=== PATIENT | male | born 1960 | race Caucasian/White ===

== ENCOUNTER 2019-02-27 14:41 | Inpatient (IN) | payer MEDICARE, MEDICAID ==
[~2019-02-27] VITALS: Ht 188 cm; Wt 102.3 kg
[2019-02-27 15:32] LABS: BASO # 0.1 x10^3/uL (0.0-0.2); BASO % 1 % (0-3); EOS % 1 % (0-3); HEMATOCRIT 47.6 % (39.0-53.0); HEMOGLOBIN 16.4 g/dL (13.0-17.5); LYMPH # 1.2 x10^3/uL (1.0-4.8); LYMPH % 20 % (24-48); MEAN CORPUSCULAR HEMOGLOBIN 32 pg (25-35); MEAN CORPUSCULAR HGB CONC 35 g/dL (31-37); MEAN CORPUSCULAR VOLUME 93 fL (79-100); MONO # 0.4 x10^3/uL (0.0-1.1); MONO % 8 % (0-9); NEUT # 4.2 x10^3uL (1.8-7.7); NEUT % 71 % (31-73); PLATELET COUNT 201 x10^3/uL (140-400); RED CELL DISTRIBUTION WIDTH 13.6 % (11.5-14.5)
[2019-02-27 15:41] LABS: CALCIUM 9.5 mg/dL (8.5-10.1); CREATININE 1.1 mg/dL (0.7-1.3); GFR 68.8; POTASSIUM 3.9 mmol/L (3.5-5.1)
[2019-02-27 15:47] LABS: ALBUMIN 4.1 g/dL (3.4-5.0); ALBUMIN/GLOBULIN RATIO 1.1 (1.0-1.7); MAGNESIUM 1.9 mg/dL (1.8-2.4); TOTAL BILIRUBIN 0.4 mg/dL (0.2-1.0); TOTAL PROTEIN 7.8 g/dL (6.4-8.2)
--- NOTE | 2019-02-27 15:47 | PHYS DOC ---
Past History Past Medical History: Bipolar, COPD, GERD, Hypertension, Hypothyroid, Schizophrenia, Other Additional Past Medical Histor: POLYDIPSIA Past Surgical History: No Surgical History Alcohol Use: None Drug Use: None Adult General Chief Complaint Chief Complaint: MEDICAL CLEARANCE [facility] HPI Patient is a 58-year-old male who arrives via police for medical clearance for senior behavioral health after getting more aggressive with staff at facility in [place]. Patient denies any chest pain or shortness of breath. He denies any nausea, vomiting or diarrhea. He denies any specific complaints at this time.[] Review of Systems Review of Systems Constitutional: Denies fever or chills [] Respiratory: Denies cough or shortness of breath [] Cardiovascular: No additional information not addressed in HPI [] GI: Denies abdominal pain, nausea, vomiting, bloody stools or diarrhea [] Neurologic: Denies headache, focal weakness or sensory changes [] All other systems were reviewed and found to be within normal limits, except as documented in this note. Allergies Allergies Allergies Coded Allergies Type Severity Reaction Last Updated Verified blueberry Allergy Unknown 02/27/19 Yes Physical Exam Physical Exam Constitutional: Well developed, well nourished, no acute distress, non-toxic appearance. [] HENT: Normocephalic, atraumatic, bilateral external ears normal, oropharynx dry, no oral exudates, nose normal. [] Eyes: PERRLA, EOMI, conjunctiva normal, no discharge. [] Neck: Normal range of motion, no tenderness, supple, no stridor. [] Cardiovascular: Regular rate and rhythm[] Lungs & Thorax: Bilateral breath sounds clear to auscultation [] Abdomen: Bowel sounds normal, soft, no tenderness. [] Skin: Warm, dry, no erythema, no rash. [] Extremities: No tenderness, no cyanosis, no clubbing, ROM intact. [] Neurologic: Alert and oriented X 3, no focal deficits noted. [] Current Patient Data Vital Signs Vital Signs Date Time Temp Pulse Resp B/P (MAP) Pulse Ox O2 Delivery O2 Flow Rate FiO2 02/27/19 15:13 97.7 101 16 98 Room Air Lab Results Laboratory Tests Test 02/27/19 15:19 White Blood Count 6.0 x10^3/uL (4.0-11.0) Red Blood Count 5.10 x10^6/uL (4.30-5.70) Hemoglobin 16.4 g/dL (13.0-17.5) Hematocrit 47.6 % (39.0-53.0) Mean Corpuscular Volume 93 fL (79-100) Mean Corpuscular Hemoglobin 32 pg (25-35) Mean Corpuscular Hemoglobin Concent 35 g/dL (31-37) Red Cell Distribution Width 13.6 % (11.5-14.5) Platelet Count 201 x10^3/uL (140-400) Neutrophils (%) (Auto) 71 % (31-73) Lymphocytes (%) (Auto) 20 % (24-48) L Monocytes (%) (Auto) 8 % (0-9) Eosinophils (%) (Auto) 1 % (0-3) Basophils (%) (Auto) 1 % (0-3) Neutrophils # (Auto) 4.2 x10^3uL (1.8-7.7) Lymphocytes # (Auto) 1.2 x10^3/uL (1.0-4.8) Monocytes # (Auto) 0.4 x10^3/uL (0.0-1.1) Eosinophils # (Auto) 0.0 x10^3/uL (0.0-0.7) Basophils # (Auto) 0.1 x10^3/uL (0.0-0.2) Sodium Level 138 mmol/L (136-145) Potassium Level 3.9 mmol/L (3.5-5.1) Chloride Level 102 mmol/L (98-107) Carbon Dioxide Level 26 mmol/L (21-32) Anion Gap 10 (6-14) Blood Urea Nitrogen 12 mg/dL (8-26) Creatinine 1.1 mg/dL (0.7-1.3) Estimated GFR (Cockcroft-Gault) 68.8 BUN/Creatinine Ratio 11 (6-20) Glucose Level 108 mg/dL (70-99) H Calcium Level 9.5 mg/dL (8.5-10.1) Magnesium Level Pending Total Bilirubin Pending Aspartate Amino Transferase (AST) Pending Alanine Aminotransferase (ALT) Pending Alkaline Phosphatase Pending Total Protein Pending Albumin Pending Albumin/Globulin Ratio Pending EKG EKG [] Radiology/Procedures Radiology/Procedures [] Course & Med Decision Making Course & Med Decision Making Pertinent Labs and Imaging studies reviewed. (See chart for details) [] Dragon Disclaimer Dragon Disclaimer This electronic medical record was generated, in whole or in part, using a voice recognition dictation system. Departure Departure: Impression: Primary Impression: Behavior disturbance Disposition: ADMITTED INPATIENT Admitting Physician: Other (Dr. Bey) Condition: STABLE Referrals: HENNA COMBS (PCP) ROGELIO MARIANO Jr. DO Feb 27, 2019 15:47
--- NOTE | 2019-02-27 16:56 | EKG ---
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
[2019-02-27 17:15] LABS: BACTERIA,URINE 0 /HPF (0-FEW); BILIRUBIN,URINE NEG (NEG); CLARITY,URINE CLEAR; COLOR,URINE YELLOW; GLUCOSE,URINE NEG (NEG); NITRITE,URINE NEG (NEG); RBC,URINE 0 /HPF (0-2); UROBILINOGEN,URINE 0.2 mg/dL (0.2 mg/dL); WBC,URINE 0 /HPF (0-4)
[2019-02-27 17:50] LABS: BARBITURATES NEG (NEG); BENZODIAZEPINES NEG (NEG); CANNABINOIDS NEG (NEG); COCAINE NEG (NEG); METHADONE NEG (NEG); OPIATES NEG (NEG); PHENCYCLIDINE NEG (NEG)
[2019-02-27 17:51] LABS: AMPHETAMINE/METHAMPHETAMINE NEG (NEG)
[2019-02-27] MEDS ORDERED: SIME80TA14 PO (17:58)
[2019-02-27] MEDS ORDERED: SERT100T PO (17:58)
[2019-02-27] MEDS ORDERED: FURO20TA3 PO (17:58)
[2019-02-27] MEDS ORDERED: CELE100C PO (17:58)
[2019-02-27] MEDS ORDERED: MEDR150D3 IM (17:58)
[2019-02-27] MEDS ORDERED: DIVA500T2 PO (17:58)
[2019-02-27] MEDS ORDERED: ATOR10TA60 PO (17:58)
[2019-02-27] MEDS ORDERED: ACET325T21 PO (17:58)
[2019-02-27] MEDS ORDERED: DOCU-109 PO (17:58)
[2019-02-27] MEDS ORDERED: BISA5TAB4 PO (17:58)
[2019-02-27] MEDS ORDERED: ASPI-612 PO (17:58)
[2019-02-27] MEDS ORDERED: HALO5TAB PO (17:58)
[2019-02-27] MEDS ORDERED: HALO100A2 IM (17:58)
[2019-02-27] MEDS ORDERED: FLUT1DIS IH (17:58)
[2019-02-27] MEDS ORDERED: BUPR-192 PO (17:58)
[2019-02-27] MEDS ORDERED: CHOL200078 PO (17:58)
[2019-02-27] MEDS ORDERED: TRAM50TA PO (17:58)
[2019-02-27] MEDS ORDERED: LEVO100T5 PO (17:58)
[2019-02-27] MEDS ORDERED: OMEP20CA16 PO (17:58)
[2019-02-27] MEDS ORDERED: MULT-114 PO (17:58)
[2019-02-27] MEDS ORDERED: BENZ0.5T32 PO (17:58)
--- NOTE | 2019-02-27 18:35 | NUR ---
Admission Note with Justification for Admission to [facility] Patient admitted to [facility] for protective oversight for emergency stabilization of acute psychiatric crisis. Pt admitted from: Hospital ER Mode of arrival: EMS Accompanied By: EMS Precipitating behaviors that initiated intake and admission:Polydypsia, bipolar, schizophrenia, becoming more aggressive with staff and redirects, thinks he is God and will do what he wants. Description of failure of out patient attempts at stabilization in previous setting list behavior and medication trials: 1:1, change medications. Behaviors and assessment findings upon admission: calm, cooperative, compliant, alert and oriented. Plan: Admit for protective oversight for adjustment and stabilization of medications, behaviors and mood. Intense treatment regimen including groups, medication adjustments, therapy, consistent regimen for ADL's, self care, and sleep hygiene. Daily monitoring by Inpatient staff, Psychiatry, and Medical Physician.
[2019-02-27 18:51] VITALS: BP 121/91
[2019-02-27] MEDS ORDERED: BISACODYL TAB 5 MG TABLET.DR. PO PRN (20:00)
[2019-02-27] MEDS: BENZTROPINE MESYLATE 0.5 MG TABLET PO SCH (20:39)
[2019-02-27] MEDS: SIMETHICONE 80 MG TAB.CHEW PO SCH (20:39)
[2019-02-27] MEDS: HALOPERIDOL 5 MG TABLET PO SCH (20:40)
[2019-02-27] MEDS: ATORVASTATIN CALCIUM 10 MG TABLET. PO SCH (20:40)
[2019-02-27] MEDS: traMADol 50 MG TABLET PO SCH (20:40)
[2019-02-27] MEDS: DOCUSATE SODIUM 100 MG CAPSULE PO SCH (20:41)
[2019-02-27] MEDS: DIVALPROEX SODIUM 250 MG TABLET.DR. PO SCH (20:41)
[2019-02-27] MEDS: BUDESONIDE 0.5 MG/2 ML NEBU NEB SCH (21:00)
[2019-02-27] MEDS: ALBUTEROL SULFATE 2.5 MG/3 ML NEBU. NEB SCH (21:00)
[2019-02-27] MEDS ORDERED: NON FORMULARY ITEM (Fluticasone/Salmeterol (Advair 100-50 Diskus) 1 PUFF) IH SCH (21:00)
--- NOTE | 2019-02-27 21:13 | PDOC ---
Exam Note: Rafael Note: Please also refer to the separate dictated note~for this date of service dictated separately. Discussed the patient with Nursing staff reviewed the chart.~Reviewed interim history and current functioning. Reviewed vital signs,~Labs/ Radiology~and current medications noted below. Continue current treatment with the changes noted in the dictated addendum note Assessment: Vital Signs/I&O: Vital Signs Date Time Temp Pulse Resp B/P (MAP) Pulse Ox O2 Delivery O2 Flow Rate FiO2 02/27/19 20:40 18 Room Air 02/27/19 18:51 97.6 105 121/91 (101) 98 Labs: Laboratory Tests Test 02/27/19 15:19 02/27/19 16:35 White Blood Count 6.0 x10^3/uL (4.0-11.0) Red Blood Count 5.10 x10^6/uL (4.30-5.70) Hemoglobin 16.4 g/dL (13.0-17.5) Hematocrit 47.6 % (39.0-53.0) Mean Corpuscular Volume 93 fL (79-100) Mean Corpuscular Hemoglobin 32 pg (25-35) Mean Corpuscular Hemoglobin Concent 35 g/dL (31-37) Red Cell Distribution Width 13.6 % (11.5-14.5) Platelet Count 201 x10^3/uL (140-400) Neutrophils (%) (Auto) 71 % (31-73) Lymphocytes (%) (Auto) 20 % (24-48) L Monocytes (%) (Auto) 8 % (0-9) Eosinophils (%) (Auto) 1 % (0-3) Basophils (%) (Auto) 1 % (0-3) Neutrophils # (Auto) 4.2 x10^3uL (1.8-7.7) Lymphocytes # (Auto) 1.2 x10^3/uL (1.0-4.8) Monocytes # (Auto) 0.4 x10^3/uL (0.0-1.1) Eosinophils # (Auto) 0.0 x10^3/uL (0.0-0.7) Basophils # (Auto) 0.1 x10^3/uL (0.0-0.2) Sodium Level 138 mmol/L (136-145) Potassium Level 3.9 mmol/L (3.5-5.1) Chloride Level 102 mmol/L (98-107) Carbon Dioxide Level 26 mmol/L (21-32) Anion Gap 10 (6-14) Blood Urea Nitrogen 12 mg/dL (8-26) Creatinine 1.1 mg/dL (0.7-1.3) Estimated GFR (Cockcroft-Gault) 68.8 BUN/Creatinine Ratio 11 (6-20) Glucose Level 108 mg/dL (70-99) H Calcium Level 9.5 mg/dL (8.5-10.1) Magnesium Level 1.9 mg/dL (1.8-2.4) Total Bilirubin 0.4 mg/dL (0.2-1.0) Aspartate Amino Transferase (AST) 23 U/L (15-37) Alanine Aminotransferase (ALT) 27 U/L (16-63) Alkaline Phosphatase 108 U/L (46-116) Total Protein 7.8 g/dL (6.4-8.2) Albumin 4.1 g/dL (3.4-5.0) Albumin/Globulin Ratio 1.1 (1.0-1.7) Urine Collection Type Unknown Urine Color Yellow Urine Clarity Clear Urine pH 7.0 Urine Specific Benedict 1.010 Urine Protein Neg (NEG-TRACE) Urine Glucose (UA) Neg mg/dL (NEG) Urine Ketones (Stick) Neg mg/dL (NEG) Urine Blood Neg (NEG) Urine Nitrite Neg (NEG) Urine Bilirubin Neg (NEG) Urine Urobilinogen Dipstick 0.2 mg/dL (0.2 mg/dL) Urine Leukocyte Esterase Neg (NEG) Urine RBC 0 /HPF (0-2) Urine WBC 0 /HPF (0-4) Urine Squamous Epithelial Cells None /LPF Urine Bacteria 0 /HPF (0-FEW) Urine Opiates Screen Neg (NEG) Urine Methadone Screen Neg (NEG) Urine Barbiturates Neg (NEG) Urine Phencyclidine Screen Neg (NEG) Urine Amphetamine/Methamphetamine Neg (NEG) Urine Benzodiazepines Screen Neg (NEG) Urine Cocaine Screen Neg (NEG) Urine Cannabinoids Screen Neg (NEG) Ethyl Alcohol Level < 10 mg/dL (0-10) Urine Ethyl Alcohol Neg (NEG) Current Medications: Meds: Current Medications Medications (Trade) Dose Ordered Sig/Rober Route PRN Reason Start Time Stop Time Status Last Admin Dose Admin Haloperidol (Haldol) 5 mg BID PO 12/30/19 21:00 02/27/19 20:40 Tramadol HCl (Ultram) 50 mg HS PO 02/27/19 21:00 02/27/19 20:40 Divalproex Sodium (Depakote) 500 mg TID PO 02/27/19 21:00 02/27/19 20:41 Atorvastatin Calcium (Lipitor) 10 mg QHS PO 02/27/19 21:00 02/27/19 20:40 Benztropine Mesylate (Cogentin) 0.5 mg BID PO 02/27/19 21:00 02/27/19 20:39 Docusate Sodium (Colace) 100 mg BID PO 02/27/19 21:00 02/27/19 20:41 Simethicone (Gas-X) 120 mg TID PO 02/27/19 21:00 02/27/19 20:39 I have reviewed the current psychotropics carefully including drug interactions. Risk benefit ratio favors no change other than as noted in my dictated progress note. Diagnosis: Problems: (1) Anxiety disorder (2) Impulse control disorder (3) Schizoaffective disorder, bipolar type (4) Schizoaffective disorder, chronic condition with acute exacerbation LEONARD ASHFORD MD Feb 27, 2019 21:13
--- NOTE | 2019-02-28 00:12 | NUR ---
Nursing Note The patient was located in his room laying in bed for his assessment and medication pass. The patient was compliant and appropriate during interactions with this nurse. The patient took his medication whole. The patient was cooperative with HS cares. The patient is currently sleeping
[2019-02-28] MEDS ORDERED: MAG HYDROX/AL HYDROX/SIMETH 30 ML ORAL.SUSP PO PRN (04:15)
[2019-02-28] MEDS ORDERED: METHYL SALICYLATE/MENTHOL TOPICAL OINTMENT 57GM TUBE. TP PRN (04:15)
[2019-02-28] MEDS ORDERED: ACETAMINOPHEN 325 MG TABLET PO PRN (04:15)
[2019-02-28] MEDS ORDERED: MAGNESIUM HYDROXIDE 2,400 MG/30 ML ORAL.SUSP. PO PRN (04:15)
[2019-02-28 05:19] VITALS: BP 136/98
[2019-02-28] MEDS: LEVOTHYROXINE 100 MCG TABLET PO SCH (05:45)
[2019-02-28] MEDS: ALBUTEROL SULFATE 2.5 MG/3 ML NEBU. NEB SCH ×4 (06:30→20:00)
[2019-02-28 07:48] LABS: BASO # 0.2 x10^3/uL (0.0-0.2); BASO % 2 % (0-3); EOS # 0.1 x10^3/uL (0.0-0.7); EOS % 1 % (0-3); HEMOGLOBIN 15.6 g/dL (13.0-17.5); LYMPH # 2.2 x10^3/uL (1.0-4.8); LYMPH % 33 % (24-48); MEAN CORPUSCULAR HEMOGLOBIN 32 pg (25-35); MEAN CORPUSCULAR HGB CONC 35 g/dL (31-37); MEAN CORPUSCULAR VOLUME 92 fL (79-100); MONO # 0.5 x10^3/uL (0.0-1.1); MONO % 7 % (0-9); NEUT # 3.9 x10^3uL (1.8-7.7); NEUT % 57 % (31-73); PLATELET COUNT 190 x10^3/uL (140-400); RED BLOOD COUNT 4.88 x10^6/uL (4.30-5.70); RED CELL DISTRIBUTION WIDTH 13.9 % (11.5-14.5); WHITE BLOOD COUNT 6.9 x10^3/uL (4.0-11.0)
[2019-02-28 07:59] LABS: ALBUMIN 3.6 g/dL (3.4-5.0); ALBUMIN/GLOBULIN RATIO 1.1 (1.0-1.7); ALK PHOS 96 U/L (46-116); ALT (SGPT) 23 U/L (16-63); ANION GAP 12 (6-14); AST (SGOT) 19 U/L (15-37); BLOOD UREA NITROGEN 13 mg/dL (8-26); BUN/CREATININE RATIO 16 (6-20); CALCIUM 9.2 mg/dL (8.5-10.1); CARBON DIOXIDE 22 mmol/L (21-32); CHLORIDE 103 mmol/L (98-107); CREATININE 0.8 mg/dL (0.7-1.3); GFR 99.3; GLUCOSE 85 mg/dL (70-99); MAGNESIUM 1.7 mg/dL (1.8-2.4); POTASSIUM 4.3 mmol/L (3.5-5.1); SODIUM 137 mmol/L (136-145); TOTAL BILIRUBIN 0.4 mg/dL (0.2-1.0)
[2019-02-28 08:06] LABS: VAL ACID 31 mcg/mL (50-100)
[2019-02-28] MEDS: FUROSEMIDE 20 MG TABLET PO SCH (09:08)
[2019-02-28] MEDS: MULTIVITAMIN with MINERAL TABLET. PO SCH (09:08)
[2019-02-28] MEDS: DIVALPROEX SODIUM 250 MG TABLET.DR. PO SCH ×3 (09:09→20:40)
[2019-02-28] MEDS: CHOLECALCIFEROL (VITAMIN D3) 1,000 UNIT TABLET PO SCH (09:09)
[2019-02-28] MEDS: ASPIRIN ENTERIC COATED 81 MG TABLET.DR. PO SCH (09:09)
[2019-02-28] MEDS: buPROPion XL 150 MG TAB.ER.24H PO SCH (09:09)
[2019-02-28] MEDS: BENZTROPINE MESYLATE 0.5 MG TABLET PO SCH ×2 (09:09→20:41)
[2019-02-28] MEDS: PANTOPRAZOLE 40 MG TABLET. PO SCH (09:09)
[2019-02-28] MEDS: HALOPERIDOL 5 MG TABLET PO SCH ×2 (09:09→20:41)
[2019-02-28] MEDS: SERTRALINE 100 MG TABLET. PO SCH (09:09)
[2019-02-28] MEDS: DOCUSATE SODIUM 100 MG CAPSULE PO SCH ×2 (09:09→20:41)
[2019-02-28] MEDS: CELECOXIB 100 MG CAPSULE PO SCH (09:09)
[2019-02-28] MEDS: SIMETHICONE 80 MG TAB.CHEW PO SCH ×3 (09:10→20:42)
[2019-02-28] MEDS: NICOTINE 21MG PATCH. TD SCH (09:13)
--- NOTE | 2019-02-28 11:54 | NUR ---
Patient refused his respiratory treatments and his smoking cessation counseling session, per nurse conversation with respiratory therapy. Nurse then spoke with patient and he stated he does not want the breathing treatments. He accepted the nicotine patch at morning med pass. Nurse will speak with Dr. Hall about discontinuing the respiratory treatments as patient is his own person.
[2019-02-28] MEDS: BUDESONIDE 0.5 MG/2 ML NEBU NEB SCH ×2 (12:01→12:02)
[2019-02-28] MEDS: HALOPERIDOL DECANOATE IM ER 100 MG/ML VIAL. IM SCH (15:04)
--- NOTE | 2019-02-28 15:59 | NUR ---
Assumed care of patient around 1515. Patient is currently in his room. Will continue to monitor.
--- NOTE | 2019-02-28 16:00 | NUR ---
SAMIRA met with pt. to collect information for psychosocial. Pt. reported, "I have seizures" and believes his last one was approximately "eight months ago". SAMIRA passed this information on to pt. nurse for further investigation.
[2019-02-28 16:16] VITALS: BP 119/79
--- NOTE | 2019-02-28 16:49 | HP ---
ADMIT DATE: 02/27/2019 PSYCHIATRIC ADMISSION HISTORY AND EVALUATION IDENTIFYING DATA: The patient is a 58-year-old male, [facility] [address] [place] [address] in [place] by his primary care physician on account of an acute exacerbation of his schizophrenia, chronic paranoid type. The patient has been increasingly paranoid, agitated, aggressive, refusing cares. He is not being compliant with having a bath or showers in several weeks. DICTATION ENDS HERE LEONARD ASHFORD MD DR: JULIAN/hemal JOB#: [id number] / [id number]
[2019-02-28 19:21] LABS: THYROID STIM HORMONE (TSH) 1.045 uIU/mL (0.358-3.740)
[2019-02-28] MEDS: ATORVASTATIN CALCIUM 10 MG TABLET. PO SCH (20:39)
[2019-02-28] MEDS: DIVALPROEX SODIUM 125 MG TABLET.DR. PO SCH (20:40)
[2019-02-28] MEDS: traMADol 50 MG TABLET PO SCH (20:41)
--- NOTE | 2019-02-28 21:31 | PDOC ---
Exam Note: Rafael Note: Please also refer to the separate dictated note~for this date of service dictated separately.~Patient seen individually. Discussed the patient with Nursing staff reviewed the chart.~Reviewed interim history and current functioning. Reviewed vital signs,~Labs/ Radiology~and current medications noted below. Continue current treatment with the changes noted in the dictated addendum note Assessment: Vital Signs/I&O: Vital Signs Date Time Temp Pulse Resp B/P (MAP) Pulse Ox O2 Delivery O2 Flow Rate FiO2 02/28/19 20:41 Room Air 02/28/19 16:16 98.2 68 20 119/79 (92) 96 I & O 02/27/19 02/27/19 02/28/19 15:00 23:00 07:00 Intake Total 480 ml Balance 480 ml Labs: Laboratory Tests Test 02/28/19 07:30 02/28/19 07:33 Glucose (Fingerstick) 104 mg/dL (70-99) H White Blood Count 6.9 x10^3/uL (4.0-11.0) Red Blood Count 4.88 x10^6/uL (4.30-5.70) Hemoglobin 15.6 g/dL (13.0-17.5) Hematocrit 45.0 % (39.0-53.0) Mean Corpuscular Volume 92 fL (79-100) Mean Corpuscular Hemoglobin 32 pg (25-35) Mean Corpuscular Hemoglobin Concent 35 g/dL (31-37) Red Cell Distribution Width 13.9 % (11.5-14.5) Platelet Count 190 x10^3/uL (140-400) Neutrophils (%) (Auto) 57 % (31-73) Lymphocytes (%) (Auto) 33 % (24-48) Monocytes (%) (Auto) 7 % (0-9) Eosinophils (%) (Auto) 1 % (0-3) Basophils (%) (Auto) 2 % (0-3) Neutrophils # (Auto) 3.9 x10^3uL (1.8-7.7) Lymphocytes # (Auto) 2.2 x10^3/uL (1.0-4.8) Monocytes # (Auto) 0.5 x10^3/uL (0.0-1.1) Eosinophils # (Auto) 0.1 x10^3/uL (0.0-0.7) Basophils # (Auto) 0.2 x10^3/uL (0.0-0.2) Sodium Level 137 mmol/L (136-145) Potassium Level 4.3 mmol/L (3.5-5.1) Chloride Level 103 mmol/L (98-107) Carbon Dioxide Level 22 mmol/L (21-32) Anion Gap 12 (6-14) Blood Urea Nitrogen 13 mg/dL (8-26) Creatinine 0.8 mg/dL (0.7-1.3) Estimated GFR (Cockcroft-Gault) 99.3 BUN/Creatinine Ratio 16 (6-20) Glucose Level 85 mg/dL (70-99) Calcium Level 9.2 mg/dL (8.5-10.1) Magnesium Level 1.7 mg/dL (1.8-2.4) L Total Bilirubin 0.4 mg/dL (0.2-1.0) Aspartate Amino Transferase (AST) 19 U/L (15-37) Alanine Aminotransferase (ALT) 23 U/L (16-63) Alkaline Phosphatase 96 U/L (46-116) Total Protein 7.0 g/dL (6.4-8.2) Albumin 3.6 g/dL (3.4-5.0) Albumin/Globulin Ratio 1.1 (1.0-1.7) Triglycerides Level 130 mg/dL (0-150) Cholesterol Level 117 mg/dL (0-200) LDL Cholesterol, Calculated 58 mg/dL (0-100) VLDL Cholesterol, Calculated 26 mg/dL (0-40) Non-HDL Cholesterol Calculated 84 mg/dL (0-129) HDL Cholesterol 33 mg/dL (40-60) L Cholesterol/HDL Ratio 3.0 Vitamin B12 Level 622 pg/mL (247-911) 25-Hydroxy Vitamin D Total 38.9 ng/mL (30-100) Thyroid Stimulating Hormone (TSH) 1.045 uIU/mL (0.358-3.740) Valproic Acid Level 31 mcg/mL (50-100) L Valproic Acid Last Dose Date 02/27/19 Valproic Acid Last Dose Time 2100 Treponema pallidum Antibody Nonreactive (Nonreactive) Current Medications: Meds: Current Medications Medications (Trade) Dose Ordered Sig/Rober Route PRN Reason Start Time Stop Time Status Last Admin Dose Admin Bupropion HCl (Wellbutrin Xl) 150 mg DAILYWBKFT PO 02/28/19 08:00 02/28/19 09:09 Celecoxib (CeleBREX) 200 mg DAILY PO 02/28/19 09:00 02/28/19 09:09 Haloperidol Decanoate (Haldol Decanoate Im Extended Release) 100 mg Q2WKS IM 02/28/19 12:00 02/28/19 15:04 Aspirin (Aspirin Enteric Coated) 81 mg DAILY PO 02/28/19 09:00 02/28/19 09:09 Furosemide (Lasix) 20 mg DAILY PO 02/28/19 09:00 02/28/19 09:08 Levothyroxine Sodium (Synthroid) 100 mcg DAILY06 PO 02/28/19 06:00 02/28/19 05:45 Sertraline HCl (Zoloft) 100 mg DAILY PO 02/28/19 09:00 02/28/19 09:09 Vitamin D (Vitamin D3) 2,000 unit DAILY PO 02/28/19 09:00 02/28/19 09:09 Multivitamins/ Calcium (Thera-M Plus) 1 tab DAILY PO 02/28/19 09:00 02/28/19 09:08 Pantoprazole Sodium (Protonix) 40 mg DAILYAC PO 02/28/19 07:30 02/28/19 09:09 Nicotine (Nicoderm Cq 21mg) 1 patch DAILY TD 02/28/19 09:00 02/28/19 09:13 Divalproex Sodium (Depakote) 500 mg TID PO 02/28/19 21:00 02/28/19 20:40 Divalproex Sodium (Depakote) 125 mg TID PO 02/28/19 21:00 02/28/19 20:40 I have reviewed the current psychotropics carefully including drug interactions. Risk benefit ratio favors no change other than as noted in my dictated progress note. Diagnosis: Problems: (1) Anxiety disorder (2) Impulse control disorder (3) Schizoaffective disorder, bipolar type (4) Schizoaffective disorder, chronic condition with acute exacerbation (5) Schizophrenia, paranoid, chronic with acute exacerbation LEONARD ASHFORD MD Feb 28, 2019 21:31
[2019-03-01 00:06] LABS: HEMOGLOBIN A1C 5.5 % (4.8-5.6); THYROXINE 8.1 ug/dL (4.5-12.0)
[2019-03-01] MEDS: BUDESONIDE 0.5 MG/2 ML NEBU NEB SCH ×3 (00:13→21:26)
--- NOTE | 2019-03-01 01:37 | NUR ---
This shift pt has mainly been in his room other than coming to day room briefly. He took his meds whole without difficulty. He asked about using a WC even though he can walk independently. Pt encouraged to continue to walk to maintain his strength. No behaviors this shift.
[2019-03-01 05:16] VITALS: BP 116/84
[2019-03-01] MEDS: ALBUTEROL SULFATE 2.5 MG/3 ML NEBU. NEB SCH ×4 (05:38→20:00)
[2019-03-01] MEDS: LEVOTHYROXINE 100 MCG TABLET PO SCH (05:46)
[2019-03-01] MEDS: DOCUSATE SODIUM 100 MG CAPSULE PO SCH ×2 (09:29→20:15)
[2019-03-01] MEDS: buPROPion XL 150 MG TAB.ER.24H PO SCH (09:29)
[2019-03-01] MEDS: NICOTINE 21MG PATCH. TD SCH (09:29)
[2019-03-01] MEDS: CHOLECALCIFEROL (VITAMIN D3) 1,000 UNIT TABLET PO SCH (09:29)
[2019-03-01] MEDS: HALOPERIDOL 5 MG TABLET PO SCH ×2 (09:30→20:15)
[2019-03-01] MEDS: DIVALPROEX SODIUM 125 MG TABLET.DR. PO SCH ×3 (09:30→20:14)
[2019-03-01] MEDS: MULTIVITAMIN with MINERAL TABLET. PO SCH (09:30)
[2019-03-01] MEDS: DIVALPROEX SODIUM 250 MG TABLET.DR. PO SCH ×3 (09:30→20:14)
[2019-03-01] MEDS: BENZTROPINE MESYLATE 0.5 MG TABLET PO SCH ×2 (09:30→20:15)
[2019-03-01] MEDS: SIMETHICONE 80 MG TAB.CHEW PO SCH ×3 (09:31→20:16)
[2019-03-01] MEDS: ASPIRIN ENTERIC COATED 81 MG TABLET.DR. PO SCH (09:31)
[2019-03-01] MEDS: FUROSEMIDE 20 MG TABLET PO SCH (09:31)
[2019-03-01] MEDS: SERTRALINE 100 MG TABLET. PO SCH (09:31)
[2019-03-01] MEDS: CELECOXIB 100 MG CAPSULE PO SCH (09:31)
[2019-03-01] MEDS: PANTOPRAZOLE 40 MG TABLET. PO SCH (09:31)
--- NOTE | 2019-03-01 10:50 | CONS ---
DATE OF CONSULTATION: REASON FOR CONSULTATION: Medical management. HISTORY OF PRESENT ILLNESS: The patient is a 58-year-old male patient who was admitted on account of becoming aggressive with staff, thinks he is God and will do what he wants to do; all this in a background of schizophrenia, chronic with acute exacerbation. 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 PAST SURGICAL HISTORY: Unremarkable. FAMILY HISTORY: Noncontributory. SOCIAL HISTORY: He is a resident at [facility] on the [address] [place] [address] in [place]. He continues to smoke heavily, but does not drink alcohol or use any recreational drugs. REVIEW OF SYSTEMS: As per history of present illness. PHYSICAL EXAMINATION: GENERAL: When I examined him, the patient was resting slightly propped up in bed, in no apparent respiratory distress. There was no pallor, jaundice, cyanosis or thyromegaly. No jugular venous distention. No limb edema. VITAL SIGNS: His heart rate was 68, blood pressure was 119/79, temperature was 98.2, respiratory rate 20 and oxygen saturation was 96% on room air. HEAD, EYES, EARS, NOSE AND THROAT: Showed normocephalic, atraumatic. He is mostly edentulous. NECK: Supple. HEART: Normal first and second heart sounds. No gallop or murmur. CHEST: Clear to auscultation. No crepitation or rhonchi. ABDOMEN: Distended, soft, nontender. NEUROLOGIC: He was awake, alert, responds appropriately. All cranial nerves intact. EXTREMITIES: He moves extremities without difficulty. He ambulates without assistance or assistive devices. LABORATORY DATA: Showed a white cell count of 6000, hemoglobin 16, hematocrit 48, MCV 93 and platelet count 21,000. His chemistry showed serum sodium of 138, potassium 4.3, chloride 103, bicarbonate 22, anion gap of 12, BUN 13, creatinine 0.8, estimated GFR was 99 mL per minute, his glucose was 85, calcium was 9.2, magnesium was 1.7. Total bilirubin, AST, ALT, alkaline phosphatase were normal. Serum iron was 95, TIBC was 392 and iron saturation was 24. Urinalysis was unremarkable and toxic screen showed that his valproic acid was subtherapeutic at 31 mcg/mL. His blood alcohol level was less than 10. IMPRESSION AND PLAN: In summary, this is a 58-year-old who basically self-signed himself to this facility on account of being aggressive with staff, thinks that he is God and will do what he wants to do; all this in a background of schizophrenia, chronic, with acute exacerbation. Medically, he apparently has tardive dyskinesia, polydipsia, hypothyroidism, chronic obstructive pulmonary disease, nicotine dependence, gastroesophageal reflux disease and thyrotoxicosis. His lab work seems to be well within normal range. His vital signs are stable. Obviously, the TSH and T3, T4 and free T4 are still pending at the time of this dictation. So, all in all, the patient seems to be medically stable. I will obviously follow the lab work, particularly his thyroid function tests, to make sure that he is not thyrotoxic. Thank you, Dr. Bey, for allowing me to participate in the care of this patient. EVGENY ZAVALA MD DR: VAHID/hemal JOB#: [id number] / [id number]
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
--- NOTE | 2019-03-01 12:22 | NUR ---
Patient skipped breakfast and slept until lunch. Nurse woke him up for medications at 0945 and he was compliant and cooperative. He rolled over and went back to sleep after taking his medications. Patient up for lunch in day room. He has been calm and denied hallucinations/delusions. He made no delusional statements to this nurse. It was reported to nurse by night RN Emanuel that patient had asked about the leonela in the unit. Patient wanted to know whether floor was made of wood and if it was soft. Patient did not discuss the floor further and seemed satisfied with the nurses answer.
--- NOTE | 2019-03-01 13:30 | NUR ---
Attempted to meet and complete Activity Therapy Assessment; however, Pt. was asleep.
[2019-03-01 15:43] VITALS: BP 101/69
--- NOTE | 2019-03-01 17:23 | NUR ---
Patient continues to refuse scheduled breathing treatments. He states he does not need them.
[2019-03-01] MEDS: ATORVASTATIN CALCIUM 10 MG TABLET. PO SCH (20:15)
[2019-03-01] MEDS: traMADol 50 MG TABLET PO SCH (20:15)
--- NOTE | 2019-03-01 20:52 | PDOC ---
Exam Note: Rafael Note: Please also refer to the separate dictated note~for this date of service dictated separately.~Patient seen individually. Discussed the patient with Nursing staff reviewed the chart.~Reviewed interim history and current functioning. Reviewed vital signs,~Labs/ Radiology~and current medications noted below. Continue current treatment with the changes noted in the dictated addendum note Assessment: Vital Signs/I&O: Vital Signs Date Time Temp Pulse Resp B/P (MAP) Pulse Ox O2 Delivery O2 Flow Rate FiO2 03/01/19 15:43 97.8 79 18 101/69 (80) 95 03/01/19 05:16 Room Air I & O 02/28/19 02/28/19 03/01/19 15:00 23:00 07:00 Intake Total 960 ml 480 ml Balance 960 ml 480 ml Current Medications: Meds: Current Medications Medications (Trade) Dose Ordered Sig/Rober Route PRN Reason Start Time Stop Time Status Last Admin Dose Admin Divalproex Sodium (Depakote) 500 mg TID PO 02/28/19 21:00 03/01/19 20:14 Divalproex Sodium (Depakote) 125 mg TID PO 02/28/19 21:00 03/01/19 20:14 I have reviewed the current psychotropics carefully including drug interactions. Risk benefit ratio favors no change other than as noted in my dictated progress note. Diagnosis: Problems: (1) Anxiety disorder (2) Impulse control disorder (3) Schizoaffective disorder, bipolar type (4) Schizoaffective disorder, chronic condition with acute exacerbation (5) Schizophrenia, paranoid, chronic with acute exacerbation LEONARD ASHFORD MD Mar 01, 2019 20:52
--- NOTE | 2019-03-01 22:15 | NUR ---
Pt withdrawn to room, lying in bed at shift change. Pt calm, pleasant and interactive when approached. Pt cooperative with assessment and compliant with medications administered whole. Pt c/o LBP, rates pain 08/29, scheduled Tramadol administered.
[2019-03-02] MEDS: ACETAMINOPHEN 325 MG TABLET PO PRN (01:06)
[2019-03-02] MEDS: ALBUTEROL SULFATE 2.5 MG/3 ML NEBU. NEB SCH ×4 (05:27→20:00)
[2019-03-02 05:41] VITALS: BP 108/85
[2019-03-02] MEDS: LEVOTHYROXINE 100 MCG TABLET PO SCH (05:43)
[2019-03-02] MEDS: NICOTINE 21MG PATCH. TD SCH (08:09)
[2019-03-02] MEDS: DIVALPROEX SODIUM 250 MG TABLET.DR. PO SCH ×3 (08:10→20:09)
[2019-03-02] MEDS: SIMETHICONE 80 MG TAB.CHEW PO SCH ×3 (08:10→20:09)
[2019-03-02] MEDS: BENZTROPINE MESYLATE 0.5 MG TABLET PO SCH ×2 (08:10→20:09)
[2019-03-02] MEDS: DIVALPROEX SODIUM 125 MG TABLET.DR. PO SCH ×3 (08:10→20:08)
[2019-03-02] MEDS: HALOPERIDOL 5 MG TABLET PO SCH ×2 (08:11→20:09)
[2019-03-02] MEDS: SERTRALINE 100 MG TABLET. PO SCH (08:11)
[2019-03-02] MEDS: CHOLECALCIFEROL (VITAMIN D3) 1,000 UNIT TABLET PO SCH (08:11)
[2019-03-02] MEDS: CELECOXIB 100 MG CAPSULE PO SCH (08:11)
[2019-03-02] MEDS: MULTIVITAMIN with MINERAL TABLET. PO SCH (08:11)
[2019-03-02] MEDS: ASPIRIN ENTERIC COATED 81 MG TABLET.DR. PO SCH (08:11)
[2019-03-02] MEDS: FUROSEMIDE 20 MG TABLET PO SCH (08:12)
[2019-03-02] MEDS: buPROPion XL 150 MG TAB.ER.24H PO SCH (08:12)
[2019-03-02] MEDS: PANTOPRAZOLE 40 MG TABLET. PO SCH (08:12)
[2019-03-02] MEDS: DOCUSATE SODIUM 100 MG CAPSULE PO SCH ×2 (08:12→20:09)
--- NOTE | 2019-03-02 10:55 | NUR ---
SAMIRA left [facility] for SAMIRA Lopez at [facility] on [address] [place] [address], to discuss pt. progress. Addendum: 03/02/19 at 1521 by KRISTY OHGAN SAMIRA did receive a call back from John and upon returning his call, SAMIRA spoke to Laura, sales operations lead regarding pt. progress. SAMIRA will call again tomorrow, after treatment team, to discuss pt. progress and discharge plans.
--- NOTE | 2019-03-02 11:01 | NUR ---
Patient compliant with medications given with breakfast. Patient more interactive than on previous days, asking nurse if she thought he looked like "[place] from [employer]". He then talked about rock music and shared that he had a [place] stereo system "that rocked". Patient not social with peers and stated he prefers to be in his room laying in bed. He did not interact with his tablemate at breakfast. Patient denies delusions and hallucinations when asked. He is cooperative and calm.
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
[2019-03-02 16:24] VITALS: BP 106/77
[2019-03-02] MEDS: BUDESONIDE 0.5 MG/2 ML NEBU NEB SCH (20:00)
[2019-03-02] MEDS: ATORVASTATIN CALCIUM 10 MG TABLET. PO SCH (20:09)
[2019-03-02] MEDS: traMADol 50 MG TABLET PO SCH (20:10)
--- NOTE | 2019-03-02 20:46 | NUR ---
Pt sitting quietly in the day room at shift change. Pt calm, pleasant, and interactive with staff. Pt cooperative with assessment and compliant with medications administered whole. Pt c/o back pain rated 8/10, scheduled Tramadol administered as ordered.
--- NOTE | 2019-03-02 21:12 | PDOC ---
Exam Note: Rafael Note: Please also refer to the separate dictated note~for this date of service dictated separately.~Patient seen individually. Discussed the patient with Nursing staff reviewed the chart.~Reviewed interim history and current functioning. Reviewed vital signs,~Labs/ Radiology~and current medications noted below. Continue current treatment with the changes noted in the dictated addendum note Assessment: Vital Signs/I&O: Vital Signs Date Time Temp Pulse Resp B/P (MAP) Pulse Ox O2 Delivery O2 Flow Rate FiO2 03/02/19 16:24 98.5 71 16 106/77 (87) 95 Room Air I & O 03/01/19 03/01/19 03/02/19 15:00 23:00 07:00 Intake Total 240 ml 480 ml 240 ml Balance 240 ml 480 ml 240 ml Current Medications: I have reviewed the current psychotropics carefully including drug interactions. Risk benefit ratio favors no change other than as noted in my dictated progress note. Diagnosis: Problems: (1) Anxiety disorder (2) Impulse control disorder (3) Schizoaffective disorder, bipolar type (4) Schizoaffective disorder, chronic condition with acute exacerbation (5) Schizophrenia, paranoid, chronic with acute exacerbation LEONARD ASHFORD MD Mar 02, 2019 21:12
[2019-03-03 04:53] VITALS: BP 137/85
[2019-03-03] MEDS: LEVOTHYROXINE 100 MCG TABLET PO SCH (05:57)
--- NOTE | 2019-03-03 06:45 | PN ---
DATE: 02/28/2019 PSYCHIATRIC PROGRESS NOTE This late entry 02/28/2019 covers elements not covered in my initial note. SUBJECTIVE: I met with the patient in the evening. Per HUNG Younger, the patient has difficulty walking and then talked about walking 1 mile a day, smoking cigarettes. He states he had a seizure 8 months ago, none of this is verified. REVIEW OF SYSTEMS: Ambulation impaired. Isolative in his room. REVIEW OF SYSTEMS: No CV, , pulmonary, eye system symptoms on review. MENTAL STATUS EXAM: Reasonably oriented. Speech has some latency, coherent. Abstraction fair, computation impaired, language function intact. Mood and affect withdrawn. LABORATORY DATA: Reviewed. IMPRESSION: Unchanged from initial note, schizoaffective disorder; paranoid type with acute exacerbation; anxiety disorder, unspecified; impulse control disorder, unspecified. PLAN: Adjust the Depakote as above. Rest unchanged. MAN Amarilis ASHFORD MD DR: JULIAN/hemal JOB#: [id number] / [id number]
[2019-03-03] MEDS: PANTOPRAZOLE 40 MG TABLET. PO SCH (08:35)
[2019-03-03] MEDS: CELECOXIB 100 MG CAPSULE PO SCH (08:35)
[2019-03-03] MEDS: BENZTROPINE MESYLATE 0.5 MG TABLET PO SCH ×2 (08:35→20:01)
[2019-03-03] MEDS: DOCUSATE SODIUM 100 MG CAPSULE PO SCH ×2 (08:35→20:01)
[2019-03-03] MEDS: ASPIRIN ENTERIC COATED 81 MG TABLET.DR. PO SCH (08:35)
[2019-03-03] MEDS: buPROPion XL 150 MG TAB.ER.24H PO SCH (08:35)
[2019-03-03] MEDS: DIVALPROEX SODIUM 250 MG TABLET.DR. PO SCH ×3 (08:36→20:00)
[2019-03-03] MEDS: SIMETHICONE 80 MG TAB.CHEW PO SCH ×3 (08:36→20:01)
[2019-03-03] MEDS: HALOPERIDOL 5 MG TABLET PO SCH ×2 (08:36→20:01)
[2019-03-03] MEDS: DIVALPROEX SODIUM 125 MG TABLET.DR. PO SCH ×3 (08:36→20:00)
[2019-03-03] MEDS: FUROSEMIDE 20 MG TABLET PO SCH (08:36)
[2019-03-03] MEDS: NICOTINE 21MG PATCH. TD SCH (08:37)
[2019-03-03] MEDS: CHOLECALCIFEROL (VITAMIN D3) 1,000 UNIT TABLET PO SCH (08:37)
[2019-03-03] MEDS: MULTIVITAMIN with MINERAL TABLET. PO SCH (08:37)
[2019-03-03] MEDS: SERTRALINE 100 MG TABLET. PO SCH (08:37)
--- NOTE | 2019-03-03 10:18 | NUR ---
SAMIRA spoke to SAMIRA Lopez at [facility] on [address], to share an update on pt. progress. John was unable to confirm pt. history of seizures, as he did a review of pt. record and nothing was found. SAMIRA will update John later today after treatment team.
--- NOTE | 2019-03-03 10:29 | PN ---
DATE: 03/01/2019 PSYCHIATRIC PROGRESS NOTE This late entry 03/01/2019 covers the elements not covered in my initial note. SUBJECTIVE: I met with the patient at length in his room in the evening of 03/01/2019. Per HUNG Byers, the patient slept 6-3/4 hours previous night. He has been isolative, somewhat paranoid, very somatically preoccupied that he is constipated, but he has had a bowel movement recently per nursing staff. REVIEW OF SYSTEMS: Other than above, no CV, , pulmonary, eye system symptoms on review. MENTAL STATUS EXAM: Oriented reasonably. Speech is coherent, has some latency. Abstraction fair, computation impaired, language function intact, attention span short. Mood and affect withdrawn, paranoid, but better than before. LABORATORY DATA: Reviewed. IMPRESSION: Schizoaffective disorder, bipolar type, mixed with psychotic features; anxiety disorder, unspecified schizophrenia, chronic paranoid with acute exacerbation, in partial remission. Rest unchanged. PLAN: No change from initial note. Continue Haldol Decanoate, Depakote is being adjusted to reach therapeutic level. Maintain Cogentin, Wellbutrin. He is on Depo-Provera and Zoloft along with oral Haldol. LEONARD ASHFORD MD DR: JULIAN/hemal JOB#: [id number] / [id number]
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
[2019-03-03] MEDS: BUDESONIDE 0.5 MG/2 ML NEBU NEB SCH ×2 (13:11→20:00)
[2019-03-03] MEDS: ALBUTEROL SULFATE 2.5 MG/3 ML NEBU. NEB SCH ×2 (13:11→20:00)
--- NOTE | 2019-03-03 13:39 | NUR ---
SAMIRA spoke to SAMIRA Lopez at [facility] on [address], regarding pt. progress and discharge scheduled for the beginning of the week after next. SW spoke to pt. regarding information shared during treatment team. Pt. was accepting to staying to get his medications adjusted.
--- NOTE | 2019-03-03 14:01 | NUR ---
PT REFUSED TXS
--- NOTE | 2019-03-03 15:10 | PN ---
DATE: 03/02/2019 This late entry 03/02/2019 covers elements not covered in my initial note. SUBJECTIVE: I met with the patient evening of 03/02/2019. Per nursing report, the patient slept 7 hours previous night, but sleeps off and on during the day. Nursing staff, Daria remarked that he seemed somewhat paranoid, bizarre at times and she will have someone with her when she assists him. He does come out for meals, then goes back to bed. Last bowel movement was 02/28/2019. He still complains of constipation, but no CV, , pulmonary, eye system symptoms on review. MENTAL STATUS EXAM: Reasonably oriented. Speech has some latency, coherent, often response is monosyllabic. Abstraction fair, computation impaired, language function intact. Mood and affect withdrawn. LABORATORY DATA: Reviewed. IMPRESSION: Unchanged from initial note. PLAN: No change from initial note. MAN Amarilis ASHFORD MD DR: JULIAN/hemal JOB#: [id number] / [id number]
--- NOTE | 2019-03-03 15:29 | NUR ---
Pt also refused smoking cessation information
[2019-03-03 15:46] VITALS: BP 120/86
--- NOTE | 2019-03-03 17:34 | NUR ---
1311 entry was in error. the patient refused.
[2019-03-03] MEDS: ATORVASTATIN CALCIUM 10 MG TABLET. PO SCH (20:01)
[2019-03-03] MEDS: traMADol 50 MG TABLET PO SCH (20:01)
--- NOTE | 2019-03-03 20:59 | PDOC ---
Exam Note: Rafael Note: Please also refer to the separate dictated note~for this date of service dictated separately.~Patient seen individually. Discussed the patient with Nursing staff reviewed the chart.~Reviewed interim history and current functioning. Reviewed vital signs,~Labs/ Radiology~and current medications noted below. Continue current treatment with the changes noted in the dictated addendum note Assessment: Vital Signs/I&O: Vital Signs Date Time Temp Pulse Resp B/P (MAP) Pulse Ox O2 Delivery O2 Flow Rate FiO2 03/03/19 15:46 97.5 77 18 120/86 (97) 96 03/03/19 04:53 Room Air I & O 03/02/19 03/02/19 03/03/19 15:00 23:00 07:00 Intake Total 840 ml 840 ml Balance 840 ml 840 ml Current Medications: I have reviewed the current psychotropics carefully including drug interactions. Risk benefit ratio favors no change other than as noted in my dictated progress note. Diagnosis: Problems: (1) Anxiety disorder (2) Impulse control disorder (3) Schizoaffective disorder, bipolar type (4) Schizoaffective disorder, chronic condition with acute exacerbation (5) Schizophrenia, paranoid, chronic with acute exacerbation LEONARD ASHFORD MD Mar 03, 2019 20:59
--- NOTE | 2019-03-03 21:43 | NUR ---
Pt withdrawn to room at shift change but did come to the day room for snack. Pt A/O, calm, pleasant, and interactive with staff. Pt cooperative with assessment and compliant with medications whole.
[2019-03-04 04:57] VITALS: BP 151/97
[2019-03-04] MEDS: ALBUTEROL SULFATE 2.5 MG/3 ML NEBU. NEB SCH (05:47)
[2019-03-04] MEDS: LEVOTHYROXINE 100 MCG TABLET PO SCH (05:58)
[2019-03-04 08:36] LABS: BASO % 0 % (0-3); EOS # 0.1 x10^3/uL (0.0-0.7); EOS % 1 % (0-3); HEMATOCRIT 43.6 % (39.0-53.0); HEMOGLOBIN 14.8 g/dL (13.0-17.5); LYMPH # 2.2 x10^3/uL (1.0-4.8); LYMPH % 30 % (24-48); MEAN CORPUSCULAR HEMOGLOBIN 32 pg (25-35); MEAN CORPUSCULAR HGB CONC 34 g/dL (31-37); MEAN CORPUSCULAR VOLUME 95 fL (79-100); MONO # 0.6 x10^3/uL (0.0-1.1); MONO % 9 % (0-9); NEUT # 4.2 x10^3uL (1.8-7.7); NEUT % 59 % (31-73); PLATELET COUNT 169 x10^3/uL (140-400); RED BLOOD COUNT 4.59 x10^6/uL (4.30-5.70); RED CELL DISTRIBUTION WIDTH 13.7 % (11.5-14.5); WHITE BLOOD COUNT 7.2 x10^3/uL (4.0-11.0)
[2019-03-04 08:44] LABS: ALBUMIN 3.5 g/dL (3.4-5.0); ALBUMIN/GLOBULIN RATIO 1.1 (1.0-1.7); ALK PHOS 88 U/L (46-116); ALT (SGPT) 36 U/L (16-63); ANION GAP 11 (6-14); AST (SGOT) 23 U/L (15-37); BLOOD UREA NITROGEN 14 mg/dL (8-26); BUN/CREATININE RATIO 18 (6-20); CALCIUM 9.1 mg/dL (8.5-10.1); CARBON DIOXIDE 25 mmol/L (21-32); CHLORIDE 103 mmol/L (98-107); CREATININE 0.8 mg/dL (0.7-1.3); GFR 99.3; GLUCOSE 83 mg/dL (70-99); POTASSIUM 4.2 mmol/L (3.5-5.1); SODIUM 139 mmol/L (136-145); TOTAL BILIRUBIN 0.5 mg/dL (0.2-1.0); TOTAL PROTEIN 6.6 g/dL (6.4-8.2)
[2019-03-04 09:03] LABS: VAL ACID 49 mcg/mL (50-100)
[2019-03-04] MEDS: PANTOPRAZOLE 40 MG TABLET. PO SCH (09:05)
[2019-03-04] MEDS: ASPIRIN ENTERIC COATED 81 MG TABLET.DR. PO SCH (09:08)
[2019-03-04] MEDS: CELECOXIB 100 MG CAPSULE PO SCH (09:08)
[2019-03-04] MEDS: DIVALPROEX SODIUM 125 MG TABLET.DR. PO SCH ×3 (09:08→21:47)
[2019-03-04] MEDS: BENZTROPINE MESYLATE 0.5 MG TABLET PO SCH ×2 (09:08→21:47)
[2019-03-04] MEDS: buPROPion XL 150 MG TAB.ER.24H PO SCH (09:08)
[2019-03-04] MEDS: DOCUSATE SODIUM 100 MG CAPSULE PO SCH ×2 (09:08→21:48)
[2019-03-04] MEDS: FUROSEMIDE 20 MG TABLET PO SCH (09:09)
[2019-03-04] MEDS: HALOPERIDOL 5 MG TABLET PO SCH ×2 (09:09→21:47)
[2019-03-04] MEDS: SIMETHICONE 80 MG TAB.CHEW PO SCH ×3 (09:09→21:47)
[2019-03-04] MEDS: DIVALPROEX SODIUM 250 MG TABLET.DR. PO SCH ×3 (09:09→21:48)
[2019-03-04] MEDS: ACETAMINOPHEN 325 MG TABLET PO PRN (09:10)
[2019-03-04] MEDS: NICOTINE 21MG PATCH. TD SCH (09:10)
[2019-03-04] MEDS: MULTIVITAMIN with MINERAL TABLET. PO SCH (09:10)
[2019-03-04] MEDS: SERTRALINE 100 MG TABLET. PO SCH (09:10)
[2019-03-04] MEDS: CHOLECALCIFEROL (VITAMIN D3) 1,000 UNIT TABLET PO SCH (09:10)
[2019-03-04] MEDS: BUDESONIDE 0.5 MG/2 ML NEBU NEB SCH ×2 (09:30→20:00)
[2019-03-04] MEDS ORDERED: ALBUTEROL SULFATE 2.5 MG/3 ML NEBU. NEB PRN (10:30)
--- NOTE | 2019-03-04 10:33 | NUR ---
Pt is delusional this am and believes he is "God's son." "but not mike, I am a man named Devante More." He stated "don't tell anyone, I don't want anyone to know. He is compliant with his medication and assessment. No agitation, no aggression at this time.
[2019-03-04 16:41] VITALS: BP 97/60
--- NOTE | 2019-03-04 21:23 | PDOC ---
Exam Note: Rafael Note: Please also refer to the separate dictated note~for this date of service dictated separately.~Patient seen individually. Discussed the patient with Nursing staff reviewed the chart.~Reviewed interim history and current functioning. Reviewed vital signs,~Labs/ Radiology~and current medications noted below. Continue current treatment with the changes noted in the dictated addendum note Assessment: Vital Signs/I&O: Vital Signs Date Time Temp Pulse Resp B/P (MAP) Pulse Ox O2 Delivery O2 Flow Rate FiO2 03/04/19 16:41 98.0 70 18 97/60 (72) 95 Room Air I & O 03/03/19 03/03/19 03/04/19 14:59 22:59 06:59 Intake Total 720 ml 1440 ml Balance 720 ml 1440 ml Labs: Laboratory Tests Test 03/04/19 07:57 White Blood Count 7.2 x10^3/uL (4.0-11.0) Red Blood Count 4.59 x10^6/uL (4.30-5.70) Hemoglobin 14.8 g/dL (13.0-17.5) Hematocrit 43.6 % (39.0-53.0) Mean Corpuscular Volume 95 fL (79-100) Mean Corpuscular Hemoglobin 32 pg (25-35) Mean Corpuscular Hemoglobin Concent 34 g/dL (31-37) Red Cell Distribution Width 13.7 % (11.5-14.5) Platelet Count 169 x10^3/uL (140-400) Neutrophils (%) (Auto) 59 % (31-73) Lymphocytes (%) (Auto) 30 % (24-48) Monocytes (%) (Auto) 9 % (0-9) Eosinophils (%) (Auto) 1 % (0-3) Basophils (%) (Auto) 0 % (0-3) Neutrophils # (Auto) 4.2 x10^3uL (1.8-7.7) Lymphocytes # (Auto) 2.2 x10^3/uL (1.0-4.8) Monocytes # (Auto) 0.6 x10^3/uL (0.0-1.1) Eosinophils # (Auto) 0.1 x10^3/uL (0.0-0.7) Basophils # (Auto) 0.0 x10^3/uL (0.0-0.2) Sodium Level 139 mmol/L (136-145) Potassium Level 4.2 mmol/L (3.5-5.1) Chloride Level 103 mmol/L (98-107) Carbon Dioxide Level 25 mmol/L (21-32) Anion Gap 11 (6-14) Blood Urea Nitrogen 14 mg/dL (8-26) Creatinine 0.8 mg/dL (0.7-1.3) Estimated GFR (Cockcroft-Gault) 99.3 BUN/Creatinine Ratio 18 (6-20) Glucose Level 83 mg/dL (70-99) Calcium Level 9.1 mg/dL (8.5-10.1) Total Bilirubin 0.5 mg/dL (0.2-1.0) Aspartate Amino Transferase (AST) 23 U/L (15-37) Alanine Aminotransferase (ALT) 36 U/L (16-63) Alkaline Phosphatase 88 U/L (46-116) Total Protein 6.6 g/dL (6.4-8.2) Albumin 3.5 g/dL (3.4-5.0) Albumin/Globulin Ratio 1.1 (1.0-1.7) Valproic Acid Level 49 mcg/mL (50-100) L Valproic Acid Last Dose Date 03/03/19 Valproic Acid Last Dose Time 2100 Current Medications: Meds: Current Medications Medications (Trade) Dose Ordered Sig/Rober Route PRN Reason Start Time Stop Time Status Last Admin Dose Admin Bupropion HCl (Wellbutrin Xl) 300 mg [id number] PO 03/04/19 08:00 03/04/19 09:08 I have reviewed the current psychotropics carefully including drug interactions. Risk benefit ratio favors no change other than as noted in my dictated progress note. Diagnosis: Problems: (1) Anxiety disorder (2) Impulse control disorder (3) Schizoaffective disorder, bipolar type (4) Schizoaffective disorder, chronic condition with acute exacerbation (5) Schizophrenia, paranoid, chronic with acute exacerbation LEONARD ASHFORD MD Mar 04, 2019 21:23
[2019-03-04] MEDS: ATORVASTATIN CALCIUM 10 MG TABLET. PO SCH (21:47)
[2019-03-04] MEDS: traMADol 50 MG TABLET PO SCH (21:47)
[2019-03-05] MEDS: ACETAMINOPHEN 325 MG TABLET PO PRN ×2 (00:56→14:03)
--- NOTE | 2019-03-05 02:56 | NUR ---
Nsg Note: Patient was in room at time of medication administration and assessments. Patient was calm, compliant and cooperative with cares. Delusional. Patient went back to sleep shortly after. Patient awoke around 0100 with pain. PRN given. No other notable behaviors at this time.
[2019-03-05 05:01] VITALS: BP 123/82
[2019-03-05] MEDS: LEVOTHYROXINE 100 MCG TABLET PO SCH (05:13)
[2019-03-05] MEDS: ASPIRIN ENTERIC COATED 81 MG TABLET.DR. PO SCH (08:52)
[2019-03-05] MEDS: CELECOXIB 100 MG CAPSULE PO SCH (08:52)
[2019-03-05] MEDS: buPROPion XL 150 MG TAB.ER.24H PO SCH (08:52)
[2019-03-05] MEDS: PANTOPRAZOLE 40 MG TABLET. PO SCH (08:52)
[2019-03-05] MEDS: DIVALPROEX SODIUM 125 MG TABLET.DR. PO SCH ×3 (08:53→21:01)
[2019-03-05] MEDS: DOCUSATE SODIUM 100 MG CAPSULE PO SCH ×2 (08:53→21:02)
[2019-03-05] MEDS: HALOPERIDOL 5 MG TABLET PO SCH ×2 (08:53→21:01)
[2019-03-05] MEDS: BENZTROPINE MESYLATE 0.5 MG TABLET PO SCH ×2 (08:53→21:02)
[2019-03-05] MEDS: SERTRALINE 100 MG TABLET. PO SCH (08:53)
[2019-03-05] MEDS: DIVALPROEX SODIUM 250 MG TABLET.DR. PO SCH ×3 (08:53→21:02)
[2019-03-05] MEDS: FUROSEMIDE 20 MG TABLET PO SCH (08:53)
[2019-03-05] MEDS: SIMETHICONE 80 MG TAB.CHEW PO SCH ×3 (08:53→21:02)
[2019-03-05] MEDS: MULTIVITAMIN with MINERAL TABLET. PO SCH (08:53)
[2019-03-05] MEDS: CHOLECALCIFEROL (VITAMIN D3) 1,000 UNIT TABLET PO SCH (08:53)
[2019-03-05] MEDS: NICOTINE 21MG PATCH. TD SCH (08:54)
[2019-03-05] MEDS: BUDESONIDE 0.5 MG/2 ML NEBU NEB SCH ×2 (10:15→20:00)
--- NOTE | 2019-03-05 10:24 | NUR ---
Pt attended breakfast, no agitation, no aggression. Denies hallucinations and delusions not apparent at this time nor will pt speak about them publicly. He is compliant with his medication and assessment.
[2019-03-05 15:49] VITALS: BP 148/98
--- NOTE | 2019-03-05 20:44 | PDOC ---
Exam Note: Rafael Note: Please also refer to the separate dictated note~for this date of service dictated separately.~Patient seen individually. Discussed the patient with Nursing staff reviewed the chart.~Reviewed interim history and current functioning. Reviewed vital signs,~Labs/ Radiology~and current medications noted below. Continue current treatment with the changes noted in the dictated addendum note Assessment: Vital Signs/I&O: Vital Signs Date Time Temp Pulse Resp B/P (MAP) Pulse Ox O2 Delivery O2 Flow Rate FiO2 03/05/19 15:49 98.2 81 16 148/98 (115) 94 03/04/19 22:59 Room Air I & O 03/04/19 03/04/19 03/05/19 15:00 23:00 07:00 Intake Total 600 ml 520 ml Balance 600 ml 520 ml Current Medications: I have reviewed the current psychotropics carefully including drug interactions. Risk benefit ratio favors no change other than as noted in my dictated progress note. Diagnosis: Problems: (1) Anxiety disorder (2) Impulse control disorder (3) Schizoaffective disorder, bipolar type (4) Schizoaffective disorder, chronic condition with acute exacerbation (5) Schizophrenia, paranoid, chronic with acute exacerbation LEONARD ASHFORD MD Mar 05, 2019 20:44
[2019-03-05] MEDS: traMADol 50 MG TABLET PO SCH (21:02)
[2019-03-05] MEDS: ATORVASTATIN CALCIUM 10 MG TABLET. PO SCH (21:02)
--- NOTE | 2019-03-06 00:42 | NUR ---
Nsg Note: Patient was in day room at time of medication administration and assessments. Patient was calm, compliant and cooperative at the time. Patient was somewhat inappropriate in the beginning of the shift coming up to the window saying, "Well high there pretty lady..." Redirected to day room and instructed to wait there for RN. Patient went off to bed shortly after interaction. Patient is delusional and nonsensical at times. No other notable behaviors at this time.
[2019-03-06] MEDS: LEVOTHYROXINE 100 MCG TABLET PO SCH (05:45)
[2019-03-06 05:57] VITALS: BP 110/79
--- NOTE | 2019-03-06 07:04 | PN ---
DATE: 03/04/2019 PSYCHIATRIC PROGRESS NOTE This late entry of 03/04/2019 covers the elements not covered in my initial note. SUBJECTIVE: I met with the patient in the evening of 03/04/2019. The patient slept 4-1/4 hours previous night. He remains somewhat delusional, believes he is son of Edmond and told the nursing staff not to tell anyone. REVIEW OF SYSTEMS: No CV, , pulmonary, eye system symptoms on review. MENTAL STATUS EXAM: Reasonably oriented. Speech has some latency, coherent. Abstraction fair, computation impaired, language function intact, attention span short. Mood and affect remains a little anxious, labile at times, but improved. LABORATORY DATA: Reviewed. IMPRESSION: Unchanged from initial note. PLAN: No change from initial note. Depakote is being adjusted to reach therapeutic level. We may need to increase the oral Haldol as well. MAN Amarilis ASHFORD MD DR: JULIAN/hemal JOB#: [id number] / [id number]
--- NOTE | 2019-03-06 07:15 | PN ---
DATE: 03/03/2019 PSYCHIATRIC PROGRESS NOTE This late entry, 03/03/2019, covers elements not covered in my initial note. SUBJECTIVE: I met with the patient in the evening and staffed at a treatment team meeting with the entire team earlier in the day. Per Radha RN, the patient slept 6 hours previous night, appetite 50%, spends much time in his room, seems to have a predisposition to drinking excessive amount of fluids. Labs to be checked on 03/04/2019. He is looking out of his panoramic window as I entered his room and we talked about [employer] on the side. He states he wants to go to school and may consider [employer]. He seemed less paranoid, less labile. REVIEW OF SYSTEMS: No CV, , pulmonary, eye system symptoms on review. MENTAL STATUS EXAM: Reasonably oriented. Speech is coherent, abstraction fair, computation impaired, language function intact. Mood and affect, lability is improved. LABORATORY DATA: Reviewed. IMPRESSION: Unchanged from initial note. PLAN: Increase Wellbutrin-XL from 150 mg a day to 300 mg a day. Rest unchanged. MAN Amarilis ASHFORD MD DR: JULIAN/hemal JOB#: [id number] / [id number]
[2019-03-06] MEDS: BUDESONIDE 0.5 MG/2 ML NEBU NEB SCH ×2 (08:00→20:00)
[2019-03-06] MEDS: PANTOPRAZOLE 40 MG TABLET. PO SCH (08:19)
[2019-03-06] MEDS: DOCUSATE SODIUM 100 MG CAPSULE PO SCH ×2 (08:19→20:07)
[2019-03-06] MEDS: BENZTROPINE MESYLATE 0.5 MG TABLET PO SCH ×2 (08:19→20:07)
[2019-03-06] MEDS: CELECOXIB 100 MG CAPSULE PO SCH (08:19)
[2019-03-06] MEDS: DIVALPROEX SODIUM 250 MG TABLET.DR. PO SCH ×3 (08:19→20:08)
[2019-03-06] MEDS: buPROPion XL 150 MG TAB.ER.24H PO SCH (08:19)
[2019-03-06] MEDS: ASPIRIN ENTERIC COATED 81 MG TABLET.DR. PO SCH (08:19)
[2019-03-06] MEDS: FUROSEMIDE 20 MG TABLET PO SCH (08:20)
[2019-03-06] MEDS: SERTRALINE 100 MG TABLET. PO SCH (08:20)
[2019-03-06] MEDS: MULTIVITAMIN with MINERAL TABLET. PO SCH (08:20)
[2019-03-06] MEDS: HALOPERIDOL 5 MG TABLET PO SCH ×2 (08:20→20:07)
[2019-03-06] MEDS: SIMETHICONE 80 MG TAB.CHEW PO SCH ×3 (08:20→20:08)
[2019-03-06] MEDS: CHOLECALCIFEROL (VITAMIN D3) 1,000 UNIT TABLET PO SCH (08:21)
--- NOTE | 2019-03-06 10:29 | NUR ---
Pt is calm, cooperative, compliant. No agitation, no aggression, no hallucinations, no delusions. He is compliant with his medications and assessment.
[2019-03-06] MEDS: NICOTINE 21MG PATCH. TD SCH (13:11)
[2019-03-06 15:53] VITALS: BP 115/88
[2019-03-06] MEDS: ATORVASTATIN CALCIUM 10 MG TABLET. PO SCH (20:07)
[2019-03-06] MEDS: traMADol 50 MG TABLET PO SCH (20:08)
--- NOTE | 2019-03-06 20:47 | PDOC ---
Exam Note: Rafael Note: Please also refer to the separate dictated note~for this date of service dictated separately.~Patient seen individually. Discussed the patient with Nursing staff reviewed the chart.~Reviewed interim history and current functioning. Reviewed vital signs,~Labs/ Radiology~and current medications noted below. Continue current treatment with the changes noted in the dictated addendum note Assessment: Vital Signs/I&O: Vital Signs Date Time Temp Pulse Resp B/P (MAP) Pulse Ox O2 Delivery O2 Flow Rate FiO2 03/06/19 15:53 96.9 113 16 115/88 (97) 96 03/05/19 22:30 Room Air I & O 03/05/19 03/05/19 03/06/19 14:59 22:59 06:59 Intake Total 480 ml 1320 ml Balance 480 ml 1320 ml Current Medications: Meds: Current Medications Medications (Trade) Dose Ordered Sig/Rober Route PRN Reason Start Time Stop Time Status Last Admin Dose Admin Divalproex Sodium (Depakote) 750 mg TID PO 03/06/19 09:00 03/06/19 20:08 Haloperidol (Haldol) 10 mg HS PO 03/06/19 21:00 03/06/19 20:07 I have reviewed the current psychotropics carefully including drug interactions. Risk benefit ratio favors no change other than as noted in my dictated progress note. Diagnosis: Problems: (1) Anxiety disorder (2) Impulse control disorder (3) Schizoaffective disorder, bipolar type (4) Schizoaffective disorder, chronic condition with acute exacerbation (5) Schizophrenia, paranoid, chronic with acute exacerbation LEONARD ASHFORD MD Mar 06, 2019 20:47
--- NOTE | 2019-03-06 22:03 | PN ---
DATE: PSYCHIATRIC PROGRESS NOTE This late entry 03/05/2019 covers the elements not covered in my initial note. SUBJECTIVE: I met with the patient in the evening. The patient slept 4 hours previous night. He has been somewhat delusional, grandiose, still believes he is the son of Edmond. Valproic acid level on 625 mg t.i.d. is subtherapeutic at 49. We will increase to 750 mg t.i.d. Check CBC, CMP, valproic acid, ammonia level in 3 days. REVIEW OF SYSTEMS: No CV, , pulmonary, eye system symptoms on review. Reliability varies. MENTAL STATUS EXAM: Reasonably oriented. Speech coherent, can be a little pressured at times. Abstraction fair, computation impaired, language function intact, attention span short. Mood and affect remain somewhat grandiose at times. LABORATORY DATA: Reviewed. IMPRESSION: Unchanged from initial note. PLAN: No change from initial note other than what is noted above and we may need to increase Haldol oral as well. MAN Amarilis ASHFORD MD DR: JULIAN/hemal JOB#: [id number] / [id number]
--- NOTE | 2019-03-06 22:21 | NUR ---
Pt sitting in day room socializing with peer at shift change. Pt hyper-verbal and attention seeking, frequently interrupting this nurse while speaking to another pt. Pt cooperative with assessment and compliant with medications administered whole.
[2019-03-07] MEDS: LEVOTHYROXINE 100 MCG TABLET PO SCH (05:44)
[2019-03-07] MEDS: ACETAMINOPHEN 325 MG TABLET PO PRN (05:45)
[2019-03-07 05:51] VITALS: BP 90/65
[2019-03-07] MEDS: BUDESONIDE 0.5 MG/2 ML NEBU NEB SCH ×2 (08:00→20:00)
[2019-03-07] MEDS: NICOTINE 21MG PATCH. TD SCH (08:47)
[2019-03-07] MEDS: CELECOXIB 100 MG CAPSULE PO SCH (08:47)
[2019-03-07] MEDS: DIVALPROEX SODIUM 250 MG TABLET.DR. PO SCH ×3 (08:48→19:54)
[2019-03-07] MEDS: SIMETHICONE 80 MG TAB.CHEW PO SCH ×3 (08:48→19:55)
[2019-03-07] MEDS: CHOLECALCIFEROL (VITAMIN D3) 1,000 UNIT TABLET PO SCH (08:49)
[2019-03-07] MEDS: ASPIRIN ENTERIC COATED 81 MG TABLET.DR. PO SCH (08:49)
[2019-03-07] MEDS: SERTRALINE 100 MG TABLET. PO SCH (08:49)
[2019-03-07] MEDS: PANTOPRAZOLE 40 MG TABLET. PO SCH (08:49)
[2019-03-07] MEDS: FUROSEMIDE 20 MG TABLET PO SCH (08:49)
[2019-03-07] MEDS: BENZTROPINE MESYLATE 0.5 MG TABLET PO SCH ×2 (08:49→19:54)
[2019-03-07] MEDS: DOCUSATE SODIUM 100 MG CAPSULE PO SCH ×2 (08:49→19:55)
[2019-03-07] MEDS: buPROPion XL 150 MG TAB.ER.24H PO SCH (08:49)
[2019-03-07] MEDS: HALOPERIDOL 5 MG TABLET PO SCH ×2 (08:49→19:54)
[2019-03-07] MEDS: MULTIVITAMIN with MINERAL TABLET. PO SCH (08:52)
--- NOTE | 2019-03-07 10:15 | NUR ---
Nursing Note Pt sitting in dining room, pleasant, attention seeking, hyper-verbal, and interactive with peers and staffs. Patient cooperative with assessment and compliant with medications taken whole. No aggression. No agitation. Denies pain.
--- NOTE | 2019-03-07 10:51 | NUR ---
SAMIRA received a call from SAMIRA Lopez at [facility] on [address], on 03/06/2019 regarding pt. possibly being a better fit for [facility]. SAMIRA spoke to pt. who does not wish to move at this time but will consider a possible move in the future. Pt. requested to speak to his brother, Raul. After contacting John, pt. is allowed to contact his brother, whose phone number is in pt. chart.
[2019-03-07 15:36] VITALS: BP 121/91
[2019-03-07] MEDS ORDERED: traZODone 100 MG TABLET. PO PRN (17:00)
[2019-03-07] MEDS: traMADol 50 MG TABLET PO SCH (19:55)
[2019-03-07] MEDS: ATORVASTATIN CALCIUM 10 MG TABLET. PO SCH (19:55)
--- NOTE | 2019-03-07 21:08 | PDOC ---
Exam Note: Rafael Note: Please also refer to the separate dictated note~for this date of service dictated separately.~Patient seen individually. Discussed the patient with Nursing staff reviewed the chart.~Reviewed interim history and current functioning. Reviewed vital signs,~Labs/ Radiology~and current medications noted below. Continue current treatment with the changes noted in the dictated addendum note Assessment: Vital Signs/I&O: Vital Signs Date Time Temp Pulse Resp B/P (MAP) Pulse Ox O2 Delivery O2 Flow Rate FiO2 03/07/19 19:55 99 03/07/19 15:36 96.9 75 16 121/91 (101) 03/05/19 22:30 Room Air I & O 03/06/19 03/06/19 03/07/19 15:00 23:00 07:00 Intake Total 480 ml 480 ml Balance 480 ml 480 ml Current Medications: Meds: Current Medications Medications (Trade) Dose Ordered Sig/Rober Route PRN Reason Start Time Stop Time Status Last Admin Dose Admin Haloperidol (Haldol) 5 mg DAILY PO 03/07/19 09:00 03/07/19 08:49 Trazodone HCl (Desyrel) 100 mg PRN QHS PRN PO INSOMNIA MRX 1 03/07/19 17:00 03/07/19 19:54 I have reviewed the current psychotropics carefully including drug interactions. Risk benefit ratio favors no change other than as noted in my dictated progress note. Diagnosis: Problems: (1) Anxiety disorder (2) Impulse control disorder (3) Schizoaffective disorder, bipolar type (4) Schizoaffective disorder, chronic condition with acute exacerbation (5) Schizophrenia, paranoid, chronic with acute exacerbation LEONARD ASHFORD MD Mar 07, 2019 21:08
--- NOTE | 2019-03-07 22:32 | PN ---
DATE: 03/06/2019 PSYCHIATRIC PROGRESS NOTE This late entry 03/06/2019 covers the elements not covered in my initial note. SUBJECTIVE: I met with the patient in the evening of 03/06/2019. Per HUNG Garcia, the patient slept 6-1/2 hours previous night. He is sexually inappropriate and nursing staff finding to be somewhat inappropriate in convoluted manner. He remains psychotic and believes he is godson. REVIEW OF SYSTEMS: No CV, , pulmonary, eye system symptoms on review. MENTAL STATUS EXAM: Reasonably oriented. Speech is coherent, can be little pressured at times. Abstraction fair, computation impaired, language function intact, and attention span short. Mood and affect remain somewhat grandiose. LABORATORY DATA: Reviewed. IMPRESSION: Schizoaffective disorder, bipolar type, mixed with psychotic features; anxiety disorder, unspecified; impulse control disorder, unspecified. PLAN: Depakote was increased from 625 mg t.i.d. to 750 mg 3 times a day. We will check CBC, CMP, valproic acid level, ammonia level in 3 days. Increase Haldol from 5 mg b.i.d. to 5 mg a.m. and 10 mg at bedtime. Maintain Zoloft 100 mg a day, Haldol Decanoate 100 mg q. 14 days, Wellbutrin-XL 300 mg a day, Cogentin 0.5 mg b.i.d. Rest unchanged for now. MAN Amarilis ASHFORD MD DR: JULIAN/hemal JOB#: [id number] / [id number]
--- NOTE | 2019-03-07 23:44 | NUR ---
Pt sitting in day room at shift change. Pt hyper-verbal and attention seeking but pleasant and interactive with staff. No delusions, agitation, or aggression noted thus far this evening. Pt cooperative with assessment and compliant with medications administered whole. PRN Trazodone administered at HS for sleep per pt request.
[2019-03-08] MEDS: ACETAMINOPHEN 325 MG TABLET PO PRN (05:51)
[2019-03-08] MEDS: LEVOTHYROXINE 100 MCG TABLET PO SCH (05:51)
[2019-03-08 06:02] VITALS: BP 103/69
--- NOTE | 2019-03-08 06:38 | NUR ---
During morning rounds, pt attempted to stand up from his bed when he became weak and was assisted to the floor by staff. Pt was not injured and reports that he just became weak when he stood up. VSS at this time, pt denies dizziness or lightheadedness. Pt does report chronic knee and back pain and PRN Tylenol administered.
[2019-03-08] MEDS: NICOTINE 21MG PATCH. TD SCH (08:00)
[2019-03-08] MEDS: DOCUSATE SODIUM 100 MG CAPSULE PO SCH ×2 (08:01→20:10)
[2019-03-08] MEDS: PANTOPRAZOLE 40 MG TABLET. PO SCH (08:01)
[2019-03-08] MEDS: buPROPion XL 150 MG TAB.ER.24H PO SCH (08:01)
[2019-03-08] MEDS: MULTIVITAMIN with MINERAL TABLET. PO SCH (08:01)
[2019-03-08] MEDS: HALOPERIDOL 5 MG TABLET PO SCH ×2 (08:01→20:10)
[2019-03-08] MEDS: FUROSEMIDE 20 MG TABLET PO SCH (08:01)
[2019-03-08] MEDS: SERTRALINE 100 MG TABLET. PO SCH (08:01)
[2019-03-08] MEDS: CHOLECALCIFEROL (VITAMIN D3) 1,000 UNIT TABLET PO SCH (08:01)
[2019-03-08] MEDS: BENZTROPINE MESYLATE 0.5 MG TABLET PO SCH ×2 (08:01→20:10)
[2019-03-08] MEDS: SIMETHICONE 80 MG TAB.CHEW PO SCH ×3 (08:01→20:11)
[2019-03-08] MEDS: CELECOXIB 100 MG CAPSULE PO SCH (08:01)
[2019-03-08] MEDS: ASPIRIN ENTERIC COATED 81 MG TABLET.DR. PO SCH (08:02)
[2019-03-08] MEDS: DIVALPROEX SODIUM 250 MG TABLET.DR. PO SCH ×3 (08:02→20:10)
--- NOTE | 2019-03-08 09:47 | NUR ---
Nursing Note Pt sitting in dining room, pleasant, attention seeking, hyper-verbal, and interactive with peers and staffs. Patient cooperative with assessment and compliant with medications taken whole. Pt is AOx4. Denies hallucinations. No aggression. No agitation.
[2019-03-08] MEDS: BUDESONIDE 0.5 MG/2 ML NEBU NEB SCH (13:23)
[2019-03-08 15:50] VITALS: BP 102/63
[2019-03-08] MEDS: ATORVASTATIN CALCIUM 10 MG TABLET. PO SCH (20:10)
[2019-03-08] MEDS: traMADol 50 MG TABLET PO SCH (20:12)
--- NOTE | 2019-03-08 20:38 | NUR ---
Pt sitting in day room at shift change. Pt calm, pleasant, and interactive. Pt reports being drowsy today. No delusions, agitation, or aggression noted thus far this evening. Pt cooperative with assessment and compliant with medications administered whole. Scheduled Tramadol administered as ordered for c/o back and BLE pain.
--- NOTE | 2019-03-08 20:57 | PDOC ---
Exam Note: Rafael Note: Please also refer to the separate dictated note~for this date of service dictated separately.~Patient seen individually. Discussed the patient with Nursing staff reviewed the chart.~Reviewed interim history and current functioning. Reviewed vital signs,~Labs/ Radiology~and current medications noted below. Continue current treatment with the changes noted in the dictated addendum note Assessment: Vital Signs/I&O: Vital Signs Date Time Temp Pulse Resp B/P (MAP) Pulse Ox O2 Delivery O2 Flow Rate FiO2 03/08/19 15:50 98.2 66 16 102/63 (76) 94 Room Air I & O 03/07/19 03/07/19 03/08/19 15:00 23:00 07:00 Intake Total 960 ml 480 ml 280 ml Balance 960 ml 480 ml 280 ml Current Medications: I have reviewed the current psychotropics carefully including drug interactions. Risk benefit ratio favors no change other than as noted in my dictated progress note. Diagnosis: Problems: (1) Anxiety disorder (2) Impulse control disorder (3) Schizoaffective disorder, bipolar type (4) Schizoaffective disorder, chronic condition with acute exacerbation (5) Schizophrenia, paranoid, chronic with acute exacerbation LEONARD ASHFORD MD Mar 08, 2019 20:57
[2019-03-09] MEDS: ACETAMINOPHEN 325 MG TABLET PO PRN (01:52)
[2019-03-09] MEDS: LEVOTHYROXINE 100 MCG TABLET PO SCH (05:39)
[2019-03-09 05:51] VITALS: BP 110/70
[2019-03-09 07:13] LABS: HEMATOCRIT 41.4 % (39.0-53.0); HEMOGLOBIN 14.1 g/dL (13.0-17.5); RED BLOOD COUNT 4.43 x10^6/uL (4.30-5.70); RED CELL DISTRIBUTION WIDTH 13.5 % (11.5-14.5); WHITE BLOOD COUNT 6.2 x10^3/uL (4.0-11.0)
[2019-03-09 07:28] LABS: ALBUMIN 3.3 g/dL (3.4-5.0); ALBUMIN/GLOBULIN RATIO 1.1 (1.0-1.7); ALK PHOS 86 U/L (46-116); ALT (SGPT) 27 U/L (16-63); ANION GAP 10 (6-14); AST (SGOT) 14 U/L (15-37); BLOOD UREA NITROGEN 17 mg/dL (8-26); BUN/CREATININE RATIO 19 (6-20); CALCIUM 9.1 mg/dL (8.5-10.1); CARBON DIOXIDE 25 mmol/L (21-32); CHLORIDE 104 mmol/L (98-107); CREATININE 0.9 mg/dL (0.7-1.3); GFR 86.7; GLUCOSE 84 mg/dL (70-99); POTASSIUM 4.6 mmol/L (3.5-5.1); SODIUM 139 mmol/L (136-145); TOTAL BILIRUBIN 0.3 mg/dL (0.2-1.0); TOTAL PROTEIN 6.3 g/dL (6.4-8.2)
[2019-03-09 07:30] LABS: VAL ACID 58 mcg/mL (50-100)
[2019-03-09] MEDS: SERTRALINE 100 MG TABLET. PO SCH (08:24)
[2019-03-09] MEDS: buPROPion XL 150 MG TAB.ER.24H PO SCH (08:24)
[2019-03-09] MEDS: CHOLECALCIFEROL (VITAMIN D3) 1,000 UNIT TABLET PO SCH (08:24)
[2019-03-09] MEDS: DOCUSATE SODIUM 100 MG CAPSULE PO SCH ×2 (08:24→19:53)
[2019-03-09] MEDS: DIVALPROEX SODIUM 250 MG TABLET.DR. PO SCH ×3 (08:25→19:54)
[2019-03-09] MEDS: BENZTROPINE MESYLATE 0.5 MG TABLET PO SCH ×2 (08:25→19:53)
[2019-03-09] MEDS: HALOPERIDOL 5 MG TABLET PO SCH ×2 (08:25→19:53)
[2019-03-09] MEDS: ASPIRIN ENTERIC COATED 81 MG TABLET.DR. PO SCH (08:25)
[2019-03-09] MEDS: SIMETHICONE 80 MG TAB.CHEW PO SCH ×3 (08:28→19:53)
[2019-03-09] MEDS: CELECOXIB 100 MG CAPSULE PO SCH (08:29)
[2019-03-09] MEDS: MULTIVITAMIN with MINERAL TABLET. PO SCH (08:29)
[2019-03-09] MEDS: PANTOPRAZOLE 40 MG TABLET. PO SCH (08:30)
[2019-03-09] MEDS: FUROSEMIDE 20 MG TABLET PO SCH (08:30)
[2019-03-09] MEDS: NICOTINE 21MG PATCH. TD SCH (08:30)
--- NOTE | 2019-03-09 09:20 | PN ---
DATE: 03/07/2019 PSYCHIATRIC PROGRESS NOTE This late entry 03/07/2019 covers elements not covered in my initial note. SUBJECTIVE: I met with the patient evening of 03/07/2019. Per HUNG Marquez, the patient slept 6 hours previous night. He remains somewhat hyperverbal, compliant, less paranoid. No CV, , pulmonary, eye, ENT system symptoms on review. MENTAL STATUS EXAM: Oriented to himself. Insight limited, judgment marginal, language function intact. Mood and affect still somewhat grandiose at times, believes he is the son of Edmond. He complains of not sleeping adequately at night and we will add trazodone 100 mg at bedtime p.r.n., june repeat x 1. REVIEW OF SYSTEMS: No CV, , pulmonary, eye system symptoms on review. Rest as above. IMPRESSION: Schizophrenia, chronic paranoid with acute exacerbation, in partial remission; schizoaffective disorder, bipolar type, mixed with psychotic features, in partial remission. Rest unchanged. PLAN: Continue current psychotropics. Haldol has been increased oral to 15 mg a day. Maintain Depakote, Haldol Decanoate and the rest including Zoloft. Adjust as clinically indicated. LEONARD ASHFORD MD DR: JULIAN/hemal JOB#: [id number] / [id number]
--- NOTE | 2019-03-09 09:54 | NUR ---
WEEKLY ACTIVITY THERAPY NOTE Date of Admission: 02/27/2019 Date of AT Assessment: 03/02/2019 Goal aimed: to increase engagement Initial goal: Pt. will participate in one individual session before discharge. Weekly progress towards goal: achieved in group 03/01 Group participation level: full in one group Weekly highlights: painted snowflakes with group on Wednesday Behaviors observed: usually always in room, during group: Pt. painted the entire session, chatted with both peers and staff; Pt. grandiose, speaking rapidly, difficulty following conversations; enjoys talking about music, specifically [employer] Do[employer] and the Rolling [employer]ones Plan: repeat goal Beneficial adaptations: encouragement
--- NOTE | 2019-03-09 10:33 | NUR ---
Nursing note: Pt in dining room for morning meds and assessment. Pt was compliant with his meds and cooperative with his assessment. Pt is calm and interactive with no delusions or agitation. Pt is currently laying in his bed. Will continue to monitor.
--- NOTE | 2019-03-09 11:59 | NUR ---
SAMIRA spoke to pt. regrading progress discussed during treatment team. Pt. shared he is now interested in placement at [facility]. SAMIRA will reach out to [facility] and send progress notes per pt. request. SAMIRA did explain to pt. he may need to return to the [facility] on [address] if he is not accept at [facility] at time of discharge. SAMIRA left ms. for SAMIRA Lopez at the [facility] on , to discuss pt. progress. Addendum: 03/13/19 at 1014 by KRISTY HOGAN SAMIRA spoke to SAMIRA Lopez at the [facility] on , regarding pt. progress, and pt. interest in a possible transfer to [facility].
[2019-03-09 15:35] VITALS: BP 110/77
[2019-03-09] MEDS: ATORVASTATIN CALCIUM 10 MG TABLET. PO SCH (19:53)
[2019-03-09] MEDS: traMADol 50 MG TABLET PO SCH (19:53)
--- NOTE | 2019-03-09 21:05 | PDOC ---
Exam Note: Rafael Note: Please also refer to the separate dictated note~for this date of service dictated separately.~Patient seen individually. Discussed the patient with Nursing staff reviewed the chart.~Reviewed interim history and current functioning. Reviewed vital signs,~Labs/ Radiology~and current medications noted below. Continue current treatment with the changes noted in the dictated addendum note Assessment: Vital Signs/I&O: Vital Signs Date Time Temp Pulse Resp B/P (MAP) Pulse Ox O2 Delivery O2 Flow Rate FiO2 03/09/19 20:53 16 100 03/09/19 15:35 97.7 68 110/77 (88) Room Air I & O 03/08/19 03/08/19 03/09/19 15:00 23:00 07:00 Intake Total 960 ml 480 ml Balance 960 ml 480 ml Labs: Laboratory Tests Test 03/09/19 07:02 White Blood Count 6.2 x10^3/uL (4.0-11.0) Red Blood Count 4.43 x10^6/uL (4.30-5.70) Hemoglobin 14.1 g/dL (13.0-17.5) Hematocrit 41.4 % (39.0-53.0) Mean Corpuscular Volume 94 fL (79-100) Mean Corpuscular Hemoglobin 32 pg (25-35) Mean Corpuscular Hemoglobin Concent 34 g/dL (31-37) Red Cell Distribution Width 13.5 % (11.5-14.5) Platelet Count 163 x10^3/uL (140-400) Sodium Level 139 mmol/L (136-145) Potassium Level 4.6 mmol/L (3.5-5.1) Chloride Level 104 mmol/L (98-107) Carbon Dioxide Level 25 mmol/L (21-32) Anion Gap 10 (6-14) Blood Urea Nitrogen 17 mg/dL (8-26) Creatinine 0.9 mg/dL (0.7-1.3) Estimated GFR (Cockcroft-Gault) 86.7 BUN/Creatinine Ratio 19 (6-20) Glucose Level 84 mg/dL (70-99) Calcium Level 9.1 mg/dL (8.5-10.1) Total Bilirubin 0.3 mg/dL (0.2-1.0) Aspartate Amino Transferase (AST) 14 U/L (15-37) L Alanine Aminotransferase (ALT) 27 U/L (16-63) Alkaline Phosphatase 86 U/L (46-116) Ammonia 90 mcmol/L (11-34) H Total Protein 6.3 g/dL (6.4-8.2) L Albumin 3.3 g/dL (3.4-5.0) L Albumin/Globulin Ratio 1.1 (1.0-1.7) Valproic Acid Level 58 mcg/mL (50-100) Valproic Acid Last Dose Date 03/06/19 Valproic Acid Last Dose Time 2100 Current Medications: I have reviewed the current psychotropics carefully including drug interactions. Risk benefit ratio favors no change other than as noted in my dictated progress note. Diagnosis: Problems: (1) Anxiety disorder (2) Impulse control disorder (3) Schizoaffective disorder, bipolar type (4) Schizoaffective disorder, chronic condition with acute exacerbation (5) Schizophrenia, paranoid, chronic with acute exacerbation LEONARD ASHFORD MD Mar 09, 2019 21:05
--- NOTE | 2019-03-09 22:07 | NUR ---
Patient is located in day room at time of medication administration and assessment. Patient is calm and compliant with medications whole. Patient is interactive with peers and staff. Patient is appropriate with this nurse. Depakote D/C'd per Dr. Burgos order due to patients increased Ammonia level. Patient is resting in bed at this time. Will continue to monitor.
[2019-03-10] MEDS: LEVOTHYROXINE 100 MCG TABLET PO SCH (05:34)
[2019-03-10 05:57] VITALS: BP 95/66
[2019-03-10] MEDS: buPROPion XL 150 MG TAB.ER.24H PO SCH (08:36)
[2019-03-10] MEDS: ASPIRIN ENTERIC COATED 81 MG TABLET.DR. PO SCH (08:36)
[2019-03-10] MEDS: CELECOXIB 100 MG CAPSULE PO SCH (08:36)
[2019-03-10] MEDS: PANTOPRAZOLE 40 MG TABLET. PO SCH (08:36)
[2019-03-10] MEDS: HALOPERIDOL 5 MG TABLET PO SCH ×2 (08:37→20:13)
[2019-03-10] MEDS: SIMETHICONE 80 MG TAB.CHEW PO SCH ×3 (08:37→20:13)
[2019-03-10] MEDS: SERTRALINE 100 MG TABLET. PO SCH (08:37)
[2019-03-10] MEDS: CHOLECALCIFEROL (VITAMIN D3) 1,000 UNIT TABLET PO SCH (08:37)
[2019-03-10] MEDS: FUROSEMIDE 20 MG TABLET PO SCH (08:38)
[2019-03-10] MEDS: DOCUSATE SODIUM 100 MG CAPSULE PO SCH ×2 (08:38→20:10)
[2019-03-10] MEDS: NICOTINE 21MG PATCH. TD SCH (08:38)
[2019-03-10] MEDS: MULTIVITAMIN with MINERAL TABLET. PO SCH (08:38)
[2019-03-10] MEDS: BENZTROPINE MESYLATE 0.5 MG TABLET PO SCH ×2 (08:38→20:10)
[2019-03-10 15:45] VITALS: BP 128/76
--- NOTE | 2019-03-10 18:23 | NUR ---
Pt up adl to room. Out to day room for groups when encouraged. Has been compliant with meds and cares.
[2019-03-10] MEDS: traMADol 50 MG TABLET PO SCH (20:12)
[2019-03-10] MEDS: ATORVASTATIN CALCIUM 10 MG TABLET. PO SCH (20:13)
--- NOTE | 2019-03-10 21:06 | PDOC ---
Exam Note: Rafael Note: Please also refer to the separate dictated note~for this date of service dictated separately.~Patient seen individually. Discussed the patient with Nursing staff reviewed the chart.~Reviewed interim history and current functioning. Reviewed vital signs,~Labs/ Radiology~and current medications noted below. Continue current treatment with the changes noted in the dictated addendum note Assessment: Vital Signs/I&O: Vital Signs Date Time Temp Pulse Resp B/P (MAP) Pulse Ox O2 Delivery O2 Flow Rate FiO2 03/10/19 20:12 16 100 Room Air 03/10/19 15:45 98.6 63 128/76 (93) I & O 03/09/19 03/09/19 03/10/19 15:00 23:00 07:00 Intake Total 960 ml 600 ml Balance 960 ml 600 ml Current Medications: I have reviewed the current psychotropics carefully including drug interactions. Risk benefit ratio favors no change other than as noted in my dictated progress note. Diagnosis: Problems: (1) Anxiety disorder (2) Impulse control disorder (3) Schizoaffective disorder, bipolar type (4) Schizoaffective disorder, chronic condition with acute exacerbation (5) Schizophrenia, paranoid, chronic with acute exacerbation LEONARD ASHFORD MD Mar 10, 2019 21:06
[2019-03-10] MEDS: ACETAMINOPHEN 325 MG TABLET PO PRN (22:37)
--- NOTE | 2019-03-10 23:15 | PN ---
DATE: PSYCHIATRIC PROGRESS NOTE This late entry 03/09/2019 covers the elements not covered in my initial note. SUBJECTIVE: I met with the patient in the evening of 03/09/2019 and staffed at a treatment team meeting with the entire team in the morning. The patient slept 6 hours previous night. Appetite is 75%, calm, compliant, interactive. He was over sedated on 100 mg trazodone at bedtime. We will reduce this to half the dosage p.r.n. Valproic acid level is 58, AST 14, ALT 27. REVIEW OF SYSTEMS: No CV, , pulmonary, eye system symptoms on review. MENTAL STATUS EXAM: Reasonably oriented. Speech is coherent, has some latency. Abstraction fair, computation impaired, language function intact. Remains a little paranoid at times, grandiose, but has not voiced that he is the son of Edmond in the last day or two. LABORATORY DATA: Reviewed. IMPRESSION: Schizoaffective disorder, bipolar type, mixed with psychotic features, in partial remission. Rest unchanged. PLAN: Initially, I had considered continuing Depakote at current dosage. Then, the ammonia level was received back around 10:00 p.m. and I was called on this. Ammonia is 60 and we will go ahead and stop the Depakote, especially since he has had some sedation, which partly could be attributed to the elevated ammonia. We will have to find an alternate mood stabilizer or just work with the antipsychotics as best as we can. Rest unchanged from initial note including oral Haldol and Haldol Decanoate. MAN Amarilis ASHFORD MD DR: JULIAN/hemal JOB#: [id number] / [id number]
[2019-03-10] MEDS: traZODone 50 MG TABLET. PO PRN (23:58)
--- NOTE | 2019-03-11 00:11 | NUR ---
Pt c/o back pain-tx with medication. Pt pleasant, calm, compliant, wandering and talkative. Sleep medication and snack given after c/o insomnia. Will continue to monitor.
--- NOTE | 2019-03-11 03:16 | PN ---
DATE: 03/08/2019 PSYCHIATRIC PROGRESS NOTE This late entry 03/08/2019 covers elements not covered in my initial note. SUBJECTIVE: I met with the patient evening of 03/08/2019. Per report from HUNG Marquez, the patient slept 8 hours previous night. He was in his room all day sleeping quite sedated after the trazodone he received previous night and we will stop it for now. Breathing treatments have been discontinued since he was refusing them anyway. REVIEW OF SYSTEMS: Positive for some tiredness. No CV, , pulmonary, eye system symptoms on review. MENTAL STATUS EXAMINATION: Reasonably oriented. Speech is coherent, little pressured at times. Abstraction fair, computation impaired, language function intact. Mood and affect still somewhat grandiose, but less so than before. LABORATORY DATA: Reviewed. IMPRESSION: Schizoaffective disorder, bipolar type, mixed with psychotic features; anxiety disorder, unspecified. Rest unchanged. PLAN: Continue psychotropics from initial note. Stop the trazodone. May use a lower dosage after a night or two if insomnia persists. Rest unchanged. He remains on Haldol Decanoate every 2 weeks and oral Haldol was increased. Continue the Cogentin, Wellbutrin. He is on Depo-Provera for now. LEONARD ASHFORD MD DR: JULIAN/hemal JOB#: [id number] / [id number]
[2019-03-11 05:20] VITALS: BP 119/81
[2019-03-11] MEDS: LEVOTHYROXINE 100 MCG TABLET PO SCH (06:00)
[2019-03-11] MEDS: FUROSEMIDE 20 MG TABLET PO SCH (08:22)
[2019-03-11] MEDS: MULTIVITAMIN with MINERAL TABLET. PO SCH (08:22)
[2019-03-11] MEDS: CELECOXIB 100 MG CAPSULE PO SCH (08:22)
[2019-03-11] MEDS: buPROPion XL 150 MG TAB.ER.24H PO SCH (08:22)
[2019-03-11] MEDS: DOCUSATE SODIUM 100 MG CAPSULE PO SCH ×2 (08:22→20:40)
[2019-03-11] MEDS: HALOPERIDOL 5 MG TABLET PO SCH ×2 (08:22→20:40)
[2019-03-11] MEDS: ASPIRIN ENTERIC COATED 81 MG TABLET.DR. PO SCH (08:22)
[2019-03-11] MEDS: BENZTROPINE MESYLATE 0.5 MG TABLET PO SCH ×2 (08:23→20:40)
[2019-03-11] MEDS: PANTOPRAZOLE 40 MG TABLET. PO SCH (08:23)
[2019-03-11] MEDS: NICOTINE 21MG PATCH. TD SCH (08:23)
[2019-03-11] MEDS: SIMETHICONE 80 MG TAB.CHEW PO SCH ×3 (08:23→20:40)
[2019-03-11] MEDS: CHOLECALCIFEROL (VITAMIN D3) 1,000 UNIT TABLET PO SCH (08:23)
[2019-03-11] MEDS: SERTRALINE 100 MG TABLET. PO SCH (08:23)
[2019-03-11] MEDS: ACETAMINOPHEN 325 MG TABLET PO PRN (14:07)
[2019-03-11 16:06] VITALS: BP 130/88
--- NOTE | 2019-03-11 16:51 | NUR ---
Pt up for meals. Has been in pleasant spirits. C/o feet pain after lunch relived with Tylenol. Compliant with meds and cares.
[2019-03-11] MEDS: ATORVASTATIN CALCIUM 10 MG TABLET. PO SCH (20:40)
[2019-03-11] MEDS: traMADol 50 MG TABLET PO SCH (20:40)
--- NOTE | 2019-03-11 21:43 | PDOC ---
Exam Note: Rafael Note: Please also refer to the separate dictated note~for this date of service dictated separately.~Patient seen individually. Discussed the patient with Nursing staff reviewed the chart.~Reviewed interim history and current functioning. Reviewed vital signs,~Labs/ Radiology~and current medications noted below. Continue current treatment with the changes noted in the dictated addendum note Assessment: Vital Signs/I&O: Vital Signs Date Time Temp Pulse Resp B/P (MAP) Pulse Ox O2 Delivery O2 Flow Rate FiO2 03/11/19 20:40 16 98 03/11/19 16:06 97.9 75 130/88 (102) 03/10/19 20:12 Room Air I & O 03/10/19 03/10/19 03/11/19 15:00 23:00 07:00 Intake Total 840 ml 840 ml Balance 840 ml 840 ml Labs: Laboratory Tests Test 03/11/19 08:00 Ammonia 31 mcmol/L (11-34) Current Medications: I have reviewed the current psychotropics carefully including drug interactions. Risk benefit ratio favors no change other than as noted in my dictated progress note. Diagnosis: Problems: (1) Anxiety disorder (2) Impulse control disorder (3) Schizoaffective disorder, bipolar type (4) Schizoaffective disorder, chronic condition with acute exacerbation (5) Schizophrenia, paranoid, chronic with acute exacerbation LEONARD ASHFORD MD Mar 11, 2019 21:43
[2019-03-11] MEDS: traZODone 50 MG TABLET. PO PRN (22:49)
--- NOTE | 2019-03-12 05:12 | NUR ---
Nsg Note: Patient was in eng at time of medication administration and assessments. Patient was calm, cooperative and compliant. Somewhat confused stating he had had several x-rays and pending results, this was not true. Patient later was asking for something to help him sleep because his chest hurt when he would cough hard. Assessments completed at this time, WNL. Will endorse to keep an eye out. Patient slept the rest of the evening after this interaction. No other notable behaviors.
[2019-03-12] MEDS: LEVOTHYROXINE 100 MCG TABLET PO SCH (05:19)
[2019-03-12 06:47] VITALS: BP 96/65
[2019-03-12] MEDS: NICOTINE 21MG PATCH. TD SCH (08:21)
[2019-03-12] MEDS: buPROPion XL 150 MG TAB.ER.24H PO SCH (08:21)
[2019-03-12] MEDS: SERTRALINE 100 MG TABLET. PO SCH (08:23)
[2019-03-12] MEDS: ASPIRIN ENTERIC COATED 81 MG TABLET.DR. PO SCH (08:23)
[2019-03-12] MEDS: DOCUSATE SODIUM 100 MG CAPSULE PO SCH ×2 (08:23→20:37)
[2019-03-12] MEDS: CHOLECALCIFEROL (VITAMIN D3) 1,000 UNIT TABLET PO SCH (08:23)
[2019-03-12] MEDS: PANTOPRAZOLE 40 MG TABLET. PO SCH (08:23)
[2019-03-12] MEDS: CELECOXIB 100 MG CAPSULE PO SCH (08:23)
[2019-03-12] MEDS: MULTIVITAMIN with MINERAL TABLET. PO SCH (08:23)
[2019-03-12] MEDS: BENZTROPINE MESYLATE 0.5 MG TABLET PO SCH ×2 (08:23→20:37)
[2019-03-12] MEDS: HALOPERIDOL 5 MG TABLET PO SCH ×2 (08:23→20:37)
[2019-03-12] MEDS: SIMETHICONE 80 MG TAB.CHEW PO SCH ×3 (08:24→20:37)
[2019-03-12] MEDS: FUROSEMIDE 20 MG TABLET PO SCH (08:24)
--- NOTE | 2019-03-12 14:07 | NUR ---
Pt up for meals. Has voiced no delusions. Has been compliant with meds and cares.
[2019-03-12 15:49] VITALS: BP 157/89
[2019-03-12] MEDS: traZODone 50 MG TABLET. PO PRN (20:36)
[2019-03-12] MEDS: traMADol 50 MG TABLET PO SCH (20:36)
[2019-03-12] MEDS: ATORVASTATIN CALCIUM 10 MG TABLET. PO SCH (20:37)
--- NOTE | 2019-03-12 20:52 | PDOC ---
Exam Note: Rafael Note: Please also refer to the separate dictated note~for this date of service dictated separately.~Patient seen individually. Discussed the patient with Nursing staff reviewed the chart.~Reviewed interim history and current functioning. Reviewed vital signs,~Labs/ Radiology~and current medications noted below. Continue current treatment with the changes noted in the dictated addendum note Assessment: Vital Signs/I&O: Vital Signs Date Time Temp Pulse Resp B/P (MAP) Pulse Ox O2 Delivery O2 Flow Rate FiO2 03/12/19 20:36 18 98 Room Air 03/12/19 15:49 97.8 61 157/89 (111) I & O 03/11/19 03/11/19 03/12/19 15:00 23:00 07:00 Intake Total 960 ml 480 ml 240 ml Balance 960 ml 480 ml 240 ml Current Medications: I have reviewed the current psychotropics carefully including drug interactions. Risk benefit ratio favors no change other than as noted in my dictated progress note. Diagnosis: Problems: (1) Anxiety disorder (2) Impulse control disorder (3) Schizoaffective disorder, bipolar type (4) Schizoaffective disorder, chronic condition with acute exacerbation (5) Schizophrenia, paranoid, chronic with acute exacerbation LEONARD ASHFORD MD Mar 12, 2019 20:52
--- NOTE | 2019-03-12 21:41 | NUR ---
pt was in his room for med pass and assessment. pt was given trazodone to help him sleep this evening per request of the pt. pt was calm,cooperative and compliant. pt does have a cough but lung sounds are clear. will continue to monitor.
--- NOTE | 2019-03-13 01:39 | PN ---
DATE: 03/10/2019 PSYCHIATRIC PROGRESS NOTE This late entry 03/10 covers elements not covered in my initial note. SUBJECTIVE: I met with the patient on evening of 03/10. Per HUNG Jo, the patient slept 7-1/4 hours previous night. We stopped his Depakote since ammonia level was 90 and I was paged as an emergency by the nursing staff. He has been coming out for meals. REVIEW OF SYSTEMS: No CV, , pulmonary, eye system symptoms on review. MENTAL STATUS EXAM: Oriented reasonably. Speech is coherent. Abstraction fair. Computation impaired. Language function intact. Attention span short. He is less grandiose and less manic. LABORATORY DATA: Reviewed. IMPRESSION: Schizoaffective disorder, bipolar type, mixed with psychotic features. Rest unchanged. PLAN: Continue psychotropics from initial note. Stop the Depakote. Maintain Haldol Decanoate. Rest unchanged for now. MAN Amarilis SAHFORD MD DR: JULIAN/hemal JOB#: [id number] / [id number]
[2019-03-13 01:50] VITALS: BP 102/70
--- NOTE | 2019-03-13 04:09 | NUR ---
pt has struggled to sleep all night. pt had requested a sleeping pill to help him sleep. i informed him that he got his sleeping pill during evening med pass. pt has been awake for most of the night. getting out of bed with asked to stay in bed. getting out of bed with bed alarms on. pt is currently in day room sitting with the aids.
--- NOTE | 2019-03-13 04:23 | PN ---
DATE: 03/11/2019 This late entry, 03/11, covers elements not covered in my initial note. SUBJECTIVE: I met with the patient in evening of 03/11. Per nursing report, the patient slept 5 hours previous night. He has been less psychotic, less manic, not talking about himself as being the son of God. Repeat ammonia level is 31. Depakote has since been discontinued and we will repeat it again morning of 03/12. REVIEW OF SYSTEMS: No CV, , pulmonary, eye system symptoms on review. Complains of some pain in his ankle. We will defer to Dr. Hall. MENTAL STATUS EXAM: Reasonably oriented. Speech has some latency, coherent. Abstraction fair, computation impaired, language function intact, attention span short. Mood and affect, lability is improved. No suicidal or homicidal ideation. LABORATORY DATA: Reviewed. IMPRESSION: Unchanged from initial note. PLAN: No change from initial note. MAN Amarilis ASHFORD MD DR: JULIAN/hemal JOB#: [id number] / [id number]
[2019-03-13 05:58] VITALS: BP 100/67
[2019-03-13] MEDS: LEVOTHYROXINE 100 MCG TABLET PO SCH (05:59)
[2019-03-13] MEDS: PANTOPRAZOLE 40 MG TABLET. PO SCH (08:51)
[2019-03-13] MEDS: ASPIRIN ENTERIC COATED 81 MG TABLET.DR. PO SCH (08:51)
[2019-03-13] MEDS: ACETAMINOPHEN 325 MG TABLET PO PRN (08:51)
[2019-03-13] MEDS: SERTRALINE 100 MG TABLET. PO SCH (08:51)
[2019-03-13] MEDS: HALOPERIDOL 5 MG TABLET PO SCH ×2 (08:52→21:03)
[2019-03-13] MEDS: SIMETHICONE 80 MG TAB.CHEW PO SCH ×3 (08:52→21:03)
[2019-03-13] MEDS: MULTIVITAMIN with MINERAL TABLET. PO SCH (08:52)
[2019-03-13] MEDS: CELECOXIB 100 MG CAPSULE PO SCH (08:53)
[2019-03-13] MEDS: DOCUSATE SODIUM 100 MG CAPSULE PO SCH ×2 (08:53→21:03)
[2019-03-13] MEDS: buPROPion XL 150 MG TAB.ER.24H PO SCH (08:53)
[2019-03-13] MEDS: BENZTROPINE MESYLATE 0.5 MG TABLET PO SCH ×2 (08:54→21:03)
[2019-03-13] MEDS: CHOLECALCIFEROL (VITAMIN D3) 1,000 UNIT TABLET PO SCH (08:54)
[2019-03-13] MEDS: FUROSEMIDE 20 MG TABLET PO SCH (08:54)
[2019-03-13] MEDS: NICOTINE 21MG PATCH. TD SCH (08:55)
--- NOTE | 2019-03-13 10:26 | NUR ---
Nursing note: Pt in his room for morning meds and assessment. He was compliant with his meds whole and cooperative with his assessment. He c/o being tired since he did not sleep well last night and he had pain 7/10 in his lower back. PRN tylenol was given with his morning meds. Pt is currently sleeping in his room. Will continue to monitor.
--- NOTE | 2019-03-13 11:52 | HP ---
ADMIT DATE: 02/27/2019 PSYCHIATRIC ADMISSION HISTORY AND EVALUATION IDENTIFYING DATA: Briefly, the patient is a 58-year-old male, referred to us from the [address] by his primary care physician on account of an acute exacerbation of his schizophrenia, chronic paranoid type. The patient has been having polydipsia, drinking excessively, increasingly aggressive towards staff and other residents. He believes he is God and will do what he wants, according to information from nursing staff. He has not had a bath or a shower for 3 weeks. Behaviors have been unmanageable despite adjustments in his psychotropics and he is referred for inpatient psychiatric stabilization. CHIEF COMPLAINT: "I don't do those things." HISTORY OF PRESENT ILLNESS: The patient has a history of schizophrenia, chronic paranoid type. He has been residing at the above facility for some time, but recently getting more agitated, aggressive, disruptive and paranoid. He has had sleep and appetite changes. No active suicidal or homicidal ideation. He does have a history of mood swings. No clear history of bipolar disorder. PAST PSYCHIATRIC HISTORY: As above. 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 ACCU-CHEKS: None. DIET: Regular. CURRENT PSYCHOTROPICS: Cogentin 0.5 mg b.i.d., Wellbutrin XL 150 mg a day, Celebrex 200 mg daily, Depakote DR 500 mg 3 times a day, Depo-Provera 150 mg q. 3 months; Haldol Decanoate 100 mg q. 14 days, last given on 02/10/2019, he refused it on 02/24/2019; Haldol oral 5 mg daily, Zoloft 100 mg a day. UA on 02/27/2019 was negative. Ambulates independently. CODE STATUS: DNR. ALLERGIES: Negative. FAMILY HISTORY: Noncontributory. SOCIAL HISTORY: Past history of alcohol and polysubstance abuse. The patient is not very forthcoming of it. No physical, sexual or elder abuse history is noted. Not known to be a perpetrator. REACTION TO HOSPITALIZATION: The patient accepting of it. ASSETS: Supportive living at the facility. MENTAL STATUS EXAMINATION: The patient was seen individually in the evening in his room shortly after he arrived on the unit in the evening of 02/27/2019. He sports a long hernandez, quite poor in his hygiene since he has not had a bath for several weeks. Oriented to himself and situation. Speech has some latency, often responses monosyllabic. Abstraction fair. Computation impaired. Language function intact. Attention span short. Mood and affect withdrawn, paranoid, suspicious. No active suicidal or homicidal ideation. LABORATORY DATA: Reviewed. IMPRESSION: Schizophrenia, chronic paranoid with acute exacerbation versus schizoaffective disorder, bipolar type, mixed with psychotic features with acute exacerbation; anxiety disorder, unspecified; impulse control disorder, unspecified; past history of polysubstance abuse. Rest as above. PLAN: Admit to Geropsychiatry Unit at [facility] [place]. I will see the patient daily individually from a psychiatric standpoint. Medical followup with Dr. aHll. Continue the patient on his current psychotropics. Observe baseline. Get a valproic acid level, adjust to reach therapeutic level. Encouraged compliance with Haldol Decanoate. Consider Clozaril, though it seems the long-acting antipsychotic would be the preferable way to go. We will make further decisions post baseline assessment. ESTIMATED LENGTH OF STAY: 10-12 days. DISPOSITION: Plans back to shelter when stable. MAN Amarilis ASHFORD MD DR: JULIAN/nts JOB#: [id number] / [id number]
--- NOTE | 2019-03-13 12:26 | NUR ---
SAMIRA spoke to Latoya, Admissions at [facility], regarding placement. Latoya reports at this time they do not have male beds available but to send a packet and if pt. is a good fit, they would put him on their waiting list. SAMIRA contact SAMIRA Lopez at [facility] on [address], to let know pt. would need to return to them at the end of the week but that this SW would fax a pt. packet to Latoya for review. SAMIRA spoke to pt. regarding the above information.
[2019-03-13 15:51] VITALS: BP 97/66
[2019-03-13 17:07] LABS: BASO % 0 % (0-3); EOS % 0 % (0-3); HEMATOCRIT 40.9 % (39.0-53.0); HEMOGLOBIN 13.9 g/dL (13.0-17.5); LYMPH % 7 % (24-48); MEAN CORPUSCULAR HEMOGLOBIN 32 pg (25-35); MEAN CORPUSCULAR HGB CONC 34 g/dL (31-37); MEAN CORPUSCULAR VOLUME 93 fL (79-100); MONO # 1.2 x10^3/uL (0.0-1.1); MONO % 8 % (0-9); NEUT % 84 % (31-73); PLATELET COUNT 159 x10^3/uL (140-400); RED CELL DISTRIBUTION WIDTH 13.6 % (11.5-14.5); WHITE BLOOD COUNT 14.3 x10^3/uL (4.0-11.0)
[2019-03-13 17:17] LABS: ALBUMIN 3.5 g/dL (3.4-5.0); ALBUMIN/GLOBULIN RATIO 1.1 (1.0-1.7); CREATININE 1.1 mg/dL (0.7-1.3); GFR 68.8; POTASSIUM 4.6 mmol/L (3.5-5.1); TOTAL BILIRUBIN 0.3 mg/dL (0.2-1.0); TOTAL PROTEIN 6.7 g/dL (6.4-8.2)
--- NOTE | 2019-03-13 18:00 | NUR ---
Dr. Hall here for rounds and informed of pts labs and vs. New orders for lactic acid, 1000cc NS bolus, CXR, and UA. Call with any abnormal results or change in pt condition.
[2019-03-13] MEDS ORDERED: IV NORMAL SALINE 1,000ML 1,000 ML IV ONE (18:15)
--- NOTE | 2019-03-13 18:46 | NUR ---
Pt reports having difficulty urinating. Pt bladder scanned. bladder scanned showed over 1000cc of retained urine. Pt straight cathed per protocol.
--- NOTE | 2019-03-13 19:15 | NUR ---
1,050cc urine drained from pts bladder per straight cath protocol. Dr. Rafael ashby
--- NOTE | 2019-03-13 19:20 | NUR ---
New order from Dr. Hall to leave rod in place.
[2019-03-13 20:13] LABS: BACTERIA,URINE 0 /HPF (0-FEW); BILIRUBIN,URINE NEG (NEG); CLARITY,URINE CLEAR; COLOR,URINE YELLOW; GLUCOSE,URINE NEG (NEG); NITRITE,URINE NEG (NEG); RBC,URINE 0 /HPF (0-2); UROBILINOGEN,URINE 0.2 mg/dL (0.2 mg/dL); WBC,URINE OCC /HPF (0-4)
[2019-03-13 20:14] LABS: SQUAMOUS EPITHELIAL CELL,UR OCC /LPF
[2019-03-13] MEDS: traMADol 50 MG TABLET PO SCH (21:03)
[2019-03-13] MEDS: MIRTAZAPINE 7.5 MG TABLET. PO SCH (21:03)
[2019-03-13] MEDS: ATORVASTATIN CALCIUM 10 MG TABLET. PO SCH (21:03)
--- NOTE | 2019-03-13 21:12 | PDOC ---
Exam Note: Rafael Note: Please also refer to the separate dictated note~for this date of service dictated separately.~Patient seen individually. Discussed the patient with Nursing staff reviewed the chart.~Reviewed interim history and current functioning. Reviewed vital signs,~Labs/ Radiology~and current medications noted below. Continue current treatment with the changes noted in the dictated addendum note Assessment: Vital Signs/I&O: Vital Signs Date Time Temp Pulse Resp B/P (MAP) Pulse Ox O2 Delivery O2 Flow Rate FiO2 03/13/19 21:03 93 Room Air 03/13/19 15:51 97.3 73 18 97/66 (76) I & O 03/12/19 03/12/19 03/13/19 15:00 23:00 07:00 Intake Total 1080 ml 600 ml Balance 1080 ml 600 ml Labs: Laboratory Tests Test 03/13/19 06:27 03/13/19 16:56 03/13/19 18:30 03/13/19 18:51 Ammonia < 10 mcmol/L (11-34) L White Blood Count 14.3 x10^3/uL (4.0-11.0) H Red Blood Count 4.40 x10^6/uL (4.30-5.70) Hemoglobin 13.9 g/dL (13.0-17.5) Hematocrit 40.9 % (39.0-53.0) Mean Corpuscular Volume 93 fL (79-100) Mean Corpuscular Hemoglobin 32 pg (25-35) Mean Corpuscular Hemoglobin Concent 34 g/dL (31-37) Red Cell Distribution Width 13.6 % (11.5-14.5) Platelet Count 159 x10^3/uL (140-400) Neutrophils (%) (Auto) 84 % (31-73) H Lymphocytes (%) (Auto) 7 % (24-48) L Monocytes (%) (Auto) 8 % (0-9) Eosinophils (%) (Auto) 0 % (0-3) Basophils (%) (Auto) 0 % (0-3) Neutrophils # (Auto) 12.0 x10^3uL (1.8-7.7) H Lymphocytes # (Auto) 1.0 x10^3/uL (1.0-4.8) Monocytes # (Auto) 1.2 x10^3/uL (0.0-1.1) H Eosinophils # (Auto) 0.0 x10^3/uL (0.0-0.7) Basophils # (Auto) 0.0 x10^3/uL (0.0-0.2) Sodium Level 135 mmol/L (136-145) L Potassium Level 4.6 mmol/L (3.5-5.1) Chloride Level 102 mmol/L (98-107) Carbon Dioxide Level 23 mmol/L (21-32) Anion Gap 10 (6-14) Blood Urea Nitrogen 24 mg/dL (8-26) Creatinine 1.1 mg/dL (0.7-1.3) Estimated GFR (Cockcroft-Gault) 68.8 BUN/Creatinine Ratio 22 (6-20) H Glucose Level 93 mg/dL (70-99) Calcium Level 9.0 mg/dL (8.5-10.1) Total Bilirubin 0.3 mg/dL (0.2-1.0) Aspartate Amino Transferase (AST) 19 U/L (15-37) Alanine Aminotransferase (ALT) 36 U/L (16-63) Alkaline Phosphatase 97 U/L (46-116) Total Protein 6.7 g/dL (6.4-8.2) Albumin 3.5 g/dL (3.4-5.0) Albumin/Globulin Ratio 1.1 (1.0-1.7) Urine Collection Type Unknown Urine Color Yellow Urine Clarity Clear Urine pH 7.0 Urine Specific [place] 1.010 Urine Protein Neg (NEG-TRACE) Urine Glucose (UA) Neg mg/dL (NEG) Urine Ketones (Stick) Neg mg/dL (NEG) Urine Blood Neg (NEG) Urine Nitrite Neg (NEG) Urine Bilirubin Neg (NEG) Urine Urobilinogen Dipstick 0.2 mg/dL (0.2 mg/dL) Urine Leukocyte Esterase Neg (NEG) Urine RBC 0 /HPF (0-2) Urine WBC Occ /HPF (0-4) Urine Squamous Epithelial Cells Occ /LPF Urine Bacteria 0 /HPF (0-FEW) Lactic Acid Level 1.6 mmol/L (0.4-2.0) Current Medications: Meds: Current Medications Medications (Trade) Dose Ordered Sig/Rober Route PRN Reason Start Time Stop Time Status Last Admin Dose Admin Mirtazapine (Remeron) 7.5 mg QHS PO 03/13/19 21:00 03/13/19 21:03 Sodium Chloride 1,000 ml @ 1,000 mls/hr 1X ONCE IV 03/13/19 18:15 03/13/19 19:14 DC 03/13/19 18:15 I have reviewed the current psychotropics carefully including drug interactions. Risk benefit ratio favors no change other than as noted in my dictated progress note. Diagnosis: Problems: (1) Anxiety disorder (2) Impulse control disorder (3) Schizoaffective disorder, bipolar type (4) Schizoaffective disorder, chronic condition with acute exacerbation (5) Schizophrenia, paranoid, chronic with acute exacerbation LEONARD ASHFORD MD Mar 13, 2019 21:12
--- NOTE | 2019-03-13 22:21 | RAD ---
Study: CHEST AP ONLY Indication: Cough. Weakness. Comparison: None. Findings: The heart is within the broad range of normal for size however the central vascular structures are plethoric and there are increased interstitial markings raising the question of interstitial edema. No layering effusion. No pneumothorax. No localized consolidation. Impression: Plethoric central vascular structures and increased interstitial markings raising the question of pulmonary edema. No layering effusion. No localized infiltrate to suggest an organizing pneumonia. Consider follow-up radiographs to document improvement. Electronically signed by: RICHA CARBALLO MD (03/13/2019 10:18 PM) [id number]
--- NOTE | 2019-03-13 23:59 | NUR ---
Nsg Note: Patient was in room at time of medication administration and assessments. Patient was calm, cooperative and compliant with all cares. Fluids were running for 1L bolus, RN shut off and assessed once completed. Patient now has rod as well as labs ordered. See previous notes from day shift for more details. Pending results. No other notable behaviors at this time.
--- NOTE | 2019-03-14 02:59 | PN ---
DATE: 03/12/2019 PSYCHIATRIC PROGRESS NOTE This late entry 03/12/2019 covers elements not covered in my initial note. SUBJECTIVE: I met with the patient evening of 03/12/2019. The patient slept 6-3/4 hours previous night. He remains pleasant, cooperative, not psychotic. We will check ammonia level in the morning of 03/13/2019. Discussed with Barbara PERSAUD. REVIEW OF SYSTEMS: No CV, , pulmonary, eye system symptoms on review. MENTAL STATUS EXAM: Reasonably oriented. Speech coherent, a little pressured. Abstraction fair, computation impaired, language function intact, attention span short. Mood and affect, intermittently labile. LABORATORY DATA: Reviewed. IMPRESSION: Unchanged from initial note. PLAN: No change from initial note. MAN Amarilis ASHFORD MD DR: JULIAN/hemal JOB#: [id number] / [id number]
[2019-03-14] MEDS: LEVOTHYROXINE 100 MCG TABLET PO SCH ×3 (05:28→05:31)
[2019-03-14 05:48] VITALS: BP 93/68
[2019-03-14] MEDS: NICOTINE 21MG PATCH. TD SCH (08:09)
[2019-03-14] MEDS: CELECOXIB 100 MG CAPSULE PO SCH (08:14)
[2019-03-14] MEDS: buPROPion XL 150 MG TAB.ER.24H PO SCH (08:14)
[2019-03-14] MEDS: CHOLECALCIFEROL (VITAMIN D3) 1,000 UNIT TABLET PO SCH (08:14)
[2019-03-14] MEDS: SERTRALINE 100 MG TABLET. PO SCH (08:14)
[2019-03-14 08:15] VITALS: BP 78/56
[2019-03-14] MEDS: PANTOPRAZOLE 40 MG TABLET. PO SCH (08:15)
[2019-03-14] MEDS: MULTIVITAMIN with MINERAL TABLET. PO SCH (08:15)
[2019-03-14] MEDS: SIMETHICONE 80 MG TAB.CHEW PO SCH ×3 (08:15→20:29)
[2019-03-14] MEDS: DOCUSATE SODIUM 100 MG CAPSULE PO SCH ×2 (08:15→20:28)
[2019-03-14] MEDS: ASPIRIN ENTERIC COATED 81 MG TABLET.DR. PO SCH (08:16)
[2019-03-14] MEDS: FUROSEMIDE 20 MG TABLET PO SCH (08:17)
[2019-03-14] MEDS: BENZTROPINE MESYLATE 0.5 MG TABLET PO SCH ×2 (08:17→20:28)
[2019-03-14] MEDS: HALOPERIDOL 5 MG TABLET PO SCH ×2 (09:00→20:28)
[2019-03-14] MEDS: ACETAMINOPHEN 325 MG TABLET PO PRN (09:24)
[2019-03-14 10:25] LABS: BASO # 0.1 x10^3/uL (0.0-0.2); BASO % 1 % (0-3); EOS % 1 % (0-3); HEMATOCRIT 39.4 % (39.0-53.0); HEMOGLOBIN 13.5 g/dL (13.0-17.5); LYMPH # 1.1 x10^3/uL (1.0-4.8); LYMPH % 14 % (24-48); MEAN CORPUSCULAR HEMOGLOBIN 32 pg (25-35); MEAN CORPUSCULAR HGB CONC 34 g/dL (31-37); MEAN CORPUSCULAR VOLUME 94 fL (79-100); MONO # 0.8 x10^3/uL (0.0-1.1); MONO % 10 % (0-9); NEUT # 5.6 x10^3uL (1.8-7.7); NEUT % 74 % (31-73); PLATELET COUNT 154 x10^3/uL (140-400); RED CELL DISTRIBUTION WIDTH 14.1 % (11.5-14.5); WHITE BLOOD COUNT 7.5 x10^3/uL (4.0-11.0)
[2019-03-14 10:34] LABS: CALCIUM 8.8 mg/dL (8.5-10.1); CREATININE 1.1 mg/dL (0.7-1.3); GFR 68.8
[2019-03-14 10:35] LABS: POTASSIUM 4.6 mmol/L (3.5-5.1)
[2019-03-14 10:40] LABS: ALBUMIN 3.3 g/dL (3.4-5.0); TOTAL BILIRUBIN 0.2 mg/dL (0.2-1.0); TOTAL PROTEIN 6.5 g/dL (6.4-8.2)
[2019-03-14 13:00] VITALS: BP 81/59
[2019-03-14] MEDS: HALOPERIDOL DECANOATE IM ER 100 MG/ML VIAL. IM SCH (13:50)
[2019-03-14 15:46] VITALS: BP 110/78
--- NOTE | 2019-03-14 16:00 | NUR ---
Nursing note: Pt was in dining room at time of morning meds and assessment. He was compliant with his meds whole and cooperative with his assessment. Pt c/o back pain he rated 7/10. PRN was given with his morning meds. Lasix and haldol were both held this morning d/t a continued low BP. Pt was encouraged to drink more water. Dr. Hall was informed of previous nights test results and pt's current condition, and new orders were obtained. Pt spent the morning sleeping in bed. After lunch, he was cheerful and remained sitting up in a chair in his room socializing with another pt. Will continue to monitor.
[2019-03-14] MEDS: TAMSULOSIN 0.4 MG CAP.ER.24H. PO SCH (20:28)
[2019-03-14] MEDS: MIRTAZAPINE 7.5 MG TABLET. PO SCH (20:28)
[2019-03-14] MEDS: ATORVASTATIN CALCIUM 10 MG TABLET. PO SCH (20:28)
[2019-03-14] MEDS: traMADol 50 MG TABLET PO SCH (20:29)
[2019-03-14 20:49] VITALS: BP 153/70
--- NOTE | 2019-03-14 21:17 | PDOC ---
Exam Note: Rafael Note: Please also refer to the separate dictated note~for this date of service dictated separately.~Patient seen individually. Discussed the patient with Nursing staff reviewed the chart.~Reviewed interim history and current functioning. Reviewed vital signs,~Labs/ Radiology~and current medications noted below. Continue current treatment with the changes noted in the dictated addendum note Assessment: Vital Signs/I&O: Vital Signs Date Time Temp Pulse Resp B/P (MAP) Pulse Ox O2 Delivery O2 Flow Rate FiO2 03/14/19 20:49 64 153/70 (97) 03/14/19 20:29 96 03/14/19 15:46 97.7 18 03/13/19 22:26 Room Air I & O 03/13/19 03/13/19 03/14/19 15:00 23:00 07:00 Intake Total 1200 ml 960 ml Output Total 1050 ml 2625 ml Balance 1200 ml -90 ml -2625 ml Labs: Laboratory Tests Test 03/14/19 10:18 White Blood Count 7.5 x10^3/uL (4.0-11.0) Red Blood Count 4.20 x10^6/uL (4.30-5.70) L Hemoglobin 13.5 g/dL (13.0-17.5) Hematocrit 39.4 % (39.0-53.0) Mean Corpuscular Volume 94 fL (79-100) Mean Corpuscular Hemoglobin 32 pg (25-35) Mean Corpuscular Hemoglobin Concent 34 g/dL (31-37) Red Cell Distribution Width 14.1 % (11.5-14.5) Platelet Count 154 x10^3/uL (140-400) Neutrophils (%) (Auto) 74 % (31-73) H Lymphocytes (%) (Auto) 14 % (24-48) L Monocytes (%) (Auto) 10 % (0-9) H Eosinophils (%) (Auto) 1 % (0-3) Basophils (%) (Auto) 1 % (0-3) Neutrophils # (Auto) 5.6 x10^3uL (1.8-7.7) Lymphocytes # (Auto) 1.1 x10^3/uL (1.0-4.8) Monocytes # (Auto) 0.8 x10^3/uL (0.0-1.1) Eosinophils # (Auto) 0.0 x10^3/uL (0.0-0.7) Basophils # (Auto) 0.1 x10^3/uL (0.0-0.2) Sodium Level 137 mmol/L (136-145) Potassium Level 4.6 mmol/L (3.5-5.1) Chloride Level 103 mmol/L (98-107) Carbon Dioxide Level 24 mmol/L (21-32) Anion Gap 10 (6-14) Blood Urea Nitrogen 20 mg/dL (8-26) Creatinine 1.1 mg/dL (0.7-1.3) Estimated GFR (Cockcroft-Gault) 68.8 BUN/Creatinine Ratio 18 (6-20) Glucose Level 159 mg/dL (70-99) H Lactic Acid Level 1.2 mmol/L (0.4-2.0) Calcium Level 8.8 mg/dL (8.5-10.1) Total Bilirubin 0.2 mg/dL (0.2-1.0) Aspartate Amino Transferase (AST) 24 U/L (15-37) Alanine Aminotransferase (ALT) 37 U/L (16-63) Alkaline Phosphatase 86 U/L (46-116) Total Protein 6.5 g/dL (6.4-8.2) Albumin 3.3 g/dL (3.4-5.0) L Albumin/Globulin Ratio 1.0 (1.0-1.7) Current Medications: Meds: Current Medications Medications (Trade) Dose Ordered Sig/Rober Route PRN Reason Start Time Stop Time Status Last Admin Dose Admin Tamsulosin HCl (Flomax) 0.4 mg QHS PO 03/14/19 21:00 03/14/19 20:28 I have reviewed the current psychotropics carefully including drug interactions. Risk benefit ratio favors no change other than as noted in my dictated progress note. Diagnosis: Problems: (1) Anxiety disorder (2) Impulse control disorder (3) Schizoaffective disorder, bipolar type (4) Schizoaffective disorder, chronic condition with acute exacerbation (5) Schizophrenia, paranoid, chronic with acute exacerbation LEONARD ASHFORD MD Mar 14, 2019 21:17
--- NOTE | 2019-03-14 21:37 | NUR ---
Pt withdrawn to room at shift change. Pt A/O x4, calm, and pleasant during interactions with staff. Pt cooperative with assessment and compliant with medications administered whole. Pt c/o lower back pain and headache this evening, scheduled Tramadol administered as ordered. Pt continues to have indwelling rod catheter to dependant drainage with clear, yellow urine noted. Pt BP this evening 153/70.
[2019-03-15] VITALS (7 sets, daily range): BP systolic 88–126; BP diastolic 61–79
--- NOTE | 2019-03-15 01:44 | PN ---
DATE: 03/13/2019 PSYCHIATRIC PROGRESS NOTE This late entry 03/13/2019 covers elements not covered in my initial note. SUBJECTIVE: I met with the patient in the evening of 03/13/2019. Per HUNG Younger, the patient slept 3-3/4 hours previous night. He has been withdrawn to his room, drowsy at early childhood teacher, later did better. Ammonia is less than 10. REVIEW OF SYSTEMS: No CV, , pulmonary, eye system symptoms on review. MENTAL STATUS EXAM: Oriented reasonably. Speech is coherent, abstraction fair, computation impaired, language function intact, attention span short. Mood and affect somewhat withdrawn. LABORATORY DATA: Reviewed. IMPRESSION: Schizoaffective disorder, bipolar type, mixed with psychotic features. Rest unchanged. PLAN: Start Remeron 7.5 mg p.o. at bedtime to help with the insomnia and anxiety. Rest unchanged for now. MAN RuizLaverne ASHFORD MD DR: JULIAN/hemal JOB#: [id number] / [id number]
[2019-03-15] MEDS: LEVOTHYROXINE 100 MCG TABLET PO SCH (05:13)
[2019-03-15] MEDS ORDERED: IV NORMAL SALINE 1,000ML 1,000 ML IV ONE (06:15)
--- NOTE | 2019-03-15 06:26 | NUR ---
Pt BP low this morning, 88/68 manually. Call placed to Dr. Hall. Orders received for repeat CMP,CBC,and Lactic Acid; IV NS @100ml/hr; and leave rod catheter in place at this time. IVF initiated and labs ordered.
[2019-03-15 06:59] LABS: BASO % 1 % (0-3); EOS # 0.1 x10^3/uL (0.0-0.7); EOS % 1 % (0-3); HEMATOCRIT 39.3 % (39.0-53.0); HEMOGLOBIN 13.5 g/dL (13.0-17.5); LYMPH # 1.7 x10^3/uL (1.0-4.8); LYMPH % 23 % (24-48); MEAN CORPUSCULAR HEMOGLOBIN 32 pg (25-35); MEAN CORPUSCULAR HGB CONC 35 g/dL (31-37); MEAN CORPUSCULAR VOLUME 93 fL (79-100); MONO # 0.9 x10^3/uL (0.0-1.1); MONO % 13 % (0-9); NEUT # 4.5 x10^3uL (1.8-7.7); NEUT % 62 % (31-73); PLATELET COUNT 173 x10^3/uL (140-400); RED BLOOD COUNT 4.23 x10^6/uL (4.30-5.70); RED CELL DISTRIBUTION WIDTH 13.7 % (11.5-14.5); WHITE BLOOD COUNT 7.3 x10^3/uL (4.0-11.0)
[2019-03-15 07:20] LABS: ALBUMIN 3.3 g/dL (3.4-5.0); CALCIUM 9.2 mg/dL (8.5-10.1); GFR 76.7; POTASSIUM 4.6 mmol/L (3.5-5.1); TOTAL BILIRUBIN 0.2 mg/dL (0.2-1.0); TOTAL PROTEIN 6.7 g/dL (6.4-8.2)
[2019-03-15] MEDS: ASPIRIN ENTERIC COATED 81 MG TABLET.DR. PO SCH (08:54)
[2019-03-15] MEDS: CELECOXIB 100 MG CAPSULE PO SCH (08:54)
[2019-03-15] MEDS: SIMETHICONE 80 MG TAB.CHEW PO SCH ×3 (08:54→20:33)
[2019-03-15] MEDS: MULTIVITAMIN with MINERAL TABLET. PO SCH (08:54)
[2019-03-15] MEDS: PANTOPRAZOLE 40 MG TABLET. PO SCH (08:54)
[2019-03-15] MEDS: buPROPion XL 150 MG TAB.ER.24H PO SCH (08:54)
[2019-03-15] MEDS: BENZTROPINE MESYLATE 0.5 MG TABLET PO SCH ×2 (08:54→20:32)
[2019-03-15] MEDS: CHOLECALCIFEROL (VITAMIN D3) 1,000 UNIT TABLET PO SCH (08:55)
[2019-03-15] MEDS: SERTRALINE 100 MG TABLET. PO SCH (08:55)
[2019-03-15] MEDS: DOCUSATE SODIUM 100 MG CAPSULE PO SCH ×2 (08:55→20:32)
[2019-03-15] MEDS: NICOTINE 21MG PATCH. TD SCH (08:56)
[2019-03-15] MEDS: HALOPERIDOL 5 MG TABLET PO SCH ×2 (08:56→20:32)
[2019-03-15] MEDS: ACETAMINOPHEN 325 MG TABLET PO PRN (09:09)
--- NOTE | 2019-03-15 13:13 | NUR ---
Nursing note: Pt in his room at time of morning meds and assessment. He was compliant with his meds whole and was cooperative with his assessment. He c/o back pain 08/08. PRN was given at that time. Pt did not eat breakfast, but he drank a boost. He was sleeping in his room all morning, then got up to eat lunch in the dining room. Pt is currently back in his room laying in bed. He has stated feeling dizzy a couple times today and he was reeducated to ask for help when he gets out of bed.
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
--- NOTE | 2019-03-15 16:43 | NUR ---
Nursing note: 1L NS infusion complete. Pt was reassessed and his BP had increased to 108/75. Spoke to Dr. Hall about pt condition and received new orders to check orthostatic BP tonight and in the AM, saline lock the IV, and keep the rod in place.
[2019-03-15] MEDS: traMADol 50 MG TABLET PO SCH (20:32)
[2019-03-15] MEDS: MIRTAZAPINE 7.5 MG TABLET. PO SCH (20:32)
[2019-03-15] MEDS: ATORVASTATIN CALCIUM 10 MG TABLET. PO SCH (20:32)
[2019-03-15] MEDS: TAMSULOSIN 0.4 MG CAP.ER.24H. PO SCH (20:32)
--- NOTE | 2019-03-15 22:06 | PDOC ---
Exam Note: Rafael Note: Please also refer to the separate dictated note~for this date of service dictated separately.~Patient seen individually. Discussed the patient with Nursing staff reviewed the chart.~Reviewed interim history and current functioning. Reviewed vital signs,~Labs/ Radiology~and current medications noted below. Continue current treatment with the changes noted in the dictated addendum note Assessment: Vital Signs/I&O: Vital Signs Date Time Temp Pulse Resp B/P (MAP) Pulse Ox O2 Delivery O2 Flow Rate FiO2 03/15/19 21:32 98 03/15/19 18:36 92 101/65 (77) 03/15/19 15:55 97.2 19 Room Air I & O 03/14/19 03/14/19 03/15/19 15:00 23:00 07:00 Intake Total 720 ml 840 ml Output Total 5650 ml 3850 ml Balance 720 ml -4810 ml -3850 ml Labs: Laboratory Tests Test 03/15/19 06:40 White Blood Count 7.3 x10^3/uL (4.0-11.0) Red Blood Count 4.23 x10^6/uL (4.30-5.70) L Hemoglobin 13.5 g/dL (13.0-17.5) Hematocrit 39.3 % (39.0-53.0) Mean Corpuscular Volume 93 fL (79-100) Mean Corpuscular Hemoglobin 32 pg (25-35) Mean Corpuscular Hemoglobin Concent 35 g/dL (31-37) Red Cell Distribution Width 13.7 % (11.5-14.5) Platelet Count 173 x10^3/uL (140-400) Neutrophils (%) (Auto) 62 % (31-73) Lymphocytes (%) (Auto) 23 % (24-48) L Monocytes (%) (Auto) 13 % (0-9) H Eosinophils (%) (Auto) 1 % (0-3) Basophils (%) (Auto) 1 % (0-3) Neutrophils # (Auto) 4.5 x10^3uL (1.8-7.7) Lymphocytes # (Auto) 1.7 x10^3/uL (1.0-4.8) Monocytes # (Auto) 0.9 x10^3/uL (0.0-1.1) Eosinophils # (Auto) 0.1 x10^3/uL (0.0-0.7) Basophils # (Auto) 0.0 x10^3/uL (0.0-0.2) Sodium Level 139 mmol/L (136-145) Potassium Level 4.6 mmol/L (3.5-5.1) Chloride Level 105 mmol/L (98-107) Carbon Dioxide Level 24 mmol/L (21-32) Anion Gap 10 (6-14) Blood Urea Nitrogen 19 mg/dL (8-26) Creatinine 1.0 mg/dL (0.7-1.3) Estimated GFR (Cockcroft-Gault) 76.7 BUN/Creatinine Ratio 19 (6-20) Glucose Level 101 mg/dL (70-99) H Lactic Acid Level 0.9 mmol/L (0.4-2.0) Calcium Level 9.2 mg/dL (8.5-10.1) Total Bilirubin 0.2 mg/dL (0.2-1.0) Aspartate Amino Transferase (AST) 22 U/L (15-37) Alanine Aminotransferase (ALT) 48 U/L (16-63) Alkaline Phosphatase 87 U/L (46-116) Total Protein 6.7 g/dL (6.4-8.2) Albumin 3.3 g/dL (3.4-5.0) L Albumin/Globulin Ratio 1.0 (1.0-1.7) Current Medications: Meds: Current Medications Medications (Trade) Dose Ordered Sig/Rober Route PRN Reason Start Time Stop Time Status Last Admin Dose Admin Sodium Chloride 1,000 ml @ 100 mls/hr Q10H ONCE IV 03/15/19 06:15 03/15/19 16:14 DC 03/15/19 06:10 I have reviewed the current psychotropics carefully including drug interactions. Risk benefit ratio favors no change other than as noted in my dictated progress note. Diagnosis: Problems: (1) Anxiety disorder (2) Impulse control disorder (3) Schizoaffective disorder, bipolar type (4) Schizoaffective disorder, chronic condition with acute exacerbation (5) Schizophrenia, paranoid, chronic with acute exacerbation LEONARD ASHFORD MD Mar 15, 2019 22:06
--- NOTE | 2019-03-15 22:48 | NUR ---
Nursing Note: Pt initially sitting quietly in his room at shift change but did come to the day room for snacks and to watch television for a little while. Pt A/O, calm, pleasant, social and interactive this evening. Pt cooperative with assessment and compliant with medications administered whole. PRN Bisacodyl administered for c/o constipation.
--- NOTE | 2019-03-15 23:50 | PN ---
DATE: 03/14/2019 PSYCHIATRIC PROGRESS NOTE This late entry 03/14/2019 covers elements not covered in my initial note. SUBJECTIVE: I met with the patient evening of 03/14/2019. Per HUNG Seay, the patient slept 8-3/4 hours previous night. He has been pleasant, compliant, blood pressure was low this morning of 114, received IV fluids and Dr. Hall's following labs. Better in the evening as I met with him. Somewhat sedated during the day. Up for lunch and then better, withdrawn to his room in the evening. REVIEW OF SYSTEMS: No CV, , pulmonary, eye system symptoms on review. MENTAL STATUS EXAM: Reasonably oriented. Speech is coherent, abstraction fair, computation impaired, language function intact, attention span short. Mood and affect withdrawn. LABORATORY DATA: Reviewed. IMPRESSION: Unchanged from initial note. PLAN: No change from initial note. MAN Amarilis ASHFORD MD DR: JULIAN/hemal JOB#: [id number] / [id number]
[2019-03-16] MEDS: LEVOTHYROXINE 100 MCG TABLET PO SCH (05:50)
--- NOTE | 2019-03-16 06:28 | RAD ---
Chest AP portable at 0520: Reason for examination: Wheezing. Comparison is made to previous study dated 03/13/2019. The heart size is normal. Mediastinum is unremarkable. Lung robb show improvement in the pulmonary vasculature and interstitium. There is suggestion however of some increased density medially at the right apex. This may be due to the mediastinal vasculature however recommend follow-up. No acute bony abnormalities are present. IMPRESSION: Improvement in the pulmonary vasculature and interstitium since previous examination. Soft tissue density in the medial right upper lobe. This may be related to the mediastinal vasculature however recommend follow-up. Electronically signed by: Trudi Traore MD (03/16/2019 6:25 AM) [facility]
[2019-03-16 07:33] VITALS: BP 112/78
[2019-03-16 07:34] VITALS: BP_SYST 100; BP_SYST 90; BP_DIAS 51; BP_DIAS 76
[2019-03-16] MEDS: DOCUSATE SODIUM 100 MG CAPSULE PO SCH ×2 (08:34→20:24)
[2019-03-16] MEDS: CELECOXIB 100 MG CAPSULE PO SCH (08:34)
[2019-03-16] MEDS: buPROPion XL 150 MG TAB.ER.24H PO SCH (08:34)
[2019-03-16] MEDS: HALOPERIDOL 5 MG TABLET PO SCH ×2 (08:34→20:24)
[2019-03-16] MEDS: CHOLECALCIFEROL (VITAMIN D3) 1,000 UNIT TABLET PO SCH (08:35)
[2019-03-16] MEDS: NICOTINE 21MG PATCH. TD SCH (08:35)
[2019-03-16] MEDS: SIMETHICONE 80 MG TAB.CHEW PO SCH ×3 (08:35→20:23)
[2019-03-16] MEDS: PANTOPRAZOLE 40 MG TABLET. PO SCH (08:36)
[2019-03-16] MEDS: MULTIVITAMIN with MINERAL TABLET. PO SCH (08:36)
[2019-03-16] MEDS: ASPIRIN ENTERIC COATED 81 MG TABLET.DR. PO SCH (08:36)
[2019-03-16] MEDS: SERTRALINE 100 MG TABLET. PO SCH (08:36)
[2019-03-16] MEDS: BENZTROPINE MESYLATE 0.5 MG TABLET PO SCH ×2 (08:36→20:24)
--- NOTE | 2019-03-16 10:56 | NUR ---
SW contact SAMIRA Lopez at [facility] on [address], to inform him pt. would not be discharging the end of this week, as the doctor does not feel he is ready to go at this time.
--- NOTE | 2019-03-16 11:40 | NUR ---
Pt located in dining room this morning. Compliant with whole medications. Pt states that he feels better and is not lightheaded this morning. Pt has been in and out of his room this morning. Pt currently still has an IV in his left wrist saline locked.
[2019-03-16 16:09] VITALS: BP 124/88
--- NOTE | 2019-03-16 17:02 | NUR ---
WEEKLY ACTIVITY THERAPY NOTE Date of Admission: 02/27/2019 Date of AT Assessment: 03/02/2019 Goal aimed: to increase engagement Initial goal: Pt. will participate in one individual session before discharge. Goal repeated on 03/09/2019 Weekly progress towards goal: achieved in group Group participation level: moderate in one group Weekly highlights:fishing in group on Behaviors observed: withdrawn to room, not feeling well, sleeping often Plan: change goal to: Pt. will participate in at least five Activity Therapy groups before discharge Beneficial adaptations: encouragement
[2019-03-16] MEDS: MIRTAZAPINE 7.5 MG TABLET. PO SCH (20:23)
[2019-03-16] MEDS: traMADol 50 MG TABLET PO SCH (20:23)
[2019-03-16] MEDS: TAMSULOSIN 0.4 MG CAP.ER.24H. PO SCH (20:24)
[2019-03-16] MEDS: ATORVASTATIN CALCIUM 10 MG TABLET. PO SCH (20:24)
--- NOTE | 2019-03-16 20:58 | PDOC ---
Exam Note: Rafael Note: Please also refer to the separate dictated note~for this date of service dictated separately.~Patient seen individually. Discussed the patient with Nursing staff reviewed the chart.~Reviewed interim history and current functioning. Reviewed vital signs,~Labs/ Radiology~and current medications noted below. Continue current treatment with the changes noted in the dictated addendum note Assessment: Vital Signs/I&O: Vital Signs Date Time Temp Pulse Resp B/P (MAP) Pulse Ox O2 Delivery O2 Flow Rate FiO2 03/16/19 20:23 99 03/16/19 16:09 98.0 89 18 124/88 (100) 03/15/19 15:55 Room Air I & O 03/15/19 03/15/19 03/16/19 15:00 23:00 07:00 Intake Total 480 ml 720 ml Output Total 3225 ml Balance 480 ml -2505 ml Current Medications: I have reviewed the current psychotropics carefully including drug interactions. Risk benefit ratio favors no change other than as noted in my dictated progress note. Diagnosis: Problems: (1) Anxiety disorder (2) Impulse control disorder (3) Schizoaffective disorder, bipolar type (4) Schizoaffective disorder, chronic condition with acute exacerbation (5) Schizophrenia, paranoid, chronic with acute exacerbation LEONARD ASHFORD MD Mar 16, 2019 20:58
--- NOTE | 2019-03-16 21:28 | NUR ---
Nursing Note: Pt withdrawn to room at shift change but later came to the day room to watch a movie this evening. Pt calm, pleasant, and interactive. Pt cooperative with assessment and compliant with medications. Peripheral IV Left wrist discontinued this evening without complications.
[2019-03-17] MEDS: LEVOTHYROXINE 100 MCG TABLET PO SCH (05:40)
[2019-03-17 06:07] VITALS: BP 91/61
--- NOTE | 2019-03-17 06:17 | NUR ---
Nursing Note: Pt rod catheter removed at 0544 this morning without complications. Pt tolerated procedure well. Pt provided with urinal and educated on importance of allowing staff to monitor his urine output. Pt verbalized understanding.
[2019-03-17] MEDS: buPROPion XL 150 MG TAB.ER.24H PO SCH (08:18)
[2019-03-17] MEDS: CHOLECALCIFEROL (VITAMIN D3) 1,000 UNIT TABLET PO SCH (08:19)
[2019-03-17] MEDS: MULTIVITAMIN with MINERAL TABLET. PO SCH (08:19)
[2019-03-17] MEDS: PANTOPRAZOLE 40 MG TABLET. PO SCH (08:19)
[2019-03-17] MEDS: HALOPERIDOL 5 MG TABLET PO SCH ×2 (08:19→20:06)
[2019-03-17] MEDS: BENZTROPINE MESYLATE 0.5 MG TABLET PO SCH (08:19)
[2019-03-17] MEDS: ASPIRIN ENTERIC COATED 81 MG TABLET.DR. PO SCH (08:19)
[2019-03-17] MEDS: CELECOXIB 100 MG CAPSULE PO SCH (08:19)
[2019-03-17] MEDS: DOCUSATE SODIUM 100 MG CAPSULE PO SCH ×2 (08:19→20:06)
[2019-03-17] MEDS: SERTRALINE 100 MG TABLET. PO SCH (08:19)
[2019-03-17] MEDS: NICOTINE 21MG PATCH. TD SCH (08:20)
[2019-03-17] MEDS: SIMETHICONE 80 MG TAB.CHEW PO SCH ×3 (08:20→20:05)
--- NOTE | 2019-03-17 15:18 | NUR ---
Pt has not been able to urine today even with adequate fluids and attempts to urinate. Pt bladder scanned for 647. Pt cathed for 650 clear yellow urine. Pt upset to have rod back in.
--- NOTE | 2019-03-17 16:20 | PN ---
DATE: 03/15/2019 PSYCHIATRIC PROGRESS NOTE This late entry 03/15/2019 covers elements not covered in my initial note. SUBJECTIVE: I met with the patient evening of 03/15/2019. Per HUNG Seay, the patient slept 5 hours previous night. He ate no breakfast. Blood pressure was somewhat low. Defer to Dr. Hall. He did drink some Boost, somewhat withdrawn, but not making statements that he was the son of Edmond. REVIEW OF SYSTEMS: No CV, , pulmonary, eye, ENT system symptoms on review. Reliability varies. MENTAL STATUS EXAM: Oriented to himself and situation. Speech has some latency, less pressured. Abstraction fair, computation impaired, language function intact, attention span short. Mood and affect withdrawn. LABORATORY DATA: Reviewed. IMPRESSION: Unchanged from initial note. PLAN: No change from initial note. MAN Amarilis ASHFORD MD DR: JULIAN/hemal JOB#: [id number] / [id number]
[2019-03-17 16:23] VITALS: BP 159/104
--- NOTE | 2019-03-17 16:41 | PN ---
DATE: 03/16/2019 PSYCHIATRIC PROGRESS NOTE This late entry 03/16/2019 covers elements not covered in my initial note. SUBJECTIVE: I met with the patient evening of 03/16/2019. The patient slept 6 hours previous night per HUNG Burr. We will defer to Dr. Hall to stop the Joy. He denies any dizziness, less psychotic, less grandiose, not talking about being the son of Edmond. REVIEW OF SYSTEMS: No CV, , pulmonary, eye system symptoms on review. MENTAL STATUS EXAM: Oriented to himself and situation. Speech is coherent, abstraction fair, computation impaired, language function intact, attention span short. Mood and affect somewhat withdrawn. LABORATORY DATA: Reviewed. IMPRESSION: Unchanged from initial note. PLAN: No change from initial note. MAN Amarilis ASHFORD MD DR: JULIAN/hemal JOB#: [id number] / [id number]
[2019-03-17] MEDS: TAMSULOSIN 0.4 MG CAP.ER.24H. PO SCH (20:05)
[2019-03-17] MEDS: traMADol 50 MG TABLET PO SCH (20:05)
[2019-03-17] MEDS: ATORVASTATIN CALCIUM 10 MG TABLET. PO SCH (20:05)
[2019-03-17] MEDS: MIRTAZAPINE 7.5 MG TABLET. PO SCH (20:06)
--- NOTE | 2019-03-17 20:56 | PDOC ---
Exam Note: Rafael Note: Please also refer to the separate dictated note~for this date of service dictated separately.~Patient seen individually. Discussed the patient with Nursing staff reviewed the chart.~Reviewed interim history and current functioning. Reviewed vital signs,~Labs/ Radiology~and current medications noted below. Continue current treatment with the changes noted in the dictated addendum note Assessment: Vital Signs/I&O: Vital Signs Date Time Temp Pulse Resp B/P (MAP) Pulse Ox O2 Delivery O2 Flow Rate FiO2 03/17/19 20:05 97 03/17/19 16:23 97.2 76 18 159/104 (122) 03/17/19 06:07 Room Air I & O 03/16/19 03/16/19 03/17/19 15:00 23:00 07:00 Intake Total 1560 ml 1080 ml Output Total 1000 ml 8100 ml Balance 560 ml -7020 ml Current Medications: I have reviewed the current psychotropics carefully including drug interactions. Risk benefit ratio favors no change other than as noted in my dictated progress note. Diagnosis: Problems: (1) Anxiety disorder (2) Impulse control disorder (3) Schizoaffective disorder, bipolar type (4) Schizoaffective disorder, chronic condition with acute exacerbation (5) Schizophrenia, paranoid, chronic with acute exacerbation LEONARD ASHFORD MD Mar 17, 2019 20:56
--- NOTE | 2019-03-17 22:30 | NUR ---
Pt located in his room all evening. Pt calm and compliant with HS medications and assessment. Pt states he is upset about having the catheter placed today, but voiced understanding as to why is was re-placed. Pt currently sleeping in bed.
[2019-03-18] MEDS: LEVOTHYROXINE 100 MCG TABLET PO SCH (05:26)
[2019-03-18 06:07] VITALS: BP 105/72
[2019-03-18] MEDS: NICOTINE 21MG PATCH. TD SCH (09:05)
[2019-03-18] MEDS: ASPIRIN ENTERIC COATED 81 MG TABLET.DR. PO SCH (09:05)
[2019-03-18] MEDS: MULTIVITAMIN with MINERAL TABLET. PO SCH (09:06)
[2019-03-18] MEDS: PANTOPRAZOLE 40 MG TABLET. PO SCH (09:06)
[2019-03-18] MEDS: buPROPion XL 150 MG TAB.ER.24H PO SCH (09:06)
[2019-03-18] MEDS: HALOPERIDOL 5 MG TABLET PO SCH ×2 (09:06→19:37)
[2019-03-18] MEDS: SIMETHICONE 80 MG TAB.CHEW PO SCH ×3 (09:06→19:37)
[2019-03-18] MEDS: CELECOXIB 100 MG CAPSULE PO SCH (09:06)
[2019-03-18] MEDS: DOCUSATE SODIUM 100 MG CAPSULE PO SCH ×2 (09:06→19:38)
[2019-03-18] MEDS: SERTRALINE 100 MG TABLET. PO SCH (09:06)
[2019-03-18] MEDS: CHOLECALCIFEROL (VITAMIN D3) 1,000 UNIT TABLET PO SCH (09:06)
[2019-03-18 15:25] VITALS: BP 103/77
[2019-03-18] MEDS: NICOTINE POLACRILEX GUM 2 MG GUM. BC PRN ×2 (18:11→19:15)
--- NOTE | 2019-03-18 18:50 | NUR ---
Pt up adl to meals. Has been compliant with meds and cares. Joy patent with very large amounts of urine.
[2019-03-18] MEDS: traMADol 50 MG TABLET PO SCH (19:36)
[2019-03-18] MEDS: ATORVASTATIN CALCIUM 10 MG TABLET. PO SCH (19:36)
[2019-03-18] MEDS: MIRTAZAPINE 7.5 MG TABLET. PO SCH (19:36)
[2019-03-18] MEDS: TAMSULOSIN 0.4 MG CAP.ER.24H. PO SCH (19:38)
--- NOTE | 2019-03-18 20:53 | PDOC ---
Exam Note: Rafael Note: Please also refer to the separate dictated note~for this date of service dictated separately.~Patient seen individually. Discussed the patient with Nursing staff reviewed the chart.~Reviewed interim history and current functioning. Reviewed vital signs,~Labs/ Radiology~and current medications noted below. Continue current treatment with the changes noted in the dictated addendum note Assessment: Vital Signs/I&O: Vital Signs Date Time Temp Pulse Resp B/P (MAP) Pulse Ox O2 Delivery O2 Flow Rate FiO2 03/18/19 19:36 18 Room Air 03/18/19 15:25 98.0 60 103/77 (86) 97 I & O 03/17/19 03/17/19 03/18/19 15:00 23:00 07:00 Intake Total 1080 ml 360 ml Output Total 650 ml 1980 ml 9000 ml Balance 430 ml -1620 ml -9000 ml Current Medications: Meds: Current Medications Medications (Trade) Dose Ordered Sig/Rober Route PRN Reason Start Time Stop Time Status Last Admin Dose Admin Nicotine Polacrilex (Nicorette Gum) 2 mg PRN Q1HR PRN BC SMOKING CESSATION 03/18/19 00:00 03/18/19 19:15 I have reviewed the current psychotropics carefully including drug interactions. Risk benefit ratio favors no change other than as noted in my dictated progress note. Diagnosis: Problems: (1) Anxiety disorder (2) Impulse control disorder (3) Schizoaffective disorder, bipolar type (4) Schizoaffective disorder, chronic condition with acute exacerbation (5) Schizophrenia, paranoid, chronic with acute exacerbation LEONARD ASHFORD MD Mar 18, 2019 20:53
--- NOTE | 2019-03-18 23:28 | NUR ---
Nursing Note The patient was calm and compliant with cares and assessment. The patient took his medication whole and was pleasant during interactions with staff. The patient is currently sleeping in his room.
[2019-03-19 05:47] VITALS: BP 101/70
[2019-03-19] MEDS: LEVOTHYROXINE 100 MCG TABLET PO SCH (06:25)
[2019-03-19] MEDS: buPROPion XL 150 MG TAB.ER.24H PO SCH (08:14)
[2019-03-19] MEDS: ASPIRIN ENTERIC COATED 81 MG TABLET.DR. PO SCH (08:14)
[2019-03-19] MEDS: NICOTINE 21MG PATCH. TD SCH (08:14)
[2019-03-19] MEDS: HALOPERIDOL 5 MG TABLET PO SCH ×2 (08:15→20:27)
[2019-03-19] MEDS: PANTOPRAZOLE 40 MG TABLET. PO SCH (08:15)
[2019-03-19] MEDS: SIMETHICONE 80 MG TAB.CHEW PO SCH ×3 (08:15→20:28)
[2019-03-19] MEDS: CHOLECALCIFEROL (VITAMIN D3) 1,000 UNIT TABLET PO SCH (08:15)
[2019-03-19] MEDS: MULTIVITAMIN with MINERAL TABLET. PO SCH (08:15)
[2019-03-19] MEDS: CELECOXIB 100 MG CAPSULE PO SCH (08:16)
[2019-03-19] MEDS: SERTRALINE 100 MG TABLET. PO SCH (08:16)
[2019-03-19] MEDS: DOCUSATE SODIUM 100 MG CAPSULE PO SCH ×2 (08:16→20:27)
[2019-03-19] MEDS: NICOTINE POLACRILEX GUM 2 MG GUM. BC PRN (13:30)
[2019-03-19 15:28] VITALS: BP 112/81
[2019-03-19 15:56] LABS: CREATININE 1.2 mg/dL (0.7-1.3); GFR 62.2; POTASSIUM 4.4 mmol/L (3.5-5.1)
--- NOTE | 2019-03-19 16:15 | NUR ---
Pt continues to have copious amounts of urine output. Dr Hall aware. Order for BMP. WNL. Pt encouraged to drink 8 8oz glasses of fluids per day as blood was become dilute. Pt compliant with meds and cares.
[2019-03-19] MEDS: traMADol 50 MG TABLET PO SCH (20:27)
[2019-03-19] MEDS: TAMSULOSIN 0.4 MG CAP.ER.24H. PO SCH (20:27)
[2019-03-19] MEDS: ATORVASTATIN CALCIUM 10 MG TABLET. PO SCH (20:27)
[2019-03-19] MEDS: MIRTAZAPINE 7.5 MG TABLET. PO SCH (20:27)
--- NOTE | 2019-03-19 20:55 | PDOC ---
Exam Note: Rafael Note: Please also refer to the separate dictated note~for this date of service dictated separately.~Patient seen individually. Discussed the patient with Nursing staff reviewed the chart.~Reviewed interim history and current functioning. Reviewed vital signs,~Labs/ Radiology~and current medications noted below. Continue current treatment with the changes noted in the dictated addendum note Assessment: Vital Signs/I&O: Vital Signs Date Time Temp Pulse Resp B/P (MAP) Pulse Ox O2 Delivery O2 Flow Rate FiO2 03/19/19 20:27 97 03/19/19 15:28 98.1 82 18 112/81 (91) 03/18/19 22:12 Room Air I & O 03/18/19 03/18/19 03/19/19 15:00 23:00 07:00 Intake Total 600 ml 360 ml Output Total 1900 ml 3775 ml Balance 600 ml -1540 ml -3775 ml Labs: Laboratory Tests Test 03/19/19 15:15 Sodium Level 136 mmol/L (136-145) Potassium Level 4.4 mmol/L (3.5-5.1) Chloride Level 102 mmol/L (98-107) Carbon Dioxide Level 20 mmol/L (21-32) L Anion Gap 14 (6-14) Blood Urea Nitrogen 22 mg/dL (8-26) Creatinine 1.2 mg/dL (0.7-1.3) Estimated GFR (Cockcroft-Gault) 62.2 Glucose Level 128 mg/dL (70-99) H Calcium Level 9.0 mg/dL (8.5-10.1) Current Medications: I have reviewed the current psychotropics carefully including drug interactions. Risk benefit ratio favors no change other than as noted in my dictated progress note. Diagnosis: Problems: (1) Anxiety disorder (2) Impulse control disorder (3) Schizoaffective disorder, bipolar type (4) Schizoaffective disorder, chronic condition with acute exacerbation (5) Schizophrenia, paranoid, chronic with acute exacerbation LEONARD ASHFORD MD Mar 19, 2019 20:55
--- NOTE | 2019-03-20 01:37 | NUR ---
Pt withdrawn to room, lying in bed at shift change but later came to the day room for snacks. Pt calm, pleasant, and interactive this evening. Pt cooperative with assessment and compliant with medications administered whole. Joy to d/d with clear yellow urine.
--- NOTE | 2019-03-20 04:35 | PN ---
DATE: 03/18/2019 PSYCHIATRIC PROGRESS NOTE This late entry, 03/18/2019, covers elements not covered in my initial note. SUBJECTIVE: I met with the patient in the evening. The patient slept 7-1/4 hours previous night. He is not happy with the Joy, otherwise doing better, not aggressive, less psychotic, less grandiose and not talking about being the son of Edmond. REVIEW OF SYSTEMS: Urinary retention. No CV, GI, ENT system symptoms on review. MENTAL STATUS EXAM: Reasonably oriented. Speech is coherent, has some latency. Abstraction fair, computation impaired, language function intact, attention span short. Mood and affect somewhat withdrawn. LABORATORY DATA: Reviewed. IMPRESSION: Unchanged from initial note. PLAN: No change from initial note. MAN Amarilis ASHFORD MD DR: JULIAN/hemal JOB#: [id number] / [id number]
[2019-03-20] MEDS: LEVOTHYROXINE 100 MCG TABLET PO SCH (05:41)
[2019-03-20 06:01] VITALS: BP 92/67
[2019-03-20] MEDS: CELECOXIB 100 MG CAPSULE PO SCH (08:17)
[2019-03-20] MEDS: HALOPERIDOL 5 MG TABLET PO SCH ×2 (08:17→20:17)
[2019-03-20] MEDS: SERTRALINE 100 MG TABLET. PO SCH (08:18)
[2019-03-20] MEDS: MULTIVITAMIN with MINERAL TABLET. PO SCH (08:18)
[2019-03-20] MEDS: DOCUSATE SODIUM 100 MG CAPSULE PO SCH ×2 (08:18→20:18)
[2019-03-20] MEDS: buPROPion XL 150 MG TAB.ER.24H PO SCH (08:18)
[2019-03-20] MEDS: ASPIRIN ENTERIC COATED 81 MG TABLET.DR. PO SCH (08:18)
[2019-03-20] MEDS: PANTOPRAZOLE 40 MG TABLET. PO SCH (08:18)
[2019-03-20] MEDS: CHOLECALCIFEROL (VITAMIN D3) 1,000 UNIT TABLET PO SCH (08:18)
[2019-03-20] MEDS: SIMETHICONE 80 MG TAB.CHEW PO SCH ×3 (08:19→20:17)
[2019-03-20] MEDS: NICOTINE 21MG PATCH. TD SCH (08:19)
--- NOTE | 2019-03-20 10:10 | NUR ---
Nursing note: Pt in dining room for morning meds and assessment. He was compliant with his meds whole and was cooperative with his assessment. He was pleasant and interactive and he only complained of feeling tired even though he felt that he slept well last night. Pt is currently resting in his room. Will continue to monitor.
--- NOTE | 2019-03-20 12:41 | PN ---
DATE: 03/17/2019 PSYCHIATRIC PROGRESS NOTE This late entry, 03/17/2019, covers elements not covered in my initial note. SUBJECTIVE: I met with the patient evening of 03/17. Per HUNG Jo, the patient slept 7 hours previous night. He retains urine. Joy had to be placed back in. Chest x-ray is better. He is on Cogentin 0.5 mg b.i.d. He has no extrapyramidal side effects and we will stop it. REVIEW OF SYSTEMS: Positive for urinary retention. No CV, GI, pulmonary, ENT system symptoms on review. MENTAL STATUS EXAM: Oriented to himself and situation. Speech has some latency, coherent. Abstraction fair, computation impaired, language function intact, attention span short. Mood and affect withdrawn at times, met with him in his room. LABORATORY DATA: Reviewed. IMPRESSION: Unchanged from initial note. PLAN: No change from initial note other than above. LEONARD ASHFORD MD DR: JULIAN/hemal JOB#: [id number] / [id number]
[2019-03-20 15:57] VITALS: BP 102/73
[2019-03-20] MEDS: NICOTINE POLACRILEX GUM 2 MG GUM. BC PRN ×2 (16:03→18:20)
[2019-03-20] MEDS: MIRTAZAPINE 7.5 MG TABLET. PO SCH (20:17)
[2019-03-20] MEDS: TAMSULOSIN 0.4 MG CAP.ER.24H. PO SCH (20:18)
[2019-03-20] MEDS: traMADol 50 MG TABLET PO SCH (20:18)
[2019-03-20] MEDS: ATORVASTATIN CALCIUM 10 MG TABLET. PO SCH (20:18)
--- NOTE | 2019-03-20 20:53 | PDOC ---
Exam Note: Rafael Note: Please also refer to the separate dictated note~for this date of service dictated separately.~Patient seen individually. Discussed the patient with Nursing staff reviewed the chart.~Reviewed interim history and current functioning. Reviewed vital signs,~Labs/ Radiology~and current medications noted below. Continue current treatment with the changes noted in the dictated addendum note Assessment: Vital Signs/I&O: Vital Signs Date Time Temp Pulse Resp B/P (MAP) Pulse Ox O2 Delivery O2 Flow Rate FiO2 03/20/19 15:57 98.6 93 18 102/73 (83) 97 03/18/19 22:12 Room Air I & O 03/19/19 03/19/19 03/20/19 14:59 22:59 06:59 Intake Total 960 ml 460 ml 300 ml Output Total 1400 ml 1450 ml 3750 ml Balance -440 ml -990 ml -3450 ml Current Medications: I have reviewed the current psychotropics carefully including drug interactions. Risk benefit ratio favors no change other than as noted in my dictated progress note. Diagnosis: Problems: (1) Anxiety disorder (2) Impulse control disorder (3) Schizoaffective disorder, bipolar type (4) Schizoaffective disorder, chronic condition with acute exacerbation (5) Schizophrenia, paranoid, chronic with acute exacerbation LEONARD ASHFORD MD Mar 20, 2019 20:53
--- NOTE | 2019-03-20 22:02 | NUR ---
Nursing Note: Pt withdrawn to room this evening. Pt calm, pleasant, and interactive. Pt cooperative with assessment and compliant with medications administered whole. Joy cath to d/d remains in place, draining clear, bright yellow urine.
--- NOTE | 2019-03-20 23:42 | PN ---
DATE: 03/19/2019 PSYCHIATRIC PROGRESS NOTE This late entry 03/19/2019 covers the elements not covered in my initial note. SUBJECTIVE: I met with the patient in the evening of 03/19/2019. Per HUNG Byers, the patient slept 7 hours previous night. He has been calm, cooperative, somewhat withdrawn, compliant with his medications. Psychosis and grandiosity is improved as I met with him at length in his room in the evening. REVIEW OF SYSTEMS: No CV, , pulmonary, eye system symptoms on review. MENTAL STATUS EXAM: Reasonably oriented. Speech is coherent, abstraction fair, computation impaired, language function intact, attention span short. Mood and affect somewhat withdrawn. LABORATORY DATA: Reviewed. IMPRESSION: Unchanged from initial note. PLAN: No change from initial note. LEONARD ASHFORD MD DR: JULIAN/hemal JOB#: [id number] / [id number]
[2019-03-21] MEDS: LEVOTHYROXINE 100 MCG TABLET PO SCH (05:09)
[2019-03-21 06:11] VITALS: BP 97/72
[2019-03-21] MEDS: CHOLECALCIFEROL (VITAMIN D3) 1,000 UNIT TABLET PO SCH (08:06)
[2019-03-21] MEDS: buPROPion XL 150 MG TAB.ER.24H PO SCH (08:06)
[2019-03-21] MEDS: ASPIRIN ENTERIC COATED 81 MG TABLET.DR. PO SCH (08:07)
[2019-03-21] MEDS: MULTIVITAMIN with MINERAL TABLET. PO SCH (08:07)
[2019-03-21] MEDS: DOCUSATE SODIUM 100 MG CAPSULE PO SCH ×2 (08:07→20:15)
[2019-03-21] MEDS: CELECOXIB 100 MG CAPSULE PO SCH (08:07)
[2019-03-21] MEDS: HALOPERIDOL 5 MG TABLET PO SCH ×2 (08:07→20:14)
[2019-03-21] MEDS: SERTRALINE 100 MG TABLET. PO SCH (08:07)
[2019-03-21] MEDS: PANTOPRAZOLE 40 MG TABLET. PO SCH (08:07)
[2019-03-21] MEDS: NICOTINE 21MG PATCH. TD SCH (08:08)
[2019-03-21] MEDS: SIMETHICONE 80 MG TAB.CHEW PO SCH ×3 (08:08→20:15)
[2019-03-21] MEDS: NICOTINE POLACRILEX GUM 2 MG GUM. BC PRN ×3 (10:00→18:23)
--- NOTE | 2019-03-21 10:35 | NUR ---
SAMIRA received a call from SAMIRA Lopez at the [facility] on [address], checking on pt. progress. SAMIRA shared progress and will leave a note for the doctor to determine a tentative discharge. SAMIRA will contact John with that information on 03/22/2019.
--- NOTE | 2019-03-21 12:48 | NUR ---
Nursing note: Pt in dining room this morning for meds and assessment. He was compliant with his meds whole and cooperative with his assessment. Pt c/o discomfort from his rod, but continues to drain clear, yellow urine and there is no sign of redness or swelling. Pt has been withdrawn to his room all morning. Will continue to monitor.
--- NOTE | 2019-03-21 15:00 | NUR ---
Nursing note: Per Dr. Hall, pt rod needs to remain in place and pt will need to f\u with urology after d/c.
[2019-03-21] MEDS: ACETAMINOPHEN 325 MG TABLET PO PRN (16:12)
[2019-03-21 16:16] VITALS: BP 108/75
--- NOTE | 2019-03-21 16:33 | NUR ---
Nursing note: Pt c/o of back pain 09/07. PRN given. Will continue to monitor.
[2019-03-21] MEDS: MIRTAZAPINE 7.5 MG TABLET. PO SCH (20:14)
[2019-03-21] MEDS: ATORVASTATIN CALCIUM 10 MG TABLET. PO SCH (20:14)
[2019-03-21] MEDS: traMADol 50 MG TABLET PO SCH (20:15)
[2019-03-21] MEDS: TAMSULOSIN 0.4 MG CAP.ER.24H. PO SCH (20:15)
--- NOTE | 2019-03-21 20:50 | NUR ---
Nursing Note: Pt withdrawn to room, sitting in chair at shift change. Pt calm, pleasant, and interactive. Pt cooperative with assessment and compliant with medications. Joy catheter remains in place to d/d with clear, bright yellow urine.
--- NOTE | 2019-03-21 20:59 | PDOC ---
Exam Note: Rafael Note: Please also refer to the separate dictated note~for this date of service dictated separately.~Patient seen individually. Discussed the patient with Nursing staff reviewed the chart.~Reviewed interim history and current functioning. Reviewed vital signs,~Labs/ Radiology~and current medications noted below. Continue current treatment with the changes noted in the dictated addendum note Assessment: Vital Signs/I&O: Vital Signs Date Time Temp Pulse Resp B/P (MAP) Pulse Ox O2 Delivery O2 Flow Rate FiO2 03/21/19 16:16 98.4 89 18 108/75 (86) 98 Room Air I & O 03/20/19 03/20/19 03/21/19 15:00 23:00 07:00 Intake Total 960 ml 720 ml Output Total 1150 ml 3300 ml Balance -190 ml -2580 ml Current Medications: I have reviewed the current psychotropics carefully including drug interactions. Risk benefit ratio favors no change other than as noted in my dictated progress note. Diagnosis: Problems: (1) Anxiety disorder (2) Impulse control disorder (3) Schizoaffective disorder, bipolar type (4) Schizoaffective disorder, chronic condition with acute exacerbation (5) Schizophrenia, paranoid, chronic with acute exacerbation LEONARD ASHFORD MD Mar 21, 2019 20:59
[2019-03-22] MEDS: LEVOTHYROXINE 100 MCG TABLET PO SCH (05:10)
[2019-03-22 05:14] VITALS: BP 95/63
[2019-03-22 06:45] LABS: BASO % 1 % (0-3); EOS # 0.1 x10^3/uL (0.0-0.7); EOS % 2 % (0-3); HEMOGLOBIN 13.8 g/dL (13.0-17.5); LYMPH # 1.9 x10^3/uL (1.0-4.8); LYMPH % 24 % (24-48); MEAN CORPUSCULAR HEMOGLOBIN 32 pg (25-35); MEAN CORPUSCULAR HGB CONC 34 g/dL (31-37); MEAN CORPUSCULAR VOLUME 95 fL (79-100); MONO # 0.6 x10^3/uL (0.0-1.1); MONO % 8 % (0-9); NEUT % 65 % (31-73); PLATELET COUNT 217 x10^3/uL (140-400); RED BLOOD COUNT 4.34 x10^6/uL (4.30-5.70); RED CELL DISTRIBUTION WIDTH 13.4 % (11.5-14.5); WHITE BLOOD COUNT 7.7 x10^3/uL (4.0-11.0)
[2019-03-22 07:02] LABS: ALBUMIN 3.4 g/dL (3.4-5.0); ALBUMIN/GLOBULIN RATIO 0.9 (1.0-1.7); GFR 76.7; POTASSIUM 4.4 mmol/L (3.5-5.1); TOTAL BILIRUBIN 0.2 mg/dL (0.2-1.0)
--- NOTE | 2019-03-22 07:10 | PN ---
DATE: 03/20/2019 PSYCHIATRIC PROGRESS NOTE This late entry 03/20/2019 covers elements not covered in my initial note. SUBJECTIVE: I met with the patient the evening of 03/20/2019. Per HUNG Byers, the patient slept 8 hours the previous night. He has been fairly cooperative on the unit, withdrawn, spends much time in his room, but not grandiose, not talking about being the son of Edmond. REVIEW OF SYSTEMS: No CV, , pulmonary, eye, ENT system symptoms on review. Reliability is fair. MENTAL STATUS EXAM: Reasonably oriented. Speech has some latency, coherent. Abstraction is fair. Computation is impaired. Language function is intact. Attention span is short. Mood and affect remain somewhat withdrawn. LABORATORY DATA: Reviewed. IMPRESSION: Unchanged from initial note. PLAN: No change from initial note. MAN Amarilis ASHFORD MD DR: JULIAN/hemal JOB#: [id number] / [id number]
[2019-03-22] MEDS: NICOTINE 21MG PATCH. TD SCH (08:04)
[2019-03-22] MEDS: CELECOXIB 100 MG CAPSULE PO SCH (08:05)
[2019-03-22] MEDS: HALOPERIDOL 5 MG TABLET PO SCH ×2 (08:05→21:14)
[2019-03-22] MEDS: DOCUSATE SODIUM 100 MG CAPSULE PO SCH ×2 (08:05→21:13)
[2019-03-22] MEDS: PANTOPRAZOLE 40 MG TABLET. PO SCH (08:05)
[2019-03-22] MEDS: buPROPion XL 150 MG TAB.ER.24H PO SCH (08:05)
[2019-03-22] MEDS: SERTRALINE 100 MG TABLET. PO SCH (08:06)
[2019-03-22] MEDS: SIMETHICONE 80 MG TAB.CHEW PO SCH ×3 (08:06→21:14)
[2019-03-22] MEDS: MULTIVITAMIN with MINERAL TABLET. PO SCH (08:06)
[2019-03-22] MEDS: CHOLECALCIFEROL (VITAMIN D3) 1,000 UNIT TABLET PO SCH (08:06)
[2019-03-22] MEDS: ASPIRIN ENTERIC COATED 81 MG TABLET.DR. PO SCH (08:06)
--- NOTE | 2019-03-22 10:03 | NUR ---
Nursing note: Pt in dining room for morning meds and assessment. He was compliant with his meds whole and cooperative with his assessment. He continues to complain of discomfort from rod, but it continues to drain clear, yellow urine. Securing device was replaced with a new one and more slack in the catheter was provided. Pt immediately stated it felt more comfortable. He remains in his room at this time. Will continue to monitor.
--- NOTE | 2019-03-22 10:28 | NUR ---
SAMIRA contacted SAMIRA Lopez at [facility] on [address], to let him know pt. would be ready for discharge on 03/24/2019. SAMIRA also discussed pt. need for a follow up appointment with a urologist. John reports he will set up this appointment for pt. Addendum: 03/22/19 at 1205 by KRISTY HOGAN SAMIRA faxed updated pt. notes to John in preparation of discharge.
[2019-03-22] MEDS: NICOTINE POLACRILEX GUM 2 MG GUM. BC PRN (14:28)
[2019-03-22 15:58] VITALS: BP 140/91
--- NOTE | 2019-03-22 20:54 | PDOC ---
Exam Note: Rafael Note: Please also refer to the separate dictated note~for this date of service dictated separately.~Patient seen individually. Discussed the patient with Nursing staff reviewed the chart.~Reviewed interim history and current functioning. Reviewed vital signs,~Labs/ Radiology~and current medications noted below. Continue current treatment with the changes noted in the dictated addendum note Assessment: Vital Signs/I&O: Vital Signs Date Time Temp Pulse Resp B/P (MAP) Pulse Ox O2 Delivery O2 Flow Rate FiO2 03/22/19 15:58 98.1 73 16 140/91 (107) 98 03/22/19 05:14 Room Air I & O 03/21/19 03/21/19 03/22/19 15:00 23:00 07:00 Intake Total 1080 ml 720 ml Output Total 400 ml 2525 ml 3150 ml Balance 680 ml -1805 ml -3150 ml Labs: Laboratory Tests Test 03/22/19 06:10 White Blood Count 7.7 x10^3/uL (4.0-11.0) Red Blood Count 4.34 x10^6/uL (4.30-5.70) Hemoglobin 13.8 g/dL (13.0-17.5) Hematocrit 41.0 % (39.0-53.0) Mean Corpuscular Volume 95 fL (79-100) Mean Corpuscular Hemoglobin 32 pg (25-35) Mean Corpuscular Hemoglobin Concent 34 g/dL (31-37) Red Cell Distribution Width 13.4 % (11.5-14.5) Platelet Count 217 x10^3/uL (140-400) Neutrophils (%) (Auto) 65 % (31-73) Lymphocytes (%) (Auto) 24 % (24-48) Monocytes (%) (Auto) 8 % (0-9) Eosinophils (%) (Auto) 2 % (0-3) Basophils (%) (Auto) 1 % (0-3) Neutrophils # (Auto) 5.0 x10^3uL (1.8-7.7) Lymphocytes # (Auto) 1.9 x10^3/uL (1.0-4.8) Monocytes # (Auto) 0.6 x10^3/uL (0.0-1.1) Eosinophils # (Auto) 0.1 x10^3/uL (0.0-0.7) Basophils # (Auto) 0.0 x10^3/uL (0.0-0.2) Sodium Level 139 mmol/L (136-145) Potassium Level 4.4 mmol/L (3.5-5.1) Chloride Level 105 mmol/L (98-107) Carbon Dioxide Level 24 mmol/L (21-32) Anion Gap 10 (6-14) Blood Urea Nitrogen 20 mg/dL (8-26) Creatinine 1.0 mg/dL (0.7-1.3) Estimated GFR (Cockcroft-Gault) 76.7 BUN/Creatinine Ratio 20 (6-20) Glucose Level 96 mg/dL (70-99) Calcium Level 9.0 mg/dL (8.5-10.1) Total Bilirubin 0.2 mg/dL (0.2-1.0) Aspartate Amino Transferase (AST) 21 U/L (15-37) Alanine Aminotransferase (ALT) 38 U/L (16-63) Alkaline Phosphatase 108 U/L (46-116) Total Protein 7.0 g/dL (6.4-8.2) Albumin 3.4 g/dL (3.4-5.0) Albumin/Globulin Ratio 0.9 (1.0-1.7) L Current Medications: I have reviewed the current psychotropics carefully including drug interactions. Risk benefit ratio favors no change other than as noted in my dictated progress note. Diagnosis: Problems: (1) Anxiety disorder (2) Impulse control disorder (3) Schizoaffective disorder, bipolar type (4) Schizoaffective disorder, chronic condition with acute exacerbation (5) Schizophrenia, paranoid, chronic with acute exacerbation LEONARD ASHFORD MD Mar 22, 2019 20:54
[2019-03-22] MEDS: traMADol 50 MG TABLET PO SCH (21:13)
[2019-03-22] MEDS: TAMSULOSIN 0.4 MG CAP.ER.24H. PO SCH (21:13)
[2019-03-22] MEDS: ATORVASTATIN CALCIUM 10 MG TABLET. PO SCH (21:14)
[2019-03-22] MEDS: MIRTAZAPINE 7.5 MG TABLET. PO SCH (21:14)
--- NOTE | 2019-03-23 04:20 | NUR ---
Nsg Note: Patient in room at time of medication administration and assessments. Patient was calm, compliant and cooperative. Patient was complaining of some pain at the time, received scheduled Tramadol. Patient went back to sleep. No other notable behaviors at this time.
--- NOTE | 2019-03-23 05:43 | PN ---
DATE: 03/21/2019 PSYCHIATRIC PROGRESS NOTE This late entry 03/21/2019 covers elements not covered in my initial note. SUBJECTIVE: I met with the patient in the evening in his room. Per HUNG Seay, the patient slept 7-3/4 hours the previous night. He has been calm, somewhat withdrawn, and pleasant. REVIEW OF SYSTEMS: No CV, , pulmonary, eye, ENT system symptoms on review. MENTAL STATUS EXAM: Reasonably oriented. Speech is coherent, has some latency. Abstraction fair, computation impaired, language function intact. Mood and affect still withdrawn, but improved. No suicidal or homicidal ideation. LABORATORY DATA: Reviewed. IMPRESSION: Unchanged from initial note. PLAN: No change from initial note. MAN Amarilis ASHFORD MD DR: JULIAN/hemal JOB#: [id number] / [id number]
[2019-03-23] MEDS: LEVOTHYROXINE 100 MCG TABLET PO SCH (06:00)
[2019-03-23 06:39] VITALS: BP 102/78
[2019-03-23] MEDS: DOCUSATE SODIUM 100 MG CAPSULE PO SCH ×2 (08:26→20:42)
[2019-03-23] MEDS: CELECOXIB 100 MG CAPSULE PO SCH (08:26)
[2019-03-23] MEDS: CHOLECALCIFEROL (VITAMIN D3) 1,000 UNIT TABLET PO SCH (08:27)
[2019-03-23] MEDS: NICOTINE 21MG PATCH. TD SCH (08:27)
[2019-03-23] MEDS: MULTIVITAMIN with MINERAL TABLET. PO SCH (08:27)
[2019-03-23] MEDS: buPROPion XL 150 MG TAB.ER.24H PO SCH (08:27)
[2019-03-23] MEDS: HALOPERIDOL 5 MG TABLET PO SCH ×2 (08:27→20:42)
[2019-03-23] MEDS: PANTOPRAZOLE 40 MG TABLET. PO SCH (08:27)
[2019-03-23] MEDS: SIMETHICONE 80 MG TAB.CHEW PO SCH ×3 (08:27→20:42)
[2019-03-23] MEDS: ASPIRIN ENTERIC COATED 81 MG TABLET.DR. PO SCH (08:28)
[2019-03-23] MEDS: SERTRALINE 100 MG TABLET. PO SCH (08:28)
--- NOTE | 2019-03-23 10:29 | NUR ---
WEEKLY ACTIVITY THERAPY NOTE Date of Admission: 02/27/2019 Date of AT Assessment: 03/02/2019 Goal aimed: to increase engagement Initial goal: Pt. will participate in one individual session before discharge. Goal repeated on 03/09/2019 Goal changed 03/16: Pt. will participate in at least five Activity Therapy groups before discharge Weekly progress towards goal: on track 03/05 (03/22- [facility]) Group participation level: 1 mod Weekly highlights: sang and laughed during group on Wednesday Behaviors observed: left group room when group was getting set up on Wednesday morning, calm, carrying urine drainage leg bag, calm and smiles often Plan: no change to goal Beneficial adaptations: encouragement
--- NOTE | 2019-03-23 11:31 | NUR ---
[facility] Social Work Discharge Planning Form Patient Name JULIANE AYALA Admit Date: 02/27/2019 DISCHARGE PLAN Discharge Destination: [facility] [address] Care Assessment: NA Level II Assessment: NA Transportation: [facility] [address] to transport pt. on 03/24/2019 between 1400 and 1600. Special Instructions/Notes: Please fax discharge paperwork and medication list to [phone]. DISCHARGE TO FACILITY Facility: [facility] [address] Address: [address] [address] Contact Name: SAMIRA Lopez PCP: Dr. Perry Psychiatrist: None Additional Information: SAMIRA Lopez at [facility] [address], to assist pt. with follow Urology appointment.
[2019-03-23] MEDS: NICOTINE POLACRILEX GUM 2 MG GUM. BC PRN (14:07)
--- NOTE | 2019-03-23 15:38 | NUR ---
Today patient has been calm, cooperative and compliant. Making conversation with nurse and participated in afternoon group. Pt expressed concerns about going tomorrow with rod. RN explained that patient will be follow up with a urologist outpatient about why he cannot urinate on own and will need to keep rod in until he sees the urologist about that. Pt verbalized understanding. Pt has improved since admission. Pt communicating needs and concerns appropriately. No delusions noted and patient denies hallucinations. Plan is to discharge tomorrow, continue with medication management.
[2019-03-23 16:16] VITALS: BP 130/83
[2019-03-23] MEDS: MIRTAZAPINE 7.5 MG TABLET. PO SCH (20:42)
[2019-03-23] MEDS: traMADol 50 MG TABLET PO SCH (20:42)
[2019-03-23] MEDS: TAMSULOSIN 0.4 MG CAP.ER.24H. PO SCH (20:42)
[2019-03-23] MEDS: ATORVASTATIN CALCIUM 10 MG TABLET. PO SCH (20:43)
--- NOTE | 2019-03-23 21:04 | PDOC ---
Exam Note: Rafael Note: Please also refer to the separate dictated note~for this date of service dictated separately.~Patient seen individually. Discussed the patient with Nursing staff reviewed the chart.~Reviewed interim history and current functioning. Reviewed vital signs,~Labs/ Radiology~and current medications noted below. Continue current treatment with the changes noted in the dictated addendum note Assessment: Vital Signs/I&O: Vital Signs Date Time Temp Pulse Resp B/P (MAP) Pulse Ox O2 Delivery O2 Flow Rate FiO2 03/23/19 20:42 16 96 Room Air 03/23/19 16:16 98.3 77 130/83 (99) I & O 03/22/19 03/22/19 03/23/19 15:00 23:00 07:00 Intake Total 1140 ml 480 ml Output Total 245 ml 2425 ml 1750 ml Balance 895 ml -1945 ml -1750 ml Current Medications: I have reviewed the current psychotropics carefully including drug interactions. Risk benefit ratio favors no change other than as noted in my dictated progress note. Diagnosis: Problems: (1) Anxiety disorder (2) Impulse control disorder (3) Schizoaffective disorder, bipolar type (4) Schizoaffective disorder, chronic condition with acute exacerbation LEONARD ASHFORD MD Mar 23, 2019 21:04
--- NOTE | 2019-03-24 01:07 | PN ---
DATE: 03/22/2019 PSYCHIATRIC PROGRESS NOTE This late entry 03/22/2019 covers elements not covered in my initial note. SUBJECTIVE: I met with the patient in the evening of 03/22/2019. Per HUNG Younger, the patient slept 6-1/4 hours. He gets a little isolative in his room, but otherwise appropriate and per nursing report has done much better. REVIEW OF SYSTEMS: No CV, , pulmonary, eye system symptoms on review. MENTAL STATUS EXAM: Reasonably oriented. Speech is coherent, abstraction fair, computation impaired, language function intact, attention span fair. Mood and affect is improved. LABORATORY DATA: Reviewed. IMPRESSION: Unchanged from initial note. PLAN: No change from initial note. MAN Amarilis ASHFORD MD DR: JULIAN/hemal JOB#: [id number] / [id number]
--- NOTE | 2019-03-24 01:14 | NUR ---
Nsg Note: Patient was in bedroom at time of medication administration and assessments. Calm, cooperative and compliant with all cares. No other notable behaviors at this time.
[2019-03-24] MEDS: ACETAMINOPHEN 325 MG TABLET PO PRN (01:17)
[2019-03-24] MEDS ORDERED: MAG-95 PO (01:55)
[2019-03-24] MEDS ORDERED: MAGN2400 PO (01:56)
[2019-03-24] MEDS ORDERED: METH57CR17 TP (02:00)
[2019-03-24] MEDS ORDERED: NICO1PAT21 TD (02:01)
[2019-03-24] MEDS ORDERED: MIRT7.5T8 PO (02:01)
[2019-03-24] MEDS ORDERED: PANT40TA5 PO (02:02)
[2019-03-24] MEDS ORDERED: TAMS0.4C97 PO (02:03)
[2019-03-24] MEDS ORDERED: TRAZ-120 PO (02:03)
[2019-03-24] MEDS: LEVOTHYROXINE 100 MCG TABLET PO SCH (05:50)
[2019-03-24 06:20] VITALS: BP 111/78
[2019-03-24] MEDS: NICOTINE 21MG PATCH. TD SCH (07:57)
[2019-03-24] MEDS: ASPIRIN ENTERIC COATED 81 MG TABLET.DR. PO SCH (07:57)
[2019-03-24] MEDS: CELECOXIB 100 MG CAPSULE PO SCH (07:58)
[2019-03-24] MEDS: DOCUSATE SODIUM 100 MG CAPSULE PO SCH (07:58)
[2019-03-24] MEDS: CHOLECALCIFEROL (VITAMIN D3) 1,000 UNIT TABLET PO SCH (07:58)
[2019-03-24] MEDS: MULTIVITAMIN with MINERAL TABLET. PO SCH (07:58)
[2019-03-24] MEDS: HALOPERIDOL 5 MG TABLET PO SCH (07:58)
[2019-03-24] MEDS: SERTRALINE 100 MG TABLET. PO SCH (07:59)
[2019-03-24] MEDS: PANTOPRAZOLE 40 MG TABLET. PO SCH (07:59)
[2019-03-24] MEDS: buPROPion XL 150 MG TAB.ER.24H PO SCH (07:59)
[2019-03-24] MEDS: SIMETHICONE 80 MG TAB.CHEW PO SCH ×2 (08:00→13:10)
--- NOTE | 2019-03-24 15:50 | NUR ---
Tobacco Discharge Note [facility] Tobacco Hotline called with patient prior to discharge, YES Tobacco cessation medication listed with current medications for discharge. YES Transition Record was faxed to follow-up provider with the following elements: Reason for admission, procedures, tests, principal diagnosis, pending studies, patient instructions, 21/09 contact information for unit, phone number to obtain pending test results, plan for follow-up care, physician follow-up, advanced directive information, and medication list with dose, duration and instructions. This information was included in the following documents: History and physical, lab results, study results, progress notes, social work planning form, DC instruction form, patient visit summary, and medication reconciliation form. Date & time record faxed: 03/24/19 1100 Record faxed to: [facility] Record discussed with/ report given to: written report given Addendum: 03/31/19 at 1927 by LILLI JOHN RN Record discussed with/report given to: Discussed with patient
[2019-03-24 16:00] VITALS: BP 155/98
--- NOTE | 2019-03-24 20:54 | PDOC ---
Exam Note: Rafael Note: Please also refer to the separate dictated note~for this date of service dictated separately.~Patient seen individually. Discussed the patient with Nursing staff reviewed the chart.~Reviewed interim history and current functioning. Reviewed vital signs,~Labs/ Radiology~and current medications noted below. Continue current treatment with the changes noted in the dictated addendum note Assessment: Vital Signs/I&O: Vital Signs Date Time Temp Pulse Resp B/P (MAP) Pulse Ox O2 Delivery O2 Flow Rate FiO2 03/24/19 16:00 97.3 78 20 155/98 (117) 97 03/23/19 22:21 Room Air I & O 03/23/19 03/23/19 03/24/19 15:00 23:00 07:00 Intake Total 360 ml 720 ml Balance 360 ml 720 ml Current Medications: I have reviewed the current psychotropics carefully including drug interactions. Risk benefit ratio favors no change other than as noted in my dictated progress note. Diagnosis: Problems: (1) Anxiety disorder (2) Impulse control disorder (3) Schizoaffective disorder, bipolar type (4) Schizoaffective disorder, chronic condition with acute exacerbation (5) Schizophrenia, paranoid, chronic with acute exacerbation LEONARD ASHFORD MD Mar 24, 2019 20:54
--- NOTE | 2019-03-26 18:14 | DS ---
DATE OF DISCHARGE: 03/24/2019 PSYCHIATRIC PROGRESS NOTE/DISCHARGE SUMMARY This late entry 03/24/2019 covers elements not covered in my initial note. REASON FOR ADMISSION: Please refer to the admission history for details. Briefly, the patient is a 58-year-old male referred to us from [facility] on [address] in [facility] by his primary care physician and psychiatrist on account of an acute exacerbation of his schizoaffective disorder, bipolar type, mixed with psychotic features. The patient had become aggressive with staff thinking he was God and do what he wants to. He was grandiose, hyperactive, hyperverbal, delusional, had failed outpatient psychiatric interventions. Behaviors were deemed dangerous at the facility and referred for inpatient psychiatric stabilization. SIGNIFICANT FINDINGS AND CLINICAL COURSE: Following admission, the patient was seen daily individually by myself from a psychiatric standpoint, medical followup with Dr. Hall. He is quite grandiose, felt he was the son of [place]mond, delusional, hyperverbal, intrusive. Adjustments were made in his psychotropics. He seemed to respond to a combination of Haldol Decanoate, which was continued at 100 mg q. 14 days, oral Haldol 5 mg daily and 10 mg at bedtime, Zoloft 100 mg a day, trazodone 50 mg at bedtime p.r.n., Remeron 7.5 mg at bedtime. His Depakote was adjusted to reach therapeutic level of 58. He is also on Wellbutrin-XL 300 mg a day and Depo-Provera 150 mg IM q. 3 months and this was continued from prehospitalization. REVIEW OF SYSTEMS: Prior to discharge on 03/24/2019, no CV, , pulmonary, eye, ENT system symptoms on review. He is less withdrawn. MENTAL STATUS EXAM: Oriented reasonably. Speech has some latency, coherent. Abstraction fair, computation somewhat impaired, language function intact, attention span short. Mood and affect less withdrawn. No psychotic symptoms. Much improved. No suicidal ideation. CONDITION AT DISCHARGE: Improved. FINAL DIAGNOSES: Schizoaffective disorder, bipolar type, mixed with psychotic features, in partial remission; anxiety disorder, unspecified; impulse control disorder, unspecified, schizophrenia, chronic paranoid with acute exacerbation, in partial remission. Rest unchanged. DISCHARGE MEDICATIONS: Please refer to the [facility]AD. Outpatient psychiatric and medical followup at the [facility]. During the latter part of the hospitalization, the patient's ammonia level was elevated and the Depakote was discontinued. Psychotic symptoms appear to have subsided just with the adjustment of the Haldol and this is how it should continue, but if he needs a mood stabilizer in the future, an option may be Tegretol since lithium is best avoided with the dosage of Haldol he is taking to avoid Haldol, lithium interaction. Time for discharge day management greater than 30 minutes. MAN Amarilis ASHFORD MD DR: JULIAN/hemal JOB#: [id number] / [id number]
--- NOTE | 2019-03-27 00:21 | PN ---
DATE: 03/23/2019 PSYCHIATRIC PROGRESS NOTE This late entry 03/23/2019 covers elements not covered in my initial note. SUBJECTIVE: I met with the patient in the evening and staffed at a treatment team meeting earlier in the day. Reviewed the patient's history, progress. Appetite 100%, sleeping 6 hours average. He is less withdrawn, less psychotic. REVIEW OF SYSTEMS: No CV, , pulmonary, eye system symptoms on review, does complain of some tiredness. MENTAL STATUS EXAM: Reasonably oriented. Speech has some latency, coherent. Abstraction fair, computation impaired, language function intact. Mood and affect is improved. He is not overtly paranoid, more cognitively intact. LABORATORY DATA: Reviewed. IMPRESSION: Unchanged from initial note. PLAN: No change from initial note with possible discharge 03/24/2019 to half-way. MAN Amarilis ASHFORD MD DR: JULIAN/hemal JOB#: [id number] / [id number]
[2019-04-25] MEDS ORDERED: medroxyPROGESTERone IM 150 MG/ML VIAL. IM ONE (08:30)
== END 2019-03-24 16:13 | DRG 885 ==
LOC: ER 14:45 → GEROPSY 18:29
PROVIDERS: ADMIT Psychiatry & Neurology Psychiatry; ATTEND Psychiatry & Neurology Psychiatry
DX: F25.0 Schizoaffective disorder, bipolar type (principal); E03.9 Hypothyroidism, unspecified; E05.20 Thyrotoxicosis with toxic multinodular goiter without thyrotoxic crisis or storm; F17.210 Nicotine dependence, cigarettes, uncomplicated; F63.9 Impulse disorder, unspecified; G24.01 Drug induced subacute dyskinesia; G89.29 Other chronic pain; F41.9 Anxiety disorder, unspecified; R63.1 Polydipsia; I10 Essential (primary) hypertension; J44.9 Chronic obstructive pulmonary disease, unspecified; K21.9 Gastro-esophageal reflux disease without esophagitis; K59.00 Constipation, unspecified; Z66 Do not resuscitate; Z79.1 Long term (current) use of non-steroidal anti-inflammatories (NSAID); Z88.8 Allergy status to other drugs, medicaments and biological substances
CPT/HCPCS: 36415; 71045; 80048; 80053; 80061; 80164; 80307; 81001; 82140; 82306; 82607; 82947; 83036; 83540; 83550; 83605; 83735; 84436; 84443; 84480; 85025; 85027; 86592; 93005; 94640; 99407; G0480; J1631; J7613; 97116; 99285-25; J7030

== ENCOUNTER 2019-07-10 14:19 | Inpatient (IN) | payer MEDICARE, MEDICAID ==
[~2019-07-10] VITALS: Ht 188 cm; Wt 102.7 kg
[~2019-07-10 14:19] MED LIST: ACET325T21 PO; ASPI-612 PO; ATOR10TA60 PO; BENZ0.5T32 PO; BISA5TAB4 PO; BUPR-192 PO; CELE100C PO; CHOL200078 PO; DIVA500T2 PO; DOCU-109 PO; FLUT1DIS IH; FURO20TA3 PO; HALO100A2 IM; HALO5TAB PO; LEVO100T5 PO; MAG-95 PO; MAGN24003 PO; MEDR150D3 IM; METH57CR17 TP; MIRT7.5T8 PO; MULT-114 PO; NICO1PAT21 TD; OMEP20CA16 PO; PANT40TA5 PO; SERT100T PO; SIME80TA14 PO; TAMS0.4C97 PO; TRAM50TA PO; TRAZ-120 PO
--- NOTE | 2019-07-10 14:52 | PHYS DOC ---
Past History Past Medical History: Bipolar, COPD, GERD, Hypertension, Hypothyroid, Schizophrenia, Other Additional Past Medical Histor: POLYDIPSIA Past Surgical History: No Surgical History Alcohol Use: None Drug Use: None General Adult EDM: Chief Complaint: MEDICAL CLEARANCE HPI: HPI: Patient is a 58-year-old male sent to the emergency department for medical clearance for [facility] behavioral unit admission. According to report he has been exhibiting verbally aggressive behavior towards other residents. He also admits to a cough. He denies any fevers. He was reportedly swab negative for COVID- 19. He is a smoker. There are no alleviating or exacerbating factors to his symptoms. Review of Systems: Review of Systems: Constitutional: Denies fever or chills Eyes: Denies change in visual acuity HENT: Denies nasal congestion or sore throat Respiratory: Denies shortness of breath Cardiovascular: Denies chest pain or edema GI: Denies abdominal pain, nausea, vomiting, bloody stools or diarrhea : Denies dysuria Musculoskeletal: Denies back pain or joint pain Integument: Denies rash Neurologic: Denies headache, focal weakness or sensory changes Endocrine: Denies polyuria or polydipsia Lymphatic: Denies swollen glands Psychiatric: Denies depression or anxiety Heart Score: Risk Factors: Risk Factors: DM, Current or recent (<one month) smoker, HTN, HLP, family history of CAD, obesity. Risk Scores: Score 0 - 3: 2.5% MACE over next 6 weeks - Discharge Home Score 4 - 6: 20.3% MACE over next 6 weeks - Admit for Clinical Observation Score 7 - 10: 72.7% MACE over next 6 weeks - Early Invasive Strategies Allergies: Allergies: Allergies Coded Allergies Type Severity Reaction Last Updated Verified blueberry Allergy Unknown 02/27/19 Yes Physical Exam: PE: PHYSICAL EXAM: CONSTITUTIONAL: Well developed, well nourished HEAD: normocephalic, atraumatic EENT: PERRL, EOMI. Conjunctivae normal color, sclerae non-icteric; moist mucous membranes. NECK: Supple, non-tender; no meningismus. LUNGS: Scattered expiratory wheezing, breathing even and unlabored. Normal air movement. HEART: Regular rate and rhythm, no murmur CHEST: No deformity; non-tender ABDOMEN: The abdomen is soft, and non-tender, no masses or bruits. EXTREM: Normal ROM; no deformity, no calf tenderness. Normal pulses palpable in all extremities. There is no pedal edema. SKIN: No rash; no diaphoresis NEURO: Alert; normal speech and cognition; CN's grossly intact; strength grossly intact without focal deficit. BACK: No CVA TTP. Current Patient Data: Labs: Laboratory Tests Test 07/10/19 14:45 07/10/19 15:41 White Blood Count 11.7 x10^3/uL Red Blood Count 5.26 x10^6/uL Hemoglobin 16.3 g/dL Hematocrit 48.8 % Mean Corpuscular Volume 93 fL Mean Corpuscular Hemoglobin 31 pg Mean Corpuscular Hemoglobin Concent 33 g/dL Red Cell Distribution Width 14.1 % Platelet Count 271 x10^3/uL Neutrophils (%) (Auto) 89 % Lymphocytes (%) (Auto) 8 % Monocytes (%) (Auto) 2 % Eosinophils (%) (Auto) 0 % Basophils (%) (Auto) 0 % Neutrophils # (Auto) 10.4 x10^3uL Lymphocytes # (Auto) 1.0 x10^3/uL Monocytes # (Auto) 0.3 x10^3/uL Eosinophils # (Auto) 0.0 x10^3/uL Basophils # (Auto) 0.0 x10^3/uL Sodium Level 137 mmol/L Potassium Level 4.0 mmol/L Chloride Level 98 mmol/L Carbon Dioxide Level 25 mmol/L Anion Gap 14 Blood Urea Nitrogen 16 mg/dL Creatinine 1.0 mg/dL Estimated GFR (Cockcroft-Gault) 76.7 BUN/Creatinine Ratio 16 Glucose Level 148 mg/dL Calcium Level 10.1 mg/dL Magnesium Level 1.6 mg/dL Total Bilirubin 0.3 mg/dL Aspartate Amino Transf (AST/SGOT) 30 U/L Alanine Aminotransferase (ALT/SGPT) 45 U/L Alkaline Phosphatase 183 U/L Troponin I Quantitative < 0.017 ng/mL Total Protein 8.0 g/dL Albumin 4.5 g/dL Albumin/Globulin Ratio 1.3 Urine Collection Type Unknown Urine Color Yellow Urine Clarity Clear Urine pH 7.0 Urine Specific Beyer 1.015 Urine Protein 30 mg/dl Urine Glucose (UA) Neg mg/dL Urine Ketones (Stick) Neg mg/dL Urine Blood Neg Urine Nitrite Neg Urine Bilirubin Neg Urine Urobilinogen Dipstick 0.2 mg/dL Urine Leukocyte Esterase Neg Urine RBC Occ /HPF Urine WBC Occ /HPF Urine Squamous Epithelial Cells Occ /LPF Urine Bacteria 0 /HPF Urine Opiates Screen Neg Urine Methadone Screen Neg Urine Barbiturates Neg Urine Phencyclidine Screen Neg Urine Amphetamine/Methamphetamine Neg Urine Benzodiazepines Screen Neg Urine Cocaine Screen Neg Urine Cannabinoids Screen Neg Urine Ethyl Alcohol Neg Current Medications Medications (Trade) Dose Ordered Sig/Rober Route PRN Reason Start Time Stop Time Status Last Admin Dose Admin Albuterol/ Ipratropium (Duoneb) 3 ml 1X ONCE NEB 07/10/19 15:00 07/10/19 15:01 DC 07/10/19 15:02 Albuterol/ Ipratropium (Duoneb) 3 ml STK-MED ONCE .ROUTE 07/10/19 14:55 07/10/19 14:55 DC EKG: EKG: Normal sinus rhythm at a rate of 111 bpm with rare APC, normal axis, normal intervals. There are no acute ischemic ST/T changes. [] Radiology/Procedures: Radiology/Procedures: PROCEDURE: CHEST AP ONLY EXAM: CHEST 1 VIEW History: Cough COMPARISON: None available. TECHNIQUE: Single portable radiograph of the chest FINDINGS: The cardiac silhouette is unremarkable. The lungs are clear bilaterally. The costophrenic sulci are clear and well demarcated. IMPRESSION: No radiographic evidence of an acute cardiopulmonary process. [] Course & Med Decision Making: Course & Med Decision Making Pertinent Labs and Imaging studies reviewed. (See chart for details) [] 4:30 PM patient's condition remains stable at this time. He is medically stable for admission to [facility]. Ryanne Disclaimer: Ryanne Disclaimer: This electronic medical record was generated, in whole or in part, using a voice recognition dictation system. Departure Departure: Impression: Primary Impression: Behavioral disorder Additional Impressions: Schizoaffective disorder, bipolar type Impulse control disorder Disposition: HOME/RESIDENCE PRIOR TO ADM Condition: STABLE Referrals: HENNA COMSB (PCP) LINETTE DERAS MD July 10, 2019 14:52
[2019-07-10] MEDS ORDERED: IPRATRPIUM/ALBUTEROL 0.5/2.5MG 3 ML NEBU. ONE (14:55)
[2019-07-10] MEDS ORDERED: IPRATRPIUM/ALBUTEROL 0.5/2.5MG 3 ML NEBU. NEB ONE (15:00)
--- NOTE | 2019-07-10 15:14 | RAD ---
EXAM: CHEST 1 VIEW History: Cough COMPARISON: None available. TECHNIQUE: Single portable radiograph of the chest FINDINGS: The cardiac silhouette is unremarkable. The lungs are clear bilaterally. The costophrenic sulci are clear and well demarcated. IMPRESSION: No radiographic evidence of an acute cardiopulmonary process. Electronically signed by: Kofi Felder MD (07/10/2019 3:11 PM) [id number]
--- NOTE | 2019-07-10 15:16 | EKG ---
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
[2019-07-10 15:17] LABS: BASO % 0 % (0-3); EOS % 0 % (0-3); HEMATOCRIT 48.8 % (39.0-53.0); HEMOGLOBIN 16.3 g/dL (13.0-17.5); LYMPH % 8 % (24-48); MEAN CORPUSCULAR HEMOGLOBIN 31 pg (25-35); MEAN CORPUSCULAR HGB CONC 33 g/dL (31-37); MEAN CORPUSCULAR VOLUME 93 fL (79-100); MONO # 0.3 x10^3/uL (0.0-1.1); MONO % 2 % (0-9); NEUT # 10.4 x10^3uL (1.8-7.7); NEUT % 89 % (31-73); PLATELET COUNT 271 x10^3/uL (140-400); RED BLOOD COUNT 5.26 x10^6/uL (4.30-5.70); RED CELL DISTRIBUTION WIDTH 14.1 % (11.5-14.5); WHITE BLOOD COUNT 11.7 x10^3/uL (4.0-11.0)
[2019-07-10 15:24] LABS: CALCIUM 10.1 mg/dL (8.5-10.1); GFR 76.7
[2019-07-10 15:30] LABS: ALBUMIN 4.5 g/dL (3.4-5.0); ALBUMIN/GLOBULIN RATIO 1.3 (1.0-1.7); MAGNESIUM 1.6 mg/dL (1.8-2.4); TOTAL BILIRUBIN 0.3 mg/dL (0.2-1.0)
[2019-07-10 16:07] LABS: BARBITURATES NEG (NEG); BENZODIAZEPINES NEG (NEG); CANNABINOIDS NEG (NEG); COCAINE NEG (NEG); METHADONE NEG (NEG); OPIATES NEG (NEG); PHENCYCLIDINE NEG (NEG)
[2019-07-10 16:08] LABS: AMPHETAMINE/METHAMPHETAMINE NEG (NEG)
[2019-07-10 16:25] LABS: BACTERIA,URINE 0 /HPF (0-FEW); BILIRUBIN,URINE NEG (NEG); CLARITY,URINE CLEAR; COLOR,URINE YELLOW; GLUCOSE,URINE NEG (NEG); NITRITE,URINE NEG (NEG); RBC,URINE OCC /HPF (0-2); SQUAMOUS EPITHELIAL CELL,UR OCC /LPF; UROBILINOGEN,URINE 0.2 mg/dL (0.2 mg/dL); WBC,URINE OCC /HPF (0-4)
[2019-07-10 17:57] VITALS: BP 152/100
[2019-07-10] MEDS ORDERED: METHYL SALICYLATE/MENTHOL TOPICAL OINTMENT 57GM TUBE. TP PRN (19:45)
[2019-07-10] MEDS ORDERED: ACETAMINOPHEN 325 MG TABLET PO PRN (19:45)
[2019-07-10] MEDS ORDERED: MAG HYDROX/AL HYDROX/SIMETH 30 ML ORAL.SUSP PO PRN (19:45)
[2019-07-10] MEDS ORDERED: HYDR-3166 PO (20:50)
[2019-07-10] MEDS ORDERED: GABA-585 PO (20:50)
--- NOTE | 2019-07-10 21:55 | HP ---
ADMIT DATE: 07/10/2019 ADMISSION HISTORY AND EVALUATION This note covers elements not covered in my initial note of 07/10/2019. IDENTIFYING DATA: The patient is a 58-year-old male referred to us from [facility] on [address] [place] [address] in [place], [place] for an acute exacerbation of his schizoaffective disorder, bipolar type, mixed with psychotic features. The patient had been increasingly paranoid, aggressive, hitting staff, yelling, cursing, having active hallucinations. He was verbally aggressive towards peers, threatening harm to peers, threw water on peer, urinating all over his room. He was drinking copious amount of fluids, which is something he has done during his past exacerbations of psychotic symptoms consequent to his schizoaffective disorder. The patient's behaviors were deemed dangerous, unmanageable at the facility, had failed outpatient psychiatric interventions resulting in this referral. CHIEF COMPLAINT: "nice to see you again." The patient seemed to remember me from his last hospitalization and was touching his face showing me his unkempt face that he has not shaved for some time. HISTORY OF PRESENT ILLNESS: The patient has a history of schizoaffective disorder, bipolar type. He has been residing at the above facility for some time, recently getting increasingly psychotic, aggressive. He has had sleep and appetite changes, appeared paranoid with active hallucinations. No active suicidal or homicidal ideation, though he has been threatening peers. He states he has been upset because he is not allowed to smoke as much as he wants to. As noted, the patient's behaviors have been deemed dangerous and has failed outpatient psychiatric intervention resulting in this referral. PAST PSYCHIATRIC HISTORY: As above. MEDICAL HISTORY: Positive for history of alcohol abuse, COPD, polydipsia, generalized anxiety disorder, hypertension, hypothyroidism, GERD. ACCU-CHEKS: None. DIET: Regular. MEDICATIONS: Takes medications whole, ambulates in wheelchair. LABORATORY DATA: UA on 07/10/2019 was negative. COVID screen was negative which was part of the unit protocol and was done at the detention prior to the patient's admission. CURRENT PSYCHOTROPICS: Wellbutrin ER 150 mg a day; Neurontin 100 mg 3 times a day; Haldol Decanoate 150 mg q. 2 weeks; medroxyprogesterone 150 mg/Ml, 150 mg IM every 30 days; Remeron 7.5 mg at bedtime; Zoloft 100 mg a day. FAMILY HISTORY: Noncontributory. CODE STATUS: DNR. ALLERGIES: BLUEBERRY. SOCIAL HISTORY: No history of physical, sexual, or elder abuse. Not known to be a perpetrator. He does have a history of alcohol abuse. REVIEW OF SYSTEMS: Ambulation impaired, in wheelchair. No CV, , pulmonary, eye system symptoms on review. MENTAL STATUS EXAMINATION: The patient was seen individually on audiovisual rounds evening of 07/10/2019. He is in his wheelchair, seem to recognize me. Speech has some latency, coherent. Abstraction fair, computation impaired, language function intact, attention span short. Mood and affect labile. He is paranoid, suspicious. No active suicidal or homicidal ideation. LABORATORY DATA: Reviewed. IMPRESSION: Schizoaffective disorder, bipolar type, mixed with psychotic features; anxiety disorder, unspecified; impulse control disorder, unspecified; past history of alcohol abuse. Rest as above. PLAN: Admit to Geropsychiatry Unit at [facility]. I will see the patient daily individually from a psychiatric standpoint. Medical followup with Dr. Hall. Continue the patient on his current psychotropics. Obtain past psychiatric records. Observe baseline, then make further adjustments as clinically indicated. May consider adding Depakote as a mood stabilizer. MAN Amarilis ASHFORD MD DR: JULIAN/hemal JOB#: [id number] / [id number]
[2019-07-10] MEDS: GABAPENTIN 100 MG CAPSULE. PO SCH (22:02)
[2019-07-10] MEDS: TAMSULOSIN 0.4 MG CAP.ER.24H. PO SCH (22:02)
[2019-07-10] MEDS: DOCUSATE SODIUM 100 MG CAPSULE PO SCH (22:03)
[2019-07-10] MEDS: MIRTAZAPINE 7.5 MG TABLET. PO SCH (22:03)
--- NOTE | 2019-07-10 22:05 | PDOC ---
Exam Note: Rafael Note: Please also refer to the separate dictated note~for this date of service dictated separately.~Patient seen individually. Discussed the patient with Nursing staff reviewed the chart.~Reviewed interim history and current functioning. Reviewed vital signs,~Labs/ Radiology~and current medications noted below. Continue current treatment with the changes noted in the dictated addendum note Assessment: Vital Signs/I&O: Vital Signs Date Time Temp Pulse Resp B/P (MAP) Pulse Ox O2 Delivery O2 Flow Rate FiO2 07/10/19 17:57 97.9 127 20 152/100 (117) 96 07/10/19 15:50 Room Air Labs: Laboratory Tests Test 07/10/19 14:45 07/10/19 15:41 White Blood Count 11.7 x10^3/uL (4.0-11.0) H Red Blood Count 5.26 x10^6/uL (4.30-5.70) Hemoglobin 16.3 g/dL (13.0-17.5) Hematocrit 48.8 % (39.0-53.0) Mean Corpuscular Volume 93 fL (79-100) Mean Corpuscular Hemoglobin 31 pg (25-35) Mean Corpuscular Hemoglobin Concent 33 g/dL (31-37) Red Cell Distribution Width 14.1 % (11.5-14.5) Platelet Count 271 x10^3/uL (140-400) Neutrophils (%) (Auto) 89 % (31-73) H Lymphocytes (%) (Auto) 8 % (24-48) L Monocytes (%) (Auto) 2 % (0-9) Eosinophils (%) (Auto) 0 % (0-3) Basophils (%) (Auto) 0 % (0-3) Neutrophils # (Auto) 10.4 x10^3uL (1.8-7.7) H Lymphocytes # (Auto) 1.0 x10^3/uL (1.0-4.8) Monocytes # (Auto) 0.3 x10^3/uL (0.0-1.1) Eosinophils # (Auto) 0.0 x10^3/uL (0.0-0.7) Basophils # (Auto) 0.0 x10^3/uL (0.0-0.2) Sodium Level 137 mmol/L (136-145) Potassium Level 4.0 mmol/L (3.5-5.1) Chloride Level 98 mmol/L (98-107) Carbon Dioxide Level 25 mmol/L (21-32) Anion Gap 14 (6-14) Blood Urea Nitrogen 16 mg/dL (8-26) Creatinine 1.0 mg/dL (0.7-1.3) Estimated GFR (Cockcroft-Gault) 76.7 BUN/Creatinine Ratio 16 (6-20) Glucose Level 148 mg/dL (70-99) H Calcium Level 10.1 mg/dL (8.5-10.1) Magnesium Level 1.6 mg/dL (1.8-2.4) L Total Bilirubin 0.3 mg/dL (0.2-1.0) Aspartate Amino Transferase (AST) 30 U/L (15-37) Alanine Aminotransferase (ALT) 45 U/L (16-63) Alkaline Phosphatase 183 U/L (46-116) H Troponin I Quantitative < 0.017 ng/mL (0-0.055) Total Protein 8.0 g/dL (6.4-8.2) Albumin 4.5 g/dL (3.4-5.0) Albumin/Globulin Ratio 1.3 (1.0-1.7) Urine Collection Type Unknown Urine Color Yellow Urine Clarity Clear Urine pH 7.0 Urine Specific [place] 1.015 Urine Protein 30 mg/dl (NEG-TRACE) Urine Glucose (UA) Neg mg/dL (NEG) Urine Ketones (Stick) Neg mg/dL (NEG) Urine Blood Neg (NEG) Urine Nitrite Neg (NEG) Urine Bilirubin Neg (NEG) Urine Urobilinogen Dipstick 0.2 mg/dL (0.2 mg/dL) Urine Leukocyte Esterase Neg (NEG) Urine RBC Occ /HPF (0-2) Urine WBC Occ /HPF (0-4) Urine Squamous Epithelial Cells Occ /LPF Urine Bacteria 0 /HPF (0-FEW) Urine Opiates Screen Neg (NEG) Urine Methadone Screen Neg (NEG) Urine Barbiturates Neg (NEG) Urine Phencyclidine Screen Neg (NEG) Urine Amphetamine/Methamphetamine Neg (NEG) Urine Benzodiazepines Screen Neg (NEG) Urine Cocaine Screen Neg (NEG) Urine Cannabinoids Screen Neg (NEG) Urine Ethyl Alcohol Neg (NEG) Current Medications: Meds: Current Medications Medications (Trade) Dose Ordered Sig/Rober Route PRN Reason Start Time Stop Time Status Last Admin Dose Admin Albuterol/ Ipratropium (Duoneb) 3 ml 1X ONCE NEB 07/10/19 15:00 07/10/19 15:01 DC 07/10/19 15:02 Docusate Sodium (Colace) 100 mg BID PO 07/10/19 21:00 07/10/19 22:03 Mirtazapine (Remeron) 7.5 mg QHS PO 07/10/19 21:00 07/10/19 22:03 Tamsulosin HCl (Flomax) 0.4 mg QHS PO 07/10/19 21:00 07/10/19 22:02 Gabapentin (Neurontin) 100 mg TID PO 07/10/19 21:00 07/10/19 22:02 I have reviewed the current psychotropics carefully including drug interactions. Risk benefit ratio favors no change other than as noted in my dictated progress note. Diagnosis: Problems: (1) Anxiety disorder (2) Impulse control disorder (3) Schizoaffective disorder, bipolar type (4) Schizoaffective disorder, chronic condition with acute exacerbation (5) Schizophrenia, paranoid, chronic with acute exacerbation LEONARD ASHFORD MD July 10, 2019 22:05
[2019-07-11] MEDS: LEVOTHYROXINE 100 MCG TABLET PO SCH (05:27)
[2019-07-11] MEDS: HYDROcodone/APAP 7.5/325MG 1 TAB TABLET PO PRN ×2 (05:31→13:05)
[2019-07-11 05:52] VITALS: BP 146/91
[2019-07-11] MEDS: GABAPENTIN 100 MG CAPSULE. PO SCH ×3 (08:51→20:32)
[2019-07-11] MEDS: ASPIRIN ENTERIC COATED 81 MG TABLET.DR. PO SCH (08:52)
[2019-07-11] MEDS: CELECOXIB 100 MG CAPSULE PO SCH (08:52)
[2019-07-11] MEDS: MULTIVITAMIN with MINERAL TABLET. PO SCH (08:52)
[2019-07-11] MEDS: buPROPion XL 150 MG TAB.ER.24H PO SCH (08:52)
[2019-07-11] MEDS: PANTOPRAZOLE 40 MG TABLET. PO SCH (08:52)
[2019-07-11] MEDS: SERTRALINE 100 MG TABLET. PO SCH (08:52)
[2019-07-11] MEDS: DOCUSATE SODIUM 100 MG CAPSULE PO SCH ×2 (08:52→20:31)
[2019-07-11] MEDS: CHOLECALCIFEROL (VITAMIN D3) 1,000 UNIT TABLET PO SCH (08:53)
[2019-07-11] MEDS: NICOTINE 14MG PATCH. TD SCH (08:56)
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
[2019-07-11 16:08] VITALS: BP 142/89
[2019-07-11 19:15] LABS: THYROID STIM HORMONE (TSH) 0.559 uIU/mL (0.358-3.740)
--- NOTE | 2019-07-11 20:12 | CONS ---
DATE OF CONSULTATION: REASON FOR CONSULTATION: Medical management. HISTORY OF PRESENT ILLNESS: The patient is a 58-year-old male patient, a resident at [facility] on [address] [place] [address], who apparently self-signed himself to [facility] as he apparently has been drinking lots of fluids with intent to washing out his medication. Has been aggressive, hitting staff, yelling, cursing, hallucinating, verbally aggressive towards peers, threatening harm to peer through water on peer, urinating all over his room. He has been also sexually inappropriate. He was also lying in bed with no pants. All this in a background of schizoaffective disorder, bipolar type, mixed with psychotic features; anxiety disorder, unspecified; impulse control disorder as well as schizophrenia, chronic paranoid with acute exacerbation. PAST MEDICAL HISTORY: Significant for chronic low back pain, polydipsia, abnormal gait and mobility subacute dyskinesia, hypothyroidism, chronic obstructive pulmonary disease, nicotine dependence, gastroesophageal reflux disease, thyrotoxicosis with toxic multinodular goiter without thyrotoxic crisis or storm. PAST SURGICAL HISTORY: Unremarkable. FAMILY HISTORY: Also noncontributory. SOCIAL HISTORY: He is a resident at [facility] on [address] [place] [address]. He apparently continues to smoke heavily, but does not drink alcohol or use any recreational drugs. REVIEW OF SYSTEMS: The patient denied any complaint. ALLERGIES: He is allergic to BLUEBERRY. MEDICATIONS: He is currently on following medications: He is on Flomax 0.4 mg at bedtime, aspirin 81 mg once a day, Celebrex 200 mg daily, hydrocodone/APAP 7.5/325 one tablet every 4 hours, Tylenol 650 mg every 4 hours, gabapentin 100 mg 3 times a day and buspirone for Wellbutrin-XL 300 mg with breakfast, mirtazapine 7.5 mg at bedtime, sertraline for Zoloft 100 mg daily. He is on Haldol Decanoate 100 mg/mL intramuscular every 2 weeks, Colace 100 mg twice a day, Protonix 40 mg once a day, medroxyprogesterone acetate he gets 150 mg/mL intramuscular every 3 months. He is on levothyroxine sodium 100 mcg once a day, ergocalciferol vitamin D 2000 units once a day, multivitamin with mineral 1 tablet once a day. PHYSICAL EXAMINATION: GENERAL: When I saw him this afternoon, he was resting slightly propped up in bed, in no apparent distress. There was no pallor, jaundice, cyanosis or thyromegaly. No jugular venous distention. No lower limb edema. VITAL SIGNS: His heart rate was 85, blood pressure was 142/89, temperature was 97.8, respiratory rate was 18 and oxygen saturation was 94%. The rest of clinic exam is stable. NEUROLOGIC: He apparently unsteady in his gait and he is mostly wheelchair bound. LABORATORY DATA: Showed his white cell count 11,700, hemoglobin 16, hematocrit 48, MCV 93, and platelet count of 271,000. His chemistry showed a serum sodium 137, potassium 4, chloride 98, bicarbonate 25, anion gap of 14, BUN 16, creatinine 1, estimated GFR was 77 mL per minute. His glucose 148, calcium was 7.1, magnesium was 1.6. Total bilirubin, AST, ALT were normal. Alkaline phosphatase slightly elevated at 183. His total protein was 8, albumin was 4.5. Urinalysis was essentially unremarkable. He has a small amount of protein, but then urine was negative for ketones, blood, nitrite and leukocyte esterase. There are no rbc's and no wbc's and no bacteria. His toxic screen was essentially negative. He has had a chest x-ray showed the cardiac silhouette is unremarkable. The lungs are clear bilaterally. The costophrenic sulci are clear and well demarcated. IMPRESSION: In summary, this is a 58-year-old male patient who self-signed as he has been drinking lots of fluid to washout his medication, aggressive, hitting staff, yelling, cursing, hallucinating, verbally aggressive towards peers, threatening harm to peer through water on peer and urinating all over. He is apparently more sexually inappropriate. However, medically, he seemed to be stable. All his vital signs are so far stable. His blood pressure is borderline elevated. His lab work showed that he has mild leukocytosis with a white cell count 11,700, however, his hemoglobin, hematocrit and platelets are all within normal range. His chemistry also was unremarkable except his slightly elevated blood sugar. His calcium was elevated; however, corrected for albumin is normal. He has hypomagnesemia and slightly elevated alkaline phosphatase. PLAN: My plan is obviously to continue with all his current medications: He is known to have history of thyrotoxicosis. Unfortunately, most of his other labs that are still pending at the time of this dictation. I will definitely get Dr. Estrada to follow his particularly thyroid function and total T4 and free T4 as he might require adjustments of that. Thank you, Dr. Bey for allowing me to participate in the care of this patient. EVGENY ZAVALA MD DR: VAHID/hemal JOB#: [id number] / [id number]
[2019-07-11] MEDS: ACETAMINOPHEN 325 MG TABLET PO PRN (20:31)
[2019-07-11] MEDS: TAMSULOSIN 0.4 MG CAP.ER.24H. PO SCH (20:31)
[2019-07-11] MEDS: MIRTAZAPINE 7.5 MG TABLET. PO SCH (20:32)
--- NOTE | 2019-07-11 22:28 | PDOC ---
Exam Note: Rafael Note: Please also refer to the separate dictated note~for this date of service dictated separately.~Patient seen individually. Discussed the patient with Nursing staff reviewed the chart.~Reviewed interim history and current functioning. Reviewed vital signs,~Labs/ Radiology~and current medications noted below. Continue current treatment with the changes noted in the dictated addendum note Assessment: Vital Signs/I&O: Vital Signs Date Time Temp Pulse Resp B/P (MAP) Pulse Ox O2 Delivery O2 Flow Rate FiO2 07/11/19 20:38 98.1 96 07/11/19 16:08 85 18 142/89 (106) 07/10/19 15:50 Room Air I & O 07/10/19 07/10/19 07/11/19 15:00 23:00 07:00 Intake Total 360 ml Balance 360 ml Current Medications: Meds: Current Medications Medications (Trade) Dose Ordered Sig/Rober Route PRN Reason Start Time Stop Time Status Last Admin Dose Admin Nicotine (Nicoderm Cq 14mg) 1 patch DAILY TD 07/11/19 09:00 07/11/19 08:56 Aspirin (Aspirin Enteric Coated) 81 mg DAILY PO 07/11/19 09:00 07/11/19 08:52 Bupropion HCl (Wellbutrin Xl) 300 mg DAILYWBKFT PO 07/11/19 08:00 07/11/19 08:52 Celecoxib (CeleBREX) 200 mg DAILY PO 07/11/19 09:00 07/11/19 08:52 Levothyroxine Sodium (Synthroid) 100 mcg DAILY06 PO 07/11/19 06:00 07/11/19 05:27 Pantoprazole Sodium (Protonix) 40 mg DAILYAC PO 07/11/19 07:30 07/11/19 08:52 Sertraline HCl (Zoloft) 100 mg DAILY PO 07/11/19 09:00 07/11/19 08:52 Vitamin D (Vitamin D3) 2,000 unit DAILY PO 07/11/19 09:00 07/11/19 08:53 Multivitamins/ Calcium (Thera-M Plus) 1 tab DAILY PO 07/11/19 09:00 07/11/19 08:52 I have reviewed the current psychotropics carefully including drug interactions. Risk benefit ratio favors no change other than as noted in my dictated progress note. Diagnosis: Problems: (1) Anxiety disorder (2) Impulse control disorder (3) Schizoaffective disorder, bipolar type (4) Schizoaffective disorder, chronic condition with acute exacerbation (5) Schizophrenia, paranoid, chronic with acute exacerbation LEONARD ASHFORD MD July 11, 2019 22:28
[2019-07-12 03:55] LABS: HEMOGLOBIN A1C 5.5 % (4.8-5.6); THYROXINE 10.2 ug/dL (4.5-12.0)
[2019-07-12] MEDS: LEVOTHYROXINE 100 MCG TABLET PO SCH (05:49)
[2019-07-12 06:27] VITALS: BP 131/94
[2019-07-12] MEDS: PANTOPRAZOLE 40 MG TABLET. PO SCH (08:52)
[2019-07-12] MEDS: GABAPENTIN 100 MG CAPSULE. PO SCH ×3 (08:52→20:53)
[2019-07-12] MEDS: MULTIVITAMIN with MINERAL TABLET. PO SCH (08:52)
[2019-07-12] MEDS: ASPIRIN ENTERIC COATED 81 MG TABLET.DR. PO SCH (08:52)
[2019-07-12] MEDS: SERTRALINE 100 MG TABLET. PO SCH (08:52)
[2019-07-12] MEDS: DOCUSATE SODIUM 100 MG CAPSULE PO SCH ×2 (08:52→20:53)
[2019-07-12] MEDS: CELECOXIB 100 MG CAPSULE PO SCH (08:53)
[2019-07-12] MEDS: buPROPion XL 150 MG TAB.ER.24H PO SCH (08:53)
[2019-07-12] MEDS: CHOLECALCIFEROL (VITAMIN D3) 1,000 UNIT TABLET PO SCH (08:53)
[2019-07-12] MEDS: NICOTINE 14MG PATCH. TD SCH (08:54)
[2019-07-12 09:03] LABS: BASO % 1 % (0-3); EOS # 0.1 x10^3/uL (0.0-0.7); EOS % 1 % (0-3); HEMATOCRIT 44.8 % (39.0-53.0); LYMPH # 1.5 x10^3/uL (1.0-4.8); LYMPH % 22 % (24-48); MEAN CORPUSCULAR HEMOGLOBIN 31 pg (25-35); MEAN CORPUSCULAR HGB CONC 33 g/dL (31-37); MEAN CORPUSCULAR VOLUME 92 fL (79-100); MONO # 0.4 x10^3/uL (0.0-1.1); MONO % 6 % (0-9); NEUT # 4.9 x10^3uL (1.8-7.7); NEUT % 70 % (31-73); PLATELET COUNT 244 x10^3/uL (140-400); RED BLOOD COUNT 4.85 x10^6/uL (4.30-5.70); RED CELL DISTRIBUTION WIDTH 14.3 % (11.5-14.5)
[2019-07-12 09:12] LABS: ALBUMIN 3.8 g/dL (3.4-5.0); ALBUMIN/GLOBULIN RATIO 1.1 (1.0-1.7); CALCIUM 9.6 mg/dL (8.5-10.1); CREATININE 0.9 mg/dL (0.7-1.3); GFR 86.7; POTASSIUM 4.3 mmol/L (3.5-5.1); TOTAL BILIRUBIN 0.4 mg/dL (0.2-1.0); TOTAL PROTEIN 7.4 g/dL (6.4-8.2)
[2019-07-12 15:49] VITALS: BP 138/91
[2019-07-12] MEDS: TAMSULOSIN 0.4 MG CAP.ER.24H. PO SCH (20:53)
[2019-07-12] MEDS: MIRTAZAPINE 7.5 MG TABLET. PO SCH (20:53)
[2019-07-12] MEDS: ACETAMINOPHEN 325 MG TABLET PO PRN (20:57)
--- NOTE | 2019-07-12 21:59 | PDOC ---
Exam Note: Rafael Note: Please also refer to the separate dictated note~for this date of service dictated separately.~Patient seen individually. Discussed the patient with Nursing staff reviewed the chart.~Reviewed interim history and current functioning. Reviewed vital signs,~Labs/ Radiology~and current medications noted below. Continue current treatment with the changes noted in the dictated addendum note Assessment: Vital Signs/I&O: Vital Signs Date Time Temp Pulse Resp B/P (MAP) Pulse Ox O2 Delivery O2 Flow Rate FiO2 07/12/19 20:18 98.3 96 07/12/19 15:49 89 19 138/91 (107) 07/12/19 06:27 Room Air I & O 07/11/19 07/11/19 07/12/19 15:00 23:00 07:00 Intake Total 720 ml 600 ml Balance 720 ml 600 ml Labs: Laboratory Tests Test 07/12/19 08:37 White Blood Count 7.0 x10^3/uL (4.0-11.0) Red Blood Count 4.85 x10^6/uL (4.30-5.70) Hemoglobin 15.0 g/dL (13.0-17.5) Hematocrit 44.8 % (39.0-53.0) Mean Corpuscular Volume 92 fL (79-100) Mean Corpuscular Hemoglobin 31 pg (25-35) Mean Corpuscular Hemoglobin Concent 33 g/dL (31-37) Red Cell Distribution Width 14.3 % (11.5-14.5) Platelet Count 244 x10^3/uL (140-400) Neutrophils (%) (Auto) 70 % (31-73) Lymphocytes (%) (Auto) 22 % (24-48) L Monocytes (%) (Auto) 6 % (0-9) Eosinophils (%) (Auto) 1 % (0-3) Basophils (%) (Auto) 1 % (0-3) Neutrophils # (Auto) 4.9 x10^3uL (1.8-7.7) Lymphocytes # (Auto) 1.5 x10^3/uL (1.0-4.8) Monocytes # (Auto) 0.4 x10^3/uL (0.0-1.1) Eosinophils # (Auto) 0.1 x10^3/uL (0.0-0.7) Basophils # (Auto) 0.0 x10^3/uL (0.0-0.2) Sodium Level 139 mmol/L (136-145) Potassium Level 4.3 mmol/L (3.5-5.1) Chloride Level 104 mmol/L (98-107) Carbon Dioxide Level 25 mmol/L (21-32) Anion Gap 10 (6-14) Blood Urea Nitrogen 21 mg/dL (8-26) Creatinine 0.9 mg/dL (0.7-1.3) Estimated GFR (Cockcroft-Gault) 86.7 BUN/Creatinine Ratio 23 (6-20) H Glucose Level 100 mg/dL (70-99) H Calcium Level 9.6 mg/dL (8.5-10.1) Total Bilirubin 0.4 mg/dL (0.2-1.0) Aspartate Amino Transferase (AST) 23 U/L (15-37) Alanine Aminotransferase (ALT) 32 U/L (16-63) Alkaline Phosphatase 148 U/L (46-116) H Total Protein 7.4 g/dL (6.4-8.2) Albumin 3.8 g/dL (3.4-5.0) Albumin/Globulin Ratio 1.1 (1.0-1.7) Current Medications: Meds: Current Medications Medications (Trade) Dose Ordered Sig/Rober Route PRN Reason Start Time Stop Time Status Last Admin Dose Admin Oxcarbazepine (Trileptal) 300 mg QHS PO 07/12/19 21:00 07/12/19 20:57 I have reviewed the current psychotropics carefully including drug interactions. Risk benefit ratio favors no change other than as noted in my dictated progress note. Diagnosis: Problems: (1) Anxiety disorder (2) Impulse control disorder (3) Schizoaffective disorder, bipolar type (4) Schizoaffective disorder, chronic condition with acute exacerbation (5) Schizophrenia, paranoid, chronic with acute exacerbation LEONARD ASHFORD MD July 12, 2019 21:58
[2019-07-13 05:21] VITALS: BP 127/92
[2019-07-13] MEDS: ACETAMINOPHEN 325 MG TABLET PO PRN (05:23)
[2019-07-13] MEDS: LEVOTHYROXINE 100 MCG TABLET PO SCH (05:23)
[2019-07-13] MEDS: CHOLECALCIFEROL (VITAMIN D3) 1,000 UNIT TABLET PO SCH (09:00)
[2019-07-13] MEDS: CELECOXIB 100 MG CAPSULE PO SCH (09:15)
[2019-07-13] MEDS: GABAPENTIN 100 MG CAPSULE. PO SCH ×3 (09:15→20:22)
[2019-07-13] MEDS: NICOTINE 14MG PATCH. TD SCH (09:15)
[2019-07-13] MEDS: DOCUSATE SODIUM 100 MG CAPSULE PO SCH ×2 (09:16→20:22)
[2019-07-13] MEDS: PANTOPRAZOLE 40 MG TABLET. PO SCH (09:16)
[2019-07-13] MEDS: SERTRALINE 100 MG TABLET. PO SCH (09:16)
[2019-07-13] MEDS: buPROPion XL 150 MG TAB.ER.24H PO SCH (09:16)
[2019-07-13] MEDS: MULTIVITAMIN with MINERAL TABLET. PO SCH (09:16)
[2019-07-13] MEDS: ASPIRIN ENTERIC COATED 81 MG TABLET.DR. PO SCH (09:16)
[2019-07-13] MEDS: HYDROcodone/APAP 7.5/325MG 1 TAB TABLET PO PRN ×2 (12:10→20:22)
[2019-07-13 15:34] VITALS: BP 143/65
[2019-07-13] MEDS: TAMSULOSIN 0.4 MG CAP.ER.24H. PO SCH (20:22)
[2019-07-13] MEDS: MIRTAZAPINE 7.5 MG TABLET. PO SCH (20:22)
--- NOTE | 2019-07-13 21:58 | PDOC ---
Exam Note: Rafael Note: Please also refer to the separate dictated note~for this date of service dictated separately.~Patient seen individually. Discussed the patient with Nursing staff reviewed the chart.~Reviewed interim history and current functioning. Reviewed vital signs,~Labs/ Radiology~and current medications noted below. Continue current treatment with the changes noted in the dictated addendum note Assessment: Vital Signs/I&O: Vital Signs Date Time Temp Pulse Resp B/P (MAP) Pulse Ox O2 Delivery O2 Flow Rate FiO2 07/13/19 21:25 97 Room Air 07/13/19 20:53 98.2 07/13/19 15:34 95 20 143/65 (91) I & O 07/12/19 07/12/19 07/13/19 15:00 23:00 07:00 Intake Total 960 ml 480 ml Balance 960 ml 480 ml Current Medications: I have reviewed the current psychotropics carefully including drug interactions. Risk benefit ratio favors no change other than as noted in my dictated progress note. Diagnosis: Problems: (1) Anxiety disorder (2) Impulse control disorder (3) Schizoaffective disorder, bipolar type (4) Schizoaffective disorder, chronic condition with acute exacerbation (5) Schizophrenia, paranoid, chronic with acute exacerbation LEONARD ASHFORD MD July 13, 2019 21:58
--- NOTE | 2019-07-14 05:04 | PN ---
DATE: 07/11/2019 PSYCHIATRIC PROGRESS NOTE This late entry date of service 07/11/2019 covers elements not covered in my initial note. SUBJECTIVE: I met with the patient evening of 07/11/2019 on audiovisual rounds. Per HUNG Younger, the patient slept 6-7 hours previous night. He has been sexually inappropriate, undressing himself, in the morning he was found naked in his bed and was then exposing himself sexually later in the morning and drawing pictures of naked women. REVIEW OF SYSTEMS: Ambulation impaired, in wheelchair. No CV, , pulmonary, eye system symptoms on review. MENTAL STATUS EXAMINATION: Oriented reasonably. Speech has some latency, coherent. Abstraction fair, computation impaired. Language function intact. Mood and affect remains labile and grandiose at times. LABORATORY DATA: Reviewed. IMPRESSION: Schizoaffective disorder, bipolar type, mixed with psychotic features; anxiety disorder, unspecified; impulse control disorder, unspecified. PLAN: I have reviewed the patient's past records. I wanted to start him on Depakote as a mood stabilizer, but he had an increased ammonia level when treated on this in the past and we will consider Trileptal instead. Maintain Haldol Decanoate, Wellbutrin, Neurontin, medroxyprogesterone, Remeron and Zoloft. MAN Amarilis ASHFORD MD DR: JULIAN/hemal JOB#: [id number] / [id number]
--- NOTE | 2019-07-14 05:06 | PN ---
DATE: 07/12/2019 PSYCHIATRIC PROGRESS NOTE This late entry 07/12/2019 covers elements not covered in my initial note. SUBJECTIVE: I met with the patient evening of 07/12/2019. Per HUNG Younger, the patient slept 8 hours previous night. He has not been sexually inappropriate or at least less preoccupied with this. REVIEW OF SYSTEMS: Impaired ambulation, in wheelchair. No CV, , pulmonary, eye system symptoms on review. MENTAL STATUS EXAM: Oriented reasonably. Speech is coherent, less pressured. Abstraction fair, computation impaired, language function intact, attention span short. Mood and affect remains labile, at times grandiose. LABORATORY DATA: Reviewed. IMPRESSION: Schizoaffective disorder, bipolar type, mixed with psychotic features; anxiety disorder, unspecified; impulse control disorder, unspecified. Rest unchanged. PLAN: We will go ahead and start Trileptal 300 mg at bedtime as he was unable to tolerate Depakote in the past as a mood stabilizer due to increased ammonia levels. Continue Wellbutrin ER 150 mg a day, Neurontin 100 mg t.i.d., Haldol Decanoate 150 mg q. 14 days, medroxyprogesterone 150 mg IM every 30 days, Remeron 7.5 mg at bedtime, Zoloft 100 mg a day, Trileptal will be added 300 mg at bedtime as a mood stabilizer. MAN Amarilis ASHFORD MD DR: JULIAN/hemal JOB#: [id number] / [id number]
--- NOTE | 2019-07-14 05:08 | PN ---
DATE: 07/13/2019 PSYCHIATRIC PROGRESS NOTE This note covers elements not covered in my initial note of 07/13/2019. SUBJECTIVE: The patient was staffed at a treatment team meeting with the entire team in the morning and seen individually on audiovisual rounds in the evening. Per HUNG Serna, the patient slept 7 hours previous night. Appetite 100%. He lies in his bed naked, but not sexually aggressive. He is not attending groups, somewhat hyperverbal in the evening, using racial slurs, had to be redirected by nursing staff. REVIEW OF SYSTEMS: Ambulation impaired, in wheelchair. No CV, , pulmonary, eye system symptoms on review. MENTAL STATUS EXAM: Reasonably oriented. Speech is coherent, somewhat pressured. Abstraction fair, computation impaired, language function intact, attention span short. Mood and affect still labile, but improved. LABORATORY DATA: Reviewed. IMPRESSION: Schizoaffective disorder, bipolar type, mixed with psychotic features. Rest unchanged. PLAN: No change from initial note. Trileptal was added and we will increase it gradually as a mood stabilizer. MAN Amarilis ASHFORD MD DR: JULIAN/hemal JOB#: [id number] / [id number]
[2019-07-14] MEDS: LEVOTHYROXINE 100 MCG TABLET PO SCH (05:47)
[2019-07-14 06:26] LABS: BASO % 0 % (0-3); EOS # 0.1 x10^3/uL (0.0-0.7); EOS % 2 % (0-3); HEMATOCRIT 44.2 % (39.0-53.0); HEMOGLOBIN 14.7 g/dL (13.0-17.5); LYMPH # 1.7 x10^3/uL (1.0-4.8); LYMPH % 23 % (24-48); MEAN CORPUSCULAR HEMOGLOBIN 31 pg (25-35); MEAN CORPUSCULAR HGB CONC 33 g/dL (31-37); MEAN CORPUSCULAR VOLUME 93 fL (79-100); MONO # 0.7 x10^3/uL (0.0-1.1); MONO % 9 % (0-9); NEUT % 67 % (31-73); PLATELET COUNT 223 x10^3/uL (140-400); RED BLOOD COUNT 4.77 x10^6/uL (4.30-5.70); RED CELL DISTRIBUTION WIDTH 14.1 % (11.5-14.5); WHITE BLOOD COUNT 7.6 x10^3/uL (4.0-11.0)
[2019-07-14 06:32] VITALS: BP 133/91
[2019-07-14 06:42] LABS: ALBUMIN 3.7 g/dL (3.4-5.0); CALCIUM 9.6 mg/dL (8.5-10.1); CREATININE 0.9 mg/dL (0.7-1.3); GFR 86.7; POTASSIUM 4.1 mmol/L (3.5-5.1); TOTAL BILIRUBIN 0.3 mg/dL (0.2-1.0); TOTAL PROTEIN 7.3 g/dL (6.4-8.2)
[2019-07-14] MEDS: NICOTINE 14MG PATCH. TD SCH (07:49)
[2019-07-14] MEDS: SERTRALINE 100 MG TABLET. PO SCH (07:49)
[2019-07-14] MEDS: DOCUSATE SODIUM 100 MG CAPSULE PO SCH ×2 (07:50→20:11)
[2019-07-14] MEDS: GABAPENTIN 100 MG CAPSULE. PO SCH ×3 (07:50→20:11)
[2019-07-14] MEDS: CELECOXIB 100 MG CAPSULE PO SCH (07:50)
[2019-07-14] MEDS: ASPIRIN ENTERIC COATED 81 MG TABLET.DR. PO SCH (07:50)
[2019-07-14] MEDS: PANTOPRAZOLE 40 MG TABLET. PO SCH (07:50)
[2019-07-14] MEDS: buPROPion XL 150 MG TAB.ER.24H PO SCH (07:50)
[2019-07-14] MEDS: MULTIVITAMIN with MINERAL TABLET. PO SCH (07:52)
[2019-07-14] MEDS: HYDROcodone/APAP 7.5/325MG 1 TAB TABLET PO PRN ×3 (07:52→20:18)
[2019-07-14] MEDS: CHOLECALCIFEROL (VITAMIN D3) 1,000 UNIT TABLET PO SCH (07:53)
[2019-07-14 16:23] VITALS: BP 140/80
[2019-07-14] MEDS: ACETAMINOPHEN 325 MG TABLET PO PRN (18:06)
[2019-07-14] MEDS: TAMSULOSIN 0.4 MG CAP.ER.24H. PO SCH (20:11)
[2019-07-14] MEDS: MIRTAZAPINE 7.5 MG TABLET. PO SCH (20:11)
[2019-07-14] MEDS: AMMONIUM LACTATE 12% TOPICAL LOTION 226GM BOTTLE. TP SCH (20:12)
--- NOTE | 2019-07-14 22:07 | PDOC ---
Exam Note: Rafael Note: Please also refer to the separate dictated note~for this date of service dictated separately.~Patient seen individually. Discussed the patient with Nursing staff reviewed the chart.~Reviewed interim history and current functioning. Reviewed vital signs,~Labs/ Radiology~and current medications noted below. Continue current treatment with the changes noted in the dictated addendum note Assessment: Vital Signs/I&O: Vital Signs Date Time Temp Pulse Resp B/P (MAP) Pulse Ox O2 Delivery O2 Flow Rate FiO2 07/14/19 20:18 97 Room Air 07/14/19 20:00 98.1 07/14/19 16:23 80 20 140/80 (100) I & O 07/13/19 07/13/19 07/14/19 15:00 23:00 07:00 Intake Total 960 ml 360 ml Balance 960 ml 360 ml Labs: Laboratory Tests Test 07/14/19 06:00 White Blood Count 7.6 x10^3/uL (4.0-11.0) Red Blood Count 4.77 x10^6/uL (4.30-5.70) Hemoglobin 14.7 g/dL (13.0-17.5) Hematocrit 44.2 % (39.0-53.0) Mean Corpuscular Volume 93 fL (79-100) Mean Corpuscular Hemoglobin 31 pg (25-35) Mean Corpuscular Hemoglobin Concent 33 g/dL (31-37) Red Cell Distribution Width 14.1 % (11.5-14.5) Platelet Count 223 x10^3/uL (140-400) Neutrophils (%) (Auto) 67 % (31-73) Lymphocytes (%) (Auto) 23 % (24-48) L Monocytes (%) (Auto) 9 % (0-9) Eosinophils (%) (Auto) 2 % (0-3) Basophils (%) (Auto) 0 % (0-3) Neutrophils # (Auto) 5.0 x10^3uL (1.8-7.7) Lymphocytes # (Auto) 1.7 x10^3/uL (1.0-4.8) Monocytes # (Auto) 0.7 x10^3/uL (0.0-1.1) Eosinophils # (Auto) 0.1 x10^3/uL (0.0-0.7) Basophils # (Auto) 0.0 x10^3/uL (0.0-0.2) Sodium Level 139 mmol/L (136-145) Potassium Level 4.1 mmol/L (3.5-5.1) Chloride Level 106 mmol/L (98-107) Carbon Dioxide Level 24 mmol/L (21-32) Anion Gap 9 (6-14) Blood Urea Nitrogen 19 mg/dL (8-26) Creatinine 0.9 mg/dL (0.7-1.3) Estimated GFR (Cockcroft-Gault) 86.7 BUN/Creatinine Ratio 21 (6-20) H Glucose Level 95 mg/dL (70-99) Calcium Level 9.6 mg/dL (8.5-10.1) Total Bilirubin 0.3 mg/dL (0.2-1.0) Aspartate Amino Transferase (AST) 30 U/L (15-37) Alanine Aminotransferase (ALT) 44 U/L (16-63) Alkaline Phosphatase 142 U/L (46-116) H Total Protein 7.3 g/dL (6.4-8.2) Albumin 3.7 g/dL (3.4-5.0) Albumin/Globulin Ratio 1.0 (1.0-1.7) Current Medications: Meds: Current Medications Medications (Trade) Dose Ordered Sig/Rober Route PRN Reason Start Time Stop Time Status Last Admin Dose Admin Lactic Acid (Lac-Hydrin) 1 muriel BID TP 07/14/19 21:00 07/14/19 20:12 I have reviewed the current psychotropics carefully including drug interactions. Risk benefit ratio favors no change other than as noted in my dictated progress note. Diagnosis: Problems: (1) Anxiety disorder (2) Impulse control disorder (3) Schizoaffective disorder, bipolar type (4) Schizoaffective disorder, chronic condition with acute exacerbation (5) Schizophrenia, paranoid, chronic with acute exacerbation LEONARD ASHFORD MD July 14, 2019 22:07
[2019-07-15] MEDS: HYDROcodone/APAP 7.5/325MG 1 TAB TABLET PO PRN (03:09)
[2019-07-15] MEDS: LEVOTHYROXINE 100 MCG TABLET PO SCH (05:14)
[2019-07-15 06:25] VITALS: BP 145/96
[2019-07-15] MEDS: MULTIVITAMIN with MINERAL TABLET. PO SCH (07:45)
[2019-07-15] MEDS: ASPIRIN ENTERIC COATED 81 MG TABLET.DR. PO SCH (07:45)
[2019-07-15] MEDS: NICOTINE 14MG PATCH. TD SCH (07:45)
[2019-07-15] MEDS: CELECOXIB 100 MG CAPSULE PO SCH (07:45)
[2019-07-15] MEDS: GABAPENTIN 100 MG CAPSULE. PO SCH ×3 (07:45→20:36)
[2019-07-15] MEDS: PANTOPRAZOLE 40 MG TABLET. PO SCH (07:45)
[2019-07-15] MEDS: SERTRALINE 100 MG TABLET. PO SCH (07:45)
[2019-07-15] MEDS: buPROPion XL 150 MG TAB.ER.24H PO SCH (07:45)
[2019-07-15] MEDS: DOCUSATE SODIUM 100 MG CAPSULE PO SCH ×2 (07:46→20:37)
[2019-07-15] MEDS: CHOLECALCIFEROL (VITAMIN D3) 1,000 UNIT TABLET PO SCH (07:46)
[2019-07-15] MEDS: AMMONIUM LACTATE 12% TOPICAL LOTION 226GM BOTTLE. TP SCH ×2 (07:47→20:37)
[2019-07-15] MEDS: ACETAMINOPHEN 325 MG TABLET PO PRN ×2 (08:10→12:36)
[2019-07-15] MEDS: HALOPERIDOL DECANOATE IM ER 100 MG/ML VIAL. IM SCH (09:00)
[2019-07-15 16:02] VITALS: BP_SYST 117; BP_SYST 162; BP_DIAS 57; BP_DIAS 98
[2019-07-15] MEDS: MIRTAZAPINE 7.5 MG TABLET. PO SCH (20:36)
[2019-07-15] MEDS: TAMSULOSIN 0.4 MG CAP.ER.24H. PO SCH (20:37)
--- NOTE | 2019-07-15 22:15 | PDOC ---
Exam Note: Rafael Note: Please also refer to the separate dictated note~for this date of service dictated separately.~Patient seen individually. Discussed the patient with Nursing staff reviewed the chart.~Reviewed interim history and current functioning. Reviewed vital signs,~Labs/ Radiology~and current medications noted below. Continue current treatment with the changes noted in the dictated addendum note Assessment: Vital Signs/I&O: Vital Signs Date Time Temp Pulse Resp B/P (MAP) Pulse Ox O2 Delivery O2 Flow Rate FiO2 07/15/19 20:25 98.1 97 07/15/19 16:02 90 20 162/98 (119) Room Air I & O 07/14/19 07/14/19 07/15/19 15:00 23:00 07:00 Intake Total 1600 ml 890 ml Balance 1600 ml 890 ml Current Medications: Meds: Current Medications Medications (Trade) Dose Ordered Sig/Rober Route PRN Reason Start Time Stop Time Status Last Admin Dose Admin Haloperidol Decanoate (Haldol Decanoate Im Extended Release) 100 mg Q2WKS IM 07/15/19 09:00 07/15/19 09:00 Oxcarbazepine (Trileptal) 300 mg BID PO 07/15/19 21:00 07/15/19 20:36 I have reviewed the current psychotropics carefully including drug interactions. Risk benefit ratio favors no change other than as noted in my dictated progress note. Diagnosis: Problems: (1) Anxiety disorder (2) Impulse control disorder (3) Schizoaffective disorder, bipolar type (4) Schizoaffective disorder, chronic condition with acute exacerbation (5) Schizophrenia, paranoid, chronic with acute exacerbation LEONARD ASHFORD MD July 15, 2019 22:15
[2019-07-16 05:43] VITALS: BP 113/78
[2019-07-16] MEDS: LEVOTHYROXINE 100 MCG TABLET PO SCH (05:54)
[2019-07-16 07:05] LABS: BASO % 1 % (0-3); EOS # 0.1 x10^3/uL (0.0-0.7); EOS % 2 % (0-3); HEMATOCRIT 42.2 % (39.0-53.0); HEMOGLOBIN 14.2 g/dL (13.0-17.5); LYMPH # 1.5 x10^3/uL (1.0-4.8); LYMPH % 24 % (24-48); MEAN CORPUSCULAR HEMOGLOBIN 31 pg (25-35); MEAN CORPUSCULAR HGB CONC 34 g/dL (31-37); MEAN CORPUSCULAR VOLUME 93 fL (79-100); MONO # 0.5 x10^3/uL (0.0-1.1); MONO % 9 % (0-9); NEUT # 4.1 x10^3uL (1.8-7.7); NEUT % 65 % (31-73); PLATELET COUNT 207 x10^3/uL (140-400); RED BLOOD COUNT 4.55 x10^6/uL (4.30-5.70); WHITE BLOOD COUNT 6.2 x10^3/uL (4.0-11.0)
[2019-07-16 07:15] LABS: ALBUMIN 3.6 g/dL (3.4-5.0); ALBUMIN/GLOBULIN RATIO 1.1 (1.0-1.7); CALCIUM 8.9 mg/dL (8.5-10.1); CREATININE 0.8 mg/dL (0.7-1.3); GFR 99.3; POTASSIUM 4.3 mmol/L (3.5-5.1); TOTAL BILIRUBIN 0.3 mg/dL (0.2-1.0); TOTAL PROTEIN 6.9 g/dL (6.4-8.2)
[2019-07-16] MEDS: MULTIVITAMIN with MINERAL TABLET. PO SCH (08:03)
[2019-07-16] MEDS: GABAPENTIN 100 MG CAPSULE. PO SCH ×3 (08:03→21:25)
[2019-07-16] MEDS: DOCUSATE SODIUM 100 MG CAPSULE PO SCH ×2 (08:03→21:25)
[2019-07-16] MEDS: SERTRALINE 100 MG TABLET. PO SCH (08:03)
[2019-07-16] MEDS: ASPIRIN ENTERIC COATED 81 MG TABLET.DR. PO SCH (08:03)
[2019-07-16] MEDS: NICOTINE 14MG PATCH. TD SCH (08:03)
[2019-07-16] MEDS: PANTOPRAZOLE 40 MG TABLET. PO SCH (08:03)
[2019-07-16] MEDS: buPROPion XL 150 MG TAB.ER.24H PO SCH (08:03)
[2019-07-16] MEDS: CELECOXIB 100 MG CAPSULE PO SCH (08:04)
[2019-07-16] MEDS: AMMONIUM LACTATE 12% TOPICAL LOTION 226GM BOTTLE. TP SCH ×2 (08:05→21:25)
[2019-07-16] MEDS: CHOLECALCIFEROL (VITAMIN D3) 1,000 UNIT TABLET PO SCH (08:05)
[2019-07-16] MEDS: HYDROcodone/APAP 7.5/325MG 1 TAB TABLET PO PRN (12:46)
[2019-07-16] MEDS: MAGNESIUM HYDROXIDE 2,400 MG/30 ML ORAL.SUSP. PO PRN (12:47)
[2019-07-16 16:09] VITALS: BP 174/95
[2019-07-16] MEDS: ACETAMINOPHEN 325 MG TABLET PO PRN (17:40)
[2019-07-16] MEDS: MIRTAZAPINE 7.5 MG TABLET. PO SCH (21:24)
[2019-07-16] MEDS: TAMSULOSIN 0.4 MG CAP.ER.24H. PO SCH (21:25)
--- NOTE | 2019-07-16 21:43 | PN ---
DATE: 07/15/2019 PSYCHIATRIC PROGRESS NOTE. This late entry of 07/15/2019 covers the elements not covered in my initial note. SUBJECTIVE: I met with the patient in the evening of 07/15/2019 on telehealth rounds. Per HUNG Jo, the patient slept 4-3/4 hours previous night. He has been talking to himself, remains intermittently psychotic, grandiose at times, but less sexually inappropriate. REVIEW OF SYSTEMS: Ambulation impaired, in wheelchair. No CV, , pulmonary, eye system symptoms on review. MENTAL STATUS EXAM: Reasonably oriented. Speech is coherent, rapid at times. Abstraction fair, computation impaired, language function intact, attention span short. Mood and affect grandiose, but less so than before. LABORATORY DATA: Reviewed. IMPRESSION: Unchanged from initial note. PLAN: No change from initial note, but increase the Trileptal to 300 mg twice a day. He is tolerating the 300 mg a day adequately for now, remains somewhat grandiose. Continue rest unchanged including Wellbutrin, Neurontin, Haldol Decanoate, medroxyprogesterone, Remeron and Zoloft. MAN Amarilis ASHFORD MD DR: JULIAN/hemal JOB#: [id number] / [id number]
--- NOTE | 2019-07-16 22:20 | PDOC ---
Exam Note: Rafael Note: Please also refer to the separate dictated note~for this date of service dictated separately.~Patient seen individually. Discussed the patient with Nursing staff reviewed the chart.~Reviewed interim history and current functioning. Reviewed vital signs,~Labs/ Radiology~and current medications noted below. Continue current treatment with the changes noted in the dictated addendum note Assessment: Vital Signs/I&O: Vital Signs Date Time Temp Pulse Resp B/P (MAP) Pulse Ox O2 Delivery O2 Flow Rate FiO2 07/16/19 21:23 98.1 98 07/16/19 16:09 86 20 174/95 (121) Room Air I & O 07/15/19 07/15/19 07/16/19 14:59 22:59 06:59 Intake Total 960 ml 240 ml Balance 960 ml 240 ml Labs: Laboratory Tests Test 07/16/19 06:40 White Blood Count 6.2 x10^3/uL (4.0-11.0) Red Blood Count 4.55 x10^6/uL (4.30-5.70) Hemoglobin 14.2 g/dL (13.0-17.5) Hematocrit 42.2 % (39.0-53.0) Mean Corpuscular Volume 93 fL (79-100) Mean Corpuscular Hemoglobin 31 pg (25-35) Mean Corpuscular Hemoglobin Concent 34 g/dL (31-37) Red Cell Distribution Width 14.0 % (11.5-14.5) Platelet Count 207 x10^3/uL (140-400) Neutrophils (%) (Auto) 65 % (31-73) Lymphocytes (%) (Auto) 24 % (24-48) Monocytes (%) (Auto) 9 % (0-9) Eosinophils (%) (Auto) 2 % (0-3) Basophils (%) (Auto) 1 % (0-3) Neutrophils # (Auto) 4.1 x10^3uL (1.8-7.7) Lymphocytes # (Auto) 1.5 x10^3/uL (1.0-4.8) Monocytes # (Auto) 0.5 x10^3/uL (0.0-1.1) Eosinophils # (Auto) 0.1 x10^3/uL (0.0-0.7) Basophils # (Auto) 0.0 x10^3/uL (0.0-0.2) Sodium Level 139 mmol/L (136-145) Potassium Level 4.3 mmol/L (3.5-5.1) Chloride Level 105 mmol/L (98-107) Carbon Dioxide Level 25 mmol/L (21-32) Anion Gap 9 (6-14) Blood Urea Nitrogen 20 mg/dL (8-26) Creatinine 0.8 mg/dL (0.7-1.3) Estimated GFR (Cockcroft-Gault) 99.3 BUN/Creatinine Ratio 25 (6-20) H Glucose Level 91 mg/dL (70-99) Calcium Level 8.9 mg/dL (8.5-10.1) Total Bilirubin 0.3 mg/dL (0.2-1.0) Aspartate Amino Transferase (AST) 22 U/L (15-37) Alanine Aminotransferase (ALT) 32 U/L (16-63) Alkaline Phosphatase 129 U/L (46-116) H Total Protein 6.9 g/dL (6.4-8.2) Albumin 3.6 g/dL (3.4-5.0) Albumin/Globulin Ratio 1.1 (1.0-1.7) Current Medications: I have reviewed the current psychotropics carefully including drug interactions. Risk benefit ratio favors no change other than as noted in my dictated progress note. Diagnosis: Problems: (1) Anxiety disorder (2) Impulse control disorder (3) Schizoaffective disorder, bipolar type (4) Schizoaffective disorder, chronic condition with acute exacerbation (5) Schizophrenia, paranoid, chronic with acute exacerbation LEONARD ASHFORD MD July 16, 2019 22:19
--- NOTE | 2019-07-17 03:19 | PN ---
DATE: 07/14/2019 PSYCHIATRIC PROGRESS NOTE This late entry, 07/14/2019, covers elements not covered in my initial note. SUBJECTIVE: Per Deysi RN, the patient slept 7-1/2 hours previous night. He remains somewhat hyperverbal, grandiose at times, urinated on the floor next to his bed, oblivious of what he did. REVIEW OF SYSTEMS: Ambulation impaired, in wheelchair. No CV, , pulmonary, eye system symptoms on review. MENTAL STATUS EXAM: Reasonably oriented. Speech coherent, rapid at times. Abstraction fair, computation impaired, language function intact, attention span short. Mood and affect remain somewhat grandiose, paranoid. LABORATORY DATA: Reviewed. IMPRESSION: Schizoaffective disorder, bipolar type, mixed with psychotic features. Rest unchanged. PLAN: Start Trileptal 300 mg p.o. at bedtime as a mood stabilizer. He had raised ammonia level on the Depakote and we will avoid this. We will need to increase Trileptal gradually. LEONARD ASHFORD MD DR: JULIAN/hemal JOB#: [id number] / [id number]
[2019-07-17] MEDS: LEVOTHYROXINE 100 MCG TABLET PO SCH (05:25)
[2019-07-17 05:46] VITALS: BP 146/93
[2019-07-17] MEDS: PANTOPRAZOLE 40 MG TABLET. PO SCH (08:29)
[2019-07-17] MEDS: CHOLECALCIFEROL (VITAMIN D3) 1,000 UNIT TABLET PO SCH (08:30)
[2019-07-17] MEDS: SERTRALINE 100 MG TABLET. PO SCH (08:30)
[2019-07-17] MEDS: buPROPion XL 150 MG TAB.ER.24H PO SCH (08:30)
[2019-07-17] MEDS: GABAPENTIN 100 MG CAPSULE. PO SCH ×3 (08:30→21:40)
[2019-07-17] MEDS: MULTIVITAMIN with MINERAL TABLET. PO SCH (08:30)
[2019-07-17] MEDS: AMMONIUM LACTATE 12% TOPICAL LOTION 226GM BOTTLE. TP SCH ×2 (08:30→21:40)
[2019-07-17] MEDS: ASPIRIN ENTERIC COATED 81 MG TABLET.DR. PO SCH (08:30)
[2019-07-17] MEDS: DOCUSATE SODIUM 100 MG CAPSULE PO SCH ×2 (08:30→21:40)
[2019-07-17] MEDS: CELECOXIB 100 MG CAPSULE PO SCH (08:30)
[2019-07-17] MEDS: NICOTINE 14MG PATCH. TD SCH (08:30)
[2019-07-17] MEDS: HYDROcodone/APAP 7.5/325MG 1 TAB TABLET PO PRN ×2 (08:35→21:41)
[2019-07-17] MEDS ORDERED: BACITRACIN ZINC TOPICAL OINT PACKET. TP PRN (10:00)
[2019-07-17] MEDS: ACETAMINOPHEN 325 MG TABLET PO PRN (14:39)
[2019-07-17] MEDS: LISINOPRIL 20 MG TABLET PO SCH (15:55)
[2019-07-17 16:18] VITALS: BP 180/110
[2019-07-17] MEDS: TAMSULOSIN 0.4 MG CAP.ER.24H. PO SCH (21:40)
[2019-07-17] MEDS: MIRTAZAPINE 7.5 MG TABLET. PO SCH (21:40)
--- NOTE | 2019-07-17 22:13 | PDOC ---
Exam Note: Rafael Note: Please also refer to the separate dictated note~for this date of service dictated separately.~Patient seen individually. Discussed the patient with Nursing staff reviewed the chart.~Reviewed interim history and current functioning. Reviewed vital signs,~Labs/ Radiology~and current medications noted below. Continue current treatment with the changes noted in the dictated addendum note Assessment: Vital Signs/I&O: Vital Signs Date Time Temp Pulse Resp B/P (MAP) Pulse Ox O2 Delivery O2 Flow Rate FiO2 07/17/19 21:41 96 07/17/19 16:18 98.9 86 20 180/110 (133) 07/17/19 05:46 Room Air I & O 07/16/19 07/16/19 07/17/19 15:00 23:00 07:00 Intake Total 720 ml 600 ml Balance 720 ml 600 ml Current Medications: Meds: Current Medications Medications (Trade) Dose Ordered Sig/Rober Route PRN Reason Start Time Stop Time Status Last Admin Dose Admin Lisinopril (Prinivil) 20 mg DAILY PO 07/17/19 15:45 07/17/19 15:55 I have reviewed the current psychotropics carefully including drug interactions. Risk benefit ratio favors no change other than as noted in my dictated progress note. Diagnosis: Problems: (1) Anxiety disorder (2) Impulse control disorder (3) Schizoaffective disorder, bipolar type (4) Schizoaffective disorder, chronic condition with acute exacerbation (5) Schizophrenia, paranoid, chronic with acute exacerbation LEONARD ASHFORD MD July 17, 2019 22:13
[2019-07-18 06:16] VITALS: BP 99/64
[2019-07-18] MEDS: LEVOTHYROXINE 100 MCG TABLET PO SCH (06:27)
[2019-07-18 07:42] LABS: BASO # 0.1 x10^3/uL (0.0-0.2); BASO % 1 % (0-3); EOS # 0.1 x10^3/uL (0.0-0.7); EOS % 1 % (0-3); HEMATOCRIT 41.5 % (39.0-53.0); HEMOGLOBIN 13.9 g/dL (13.0-17.5); LYMPH # 1.2 x10^3/uL (1.0-4.8); LYMPH % 18 % (24-48); MEAN CORPUSCULAR HEMOGLOBIN 31 pg (25-35); MEAN CORPUSCULAR HGB CONC 33 g/dL (31-37); MEAN CORPUSCULAR VOLUME 92 fL (79-100); MONO # 0.6 x10^3/uL (0.0-1.1); MONO % 9 % (0-9); NEUT # 4.7 x10^3uL (1.8-7.7); NEUT % 70 % (31-73); PLATELET COUNT 201 x10^3/uL (140-400); RED BLOOD COUNT 4.51 x10^6/uL (4.30-5.70); RED CELL DISTRIBUTION WIDTH 14.1 % (11.5-14.5); WHITE BLOOD COUNT 6.7 x10^3/uL (4.0-11.0)
[2019-07-18 08:06] LABS: ALBUMIN 3.6 g/dL (3.4-5.0); ALBUMIN/GLOBULIN RATIO 1.1 (1.0-1.7); CALCIUM 9.2 mg/dL (8.5-10.1); CREATININE 0.9 mg/dL (0.7-1.3); GFR 86.7; POTASSIUM 4.5 mmol/L (3.5-5.1); TOTAL BILIRUBIN 0.3 mg/dL (0.2-1.0); TOTAL PROTEIN 6.9 g/dL (6.4-8.2)
[2019-07-18] MEDS: DOCUSATE SODIUM 100 MG CAPSULE PO SCH ×2 (09:11→20:15)
[2019-07-18] MEDS: MULTIVITAMIN with MINERAL TABLET. PO SCH (09:11)
[2019-07-18] MEDS: ASPIRIN ENTERIC COATED 81 MG TABLET.DR. PO SCH (09:12)
[2019-07-18] MEDS: PANTOPRAZOLE 40 MG TABLET. PO SCH (09:12)
[2019-07-18] MEDS: CHOLECALCIFEROL (VITAMIN D3) 1,000 UNIT TABLET PO SCH (09:12)
[2019-07-18] MEDS: SERTRALINE 100 MG TABLET. PO SCH (09:12)
[2019-07-18] MEDS: GABAPENTIN 100 MG CAPSULE. PO SCH ×3 (09:12→20:14)
[2019-07-18] MEDS: NICOTINE 14MG PATCH. TD SCH (09:13)
[2019-07-18] MEDS: CELECOXIB 100 MG CAPSULE PO SCH (09:14)
[2019-07-18 09:15] VITALS: BP 109/76
[2019-07-18] MEDS: AMMONIUM LACTATE 12% TOPICAL LOTION 226GM BOTTLE. TP SCH ×2 (09:22→20:17)
[2019-07-18] MEDS: buPROPion XL 150 MG TAB.ER.24H PO SCH (09:22)
[2019-07-18] MEDS: LISINOPRIL 20 MG TABLET PO SCH (09:22)
[2019-07-18 15:35] VITALS: BP 114/83
[2019-07-18] MEDS: ACETAMINOPHEN 325 MG TABLET PO PRN (15:53)
[2019-07-18] MEDS: MIRTAZAPINE 7.5 MG TABLET. PO SCH (20:14)
[2019-07-18] MEDS: TAMSULOSIN 0.4 MG CAP.ER.24H. PO SCH (20:14)
[2019-07-18] MEDS: HYDROcodone/APAP 7.5/325MG 1 TAB TABLET PO PRN (20:15)
--- NOTE | 2019-07-18 21:25 | PN ---
DATE: 07/16/2019 PSYCHIATRIC PROGRESS NOTE This late entry 07/16/2019 covers elements not covered in my initial note. SUBJECTIVE: I met with the patient on Telehealth rounds in the evening. Per HUNG oJ, the patient slept 9 hours previous night. He has appeared somewhat hyperverbal, grandiose, manic, talking nonstop. He is tolerating the increased Trileptal, but we may consider treatment on lithium, though this could be problematic given the amount of Haldol he is currently taking. REVIEW OF SYSTEMS: Ambulation impaired, in wheelchair. No CV, , pulmonary, eye system symptoms on review. MENTAL STATUS EXAMINATION: The patient is reasonably oriented. Speech coherent, rapid at times. Abstraction fair, computation impaired, language function intact, attention span short. Mood and affect remains labile and grandiose. LABORATORY DATA: Reviewed. IMPRESSION: Schizoaffective disorder, bipolar type, mixed with psychotic features. Rest unchanged. PLAN: No change from initial note. Maintain Wellbutrin ER 150 mg a day, Neurontin 100 mg t.i.d., Haldol Decanoate 150 mg IM q. 14 days. He remains on medroxyprogesterone 150 mg IM q. 30 days, Remeron 7.5 mg at bedtime, Trileptal 300 mg b.i.d., Zoloft 100 mg a day. May also consider reducing the Zoloft given his manic symptoms. He is also on Remeron 7.5 mg at bedtime. LEONARD ASHFORD MD DR: JULIAN/hemal JOB#: [id number] / [id number]
--- NOTE | 2019-07-18 22:10 | PDOC ---
Exam Note: Rafael Note: Please also refer to the separate dictated note~for this date of service dictated separately.~Patient seen individually. Discussed the patient with Nursing staff reviewed the chart.~Reviewed interim history and current functioning. Reviewed vital signs,~Labs/ Radiology~and current medications noted below. Continue current treatment with the changes noted in the dictated addendum note Assessment: Vital Signs/I&O: Vital Signs Date Time Temp Pulse Resp B/P (MAP) Pulse Ox O2 Delivery O2 Flow Rate FiO2 07/18/19 20:15 Room Air 07/18/19 18:45 98.0 07/18/19 15:35 86 18 114/83 (93) 96 I & O 07/17/19 07/17/19 07/18/19 15:00 23:00 07:00 Intake Total 960 ml 480 ml 240 ml Balance 960 ml 480 ml 240 ml Labs: Laboratory Tests Test 07/18/19 07:35 White Blood Count 6.7 x10^3/uL (4.0-11.0) Red Blood Count 4.51 x10^6/uL (4.30-5.70) Hemoglobin 13.9 g/dL (13.0-17.5) Hematocrit 41.5 % (39.0-53.0) Mean Corpuscular Volume 92 fL (79-100) Mean Corpuscular Hemoglobin 31 pg (25-35) Mean Corpuscular Hemoglobin Concent 33 g/dL (31-37) Red Cell Distribution Width 14.1 % (11.5-14.5) Platelet Count 201 x10^3/uL (140-400) Neutrophils (%) (Auto) 70 % (31-73) Lymphocytes (%) (Auto) 18 % (24-48) L Monocytes (%) (Auto) 9 % (0-9) Eosinophils (%) (Auto) 1 % (0-3) Basophils (%) (Auto) 1 % (0-3) Neutrophils # (Auto) 4.7 x10^3uL (1.8-7.7) Lymphocytes # (Auto) 1.2 x10^3/uL (1.0-4.8) Monocytes # (Auto) 0.6 x10^3/uL (0.0-1.1) Eosinophils # (Auto) 0.1 x10^3/uL (0.0-0.7) Basophils # (Auto) 0.1 x10^3/uL (0.0-0.2) Sodium Level 139 mmol/L (136-145) Potassium Level 4.5 mmol/L (3.5-5.1) Chloride Level 104 mmol/L (98-107) Carbon Dioxide Level 25 mmol/L (21-32) Anion Gap 10 (6-14) Blood Urea Nitrogen 21 mg/dL (8-26) Creatinine 0.9 mg/dL (0.7-1.3) Estimated GFR (Cockcroft-Gault) 86.7 BUN/Creatinine Ratio 23 (6-20) H Glucose Level 91 mg/dL (70-99) Calcium Level 9.2 mg/dL (8.5-10.1) Total Bilirubin 0.3 mg/dL (0.2-1.0) Aspartate Amino Transferase (AST) 22 U/L (15-37) Alanine Aminotransferase (ALT) 31 U/L (16-63) Alkaline Phosphatase 130 U/L (46-116) H Total Protein 6.9 g/dL (6.4-8.2) Albumin 3.6 g/dL (3.4-5.0) Albumin/Globulin Ratio 1.1 (1.0-1.7) Current Medications: I have reviewed the current psychotropics carefully including drug interactions. Risk benefit ratio favors no change other than as noted in my dictated progress note. Diagnosis: Problems: (1) Anxiety disorder (2) Impulse control disorder (3) Schizoaffective disorder, bipolar type (4) Schizoaffective disorder, chronic condition with acute exacerbation (5) Schizophrenia, paranoid, chronic with acute exacerbation LEONARD ASHFORD MD July 18, 2019 22:10
--- NOTE | 2019-07-18 22:24 | PN ---
DATE: 07/17/2019 PSYCHIATRIC PROGRESS NOTE This late entry of 07/16 covers elements not covered in my initial note. SUBJECTIVE: I met with the patient on the evening of 07/16. Per HUNG Briscoe, the patient slept for 5-3/4 hours the previous night. He has been somewhat hypertensive, will defer to Dr. Estrada, started on lisinopril. REVIEW OF SYSTEMS: Ambulation impaired, in wheelchair. No CV, , pulmonary, eye system symptoms on review. MENTAL STATUS EXAMINATION: Reasonably oriented. Speech coherent, rapid at times. Abstraction fair, computation impaired, language function intact, attention span short. Mood and affect grandiose, labile. LABORATORY DATA: Reviewed. IMPRESSION: Schizoaffective disorder, bipolar type, mixed with psychotic features; anxiety disorder, unspecified; impulse control disorder, unspecified; hypertension. Rest unchanged. PLAN: No change from initial note. We are increasing his Trileptal as a mood stabilizer, may consider lithium. Rest unchanged including Haldol Decanoate, medroxyprogesterone, Remeron, Wellbutrin and Neurontin. He is also on Zyprexa p.r.n. LEONARD ASHFORD MD DR: JULIAN/hemal JOB#: [id number] / [id number]
[2019-07-19] MEDS: LEVOTHYROXINE 100 MCG TABLET PO SCH (06:23)
[2019-07-19] MEDS: ACETAMINOPHEN 325 MG TABLET PO PRN ×2 (06:25→13:27)
[2019-07-19 06:43] VITALS: BP 137/96
[2019-07-19] MEDS: buPROPion XL 150 MG TAB.ER.24H PO SCH (08:11)
[2019-07-19] MEDS: NICOTINE 14MG PATCH. TD SCH (08:11)
[2019-07-19] MEDS: PANTOPRAZOLE 40 MG TABLET. PO SCH (08:11)
[2019-07-19] MEDS: CELECOXIB 100 MG CAPSULE PO SCH (08:11)
[2019-07-19] MEDS: CHOLECALCIFEROL (VITAMIN D3) 1,000 UNIT TABLET PO SCH (08:12)
[2019-07-19] MEDS: SERTRALINE 100 MG TABLET. PO SCH (08:12)
[2019-07-19] MEDS: ASPIRIN ENTERIC COATED 81 MG TABLET.DR. PO SCH (08:12)
[2019-07-19] MEDS: LISINOPRIL 20 MG TABLET PO SCH (08:12)
[2019-07-19] MEDS: GABAPENTIN 100 MG CAPSULE. PO SCH ×3 (08:12→19:50)
[2019-07-19] MEDS: DOCUSATE SODIUM 100 MG CAPSULE PO SCH ×2 (08:12→19:50)
[2019-07-19] MEDS: MULTIVITAMIN with MINERAL TABLET. PO SCH (08:12)
[2019-07-19] MEDS: AMMONIUM LACTATE 12% TOPICAL LOTION 226GM BOTTLE. TP SCH ×2 (08:13→19:50)
--- NOTE | 2019-07-19 09:22 | PDOC ---
Exam Note: Rafael Note: This note is a late entry for 07/18/2019 covers elements not covered in my initial note. SUBJECTIVE: The patient was seen on Telehealth rounds in the evening of 07/18/2019. Nursing report was with Geena PERSAUD. Discussed the patient with nursing staff reviewed the chart. He slept 6-1/4 hours previous night. Patient has been urinating on the floor in his room, did last evening and this morning. Trying to roll himself out of bed. I addressed this with him at length individually. He is drowsy. He has been started on lisinopril. This could be dropping his blood pressure which has been running 99/55 mmHg and 109/76 mmHg. We will defer to Dr. Estrada. We may increase Trileptal later. REVIEW OF SYSTEMS: Ambulation impaired, in a wheelchair. No CV, , Pulmonary, Eye system symptoms on review. MENTAL STATUS EXAM: Reasonably oriented. Speech coherent, rapid at times. Abstraction fair. Computation impaired. Language function intact. Attention span short. Mood and affect grandiose, labile. LABORATORY DATA: Reviewed. IMPRESSSION: Schizoaffective disorder, bipolar type, mixed with psychotic features. Anxiety disorder unspecified. Impulse control disorder unspecified. Hypertension. Rest unchanged. PLAN: Unchanged from initial note. Assessment: Vital Signs/I&O: Vital Signs Date Time Temp Pulse Resp B/P (MAP) Pulse Ox O2 Delivery O2 Flow Rate FiO2 07/19/19 08:12 81 137/96 07/19/19 08:00 98.8 99 07/19/19 06:43 20 07/18/19 20:15 Room Air I & O 07/18/19 07/18/19 07/19/19 15:00 23:00 07:00 Intake Total 840 ml 360 ml Balance 840 ml 360 ml Current Medications: I have reviewed the current psychotropics carefully including drug interactions. Risk benefit ratio favors no change other than as noted in my dictated progress note. Diagnosis: Problems: (1) Anxiety disorder (2) Impulse control disorder (3) Schizoaffective disorder, bipolar type (4) Schizoaffective disorder, chronic condition with acute exacerbation (5) Schizophrenia, paranoid, chronic with acute exacerbation LEONARD ASHFORD MD July 19, 2019 09:22
[2019-07-19 16:00] VITALS: BP 147/98
[2019-07-19] MEDS: TAMSULOSIN 0.4 MG CAP.ER.24H. PO SCH (17:30)
[2019-07-19] MEDS: HYDROcodone/APAP 7.5/325MG 1 TAB TABLET PO PRN (18:31)
[2019-07-19] MEDS: MIRTAZAPINE 7.5 MG TABLET. PO SCH (19:50)
--- NOTE | 2019-07-19 22:05 | PDOC ---
Exam Note: Rafael Note: Please also refer to the separate dictated note~for this date of service dictated separately.~Patient seen individually. Discussed the patient with Nursing staff reviewed the chart.~Reviewed interim history and current functioning. Reviewed vital signs,~Labs/ Radiology~and current medications noted below. Continue current treatment with the changes noted in the dictated addendum note Assessment: Vital Signs/I&O: Vital Signs Date Time Temp Pulse Resp B/P (MAP) Pulse Ox O2 Delivery O2 Flow Rate FiO2 07/19/19 20:38 97.7 99 07/19/19 20:34 18 Room Air 07/19/19 16:00 82 147/98 (114) I & O 07/18/19 07/18/19 07/19/19 15:00 23:00 07:00 Intake Total 840 ml 360 ml Balance 840 ml 360 ml Current Medications: Meds: Current Medications Medications (Trade) Dose Ordered Sig/Rober Route PRN Reason Start Time Stop Time Status Last Admin Dose Admin Oxcarbazepine (Trileptal) 600 mg QHS PO 07/19/19 21:00 07/19/19 19:50 I have reviewed the current psychotropics carefully including drug interactions. Risk benefit ratio favors no change other than as noted in my dictated progress note. Diagnosis: Problems: (1) Anxiety disorder (2) Impulse control disorder (3) Schizoaffective disorder, bipolar type (4) Schizoaffective disorder, chronic condition with acute exacerbation (5) Schizophrenia, paranoid, chronic with acute exacerbation LEONARD ASHFORD MD July 19, 2019 22:05
--- NOTE | 2019-07-19 22:40 | PN ---
DATE: 07/19/2019 PSYCHIATRIC PROGRESS NOTE This note covers elements not covered in my initial note 07/19/2019. Per HUNG Briscoe, the patient slept 3-3/4 hours previous night. SUBJECTIVE: He has been urinating at night on the bed and by the side of the bed and nursing staff wonder whether Flomax could contribute to this. We will defer this to Dr. Hall. REVIEW OF SYSTEMS: Ambulation impaired, in a wheelchair. No CV, , pulmonary, eye system symptoms on review. MENTAL STATUS EXAMINATION: Reasonably oriented. Speech coherent, rapid at times. Abstraction fair, computation impaired. Language function intact. Attention span short. Mood and affect remains labile and grandiose. LABORATORY DATA: Reviewed. IMPRESSION: Schizoaffective disorder, bipolar type, mixed with psychotic features. Rest unchanged. PLAN: No change from initial note, but we will increase the Trileptal from 300 mg b.i.d. to 300 mg a.m. and 600 mg at bedtime as a mood stabilizer. Rest unchanged for now. LEONARD ASHFORD MD DR: JULIAN/hemal JOB#: [id number] / [id number]
[2019-07-20] MEDS: HYDROcodone/APAP 7.5/325MG 1 TAB TABLET PO PRN ×2 (00:15→21:08)
[2019-07-20] MEDS: LEVOTHYROXINE 100 MCG TABLET PO SCH (06:03)
[2019-07-20 06:15] VITALS: BP 112/74
[2019-07-20] MEDS: AMMONIUM LACTATE 12% TOPICAL LOTION 226GM BOTTLE. TP SCH ×2 (09:00→21:00)
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
[2019-07-20] MEDS: GABAPENTIN 100 MG CAPSULE. PO SCH ×3 (11:56→21:08)
[2019-07-20] MEDS: buPROPion XL 150 MG TAB.ER.24H PO SCH (12:23)
[2019-07-20] MEDS: DOCUSATE SODIUM 100 MG CAPSULE PO SCH ×2 (12:24→21:08)
[2019-07-20] MEDS: TAMSULOSIN 0.4 MG CAP.ER.24H. PO SCH ×2 (12:24→12:37)
[2019-07-20] MEDS: SERTRALINE 100 MG TABLET. PO SCH (12:24)
[2019-07-20] MEDS: CELECOXIB 100 MG CAPSULE PO SCH (12:24)
[2019-07-20] MEDS: ASPIRIN ENTERIC COATED 81 MG TABLET.DR. PO SCH (12:25)
[2019-07-20] MEDS: CHOLECALCIFEROL (VITAMIN D3) 1,000 UNIT TABLET PO SCH (12:25)
[2019-07-20] MEDS: PANTOPRAZOLE 40 MG TABLET. PO SCH (12:25)
[2019-07-20] MEDS: MULTIVITAMIN with MINERAL TABLET. PO SCH (12:25)
[2019-07-20] MEDS: NICOTINE 14MG PATCH. TD SCH (12:26)
[2019-07-20 12:29] VITALS: BP 106/76
[2019-07-20] MEDS: LISINOPRIL 20 MG TABLET PO SCH (12:29)
[2019-07-20 15:49] VITALS: BP 132/89
[2019-07-20] MEDS: ACETAMINOPHEN 325 MG TABLET PO PRN (17:50)
[2019-07-20] MEDS: MIRTAZAPINE 7.5 MG TABLET. PO SCH (21:08)
--- NOTE | 2019-07-20 22:04 | PDOC ---
Exam Note: Rafael Note: Please also refer to the separate dictated note~for this date of service dictated separately.~Patient seen individually. Discussed the patient with Nursing staff reviewed the chart.~Reviewed interim history and current functioning. Reviewed vital signs,~Labs/ Radiology~and current medications noted below. Continue current treatment with the changes noted in the dictated addendum note Assessment: Vital Signs/I&O: Vital Signs Date Time Temp Pulse Resp B/P (MAP) Pulse Ox O2 Delivery O2 Flow Rate FiO2 07/20/19 21:08 18 Room Air 07/20/19 20:21 98.2 98 07/20/19 15:49 98 132/89 (103) I & O 07/19/19 07/19/19 07/20/19 15:00 23:00 07:00 Intake Total 960 ml 720 ml Balance 960 ml 720 ml Current Medications: Meds: Current Medications Medications (Trade) Dose Ordered Sig/Rober Route PRN Reason Start Time Stop Time Status Last Admin Dose Admin Oxcarbazepine (Trileptal) 300 mg DAILY PO 07/20/19 09:00 07/20/19 12:26 I have reviewed the current psychotropics carefully including drug interactions. Risk benefit ratio favors no change other than as noted in my dictated progress note. Diagnosis: Problems: (1) Anxiety disorder (2) Impulse control disorder (3) Schizoaffective disorder, bipolar type (4) Schizoaffective disorder, chronic condition with acute exacerbation (5) Schizophrenia, paranoid, chronic with acute exacerbation LEONARD ASHFORD MD July 20, 2019 22:03
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
[2019-07-21] MEDS: LEVOTHYROXINE 100 MCG TABLET PO SCH (05:43)
[2019-07-21 06:21] VITALS: BP 115/79
[2019-07-21] MEDS: buPROPion XL 150 MG TAB.ER.24H PO SCH (08:06)
[2019-07-21] MEDS: MULTIVITAMIN with MINERAL TABLET. PO SCH (08:06)
[2019-07-21] MEDS: NICOTINE 14MG PATCH. TD SCH (08:06)
[2019-07-21] MEDS: DOCUSATE SODIUM 100 MG CAPSULE PO SCH ×2 (08:06→20:55)
[2019-07-21] MEDS: TAMSULOSIN 0.4 MG CAP.ER.24H. PO SCH (08:07)
[2019-07-21] MEDS: LISINOPRIL 20 MG TABLET PO SCH (08:07)
[2019-07-21] MEDS: PANTOPRAZOLE 40 MG TABLET. PO SCH (08:07)
[2019-07-21] MEDS: SERTRALINE 100 MG TABLET. PO SCH (08:07)
[2019-07-21] MEDS: ASPIRIN ENTERIC COATED 81 MG TABLET.DR. PO SCH (08:07)
[2019-07-21] MEDS: CELECOXIB 100 MG CAPSULE PO SCH (08:07)
[2019-07-21] MEDS: AMMONIUM LACTATE 12% TOPICAL LOTION 226GM BOTTLE. TP SCH ×2 (08:08→20:53)
[2019-07-21] MEDS: CHOLECALCIFEROL (VITAMIN D3) 1,000 UNIT TABLET PO SCH (08:08)
[2019-07-21] MEDS: ACETAMINOPHEN 325 MG TABLET PO PRN (08:09)
[2019-07-21] MEDS: GABAPENTIN 100 MG CAPSULE. PO SCH ×3 (08:09→20:55)
[2019-07-21 16:31] VITALS: BP 151/100
[2019-07-21] MEDS: MIRTAZAPINE 7.5 MG TABLET. PO SCH (20:55)
--- NOTE | 2019-07-21 21:57 | PDOC ---
Exam Note: Rafael Note: Please also refer to the separate dictated note~for this date of service dictated separately.~Patient seen individually. Discussed the patient with Nursing staff reviewed the chart.~Reviewed interim history and current functioning. Reviewed vital signs,~Labs/ Radiology~and current medications noted below. Continue current treatment with the changes noted in the dictated addendum note Assessment: Vital Signs/I&O: Vital Signs Date Time Temp Pulse Resp B/P (MAP) Pulse Ox O2 Delivery O2 Flow Rate FiO2 07/21/19 21:16 98.4 96 07/21/19 16:31 96 22 151/100 (117) Room Air I & O 07/20/19 07/20/19 07/21/19 15:00 23:00 07:00 Intake Total 960 ml 640 ml Balance 960 ml 640 ml Current Medications: I have reviewed the current psychotropics carefully including drug interactions. Risk benefit ratio favors no change other than as noted in my dictated progress note. Diagnosis: Problems: (1) Anxiety disorder (2) Impulse control disorder (3) Schizoaffective disorder, bipolar type (4) Schizoaffective disorder, chronic condition with acute exacerbation (5) Schizophrenia, paranoid, chronic with acute exacerbation LEONARD ASHFORD MD July 21, 2019 21:57
[2019-07-22] MEDS: LEVOTHYROXINE 100 MCG TABLET PO SCH (05:25)
[2019-07-22 06:02] VITALS: BP 175/84
[2019-07-22] MEDS: NICOTINE 14MG PATCH. TD SCH (08:09)
[2019-07-22] MEDS: buPROPion XL 150 MG TAB.ER.24H PO SCH (08:09)
[2019-07-22] MEDS: TAMSULOSIN 0.4 MG CAP.ER.24H. PO SCH (08:10)
[2019-07-22] MEDS: CHOLECALCIFEROL (VITAMIN D3) 1,000 UNIT TABLET PO SCH (08:10)
[2019-07-22] MEDS: MULTIVITAMIN with MINERAL TABLET. PO SCH (08:10)
[2019-07-22] MEDS: PANTOPRAZOLE 40 MG TABLET. PO SCH (08:10)
[2019-07-22] MEDS: CELECOXIB 100 MG CAPSULE PO SCH (08:10)
[2019-07-22] MEDS: LISINOPRIL 20 MG TABLET PO SCH (08:10)
[2019-07-22] MEDS: ASPIRIN ENTERIC COATED 81 MG TABLET.DR. PO SCH (08:11)
[2019-07-22] MEDS: DOCUSATE SODIUM 100 MG CAPSULE PO SCH ×2 (08:11→20:53)
[2019-07-22] MEDS: SERTRALINE 100 MG TABLET. PO SCH (08:11)
[2019-07-22] MEDS: AMMONIUM LACTATE 12% TOPICAL LOTION 226GM BOTTLE. TP SCH ×2 (08:11→20:55)
[2019-07-22] MEDS: ACETAMINOPHEN 325 MG TABLET PO PRN ×2 (08:13→13:14)
[2019-07-22] MEDS: GABAPENTIN 100 MG CAPSULE. PO SCH ×3 (08:13→20:53)
[2019-07-22 08:47] LABS: BASO % 1 % (0-3); EOS % 1 % (0-3); HEMATOCRIT 42.1 % (39.0-53.0); HEMOGLOBIN 14.4 g/dL (13.0-17.5); LYMPH # 1.2 x10^3/uL (1.0-4.8); LYMPH % 18 % (24-48); MEAN CORPUSCULAR HEMOGLOBIN 31 pg (25-35); MEAN CORPUSCULAR HGB CONC 34 g/dL (31-37); MEAN CORPUSCULAR VOLUME 91 fL (79-100); MONO # 0.4 x10^3/uL (0.0-1.1); MONO % 7 % (0-9); NEUT # 4.9 x10^3uL (1.8-7.7); NEUT % 74 % (31-73); PLATELET COUNT 209 x10^3/uL (140-400); RED BLOOD COUNT 4.66 x10^6/uL (4.30-5.70); WHITE BLOOD COUNT 6.6 x10^3/uL (4.0-11.0)
[2019-07-22 08:55] LABS: ALBUMIN 3.9 g/dL (3.4-5.0); ALBUMIN/GLOBULIN RATIO 1.1 (1.0-1.7); CALCIUM 9.6 mg/dL (8.5-10.1); CREATININE 0.8 mg/dL (0.7-1.3); GFR 99.3; POTASSIUM 4.5 mmol/L (3.5-5.1); TOTAL BILIRUBIN 0.3 mg/dL (0.2-1.0); TOTAL PROTEIN 7.6 g/dL (6.4-8.2)
[2019-07-22] MEDS ORDERED: medroxyPROGESTERone IM 150 MG/ML VIAL. IM SCH (09:00)
[2019-07-22 16:11] VITALS: BP 145/92
[2019-07-22] MEDS: MIRTAZAPINE 7.5 MG TABLET. PO SCH (20:53)
[2019-07-22] MEDS: HYDROcodone/APAP 7.5/325MG 1 TAB TABLET PO PRN (20:54)
--- NOTE | 2019-07-22 22:27 | PDOC ---
Exam Note: Rafael Note: Please also refer to the separate dictated note~for this date of service dictated separately.~Patient seen individually. Discussed the patient with Nursing staff reviewed the chart.~Reviewed interim history and current functioning. Reviewed vital signs,~Labs/ Radiology~and current medications noted below. Continue current treatment with the changes noted in the dictated addendum note Assessment: Vital Signs/I&O: Vital Signs Date Time Temp Pulse Resp B/P (MAP) Pulse Ox O2 Delivery O2 Flow Rate FiO2 07/22/19 22:02 96 07/22/19 20:58 98.1 07/22/19 16:11 83 20 145/92 (109) Room Air I & O 07/21/19 07/21/19 07/22/19 15:00 23:00 07:00 Intake Total 840 ml 840 ml Balance 840 ml 840 ml Labs: Laboratory Tests Test 07/22/19 08:10 White Blood Count 6.6 x10^3/uL (4.0-11.0) Red Blood Count 4.66 x10^6/uL (4.30-5.70) Hemoglobin 14.4 g/dL (13.0-17.5) Hematocrit 42.1 % (39.0-53.0) Mean Corpuscular Volume 91 fL (79-100) Mean Corpuscular Hemoglobin 31 pg (25-35) Mean Corpuscular Hemoglobin Concent 34 g/dL (31-37) Red Cell Distribution Width 14.0 % (11.5-14.5) Platelet Count 209 x10^3/uL (140-400) Neutrophils (%) (Auto) 74 % (31-73) H Lymphocytes (%) (Auto) 18 % (24-48) L Monocytes (%) (Auto) 7 % (0-9) Eosinophils (%) (Auto) 1 % (0-3) Basophils (%) (Auto) 1 % (0-3) Neutrophils # (Auto) 4.9 x10^3uL (1.8-7.7) Lymphocytes # (Auto) 1.2 x10^3/uL (1.0-4.8) Monocytes # (Auto) 0.4 x10^3/uL (0.0-1.1) Eosinophils # (Auto) 0.0 x10^3/uL (0.0-0.7) Basophils # (Auto) 0.0 x10^3/uL (0.0-0.2) Sodium Level 133 mmol/L (136-145) L Potassium Level 4.5 mmol/L (3.5-5.1) Chloride Level 99 mmol/L (98-107) Carbon Dioxide Level 22 mmol/L (21-32) Anion Gap 12 (6-14) Blood Urea Nitrogen 14 mg/dL (8-26) Creatinine 0.8 mg/dL (0.7-1.3) Estimated GFR (Cockcroft-Gault) 99.3 BUN/Creatinine Ratio 18 (6-20) Glucose Level 95 mg/dL (70-99) Calcium Level 9.6 mg/dL (8.5-10.1) Total Bilirubin 0.3 mg/dL (0.2-1.0) Aspartate Amino Transferase (AST) 23 U/L (15-37) Alanine Aminotransferase (ALT) 33 U/L (16-63) Alkaline Phosphatase 140 U/L (46-116) H Total Protein 7.6 g/dL (6.4-8.2) Albumin 3.9 g/dL (3.4-5.0) Albumin/Globulin Ratio 1.1 (1.0-1.7) Current Medications: Meds: Current Medications Medications (Trade) Dose Ordered Sig/Rober Route PRN Reason Start Time Stop Time Status Last Admin Dose Admin Medroxyprogesterone Acetate (Depo-Provera Im) 150 mg QMONTH IM 07/22/19 09:00 07/22/19 08:30 I have reviewed the current psychotropics carefully including drug interactions. Risk benefit ratio favors no change other than as noted in my dictated progress note. Diagnosis: Problems: (1) Anxiety disorder (2) Impulse control disorder (3) Schizoaffective disorder, bipolar type (4) Schizoaffective disorder, chronic condition with acute exacerbation (5) Schizophrenia, paranoid, chronic with acute exacerbation LEONARD ASHFORD MD July 22, 2019 22:26
[2019-07-23] MEDS: LEVOTHYROXINE 100 MCG TABLET PO SCH (05:38)
[2019-07-23 06:41] VITALS: BP 103/72
--- NOTE | 2019-07-23 07:48 | PDOC ---
Exam Note: Rafael Note: This note is a late entry for 07/21/2019 covers elements not covered in my initial note. Subjective: The patient was seen face to face in the evening of 07/21/2019. Nursing report was with Cristel PERSAUD. Discussed the patient with nursing staff reviewed the chart. He slept 5-1/2 hours previous night. He has been less hyperverbal, still urinated on the floor at night even though Flomax was changed to morning. Review of Systems: Ambulation impaired, in wheelchair. No CV, GI/, Pulmonary, Eye system symptoms on review. Mental Status Exam: Oriented reasonably. Speech coherent, somewhat pressured. Abstraction fair. Computation impaired. Language function intact. He is quite hyperverbal, anxious, restless, distractible but very pleasant, appreciative of the visit, to some extent less grandiose. Attention span short. No suicidal or homicidal ideation. Laboratory Data: Reviewed. Impression: Schizoaffective disorder, bipolar type, mixed with psychotic features. Rest unchanged. Plan: No change from initial note. May need to increase Trileptal further. Assessment: Vital Signs/I&O: Vital Signs Date Time Temp Pulse Resp B/P (MAP) Pulse Ox O2 Delivery O2 Flow Rate FiO2 07/23/19 06:41 97.8 82 14 103/72 (82) 97 07/22/19 16:11 Room Air I & O 07/22/19 07/22/19 07/23/19 15:00 23:00 07:00 Intake Total 840 ml 360 ml Balance 840 ml 360 ml Labs: Laboratory Tests Test 07/22/19 08:10 White Blood Count 6.6 x10^3/uL (4.0-11.0) Red Blood Count 4.66 x10^6/uL (4.30-5.70) Hemoglobin 14.4 g/dL (13.0-17.5) Hematocrit 42.1 % (39.0-53.0) Mean Corpuscular Volume 91 fL (79-100) Mean Corpuscular Hemoglobin 31 pg (25-35) Mean Corpuscular Hemoglobin Concent 34 g/dL (31-37) Red Cell Distribution Width 14.0 % (11.5-14.5) Platelet Count 209 x10^3/uL (140-400) Neutrophils (%) (Auto) 74 % (31-73) H Lymphocytes (%) (Auto) 18 % (24-48) L Monocytes (%) (Auto) 7 % (0-9) Eosinophils (%) (Auto) 1 % (0-3) Basophils (%) (Auto) 1 % (0-3) Neutrophils # (Auto) 4.9 x10^3uL (1.8-7.7) Lymphocytes # (Auto) 1.2 x10^3/uL (1.0-4.8) Monocytes # (Auto) 0.4 x10^3/uL (0.0-1.1) Eosinophils # (Auto) 0.0 x10^3/uL (0.0-0.7) Basophils # (Auto) 0.0 x10^3/uL (0.0-0.2) Sodium Level 133 mmol/L (136-145) L Potassium Level 4.5 mmol/L (3.5-5.1) Chloride Level 99 mmol/L (98-107) Carbon Dioxide Level 22 mmol/L (21-32) Anion Gap 12 (6-14) Blood Urea Nitrogen 14 mg/dL (8-26) Creatinine 0.8 mg/dL (0.7-1.3) Estimated GFR (Cockcroft-Gault) 99.3 BUN/Creatinine Ratio 18 (6-20) Glucose Level 95 mg/dL (70-99) Calcium Level 9.6 mg/dL (8.5-10.1) Total Bilirubin 0.3 mg/dL (0.2-1.0) Aspartate Amino Transferase (AST) 23 U/L (15-37) Alanine Aminotransferase (ALT) 33 U/L (16-63) Alkaline Phosphatase 140 U/L (46-116) H Total Protein 7.6 g/dL (6.4-8.2) Albumin 3.9 g/dL (3.4-5.0) Albumin/Globulin Ratio 1.1 (1.0-1.7) Current Medications: Meds: Current Medications Medications (Trade) Dose Ordered Sig/Rober Route PRN Reason Start Time Stop Time Status Last Admin Dose Admin Medroxyprogesterone Acetate (Depo-Provera Im) 150 mg QMONTH IM 07/22/19 09:00 07/22/19 08:30 I have reviewed the current psychotropics carefully including drug interactions. Risk benefit ratio favors no change other than as noted in my dictated progress note. Diagnosis: Problems: (1) Anxiety disorder (2) Impulse control disorder (3) Schizoaffective disorder, bipolar type (4) Schizoaffective disorder, chronic condition with acute exacerbation (5) Schizophrenia, paranoid, chronic with acute exacerbation LEONARD ASHFORD MD July 23, 2019 07:48
--- NOTE | 2019-07-23 07:49 | PDOC ---
Exam Note: Rafael Note: This note is a late entry for 07/22/2019 covers elements not covered in my initial note. Subjective: The patient was seen face to face in the evening of 07/22/2019 in his room. Nursing report was with Cristel PERSAUD. Discussed the patient with nursing staff reviewed the chart. The patient has been obsessive, anxious, talking to himself that he is on lithium. Nursing staff have corrected this that in fact he is on a mood stabilizer Trileptal and I did this at length with him individually as well but he remains fixated. He has been less loud and less disruptive. Review of Systems: Ambulation impaired, in wheelchair. No CV, GI/, Pulmonary, Eye system symptoms on review. Mental Status Exam: Oriented to himself and situation. Speech coherent, rapid at times. Abstraction is fair. Computation is impaired. Language function is intact. Mood and affect remains somewhat grandiose. Laboratory Data: Reviewed. Impression: Schizoaffective disorder, bipolar type, mixed with psychotic features. Rest unchanged. Plan: No change from initial note. May need to increase Trileptal further. Continue psychotropics unchanged. Assessment: Vital Signs/I&O: Vital Signs Date Time Temp Pulse Resp B/P (MAP) Pulse Ox O2 Delivery O2 Flow Rate FiO2 07/23/19 06:41 97.8 82 14 103/72 (82) 97 07/22/19 16:11 Room Air I & O 07/22/19 07/22/19 07/23/19 15:00 23:00 07:00 Intake Total 840 ml 360 ml Balance 840 ml 360 ml Labs: Laboratory Tests Test 07/22/19 08:10 White Blood Count 6.6 x10^3/uL (4.0-11.0) Red Blood Count 4.66 x10^6/uL (4.30-5.70) Hemoglobin 14.4 g/dL (13.0-17.5) Hematocrit 42.1 % (39.0-53.0) Mean Corpuscular Volume 91 fL (79-100) Mean Corpuscular Hemoglobin 31 pg (25-35) Mean Corpuscular Hemoglobin Concent 34 g/dL (31-37) Red Cell Distribution Width 14.0 % (11.5-14.5) Platelet Count 209 x10^3/uL (140-400) Neutrophils (%) (Auto) 74 % (31-73) H Lymphocytes (%) (Auto) 18 % (24-48) L Monocytes (%) (Auto) 7 % (0-9) Eosinophils (%) (Auto) 1 % (0-3) Basophils (%) (Auto) 1 % (0-3) Neutrophils # (Auto) 4.9 x10^3uL (1.8-7.7) Lymphocytes # (Auto) 1.2 x10^3/uL (1.0-4.8) Monocytes # (Auto) 0.4 x10^3/uL (0.0-1.1) Eosinophils # (Auto) 0.0 x10^3/uL (0.0-0.7) Basophils # (Auto) 0.0 x10^3/uL (0.0-0.2) Sodium Level 133 mmol/L (136-145) L Potassium Level 4.5 mmol/L (3.5-5.1) Chloride Level 99 mmol/L (98-107) Carbon Dioxide Level 22 mmol/L (21-32) Anion Gap 12 (6-14) Blood Urea Nitrogen 14 mg/dL (8-26) Creatinine 0.8 mg/dL (0.7-1.3) Estimated GFR (Cockcroft-Gault) 99.3 BUN/Creatinine Ratio 18 (6-20) Glucose Level 95 mg/dL (70-99) Calcium Level 9.6 mg/dL (8.5-10.1) Total Bilirubin 0.3 mg/dL (0.2-1.0) Aspartate Amino Transferase (AST) 23 U/L (15-37) Alanine Aminotransferase (ALT) 33 U/L (16-63) Alkaline Phosphatase 140 U/L (46-116) H Total Protein 7.6 g/dL (6.4-8.2) Albumin 3.9 g/dL (3.4-5.0) Albumin/Globulin Ratio 1.1 (1.0-1.7) Current Medications: Meds: Current Medications Medications (Trade) Dose Ordered Sig/Rober Route PRN Reason Start Time Stop Time Status Last Admin Dose Admin Medroxyprogesterone Acetate (Depo-Provera Im) 150 mg QMONTH IM 07/22/19 09:00 07/22/19 08:30 I have reviewed the current psychotropics carefully including drug interactions. Risk benefit ratio favors no change other than as noted in my dictated progress note. Diagnosis: Problems: (1) Anxiety disorder (2) Impulse control disorder (3) Schizoaffective disorder, bipolar type (4) Schizoaffective disorder, chronic condition with acute exacerbation (5) Schizophrenia, paranoid, chronic with acute exacerbation LEONARD ASHFORD MD July 23, 2019 07:49
[2019-07-23] MEDS: DOCUSATE SODIUM 100 MG CAPSULE PO SCH ×2 (08:09→20:09)
[2019-07-23] MEDS: AMMONIUM LACTATE 12% TOPICAL LOTION 226GM BOTTLE. TP SCH ×2 (08:09→20:10)
[2019-07-23] MEDS: GABAPENTIN 100 MG CAPSULE. PO SCH ×3 (08:09→20:10)
[2019-07-23] MEDS: SERTRALINE 100 MG TABLET. PO SCH (08:09)
[2019-07-23] MEDS: CHOLECALCIFEROL (VITAMIN D3) 1,000 UNIT TABLET PO SCH (08:09)
[2019-07-23] MEDS: ASPIRIN ENTERIC COATED 81 MG TABLET.DR. PO SCH (08:10)
[2019-07-23] MEDS: MULTIVITAMIN with MINERAL TABLET. PO SCH (08:10)
[2019-07-23] MEDS: CELECOXIB 100 MG CAPSULE PO SCH (08:10)
[2019-07-23] MEDS: buPROPion XL 150 MG TAB.ER.24H PO SCH (08:10)
[2019-07-23] MEDS: PANTOPRAZOLE 40 MG TABLET. PO SCH (08:10)
[2019-07-23] MEDS: LISINOPRIL 20 MG TABLET PO SCH (08:10)
[2019-07-23] MEDS: NICOTINE 14MG PATCH. TD SCH (08:10)
[2019-07-23] MEDS: ACETAMINOPHEN 325 MG TABLET PO PRN (08:10)
[2019-07-23] MEDS: TAMSULOSIN 0.4 MG CAP.ER.24H. PO SCH (08:12)
[2019-07-23 16:02] VITALS: BP 108/78
[2019-07-23] MEDS: MIRTAZAPINE 7.5 MG TABLET. PO SCH (20:10)
[2019-07-23] MEDS: HYDROcodone/APAP 7.5/325MG 1 TAB TABLET PO PRN (20:10)
[2019-07-23] MEDS: MAGNESIUM HYDROXIDE 2,400 MG/30 ML ORAL.SUSP. PO PRN (20:47)
--- NOTE | 2019-07-23 21:56 | PDOC ---
Exam Note: Rafael Note: Please also refer to the separate dictated note~for this date of service dictated separately.~Patient seen individually. Discussed the patient with Nursing staff reviewed the chart.~Reviewed interim history and current functioning. Reviewed vital signs,~Labs/ Radiology~and current medications noted below. Continue current treatment with the changes noted in the dictated addendum note Assessment: Vital Signs/I&O: Vital Signs Date Time Temp Pulse Resp B/P (MAP) Pulse Ox O2 Delivery O2 Flow Rate FiO2 07/23/19 21:22 97 07/23/19 18:02 98.4 07/23/19 16:02 83 18 108/78 (88) Room Air I & O 07/22/19 07/22/19 07/23/19 15:00 23:00 07:00 Intake Total 840 ml 360 ml Balance 840 ml 360 ml Current Medications: I have reviewed the current psychotropics carefully including drug interactions. Risk benefit ratio favors no change other than as noted in my dictated progress note. Diagnosis: Problems: (1) Anxiety disorder (2) Impulse control disorder (3) Schizoaffective disorder, bipolar type (4) Schizoaffective disorder, chronic condition with acute exacerbation (5) Schizophrenia, paranoid, chronic with acute exacerbation LEONARD ASHFORD MD July 23, 2019 21:56
[2019-07-24] MEDS: LEVOTHYROXINE 100 MCG TABLET PO SCH (05:58)
[2019-07-24 06:16] VITALS: BP 123/86
--- NOTE | 2019-07-24 07:04 | PDOC ---
Exam Note: Rafael Note: This note is a late entry for 07/23/2019 covers elements not covered in my initial note. Subjective: The patient was seen face to face in the evening of 07/23/2019 in his room. Nursing report was with Deysi PERSAUD. Discussed the patient with nursing staff reviewed the chart. He slept 6-1/4 hours. The patient has been quieter per nursing report, less hyperverbal, less grandiose, more redirectable. Review of Systems: Ambulation impaired, in wheelchair. No CV, GI/, Pulmonary, Eye system symptoms on review. Mental Status Exam: Oriented to himself and situation. Speech coherent, rapid at times. Abstraction is fair. Computation is impaired. Language function is intact. Mood and affect remains somewhat grandiose. Laboratory Data: Reviewed. Impression: Schizoaffective disorder, bipolar type, mixed with psychotic features. Rest unchanged. Plan: No change from initial note. We may need to increase Trileptal further in due course. Assessment: Vital Signs/I&O: Vital Signs Date Time Temp Pulse Resp B/P (MAP) Pulse Ox O2 Delivery O2 Flow Rate FiO2 07/24/19 06:16 98.2 74 20 123/86 (98) 96 07/23/19 16:02 Room Air I & O 07/23/19 07/23/19 07/24/19 15:00 23:00 07:00 Intake Total 600 ml 360 ml Balance 600 ml 360 ml Current Medications: I have reviewed the current psychotropics carefully including drug interactions. Risk benefit ratio favors no change other than as noted in my dictated progress note. Diagnosis: Problems: (1) Anxiety disorder (2) Impulse control disorder (3) Schizoaffective disorder, bipolar type (4) Schizoaffective disorder, chronic condition with acute exacerbation (5) Schizophrenia, paranoid, chronic with acute exacerbation LEONARD ASHFORD MD July 24, 2019 07:04
[2019-07-24 08:15] LABS: BASO % 1 % (0-3); EOS # 0.1 x10^3/uL (0.0-0.7); EOS % 1 % (0-3); HEMATOCRIT 43.1 % (39.0-53.0); HEMOGLOBIN 14.4 g/dL (13.0-17.5); LYMPH # 1.4 x10^3/uL (1.0-4.8); LYMPH % 22 % (24-48); MEAN CORPUSCULAR HEMOGLOBIN 30 pg (25-35); MEAN CORPUSCULAR HGB CONC 33 g/dL (31-37); MEAN CORPUSCULAR VOLUME 91 fL (79-100); MONO # 0.5 x10^3/uL (0.0-1.1); MONO % 7 % (0-9); NEUT # 4.5 x10^3uL (1.8-7.7); NEUT % 70 % (31-73); PLATELET COUNT 205 x10^3/uL (140-400); RED BLOOD COUNT 4.75 x10^6/uL (4.30-5.70); RED CELL DISTRIBUTION WIDTH 13.8 % (11.5-14.5); WHITE BLOOD COUNT 6.5 x10^3/uL (4.0-11.0)
[2019-07-24] MEDS: ASPIRIN ENTERIC COATED 81 MG TABLET.DR. PO SCH (08:19)
[2019-07-24] MEDS: buPROPion XL 150 MG TAB.ER.24H PO SCH (08:19)
[2019-07-24] MEDS: PANTOPRAZOLE 40 MG TABLET. PO SCH (08:19)
[2019-07-24] MEDS: DOCUSATE SODIUM 100 MG CAPSULE PO SCH ×2 (08:20→20:06)
[2019-07-24] MEDS: CELECOXIB 100 MG CAPSULE PO SCH (08:20)
[2019-07-24] MEDS: TAMSULOSIN 0.4 MG CAP.ER.24H. PO SCH (08:20)
[2019-07-24] MEDS: GABAPENTIN 100 MG CAPSULE. PO SCH ×3 (08:20→20:06)
[2019-07-24] MEDS: LISINOPRIL 20 MG TABLET PO SCH (08:20)
[2019-07-24] MEDS: MULTIVITAMIN with MINERAL TABLET. PO SCH (08:21)
[2019-07-24] MEDS: CHOLECALCIFEROL (VITAMIN D3) 1,000 UNIT TABLET PO SCH (08:21)
[2019-07-24] MEDS: AMMONIUM LACTATE 12% TOPICAL LOTION 226GM BOTTLE. TP SCH ×2 (08:22→20:06)
[2019-07-24] MEDS: SERTRALINE 100 MG TABLET. PO SCH (08:22)
[2019-07-24] MEDS: NICOTINE 14MG PATCH. TD SCH (08:22)
[2019-07-24 08:33] LABS: ALBUMIN 3.9 g/dL (3.4-5.0); ALBUMIN/GLOBULIN RATIO 1.1 (1.0-1.7); CALCIUM 9.8 mg/dL (8.5-10.1); CREATININE 0.8 mg/dL (0.7-1.3); GFR 99.3; POTASSIUM 4.7 mmol/L (3.5-5.1); TOTAL BILIRUBIN 0.3 mg/dL (0.2-1.0); TOTAL PROTEIN 7.6 g/dL (6.4-8.2)
[2019-07-24 16:14] VITALS: BP 157/99
[2019-07-24] MEDS: ACETAMINOPHEN 325 MG TABLET PO PRN (20:06)
[2019-07-24] MEDS: MIRTAZAPINE 7.5 MG TABLET. PO SCH (20:06)
[2019-07-25] MEDS: LEVOTHYROXINE 100 MCG TABLET PO SCH (05:27)
[2019-07-25] MEDS: HYDROcodone/APAP 7.5/325MG 1 TAB TABLET PO PRN ×2 (05:28→20:04)
[2019-07-25 05:41] VITALS: BP 128/88
[2019-07-25] MEDS: LISINOPRIL 20 MG TABLET PO SCH (08:07)
[2019-07-25] MEDS: TAMSULOSIN 0.4 MG CAP.ER.24H. PO SCH (08:07)
[2019-07-25] MEDS: SERTRALINE 100 MG TABLET. PO SCH (08:07)
[2019-07-25] MEDS: MULTIVITAMIN with MINERAL TABLET. PO SCH (08:08)
[2019-07-25] MEDS: CHOLECALCIFEROL (VITAMIN D3) 1,000 UNIT TABLET PO SCH (08:08)
[2019-07-25] MEDS: DOCUSATE SODIUM 100 MG CAPSULE PO SCH ×2 (08:08→20:04)
[2019-07-25] MEDS: ASPIRIN ENTERIC COATED 81 MG TABLET.DR. PO SCH (08:08)
[2019-07-25] MEDS: CELECOXIB 100 MG CAPSULE PO SCH (08:08)
[2019-07-25] MEDS: GABAPENTIN 100 MG CAPSULE. PO SCH ×3 (08:08→20:04)
[2019-07-25] MEDS: buPROPion XL 150 MG TAB.ER.24H PO SCH (08:08)
[2019-07-25] MEDS: PANTOPRAZOLE 40 MG TABLET. PO SCH (08:08)
[2019-07-25] MEDS: NICOTINE 14MG PATCH. TD SCH (08:09)
[2019-07-25] MEDS: AMMONIUM LACTATE 12% TOPICAL LOTION 226GM BOTTLE. TP SCH ×2 (08:10→20:05)
--- NOTE | 2019-07-25 08:15 | PDOC ---
Exam Note: Rafael Note: This is a late entry for DOS 07/24/2019. Please also refer to the separate dictated note~for this date of service dictated separately.~Patient seen individually. Discussed the patient with Nursing staff reviewed the chart.~Reviewed interim history and current functioning. Reviewed vital signs,~Labs/ Radiology~and current medications noted below. Continue current treatment with the changes noted in the dictated addendum note Assessment: Vital Signs/I&O: Vital Signs Date Time Temp Pulse Resp B/P (MAP) Pulse Ox O2 Delivery O2 Flow Rate FiO2 07/25/19 08:07 75 128/88 07/25/19 06:28 96 07/25/19 05:41 98.0 18 Room Air I & O 07/24/19 07/24/19 07/25/19 14:59 22:59 06:59 Intake Total 720 ml 720 ml Balance 720 ml 720 ml Current Medications: I have reviewed the current psychotropics carefully including drug interactions. Risk benefit ratio favors no change other than as noted in my dictated progress note. Diagnosis: Problems: (1) Anxiety disorder (2) Impulse control disorder (3) Schizoaffective disorder, bipolar type (4) Schizoaffective disorder, chronic condition with acute exacerbation (5) Schizophrenia, paranoid, chronic with acute exacerbation LEONARD ASHFORD MD July 25, 2019 08:15
[2019-07-25 15:55] VITALS: BP 154/115
[2019-07-25 18:28] VITALS: BP 150/94
--- NOTE | 2019-07-25 19:56 | PN ---
DATE: 07/25/2019 SUBJECTIVE: The patient was seen today at the request of the nursing staff. They are concerned about his worsening hyponatremia and accelerated hypertension. The patient now is in bed, lethargic. PHYSICAL EXAMINATION: GENERAL: When I examined him, he looked well and was clearly in no apparent respiratory distress. No pallor, jaundice, cyanosis or thyromegaly. No jugular venous distention. No lower limb edema. VITAL SIGNS: His heart rate was 94, blood pressure 154/115, temperature was 97.5, respiratory rate was 16, and oxygen saturation was 97%. HEAD, EYES, EARS, NOSE AND THROAT: Showed normocephalic, atraumatic. NECK: Supple. HEART: Showed normal first and second heart sounds. No gallop or murmur. CHEST: Clear to auscultation. No crepitation or rhonchi. ABDOMEN: Distended, soft, nontender. NEUROLOGIC: He is grossly intact. LABORATORY DATA: As of yesterday showed a white cell count 6500, hemoglobin 14, hematocrit 43, MCV 91, and platelet count 205,000. His chemistry showed that his serum sodium is trending down from 139 to 133 and down to 131. ASSESSMENT AND PLAN: His hydration is reflected in his declining BUN and serum creatinine. He is on multiple SSRI that might be contributing to his hyponatremia and syndrome of inappropriate antidiuretic hormone including Wellbutrin as well as mirtazapine. He is on lisinopril 20 mg once a day, however, is also on Celebrex, which can cause fluid retention and pseudo-tolerance and therefore, I recommended to discontinue Celebrex and I will obviously consulted with Dr. Bey regarding discontinuation of his Wellbutrin as well as mirtazapine. It seemed appropriate. EVGENY ZAVALA MD DR: VAHID/hemal JOB#: [id number] / [id number]
[2019-07-25] MEDS: MIRTAZAPINE 7.5 MG TABLET. PO SCH (20:04)
--- NOTE | 2019-07-25 22:06 | PDOC ---
Exam Note: Rafael Note: Please also refer to the separate dictated note~for this date of service dictated separately.~Patient seen individually. Discussed the patient with Nursing staff reviewed the chart.~Reviewed interim history and current functioning. Reviewed vital signs,~Labs/ Radiology~and current medications noted below. Continue current treatment with the changes noted in the dictated addendum note Assessment: Vital Signs/I&O: Vital Signs Date Time Temp Pulse Resp B/P (MAP) Pulse Ox O2 Delivery O2 Flow Rate FiO2 07/25/19 21:04 97 07/25/19 18:35 98.6 07/25/19 18:28 150/94 (112) 07/25/19 15:55 94 16 07/25/19 05:41 Room Air I & O 07/24/19 07/24/19 07/25/19 15:00 23:00 07:00 Intake Total 720 ml 720 ml Balance 720 ml 720 ml Current Medications: Meds: Current Medications Medications (Trade) Dose Ordered Sig/Rober Route PRN Reason Start Time Stop Time Status Last Admin Dose Admin Oxcarbazepine (Trileptal) 600 mg BID PO 07/25/19 21:00 07/25/19 20:04 I have reviewed the current psychotropics carefully including drug interactions. Risk benefit ratio favors no change other than as noted in my dictated progress note. Diagnosis: Problems: (1) Anxiety disorder (2) Impulse control disorder (3) Schizoaffective disorder, bipolar type (4) Schizoaffective disorder, chronic condition with acute exacerbation (5) Schizophrenia, paranoid, chronic with acute exacerbation LEONARD ASHFORD MD July 25, 2019 22:06
[2019-07-26] MEDS: LEVOTHYROXINE 100 MCG TABLET PO SCH (04:42)
[2019-07-26 05:30] VITALS: BP 100/64
[2019-07-26 07:18] LABS: BASO % 1 % (0-3); EOS # 0.1 x10^3/uL (0.0-0.7); EOS % 1 % (0-3); HEMATOCRIT 39.6 % (39.0-53.0); HEMOGLOBIN 13.4 g/dL (13.0-17.5); LYMPH # 1.2 x10^3/uL (1.0-4.8); LYMPH % 16 % (24-48); MEAN CORPUSCULAR HEMOGLOBIN 31 pg (25-35); MEAN CORPUSCULAR HGB CONC 34 g/dL (31-37); MEAN CORPUSCULAR VOLUME 91 fL (79-100); MONO # 0.6 x10^3/uL (0.0-1.1); MONO % 9 % (0-9); NEUT # 5.5 x10^3uL (1.8-7.7); NEUT % 74 % (31-73); PLATELET COUNT 195 x10^3/uL (140-400); RED BLOOD COUNT 4.35 x10^6/uL (4.30-5.70); WHITE BLOOD COUNT 7.4 x10^3/uL (4.0-11.0)
[2019-07-26 07:37] LABS: ALBUMIN 3.5 g/dL (3.4-5.0); ALBUMIN/GLOBULIN RATIO 1.1 (1.0-1.7); CALCIUM 8.9 mg/dL (8.5-10.1); CREATININE 0.8 mg/dL (0.7-1.3); GFR 99.3; POTASSIUM 4.2 mmol/L (3.5-5.1); TOTAL BILIRUBIN 0.3 mg/dL (0.2-1.0); TOTAL PROTEIN 6.8 g/dL (6.4-8.2)
--- NOTE | 2019-07-26 07:39 | PDOC ---
Exam Note: Rafael Note: This note is a late entry for 07/24/2019 covers elements not covered in my initial note. Subjective: The patient was seen face to face in the evening of 07/24/2019 in his room. Nursing report was with Carisa PERSAUD. Discussed the patient with nursing staff reviewed the chart. He slept 6-1/4 hours. The patient went back to bed in the evening, anxious, restless, less hyperverbal. He is fixated that he was taking Lamictal and I corrected that we started him on Trileptal as he was unable to tolerate Depakote in the past. He has been calmer per nursing report. He is compliant with his medications. Complains of some chronic back pain, has leg wound, got dressing changed, will defer to Dr. Hall. Review of Systems: Ambulation impaired, in wheelchair. No CV, GI/, Pulmonary, Eye system symptoms on review. Mental Status Exam: Oriented to himself and situation. He is less hyperverbal. Speech coherent. Abstraction is fair. Computation is impaired. Language function is intact. Mood and affect remains somewhat grandiose. Laboratory Data: Reviewed. Impression: Schizoaffective disorder, bipolar type, mixed with psychotic features. Rest unchanged. Plan: No change from initial note. Assessment: Vital Signs/I&O: Vital Signs Date Time Temp Pulse Resp B/P (MAP) Pulse Ox O2 Delivery O2 Flow Rate FiO2 07/26/19 05:30 97.5 86 20 100/64 (76) 96 Room Air I & O0 07/25/19 07/25/19 07/26/19 15:00 23:00 07:00 Intake Total 960 ml 600 ml Balance 960 ml 600 ml Labs: Laboratory Tests Test 07/26/19 06:27 White Blood Count 7.4 x10^3/uL (4.0-11.0) Red Blood Count 4.35 x10^6/uL (4.30-5.70) Hemoglobin 13.4 g/dL (13.0-17.5) Hematocrit 39.6 % (39.0-53.0) Mean Corpuscular Volume 91 fL (79-100) Mean Corpuscular Hemoglobin 31 pg (25-35) Mean Corpuscular Hemoglobin Concent 34 g/dL (31-37) Red Cell Distribution Width 14.0 % (11.5-14.5) Platelet Count 195 x10^3/uL (140-400) Neutrophils (%) (Auto) 74 % (31-73) H Lymphocytes (%) (Auto) 16 % (24-48) L Monocytes (%) (Auto) 9 % (0-9) Eosinophils (%) (Auto) 1 % (0-3) Basophils (%) (Auto) 1 % (0-3) Neutrophils # (Auto) 5.5 x10^3uL (1.8-7.7) Lymphocytes # (Auto) 1.2 x10^3/uL (1.0-4.8) Monocytes # (Auto) 0.6 x10^3/uL (0.0-1.1) Eosinophils # (Auto) 0.1 x10^3/uL (0.0-0.7) Basophils # (Auto) 0.0 x10^3/uL (0.0-0.2) Sodium Level 128 mmol/L (136-145) L Potassium Level 4.2 mmol/L (3.5-5.1) Chloride Level 95 mmol/L (98-107) L Carbon Dioxide Level 24 mmol/L (21-32) Anion Gap 9 (6-14) Blood Urea Nitrogen 14 mg/dL (8-26) Creatinine 0.8 mg/dL (0.7-1.3) Estimated GFR (Cockcroft-Gault) 99.3 BUN/Creatinine Ratio 18 (6-20) Glucose Level 90 mg/dL (70-99) Calcium Level 8.9 mg/dL (8.5-10.1) Total Bilirubin 0.3 mg/dL (0.2-1.0) Aspartate Amino Transferase (AST) 22 U/L (15-37) Alanine Aminotransferase (ALT) 29 U/L (16-63) Alkaline Phosphatase 131 U/L (46-116) H Total Protein 6.8 g/dL (6.4-8.2) Albumin 3.5 g/dL (3.4-5.0) Albumin/Globulin Ratio 1.1 (1.0-1.7) Current Medications: Meds: Current Medications Medications (Trade) Dose Ordered Sig/Rober Route PRN Reason Start Time Stop Time Status Last Admin Dose Admin Oxcarbazepine (Trileptal) 600 mg BID PO 07/25/19 21:00 07/25/19 20:04 I have reviewed the current psychotropics carefully including drug interactions. Risk benefit ratio favors no change other than as noted in my dictated progress note. Diagnosis: Problems: (1) Anxiety disorder (2) Impulse control disorder (3) Schizoaffective disorder, bipolar type (4) Schizoaffective disorder, chronic condition with acute exacerbation (5) Schizophrenia, paranoid, chronic with acute exacerbation LEONARD ASHFORD MD July 26, 2019 07:39
--- NOTE | 2019-07-26 08:02 | PDOC ---
Exam Note: Rafael Note: This note is a late entry for 07/25/2019 covers elements not covered in my initial note. Subjective: The patient was seen face to face with the treatment team in the morning including Maria Chang, and Patricia (social media marketer), Orly, [facility]. Nursing report was with Rachna PERSAUD. Discussed the patient with nursing staff in the evening reviewed the chart. He slept 5-1/2 hours. He has been tired. Sodium low at 131. He has been talking to himself, less hyperverbal nevertheless, laughing inappropriately. Previous night he urinated all over his room again despite getting Flomax being changed to the morning. He is verbally abusive to staff. Review of Systems: Ambulation impaired, in wheelchair. No CV, GI/, Pulmonary, Eye system symptoms on review. Mental Status Exam: Oriented to himself and situation. I met with him in his room. He was looking out of the panoramic window, somewhat anxious, restless. Speech coherent. Abstraction is fair. Computation is impaired. Language function is intact. Mood and affect remains somewhat grandiose. No suicidal or homicidal ideation. Laboratory Data: Reviewed. Impression: Schizoaffective disorder, bipolar type, mixed with psychotic features. Rest unchanged. Plan: The patient continues to have some mood lability. We will increase the Trileptal from 300 a.m. and 600 mg h.s. to 600 mg b.i.d. The Zoloft 100 mg a day could be contributing to his hypokalemia and we will stop this, especially since he is already on Wellbutrin XL 300 mg a day and part of his problems has been grandiosity rather than depressive symptoms with respect to his bipolar disorder. Continue rest of the psychotropics unchanged for now. We may need to stop the Remeron later if hyponatremia persists and Celebrex was stopped per Dr. Hall since it could be causing fluid retention. Discussed with Dr. Hall. Assessment: Vital Signs/I&O: Vital Signs Date Time Temp Pulse Resp B/P (MAP) Pulse Ox O2 Delivery O2 Flow Rate FiO2 07/26/19 05:30 97.5 86 20 100/64 (76) 96 Room Air l I & O 07/25/19 07/25/19 07/26/19 15:00 23:00 07:00 Intake Total 960 ml 600 ml Balance 960 ml 600 ml Labs: Laboratory Tests Test 07/26/19 06:27 White Blood Count 7.4 x10^3/uL (4.0-11.0) Red Blood Count 4.35 x10^6/uL (4.30-5.70) Hemoglobin 13.4 g/dL (13.0-17.5) Hematocrit 39.6 % (39.0-53.0) Mean Corpuscular Volume 91 fL (79-100) Mean Corpuscular Hemoglobin 31 pg (25-35) Mean Corpuscular Hemoglobin Concent 34 g/dL (31-37) Red Cell Distribution Width 14.0 % (11.5-14.5) Platelet Count 195 x10^3/uL (140-400) Neutrophils (%) (Auto) 74 % (31-73) H Lymphocytes (%) (Auto) 16 % (24-48) L Monocytes (%) (Auto) 9 % (0-9) Eosinophils (%) (Auto) 1 % (0-3) Basophils (%) (Auto) 1 % (0-3) Neutrophils # (Auto) 5.5 x10^3uL (1.8-7.7) Lymphocytes # (Auto) 1.2 x10^3/uL (1.0-4.8) Monocytes # (Auto) 0.6 x10^3/uL (0.0-1.1) Eosinophils # (Auto) 0.1 x10^3/uL (0.0-0.7) Basophils # (Auto) 0.0 x10^3/uL (0.0-0.2) Sodium Level 128 mmol/L (136-145) L Potassium Level 4.2 mmol/L (3.5-5.1) Chloride Level 95 mmol/L (98-107) L Carbon Dioxide Level 24 mmol/L (21-32) Anion Gap 9 (6-14) Blood Urea Nitrogen 14 mg/dL (8-26) Creatinine 0.8 mg/dL (0.7-1.3) Estimated GFR (Cockcroft-Gault) 99.3 BUN/Creatinine Ratio 18 (6-20) Glucose Level 90 mg/dL (70-99) Calcium Level 8.9 mg/dL (8.5-10.1) Total Bilirubin 0.3 mg/dL (0.2-1.0) Aspartate Amino Transferase (AST) 22 U/L (15-37) Alanine Aminotransferase (ALT) 29 U/L (16-63) Alkaline Phosphatase 131 U/L (46-116) H Total Protein 6.8 g/dL (6.4-8.2) Albumin 3.5 g/dL (3.4-5.0) Albumin/Globulin Ratio 1.1 (1.0-1.7) Current Medications: Meds: Current Medications Medications (Trade) Dose Ordered Sig/Rober Route PRN Reason Start Time Stop Time Status Last Admin Dose Admin Oxcarbazepine (Trileptal) 600 mg BID PO 07/25/19 21:00 07/25/19 20:04 I have reviewed the current psychotropics carefully including drug interactions. Risk benefit ratio favors no change other than as noted in my dictated progress note. Diagnosis: Problems: (1) Anxiety disorder (2) Impulse control disorder (3) Schizoaffective disorder, bipolar type (4) Schizoaffective disorder, chronic condition with acute exacerbation (5) Schizophrenia, paranoid, chronic with acute exacerbation LEONARD ASHFORD MD July 26, 2019 08:02
[2019-07-26] MEDS: ASPIRIN ENTERIC COATED 81 MG TABLET.DR. PO SCH (08:19)
[2019-07-26] MEDS: buPROPion XL 150 MG TAB.ER.24H PO SCH (08:19)
[2019-07-26] MEDS: MULTIVITAMIN with MINERAL TABLET. PO SCH (08:19)
[2019-07-26] MEDS: PANTOPRAZOLE 40 MG TABLET. PO SCH (08:19)
[2019-07-26] MEDS: TAMSULOSIN 0.4 MG CAP.ER.24H. PO SCH (08:20)
[2019-07-26] MEDS: DOCUSATE SODIUM 100 MG CAPSULE PO SCH ×2 (08:20→20:32)
[2019-07-26] MEDS: CHOLECALCIFEROL (VITAMIN D3) 1,000 UNIT TABLET PO SCH (08:20)
[2019-07-26] MEDS: GABAPENTIN 100 MG CAPSULE. PO SCH ×3 (08:20→20:32)
[2019-07-26] MEDS: LISINOPRIL 20 MG TABLET PO SCH (08:21)
[2019-07-26] MEDS: AMMONIUM LACTATE 12% TOPICAL LOTION 226GM BOTTLE. TP SCH ×2 (08:21→20:33)
[2019-07-26] MEDS: NICOTINE 14MG PATCH. TD SCH (08:21)
[2019-07-26 15:50] VITALS: BP 100/70
[2019-07-26] MEDS: MIRTAZAPINE 7.5 MG TABLET. PO SCH (20:32)
[2019-07-26] MEDS: HYDROcodone/APAP 7.5/325MG 1 TAB TABLET PO PRN (20:33)
--- NOTE | 2019-07-26 22:06 | PDOC ---
Exam Note: Rafael Note: Please also refer to the separate dictated note~for this date of service dictated separately.~Patient seen individually. Discussed the patient with Nursing staff reviewed the chart.~Reviewed interim history and current functioning. Reviewed vital signs,~Labs/ Radiology~and current medications noted below. Continue current treatment with the changes noted in the dictated addendum note Assessment: Vital Signs/I&O: Vital Signs Date Time Temp Pulse Resp B/P (MAP) Pulse Ox O2 Delivery O2 Flow Rate FiO2 07/26/19 20:33 98 07/26/19 20:33 98.0 07/26/19 15:50 124 20 100/70 (80) 07/26/19 05:30 Room Air I & O 07/25/19 07/25/19 07/26/19 15:00 23:00 07:00 Intake Total 960 ml 600 ml Balance 960 ml 600 ml Labs: Laboratory Tests Test 07/26/19 06:27 White Blood Count 7.4 x10^3/uL (4.0-11.0) Red Blood Count 4.35 x10^6/uL (4.30-5.70) Hemoglobin 13.4 g/dL (13.0-17.5) Hematocrit 39.6 % (39.0-53.0) Mean Corpuscular Volume 91 fL (79-100) Mean Corpuscular Hemoglobin 31 pg (25-35) Mean Corpuscular Hemoglobin Concent 34 g/dL (31-37) Red Cell Distribution Width 14.0 % (11.5-14.5) Platelet Count 195 x10^3/uL (140-400) Neutrophils (%) (Auto) 74 % (31-73) H Lymphocytes (%) (Auto) 16 % (24-48) L Monocytes (%) (Auto) 9 % (0-9) Eosinophils (%) (Auto) 1 % (0-3) Basophils (%) (Auto) 1 % (0-3) Neutrophils # (Auto) 5.5 x10^3uL (1.8-7.7) Lymphocytes # (Auto) 1.2 x10^3/uL (1.0-4.8) Monocytes # (Auto) 0.6 x10^3/uL (0.0-1.1) Eosinophils # (Auto) 0.1 x10^3/uL (0.0-0.7) Basophils # (Auto) 0.0 x10^3/uL (0.0-0.2) Sodium Level 128 mmol/L (136-145) L Potassium Level 4.2 mmol/L (3.5-5.1) Chloride Level 95 mmol/L (98-107) L Carbon Dioxide Level 24 mmol/L (21-32) Anion Gap 9 (6-14) Blood Urea Nitrogen 14 mg/dL (8-26) Creatinine 0.8 mg/dL (0.7-1.3) Estimated GFR (Cockcroft-Gault) 99.3 BUN/Creatinine Ratio 18 (6-20) Glucose Level 90 mg/dL (70-99) Calcium Level 8.9 mg/dL (8.5-10.1) Total Bilirubin 0.3 mg/dL (0.2-1.0) Aspartate Amino Transferase (AST) 22 U/L (15-37) Alanine Aminotransferase (ALT) 29 U/L (16-63) Alkaline Phosphatase 131 U/L (46-116) H Total Protein 6.8 g/dL (6.4-8.2) Albumin 3.5 g/dL (3.4-5.0) Albumin/Globulin Ratio 1.1 (1.0-1.7) Current Medications: I have reviewed the current psychotropics carefully including drug interactions. Risk benefit ratio favors no change other than as noted in my dictated progress note. Diagnosis: Problems: (1) Anxiety disorder (2) Impulse control disorder (3) Schizoaffective disorder, bipolar type (4) Schizoaffective disorder, chronic condition with acute exacerbation (5) Schizophrenia, paranoid, chronic with acute exacerbation LEONARD ASHFORD MD July 26, 2019 22:05
[2019-07-27] MEDS: LEVOTHYROXINE 100 MCG TABLET PO SCH (05:00)
[2019-07-27 06:07] LABS: CALCIUM 9.4 mg/dL (8.5-10.1); CREATININE 0.9 mg/dL (0.7-1.3); GFR 86.7; POTASSIUM 4.5 mmol/L (3.5-5.1)
[2019-07-27 06:09] VITALS: BP 108/75
[2019-07-27] MEDS: DOCUSATE SODIUM 100 MG CAPSULE PO SCH ×2 (08:00→20:12)
[2019-07-27] MEDS: GABAPENTIN 100 MG CAPSULE. PO SCH ×3 (08:00→20:11)
[2019-07-27] MEDS: ASPIRIN ENTERIC COATED 81 MG TABLET.DR. PO SCH (08:00)
[2019-07-27] MEDS: PANTOPRAZOLE 40 MG TABLET. PO SCH (08:00)
[2019-07-27] MEDS: MULTIVITAMIN with MINERAL TABLET. PO SCH (08:00)
[2019-07-27] MEDS: buPROPion XL 150 MG TAB.ER.24H PO SCH (08:00)
[2019-07-27] MEDS: TAMSULOSIN 0.4 MG CAP.ER.24H. PO SCH (08:00)
[2019-07-27] MEDS: CHOLECALCIFEROL (VITAMIN D3) 1,000 UNIT TABLET PO SCH (08:01)
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
[2019-07-27] MEDS: NICOTINE 14MG PATCH. TD SCH (08:02)
[2019-07-27] MEDS: AMMONIUM LACTATE 12% TOPICAL LOTION 226GM BOTTLE. TP SCH ×2 (08:04→21:00)
[2019-07-27] MEDS: LISINOPRIL 20 MG TABLET PO SCH (08:05)
[2019-07-27 16:11] VITALS: BP 105/69
[2019-07-27] MEDS: HYDROcodone/APAP 7.5/325MG 1 TAB TABLET PO PRN (20:11)
[2019-07-27] MEDS: MIRTAZAPINE 15 MG TABLET PO SCH (20:11)
--- NOTE | 2019-07-27 22:02 | PDOC ---
Exam Note: Rafael Note: Please also refer to the separate dictated note~for this date of service dictated separately.~Patient seen individually. Discussed the patient with Nursing staff reviewed the chart.~Reviewed interim history and current functioning. Reviewed vital signs,~Labs/ Radiology~and current medications noted below. Continue current treatment with the changes noted in the dictated addendum note Assessment: Vital Signs/I&O: Vital Signs Date Time Temp Pulse Resp B/P (MAP) Pulse Ox O2 Delivery O2 Flow Rate FiO2 07/27/19 20:11 96 07/27/19 16:11 97.9 94 20 105/69 (81) 07/26/19 05:30 Room Air I & O 07/26/19 07/26/19 07/27/19 15:00 23:00 07:00 Intake Total 360 ml 480 ml Balance 360 ml 480 ml Labs: Laboratory Tests Test 07/27/19 05:39 Sodium Level 134 mmol/L (136-145) L Potassium Level 4.5 mmol/L (3.5-5.1) Chloride Level 100 mmol/L (98-107) Carbon Dioxide Level 22 mmol/L (21-32) Anion Gap 12 (6-14) Blood Urea Nitrogen 17 mg/dL (8-26) Creatinine 0.9 mg/dL (0.7-1.3) Estimated GFR (Cockcroft-Gault) 86.7 Glucose Level 99 mg/dL (70-99) Calcium Level 9.4 mg/dL (8.5-10.1) Current Medications: Meds: Current Medications Medications (Trade) Dose Ordered Sig/Rober Route PRN Reason Start Time Stop Time Status Last Admin Dose Admin Mirtazapine (Remeron) 15 mg QHS PO 07/27/19 21:00 07/27/19 20:11 I have reviewed the current psychotropics carefully including drug interactions. Risk benefit ratio favors no change other than as noted in my dictated progress note. Diagnosis: Problems: (1) Anxiety disorder (2) Impulse control disorder (3) Schizoaffective disorder, bipolar type (4) Schizoaffective disorder, chronic condition with acute exacerbation (5) Schizophrenia, paranoid, chronic with acute exacerbation LEONARD ASHFORD MD July 27, 2019 22:02
[2019-07-28 05:47] VITALS: BP 123/83
[2019-07-28] MEDS: LEVOTHYROXINE 100 MCG TABLET PO SCH (06:00)
[2019-07-28 06:07] LABS: BASO # 0.1 x10^3/uL (0.0-0.2); BASO % 1 % (0-3); EOS # 0.1 x10^3/uL (0.0-0.7); EOS % 1 % (0-3); HEMATOCRIT 38.9 % (39.0-53.0); HEMOGLOBIN 13.4 g/dL (13.0-17.5); LYMPH # 1.9 x10^3/uL (1.0-4.8); LYMPH % 23 % (24-48); MEAN CORPUSCULAR HEMOGLOBIN 31 pg (25-35); MEAN CORPUSCULAR HGB CONC 34 g/dL (31-37); MEAN CORPUSCULAR VOLUME 91 fL (79-100); MONO # 0.6 x10^3/uL (0.0-1.1); MONO % 8 % (0-9); NEUT # 5.5 x10^3uL (1.8-7.7); NEUT % 67 % (31-73); PLATELET COUNT 203 x10^3/uL (140-400); RED BLOOD COUNT 4.29 x10^6/uL (4.30-5.70); RED CELL DISTRIBUTION WIDTH 13.7 % (11.5-14.5); WHITE BLOOD COUNT 8.2 x10^3/uL (4.0-11.0)
[2019-07-28 06:28] LABS: ALBUMIN 3.6 g/dL (3.4-5.0); ALBUMIN/GLOBULIN RATIO 1.1 (1.0-1.7); CALCIUM 9.1 mg/dL (8.5-10.1); CREATININE 0.8 mg/dL (0.7-1.3); GFR 99.3; POTASSIUM 4.1 mmol/L (3.5-5.1); TOTAL BILIRUBIN 0.3 mg/dL (0.2-1.0)
--- NOTE | 2019-07-28 07:26 | PDOC ---
Exam Note: Rafael Note: This note is a late entry for 07/26/2019 covers elements not covered in my initial note. Subjective: The patient was seen face to face in the evening of 07/26/2019. Nursing report was with Deysi PERSAUD. Discussed the patient with nursing staff in the evening reviewed the chart. Sodium is dropped to 128 from 131. He remains somewhat psychotic talking about electromagnetic waves running through his body when he is lying in bed and he was lying on the floor earlier. Review of Systems: Ambulation impaired, in wheelchair. No CV, GI/, Pulmonary, Eye system symptoms on review. Vague somatic symptoms. Mental Status Exam: Oriented to himself and situation. He is quite animated, verbal, les grandiose however. Speech coherent. Abstraction is fair. Computation is impaired. Language function is intact. Mood and affect remains somewhat grandiose but improved. No suicidal or homicidal ideation. Laboratory Data: Reviewed. Impression: Schizoaffective disorder, bipolar type, mixed with psychotic features. Rest unchanged. Plan: We will continue to monitor electrolytes and Trileptal has been increased. We will make further changes as clinically indicated. Assessment: Vital Signs/I&O: Vital Signs Date Time Temp Pulse Resp B/P (MAP) Pulse Ox O2 Delivery O2 Flow Rate FiO2 07/28/19 05:47 98.2 82 20 123/83 (96) 98 07/26/19 05:30 Room Air I & O 0 07/27/19 07/27/19 07/28/19 14:59 22:59 06:59 Intake Total 600 ml 600 ml Balance 600 ml 600 ml Labs: Laboratory Tests Test 07/28/19 05:50 White Blood Count 8.2 x10^3/uL (4.0-11.0) Red Blood Count 4.29 x10^6/uL (4.30-5.70) L Hemoglobin 13.4 g/dL (13.0-17.5) Hematocrit 38.9 % (39.0-53.0) L Mean Corpuscular Volume 91 fL (79-100) Mean Corpuscular Hemoglobin 31 pg (25-35) Mean Corpuscular Hemoglobin Concent 34 g/dL (31-37) Red Cell Distribution Width 13.7 % (11.5-14.5) Platelet Count 203 x10^3/uL (140-400) Neutrophils (%) (Auto) 67 % (31-73) Lymphocytes (%) (Auto) 23 % (24-48) L Monocytes (%) (Auto) 8 % (0-9) Eosinophils (%) (Auto) 1 % (0-3) Basophils (%) (Auto) 1 % (0-3) Neutrophils # (Auto) 5.5 x10^3uL (1.8-7.7) Lymphocytes # (Auto) 1.9 x10^3/uL (1.0-4.8) Monocytes # (Auto) 0.6 x10^3/uL (0.0-1.1) Eosinophils # (Auto) 0.1 x10^3/uL (0.0-0.7) Basophils # (Auto) 0.1 x10^3/uL (0.0-0.2) Sodium Level 130 mmol/L (136-145) L Potassium Level 4.1 mmol/L (3.5-5.1) Chloride Level 97 mmol/L (98-107) L Carbon Dioxide Level 22 mmol/L (21-32) Anion Gap 11 (6-14) Blood Urea Nitrogen 15 mg/dL (8-26) Creatinine 0.8 mg/dL (0.7-1.3) Estimated GFR (Cockcroft-Gault) 99.3 BUN/Creatinine Ratio 19 (6-20) Glucose Level 98 mg/dL (70-99) Calcium Level 9.1 mg/dL (8.5-10.1) Total Bilirubin 0.3 mg/dL (0.2-1.0) Aspartate Amino Transferase (AST) 22 U/L (15-37) Alanine Aminotransferase (ALT) 30 U/L (16-63) Alkaline Phosphatase 128 U/L (46-116) H Total Protein 7.0 g/dL (6.4-8.2) Albumin 3.6 g/dL (3.4-5.0) Albumin/Globulin Ratio 1.1 (1.0-1.7) Current Medications: Meds: Current Medications Medications (Trade) Dose Ordered Sig/Rober Route PRN Reason Start Time Stop Time Status Last Admin Dose Admin Mirtazapine (Remeron) 15 mg QHS PO 07/27/19 21:00 07/27/19 20:11 I have reviewed the current psychotropics carefully including drug interactions. Risk benefit ratio favors no change other than as noted in my dictated progress note. Diagnosis: Problems: (1) Anxiety disorder (2) Impulse control disorder (3) Schizoaffective disorder, bipolar type (4) Schizoaffective disorder, chronic condition with acute exacerbation (5) Schizophrenia, paranoid, chronic with acute exacerbation LEONARD ASHFORD MD July 28, 2019 07:25
--- NOTE | 2019-07-28 07:41 | PDOC ---
Exam Note: Rfaael Note: Subjective: The patient was seen face to face in the evening of 07/27/2019. Nursing report was with Radha PERSAUD with treatment team meeting. Also discussed with Demarcus PERSAUD in the evening on rounds. Discussed the patient with nursing staff in the evening reviewed the chart. At times he has been attending groups outside on the patio, was cursing. He slept 2-3/4 hours previous night. Appetite is 100%. At times he is calm, pleasant, interactive, other times more labile, grandiose. We will be checking labs on Thursday 07/27 and Friday 07/28. Sodium today is 134. He is less agitated in the evening calmer, better. Review of Systems: Ambulation impaired, in wheelchair. No CV, GI/, Pulmonary, Eye system symptoms on review. Mental Status Exam: Oriented to himself and situation. He is calm, pleasant, interactive, states he is compliant with water restrictions. Speech coherent. Abstraction is fair. Computation is impaired. Language function is intact. Mood and affect remains somewhat grandiose but improved. No suicidal or homicidal ideation. Laboratory Data: Reviewed. Impression: Schizoaffective disorder, bipolar type, mixed with psychotic features. Rest unchanged. Plan: As noted above. Continue psychotropics from my initial note. Trileptal was increased. Assessment: Vital Signs/I&O: Vital Signs Date Time Temp Pulse Resp B/P (MAP) Pulse Ox O2 Delivery O2 Flow Rate FiO2 07/28/19 05:47 98.2 82 20 123/83 (96) 98 07/26/19 05:30 Room Air I & O 07/27/19 07/27/19 07/28/19 15:00 23:00 07:00 Intake Total 600 ml 600 ml Balance 600 ml 600 ml Labs: Laboratory Tests Test 07/28/19 05:50 White Blood Count 8.2 x10^3/uL (4.0-11.0) Red Blood Count 4.29 x10^6/uL (4.30-5.70) L Hemoglobin 13.4 g/dL (13.0-17.5) Hematocrit 38.9 % (39.0-53.0) L Mean Corpuscular Volume 91 fL (79-100) Mean Corpuscular Hemoglobin 31 pg (25-35) Mean Corpuscular Hemoglobin Concent 34 g/dL (31-37) Red Cell Distribution Width 13.7 % (11.5-14.5) Platelet Count 203 x10^3/uL (140-400) Neutrophils (%) (Auto) 67 % (31-73) Lymphocytes (%) (Auto) 23 % (24-48) L Monocytes (%) (Auto) 8 % (0-9) Eosinophils (%) (Auto) 1 % (0-3) Basophils (%) (Auto) 1 % (0-3) Neutrophils # (Auto) 5.5 x10^3uL (1.8-7.7) Lymphocytes # (Auto) 1.9 x10^3/uL (1.0-4.8) Monocytes # (Auto) 0.6 x10^3/uL (0.0-1.1) Eosinophils # (Auto) 0.1 x10^3/uL (0.0-0.7) Basophils # (Auto) 0.1 x10^3/uL (0.0-0.2) Sodium Level 130 mmol/L (136-145) L Potassium Level 4.1 mmol/L (3.5-5.1) Chloride Level 97 mmol/L (98-107) L Carbon Dioxide Level 22 mmol/L (21-32) Anion Gap 11 (6-14) Blood Urea Nitrogen 15 mg/dL (8-26) Creatinine 0.8 mg/dL (0.7-1.3) Estimated GFR (Cockcroft-Gault) 99.3 BUN/Creatinine Ratio 19 (6-20) Glucose Level 98 mg/dL (70-99) Calcium Level 9.1 mg/dL (8.5-10.1) Total Bilirubin 0.3 mg/dL (0.2-1.0) Aspartate Amino Transferase (AST) 22 U/L (15-37) Alanine Aminotransferase (ALT) 30 U/L (16-63) Alkaline Phosphatase 128 U/L (46-116) H Total Protein 7.0 g/dL (6.4-8.2) Albumin 3.6 g/dL (3.4-5.0) Albumin/Globulin Ratio 1.1 (1.0-1.7) Current Medications: Meds: Current Medications Medications (Trade) Dose Ordered Sig/Rober Route PRN Reason Start Time Stop Time Status Last Admin Dose Admin Mirtazapine (Remeron) 15 mg QHS PO 07/27/19 21:00 07/27/19 20:11 I have reviewed the current psychotropics carefully including drug interactions. Risk benefit ratio favors no change other than as noted in my dictated progress note. Diagnosis: Problems: (1) Anxiety disorder (2) Impulse control disorder (3) Schizoaffective disorder, bipolar type (4) Schizoaffective disorder, chronic condition with acute exacerbation (5) Schizophrenia, paranoid, chronic with acute exacerbation LEONARD ASFHORD MD July 28, 2019 07:41
[2019-07-28] MEDS: ASPIRIN ENTERIC COATED 81 MG TABLET.DR. PO SCH (08:36)
[2019-07-28] MEDS: DOCUSATE SODIUM 100 MG CAPSULE PO SCH ×2 (08:36→19:40)
[2019-07-28] MEDS: buPROPion XL 150 MG TAB.ER.24H PO SCH (08:36)
[2019-07-28] MEDS: GABAPENTIN 100 MG CAPSULE. PO SCH ×3 (08:36→19:39)
[2019-07-28] MEDS: PANTOPRAZOLE 40 MG TABLET. PO SCH (08:37)
[2019-07-28] MEDS: NICOTINE 14MG PATCH. TD SCH (08:37)
[2019-07-28] MEDS: MULTIVITAMIN with MINERAL TABLET. PO SCH (08:37)
[2019-07-28] MEDS: CHOLECALCIFEROL (VITAMIN D3) 1,000 UNIT TABLET PO SCH (08:37)
[2019-07-28] MEDS: TAMSULOSIN 0.4 MG CAP.ER.24H. PO SCH (08:37)
[2019-07-28] MEDS: AMMONIUM LACTATE 12% TOPICAL LOTION 226GM BOTTLE. TP SCH ×2 (08:39→21:00)
[2019-07-28] MEDS: LISINOPRIL 20 MG TABLET PO SCH (08:39)
[2019-07-28 15:20] VITALS: BP 133/89
[2019-07-28] MEDS: MIRTAZAPINE 15 MG TABLET PO SCH (19:39)
[2019-07-28] MEDS: HYDROcodone/APAP 7.5/325MG 1 TAB TABLET PO PRN (19:39)
--- NOTE | 2019-07-28 21:49 | PDOC ---
Exam Note: Rafael Note: Please also refer to the separate dictated note~for this date of service dictated separately.~Patient seen individually. Discussed the patient with Nursing staff reviewed the chart.~Reviewed interim history and current functioning. Reviewed vital signs,~Labs/ Radiology~and current medications noted below. Continue current treatment with the changes noted in the dictated addendum note Assessment: Vital Signs/I&O: Vital Signs Date Time Temp Pulse Resp B/P (MAP) Pulse Ox O2 Delivery O2 Flow Rate FiO2 07/28/19 20:50 97.2 95 07/28/19 15:20 80 20 133/89 (104) 07/26/19 05:30 Room Air I & O 07/27/19 07/27/19 07/28/19 15:00 23:00 07:00 Intake Total 600 ml 600 ml Balance 600 ml 600 ml Labs: Laboratory Tests Test 07/28/19 05:50 White Blood Count 8.2 x10^3/uL (4.0-11.0) Red Blood Count 4.29 x10^6/uL (4.30-5.70) L Hemoglobin 13.4 g/dL (13.0-17.5) Hematocrit 38.9 % (39.0-53.0) L Mean Corpuscular Volume 91 fL (79-100) Mean Corpuscular Hemoglobin 31 pg (25-35) Mean Corpuscular Hemoglobin Concent 34 g/dL (31-37) Red Cell Distribution Width 13.7 % (11.5-14.5) Platelet Count 203 x10^3/uL (140-400) Neutrophils (%) (Auto) 67 % (31-73) Lymphocytes (%) (Auto) 23 % (24-48) L Monocytes (%) (Auto) 8 % (0-9) Eosinophils (%) (Auto) 1 % (0-3) Basophils (%) (Auto) 1 % (0-3) Neutrophils # (Auto) 5.5 x10^3uL (1.8-7.7) Lymphocytes # (Auto) 1.9 x10^3/uL (1.0-4.8) Monocytes # (Auto) 0.6 x10^3/uL (0.0-1.1) Eosinophils # (Auto) 0.1 x10^3/uL (0.0-0.7) Basophils # (Auto) 0.1 x10^3/uL (0.0-0.2) Sodium Level 130 mmol/L (136-145) L Potassium Level 4.1 mmol/L (3.5-5.1) Chloride Level 97 mmol/L (98-107) L Carbon Dioxide Level 22 mmol/L (21-32) Anion Gap 11 (6-14) Blood Urea Nitrogen 15 mg/dL (8-26) Creatinine 0.8 mg/dL (0.7-1.3) Estimated GFR (Cockcroft-Gault) 99.3 BUN/Creatinine Ratio 19 (6-20) Glucose Level 98 mg/dL (70-99) Calcium Level 9.1 mg/dL (8.5-10.1) Total Bilirubin 0.3 mg/dL (0.2-1.0) Aspartate Amino Transferase (AST) 22 U/L (15-37) Alanine Aminotransferase (ALT) 30 U/L (16-63) Alkaline Phosphatase 128 U/L (46-116) H Total Protein 7.0 g/dL (6.4-8.2) Albumin 3.6 g/dL (3.4-5.0) Albumin/Globulin Ratio 1.1 (1.0-1.7) Current Medications: I have reviewed the current psychotropics carefully including drug interactions. Risk benefit ratio favors no change other than as noted in my dictated progress note. Diagnosis: Problems: (1) Anxiety disorder (2) Impulse control disorder (3) Schizoaffective disorder, bipolar type (4) Schizoaffective disorder, chronic condition with acute exacerbation (5) Schizophrenia, paranoid, chronic with acute exacerbation LEONARD ASHFORD MD July 28, 2019 21:49
[2019-07-29] MEDS: LEVOTHYROXINE 100 MCG TABLET PO SCH (05:44)
[2019-07-29 06:02] VITALS: BP 104/69
[2019-07-29 08:38] LABS: BASO % 1 % (0-3); EOS # 0.1 x10^3/uL (0.0-0.7); EOS % 1 % (0-3); HEMATOCRIT 41.6 % (39.0-53.0); HEMOGLOBIN 13.9 g/dL (13.0-17.5); LYMPH # 1.4 x10^3/uL (1.0-4.8); LYMPH % 19 % (24-48); MEAN CORPUSCULAR HEMOGLOBIN 31 pg (25-35); MEAN CORPUSCULAR HGB CONC 34 g/dL (31-37); MEAN CORPUSCULAR VOLUME 91 fL (79-100); MONO # 0.6 x10^3/uL (0.0-1.1); MONO % 8 % (0-9); NEUT # 5.2 x10^3uL (1.8-7.7); NEUT % 71 % (31-73); PLATELET COUNT 219 x10^3/uL (140-400); RED BLOOD COUNT 4.55 x10^6/uL (4.30-5.70); RED CELL DISTRIBUTION WIDTH 14.2 % (11.5-14.5); WHITE BLOOD COUNT 7.3 x10^3/uL (4.0-11.0)
--- NOTE | 2019-07-29 08:48 | PDOC ---
Exam Note: Rafael Note: This note is a late entry for 07/28/2019 covers elements not covered in my initial note. Subjective: The patient was seen face to face in the evening of 07/28/2019. Nursing report was with Demarcus PERSAUD. Discussed the patient with nursing staff in the evening reviewed the chart. He slept 3-3/4 hours previous night. According to the nursing report, the patient has been doing better, calmer. Sodium has dropped down to 130. Again we will continue to monitor. He has been interactive, laughing, less grandiose. Review of Systems: Ambulation impaired, in wheelchair. No CV, GI/, Pulmonary, Eye system symptoms on review. Mental Status Exam: Reasonably oriented. Speech coherent, less pressured. Abstraction is fair. Computation is impaired. Language function is intact. Mood and affect lability is improved though he is laughing loudly as I met with him. Laboratory Data: Reviewed. Impression: Schizoaffective disorder, bipolar type, mixed with psychotic features. Rest unchanged. Plan: Continue psychotropics from my initial note. Assessment: Vital Signs/I&O: Vital Signs Date Time Temp Pulse Resp B/P (MAP) Pulse Ox O2 Delivery O2 Flow Rate FiO2 07/29/19 08:32 97.6 95 07/29/19 06:02 71 14 104/69 (81) 07/26/19 05:30 Room Air I & O 07/28/19 07/28/19 07/29/19 14:59 22:59 06:59 Intake Total 480 ml 240 ml Balance 480 ml 240 ml Labs: Laboratory Tests Test 07/29/19 08:00 White Blood Count 7.3 x10^3/uL (4.0-11.0) Red Blood Count 4.55 x10^6/uL (4.30-5.70) Hemoglobin 13.9 g/dL (13.0-17.5) Hematocrit 41.6 % (39.0-53.0) Mean Corpuscular Volume 91 fL (79-100) Mean Corpuscular Hemoglobin 31 pg (25-35) Mean Corpuscular Hemoglobin Concent 34 g/dL (31-37) Red Cell Distribution Width 14.2 % (11.5-14.5) Platelet Count 219 x10^3/uL (140-400) Neutrophils (%) (Auto) 71 % (31-73) Lymphocytes (%) (Auto) 19 % (24-48) L Monocytes (%) (Auto) 8 % (0-9) Eosinophils (%) (Auto) 1 % (0-3) Basophils (%) (Auto) 1 % (0-3) Neutrophils # (Auto) 5.2 x10^3uL (1.8-7.7) Lymphocytes # (Auto) 1.4 x10^3/uL (1.0-4.8) Monocytes # (Auto) 0.6 x10^3/uL (0.0-1.1) Eosinophils # (Auto) 0.1 x10^3/uL (0.0-0.7) Basophils # (Auto) 0.0 x10^3/uL (0.0-0.2) Current Medications: I have reviewed the current psychotropics carefully including drug interactions. Risk benefit ratio favors no change other than as noted in my dictated progress note. Diagnosis: Problems: (1) Anxiety disorder (2) Impulse control disorder (3) Schizoaffective disorder, bipolar type (4) Schizoaffective disorder, chronic condition with acute exacerbation (5) Schizophrenia, paranoid, chronic with acute exacerbation LEONARD ASHFORD MD July 29, 2019 08:48
[2019-07-29 08:55] LABS: CALCIUM 9.5 mg/dL (8.5-10.1); CREATININE 0.8 mg/dL (0.7-1.3); GFR 99.3; POTASSIUM 4.5 mmol/L (3.5-5.1)
[2019-07-29] MEDS: AMMONIUM LACTATE 12% TOPICAL LOTION 226GM BOTTLE. TP SCH ×2 (09:00→20:18)
[2019-07-29] MEDS: PANTOPRAZOLE 40 MG TABLET. PO SCH (09:00)
[2019-07-29] MEDS: buPROPion XL 150 MG TAB.ER.24H PO SCH (09:01)
[2019-07-29] MEDS: HALOPERIDOL DECANOATE IM ER 100 MG/ML VIAL. IM SCH (09:02)
[2019-07-29] MEDS: ASPIRIN ENTERIC COATED 81 MG TABLET.DR. PO SCH (09:03)
[2019-07-29] MEDS: TAMSULOSIN 0.4 MG CAP.ER.24H. PO SCH (09:03)
[2019-07-29] MEDS: DOCUSATE SODIUM 100 MG CAPSULE PO SCH ×2 (09:03→20:16)
[2019-07-29] MEDS: LISINOPRIL 20 MG TABLET PO SCH (09:03)
[2019-07-29] MEDS: GABAPENTIN 100 MG CAPSULE. PO SCH ×3 (09:03→20:16)
[2019-07-29] MEDS: NICOTINE 14MG PATCH. TD SCH (09:04)
[2019-07-29] MEDS: MULTIVITAMIN with MINERAL TABLET. PO SCH (09:04)
[2019-07-29] MEDS: CHOLECALCIFEROL (VITAMIN D3) 1,000 UNIT TABLET PO SCH (09:04)
[2019-07-29 15:26] VITALS: BP 133/82
[2019-07-29] MEDS: MIRTAZAPINE 15 MG TABLET PO SCH (20:16)
[2019-07-29] MEDS: ACETAMINOPHEN 325 MG TABLET PO PRN (21:46)
--- NOTE | 2019-07-29 21:53 | PDOC ---
Exam Note: Rafael Note: Please also refer to the separate dictated note~for this date of service dictated separately.~Patient seen individually. Discussed the patient with Nursing staff reviewed the chart.~Reviewed interim history and current functioning. Reviewed vital signs,~Labs/ Radiology~and current medications noted below. Continue current treatment with the changes noted in the dictated addendum note Assessment: Vital Signs/I&O: Vital Signs Date Time Temp Pulse Resp B/P (MAP) Pulse Ox O2 Delivery O2 Flow Rate FiO2 07/29/19 20:57 97.9 99 07/29/19 15:26 94 18 133/82 (99) 07/26/19 05:30 Room Air I & O 07/28/19 07/28/19 07/29/19 15:00 23:00 07:00 Intake Total 480 ml 240 ml Balance 480 ml 240 ml Labs: Laboratory Tests Test 07/29/19 08:00 White Blood Count 7.3 x10^3/uL (4.0-11.0) Red Blood Count 4.55 x10^6/uL (4.30-5.70) Hemoglobin 13.9 g/dL (13.0-17.5) Hematocrit 41.6 % (39.0-53.0) Mean Corpuscular Volume 91 fL (79-100) Mean Corpuscular Hemoglobin 31 pg (25-35) Mean Corpuscular Hemoglobin Concent 34 g/dL (31-37) Red Cell Distribution Width 14.2 % (11.5-14.5) Platelet Count 219 x10^3/uL (140-400) Neutrophils (%) (Auto) 71 % (31-73) Lymphocytes (%) (Auto) 19 % (24-48) L Monocytes (%) (Auto) 8 % (0-9) Eosinophils (%) (Auto) 1 % (0-3) Basophils (%) (Auto) 1 % (0-3) Neutrophils # (Auto) 5.2 x10^3uL (1.8-7.7) Lymphocytes # (Auto) 1.4 x10^3/uL (1.0-4.8) Monocytes # (Auto) 0.6 x10^3/uL (0.0-1.1) Eosinophils # (Auto) 0.1 x10^3/uL (0.0-0.7) Basophils # (Auto) 0.0 x10^3/uL (0.0-0.2) Sodium Level 135 mmol/L (136-145) L Potassium Level 4.5 mmol/L (3.5-5.1) Chloride Level 101 mmol/L (98-107) Carbon Dioxide Level 24 mmol/L (21-32) Anion Gap 10 (6-14) Blood Urea Nitrogen 14 mg/dL (8-26) Creatinine 0.8 mg/dL (0.7-1.3) Estimated GFR (Cockcroft-Gault) 99.3 Glucose Level 95 mg/dL (70-99) Calcium Level 9.5 mg/dL (8.5-10.1) Current Medications: I have reviewed the current psychotropics carefully including drug interactions. Risk benefit ratio favors no change other than as noted in my dictated progress note. Diagnosis: Problems: (1) Anxiety disorder (2) Impulse control disorder (3) Schizoaffective disorder, bipolar type (4) Schizoaffective disorder, chronic condition with acute exacerbation (5) Schizophrenia, paranoid, chronic with acute exacerbation LEONARD ASHFORD MD July 29, 2019 21:53
[2019-07-30] MEDS: LEVOTHYROXINE 100 MCG TABLET PO SCH (05:54)
[2019-07-30] MEDS: ACETAMINOPHEN 325 MG TABLET PO PRN ×2 (05:56→11:03)
[2019-07-30 05:57] VITALS: BP 114/83
[2019-07-30] MEDS: buPROPion XL 150 MG TAB.ER.24H PO SCH (08:39)
[2019-07-30] MEDS: DOCUSATE SODIUM 100 MG CAPSULE PO SCH ×2 (08:39→20:14)
[2019-07-30] MEDS: PANTOPRAZOLE 40 MG TABLET. PO SCH (08:39)
[2019-07-30] MEDS: GABAPENTIN 100 MG CAPSULE. PO SCH ×3 (08:39→20:14)
[2019-07-30] MEDS: TAMSULOSIN 0.4 MG CAP.ER.24H. PO SCH (08:39)
[2019-07-30] MEDS: ASPIRIN ENTERIC COATED 81 MG TABLET.DR. PO SCH (08:39)
[2019-07-30] MEDS: AMMONIUM LACTATE 12% TOPICAL LOTION 226GM BOTTLE. TP SCH ×2 (08:40→21:00)
[2019-07-30] MEDS: NICOTINE 14MG PATCH. TD SCH (08:40)
[2019-07-30] MEDS: CHOLECALCIFEROL (VITAMIN D3) 1,000 UNIT TABLET PO SCH (08:40)
[2019-07-30] MEDS: LISINOPRIL 20 MG TABLET PO SCH (08:40)
[2019-07-30] MEDS: MULTIVITAMIN with MINERAL TABLET. PO SCH (08:40)
[2019-07-30 10:36] LABS: BASO # 0.1 x10^3/uL (0.0-0.2); BASO % 1 % (0-3); EOS # 0.1 x10^3/uL (0.0-0.7); EOS % 1 % (0-3); HEMATOCRIT 40.8 % (39.0-53.0); HEMOGLOBIN 13.7 g/dL (13.0-17.5); LYMPH # 1.2 x10^3/uL (1.0-4.8); LYMPH % 19 % (24-48); MEAN CORPUSCULAR HEMOGLOBIN 31 pg (25-35); MEAN CORPUSCULAR HGB CONC 34 g/dL (31-37); MEAN CORPUSCULAR VOLUME 92 fL (79-100); MONO # 0.5 x10^3/uL (0.0-1.1); MONO % 8 % (0-9); NEUT # 4.3 x10^3uL (1.8-7.7); NEUT % 71 % (31-73); PLATELET COUNT 205 x10^3/uL (140-400); RED BLOOD COUNT 4.41 x10^6/uL (4.30-5.70); RED CELL DISTRIBUTION WIDTH 13.7 % (11.5-14.5); WHITE BLOOD COUNT 6.1 x10^3/uL (4.0-11.0)
[2019-07-30 11:00] LABS: ALBUMIN 3.7 g/dL (3.4-5.0); ALBUMIN/GLOBULIN RATIO 1.1 (1.0-1.7); CALCIUM 9.2 mg/dL (8.5-10.1); CREATININE 0.8 mg/dL (0.7-1.3); GFR 99.3; POTASSIUM 3.9 mmol/L (3.5-5.1); TOTAL BILIRUBIN 0.2 mg/dL (0.2-1.0); TOTAL PROTEIN 7.2 g/dL (6.4-8.2)
[2019-07-30 16:16] VITALS: BP 163/88
[2019-07-30] MEDS: MIRTAZAPINE 15 MG TABLET PO SCH (20:14)
[2019-07-30] MEDS: HYDROcodone/APAP 7.5/325MG 1 TAB TABLET PO PRN (20:14)
[2019-07-30 21:14] VITALS: BP 145/91
--- NOTE | 2019-07-30 21:48 | EKG ---
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
--- NOTE | 2019-07-30 22:05 | PDOC ---
Exam Note: Rafael Note: Please also refer to the separate dictated note~for this date of service dictated separately.~Patient seen individually. Discussed the patient with Nursing staff reviewed the chart.~Reviewed interim history and current functioning. Reviewed vital signs,~Labs/ Radiology~and current medications noted below. Continue current treatment with the changes noted in the dictated addendum note Assessment: Vital Signs/I&O: Vital Signs Date Time Temp Pulse Resp B/P (MAP) Pulse Ox O2 Delivery O2 Flow Rate FiO2 07/30/19 21:17 97 07/30/19 21:14 84 20 145/91 (109) 07/30/19 21:06 98.8 07/26/19 05:30 Room Air I & O 07/29/19 07/29/19 07/30/19 15:00 23:00 07:00 Intake Total 480 ml 720 ml Balance 480 ml 720 ml Labs: Laboratory Tests Test 07/30/19 09:45 White Blood Count 6.1 x10^3/uL (4.0-11.0) Red Blood Count 4.41 x10^6/uL (4.30-5.70) Hemoglobin 13.7 g/dL (13.0-17.5) Hematocrit 40.8 % (39.0-53.0) Mean Corpuscular Volume 92 fL (79-100) Mean Corpuscular Hemoglobin 31 pg (25-35) Mean Corpuscular Hemoglobin Concent 34 g/dL (31-37) Red Cell Distribution Width 13.7 % (11.5-14.5) Platelet Count 205 x10^3/uL (140-400) Neutrophils (%) (Auto) 71 % (31-73) Lymphocytes (%) (Auto) 19 % (24-48) L Monocytes (%) (Auto) 8 % (0-9) Eosinophils (%) (Auto) 1 % (0-3) Basophils (%) (Auto) 1 % (0-3) Neutrophils # (Auto) 4.3 x10^3uL (1.8-7.7) Lymphocytes # (Auto) 1.2 x10^3/uL (1.0-4.8) Monocytes # (Auto) 0.5 x10^3/uL (0.0-1.1) Eosinophils # (Auto) 0.1 x10^3/uL (0.0-0.7) Basophils # (Auto) 0.1 x10^3/uL (0.0-0.2) Sodium Level 132 mmol/L (136-145) L Potassium Level 3.9 mmol/L (3.5-5.1) Chloride Level 96 mmol/L (98-107) L Carbon Dioxide Level 26 mmol/L (21-32) Anion Gap 10 (6-14) Blood Urea Nitrogen 12 mg/dL (8-26) Creatinine 0.8 mg/dL (0.7-1.3) Estimated GFR (Cockcroft-Gault) 99.3 BUN/Creatinine Ratio 15 (6-20) Glucose Level 89 mg/dL (70-99) Calcium Level 9.2 mg/dL (8.5-10.1) Total Bilirubin 0.2 mg/dL (0.2-1.0) Aspartate Amino Transferase (AST) 24 U/L (15-37) Alanine Aminotransferase (ALT) 32 U/L (16-63) Alkaline Phosphatase 128 U/L (46-116) H Total Protein 7.2 g/dL (6.4-8.2) Albumin 3.7 g/dL (3.4-5.0) Albumin/Globulin Ratio 1.1 (1.0-1.7) Current Medications: I have reviewed the current psychotropics carefully including drug interactions. Risk benefit ratio favors no change other than as noted in my dictated progress note. Diagnosis: Problems: (1) Anxiety disorder (2) Impulse control disorder (3) Schizoaffective disorder, bipolar type (4) Schizoaffective disorder, chronic condition with acute exacerbation (5) Schizophrenia, paranoid, chronic with acute exacerbation LEONARD ASHFORD MD July 30, 2019 22:05
[2019-07-31] MEDS: LEVOTHYROXINE 100 MCG TABLET PO SCH (05:37)
[2019-07-31 06:13] VITALS: BP 114/77
--- NOTE | 2019-07-31 07:48 | PDOC ---
Exam Note: Rafael Note: This note is a late entry for 07/29/2019 covers elements not covered in my initial note. Subjective: The patient was seen face to face in the evening of 07/29/2019. Nursing report was with Radha PERSAUD. Discussed the patient with nursing staff in the evening reviewed the chart. He slept 6-3/4 hours previous night. Sodium is 135 much improved from the day before at 130. He has still been sneaking water and I again had another discussion with him. He reiterated he will be compliant. Review of Systems: Ambulation impaired, in wheelchair. No CV, GI/, Pulmo nary, Eye system symptoms on review. Mental Status Exam: Reasonably oriented. He was less grandiose, laughing appropriately, still somewhat distracted. No suicidal or homicidal ideation. Abstraction is fair. Computation is impaired. Language function is intact. Mood and affect lability is improved though he is laughing loudly. Laboratory Data: Reviewed. Impression: Schizoaffective disorder, bipolar type, mixed with psychotic features. Rest unchanged. Plan: Continue psychotropics from my initial note. Assessment: Vital Signs/I&O: Vital Signs Date Time Temp Pulse Resp B/P (MAP) Pulse Ox O2 Delivery O2 Flow Rate FiO2 07/31/19 06:13 97.6 82 18 114/77 (89) 96 07/26/19 05:30 Room Air I & O 07/30/19 07/30/19 07/31/19 15:00 23:00 07:00 Intake Total 1200 ml 1320 ml Balance 1200 ml 1320 ml Labs: Laboratory Tests Test 07/30/19 09:45 White Blood Count 6.1 x10^3/uL (4.0-11.0) Red Blood Count 4.41 x10^6/uL (4.30-5.70) Hemoglobin 13.7 g/dL (13.0-17.5) Hematocrit 40.8 % (39.0-53.0) Mean Corpuscular Volume 92 fL (79-100) Mean Corpuscular Hemoglobin 31 pg (25-35) Mean Corpuscular Hemoglobin Concent 34 g/dL (31-37) Red Cell Distribution Width 13.7 % (11.5-14.5) Platelet Count 205 x10^3/uL (140-400) Neutrophils (%) (Auto) 71 % (31-73) Lymphocytes (%) (Auto) 19 % (24-48) L Monocytes (%) (Auto) 8 % (0-9) Eosinophils (%) (Auto) 1 % (0-3) Basophils (%) (Auto) 1 % (0-3) Neutrophils # (Auto) 4.3 x10^3uL (1.8-7.7) Lymphocytes # (Auto) 1.2 x10^3/uL (1.0-4.8) Monocytes # (Auto) 0.5 x10^3/uL (0.0-1.1) Eosinophils # (Auto) 0.1 x10^3/uL (0.0-0.7) Basophils # (Auto) 0.1 x10^3/uL (0.0-0.2) Sodium Level 132 mmol/L (136-145) L Potassium Level 3.9 mmol/L (3.5-5.1) Chloride Level 96 mmol/L (98-107) L Carbon Dioxide Level 26 mmol/L (21-32) Anion Gap 10 (6-14) Blood Urea Nitrogen 12 mg/dL (8-26) Creatinine 0.8 mg/dL (0.7-1.3) Estimated GFR (Cockcroft-Gault) 99.3 BUN/Creatinine Ratio 15 (6-20) Glucose Level 89 mg/dL (70-99) Calcium Level 9.2 mg/dL (8.5-10.1) Total Bilirubin 0.2 mg/dL (0.2-1.0) Aspartate Amino Transferase (AST) 24 U/L (15-37) Alanine Aminotransferase (ALT) 32 U/L (16-63) Alkaline Phosphatase 128 U/L (46-116) H Total Protein 7.2 g/dL (6.4-8.2) Albumin 3.7 g/dL (3.4-5.0) Albumin/Globulin Ratio 1.1 (1.0-1.7) Current Medications: I have reviewed the current psychotropics carefully including drug interactions. Risk benefit ratio favors no change other than as noted in my dictated progress note. Diagnosis: Problems: (1) Anxiety disorder (2) Impulse control disorder (3) Schizoaffective disorder, bipolar type (4) Schizoaffective disorder, chronic condition with acute exacerbation (5) Schizophrenia, paranoid, chronic with acute exacerbation LEONARD ASHFORD MD Jul 31, 2019 07:48
[2019-07-31] MEDS: PANTOPRAZOLE 40 MG TABLET. PO SCH (08:46)
[2019-07-31] MEDS: MULTIVITAMIN with MINERAL TABLET. PO SCH (08:47)
[2019-07-31] MEDS: LISINOPRIL 20 MG TABLET PO SCH (08:47)
[2019-07-31] MEDS: GABAPENTIN 100 MG CAPSULE. PO SCH ×3 (08:47→20:28)
[2019-07-31] MEDS: buPROPion XL 150 MG TAB.ER.24H PO SCH (08:47)
[2019-07-31] MEDS: TAMSULOSIN 0.4 MG CAP.ER.24H. PO SCH (08:47)
[2019-07-31] MEDS: ASPIRIN ENTERIC COATED 81 MG TABLET.DR. PO SCH (08:47)
[2019-07-31] MEDS: DOCUSATE SODIUM 100 MG CAPSULE PO SCH ×2 (08:47→20:28)
[2019-07-31] MEDS: NICOTINE 14MG PATCH. TD SCH (08:48)
[2019-07-31] MEDS: CHOLECALCIFEROL (VITAMIN D3) 1,000 UNIT TABLET PO SCH (08:48)
[2019-07-31] MEDS: AMMONIUM LACTATE 12% TOPICAL LOTION 226GM BOTTLE. TP SCH ×2 (08:48→19:41)
[2019-07-31 15:40] VITALS: BP 123/87
[2019-07-31] MEDS: HYDROcodone/APAP 7.5/325MG 1 TAB TABLET PO PRN ×2 (17:41→22:23)
[2019-07-31] MEDS: MIRTAZAPINE 15 MG TABLET PO SCH (20:28)
--- NOTE | 2019-07-31 22:04 | PDOC ---
Exam Note: Rafael Note: Please also refer to the separate dictated note~for this date of service dictated separately.~Patient seen individually. Discussed the patient with Nursing staff reviewed the chart.~Reviewed interim history and current functioning. Reviewed vital signs,~Labs/ Radiology~and current medications noted below. Continue current treatment with the changes noted in the dictated addendum note Assessment: Vital Signs/I&O: Vital Signs Date Time Temp Pulse Resp B/P (MAP) Pulse Ox O2 Delivery O2 Flow Rate FiO2 07/31/19 18:33 98.3 07/31/19 18:31 20 07/31/19 18:23 99 99 Room Air 07/31/19 15:40 123/87 (99) I & O 07/30/19 07/30/19 07/31/19 15:00 23:00 07:00 Intake Total 1200 ml 1320 ml Balance 1200 ml 1320 ml Current Medications: I have reviewed the current psychotropics carefully including drug interactions. Risk benefit ratio favors no change other than as noted in my dictated progress note. Diagnosis: Problems: (1) Anxiety disorder (2) Impulse control disorder (3) Schizoaffective disorder, bipolar type (4) Schizoaffective disorder, chronic condition with acute exacerbation (5) Schizophrenia, paranoid, chronic with acute exacerbation LEONARD ASHFORD MD Jul 31, 2019 22:04
[2019-08-01] MEDS: LEVOTHYROXINE 100 MCG TABLET PO SCH (05:39)
[2019-08-01 06:31] VITALS: BP 135/91
--- NOTE | 2019-08-01 06:44 | PDOC ---
Exam Note: Rafael Note: This note is a late entry for 07/30/2019 covers elements not covered in my initial note. Subjective: The patient was seen face to face in the evening of 07/30/2019. Nursing report was with Radha PERSAUD. Discussed the patient with nursing staff in the evening reviewed the chart. He slept 4-1/4 hours previous night. Previous night he seemed to be flirting with other female patients. Sodium is 132. He remains somewhat hyperverbal, grandiose but quite redirectable. I again had a lengthy discussion with him about water restrictions. He expressed understanding and that he would comply. Review of Systems: Ambulation impaired, in wheelchair. No CV, GI/, Pulmonary, Eye system symptoms on review. Mental Status Exam: Reasonably oriented. He was somewhat over-animated at times but redirectable, laughing at times. No suicidal or homicidal ideation. Abstraction is fair. Computation is impaired. Language function is intact. Mood and affect lability is improved though he is laughing loudly. Laboratory Data: Reviewed. Impression: Schizoaffective disorder, bipolar type, mixed with psychotic features. Rest unchanged. Plan: Continue psychotropics from my initial note. Assessment: Vital Signs/I&O: Vital Signs Date Time Temp Pulse Resp B/P (MAP) Pulse Ox O2 Delivery O2 Flow Rate FiO2 08/01/19 06:31 97.9 79 18 135/91 (106) 98 07/31/19 18:23 Room Air I & O 07/31/19 07/31/19 08/01/19 15:00 23:00 07:00 Intake Total 960 ml 720 ml Balance 960 ml 720 ml Current Medications: I have reviewed the current psychotropics carefully including drug interactions. Risk benefit ratio favors no change other than as noted in my dictated progress note. Diagnosis: Problems: (1) Anxiety disorder (2) Impulse control disorder (3) Schizoaffective disorder, bipolar type (4) Schizoaffective disorder, chronic condition with acute exacerbation (5) Schizophrenia, paranoid, chronic with acute exacerbation LEONARD ASHFORD MD Aug 01, 2019 06:44
[2019-08-01 06:50] LABS: BASO # 0.1 x10^3/uL (0.0-0.2); BASO % 1 % (0-3); EOS # 0.1 x10^3/uL (0.0-0.7); EOS % 1 % (0-3); HEMATOCRIT 40.4 % (39.0-53.0); HEMOGLOBIN 13.8 g/dL (13.0-17.5); LYMPH # 1.7 x10^3/uL (1.0-4.8); LYMPH % 22 % (24-48); MEAN CORPUSCULAR HEMOGLOBIN 31 pg (25-35); MEAN CORPUSCULAR HGB CONC 34 g/dL (31-37); MEAN CORPUSCULAR VOLUME 90 fL (79-100); MONO # 0.6 x10^3/uL (0.0-1.1); MONO % 8 % (0-9); NEUT # 5.3 x10^3uL (1.8-7.7); NEUT % 68 % (31-73); PLATELET COUNT 225 x10^3/uL (140-400); RED BLOOD COUNT 4.48 x10^6/uL (4.30-5.70); WHITE BLOOD COUNT 7.8 x10^3/uL (4.0-11.0)
[2019-08-01 06:52] LABS: ALBUMIN 3.8 g/dL (3.4-5.0); ALBUMIN/GLOBULIN RATIO 1.1 (1.0-1.7); CALCIUM 9.4 mg/dL (8.5-10.1); CREATININE 0.7 mg/dL (0.7-1.3); GFR 115.8; POTASSIUM 3.9 mmol/L (3.5-5.1); TOTAL BILIRUBIN 0.3 mg/dL (0.2-1.0); TOTAL PROTEIN 7.3 g/dL (6.4-8.2)
[2019-08-01] MEDS: PANTOPRAZOLE 40 MG TABLET. PO SCH (07:58)
[2019-08-01] MEDS: ASPIRIN ENTERIC COATED 81 MG TABLET.DR. PO SCH (07:58)
[2019-08-01] MEDS: LISINOPRIL 20 MG TABLET PO SCH (07:59)
[2019-08-01] MEDS: CHOLECALCIFEROL (VITAMIN D3) 1,000 UNIT TABLET PO SCH (08:00)
[2019-08-01] MEDS: MULTIVITAMIN with MINERAL TABLET. PO SCH (08:00)
[2019-08-01] MEDS: GABAPENTIN 100 MG CAPSULE. PO SCH ×3 (08:00→19:53)
[2019-08-01] MEDS: buPROPion XL 150 MG TAB.ER.24H PO SCH (08:00)
[2019-08-01] MEDS: TAMSULOSIN 0.4 MG CAP.ER.24H. PO SCH (08:00)
[2019-08-01] MEDS: DOCUSATE SODIUM 100 MG CAPSULE PO SCH ×2 (08:01→19:52)
[2019-08-01] MEDS: NICOTINE 14MG PATCH. TD SCH (08:01)
[2019-08-01] MEDS: AMMONIUM LACTATE 12% TOPICAL LOTION 226GM BOTTLE. TP SCH ×2 (08:02→19:52)
[2019-08-01] MEDS: ACETAMINOPHEN 325 MG TABLET PO PRN (08:10)
[2019-08-01 15:54] VITALS: BP 153/97
[2019-08-01] MEDS: MIRTAZAPINE 15 MG TABLET PO SCH (19:52)
--- NOTE | 2019-08-01 21:36 | PDOC ---
Exam Note: Rafael Note: Please also refer to the separate dictated note~for this date of service dictated separately.~Patient seen individually. Discussed the patient with Nursing staff reviewed the chart.~Reviewed interim history and current functioning. Reviewed vital signs,~Labs/ Radiology~and current medications noted below. Continue current treatment with the changes noted in the dictated addendum note Assessment: Vital Signs/I&O: Vital Signs Date Time Temp Pulse Resp B/P (MAP) Pulse Ox O2 Delivery O2 Flow Rate FiO2 08/01/19 18:18 98.1 08/01/19 15:54 101 20 153/97 (115) 99 07/31/19 18:23 Room Air I & O 07/31/19 07/31/19 08/01/19 15:00 23:00 07:00 Intake Total 960 ml 720 ml Balance 960 ml 720 ml Labs: Laboratory Tests Test 08/01/19 06:14 White Blood Count 7.8 x10^3/uL (4.0-11.0) Red Blood Count 4.48 x10^6/uL (4.30-5.70) Hemoglobin 13.8 g/dL (13.0-17.5) Hematocrit 40.4 % (39.0-53.0) Mean Corpuscular Volume 90 fL (79-100) Mean Corpuscular Hemoglobin 31 pg (25-35) Mean Corpuscular Hemoglobin Concent 34 g/dL (31-37) Red Cell Distribution Width 14.0 % (11.5-14.5) Platelet Count 225 x10^3/uL (140-400) Neutrophils (%) (Auto) 68 % (31-73) Lymphocytes (%) (Auto) 22 % (24-48) L Monocytes (%) (Auto) 8 % (0-9) Eosinophils (%) (Auto) 1 % (0-3) Basophils (%) (Auto) 1 % (0-3) Neutrophils # (Auto) 5.3 x10^3uL (1.8-7.7) Lymphocytes # (Auto) 1.7 x10^3/uL (1.0-4.8) Monocytes # (Auto) 0.6 x10^3/uL (0.0-1.1) Eosinophils # (Auto) 0.1 x10^3/uL (0.0-0.7) Basophils # (Auto) 0.1 x10^3/uL (0.0-0.2) Sodium Level 130 mmol/L (136-145) L Potassium Level 3.9 mmol/L (3.5-5.1) Chloride Level 95 mmol/L (98-107) L Carbon Dioxide Level 26 mmol/L (21-32) Anion Gap 9 (6-14) Blood Urea Nitrogen 12 mg/dL (8-26) Creatinine 0.7 mg/dL (0.7-1.3) Estimated GFR (Cockcroft-Gault) 115.8 BUN/Creatinine Ratio 17 (6-20) Glucose Level 96 mg/dL (70-99) Calcium Level 9.4 mg/dL (8.5-10.1) Total Bilirubin 0.3 mg/dL (0.2-1.0) Aspartate Amino Transferase (AST) 22 U/L (15-37) Alanine Aminotransferase (ALT) 32 U/L (16-63) Alkaline Phosphatase 132 U/L (46-116) H Total Protein 7.3 g/dL (6.4-8.2) Albumin 3.8 g/dL (3.4-5.0) Albumin/Globulin Ratio 1.1 (1.0-1.7) Current Medications: I have reviewed the current psychotropics carefully including drug interactions. Risk benefit ratio favors no change other than as noted in my dictated progress note. Diagnosis: Problems: (1) Anxiety disorder (2) Impulse control disorder (3) Schizoaffective disorder, bipolar type (4) Schizoaffective disorder, chronic condition with acute exacerbation (5) Schizophrenia, paranoid, chronic with acute exacerbation LEONARD ASHFORD MD Aug 01, 2019 21:36
[2019-08-01] MEDS ORDERED: MIRT15TA3 PO (23:40)
[2019-08-01] MEDS ORDERED: NICO1PAT25 TD (23:41)
[2019-08-01] MEDS ORDERED: LISI-334 PO (23:41)
[2019-08-01] MEDS ORDERED: METH57CR17 TP (23:42)
[2019-08-01] MEDS ORDERED: OXCA300T3 PO (23:45)
[2019-08-01] MEDS ORDERED: OXCA600T3 PO (23:48)
[2019-08-01] MEDS ORDERED: OLAN5TAB5 PO (23:50)
[2019-08-01] MEDS ORDERED: MAG30ORA2 PO (23:51)
[2019-08-01] MEDS ORDERED: MAGN400O7 PO (23:53)
[2019-08-01] MEDS ORDERED: BACI1OIN5 TP (23:56)
[2019-08-01] MEDS ORDERED: AMMO225L5 TP (23:57)
[2019-08-02] MEDS: ACETAMINOPHEN 325 MG TABLET PO PRN ×2 (04:29→12:11)
[2019-08-02] MEDS: LEVOTHYROXINE 100 MCG TABLET PO SCH (05:16)
[2019-08-02 06:07] VITALS: BP 142/88
--- NOTE | 2019-08-02 07:14 | PDOC ---
Exam Note: Rafael Note: This note is a late entry for 07/31/2019 covers elements not covered in my initial note. Subjective: The patient was seen face to face in the evening of 07/31/2019. Nursing report was with Radha PERSAUD. He remains a little hyperverbal and somewhat grandiose, but generally had a better day per nursing report. He has had some elevation in his heart rate. We will defer to Dr. Estrada and nursing staff feel this elevation is consequent to his attempt to ambulate himself which he is trying to push himself. Review of Systems: Ambulation impaired, in wheelchair. No CV, GI/, Pulmonary, Eye system symptoms on review. Reportedly he had complained of some chest pain previous evening, again defer to Dr. Estrada. Mental Status Exam: Reasonably oriented. He was a little hyperverbal, somewhat overtly animated but redirectable, at times distracted. No suicidal or homicidal ideation. Abstraction is fair. Computation is impaired. Language function is intact. Mood and affect lability is improved though he is laughing loudly. Laboratory Data: Reviewed. Impression: Schizoaffective disorder, bipolar type, mixed with psychotic features. Rest unchanged. Plan: Continue psychotropics from my initial note. Adjust further as clinically indicated Assessment: Vital Signs/I&O: Vital Signs Date Time Temp Pulse Resp B/P (MAP) Pulse Ox O2 Delivery O2 Flow Rate FiO2 08/02/19 06:07 97.8 87 20 142/88 (106) 96 07/31/19 18:23 Room Air I & O 08/01/19 08/01/19 08/02/19 15:00 23:00 07:00 Intake Total 960 ml 580 ml Balance 960 ml 580 ml Current Medications: I have reviewed the current psychotropics carefully including drug interactions. Risk benefit ratio favors no change other than as noted in my dictated progress note. Diagnosis: Problems: (1) Anxiety disorder (2) Impulse control disorder (3) Schizoaffective disorder, bipolar type (4) Schizoaffective disorder, chronic condition with acute exacerbation (5) Schizophrenia, paranoid, chronic with acute exacerbation LEONARD ASHFORD MD Aug 02, 2019 07:14
[2019-08-02 08:23] VITALS: BP 142/88
[2019-08-02] MEDS: NICOTINE 14MG PATCH. TD SCH (08:23)
[2019-08-02] MEDS: DOCUSATE SODIUM 100 MG CAPSULE PO SCH (08:23)
[2019-08-02] MEDS: buPROPion XL 150 MG TAB.ER.24H PO SCH (08:23)
[2019-08-02] MEDS: TAMSULOSIN 0.4 MG CAP.ER.24H. PO SCH (08:23)
[2019-08-02] MEDS: LISINOPRIL 20 MG TABLET PO SCH (08:23)
[2019-08-02] MEDS: MULTIVITAMIN with MINERAL TABLET. PO SCH (08:24)
[2019-08-02] MEDS: PANTOPRAZOLE 40 MG TABLET. PO SCH (08:24)
[2019-08-02] MEDS: CHOLECALCIFEROL (VITAMIN D3) 1,000 UNIT TABLET PO SCH (08:24)
[2019-08-02] MEDS: GABAPENTIN 100 MG CAPSULE. PO SCH ×2 (08:24→12:11)
[2019-08-02] MEDS: ASPIRIN ENTERIC COATED 81 MG TABLET.DR. PO SCH (08:24)
[2019-08-02] MEDS: AMMONIUM LACTATE 12% TOPICAL LOTION 226GM BOTTLE. TP SCH (09:27)
--- NOTE | 2019-08-02 22:25 | PDOC ---
Exam Note: Rafael Note: This note is a late entry for 08/01/2019 covers elements not covered in my initial note. Subjective: The patient was seen face to face in the evening of 08/01/2019. Nursing report was with Daphne PERSAUD. He slept 5-1/4 hours. He continues to be somewhat hyperverbal at times but redirectable. Water restriction is better. Review of Systems: Ambulation impaired, in wheelchair. No CV, GI/, Pulmonary, Eye system symptoms on review. Mental Status Exam: Reasonably oriented. He is somewhat over-animated, loud, laughing at times but again redirectable. No suicidal or homicidal ideation. Abstraction is fair. Computation is impaired. Language function is intact. Mood and affect lability is improved though he is laughing loudly. Laboratory Data: Reviewed. Impression: Schizoaffective disorder, bipolar type, mixed with psychotic features. Rest unchanged. Plan: Continue psychotropics unchanged for now. We will add Trileptal 300 mg at noon. Continue 600 mg a.m. and h.s. Assessment: Vital Signs/I&O: Vital Signs Date Time Temp Pulse Resp B/P (MAP) Pulse Ox O2 Delivery O2 Flow Rate FiO2 08/02/19 08:23 87 142/88 08/02/19 06:07 97.8 20 96 07/31/19 18:23 Room Air I & O 08/01/19 08/01/19 08/02/19 15:00 23:00 07:00 Intake Total 960 ml 580 ml Balance 960 ml 580 ml Current Medications: Meds: Current Medications Medications (Trade) Dose Ordered Sig/Rober Route PRN Reason Start Time Stop Time Status Last Admin Dose Admin Oxcarbazepine (Trileptal) 300 mg DAILYWLUN PO 08/02/19 12:00 08/02/19 13:32 DC 08/02/19 12:11 I have reviewed the current psychotropics carefully including drug interactions. Risk benefit ratio favors no change other than as noted in my dictated progress note. Diagnosis: Problems: (1) Anxiety disorder (2) Impulse control disorder (3) Schizoaffective disorder, bipolar type (4) Schizoaffective disorder, chronic condition with acute exacerbation (5) Schizophrenia, paranoid, chronic with acute exacerbation LEONARD ASHFORD MD Aug 02, 2019 22:25
--- NOTE | 2019-08-02 22:25 | PDOC ---
Exam Note: Rafael Note: Please also refer to the separate dictated note~for this date of service dictated separately.~Patient seen individually. Discussed the patient with Nursing staff reviewed the chart.~Reviewed interim history and current functioning. Reviewed vital signs,~Labs/ Radiology~and current medications noted below. Continue current treatment with the changes noted in the dictated addendum note Assessment: Vital Signs/I&O: Vital Signs Date Time Temp Pulse Resp B/P (MAP) Pulse Ox O2 Delivery O2 Flow Rate FiO2 08/02/19 08:23 87 142/88 08/02/19 06:07 97.8 20 96 07/31/19 18:23 Room Air I & O 08/01/19 08/01/19 08/02/19 15:00 23:00 07:00 Intake Total 960 ml 580 ml Balance 960 ml 580 ml Current Medications: Meds: Current Medications Medications (Trade) Dose Ordered Sig/Rober Route PRN Reason Start Time Stop Time Status Last Admin Dose Admin Oxcarbazepine (Trileptal) 300 mg DAILYWLUN PO 08/02/19 12:00 08/02/19 13:32 DC 08/02/19 12:11 I have reviewed the current psychotropics carefully including drug interactions. Risk benefit ratio favors no change other than as noted in my dictated progress note. Diagnosis: Problems: (1) Anxiety disorder (2) Impulse control disorder (3) Schizoaffective disorder, bipolar type (4) Schizoaffective disorder, chronic condition with acute exacerbation (5) Schizophrenia, paranoid, chronic with acute exacerbation LEONARD ASHFORD MD Aug 02, 2019 22:25
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
== END 2019-08-02 13:30 | DRG 885 ==
LOC: ER 14:19 → GEROPSY 16:55
PROVIDERS: ADMIT Psychiatry & Neurology Psychiatry; ATTEND Psychiatry & Neurology Psychiatry
DX: F25.0 Schizoaffective disorder, bipolar type (principal); E22.2 Syndrome of inappropriate secretion of antidiuretic hormone; D72.829 Elevated white blood cell count, unspecified; E03.9 Hypothyroidism, unspecified; E83.42 Hypomagnesemia; F17.200 Nicotine dependence, unspecified, uncomplicated; F41.1 Generalized anxiety disorder; F63.9 Impulse disorder, unspecified; G89.29 Other chronic pain; I10 Essential (primary) hypertension; J44.9 Chronic obstructive pulmonary disease, unspecified; Z66 Do not resuscitate; Z79.899 Other long term (current) drug therapy; Z91.19 Patient's noncompliance with other medical treatment and regimen; F10.10 Alcohol abuse, uncomplicated; K21.9 Gastro-esophageal reflux disease without esophagitis
CPT/HCPCS: 36415; 71045; 80048; 80053; 80061; 80307; 81001; 82306; 82607; 83036; 83540; 83550; 83735; 84436; 84443; 84480; 84484; 85025; 86592; 93005; 94640; 99406; J1050; J1631; 99285-25

== ENCOUNTER 2020-05-30 13:58 | Inpatient (IN) | payer MEDICARE, MEDICAID ==
[~2020-05-30] VITALS: Ht 188 cm; Wt 129.5 kg
[~2020-05-30 13:58] MED LIST changes: +AMMO225L5 TP; -ASPI-612 PO; +ASPI-889 PO; +BACI1OIN5 TP; -BUPR-192 PO; +BUPR150T21 PO; +GABA-585 PO; +HYDR-3166 PO; +LISI20TA18 PO; +MAG-124 PO; -MAG-95 PO; +MAG30ORA2 PO; +MAGN400O7 PO; +MIRT15TA3 PO; +NICO1PAT25 TD; +OLAN5TAB99 PO; +OXCA300T3 PO; +OXCA600T3 PO; -PANT40TA5 PO; +PANT40TA6 PO
[2020-05-30] MEDS ORDERED: SPIR25TA5 PO (14:47)
[2020-05-30] MEDS ORDERED: METF500T16 PO (14:47)
[2020-05-30] MEDS ORDERED: NEOM500T PO (14:47)
[2020-05-30] MEDS ORDERED: POTA10TA5 PO (14:47)
[2020-05-30] MEDS ORDERED: OMEP20CA16 PO (14:47)
[2020-05-30] MEDS ORDERED: NACL PO (14:47)
[2020-05-30] MEDS ORDERED: LISI-517 PO (14:47)
[2020-05-30] MEDS ORDERED: FURO-68 PO (14:47)
[2020-05-30] MEDS ORDERED: DEMECLOCYCLINE PO (14:47)
[2020-05-30] MEDS ORDERED: RISP0.5T62 PO (14:47)
[2020-05-30] MEDS ORDERED: PALI234D IM (14:47)
[2020-05-30] MEDS ORDERED: MAG HYDROX/AL HYDROX/SIMETH 30 ML ORAL.SUSP PO PRN (15:45)
[2020-05-30] MEDS ORDERED: ACETAMINOPHEN 325 MG TABLET PO PRN (15:45)
[2020-05-30] MEDS ORDERED: METHYL SALICYLATE/MENTHOL TOPICAL OINTMENT 57GM TUBE. TP PRN (15:45)
[2020-05-30] MEDS ORDERED: MAGNESIUM HYDROXIDE 2,400 MG/30 ML ORAL.SUSP. PO PRN (15:45)
[2020-05-30] MEDS ORDERED: metFORMIN 500 MG TABLET PO SCH (17:00)
[2020-05-30 17:05] LABS: BASO # 0.1 x10^3/uL (0.0-0.2); BASO % 1 % (0-3); EOS # 0.1 x10^3/uL (0.0-0.7); EOS % 1 % (0-3); HEMATOCRIT 35.1 % (39.0-53.0); HEMOGLOBIN 11.6 g/dL (13.0-17.5); LYMPH # 1.6 x10^3/uL (1.0-4.8); LYMPH % 20 % (24-48); MEAN CORPUSCULAR HEMOGLOBIN 32 pg (25-35); MEAN CORPUSCULAR HGB CONC 33 g/dL (31-37); MEAN CORPUSCULAR VOLUME 96 fL (79-100); MONO # 0.6 x10^3/uL (0.0-1.1); MONO % 8 % (0-9); NEUT # 5.4 x10^3uL (1.8-7.7); NEUT % 70 % (31-73); PLATELET COUNT 241 x10^3/uL (140-400); RED BLOOD COUNT 3.66 x10^6/uL (4.30-5.70); RED CELL DISTRIBUTION WIDTH 13.7 % (11.5-14.5); WHITE BLOOD COUNT 7.7 x10^3/uL (4.0-11.0)
[2020-05-30] MEDS: NICOTINE 21MG PATCH. TD SCH (17:15)
[2020-05-30 17:22] LABS: ALBUMIN 3.4 g/dL (3.4-5.0); CALCIUM 8.4 mg/dL (8.5-10.1); CREATININE 1.5 mg/dL (0.7-1.3); GFR 47.9; MAGNESIUM 1.3 mg/dL (1.8-2.4); POTASSIUM 4.2 mmol/L (3.5-5.1); TOTAL BILIRUBIN 0.2 mg/dL (0.2-1.0); TOTAL PROTEIN 6.9 g/dL (6.4-8.2)
--- NOTE | 2020-05-30 18:18 | EKG ---
[address] [address] Test Date: 2020-05-30 Test Time: 16:15:03 Pat Name: JULIANE AYALA Department: Room: [address] [place] [address] Gender: M [employer] Counselor: : 1960 Requested By: STEVIE NESS Order Number: [id number] Reading MD: Measurements Intervals [place] Rate: P: IA: QRS: QRSD: T: QT: QTc: Interpretive Statements
[2020-05-30] MEDS: risperiDONE 0.5 MG TABLET. PO SCH (20:27)
[2020-05-30] MEDS: DOCUSATE SODIUM 100 MG CAPSULE PO SCH (20:27)
[2020-05-30] MEDS: GABAPENTIN 100 MG CAPSULE. PO SCH (20:27)
[2020-05-30] MEDS: DEMECLOCYCLINE HCL 150 MG TABLET. PO SCH (20:52)
[2020-05-30] MEDS: SODIUM CHLORIDE 1 GM TABLET PO SCH (20:52)
[2020-05-30 22:00] VITALS: BP 108/71
[2020-05-31] MEDS: LEVOTHYROXINE 100 MCG TABLET PO SCH (05:17)
[2020-05-31 06:21] LABS: BILIRUBIN,URINE NEG (NEG); CLARITY,URINE HAZY; COLOR,URINE YELLOW; GLUCOSE,URINE NEG (NEG); NITRITE,URINE NEG (NEG); UROBILINOGEN,URINE 0.2 mg/dL (0.2 mg/dL)
[2020-05-31 06:22] VITALS: BP 112/79
[2020-05-31 06:22] LABS: BACTERIA,URINE 0 /HPF (0-FEW); RBC,URINE RARE /HPF (0-2); SQUAMOUS EPITHELIAL CELL,UR FEW /LPF
[2020-05-31 06:23] LABS: AMORPHOUS SEDIMENT,UR PRESENT /HPF
[2020-05-31] MEDS: NICOTINE 21MG PATCH. TD SCH (08:06)
[2020-05-31] MEDS: DOCUSATE SODIUM 100 MG CAPSULE PO SCH ×2 (08:06→20:19)
[2020-05-31] MEDS: risperiDONE 0.5 MG TABLET. PO SCH ×3 (08:06→20:19)
[2020-05-31] MEDS: TAMSULOSIN 0.4 MG CAP.ER.24H. PO SCH (08:11)
[2020-05-31] MEDS: POTASSIUM CHLORIDE 10 MEQ TABLET.ER. PO SCH (08:11)
[2020-05-31] MEDS: ASPIRIN ENTERIC COATED 81 MG TABLET.DR. PO SCH (08:11)
[2020-05-31] MEDS: FUROSEMIDE 40 MG TABLET PO SCH (08:12)
[2020-05-31] MEDS: CHOLECALCIFEROL (VITAMIN D3) 1,000 UNIT TABLET PO SCH (08:12)
[2020-05-31] MEDS: LISINOPRIL 20 MG TABLET PO SCH (08:12)
[2020-05-31] MEDS: buPROPion SR 100 MG TABLET.SA. PO SCH (08:13)
[2020-05-31] MEDS: LISINOPRIL 5 MG TABLET. PO SCH (08:13)
[2020-05-31] MEDS: MULTIVITAMIN with MINERAL TABLET. PO SCH (08:13)
[2020-05-31] MEDS: SPIRONOLACTONE 25 MG TABLET PO SCH (08:14)
[2020-05-31] MEDS: GABAPENTIN 100 MG CAPSULE. PO SCH ×3 (08:14→20:19)
[2020-05-31] MEDS: PANTOPRAZOLE 40 MG TABLET. PO SCH (08:14)
[2020-05-31] MEDS: DEMECLOCYCLINE HCL 150 MG TABLET. PO SCH ×2 (08:18→20:20)
[2020-05-31] MEDS: SODIUM CHLORIDE 1 GM TABLET PO SCH ×2 (08:18→20:19)
[2020-05-31] MEDS ORDERED: NEOMYCIN SULFATE 500 MG TABLET PO SCH (09:00)
[2020-05-31 15:45] VITALS: BP 110/78
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
[2020-05-31 19:20] LABS: THYROXINE 7.2 ug/dL (4.5-12.0)
[2020-05-31 19:23] LABS: THYROID STIM HORMONE (TSH) 0.439 uIU/mL (0.358-3.740)
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
[2020-06-01] MEDS: LEVOTHYROXINE 100 MCG TABLET PO SCH (05:25)
[2020-06-01 06:10] VITALS: BP 103/71
[2020-06-01] MEDS: NICOTINE 21MG PATCH. TD SCH (08:07)
[2020-06-01] MEDS: DEMECLOCYCLINE HCL 150 MG TABLET. PO SCH ×2 (08:07→20:22)
[2020-06-01] MEDS: MULTIVITAMIN with MINERAL TABLET. PO SCH (08:07)
[2020-06-01] MEDS: ASPIRIN ENTERIC COATED 81 MG TABLET.DR. PO SCH (08:07)
[2020-06-01] MEDS: POTASSIUM CHLORIDE 10 MEQ TABLET.ER. PO SCH (08:07)
[2020-06-01] MEDS: buPROPion SR 100 MG TABLET.SA. PO SCH (08:08)
[2020-06-01] MEDS: TAMSULOSIN 0.4 MG CAP.ER.24H. PO SCH (08:08)
[2020-06-01] MEDS: GABAPENTIN 100 MG CAPSULE. PO SCH ×3 (08:08→20:22)
[2020-06-01] MEDS: PANTOPRAZOLE 40 MG TABLET. PO SCH (08:08)
[2020-06-01] MEDS: DOCUSATE SODIUM 100 MG CAPSULE PO SCH ×2 (08:10→20:22)
[2020-06-01] MEDS: FUROSEMIDE 40 MG TABLET PO SCH (08:10)
[2020-06-01] MEDS: CHOLECALCIFEROL (VITAMIN D3) 1,000 UNIT TABLET PO SCH (08:10)
[2020-06-01] MEDS: SPIRONOLACTONE 25 MG TABLET PO SCH (08:11)
[2020-06-01] MEDS: SODIUM CHLORIDE 1 GM TABLET PO SCH ×2 (08:11→20:22)
[2020-06-01] MEDS: LISINOPRIL 20 MG TABLET PO SCH (08:12)
[2020-06-01] MEDS: LISINOPRIL 5 MG TABLET. PO SCH (08:12)
[2020-06-01] MEDS: risperiDONE 0.5 MG TABLET. PO SCH ×3 (08:13→20:23)
[2020-06-01 16:37] VITALS: BP 135/92
--- NOTE | 2020-06-01 19:55 | PN ---
DATE: 06/01/2020 SUBJECTIVE: The patient was seen today, met with the staff, chart reviewed, and covering for Dr. Bey. Staff reports he has obsessive compulsive behaviors, especially going to the toilet, sits there for a long period of time and will clock the toilet with toilet paper. Staff also reports he is sleeping nude at night. The patient apparently has problems with boundaries. Staff reports no overt psychotic symptoms. OBSERVATION: VITAL SIGNS: Temperature 98.6, blood pressure 103/91, pulse 96, respirations 20, O2 sat 94%. GENERAL: Slept about 7 hours last night. The patient's appetite is good. LABORATORY DATA: The patient's lab reviewed. The patient's hemoglobin A1c was 6 and creatinine 1.5. MEDICATIONS: The patient's current medication includes Invega Sustenna 234 mg IM monthly, Trileptal 600 mg daily, bupropion 200 mg daily, gabapentin 100 mg 3 times a day. The patient is not having any side effects to medications. ASSESSMENT: 1. Schizoaffective disorder, bipolar type, mixed, with psychotic features. 2. Anxiety disorder, unspecified. 3. Impulse control disorder, unspecified. 4. Alcohol abuse. AXIS II: None. AXIS III: As listed above. PLAN: Continue with the current medications and also the patient will be encouraged about his behaviors including being mute at times. LENGTH OF STAY: 7-10 days. STEVIE NESS MD DR: FILIPE/hemal JOB#: [id number] / [id number]
[2020-06-02] MEDS: LEVOTHYROXINE 100 MCG TABLET PO SCH (05:03)
[2020-06-02 06:00] VITALS: BP 112/81
[2020-06-02] MEDS: NICOTINE 21MG PATCH. TD SCH (08:30)
[2020-06-02] MEDS: SODIUM CHLORIDE 1 GM TABLET PO SCH ×2 (08:30→20:33)
[2020-06-02] MEDS: buPROPion SR 100 MG TABLET.SA. PO SCH (08:30)
[2020-06-02] MEDS: PANTOPRAZOLE 40 MG TABLET. PO SCH (08:31)
[2020-06-02] MEDS: SPIRONOLACTONE 25 MG TABLET PO SCH (08:31)
[2020-06-02] MEDS: LISINOPRIL 20 MG TABLET PO SCH (08:31)
[2020-06-02] MEDS: POTASSIUM CHLORIDE 10 MEQ TABLET.ER. PO SCH (08:32)
[2020-06-02] MEDS: MULTIVITAMIN with MINERAL TABLET. PO SCH (08:32)
[2020-06-02] MEDS: FUROSEMIDE 40 MG TABLET PO SCH (08:32)
[2020-06-02] MEDS: TAMSULOSIN 0.4 MG CAP.ER.24H. PO SCH (08:32)
[2020-06-02] MEDS: CHOLECALCIFEROL (VITAMIN D3) 1,000 UNIT TABLET PO SCH (08:32)
[2020-06-02] MEDS: risperiDONE 0.5 MG TABLET. PO SCH ×3 (08:32→20:32)
[2020-06-02] MEDS: ASPIRIN ENTERIC COATED 81 MG TABLET.DR. PO SCH (08:32)
[2020-06-02] MEDS: DOCUSATE SODIUM 100 MG CAPSULE PO SCH ×2 (08:32→20:32)
[2020-06-02] MEDS: LISINOPRIL 5 MG TABLET. PO SCH (08:33)
[2020-06-02] MEDS: GABAPENTIN 100 MG CAPSULE. PO SCH ×3 (08:33→20:32)
[2020-06-02] MEDS: DEMECLOCYCLINE HCL 150 MG TABLET. PO SCH ×2 (08:33→20:33)
[2020-06-02] MEDS ORDERED: NON FORMULARY ITEM (Medroxyprogesterone Acetate (Depo-Provera) 1 ML) IM SCH (09:00)
[2020-06-02] MEDS: medroxyPROGESTERone IM 150 MG/ML VIAL. IM SCH (10:15)
[2020-06-02 16:20] VITALS: BP 107/74
--- NOTE | 2020-06-02 21:57 | PN ---
DATE: 06/02/2020 SUBJECTIVE: The patient was seen today, met with the staff, chart reviewed, and covering for Dr. Bey. Staff reports that he is compliant with medications. Continues to block the toilet by flushing lot of toilet paper. The patient also incontinent of urine at times. Otherwise, the patient denies of having any problems. The patient apparently exhibiting behaviors including being grandiose, increased psychomotor activity and also lacking insight to his problems. The patient continues to talk about his drinking problems. OBSERVATION: VITAL SIGNS: Temperature 97.1, blood pressure 112/81, pulse 94, respirations 16, O2 sat 96%. GENERAL: Slept about 6 hours last night. The patient's appetite is good. MEDICATIONS: The patient's current medications include Invega Sustenna 234 mg monthly IM. He is also on Trileptal 600 mg daily, bupropion 200 mg daily, Risperdal 0.5 mg t.i.d., gabapentin 100 mg t.i.d. The patient is not having any side effects. LABORATORY DATA: The patient's lab reviewed. ASSESSMENT: 1. Schizoaffective disorder, bipolar type, mixed, with psychotic features. 2. Anxiety disorder, unspecified. 3. Impulse control disorder, unspecified. 4. Alcohol abuse. PLAN: To continue with the current medications and the treatment. LENGTH OF STAY: 7 days. STEVIE NESS MD DR: FILIPE/hemal JOB#: [id number] / [id number]
[2020-06-03] MEDS: LEVOTHYROXINE 100 MCG TABLET PO SCH (05:29)
[2020-06-03 06:11] VITALS: BP 107/77
[2020-06-03] MEDS: FUROSEMIDE 40 MG TABLET PO SCH (07:43)
[2020-06-03] MEDS: CHOLECALCIFEROL (VITAMIN D3) 1,000 UNIT TABLET PO SCH (07:43)
[2020-06-03] MEDS: MULTIVITAMIN with MINERAL TABLET. PO SCH (07:44)
[2020-06-03] MEDS: LISINOPRIL 20 MG TABLET PO SCH (07:44)
[2020-06-03] MEDS: ASPIRIN ENTERIC COATED 81 MG TABLET.DR. PO SCH (07:44)
[2020-06-03] MEDS: buPROPion SR 100 MG TABLET.SA. PO SCH (07:44)
[2020-06-03] MEDS: risperiDONE 0.5 MG TABLET. PO SCH ×3 (07:44→21:36)
[2020-06-03] MEDS: PANTOPRAZOLE 40 MG TABLET. PO SCH (07:44)
[2020-06-03] MEDS: DOCUSATE SODIUM 100 MG CAPSULE PO SCH ×2 (07:45→21:36)
[2020-06-03] MEDS: SPIRONOLACTONE 25 MG TABLET PO SCH (07:45)
[2020-06-03] MEDS: NICOTINE 21MG PATCH. TD SCH (07:45)
[2020-06-03] MEDS: POTASSIUM CHLORIDE 10 MEQ TABLET.ER. PO SCH (07:45)
[2020-06-03] MEDS: GABAPENTIN 100 MG CAPSULE. PO SCH ×3 (07:46→21:37)
[2020-06-03] MEDS: TAMSULOSIN 0.4 MG CAP.ER.24H. PO SCH (07:47)
[2020-06-03] MEDS: SODIUM CHLORIDE 1 GM TABLET PO SCH ×2 (07:49→21:35)
[2020-06-03] MEDS: DEMECLOCYCLINE HCL 150 MG TABLET. PO SCH ×2 (07:49→21:35)
[2020-06-03] MEDS: LISINOPRIL 5 MG TABLET. PO SCH (07:51)
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
[2020-06-03 15:41] VITALS: BP 125/84
--- NOTE | 2020-06-03 20:35 | PN ---
DATE: 06/03/2020 SUBJECTIVE: The patient was seen today, met with the staff, chart reviewed and also covering for Dr. Bey. Staff reports that the patient stayed in bed all night and compliant with medications. The patient is somewhat euphoric, loud, lacking insight to his problems. OBSERVATION: VITAL SIGNS: Temperature 99.2, blood pressure 168/94, pulse 75, respirations 20, O2 sat 96%. GENERAL: Slept about 8 hours last night. The patient's appetite is good. The patient is not presenting with any major medical issues. CURRENT MEDICATIONS: Include Invega Sustenna 234 mg monthly IM, Trileptal 600 mg daily, bupropion 200 mg daily, Risperdal 0.5 mg t.i.d., and gabapentin 100 mg t.i.d. The patient is not exhibiting any side effects to medications. LABORATORY DATA: The patient's lab reviewed. ASSESSMENT: 1. Schizoaffective disorder, bipolar type, mixed, with psychotic features. 2. Anxiety disorder, unspecified. 3. Impulse control disorder, unspecified. 4. Alcohol abuse. PLAN: To continue with the treatment. LENGTH OF STAY: 7 days. STEVIE NESS MD DR: FILIPE/hemal JOB#: [id number] / [id number]
[2020-06-04] MEDS: LEVOTHYROXINE 100 MCG TABLET PO SCH (05:50)
[2020-06-04 06:00] VITALS: BP 111/78
[2020-06-04] MEDS: NICOTINE 21MG PATCH. TD SCH (08:06)
[2020-06-04] MEDS: CHOLECALCIFEROL (VITAMIN D3) 1,000 UNIT TABLET PO SCH (08:07)
[2020-06-04] MEDS: buPROPion SR 100 MG TABLET.SA. PO SCH (08:07)
[2020-06-04] MEDS: MULTIVITAMIN with MINERAL TABLET. PO SCH (08:07)
[2020-06-04] MEDS: SODIUM CHLORIDE 1 GM TABLET PO SCH ×2 (08:07→19:29)
[2020-06-04] MEDS: risperiDONE 0.5 MG TABLET. PO SCH ×3 (08:08→19:27)
[2020-06-04] MEDS: DEMECLOCYCLINE HCL 150 MG TABLET. PO SCH ×2 (08:08→19:29)
[2020-06-04] MEDS: TAMSULOSIN 0.4 MG CAP.ER.24H. PO SCH (08:08)
[2020-06-04] MEDS: DOCUSATE SODIUM 100 MG CAPSULE PO SCH ×2 (08:09→19:27)
[2020-06-04] MEDS: FUROSEMIDE 40 MG TABLET PO SCH (08:09)
[2020-06-04] MEDS: ASPIRIN ENTERIC COATED 81 MG TABLET.DR. PO SCH (08:09)
[2020-06-04] MEDS: PANTOPRAZOLE 40 MG TABLET. PO SCH (08:10)
[2020-06-04] MEDS: LISINOPRIL 5 MG TABLET. PO SCH (08:10)
[2020-06-04] MEDS: GABAPENTIN 100 MG CAPSULE. PO SCH ×3 (08:10→19:29)
[2020-06-04] MEDS: SPIRONOLACTONE 25 MG TABLET PO SCH (08:10)
[2020-06-04] MEDS: LISINOPRIL 20 MG TABLET PO SCH (08:11)
[2020-06-04] MEDS: POTASSIUM CHLORIDE 10 MEQ TABLET.ER. PO SCH (08:12)
--- NOTE | 2020-06-04 12:06 | PN ---
DATE: 06/04/2020 SUBJECTIVE: Staff reports continued behavior problems, restless, pacing, verbally aggressive at times. Lately, he has been withdrawn to his room, compliant with the medication. OBSERVATION: VITAL SIGNS: Temperature 97.7, blood pressure 118/78, pulse 102, respirations 20, O2 sat 95%. Slept about 6 hours last night. LABORATORY DATA: The patient's lab reviewed. The patient's appetite is fair. ASSESSMENT: 1. Schizoaffective disorder, bipolar type, mixed, with psychotic features. 2. Anxiety disorder, unspecified. 3. Impulse control disorder, unspecified. PLAN: To continue with the treatment. LENGTH OF STAY: 7 days. STEVIE NESS MD DR: FILIPE/hemal JOB#: [id number] / [id number]
[2020-06-04 15:54] VITALS: BP 110/72
[2020-06-05 05:56] VITALS: BP 117/82
[2020-06-05] MEDS: LEVOTHYROXINE 100 MCG TABLET PO SCH (06:10)
[2020-06-05] MEDS: ASPIRIN ENTERIC COATED 81 MG TABLET.DR. PO SCH (07:44)
[2020-06-05] MEDS: POTASSIUM CHLORIDE 10 MEQ TABLET.ER. PO SCH (07:45)
[2020-06-05] MEDS: LISINOPRIL 5 MG TABLET. PO SCH (07:45)
[2020-06-05] MEDS: TAMSULOSIN 0.4 MG CAP.ER.24H. PO SCH (07:45)
[2020-06-05] MEDS: CHOLECALCIFEROL (VITAMIN D3) 1,000 UNIT TABLET PO SCH (07:45)
[2020-06-05] MEDS: buPROPion SR 100 MG TABLET.SA. PO SCH (07:45)
[2020-06-05] MEDS: SPIRONOLACTONE 25 MG TABLET PO SCH (07:46)
[2020-06-05] MEDS: PANTOPRAZOLE 40 MG TABLET. PO SCH (07:46)
[2020-06-05] MEDS: MULTIVITAMIN with MINERAL TABLET. PO SCH (07:46)
[2020-06-05] MEDS: risperiDONE 0.5 MG TABLET. PO SCH ×3 (07:46→21:18)
[2020-06-05] MEDS: DOCUSATE SODIUM 100 MG CAPSULE PO SCH ×2 (07:46→21:18)
[2020-06-05] MEDS: FUROSEMIDE 40 MG TABLET PO SCH (07:46)
[2020-06-05] MEDS: NICOTINE 21MG PATCH. TD SCH (07:47)
[2020-06-05] MEDS: LISINOPRIL 20 MG TABLET PO SCH (07:47)
[2020-06-05] MEDS: SODIUM CHLORIDE 1 GM TABLET PO SCH ×2 (07:49→21:18)
[2020-06-05] MEDS: GABAPENTIN 100 MG CAPSULE. PO SCH ×3 (07:49→21:18)
[2020-06-05] MEDS: DEMECLOCYCLINE HCL 150 MG TABLET. PO SCH ×2 (07:49→21:17)
[2020-06-05 16:04] VITALS: BP 92/66
--- NOTE | 2020-06-05 22:38 | PN ---
DATE: 06/05/2020 SUBJECTIVE: Staff reports continued behavior problems, restless, pacing, verbally aggressive at times. The patient has been staying in room most of the time. OBSERVATION: VITAL SIGNS: Temperature 95.3, blood pressure 117/82, pulse 88, respirations 18, O2 sat 96%. GENERAL: Slept about 4 hours last night. The patient's appetite normal. MEDICATIONS: The patient's current medications include Invega Sustenna 234 mg monthly IM. He is also on Depo-Provera IM 2 weeks 150 mg, Trileptal 600 mg daily, Wellbutrin-SR 200 mg daily, Risperdal 0.5 mg 3 times a day, gabapentin 100 mg t.i.d. The patient is not having any side effects. LABORATORY DATA: The patient's lab reviewed. ASSESSMENT: 1. Schizoaffective disorder, bipolar type, mixed, with psychotic features. 2. Anxiety disorder, unspecified. 3. Impulse control disorder, unspecified. PLAN: Continue with the treatment. LENGTH OF STAY: 7 days. STEVIE NESS MD DR: FILIPE/hemal JOB#: [id number] / [id number]
[2020-06-06 05:41] VITALS: BP 113/79
[2020-06-06] MEDS: LEVOTHYROXINE 100 MCG TABLET PO SCH (05:41)
[2020-06-06] MEDS: DOCUSATE SODIUM 100 MG CAPSULE PO SCH ×2 (07:58→20:20)
[2020-06-06] MEDS: SODIUM CHLORIDE 1 GM TABLET PO SCH ×2 (07:58→20:21)
[2020-06-06] MEDS: CHOLECALCIFEROL (VITAMIN D3) 1,000 UNIT TABLET PO SCH (07:58)
[2020-06-06] MEDS: GABAPENTIN 100 MG CAPSULE. PO SCH ×3 (07:59→20:21)
[2020-06-06] MEDS: TAMSULOSIN 0.4 MG CAP.ER.24H. PO SCH (07:59)
[2020-06-06] MEDS: DEMECLOCYCLINE HCL 150 MG TABLET. PO SCH ×2 (07:59→20:21)
[2020-06-06] MEDS: buPROPion SR 100 MG TABLET.SA. PO SCH (07:59)
[2020-06-06] MEDS: MULTIVITAMIN with MINERAL TABLET. PO SCH (07:59)
[2020-06-06] MEDS: ASPIRIN ENTERIC COATED 81 MG TABLET.DR. PO SCH (07:59)
[2020-06-06] MEDS: SPIRONOLACTONE 25 MG TABLET PO SCH (08:00)
[2020-06-06] MEDS: FUROSEMIDE 40 MG TABLET PO SCH (08:00)
[2020-06-06] MEDS: PANTOPRAZOLE 40 MG TABLET. PO SCH (08:00)
[2020-06-06] MEDS: POTASSIUM CHLORIDE 10 MEQ TABLET.ER. PO SCH (08:00)
[2020-06-06] MEDS: risperiDONE 0.5 MG TABLET. PO SCH ×3 (08:01→20:20)
[2020-06-06] MEDS: LISINOPRIL 20 MG TABLET PO SCH (08:01)
[2020-06-06] MEDS: LISINOPRIL 5 MG TABLET. PO SCH (08:01)
[2020-06-06] MEDS: NICOTINE 21MG PATCH. TD SCH (08:02)
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
[2020-06-06 16:28] VITALS: BP 113/77
--- NOTE | 2020-06-06 20:50 | PN ---
DATE: 06/06/2020 SUBJECTIVE: The patient was seen today, met with the staff, chart reviewed. Staff reports no major behavior problems, mostly he sleeps naked. No major complaints. OBSERVATION: VITAL SIGNS: Temperature 97.9, blood pressure 113/79, pulse 96, respirations 22, O2 sat 98%. GENERAL: Slept about 5 hours last night. The patient's appetite improved. CURRENT MEDICATIONS: He is on Invega Sustenna 234 mg monthly IM, Depo-Provera IM, 2 weeks, 150 mg IM, Trileptal 600 mg daily, Wellbutrin-SR 200 mg daily, Risperdal 0.5 mg 3 times a day and gabapentin 100 mg t.i.d. The patient is not having any side effects. LABORATORY DATA: Reviewed. ASSESSMENT: 1. Schizoaffective disorder, bipolar type, mixed, with psychotic features. 2. Anxiety disorder, unspecified. 3. Impulse control disorder, unspecified. PLAN: Continue with the treatment. LENGTH OF STAY: 7 days. STEVIE NESS MD DR: FILIPE/hemal JOB#: [id number] / [id number]
[2020-06-07] MEDS: LEVOTHYROXINE 100 MCG TABLET PO SCH (05:36)
[2020-06-07 06:13] VITALS: BP 110/79
[2020-06-07 07:11] LABS: BASO % 0 % (0-3); EOS # 0.1 x10^3/uL (0.0-0.7); EOS % 1 % (0-3); HEMATOCRIT 36.8 % (39.0-53.0); HEMOGLOBIN 12.3 g/dL (13.0-17.5); LYMPH # 1.2 x10^3/uL (1.0-4.8); LYMPH % 13 % (24-48); MEAN CORPUSCULAR HEMOGLOBIN 32 pg (25-35); MEAN CORPUSCULAR HGB CONC 34 g/dL (31-37); MEAN CORPUSCULAR VOLUME 94 fL (79-100); MONO # 0.7 x10^3/uL (0.0-1.1); MONO % 8 % (0-9); NEUT # 6.7 x10^3uL (1.8-7.7); NEUT % 78 % (31-73); PLATELET COUNT 223 x10^3/uL (140-400); RED CELL DISTRIBUTION WIDTH 13.6 % (11.5-14.5); WHITE BLOOD COUNT 8.6 x10^3/uL (4.0-11.0)
[2020-06-07 07:28] LABS: ALBUMIN 3.4 g/dL (3.4-5.0); CALCIUM 9.3 mg/dL (8.5-10.1); CREATININE 1.4 mg/dL (0.7-1.3); GFR 51.9; POTASSIUM 4.5 mmol/L (3.5-5.1); TOTAL BILIRUBIN 0.3 mg/dL (0.2-1.0); TOTAL PROTEIN 6.8 g/dL (6.4-8.2)
[2020-06-07] MEDS: NICOTINE 21MG PATCH. TD SCH (08:13)
[2020-06-07] MEDS: DEMECLOCYCLINE HCL 150 MG TABLET. PO SCH ×2 (08:14→20:30)
[2020-06-07] MEDS: SODIUM CHLORIDE 1 GM TABLET PO SCH ×2 (08:14→20:30)
[2020-06-07] MEDS: CHOLECALCIFEROL (VITAMIN D3) 1,000 UNIT TABLET PO SCH (08:14)
[2020-06-07] MEDS: buPROPion SR 100 MG TABLET.SA. PO SCH (08:14)
[2020-06-07] MEDS: PANTOPRAZOLE 40 MG TABLET. PO SCH (08:14)
[2020-06-07] MEDS: POTASSIUM CHLORIDE 10 MEQ TABLET.ER. PO SCH (08:15)
[2020-06-07] MEDS: DOCUSATE SODIUM 100 MG CAPSULE PO SCH ×2 (08:15→20:30)
[2020-06-07] MEDS: SPIRONOLACTONE 25 MG TABLET PO SCH (08:15)
[2020-06-07] MEDS: MULTIVITAMIN with MINERAL TABLET. PO SCH (08:15)
[2020-06-07] MEDS: ASPIRIN ENTERIC COATED 81 MG TABLET.DR. PO SCH (08:15)
[2020-06-07] MEDS: TAMSULOSIN 0.4 MG CAP.ER.24H. PO SCH (08:15)
[2020-06-07] MEDS: GABAPENTIN 100 MG CAPSULE. PO SCH ×3 (08:16→20:32)
[2020-06-07] MEDS: FUROSEMIDE 40 MG TABLET PO SCH (08:16)
[2020-06-07] MEDS: LISINOPRIL 5 MG TABLET. PO SCH (08:16)
[2020-06-07] MEDS: risperiDONE 0.5 MG TABLET. PO SCH ×3 (08:16→20:30)
[2020-06-07] MEDS: LISINOPRIL 20 MG TABLET PO SCH (08:16)
[2020-06-07 16:10] VITALS: BP 136/91
--- NOTE | 2020-06-07 22:26 | PN ---
DATE: 06/07/2020 SUBJECTIVE: The patient was seen today, met with the staff, chart reviewed. Staff reports mostly withdrawn, urinating in bed, not able to control his bladder. Otherwise, she has not presented with any major behavior problems, pleasant. OBSERVATION: VITAL SIGNS: Temperature 98.3, blood pressure 110/79, pulse 93, respirations 18, O2 sat 96. GENERAL: Slept about 7 hours last night. CURRENT MEDICATIONS: The patient's current medications include Invega Sustenna 234 mg monthly IM, Depo-Provera IM 2 weeks 150 mg, Trileptal 600 mg daily, Wellbutrin-SR 200 mg daily, Risperdal 0.5 mg 3 times a day and gabapentin 100 mg t.i.d. He is not having any major side effects. LABORATORY DATA: The patient's lab reviewed. ASSESSMENT: 1. Schizoaffective disorder, bipolar type, mixed, with psychotic features. 2. Anxiety disorder, unspecified. 3. Impulse control disorder, unspecified. PLAN: Continue with the treatment. LENGTH OF STAY: 5-[address] STEVIE NESS MD DR: FILIPE/hemal JOB#: [id number] / [id number]
[2020-06-08] MEDS: LEVOTHYROXINE 100 MCG TABLET PO SCH (05:10)
[2020-06-08 06:32] VITALS: BP 108/74
[2020-06-08] MEDS: CHOLECALCIFEROL (VITAMIN D3) 1,000 UNIT TABLET PO SCH (09:12)
[2020-06-08] MEDS: buPROPion SR 100 MG TABLET.SA. PO SCH (09:12)
[2020-06-08] MEDS: ASPIRIN ENTERIC COATED 81 MG TABLET.DR. PO SCH (09:12)
[2020-06-08] MEDS: TAMSULOSIN 0.4 MG CAP.ER.24H. PO SCH (09:12)
[2020-06-08] MEDS: MULTIVITAMIN with MINERAL TABLET. PO SCH (09:12)
[2020-06-08] MEDS: SODIUM CHLORIDE 1 GM TABLET PO SCH ×2 (09:13→20:28)
[2020-06-08] MEDS: GABAPENTIN 100 MG CAPSULE. PO SCH ×3 (09:14→20:27)
[2020-06-08] MEDS: FUROSEMIDE 40 MG TABLET PO SCH (09:14)
[2020-06-08] MEDS: DOCUSATE SODIUM 100 MG CAPSULE PO SCH ×2 (09:14→20:27)
[2020-06-08] MEDS: POTASSIUM CHLORIDE 10 MEQ TABLET.ER. PO SCH (09:15)
[2020-06-08] MEDS: PANTOPRAZOLE 40 MG TABLET. PO SCH (09:15)
[2020-06-08] MEDS: DEMECLOCYCLINE HCL 150 MG TABLET. PO SCH ×2 (09:15→20:28)
[2020-06-08] MEDS: SPIRONOLACTONE 25 MG TABLET PO SCH (09:16)
[2020-06-08] MEDS: LISINOPRIL 20 MG TABLET PO SCH (09:16)
[2020-06-08] MEDS: LISINOPRIL 5 MG TABLET. PO SCH (09:17)
[2020-06-08] MEDS: NICOTINE 21MG PATCH. TD SCH (09:18)
[2020-06-08] MEDS: risperiDONE 0.5 MG TABLET. PO SCH ×3 (09:18→20:27)
[2020-06-08 15:33] VITALS: BP 105/72
[2020-06-09] MEDS: LEVOTHYROXINE 100 MCG TABLET PO SCH (05:33)
[2020-06-09 06:26] VITALS: BP 117/81
[2020-06-09] MEDS: MULTIVITAMIN with MINERAL TABLET. PO SCH (07:47)
[2020-06-09] MEDS: CHOLECALCIFEROL (VITAMIN D3) 1,000 UNIT TABLET PO SCH (07:47)
[2020-06-09] MEDS: GABAPENTIN 100 MG CAPSULE. PO SCH ×3 (07:47→20:22)
[2020-06-09] MEDS: ASPIRIN ENTERIC COATED 81 MG TABLET.DR. PO SCH (07:48)
[2020-06-09] MEDS: buPROPion SR 100 MG TABLET.SA. PO SCH (07:48)
[2020-06-09] MEDS: SODIUM CHLORIDE 1 GM TABLET PO SCH ×2 (07:48→20:23)
[2020-06-09] MEDS: risperiDONE 0.5 MG TABLET. PO SCH ×3 (07:48→20:20)
[2020-06-09] MEDS: PANTOPRAZOLE 40 MG TABLET. PO SCH (07:48)
[2020-06-09] MEDS: NICOTINE 21MG PATCH. TD SCH (07:48)
[2020-06-09] MEDS: FUROSEMIDE 40 MG TABLET PO SCH (07:49)
[2020-06-09] MEDS: LISINOPRIL 20 MG TABLET PO SCH (07:49)
[2020-06-09] MEDS: TAMSULOSIN 0.4 MG CAP.ER.24H. PO SCH (07:49)
[2020-06-09] MEDS: POTASSIUM CHLORIDE 10 MEQ TABLET.ER. PO SCH (07:49)
[2020-06-09] MEDS: DOCUSATE SODIUM 100 MG CAPSULE PO SCH ×2 (07:49→20:20)
[2020-06-09] MEDS: SPIRONOLACTONE 25 MG TABLET PO SCH (07:50)
[2020-06-09] MEDS: DEMECLOCYCLINE HCL 150 MG TABLET. PO SCH ×2 (07:50→20:22)
[2020-06-09] MEDS: LISINOPRIL 5 MG TABLET. PO SCH (07:50)
[2020-06-09 15:47] VITALS: BP 115/81
--- NOTE | 2020-06-09 21:56 | PDOC ---
Exam Note: Rafael Note: Laye entry for 06/08/2020. Please also refer to the separate dictated note~for this date of service dictated separately.~Patient seen individually. Discussed the patient with Nursing staff reviewed the chart.~Reviewed interim history and current functioning. Reviewed vital signs,~Labs/ Radiology~and current medic ations noted below. Continue current treatment with the changes noted in the dictated addendum note Assessment: Vital Signs/I&O: Vital Signs Date Time Temp Pulse Resp B/P (MAP) Pulse Ox O2 Delivery O2 Flow Rate FiO2 06/09/20 15:47 98.0 94 20 115/81 (92) 96 06/09/20 06:26 Room Air I & O 0 06/08/20 06/08/20 06/09/20 15:00 23:00 07:00 Intake Total 4040 ml 360 ml Balance 4040 ml 360 ml Labs: Laboratory Tests Test 06/09/20 08:02 Glucose (Fingerstick) 112 mg/dL (70-99) H Current Medications: Meds: Laboratory Tests Test 06/09/20 08:02 Glucose (Fingerstick) 112 mg/dL Current Medications Medications (Trade) Dose Ordered Sig/Rober Route PRN Reason Start Time Stop Time Status Last Admin Dose Admin Acetaminophen (Tylenol) 650 mg PRN Q6HRS PRN PO MILD PAIN / TEMP > 100.3'F 05/30/20 15:45 Multi-Ingredient Ointment (Analgesic [place]) 1 muriel PRN QID PRN TP MUSCLE PAIN 05/30/20 15:45 Al Hydroxide/Mg Hydroxide (Mylanta Plus Xs) 15 ml PRN AFTMEALHC PRN PO DYSPEPSIA 05/30/20 15:45 Magnesium Hydroxide (Milk Of Magnesia) 2,400 mg PRN QHS PRN PO CONSTIPATION 05/30/20 15:45 Nicotine (Nicoderm Cq 21mg Patch) 1 patch DAILY TD 05/30/20 16:30 06/09/20 07:48 Aspirin (Aspirin Enteric Coated) 81 mg DAILY PO 05/31/20 09:00 06/09/20 07:48 Bupropion HCl (Wellbutrin Sr) 200 mg DAILY PO 05/31/20 09:00 06/09/20 07:48 Docusate Sodium (Colace) 100 mg BID PO 05/30/20 21:00 06/09/20 20:20 Furosemide (Lasix) 40 mg DAILY PO 05/31/20 09:00 06/09/20 07:49 Gabapentin (Neurontin) 100 mg TID PO 05/30/20 21:00 06/09/20 20:22 Levothyroxine Sodium (Synthroid) 100 mcg DAILY06 PO 05/31/20 06:00 06/09/20 05:33 Lisinopril (Prinivil) 5 mg DAILY PO 05/31/20 09:00 06/09/20 07:50 Lisinopril (Prinivil) 20 mg DAILY PO 05/31/20 09:00 06/09/20 07:49 Metformin HCl (Glucophage) 500 mg BIDWMEALS PO 05/30/20 17:00 05/30/20 17:56 DC Neomycin Sulfate (Neomycin Sulfate) 4,000 mg DAILY PO 05/31/20 09:00 05/31/20 13:21 DC Paliperidone Palmitate (Invega Sustenna) 234 mg QMONTH IM 06/11/20 09:00 Risperidone (RisperDAL) 0.5 mg TID PO 05/30/20 21:00 06/09/20 20:20 Spironolactone (Aldactone) 25 mg DAILY PO 05/31/20 09:00 06/09/20 07:50 Tamsulosin HCl (Flomax) 0.4 mg DAILY PO 05/31/20 09:00 06/09/20 07:49 Vitamin D (Vitamin D3) 2,000 unit DAILY PO 05/31/20 09:00 06/09/20 07:47 Non-Formulary Medication (Medroxyprogesterone Acetate (Depo-Provera)) 1 ml Q2WKS IM 06/02/20 09:00 06/02/20 10:08 DC Multivitamins/ Calcium (Thera-M Plus) 1 tab DAILY PO 05/31/20 09:00 06/09/20 07:47 Pantoprazole Sodium (Protonix) 40 mg DAILYAC PO 05/31/20 07:30 06/09/20 07:48 Oxcarbazepine (Trileptal) 600 mg DAILY PO 05/31/20 09:00 06/09/20 07:49 Potassium Chloride (Klor-Con) 10 meq DAILYWBKFT PO 05/31/20 08:00 06/09/20 07:49 Demeclocycline HCl (Declomycin) 300 mg BID PO 05/30/20 21:00 06/09/20 20:22 Sodium Chloride (Sodium Chloride Tab) 2 gm BID PO 05/30/20 21:00 06/09/20 20:23 Medroxyprogesterone Acetate (Depo-Provera Im) 150 mg Q2WKS IM 06/02/20 10:15 06/02/20 10:15 I have reviewed the current psychotropics carefully including drug interactions. Risk benefit ratio favors no change other than as noted in my dictated progress note. Diagnosis: Problems: (1) Anxiety disorder (2) Impulse control disorder (3) Schizoaffective disorder, bipolar type (4) Schizophrenia, paranoid, chronic with acute exacerbation LEONARD ASHFORD MD Jun 09, 2020 21:56
[2020-06-10] MEDS: LEVOTHYROXINE 100 MCG TABLET PO SCH (05:33)
[2020-06-10 06:09] VITALS: BP 127/86
--- NOTE | 2020-06-10 07:09 | PDOC ---
Exam Note: Rafael Note: This note is a late entry for 06/08/2020 covers elements not covered in my initial note. Subjective: Dr. Campos had covered for me from 25 May till May, and I assumed care of the patients from 08 June. I have reviewed information and interim progress notes at some length with Dr. Campos. The patient was seen individually in the evening of 06/08/2020 with Rony PERSAUD, discussed and reviewed the chart. The patient just slept 7-1/4 hours previous night. Overall he has been compliant. He remains quite withdrawn to his room. He is not needed any p.r.n.s. I met with him at length in his room. He readily recognized me from his prior hospitalizations. He has had no inappropriate behaviors that prompted this admission that included yelling or cursing staff, being verbally aggressive or physically attacking peers, inappropriate behaviors with nursing staff have not been noted, neither has been urinating on the floor. 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 Review of Systems: Positive for impaired ambulation in wheelchair. No CV, , pulmonary, eye system symptoms on review. Mental Status Exam: The patient is reasonably oriented. Speech has moderate latency. Often response is monosyllabic. Abstraction is fair. Computation impaired. Language function intact. Mood and affect withdrawn. No suicidal or homicidal ideation. Laboratory Data: Reviewed. Impression: Schizoaffective disorder bipolar type, mixed with psychotic features, in partial remission. Anxiety disorder unspecified. Impulse control disorder unspecified. Plan: I have carefully reviewed the current psychotropics and drug interactions. We will continue Wellbutrin, gabapentin, Invega Sustenna, Depo- Provera, Trileptal, and Risperdal at current dosage. Adjust further as clinically indicated. Assessment: Vital Signs/I&O: Vital Signs Date Time Temp Pulse Resp B/P (MAP) Pulse Ox O2 Delivery O2 Flow Rate FiO2 06/10/20 06:09 98.1 83 20 127/86 (100) 97 Room Air I & O 06/09/20 06/09/20 06/10/20 15:00 23:00 07:00 Intake Total 580 ml 445 ml Balance 580 ml 445 ml Labs: Laboratory Tests Test 06/09/20 08:02 Glucose (Fingerstick) 112 mg/dL (70-99) H Current Medications: Meds: Laboratory Tests Test 06/09/20 08:02 Glucose (Fingerstick) 112 mg/dL Current Medications Medications (Trade) Dose Ordered Sig/Rober Route PRN Reason Start Time Stop Time Status Last Admin Dose Admin Acetaminophen (Tylenol) 650 mg PRN Q6HRS PRN PO MILD PAIN / TEMP > 100.3'F 05/30/20 15:45 Multi-Ingredient Ointment (Analgesic [place]) 1 muriel PRN QID PRN TP MUSCLE PAIN 05/30/20 15:45 Al Hydroxide/Mg Hydroxide (Mylanta Plus Xs) 15 ml PRN AFTMEALHC PRN PO DYSPEPSIA 05/30/20 15:45 Magnesium Hydroxide (Milk Of Magnesia) 2,400 mg PRN QHS PRN PO CONSTIPATION 05/30/20 15:45 Nicotine (Nicoderm Cq 21mg Patch) 1 patch DAILY TD 05/30/20 16:30 06/09/20 07:48 Aspirin (Aspirin Enteric Coated) 81 mg DAILY PO 05/31/20 09:00 06/09/20 07:48 Bupropion HCl (Wellbutrin Sr) 200 mg DAILY PO 05/31/20 09:00 06/09/20 07:48 Docusate Sodium (Colace) 100 mg BID PO 05/30/20 21:00 06/09/20 20:20 Furosemide (Lasix) 40 mg DAILY PO 05/31/20 09:00 06/09/20 07:49 Gabapentin (Neurontin) 100 mg TID PO 05/30/20 21:00 06/09/20 20:22 Levothyroxine Sodium (Synthroid) 100 mcg DAILY06 PO 05/31/20 06:00 06/10/20 05:33 Lisinopril (Prinivil) 5 mg DAILY PO 05/31/20 09:00 06/09/20 07:50 Lisinopril (Prinivil) 20 mg DAILY PO 05/31/20 09:00 06/09/20 07:49 Metformin HCl (Glucophage) 500 mg BIDWMEALS PO 05/30/20 17:00 05/30/20 17:56 DC Neomycin Sulfate (Neomycin Sulfate) 4,000 mg DAILY PO 05/31/20 09:00 05/31/20 13:21 DC Paliperidone Palmitate (Invega Sustenna) 234 mg QMONTH IM 06/11/20 09:00 Risperidone (RisperDAL) 0.5 mg TID PO 05/30/20 21:00 06/09/20 20:20 Spironolactone (Aldactone) 25 mg DAILY PO 05/31/20 09:00 06/09/20 07:50 Tamsulosin HCl (Flomax) 0.4 mg DAILY PO 05/31/20 09:00 06/09/20 07:49 Vitamin D (Vitamin D3) 2,000 unit DAILY PO 05/31/20 09:00 06/09/20 07:47 Non-Formulary Medication (Medroxyprogesterone Acetate (Depo-Provera)) 1 ml Q2WKS IM 06/02/20 09:00 06/02/20 10:08 DC Multivitamins/ Calcium (Thera-M Plus) 1 tab DAILY PO 05/31/20 09:00 06/09/20 07:47 Pantoprazole Sodium (Protonix) 40 mg DAILYAC PO 05/31/20 07:30 06/09/20 07:48 Oxcarbazepine (Trileptal) 600 mg DAILY PO 05/31/20 09:00 06/09/20 07:49 Potassium Chloride (Klor-Con) 10 meq DAILYWBKFT PO 05/31/20 08:00 06/09/20 07:49 Demeclocycline HCl (Declomycin) 300 mg BID PO 05/30/20 21:00 06/09/20 20:22 Sodium Chloride (Sodium Chloride Tab) 2 gm BID PO 05/30/20 21:00 06/09/20 20:23 Medroxyprogesterone Acetate (Depo-Provera Im) 150 mg Q2WKS IM 06/02/20 10:15 06/02/20 10:15 I have reviewed the current psychotropics carefully including drug interactions. Risk benefit ratio favors no change other than as noted in my dictated progress note. Diagnosis: Problems: (1) Bipolar disorder, current episode mixed, severe, with psychotic features (2) Anxiety disorder (3) Impulse control disorder (4) Schizoaffective disorder, bipolar type LEONARD ASHFORD MD Jun 10, 2020 07:09
--- NOTE | 2020-06-10 07:57 | PDOC ---
Exam Note: Rafael Note: This note is a late entry for 06/09/2020 covers elements not covered in my initial note. Subjective: The patient was seen individually in the evening of 06/09/2020 with Eddie PERSAUD, discussed and reviewed the chart. The patient just slept 5-1/4 hours previous night. I met with him in his room. We do not have valproic acid level. We will check one in the morning. He is somewhat withdrawn, but no agitation or aggression. He is somewhat delusional as I met with him. Review of Systems: Ambulation impaired. He is lying in his room. No CV, , pulmonary, eye system symptoms on review. Mental Status Exam: The patient is reasonably oriented. Speech has moderate latency. Often response is monosyllabic. Abstraction is fair. Computation impaired. Language function intact. Mood and affect withdrawn. Laboratory Data: Reviewed. Impression: Schizoaffective disorder bipolar type, mixed with psychotic features, in partial remission. Anxiety disorder unspecified. Impulse control disorder unspecified. Plan: We will continue current psychotropics. We may need to increase Trileptal as a mood stabilizer. Assessment: Vital Signs/I&O: Vital Signs Date Time Temp Pulse Resp B/P (MAP) Pulse Ox O2 Delivery O2 Flow Rate FiO2 06/10/20 06:09 98.1 83 20 127/86 (100) 97 Room Air I & O 06/09/20 06/09/20 06/10/20 15:00 23:00 07:00 Intake Total 580 ml 445 ml Balance 580 ml 445 ml Labs: Laboratory Tests Test 06/09/20 08:02 06/10/20 07:31 Glucose (Fingerstick) 112 mg/dL (70-99) H 98 mg/dL (70-99) Current Medications: Meds: Laboratory Tests Test 06/09/20 08:02 06/10/20 07:31 Glucose (Fingerstick) 112 mg/dL 98 mg/dL Current Medications Medications (Trade) Dose Ordered Sig/Rober Route PRN Reason Start Time Stop Time Status Last Admin Dose Admin Acetaminophen (Tylenol) 650 mg PRN Q6HRS PRN PO MILD PAIN / TEMP > 100.3'F 05/30/20 15:45 Multi-Ingredient Ointment (Analgesic [place]) 1 muriel PRN QID PRN TP MUSCLE PAIN 05/30/20 15:45 Al Hydroxide/Mg Hydroxide (Mylanta Plus Xs) 15 ml PRN AFTMEALHC PRN PO DYSPEPSIA 05/30/20 15:45 Magnesium Hydroxide (Milk Of Magnesia) 2,400 mg PRN QHS PRN PO CONSTIPATION 05/30/20 15:45 Nicotine (Nicoderm Cq 21mg Patch) 1 patch DAILY TD 05/30/20 16:30 06/09/20 07:48 Aspirin (Aspirin Enteric Coated) 81 mg DAILY PO 05/31/20 09:00 06/09/20 07:48 Bupropion HCl (Wellbutrin Sr) 200 mg DAILY PO 05/31/20 09:00 06/09/20 07:48 Docusate Sodium (Colace) 100 mg BID PO 05/30/20 21:00 06/09/20 20:20 Furosemide (Lasix) 40 mg DAILY PO 05/31/20 09:00 06/09/20 07:49 Gabapentin (Neurontin) 100 mg TID PO 05/30/20 21:00 06/09/20 20:22 Levothyroxine Sodium (Synthroid) 100 mcg DAILY06 PO 05/31/20 06:00 06/10/20 05:33 Lisinopril (Prinivil) 5 mg DAILY PO 05/31/20 09:00 06/09/20 07:50 Lisinopril (Prinivil) 20 mg DAILY PO 05/31/20 09:00 06/09/20 07:49 Metformin HCl (Glucophage) 500 mg BIDWMEALS PO 05/30/20 17:00 05/30/20 17:56 DC Neomycin Sulfate (Neomycin Sulfate) 4,000 mg DAILY PO 05/31/20 09:00 05/31/20 13:21 DC Paliperidone Palmitate (Invega Sustenna) 234 mg QMONTH IM 06/11/20 09:00 Risperidone (RisperDAL) 0.5 mg TID PO 05/30/20 21:00 06/09/20 20:20 Spironolactone (Aldactone) 25 mg DAILY PO 05/31/20 09:00 06/09/20 07:50 Tamsulosin HCl (Flomax) 0.4 mg DAILY PO 05/31/20 09:00 06/09/20 07:49 Vitamin D (Vitamin D3) 2,000 unit DAILY PO 05/31/20 09:00 06/09/20 07:47 Non-Formulary Medication (Medroxyprogesterone Acetate (Depo-Provera)) 1 ml Q2WKS IM 06/02/20 09:00 06/02/20 10:08 DC Multivitamins/ Calcium (Thera-M Plus) 1 tab DAILY PO 05/31/20 09:00 06/09/20 07:47 Pantoprazole Sodium (Protonix) 40 mg DAILYAC PO 05/31/20 07:30 06/09/20 07:48 Oxcarbazepine (Trileptal) 600 mg DAILY PO 05/31/20 09:00 06/09/20 07:49 Potassium Chloride (Klor-Con) 10 meq DAILYWBKFT PO 05/31/20 08:00 06/09/20 07:49 Demeclocycline HCl (Declomycin) 300 mg BID PO 05/30/20 21:00 06/09/20 20:22 Sodium Chloride (Sodium Chloride Tab) 2 gm BID PO 05/30/20 21:00 06/09/20 20:23 Medroxyprogesterone Acetate (Depo-Provera Im) 150 mg Q2WKS IM 06/02/20 10:15 06/02/20 10:15 I have reviewed the current psychotropics carefully including drug interactions. Risk benefit ratio favors no change other than as noted in my dictated progress note. Diagnosis: Problems: (1) Schizoaffective disorder, chronic condition with acute exacerbation (2) Schizoaffective disorder, bipolar type (3) Impulse control disorder (4) Anxiety disorder (5) Bipolar disorder, current episode mixed, severe, with psychotic features LEONARD ASHFORD MD Jun 10, 2020 07:57
[2020-06-10 08:05] LABS: VAL ACID < 3 mcg/mL (50-100)
[2020-06-10] MEDS: ASPIRIN ENTERIC COATED 81 MG TABLET.DR. PO SCH (08:56)
[2020-06-10] MEDS: FUROSEMIDE 40 MG TABLET PO SCH (08:56)
[2020-06-10] MEDS: PANTOPRAZOLE 40 MG TABLET. PO SCH (08:57)
[2020-06-10] MEDS: POTASSIUM CHLORIDE 10 MEQ TABLET.ER. PO SCH (08:57)
[2020-06-10] MEDS: LISINOPRIL 5 MG TABLET. PO SCH (08:57)
[2020-06-10] MEDS: SODIUM CHLORIDE 1 GM TABLET PO SCH ×2 (08:57→20:54)
[2020-06-10] MEDS: TAMSULOSIN 0.4 MG CAP.ER.24H. PO SCH (08:57)
[2020-06-10] MEDS: GABAPENTIN 100 MG CAPSULE. PO SCH ×3 (08:57→20:54)
[2020-06-10] MEDS: LISINOPRIL 20 MG TABLET PO SCH (08:57)
[2020-06-10] MEDS: MULTIVITAMIN with MINERAL TABLET. PO SCH (08:57)
[2020-06-10] MEDS: risperiDONE 0.5 MG TABLET. PO SCH ×3 (08:57→20:54)
[2020-06-10] MEDS: SPIRONOLACTONE 25 MG TABLET PO SCH (08:58)
[2020-06-10] MEDS: CHOLECALCIFEROL (VITAMIN D3) 1,000 UNIT TABLET PO SCH (08:58)
[2020-06-10] MEDS: NICOTINE 21MG PATCH. TD SCH (08:58)
[2020-06-10] MEDS: DOCUSATE SODIUM 100 MG CAPSULE PO SCH ×2 (08:58→20:54)
[2020-06-10] MEDS: buPROPion SR 100 MG TABLET.SA. PO SCH (08:58)
[2020-06-10] MEDS: DEMECLOCYCLINE HCL 150 MG TABLET. PO SCH ×2 (08:59→20:54)
[2020-06-10 16:04] VITALS: BP 98/68
--- NOTE | 2020-06-10 22:10 | PDOC ---
Exam Note: Rafael Note: Please also refer to the separate dictated note~for this date of service dictated separately.~Patient seen individually. Discussed the patient with Nursing staff reviewed the chart.~Reviewed interim history and current functioning. Reviewed vital signs,~Labs/ Radiology~and current medications noted below. Continue current treatment with the changes noted in the dictated addendum note Assessment: Vital Signs/I&O: Vital Signs Date Time Temp Pulse Resp B/P (MAP) Pulse Ox O2 Delivery O2 Flow Rate FiO2 06/10/20 16:04 97.1 61 18 98/68 (78) 99 06/10/20 06:09 Room Air I & O 06/09/20 06/09/20 06/10/20 15:00 23:00 07:00 Intake Total 580 ml 445 ml Balance 580 ml 445 ml Labs: Laboratory Tests Test 06/10/20 06:38 06/10/20 07:31 Valproic Acid Level < 3 mcg/mL (50-100) L Valproic Acid Last Dose Date 06/09/20 Valproic Acid Last Dose Time 2100 Glucose (Fingerstick) 98 mg/dL (70-99) Current Medications: Meds: Laboratory Tests Test 06/10/20 06:38 06/10/20 07:31 Valproic Acid (Depakene) Level < 3 mcg/mL Valproic Acid Last Dose Date 06/09/20 Valproic Acid Last Dose Time 2100 Glucose (Fingerstick) 98 mg/dL Current Medications Medications (Trade) Dose Ordered Sig/Rober Route PRN Reason Start Time Stop Time Status Last Admin Dose Admin Acetaminophen (Tylenol) 650 mg PRN Q6HRS PRN PO MILD PAIN / TEMP > 100.3'F 05/30/20 15:45 Multi-Ingredient Ointment (Analgesic [place]) 1 muriel PRN QID PRN TP MUSCLE PAIN 05/30/20 15:45 Al Hydroxide/Mg Hydroxide (Mylanta Plus Xs) 15 ml PRN AFTMEALHC PRN PO DYSPEPSIA 05/30/20 15:45 Magnesium Hydroxide (Milk Of Magnesia) 2,400 mg PRN QHS PRN PO CONSTIPATION 05/30/20 15:45 Nicotine (Nicoderm Cq 21mg Patch) 1 patch DAILY TD 05/30/20 16:30 06/10/20 08:58 Aspirin (Aspirin Enteric Coated) 81 mg DAILY PO 05/31/20 09:00 06/10/20 08:56 Bupropion HCl (Wellbutrin Sr) 200 mg DAILY PO 05/31/20 09:00 06/10/20 08:58 Docusate Sodium (Colace) 100 mg BID PO 05/30/20 21:00 06/10/20 20:54 Furosemide (Lasix) 40 mg DAILY PO 05/31/20 09:00 06/10/20 08:56 Gabapentin (Neurontin) 100 mg TID PO 05/30/20 21:00 06/10/20 20:54 Levothyroxine Sodium (Synthroid) 100 mcg DAILY06 PO 05/31/20 06:00 06/10/20 05:33 Lisinopril (Prinivil) 5 mg DAILY PO 05/31/20 09:00 06/10/20 08:57 Lisinopril (Prinivil) 20 mg DAILY PO 05/31/20 09:00 06/10/20 08:57 Metformin HCl (Glucophage) 500 mg BIDWMEALS PO 05/30/20 17:00 05/30/20 17:56 DC Neomycin Sulfate (Neomycin Sulfate) 4,000 mg DAILY PO 05/31/20 09:00 05/31/20 13:21 DC Paliperidone Palmitate (Invega Sustenna) 234 mg QMONTH IM 06/11/20 09:00 Risperidone (RisperDAL) 0.5 mg TID PO 05/30/20 21:00 06/10/20 20:54 Spironolactone (Aldactone) 25 mg DAILY PO 05/31/20 09:00 06/10/20 08:58 Tamsulosin HCl (Flomax) 0.4 mg DAILY PO 05/31/20 09:00 06/10/20 08:57 Vitamin D (Vitamin D3) 2,000 unit DAILY PO 05/31/20 09:00 06/10/20 08:58 Non-Formulary Medication (Medroxyprogesterone Acetate (Depo-Provera)) 1 ml Q2WKS IM 06/02/20 09:00 06/02/20 10:08 DC Multivitamins/ Calcium (Thera-M Plus) 1 tab DAILY PO 05/31/20 09:00 06/10/20 08:57 Pantoprazole Sodium (Protonix) 40 mg DAILYAC PO 05/31/20 07:30 06/10/20 08:57 Oxcarbazepine (Trileptal) 600 mg DAILY PO 05/31/20 09:00 06/10/20 08:58 Potassium Chloride (Klor-Con) 10 meq DAILYWBKFT PO 05/31/20 08:00 06/10/20 08:57 Demeclocycline HCl (Declomycin) 300 mg BID PO 05/30/20 21:00 06/10/20 20:54 Sodium Chloride (Sodium Chloride Tab) 2 gm BID PO 05/30/20 21:00 06/10/20 20:54 Medroxyprogesterone Acetate (Depo-Provera Im) 150 mg Q2WKS IM 06/02/20 10:15 06/02/20 10:15 I have reviewed the current psychotropics carefully including drug interactions. Risk benefit ratio favors no change other than as noted in my dictated progress note. Diagnosis: Problems: (1) Bipolar disorder, current episode mixed, severe, with psychotic features (2) Anxiety disorder (3) Impulse control disorder (4) Schizoaffective disorder, bipolar type (5) Schizoaffective disorder, chronic condition with acute exacerbation LEONARD ASHFORD MD Jun 10, 2020 22:10
[2020-06-11] MEDS: LEVOTHYROXINE 100 MCG TABLET PO SCH (05:34)
[2020-06-11 06:00] VITALS: BP 118/88
[2020-06-11] MEDS: NICOTINE 21MG PATCH. TD SCH (07:32)
[2020-06-11] MEDS: LISINOPRIL 5 MG TABLET. PO SCH (07:33)
[2020-06-11] MEDS: POTASSIUM CHLORIDE 10 MEQ TABLET.ER. PO SCH (07:33)
[2020-06-11] MEDS: CHOLECALCIFEROL (VITAMIN D3) 1,000 UNIT TABLET PO SCH (07:33)
[2020-06-11] MEDS: buPROPion SR 100 MG TABLET.SA. PO SCH (07:33)
[2020-06-11] MEDS: TAMSULOSIN 0.4 MG CAP.ER.24H. PO SCH (07:33)
[2020-06-11] MEDS: SPIRONOLACTONE 25 MG TABLET PO SCH (07:34)
[2020-06-11] MEDS: MULTIVITAMIN with MINERAL TABLET. PO SCH (07:34)
[2020-06-11] MEDS: risperiDONE 0.5 MG TABLET. PO SCH ×3 (07:34→21:21)
[2020-06-11] MEDS: FUROSEMIDE 40 MG TABLET PO SCH (07:34)
[2020-06-11] MEDS: PANTOPRAZOLE 40 MG TABLET. PO SCH (07:35)
[2020-06-11] MEDS: ASPIRIN ENTERIC COATED 81 MG TABLET.DR. PO SCH (07:35)
[2020-06-11] MEDS: LISINOPRIL 20 MG TABLET PO SCH (07:35)
[2020-06-11] MEDS: DOCUSATE SODIUM 100 MG CAPSULE PO SCH ×2 (07:35→21:21)
[2020-06-11] MEDS: SODIUM CHLORIDE 1 GM TABLET PO SCH ×2 (07:36→21:22)
[2020-06-11] MEDS: DEMECLOCYCLINE HCL 150 MG TABLET. PO SCH ×2 (07:36→21:23)
[2020-06-11] MEDS: GABAPENTIN 100 MG CAPSULE. PO SCH ×3 (07:37→21:23)
--- NOTE | 2020-06-11 08:26 | PDOC ---
Exam Note: Rafael Note: This note is a late entry for 06/10/2020 covers elements not covered in my initial note. Subjective: The patient was seen individually in the evening of 06/10/2020 with Rossy PERSAUD, discussed and reviewed the chart. The patient just slept 6-1/4 hours previous night. I met with him in his room in the evening. He has had no behaviors. No cursing or aggression or urinating on the floor all of which prompted this hospitalization. Review of Systems: Positive for some tiredness. No CV, , pulmonary, eye system symptoms on review. Mental Status Exam: The patient is reasonably oriented. He is quite withdrawn, lying in bed initially with bed-sheet covering his face then he removed it to interact with me. No paranoia, suicidal or homicidal ideation. Speech has moderate latency. Often response is monosyllabic. Abstraction is fair. Computation impaired. Attention span is short. Language function intact. Mood and affect withdrawn. Laboratory Data: Reviewed. Impression: Schizoaffective disorder bipolar type, mixed with psychotic features, in partial remission. Anxiety disorder unspecified. Impulse control disorder unspecified. Plan: We will continue current psychotropics. We may consider increasing Trileptal. Valproic acid level was inadvertently checked but he is not on the Depakote. Maintain Invega Sustenna, Medroxyprogesterone, Risperdal and the Wellbutrin at current dosage. Assessment: Vital Signs/I&O: Vital Signs Date Time Temp Pulse Resp B/P (MAP) Pulse Ox O2 Delivery O2 Flow Rate FiO2 06/11/20 07:35 76 118/88 06/11/20 06:00 97.6 20 95 06/10/20 06:09 Room Air I & O 06/10/20 06/10/20 06/11/20 15:00 23:00 07:00 Intake Total 960 ml 900 ml Balance 960 ml 900 ml Labs: Laboratory Tests Test 06/11/20 07:21 Glucose (Fingerstick) 106 mg/dL (70-99) H Current Medications: Meds: Laboratory Tests Test 06/11/20 07:21 Glucose (Fingerstick) 106 mg/dL Current Medications Medications (Trade) Dose Ordered Sig/Rober Route PRN Reason Start Time Stop Time Status Last Admin Dose Admin Acetaminophen (Tylenol) 650 mg PRN Q6HRS PRN PO MILD PAIN / TEMP > 100.3'F 05/30/20 15:45 Multi-Ingredient Ointment (Analgesic [place]) 1 muriel PRN QID PRN TP MUSCLE PAIN 05/30/20 15:45 Al Hydroxide/Mg Hydroxide (Mylanta Plus Xs) 15 ml PRN AFTMEALHC PRN PO DYSPEPSIA 05/30/20 15:45 Magnesium Hydroxide (Milk Of Magnesia) 2,400 mg PRN QHS PRN PO CONSTIPATION 05/30/20 15:45 Nicotine (Nicoderm Cq 21mg Patch) 1 patch DAILY TD 05/30/20 16:30 06/11/20 07:32 Aspirin (Aspirin Enteric Coated) 81 mg DAILY PO 05/31/20 09:00 06/11/20 07:35 Bupropion HCl (Wellbutrin Sr) 200 mg DAILY PO 05/31/20 09:00 06/11/20 07:33 Docusate Sodium (Colace) 100 mg BID PO 05/30/20 21:00 06/11/20 07:35 Furosemide (Lasix) 40 mg DAILY PO 05/31/20 09:00 06/11/20 07:34 Gabapentin (Neurontin) 100 mg TID PO 05/30/20 21:00 06/11/20 07:37 Levothyroxine Sodium (Synthroid) 100 mcg DAILY06 PO 05/31/20 06:00 06/11/20 05:34 Lisinopril (Prinivil) 5 mg DAILY PO 05/31/20 09:00 06/11/20 07:33 Lisinopril (Prinivil) 20 mg DAILY PO 05/31/20 09:00 06/11/20 07:35 Metformin HCl (Glucophage) 500 mg BIDWMEALS PO 05/30/20 17:00 05/30/20 17:56 DC Neomycin Sulfate (Neomycin Sulfate) 4,000 mg DAILY PO 05/31/20 09:00 05/31/20 13:21 DC Paliperidone Palmitate (Invega Sustenna) 234 mg QMONTH IM 06/11/20 09:00 Risperidone (RisperDAL) 0.5 mg TID PO 05/30/20 21:00 06/11/20 07:34 Spironolactone (Aldactone) 25 mg DAILY PO 05/31/20 09:00 06/11/20 07:34 Tamsulosin HCl (Flomax) 0.4 mg DAILY PO 05/31/20 09:00 06/11/20 07:33 Vitamin D (Vitamin D3) 2,000 unit DAILY PO 05/31/20 09:00 06/11/20 07:33 Non-Formulary Medication (Medroxyprogesterone Acetate (Depo-Provera)) 1 ml Q2WKS IM 06/02/20 09:00 06/02/20 10:08 DC Multivitamins/ Calcium (Thera-M Plus) 1 tab DAILY PO 05/31/20 09:00 06/11/20 07:34 Pantoprazole Sodium (Protonix) 40 mg DAILYAC PO 05/31/20 07:30 06/11/20 07:35 Oxcarbazepine (Trileptal) 600 mg DAILY PO 05/31/20 09:00 06/11/20 07:34 Potassium Chloride (Klor-Con) 10 meq DAILYWBKFT PO 05/31/20 08:00 06/11/20 07:33 Demeclocycline HCl (Declomycin) 300 mg BID PO 05/30/20 21:00 06/11/20 07:36 Sodium Chloride (Sodium Chloride Tab) 2 gm BID PO 05/30/20 21:00 06/11/20 07:36 Medroxyprogesterone Acetate (Depo-Provera Im) 150 mg Q2WKS IM 06/02/20 10:15 06/02/20 10:15 I have reviewed the current psychotropics carefully including drug interactions. Risk benefit ratio favors no change other than as noted in my dictated progress note. Diagnosis: Problems: (1) Bipolar disorder, current episode mixed, severe, with psychotic features (2) Anxiety disorder (3) Impulse control disorder (4) Schizoaffective disorder, bipolar type (5) Schizoaffective disorder, chronic condition with acute exacerbation LEONARD ASHFORD MD Jun 11, 2020 08:26
[2020-06-11] MEDS ORDERED: PALIPERIDONE PALMITATE 234 MG/1.5 ML SYRINGE KIT. IM SCH (09:00)
[2020-06-11 16:18] VITALS: BP 114/78
--- NOTE | 2020-06-11 21:51 | PDOC ---
Exam Note: Rafael Note: Please also refer to the separate dictated note~for this date of service dictated separately.~Patient seen individually. Discussed the patient with Nursing staff reviewed the chart.~Reviewed interim history and current functioning. Reviewed vital signs,~Labs/ Radiology~and current medications noted below. Continue current treatment with the changes noted in the dictated addendum note Assessment: Vital Signs/I&O: Vital Signs Date Time Temp Pulse Resp B/P (MAP) Pulse Ox O2 Delivery O2 Flow Rate FiO2 06/11/20 16:18 97.1 81 18 114/78 (90) 95 06/10/20 06:09 Room Air I & O 06/10/20 06/10/20 06/11/20 15:00 23:00 07:00 Intake Total 960 ml 900 ml Balance 960 ml 900 ml Labs: Laboratory Tests Test 06/11/20 07:21 Glucose (Fingerstick) 106 mg/dL (70-99) H Current Medications: Meds: Laboratory Tests Test 06/11/20 07:21 Glucose (Fingerstick) 106 mg/dL Current Medications Medications (Trade) Dose Ordered Sig/Rober Route PRN Reason Start Time Stop Time Status Last Admin Dose Admin Acetaminophen (Tylenol) 650 mg PRN Q6HRS PRN PO MILD PAIN / TEMP > 100.3'F 05/30/20 15:45 Multi-Ingredient Ointment (Analgesic [place]) 1 muriel PRN QID PRN TP MUSCLE PAIN 05/30/20 15:45 Al Hydroxide/Mg Hydroxide (Mylanta Plus Xs) 15 ml PRN AFTMEALHC PRN PO DYSPEPSIA 05/30/20 15:45 Magnesium Hydroxide (Milk Of Magnesia) 2,400 mg PRN QHS PRN PO CONSTIPATION 05/30/20 15:45 Nicotine (Nicoderm Cq 21mg Patch) 1 patch DAILY TD 05/30/20 16:30 06/11/20 07:32 Aspirin (Aspirin Enteric Coated) 81 mg DAILY PO 05/31/20 09:00 06/11/20 07:35 Bupropion HCl (Wellbutrin Sr) 200 mg DAILY PO 05/31/20 09:00 06/11/20 07:33 Docusate Sodium (Colace) 100 mg BID PO 05/30/20 21:00 06/11/20 21:21 Furosemide (Lasix) 40 mg DAILY PO 05/31/20 09:00 06/11/20 07:34 Gabapentin (Neurontin) 100 mg TID PO 05/30/20 21:00 06/11/20 21:23 Levothyroxine Sodium (Synthroid) 100 mcg DAILY06 PO 05/31/20 06:00 06/11/20 05:34 Lisinopril (Prinivil) 5 mg DAILY PO 05/31/20 09:00 06/11/20 07:33 Lisinopril (Prinivil) 20 mg DAILY PO 05/31/20 09:00 06/11/20 07:35 Metformin HCl (Glucophage) 500 mg BIDWMEALS PO 05/30/20 17:00 05/30/20 17:56 DC Neomycin Sulfate (Neomycin Sulfate) 4,000 mg DAILY PO 05/31/20 09:00 05/31/20 13:21 DC Paliperidone Palmitate (Invega Sustenna) 234 mg QMONTH IM 06/11/20 09:00 06/11/20 08:36 Risperidone (RisperDAL) 0.5 mg TID PO 05/30/20 21:00 06/11/20 21:21 Spironolactone (Aldactone) 25 mg DAILY PO 05/31/20 09:00 06/11/20 07:34 Tamsulosin HCl (Flomax) 0.4 mg DAILY PO 05/31/20 09:00 06/11/20 07:33 Vitamin D (Vitamin D3) 2,000 unit DAILY PO 05/31/20 09:00 06/11/20 07:33 Non-Formulary Medication (Medroxyprogesterone Acetate (Depo-Provera)) 1 ml Q2WKS IM 06/02/20 09:00 06/02/20 10:08 DC Multivitamins/ Calcium (Thera-M Plus) 1 tab DAILY PO 05/31/20 09:00 06/11/20 07:34 Pantoprazole Sodium (Protonix) 40 mg DAILYAC PO 05/31/20 07:30 06/11/20 07:35 Oxcarbazepine (Trileptal) 600 mg DAILY PO 05/31/20 09:00 06/11/20 07:34 Potassium Chloride (Klor-Con) 10 meq DAILYWBKFT PO 05/31/20 08:00 06/11/20 07:33 Demeclocycline HCl (Declomycin) 300 mg BID PO 05/30/20 21:00 06/11/20 21:23 Sodium Chloride (Sodium Chloride Tab) 2 gm BID PO 05/30/20 21:00 06/11/20 21:22 Medroxyprogesterone Acetate (Depo-Provera Im) 150 mg Q2WKS IM 06/02/20 10:15 06/02/20 10:15 Current Medications Medications (Trade) Dose Ordered Sig/Rober Route PRN Reason Start Time Stop Time Status Last Admin Dose Admin Paliperidone Palmitate (Invega Sustenna) 234 mg QMONTH IM 06/11/20 09:00 06/11/20 08:36 I have reviewed the current psychotropics carefully including drug interactions. Risk benefit ratio favors no change other than as noted in my dictated progress note. Diagnosis: Problems: (1) Bipolar disorder, current episode mixed, severe, with psychotic features (2) Anxiety disorder (3) Impulse control disorder (4) Schizoaffective disorder, bipolar type (5) Schizoaffective disorder, chronic condition with acute exacerbation LEONARD ASHFORD MD Jun 11, 2020 21:51
[2020-06-12] MEDS: LEVOTHYROXINE 100 MCG TABLET PO SCH (05:00)
[2020-06-12 06:24] VITALS: BP 118/82
[2020-06-12] MEDS: ASPIRIN ENTERIC COATED 81 MG TABLET.DR. PO SCH (07:26)
[2020-06-12] MEDS: buPROPion SR 100 MG TABLET.SA. PO SCH (07:26)
[2020-06-12] MEDS: MULTIVITAMIN with MINERAL TABLET. PO SCH (07:26)
[2020-06-12] MEDS: SODIUM CHLORIDE 1 GM TABLET PO SCH ×2 (07:26→21:06)
[2020-06-12] MEDS: SPIRONOLACTONE 25 MG TABLET PO SCH (07:26)
[2020-06-12] MEDS: TAMSULOSIN 0.4 MG CAP.ER.24H. PO SCH (07:26)
[2020-06-12] MEDS: FUROSEMIDE 40 MG TABLET PO SCH (07:27)
[2020-06-12] MEDS: LISINOPRIL 20 MG TABLET PO SCH (07:27)
[2020-06-12] MEDS: POTASSIUM CHLORIDE 10 MEQ TABLET.ER. PO SCH (07:27)
[2020-06-12] MEDS: CHOLECALCIFEROL (VITAMIN D3) 1,000 UNIT TABLET PO SCH (07:27)
[2020-06-12] MEDS: DOCUSATE SODIUM 100 MG CAPSULE PO SCH ×2 (07:28→21:04)
[2020-06-12] MEDS: LISINOPRIL 5 MG TABLET. PO SCH (07:28)
[2020-06-12] MEDS: NICOTINE 21MG PATCH. TD SCH (07:28)
[2020-06-12] MEDS: risperiDONE 0.5 MG TABLET. PO SCH ×3 (07:28→21:04)
[2020-06-12] MEDS: PANTOPRAZOLE 40 MG TABLET. PO SCH (07:28)
[2020-06-12] MEDS: DEMECLOCYCLINE HCL 150 MG TABLET. PO SCH ×2 (07:29→21:07)
--- NOTE | 2020-06-12 07:29 | PDOC ---
Exam Note: Rafael Note: This note is a late entry for 06/11/2020 covers elements not covered in my initial note. Subjective: The patient was seen individually in the evening of 06/11/2020 with Litzy Hooks RN, discussed and reviewed the chart. The patient just slept 6-1/4 hours previous night. I met with him in his room. He is lying in bed. He remains withdrawn, but denies any hallucinations, suicidal or homicidal ideation. Review of Systems: No CV, , pulmonary, eye system symptoms on review. Mental Status Exam: The patient is reasonably oriented. I discussed with the patient about possible discharge plans in the next 2 or 3 days and he was agreeable to it. Speech has moderate latency. Often response is monosyllabic. Abstraction is fair. Computation impaired. Attention span is short. Language function intact. Mood and affect withdrawn. Laboratory Data: Reviewed. Impression: Schizoaffective disorder bipolar type, mixed with psychotic featu res, in partial remission. Anxiety disorder unspecified. Impulse control disorder unspecified. Plan: We will continue current psychotropics. Assessment: Vital Signs/I&O: Vital Signs Date Time Temp Pulse Resp B/P (MAP) Pulse Ox O2 Delivery O2 Flow Rate FiO2 06/12/20 06:24 96.8 105 18 118/82 (94) 97 06/10/20 06:09 Room Air I & O 06/11/20 06/11/20 06/12/20 15:00 23:00 07:00 Intake Total 1080 ml 600 ml Balance 1080 ml 600 ml Current Medications: Meds: Current Medications Medications (Trade) Dose Ordered Sig/Rober Route PRN Reason Start Time Stop Time Status Last Admin Dose Admin Acetaminophen (Tylenol) 650 mg PRN Q6HRS PRN PO MILD PAIN / TEMP > 100.3'F 05/30/20 15:45 Multi-Ingredient Ointment (Analgesic [place]) 1 muriel PRN QID PRN TP MUSCLE PAIN 05/30/20 15:45 Al Hydroxide/Mg Hydroxide (Mylanta Plus Xs) 15 ml PRN AFTMEALHC PRN PO DYSPEPSIA 05/30/20 15:45 Magnesium Hydroxide (Milk Of Magnesia) 2,400 mg PRN QHS PRN PO CONSTIPATION 05/30/20 15:45 Nicotine (Nicoderm Cq 21mg Patch) 1 patch DAILY TD 05/30/20 16:30 06/11/20 07:32 Aspirin (Aspirin Enteric Coated) 81 mg DAILY PO 05/31/20 09:00 06/11/20 07:35 Bupropion HCl (Wellbutrin Sr) 200 mg DAILY PO 05/31/20 09:00 06/11/20 07:33 Docusate Sodium (Colace) 100 mg BID PO 05/30/20 21:00 06/11/20 21:21 Furosemide (Lasix) 40 mg DAILY PO 05/31/20 09:00 06/11/20 07:34 Gabapentin (Neurontin) 100 mg TID PO 05/30/20 21:00 06/11/20 21:23 Levothyroxine Sodium (Synthroid) 100 mcg DAILY06 PO 05/31/20 06:00 06/12/20 05:00 Lisinopril (Prinivil) 5 mg DAILY PO 05/31/20 09:00 06/11/20 07:33 Lisinopril (Prinivil) 20 mg DAILY PO 05/31/20 09:00 06/11/20 07:35 Metformin HCl (Glucophage) 500 mg BIDWMEALS PO 05/30/20 17:00 05/30/20 17:56 DC Neomycin Sulfate (Neomycin Sulfate) 4,000 mg DAILY PO 05/31/20 09:00 05/31/20 13:21 DC Paliperidone Palmitate (Invega Sustenna) 234 mg QMONTH IM 06/11/20 09:00 06/11/20 08:36 Risperidone (RisperDAL) 0.5 mg TID PO 05/30/20 21:00 06/11/20 21:21 Spironolactone (Aldactone) 25 mg DAILY PO 05/31/20 09:00 06/11/20 07:34 Tamsulosin HCl (Flomax) 0.4 mg DAILY PO 05/31/20 09:00 06/11/20 07:33 Vitamin D (Vitamin D3) 2,000 unit DAILY PO 05/31/20 09:00 06/11/20 07:33 Non-Formulary Medication (Medroxyprogesterone Acetate (Depo-Provera)) 1 ml Q2WKS IM 06/02/20 09:00 06/02/20 10:08 DC Multivitamins/ Calcium (Thera-M Plus) 1 tab DAILY PO 05/31/20 09:00 06/11/20 07:34 Pantoprazole Sodium (Protonix) 40 mg DAILYAC PO 05/31/20 07:30 06/11/20 07:35 Oxcarbazepine (Trileptal) 600 mg DAILY PO 05/31/20 09:00 06/11/20 07:34 Potassium Chloride (Klor-Con) 10 meq DAILYWBKFT PO 05/31/20 08:00 06/11/20 07:33 Demeclocycline HCl (Declomycin) 300 mg BID PO 05/30/20 21:00 06/11/20 21:23 Sodium Chloride (Sodium Chloride Tab) 2 gm BID PO 05/30/20 21:00 06/11/20 21:22 Medroxyprogesterone Acetate (Depo-Provera Im) 150 mg Q2WKS IM 06/02/20 10:15 06/02/20 10:15 Current Medications Medications (Trade) Dose Ordered Sig/Rober Route PRN Reason Start Time Stop Time Status Last Admin Dose Admin Paliperidone Palmitate (Invega Sustenna) 234 mg QMONTH IM 06/11/20 09:00 06/11/20 08:36 I have reviewed the current psychotropics carefully including drug interactions. Risk benefit ratio favors no change other than as noted in my dictated progress note. Diagnosis: Problems: (1) Bipolar disorder, current episode mixed, severe, with psychotic features (2) Anxiety disorder (3) Impulse control disorder (4) Schizoaffective disorder, bipolar type (5) Schizoaffective disorder, chronic condition with acute exacerbation LEONARD ASHFORD MD Jun 12, 2020 07:29
[2020-06-12] MEDS: GABAPENTIN 100 MG CAPSULE. PO SCH ×3 (07:55→21:05)
[2020-06-12 15:47] VITALS: BP 95/62
--- NOTE | 2020-06-12 21:54 | PDOC ---
Exam Note: Rafael Note: Please also refer to the separate dictated note~for this date of service dictated separately.~Patient seen individually. Discussed the patient with Nursing staff reviewed the chart.~Reviewed interim history and current functioning. Reviewed vital signs,~Labs/ Radiology~and current medications noted below. Continue current treatment with the changes noted in the dictated addendum note Assessment: Vital Signs/I&O: Vital Signs Date Time Temp Pulse Resp B/P (MAP) Pulse Ox O2 Delivery O2 Flow Rate FiO2 06/12/20 15:47 98.0 93 20 95/62 (73) 98 06/10/20 06:09 Room Air I & O 06/11/20 06/11/20 06/12/20 15:00 23:00 07:00 Intake Total 1080 ml 600 ml Balance 1080 ml 600 ml Labs: Laboratory Tests Test 06/12/20 07:50 Glucose (Fingerstick) 106 mg/dL (70-99) H Current Medications: Meds: Laboratory Tests Test 06/12/20 07:50 Glucose (Fingerstick) 106 mg/dL Current Medications Medications (Trade) Dose Ordered Sig/Rober Route PRN Reason Start Time Stop Time Status Last Admin Dose Admin Acetaminophen (Tylenol) 650 mg PRN Q6HRS PRN PO MILD PAIN / TEMP > 100.3'F 05/30/20 15:45 Multi-Ingredient Ointment (Analgesic [place]) 1 muriel PRN QID PRN TP MUSCLE PAIN 05/30/20 15:45 Al Hydroxide/Mg Hydroxide (Mylanta Plus Xs) 15 ml PRN AFTMEALHC PRN PO DYSPEPSIA 05/30/20 15:45 Magnesium Hydroxide (Milk Of Magnesia) 2,400 mg PRN QHS PRN PO CONSTIPATION 05/30/20 15:45 Nicotine (Nicoderm Cq 21mg Patch) 1 patch DAILY TD 05/30/20 16:30 06/12/20 07:28 Aspirin (Aspirin Enteric Coated) 81 mg DAILY PO 05/31/20 09:00 06/12/20 07:26 Bupropion HCl (Wellbutrin Sr) 200 mg DAILY PO 05/31/20 09:00 06/12/20 07:26 Docusate Sodium (Colace) 100 mg BID PO 05/30/20 21:00 06/12/20 21:04 Furosemide (Lasix) 40 mg DAILY PO 05/31/20 09:00 06/12/20 07:27 Gabapentin (Neurontin) 100 mg TID PO 05/30/20 21:00 06/12/20 21:05 Levothyroxine Sodium (Synthroid) 100 mcg DAILY06 PO 05/31/20 06:00 06/12/20 05:00 Lisinopril (Prinivil) 5 mg DAILY PO 05/31/20 09:00 06/12/20 07:28 Lisinopril (Prinivil) 20 mg DAILY PO 05/31/20 09:00 06/12/20 07:27 Metformin HCl (Glucophage) 500 mg BIDWMEALS PO 05/30/20 17:00 05/30/20 17:56 DC Neomycin Sulfate (Neomycin Sulfate) 4,000 mg DAILY PO 05/31/20 09:00 05/31/20 13:21 DC Paliperidone Palmitate (Invega Sustenna) 234 mg QMONTH IM 06/11/20 09:00 06/11/20 08:36 Risperidone (RisperDAL) 0.5 mg TID PO 05/30/20 21:00 06/12/20 21:04 Spironolactone (Aldactone) 25 mg DAILY PO 05/31/20 09:00 06/12/20 07:26 Tamsulosin HCl (Flomax) 0.4 mg DAILY PO 05/31/20 09:00 06/12/20 07:26 Vitamin D (Vitamin D3) 2,000 unit DAILY PO 05/31/20 09:00 06/12/20 07:27 Non-Formulary Medication (Medroxyprogesterone Acetate (Depo-Provera)) 1 ml Q2WKS IM 06/02/20 09:00 06/02/20 10:08 DC Multivitamins/ Calcium (Thera-M Plus) 1 tab DAILY PO 05/31/20 09:00 06/12/20 07:26 Pantoprazole Sodium (Protonix) 40 mg DAILYAC PO 05/31/20 07:30 06/12/20 07:28 Oxcarbazepine (Trileptal) 600 mg DAILY PO 05/31/20 09:00 06/12/20 07:28 Potassium Chloride (Klor-Con) 10 meq DAILYWBKFT PO 05/31/20 08:00 06/12/20 07:27 Demeclocycline HCl (Declomycin) 300 mg BID PO 05/30/20 21:00 06/12/20 21:07 Sodium Chloride (Sodium Chloride Tab) 2 gm BID PO 05/30/20 21:00 06/12/20 21:06 Medroxyprogesterone Acetate (Depo-Provera Im) 150 mg Q2WKS IM 06/02/20 10:15 06/02/20 10:15 I have reviewed the current psychotropics carefully including drug interactions. Risk benefit ratio favors no change other than as noted in my dictated progress note. Diagnosis: Problems: (1) Bipolar disorder, current episode mixed, severe, with psychotic features (2) Anxiety disorder (3) Impulse control disorder (4) Schizoaffective disorder, bipolar type (5) Schizoaffective disorder, chronic condition with acute exacerbation LEONARD ASHFORD MD Jun 12, 2020 21:54
[2020-06-13] MEDS ORDERED: NICO1PAT21 TD (00:46)
[2020-06-13] MEDS ORDERED: ACET325T9 PO (00:47)
[2020-06-13] MEDS ORDERED: MAGN24003 PO (00:49)
[2020-06-13] MEDS ORDERED: MAG-115 PO (00:49)
[2020-06-13] MEDS ORDERED: METH28OI2 TP (00:50)
[2020-06-13] MEDS: LEVOTHYROXINE 100 MCG TABLET PO SCH (05:43)
[2020-06-13 06:16] VITALS: BP 115/70
--- NOTE | 2020-06-13 06:56 | PDOC ---
Exam Note: Rafael Note: This note is a late entry for 06/12/2020 covers elements not covered in my initial note. Subjective: The patient was seen individually in the evening of 06/12/2020 with Litzy Hooks RN, discussed and reviewed the chart. The patient just slept 5-1/4 hours previous night. Nursing staff found some sexually inappropriate notes in his bed. They checked with the assisted and the assisted indicated that this was not unusual for the patient so long as his behaviors were stable and he was not aggressive or agitated. They accept him back. He has been calm, compliant. Review of Systems: No CV, , pulmonary, eye system symptoms on review. Mental Status Exam: The patient is reasonably oriented. Speech has moderate latency. Often response is monosyllabic. Abstraction is fair. Computation impaired. Attention span is short. Language function intact. Mood and affect withdrawn. Laboratory Data: Reviewed. Impression: Schizoaffective disorder bipolar type, mixed with psychotic features, in partial remission. Anxiety disorder unspecified. Impulse control disorder unspecified. Plan: We will continue current psychotropics. We have planned to discharge the patient back to assisted tomorrow. Assessment: Vital Signs/I&O: Vital Signs Date Time Temp Pulse Resp B/P (MAP) Pulse Ox O2 Delivery O2 Flow Rate FiO2 06/13/20 06:16 97.9 100 18 115/70 (85) 94 06/10/20 06:09 Room Air I & O 06/12/20 06/12/20 06/13/20 15:00 23:00 07:00 Intake Total 720 ml 440 ml Balance 720 ml 440 ml Labs: Laboratory Tests Test 06/12/20 07:50 Glucose (Fingerstick) 106 mg/dL (70-99) H Current Medications: Meds: Laboratory Tests Test 06/12/20 07:50 Glucose (Fingerstick) 106 mg/dL Current Medications Medications (Trade) Dose Ordered Sig/Rober Route PRN Reason Start Time Stop Time Status Last Admin Dose Admin Acetaminophen (Tylenol) 650 mg PRN Q6HRS PRN PO MILD PAIN / TEMP > 100.3'F 05/30/20 15:45 Multi-Ingredient Ointment (Analgesic [place]) 1 muriel PRN QID PRN TP MUSCLE PAIN 05/30/20 15:45 Al Hydroxide/Mg Hydroxide (Mylanta Plus Xs) 15 ml PRN AFTMEALHC PRN PO DYSPEPSIA 05/30/20 15:45 Magnesium Hydroxide (Milk Of Magnesia) 2,400 mg PRN QHS PRN PO CONSTIPATION 05/30/20 15:45 Nicotine (Nicoderm Cq 21mg Patch) 1 patch DAILY TD 05/30/20 16:30 06/12/20 07:28 Aspirin (Aspirin Enteric Coated) 81 mg DAILY PO 05/31/20 09:00 06/12/20 07:26 Bupropion HCl (Wellbutrin Sr) 200 mg DAILY PO 05/31/20 09:00 06/12/20 07:26 Docusate Sodium (Colace) 100 mg BID PO 05/30/20 21:00 06/12/20 21:04 Furosemide (Lasix) 40 mg DAILY PO 05/31/20 09:00 06/12/20 07:27 Gabapentin (Neurontin) 100 mg TID PO 05/30/20 21:00 06/12/20 21:05 Levothyroxine Sodium (Synthroid) 100 mcg DAILY06 PO 05/31/20 06:00 06/13/20 05:43 Lisinopril (Prinivil) 5 mg DAILY PO 05/31/20 09:00 06/12/20 07:28 Lisinopril (Prinivil) 20 mg DAILY PO 05/31/20 09:00 06/12/20 07:27 Metformin HCl (Glucophage) 500 mg BIDWMEALS PO 05/30/20 17:00 05/30/20 17:56 DC Neomycin Sulfate (Neomycin Sulfate) 4,000 mg DAILY PO 05/31/20 09:00 05/31/20 13:21 DC Paliperidone Palmitate (Invega Sustenna) 234 mg QMONTH IM 06/11/20 09:00 06/11/20 08:36 Risperidone (RisperDAL) 0.5 mg TID PO 05/30/20 21:00 06/12/20 21:04 Spironolactone (Aldactone) 25 mg DAILY PO 05/31/20 09:00 06/12/20 07:26 Tamsulosin HCl (Flomax) 0.4 mg DAILY PO 05/31/20 09:00 06/12/20 07:26 Vitamin D (Vitamin D3) 2,000 unit DAILY PO 05/31/20 09:00 06/12/20 07:27 Non-Formulary Medication (Medroxyprogesterone Acetate (Depo-Provera)) 1 ml Q2WKS IM 06/02/20 09:00 06/02/20 10:08 DC Multivitamins/ Calcium (Thera-M Plus) 1 tab DAILY PO 05/31/20 09:00 06/12/20 07:26 Pantoprazole Sodium (Protonix) 40 mg DAILYAC PO 05/31/20 07:30 06/12/20 07:28 Oxcarbazepine (Trileptal) 600 mg DAILY PO 05/31/20 09:00 06/12/20 07:28 Potassium Chloride (Klor-Con) 10 meq DAILYWBKFT PO 05/31/20 08:00 06/12/20 07:27 Demeclocycline HCl (Declomycin) 300 mg BID PO 05/30/20 21:00 06/12/20 21:07 Sodium Chloride (Sodium Chloride Tab) 2 gm BID PO 05/30/20 21:00 06/12/20 21:06 Medroxyprogesterone Acetate (Depo-Provera Im) 150 mg Q2WKS IM 06/02/20 10:15 06/02/20 10:15 I have reviewed the current psychotropics carefully including drug interactions. Risk benefit ratio favors no change other than as noted in my dictated progress note. Diagnosis: Problems: (1) Bipolar disorder, current episode mixed, severe, with psychotic features (2) Anxiety disorder (3) Impulse control disorder (4) Schizoaffective disorder, bipolar type (5) Schizoaffective disorder, chronic condition with acute exacerbation LEONARD ASHFORD MD Jun 13, 2020 06:56
[2020-06-13] MEDS ORDERED: sodium chloride tab PO (07:32)
[2020-06-13] MEDS: risperiDONE 0.5 MG TABLET. PO SCH ×3 (08:35→20:34)
[2020-06-13] MEDS: NICOTINE 21MG PATCH. TD SCH (08:35)
[2020-06-13] MEDS: POTASSIUM CHLORIDE 10 MEQ TABLET.ER. PO SCH (08:35)
[2020-06-13] MEDS: LISINOPRIL 5 MG TABLET. PO SCH (08:35)
[2020-06-13] MEDS: TAMSULOSIN 0.4 MG CAP.ER.24H. PO SCH (08:36)
[2020-06-13] MEDS: LISINOPRIL 20 MG TABLET PO SCH (08:36)
[2020-06-13] MEDS: FUROSEMIDE 40 MG TABLET PO SCH (08:36)
[2020-06-13] MEDS: PANTOPRAZOLE 40 MG TABLET. PO SCH (08:36)
[2020-06-13] MEDS: SPIRONOLACTONE 25 MG TABLET PO SCH (08:36)
[2020-06-13] MEDS: DOCUSATE SODIUM 100 MG CAPSULE PO SCH ×2 (08:37→20:34)
[2020-06-13] MEDS: CHOLECALCIFEROL (VITAMIN D3) 1,000 UNIT TABLET PO SCH (08:37)
[2020-06-13] MEDS: buPROPion SR 100 MG TABLET.SA. PO SCH (08:37)
[2020-06-13] MEDS: ASPIRIN ENTERIC COATED 81 MG TABLET.DR. PO SCH (08:37)
[2020-06-13] MEDS: MULTIVITAMIN with MINERAL TABLET. PO SCH (08:37)
[2020-06-13] MEDS: SODIUM CHLORIDE 1 GM TABLET PO SCH ×2 (08:41→20:33)
[2020-06-13] MEDS: GABAPENTIN 100 MG CAPSULE. PO SCH ×3 (08:41→20:34)
[2020-06-13] MEDS: DEMECLOCYCLINE HCL 150 MG TABLET. PO SCH ×2 (08:42→20:34)
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
[2020-06-13 16:02] VITALS: BP 132/91
--- NOTE | 2020-06-13 22:06 | PDOC ---
Exam Note: Rafael Note: Please also refer to the separate dictated note~for this date of service dictated separately.~Patient seen individually. Discussed the patient with Nursing staff reviewed the chart.~Reviewed interim history and current functioning. Reviewed vital signs,~Labs/ Radiology~and current medications noted below. Continue current treatment with the changes noted in the dictated addendum note Assessment: Vital Signs/I&O: Vital Signs Date Time Temp Pulse Resp B/P (MAP) Pulse Ox O2 Delivery O2 Flow Rate FiO2 06/13/20 16:02 98.1 80 20 132/91 (105) 98 06/10/20 06:09 Room Air I & O 06/12/20 06/12/20 06/13/20 15:00 23:00 07:00 Intake Total 720 ml 440 ml Balance 720 ml 440 ml Labs: Laboratory Tests Test 06/13/20 08:02 Glucose (Fingerstick) 103 mg/dL (70-99) H Current Medications: Meds: Laboratory Tests Test 06/13/20 08:02 Glucose (Fingerstick) 103 mg/dL Current Medications Medications (Trade) Dose Ordered Sig/Rober Route PRN Reason Start Time Stop Time Status Last Admin Dose Admin Acetaminophen (Tylenol) 650 mg PRN Q6HRS PRN PO MILD PAIN / TEMP > 100.3'F 05/30/20 15:45 Multi-Ingredient Ointment (Analgesic [place]) 1 muriel PRN QID PRN TP MUSCLE PAIN 05/30/20 15:45 Al Hydroxide/Mg Hydroxide (Mylanta Plus Xs) 15 ml PRN AFTMEALHC PRN PO DYSPEPSIA 05/30/20 15:45 Magnesium Hydroxide (Milk Of Magnesia) 2,400 mg PRN QHS PRN PO CONSTIPATION 05/30/20 15:45 Nicotine (Nicoderm Cq 21mg Patch) 1 patch DAILY TD 05/30/20 16:30 06/13/20 08:35 Aspirin (Aspirin Enteric Coated) 81 mg DAILY PO 05/31/20 09:00 06/13/20 08:37 Bupropion HCl (Wellbutrin Sr) 200 mg DAILY PO 05/31/20 09:00 06/13/20 08:37 Docusate Sodium (Colace) 100 mg BID PO 05/30/20 21:00 06/13/20 20:34 Furosemide (Lasix) 40 mg DAILY PO 05/31/20 09:00 06/13/20 08:36 Gabapentin (Neurontin) 100 mg TID PO 05/30/20 21:00 06/13/20 20:34 Levothyroxine Sodium (Synthroid) 100 mcg DAILY06 PO 05/31/20 06:00 06/13/20 05:43 Lisinopril (Prinivil) 5 mg DAILY PO 05/31/20 09:00 06/13/20 08:35 Lisinopril (Prinivil) 20 mg DAILY PO 05/31/20 09:00 06/13/20 08:36 Metformin HCl (Glucophage) 500 mg BIDWMEALS PO 05/30/20 17:00 05/30/20 17:56 DC Neomycin Sulfate (Neomycin Sulfate) 4,000 mg DAILY PO 05/31/20 09:00 05/31/20 13:21 DC Paliperidone Palmitate (Invega Sustenna) 234 mg QMONTH IM 06/11/20 09:00 06/11/20 08:36 Risperidone (RisperDAL) 0.5 mg TID PO 05/30/20 21:00 06/13/20 20:34 Spironolactone (Aldactone) 25 mg DAILY PO 05/31/20 09:00 06/13/20 08:36 Tamsulosin HCl (Flomax) 0.4 mg DAILY PO 05/31/20 09:00 06/13/20 08:36 Vitamin D (Vitamin D3) 2,000 unit DAILY PO 05/31/20 09:00 06/13/20 08:37 Non-Formulary Medication (Medroxyprogesterone Acetate (Depo-Provera)) 1 ml Q2WKS IM 06/02/20 09:00 06/02/20 10:08 DC Multivitamins/ Calcium (Thera-M Plus) 1 tab DAILY PO 05/31/20 09:00 06/13/20 08:37 Pantoprazole Sodium (Protonix) 40 mg DAILYAC PO 05/31/20 07:30 06/13/20 08:36 Oxcarbazepine (Trileptal) 600 mg DAILY PO 05/31/20 09:00 06/13/20 08:36 Potassium Chloride (Klor-Con) 10 meq DAILYWBKFT PO 05/31/20 08:00 06/13/20 08:35 Demeclocycline HCl (Declomycin) 300 mg BID PO 05/30/20 21:00 06/13/20 20:34 Sodium Chloride (Sodium Chloride Tab) 2 gm BID PO 05/30/20 21:00 06/13/20 20:33 Medroxyprogesterone Acetate (Depo-Provera Im) 150 mg Q2WKS IM 06/02/20 10:15 06/02/20 10:15 I have reviewed the current psychotropics carefully including drug interactions. Risk benefit ratio favors no change other than as noted in my dictated progress note. Diagnosis: Problems: (1) Bipolar disorder, current episode mixed, severe, with psychotic features (2) Anxiety disorder (3) Impulse control disorder (4) Schizoaffective disorder, bipolar type (5) Schizoaffective disorder, chronic condition with acute exacerbation LEONARD ASHFODR MD Jun 13, 2020 22:06
[2020-06-14] MEDS: LEVOTHYROXINE 100 MCG TABLET PO SCH (05:24)
[2020-06-14 05:45] VITALS: BP 116/76
[2020-06-14 05:46] LABS: BASO # 0.1 x10^3/uL (0.0-0.2); BASO % 1 % (0-3); EOS # 0.1 x10^3/uL (0.0-0.7); EOS % 1 % (0-3); HEMATOCRIT 35.8 % (39.0-53.0); LYMPH # 1.2 x10^3/uL (1.0-4.8); LYMPH % 18 % (24-48); MEAN CORPUSCULAR HEMOGLOBIN 32 pg (25-35); MEAN CORPUSCULAR HGB CONC 34 g/dL (31-37); MEAN CORPUSCULAR VOLUME 94 fL (79-100); MONO # 0.7 x10^3/uL (0.0-1.1); MONO % 10 % (0-9); NEUT # 4.8 x10^3uL (1.8-7.7); NEUT % 71 % (31-73); PLATELET COUNT 215 x10^3/uL (140-400); RED BLOOD COUNT 3.81 x10^6/uL (4.30-5.70); RED CELL DISTRIBUTION WIDTH 13.5 % (11.5-14.5); WHITE BLOOD COUNT 6.8 x10^3/uL (4.0-11.0)
[2020-06-14 05:57] LABS: ALBUMIN 3.4 g/dL (3.4-5.0); CREATININE 1.2 mg/dL (0.7-1.3); POTASSIUM 4.4 mmol/L (3.5-5.1); TOTAL BILIRUBIN 0.2 mg/dL (0.2-1.0); TOTAL PROTEIN 6.8 g/dL (6.4-8.2)
--- NOTE | 2020-06-14 06:36 | PDOC ---
Exam Note: Rafael Note: This note is a late entry for 06/13/2020 covers elements not covered in my initial note. Subjective: The patient was reviewed in the morning of 06/13/2020 for a treatment team meeting with Maria Mehta, Charlene Charles and Annalisa (social service coordinator), Tomeka, activity therapy and Litzy PERSAUD, discussed and reviewed the chart. The patient is compliant with his medications. He remains isolative, spends much time in bed. The patient slept 8-1/2 hours previous night. As noted previously some sexually inappropriate writings were found in his room but senior care staff indicated that this was not unusual for him and so long as his behavioral dyscontrol was stable they were willing to have him back. I met with him in his room. Review of Systems: No CV, , pulmonary, eye system symptoms on review. Mental Status Exam: The patient is reasonably oriented. He is quite withdrawn, tried to cover his face with bed-sheet but did interact as I met with him. Speech has moderate latency. Often response is monosyllabic. Abstraction is fair. Computation impaired. Attention span is short. Language function intact. Mood and affect withdrawn. No suicidal or homicidal ideation. Laboratory Data: Reviewed. Impression: Schizoaffective disorder bipolar type, mixed with psychotic features, in partial remission. Anxiety disorder unspecified. Impulse control disorder unspecified. Plan: We will continue current psychotropics. Transition to senior care later this week or early next week. We will defer to social service staff to coordinate this. Assessment: Vital Signs/I&O: Vital Signs Date Time Temp Pulse Resp B/P (MAP) Pulse Ox O2 Delivery O2 Flow Rate FiO2 06/14/20 05:45 98.3 89 16 116/76 (89) 96 06/10/20 06:09 Room Air I & O 0 06/13/20 06/13/20 06/14/20 15:00 23:00 07:00 Intake Total 720 ml 480 ml Balance 720 ml 480 ml Labs: Laboratory Tests Test 06/13/20 08:02 06/14/20 05:37 Glucose (Fingerstick) 103 mg/dL (70-99) H White Blood Count 6.8 x10^3/uL (4.0-11.0) Red Blood Count 3.81 x10^6/uL (4.30-5.70) L Hemoglobin 12.0 g/dL (13.0-17.5) L Hematocrit 35.8 % (39.0-53.0) L Mean Corpuscular Volume 94 fL (79-100) Mean Corpuscular Hemoglobin 32 pg (25-35) Mean Corpuscular Hemoglobin Concent 34 g/dL (31-37) Red Cell Distribution Width 13.5 % (11.5-14.5) Platelet Count 215 x10^3/uL (140-400) Neutrophils (%) (Auto) 71 % (31-73) Lymphocytes (%) (Auto) 18 % (24-48) L Monocytes (%) (Auto) 10 % (0-9) H Eosinophils (%) (Auto) 1 % (0-3) Basophils (%) (Auto) 1 % (0-3) Neutrophils # (Auto) 4.8 x10^3uL (1.8-7.7) Lymphocytes # (Auto) 1.2 x10^3/uL (1.0-4.8) Monocytes # (Auto) 0.7 x10^3/uL (0.0-1.1) Eosinophils # (Auto) 0.1 x10^3/uL (0.0-0.7) Basophils # (Auto) 0.1 x10^3/uL (0.0-0.2) Sodium Level 134 mmol/L (136-145) L Potassium Level 4.4 mmol/L (3.5-5.1) Chloride Level 101 mmol/L (98-107) Carbon Dioxide Level 25 mmol/L (21-32) Anion Gap 8 (6-14) Blood Urea Nitrogen 14 mg/dL (8-26) Creatinine 1.2 mg/dL (0.7-1.3) Estimated GFR (Cockcroft-Gault) 62.0 BUN/Creatinine Ratio 12 (6-20) Glucose Level 107 mg/dL (70-99) H Calcium Level 9.0 mg/dL (8.5-10.1) Total Bilirubin 0.2 mg/dL (0.2-1.0) Aspartate Amino Transferase (AST) 21 U/L (15-37) Alanine Aminotransferase (ALT) 40 U/L (16-63) Alkaline Phosphatase 142 U/L (46-116) H Total Protein 6.8 g/dL (6.4-8.2) Albumin 3.4 g/dL (3.4-5.0) Albumin/Globulin Ratio 1.0 (1.0-1.7) Current Medications: Meds: Laboratory Tests Test 06/13/20 08:02 06/14/20 05:37 Glucose (Fingerstick) 103 mg/dL White Blood Count 6.8 x10^3/uL Red Blood Count 3.81 x10^6/uL Hemoglobin 12.0 g/dL Hematocrit 35.8 % Mean Corpuscular Volume 94 fL Mean Corpuscular Hemoglobin 32 pg Mean Corpuscular Hemoglobin Concent 34 g/dL Red Cell Distribution Width 13.5 % Platelet Count 215 x10^3/uL Neutrophils (%) (Auto) 71 % Lymphocytes (%) (Auto) 18 % Monocytes (%) (Auto) 10 % Eosinophils (%) (Auto) 1 % Basophils (%) (Auto) 1 % Neutrophils # (Auto) 4.8 x10^3uL Lymphocytes # (Auto) 1.2 x10^3/uL Monocytes # (Auto) 0.7 x10^3/uL Eosinophils # (Auto) 0.1 x10^3/uL Basophils # (Auto) 0.1 x10^3/uL Sodium Level 134 mmol/L Potassium Level 4.4 mmol/L Chloride Level 101 mmol/L Carbon Dioxide Level 25 mmol/L Anion Gap 8 Blood Urea Nitrogen 14 mg/dL Creatinine 1.2 mg/dL Estimated GFR (Cockcroft-Gault) 62.0 BUN/Creatinine Ratio 12 Glucose Level 107 mg/dL Calcium Level 9.0 mg/dL Total Bilirubin 0.2 mg/dL Aspartate Amino Transf (AST/SGOT) 21 U/L Alanine Aminotransferase (ALT/SGPT) 40 U/L Alkaline Phosphatase 142 U/L Total Protein 6.8 g/dL Albumin 3.4 g/dL Albumin/Globulin Ratio 1.0 Current Medications Medications (Trade) Dose Ordered Sig/Rober Route PRN Reason Start Time Stop Time Status Last Admin Dose Admin Acetaminophen (Tylenol) 650 mg PRN Q6HRS PRN PO MILD PAIN / TEMP > 100.3'F 05/30/20 15:45 Multi-Ingredient Ointment (Analgesic [place]) 1 muriel PRN QID PRN TP MUSCLE PAIN 05/30/20 15:45 Al Hydroxide/Mg Hydroxide (Mylanta Plus Xs) 15 ml PRN AFTMEALHC PRN PO DYSPEPSIA 05/30/20 15:45 Magnesium Hydroxide (Milk Of Magnesia) 2,400 mg PRN QHS PRN PO CONSTIPATION 05/30/20 15:45 Nicotine (Nicoderm Cq 21mg Patch) 1 patch DAILY TD 05/30/20 16:30 06/13/20 08:35 Aspirin (Aspirin Enteric Coated) 81 mg DAILY PO 05/31/20 09:00 06/13/20 08:37 Bupropion HCl (Wellbutrin Sr) 200 mg DAILY PO 05/31/20 09:00 06/13/20 08:37 Docusate Sodium (Colace) 100 mg BID PO 05/30/20 21:00 06/13/20 20:34 Furosemide (Lasix) 40 mg DAILY PO 05/31/20 09:00 06/13/20 08:36 Gabapentin (Neurontin) 100 mg TID PO 05/30/20 21:00 06/13/20 20:34 Levothyroxine Sodium (Synthroid) 100 mcg DAILY06 PO 05/31/20 06:00 06/14/20 05:24 Lisinopril (Prinivil) 5 mg DAILY PO 05/31/20 09:00 06/13/20 08:35 Lisinopril (Prinivil) 20 mg DAILY PO 05/31/20 09:00 06/13/20 08:36 Metformin HCl (Glucophage) 500 mg BIDWMEALS PO 05/30/20 17:00 05/30/20 17:56 DC Neomycin Sulfate (Neomycin Sulfate) 4,000 mg DAILY PO 05/31/20 09:00 05/31/20 13:21 DC Paliperidone Palmitate (Invega Sustenna) 234 mg QMONTH IM 06/11/20 09:00 06/11/20 08:36 Risperidone (RisperDAL) 0.5 mg TID PO 05/30/20 21:00 06/13/20 20:34 Spironolactone (Aldactone) 25 mg DAILY PO 05/31/20 09:00 06/13/20 08:36 Tamsulosin HCl (Flomax) 0.4 mg DAILY PO 05/31/20 09:00 06/13/20 08:36 Vitamin D (Vitamin D3) 2,000 unit DAILY PO 05/31/20 09:00 06/13/20 08:37 Non-Formulary Medication (Medroxyprogesterone Acetate (Depo-Provera)) 1 ml Q2WKS IM 06/02/20 09:00 06/02/20 10:08 DC Multivitamins/ Calcium (Thera-M Plus) 1 tab DAILY PO 05/31/20 09:00 06/13/20 08:37 Pantoprazole Sodium (Protonix) 40 mg DAILYAC PO 05/31/20 07:30 06/13/20 08:36 Oxcarbazepine (Trileptal) 600 mg DAILY PO 05/31/20 09:00 06/13/20 08:36 Potassium Chloride (Klor-Con) 10 meq DAILYWBKFT PO 05/31/20 08:00 06/13/20 08:35 Demeclocycline HCl (Declomycin) 300 mg BID PO 05/30/20 21:00 06/13/20 20:34 Sodium Chloride (Sodium Chloride Tab) 2 gm BID PO 05/30/20 21:00 06/13/20 20:33 Medroxyprogesterone Acetate (Depo-Provera Im) 150 mg Q2WKS IM 06/02/20 10:15 06/02/20 10:15 I have reviewed the current psychotropics carefully including drug interactions. Risk benefit ratio favors no change other than as noted in my dictated progress note. Diagnosis: Problems: (1) Bipolar disorder, current episode mixed, severe, with psychotic features (2) Anxiety disorder (3) Impulse control disorder (4) Schizoaffective disorder, bipolar type (5) Schizoaffective disorder, chronic condition with acute exacerbation LEONARD ASHFORD MD Jun 14, 2020 06:36
[2020-06-14] MEDS: SPIRONOLACTONE 25 MG TABLET PO SCH (07:59)
[2020-06-14] MEDS: PANTOPRAZOLE 40 MG TABLET. PO SCH (07:59)
[2020-06-14] MEDS: buPROPion SR 100 MG TABLET.SA. PO SCH (07:59)
[2020-06-14] MEDS: DOCUSATE SODIUM 100 MG CAPSULE PO SCH ×2 (08:00→20:26)
[2020-06-14] MEDS: FUROSEMIDE 40 MG TABLET PO SCH (08:00)
[2020-06-14] MEDS: POTASSIUM CHLORIDE 10 MEQ TABLET.ER. PO SCH (08:00)
[2020-06-14] MEDS: LISINOPRIL 20 MG TABLET PO SCH (08:00)
[2020-06-14] MEDS: risperiDONE 0.5 MG TABLET. PO SCH ×3 (08:00→20:26)
[2020-06-14] MEDS: ASPIRIN ENTERIC COATED 81 MG TABLET.DR. PO SCH (08:00)
[2020-06-14] MEDS: TAMSULOSIN 0.4 MG CAP.ER.24H. PO SCH (08:00)
[2020-06-14] MEDS: LISINOPRIL 5 MG TABLET. PO SCH (08:01)
[2020-06-14] MEDS: NICOTINE 21MG PATCH. TD SCH (08:01)
[2020-06-14] MEDS: MULTIVITAMIN with MINERAL TABLET. PO SCH (08:01)
[2020-06-14] MEDS: CHOLECALCIFEROL (VITAMIN D3) 1,000 UNIT TABLET PO SCH (08:01)
[2020-06-14] MEDS: GABAPENTIN 100 MG CAPSULE. PO SCH ×3 (08:03→20:26)
[2020-06-14] MEDS: SODIUM CHLORIDE 1 GM TABLET PO SCH ×2 (08:04→20:29)
[2020-06-14] MEDS: DEMECLOCYCLINE HCL 150 MG TABLET. PO SCH ×2 (08:04→20:29)
[2020-06-14 16:10] VITALS: BP 135/74
--- NOTE | 2020-06-14 22:05 | PDOC ---
Exam Note: Rafael Note: Please also refer to the separate dictated note~for this date of service dictated separately.~Patient seen individually. Discussed the patient with Nursing staff reviewed the chart.~Reviewed interim history and current functioning. Reviewed vital signs,~Labs/ Radiology~and current medications noted below. Continue current treatment with the changes noted in the dictated addendum note Assessment: Vital Signs/I&O: Vital Signs Date Time Temp Pulse Resp B/P (MAP) Pulse Ox O2 Delivery O2 Flow Rate FiO2 06/14/20 16:10 97.8 101 20 135/74 (94) 98 Room Air I & O 06/13/20 06/13/20 06/14/20 15:00 23:00 07:00 Intake Total 720 ml 480 ml Balance 720 ml 480 ml Labs: Laboratory Tests Test 06/14/20 05:37 06/14/20 07:45 White Blood Count 6.8 x10^3/uL (4.0-11.0) Red Blood Count 3.81 x10^6/uL (4.30-5.70) L Hemoglobin 12.0 g/dL (13.0-17.5) L Hematocrit 35.8 % (39.0-53.0) L Mean Corpuscular Volume 94 fL (79-100) Mean Corpuscular Hemoglobin 32 pg (25-35) Mean Corpuscular Hemoglobin Concent 34 g/dL (31-37) Red Cell Distribution Width 13.5 % (11.5-14.5) Platelet Count 215 x10^3/uL (140-400) Neutrophils (%) (Auto) 71 % (31-73) Lymphocytes (%) (Auto) 18 % (24-48) L Monocytes (%) (Auto) 10 % (0-9) H Eosinophils (%) (Auto) 1 % (0-3) Basophils (%) (Auto) 1 % (0-3) Neutrophils # (Auto) 4.8 x10^3uL (1.8-7.7) Lymphocytes # (Auto) 1.2 x10^3/uL (1.0-4.8) Monocytes # (Auto) 0.7 x10^3/uL (0.0-1.1) Eosinophils # (Auto) 0.1 x10^3/uL (0.0-0.7) Basophils # (Auto) 0.1 x10^3/uL (0.0-0.2) Sodium Level 134 mmol/L (136-145) L Potassium Level 4.4 mmol/L (3.5-5.1) Chloride Level 101 mmol/L (98-107) Carbon Dioxide Level 25 mmol/L (21-32) Anion Gap 8 (6-14) Blood Urea Nitrogen 14 mg/dL (8-26) Creatinine 1.2 mg/dL (0.7-1.3) Estimated GFR (Cockcroft-Gault) 62.0 BUN/Creatinine Ratio 12 (6-20) Glucose Level 107 mg/dL (70-99) H Calcium Level 9.0 mg/dL (8.5-10.1) Total Bilirubin 0.2 mg/dL (0.2-1.0) Aspartate Amino Transferase (AST) 21 U/L (15-37) Alanine Aminotransferase (ALT) 40 U/L (16-63) Alkaline Phosphatase 142 U/L (46-116) H Total Protein 6.8 g/dL (6.4-8.2) Albumin 3.4 g/dL (3.4-5.0) Albumin/Globulin Ratio 1.0 (1.0-1.7) Glucose (Fingerstick) 106 mg/dL (70-99) H Current Medications: Meds: Laboratory Tests Test 06/14/20 05:37 06/14/20 07:45 White Blood Count 6.8 x10^3/uL Red Blood Count 3.81 x10^6/uL Hemoglobin 12.0 g/dL Hematocrit 35.8 % Mean Corpuscular Volume 94 fL Mean Corpuscular Hemoglobin 32 pg Mean Corpuscular Hemoglobin Concent 34 g/dL Red Cell Distribution Width 13.5 % Platelet Count 215 x10^3/uL Neutrophils (%) (Auto) 71 % Lymphocytes (%) (Auto) 18 % Monocytes (%) (Auto) 10 % Eosinophils (%) (Auto) 1 % Basophils (%) (Auto) 1 % Neutrophils # (Auto) 4.8 x10^3uL Lymphocytes # (Auto) 1.2 x10^3/uL Monocytes # (Auto) 0.7 x10^3/uL Eosinophils # (Auto) 0.1 x10^3/uL Basophils # (Auto) 0.1 x10^3/uL Sodium Level 134 mmol/L Potassium Level 4.4 mmol/L Chloride Level 101 mmol/L Carbon Dioxide Level 25 mmol/L Anion Gap 8 Blood Urea Nitrogen 14 mg/dL Creatinine 1.2 mg/dL Estimated GFR (Cockcroft-Gault) 62.0 BUN/Creatinine Ratio 12 Glucose Level 107 mg/dL Calcium Level 9.0 mg/dL Total Bilirubin 0.2 mg/dL Aspartate Amino Transf (AST/SGOT) 21 U/L Alanine Aminotransferase (ALT/SGPT) 40 U/L Alkaline Phosphatase 142 U/L Total Protein 6.8 g/dL Albumin 3.4 g/dL Albumin/Globulin Ratio 1.0 Glucose (Fingerstick) 106 mg/dL Current Medications Medications (Trade) Dose Ordered Sig/Rober Route PRN Reason Start Time Stop Time Status Last Admin Dose Admin Acetaminophen (Tylenol) 650 mg PRN Q6HRS PRN PO MILD PAIN / TEMP > 100.3'F 05/30/20 15:45 Multi-Ingredient Ointment (Analgesic [place]) 1 muriel PRN QID PRN TP MUSCLE PAIN 05/30/20 15:45 Al Hydroxide/Mg Hydroxide (Mylanta Plus Xs) 15 ml PRN AFTMEALHC PRN PO DYSPEPSIA 05/30/20 15:45 Magnesium Hydroxide (Milk Of Magnesia) 2,400 mg PRN QHS PRN PO CONSTIPATION 05/30/20 15:45 Nicotine (Nicoderm Cq 21mg Patch) 1 patch DAILY TD 05/30/20 16:30 06/14/20 08:01 Aspirin (Aspirin Enteric Coated) 81 mg DAILY PO 05/31/20 09:00 06/14/20 08:00 Bupropion HCl (Wellbutrin Sr) 200 mg DAILY PO 05/31/20 09:00 06/14/20 07:59 Docusate Sodium (Colace) 100 mg BID PO 05/30/20 21:00 06/14/20 20:26 Furosemide (Lasix) 40 mg DAILY PO 05/31/20 09:00 06/14/20 08:00 Gabapentin (Neurontin) 100 mg TID PO 05/30/20 21:00 06/14/20 20:26 Levothyroxine Sodium (Synthroid) 100 mcg DAILY06 PO 05/31/20 06:00 06/14/20 05:24 Lisinopril (Prinivil) 5 mg DAILY PO 05/31/20 09:00 06/14/20 08:01 Lisinopril (Prinivil) 20 mg DAILY PO 05/31/20 09:00 06/14/20 08:00 Metformin HCl (Glucophage) 500 mg BIDWMEALS PO 05/30/20 17:00 05/30/20 17:56 DC Neomycin Sulfate (Neomycin Sulfate) 4,000 mg DAILY PO 05/31/20 09:00 05/31/20 13:21 DC Paliperidone Palmitate (Invega Sustenna) 234 mg QMONTH IM 06/11/20 09:00 06/11/20 08:36 Risperidone (RisperDAL) 0.5 mg TID PO 05/30/20 21:00 06/14/20 20:26 Spironolactone (Aldactone) 25 mg DAILY PO 05/31/20 09:00 06/14/20 07:59 Tamsulosin HCl (Flomax) 0.4 mg DAILY PO 05/31/20 09:00 06/14/20 08:00 Vitamin D (Vitamin D3) 2,000 unit DAILY PO 05/31/20 09:00 06/14/20 08:01 Non-Formulary Medication (Medroxyprogesterone Acetate (Depo-Provera)) 1 ml Q2WKS IM 06/02/20 09:00 06/02/20 10:08 DC Multivitamins/ Calcium (Thera-M Plus) 1 tab DAILY PO 05/31/20 09:00 06/14/20 08:01 Pantoprazole Sodium (Protonix) 40 mg DAILYAC PO 05/31/20 07:30 06/14/20 07:59 Oxcarbazepine (Trileptal) 600 mg DAILY PO 05/31/20 09:00 06/14/20 08:01 Potassium Chloride (Klor-Con) 10 meq DAILYWBKFT PO 05/31/20 08:00 06/14/20 08:00 Demeclocycline HCl (Declomycin) 300 mg BID PO 05/30/20 21:00 06/14/20 20:29 Sodium Chloride (Sodium Chloride Tab) 2 gm BID PO 05/30/20 21:00 06/14/20 20:29 Medroxyprogesterone Acetate (Depo-Provera Im) 150 mg Q2WKS IM 06/02/20 10:15 06/02/20 10:15 I have reviewed the current psychotropics carefully including drug interactions. Risk benefit ratio favors no change other than as noted in my dictated progress note. Diagnosis: Problems: (1) Bipolar disorder, current episode mixed, severe, with psychotic features (2) Anxiety disorder (3) Impulse control disorder (4) Schizoaffective disorder, bipolar type (5) Schizoaffective disorder, chronic condition with acute exacerbation LEONARD ASHFORD MD Jun 14, 2020 22:04
[2020-06-15] MEDS: LEVOTHYROXINE 100 MCG TABLET PO SCH (06:20)
[2020-06-15 06:28] VITALS: BP 110/86
--- NOTE | 2020-06-15 07:27 | PDOC ---
Exam Note: Rafael Note: This note is a late entry for 06/14/2020 covers elements not covered in my initial note. Subjective: The patient was seen individually in the evening of 06/14/2020 with Rony PERSAUD, discussed and reviewed the chart. The patient is compliant with his medications. Overall the patient spends much time in his room. He has not been sexually inappropriate, more redirectable. I met with him in his room and discussed discharge plans at some length. He was more insightful. Review of Systems: No CV, , pulmonary, eye system symptoms on review. Mental Status Exam: The patient is reasonably oriented. Speech coherent. Often response is monosyllabic. Abstraction is fair. Computation impaired. Attention span is short. Language function intact. Mood and affect withdrawn. Laboratory Data: Reviewed. Impression: Schizoaffective disorder bipolar type, mixed with psychotic features, in partial remission. Anxiety disorder unspecified. Impulse control disorder unspecified. Plan: Transition back to [facility] next Wednesday. I addressed this with the patient. He was understanding. Assessment: Vital Signs/I&O: Vital Signs Date Time Temp Pulse Resp B/P (MAP) Pulse Ox O2 Delivery O2 Flow Rate FiO2 06/15/20 06:28 97.4 89 20 110/86 (94) 99 Room Air I & O 06/14/20 06/14/20 06/15/20 14:59 22:59 06:59 Intake Total 960 ml 600 ml Balance 960 ml 600 ml Labs: Laboratory Tests Test 06/14/20 07:45 Glucose (Fingerstick) 106 mg/dL (70-99) H Current Medications: Meds: Laboratory Tests Test 06/14/20 07:45 Glucose (Fingerstick) 106 mg/dL Current Medications Medications (Trade) Dose Ordered Sig/Rober Route PRN Reason Start Time Stop Time Status Last Admin Dose Admin Acetaminophen (Tylenol) 650 mg PRN Q6HRS PRN PO MILD PAIN / TEMP > 100.3'F 05/30/20 15:45 Multi-Ingredient Ointment (Analgesic [place]) 1 muriel PRN QID PRN TP MUSCLE PAIN 05/30/20 15:45 Al Hydroxide/Mg Hydroxide (Mylanta Plus Xs) 15 ml PRN AFTMEALHC PRN PO DYSPEPSIA 05/30/20 15:45 Magnesium Hydroxide (Milk Of Magnesia) 2,400 mg PRN QHS PRN PO CONSTIPATION 05/30/20 15:45 Nicotine (Nicoderm Cq 21mg Patch) 1 patch DAILY TD 05/30/20 16:30 06/14/20 08:01 Aspirin (Aspirin Enteric Coated) 81 mg DAILY PO 05/31/20 09:00 06/14/20 08:00 Bupropion HCl (Wellbutrin Sr) 200 mg DAILY PO 05/31/20 09:00 06/14/20 07:59 Docusate Sodium (Colace) 100 mg BID PO 05/30/20 21:00 06/14/20 20:26 Furosemide (Lasix) 40 mg DAILY PO 05/31/20 09:00 06/14/20 08:00 Gabapentin (Neurontin) 100 mg TID PO 05/30/20 21:00 06/14/20 20:26 Levothyroxine Sodium (Synthroid) 100 mcg DAILY06 PO 05/31/20 06:00 06/15/20 06:20 Lisinopril (Prinivil) 5 mg DAILY PO 05/31/20 09:00 06/14/20 08:01 Lisinopril (Prinivil) 20 mg DAILY PO 05/31/20 09:00 06/14/20 08:00 Metformin HCl (Glucophage) 500 mg BIDWMEALS PO 05/30/20 17:00 05/30/20 17:56 DC Neomycin Sulfate (Neomycin Sulfate) 4,000 mg DAILY PO 05/31/20 09:00 05/31/20 13:21 DC Paliperidone Palmitate (Invega Sustenna) 234 mg QMONTH IM 06/11/20 09:00 06/11/20 08:36 Risperidone (RisperDAL) 0.5 mg TID PO 05/30/20 21:00 06/14/20 20:26 Spironolactone (Aldactone) 25 mg DAILY PO 05/31/20 09:00 06/14/20 07:59 Tamsulosin HCl (Flomax) 0.4 mg DAILY PO 05/31/20 09:00 06/14/20 08:00 Vitamin D (Vitamin D3) 2,000 unit DAILY PO 05/31/20 09:00 06/14/20 08:01 Non-Formulary Medication (Medroxyprogesterone Acetate (Depo-Provera)) 1 ml Q2WKS IM 06/02/20 09:00 06/02/20 10:08 DC Multivitamins/ Calcium (Thera-M Plus) 1 tab DAILY PO 05/31/20 09:00 06/14/20 08:01 Pantoprazole Sodium (Protonix) 40 mg DAILYAC PO 05/31/20 07:30 06/14/20 07:59 Oxcarbazepine (Trileptal) 600 mg DAILY PO 05/31/20 09:00 06/14/20 08:01 Potassium Chloride (Klor-Con) 10 meq DAILYWBKFT PO 05/31/20 08:00 06/14/20 08:00 Demeclocycline HCl (Declomycin) 300 mg BID PO 05/30/20 21:00 06/14/20 20:29 Sodium Chloride (Sodium Chloride Tab) 2 gm BID PO 05/30/20 21:00 06/14/20 20:29 Medroxyprogesterone Acetate (Depo-Provera Im) 150 mg Q2WKS IM 06/02/20 10:15 06/02/20 10:15 I have reviewed the current psychotropics carefully including drug interactions. Risk benefit ratio favors no change other than as noted in my dictated progress note. Diagnosis: Problems: (1) Bipolar disorder, current episode mixed, severe, with psychotic features (2) Anxiety disorder (3) Impulse control disorder (4) Schizoaffective disorder, bipolar type (5) Schizoaffective disorder, chronic condition with acute exacerbation LEONARD ASHFORD MD Jun 15, 2020 07:27
[2020-06-15] MEDS: SODIUM CHLORIDE 1 GM TABLET PO SCH ×2 (08:08→20:20)
[2020-06-15] MEDS: CHOLECALCIFEROL (VITAMIN D3) 1,000 UNIT TABLET PO SCH (08:08)
[2020-06-15] MEDS: SPIRONOLACTONE 25 MG TABLET PO SCH (08:08)
[2020-06-15] MEDS: PANTOPRAZOLE 40 MG TABLET. PO SCH (08:08)
[2020-06-15] MEDS: ASPIRIN ENTERIC COATED 81 MG TABLET.DR. PO SCH (08:08)
[2020-06-15] MEDS: LISINOPRIL 5 MG TABLET. PO SCH (08:09)
[2020-06-15] MEDS: FUROSEMIDE 40 MG TABLET PO SCH (08:10)
[2020-06-15] MEDS: MULTIVITAMIN with MINERAL TABLET. PO SCH (08:10)
[2020-06-15] MEDS: POTASSIUM CHLORIDE 10 MEQ TABLET.ER. PO SCH (08:10)
[2020-06-15] MEDS: risperiDONE 0.5 MG TABLET. PO SCH ×3 (08:10→20:20)
[2020-06-15] MEDS: GABAPENTIN 100 MG CAPSULE. PO SCH ×3 (08:10→20:19)
[2020-06-15] MEDS: DOCUSATE SODIUM 100 MG CAPSULE PO SCH ×2 (08:10→20:20)
[2020-06-15] MEDS: TAMSULOSIN 0.4 MG CAP.ER.24H. PO SCH (08:10)
[2020-06-15] MEDS: buPROPion SR 100 MG TABLET.SA. PO SCH (08:10)
[2020-06-15] MEDS: LISINOPRIL 20 MG TABLET PO SCH (08:10)
[2020-06-15] MEDS: NICOTINE 21MG PATCH. TD SCH (08:11)
[2020-06-15] MEDS: DEMECLOCYCLINE HCL 150 MG TABLET. PO SCH ×2 (08:11→20:20)
[2020-06-15 16:13] VITALS: BP 118/75
--- NOTE | 2020-06-15 21:55 | PDOC ---
Exam Note: Rafael Note: Please also refer to the separate dictated note~for this date of service dictated separately.~Patient seen individually. Discussed the patient with Nursing staff reviewed the chart.~Reviewed interim history and current functioning. Reviewed vital signs,~Labs/ Radiology~and current medications noted below. Continue current treatment with the changes noted in the dictated addendum note Assessment: Vital Signs/I&O: Vital Signs Date Time Temp Pulse Resp B/P (MAP) Pulse Ox O2 Delivery O2 Flow Rate FiO2 06/15/20 16:13 97.5 100 19 118/75 (89) 97 Room Air I & O 06/14/20 06/14/20 06/15/20 15:00 23:00 07:00 Intake Total 960 ml 600 ml Balance 960 ml 600 ml Labs: Laboratory Tests Test 06/15/20 07:27 Glucose (Fingerstick) 109 mg/dL (70-99) H Current Medications: Meds: Laboratory Tests Test 06/15/20 07:27 Glucose (Fingerstick) 109 mg/dL Current Medications Medications (Trade) Dose Ordered Sig/Rober Route PRN Reason Start Time Stop Time Status Last Admin Dose Admin Acetaminophen (Tylenol) 650 mg PRN Q6HRS PRN PO MILD PAIN / TEMP > 100.3'F 05/30/20 15:45 Multi-Ingredient Ointment (Analgesic [place]) 1 muriel PRN QID PRN TP MUSCLE PAIN 05/30/20 15:45 Al Hydroxide/Mg Hydroxide (Mylanta Plus Xs) 15 ml PRN AFTMEALHC PRN PO DYSPEPSIA 05/30/20 15:45 Magnesium Hydroxide (Milk Of Magnesia) 2,400 mg PRN QHS PRN PO CONSTIPATION 05/30/20 15:45 Nicotine (Nicoderm Cq 21mg Patch) 1 patch DAILY TD 05/30/20 16:30 06/15/20 08:11 Aspirin (Aspirin Enteric Coated) 81 mg DAILY PO 05/31/20 09:00 06/15/20 08:08 Bupropion HCl (Wellbutrin Sr) 200 mg DAILY PO 05/31/20 09:00 06/15/20 08:10 Docusate Sodium (Colace) 100 mg BID PO 05/30/20 21:00 06/15/20 20:20 Furosemide (Lasix) 40 mg DAILY PO 05/31/20 09:00 06/15/20 08:10 Gabapentin (Neurontin) 100 mg TID PO 05/30/20 21:00 06/15/20 20:19 Levothyroxine Sodium (Synthroid) 100 mcg DAILY06 PO 05/31/20 06:00 06/15/20 06:20 Lisinopril (Prinivil) 5 mg DAILY PO 05/31/20 09:00 06/15/20 08:09 Lisinopril (Prinivil) 20 mg DAILY PO 05/31/20 09:00 06/15/20 08:10 Metformin HCl (Glucophage) 500 mg BIDWMEALS PO 05/30/20 17:00 05/30/20 17:56 DC Neomycin Sulfate (Neomycin Sulfate) 4,000 mg DAILY PO 05/31/20 09:00 05/31/20 13:21 DC Paliperidone Palmitate (Invega Sustenna) 234 mg QMONTH IM 06/11/20 09:00 06/11/20 08:36 Risperidone (RisperDAL) 0.5 mg TID PO 05/30/20 21:00 06/15/20 20:20 Spironolactone (Aldactone) 25 mg DAILY PO 05/31/20 09:00 06/15/20 08:08 Tamsulosin HCl (Flomax) 0.4 mg DAILY PO 05/31/20 09:00 06/15/20 08:10 Vitamin D (Vitamin D3) 2,000 unit DAILY PO 05/31/20 09:00 06/15/20 08:08 Non-Formulary Medication (Medroxyprogesterone Acetate (Depo-Provera)) 1 ml Q2WKS IM 06/02/20 09:00 06/02/20 10:08 DC Multivitamins/ Calcium (Thera-M Plus) 1 tab DAILY PO 05/31/20 09:00 06/15/20 08:10 Pantoprazole Sodium (Protonix) 40 mg DAILYAC PO 05/31/20 07:30 06/15/20 08:08 Oxcarbazepine (Trileptal) 600 mg DAILY PO 05/31/20 09:00 06/15/20 08:09 Potassium Chloride (Klor-Con) 10 meq DAILYWBKFT PO 05/31/20 08:00 06/15/20 08:10 Demeclocycline HCl (Declomycin) 300 mg BID PO 05/30/20 21:00 06/15/20 20:20 Sodium Chloride (Sodium Chloride Tab) 2 gm BID PO 05/30/20 21:00 06/15/20 20:20 Medroxyprogesterone Acetate (Depo-Provera Im) 150 mg Q2WKS IM 06/02/20 10:15 06/02/20 10:15 I have reviewed the current psychotropics carefully including drug interactions. Risk benefit ratio favors no change other than as noted in my dictated progress note. Diagnosis: Problems: (1) Bipolar disorder, current episode mixed, severe, with psychotic features (2) Anxiety disorder (3) Impulse control disorder (4) Schizoaffective disorder, bipolar type (5) Schizoaffective disorder, chronic condition with acute exacerbation LEONARD ASHFORD MD Jun 15, 2020 21:55
[2020-06-16] MEDS: LEVOTHYROXINE 100 MCG TABLET PO SCH (05:22)
[2020-06-16 06:44] VITALS: BP 105/77
--- NOTE | 2020-06-16 07:34 | PDOC ---
Exam Note: Rafael Note: This note is a late entry for 06/15/2020 covers elements not covered in my initial note. Subjective: The patient was seen individually in the evening of 06/15/2020 with Eddie PERSAUD, discussed and reviewed the chart. The patient slept 7 hours previous night. I met with the patient in his room. He is pleasant, cooperative. No sexually inappropriate or disruptive behaviors noted per nursing report. During the individual visit we discussed discharge for Wednesday and he was quite specific on what time he expects to leave here and we addressed this at some length. Review of Systems: No CV, , pulmonary, eye system symptoms on review. Mental Status Exam: The patient is reasonably oriented. Speech coherent. Often response is monosyllabic. Abstraction is fair. Computation impaired. Attention span is short. Language function intact. Mood and affect withdrawn. Laboratory Data: Reviewed. Impression: Schizoaffective disorder bipolar type, mixed with psychotic features, in partial remission. Anxiety disorder unspecified. Impulse control disorder unspecified. Plan: No change from initial note. Assessment: Vital Signs/I&O: Vital Signs Date Time Temp Pulse Resp B/P (MAP) Pulse Ox O2 Delivery O2 Flow Rate FiO2 06/16/20 06:44 97.4 78 22 105/77 (86) 96 06/15/20 16:13 Room Air I & O 06/15/20 06/15/20 06/16/20 15:00 23:00 07:00 Intake Total 840 ml 480 ml Balance 840 ml 480 ml Labs: Laboratory Tests Test 06/16/20 07:23 Glucose (Fingerstick) 116 mg/dL (70-99) H Current Medications: Meds: Laboratory Tests Test 06/16/20 07:23 Glucose (Fingerstick) 116 mg/dL Current Medications Medications (Trade) Dose Ordered Sig/Rober Route PRN Reason Start Time Stop Time Status Last Admin Dose Admin Acetaminophen (Tylenol) 650 mg PRN Q6HRS PRN PO MILD PAIN / TEMP > 100.3'F 05/30/20 15:45 Multi-Ingredient Ointment (Analgesic [place]) 1 muriel PRN QID PRN TP MUSCLE PAIN 05/30/20 15:45 Al Hydroxide/Mg Hydroxide (Mylanta Plus Xs) 15 ml PRN AFTMEALHC PRN PO DYSPEPSIA 05/30/20 15:45 Magnesium Hydroxide (Milk Of Magnesia) 2,400 mg PRN QHS PRN PO CONSTIPATION 05/30/20 15:45 06/16/20 05:23 Nicotine (Nicoderm Cq 21mg Patch) 1 patch DAILY TD 05/30/20 16:30 06/15/20 08:11 Aspirin (Aspirin Enteric Coated) 81 mg DAILY PO 05/31/20 09:00 06/15/20 08:08 Bupropion HCl (Wellbutrin Sr) 200 mg DAILY PO 05/31/20 09:00 06/15/20 08:10 Docusate Sodium (Colace) 100 mg BID PO 05/30/20 21:00 06/15/20 20:20 Furosemide (Lasix) 40 mg DAILY PO 05/31/20 09:00 06/15/20 08:10 Gabapentin (Neurontin) 100 mg TID PO 05/30/20 21:00 06/15/20 20:19 Levothyroxine Sodium (Synthroid) 100 mcg DAILY06 PO 05/31/20 06:00 06/16/20 05:22 Lisinopril (Prinivil) 5 mg DAILY PO 05/31/20 09:00 06/15/20 08:09 Lisinopril (Prinivil) 20 mg DAILY PO 05/31/20 09:00 06/15/20 08:10 Metformin HCl (Glucophage) 500 mg BIDWMEALS PO 05/30/20 17:00 05/30/20 17:56 DC Neomycin Sulfate (Neomycin Sulfate) 4,000 mg DAILY PO 05/31/20 09:00 05/31/20 13:21 DC Paliperidone Palmitate (Invega Sustenna) 234 mg QMONTH IM 06/11/20 09:00 06/11/20 08:36 Risperidone (RisperDAL) 0.5 mg TID PO 05/30/20 21:00 06/15/20 20:20 Spironolactone (Aldactone) 25 mg DAILY PO 05/31/20 09:00 06/15/20 08:08 Tamsulosin HCl (Flomax) 0.4 mg DAILY PO 05/31/20 09:00 06/15/20 08:10 Vitamin D (Vitamin D3) 2,000 unit DAILY PO 05/31/20 09:00 06/15/20 08:08 Non-Formulary Medication (Medroxyprogesterone Acetate (Depo-Provera)) 1 ml Q2WKS IM 06/02/20 09:00 06/02/20 10:08 DC Multivitamins/ Calcium (Thera-M Plus) 1 tab DAILY PO 05/31/20 09:00 06/15/20 08:10 Pantoprazole Sodium (Protonix) 40 mg DAILYAC PO 05/31/20 07:30 06/15/20 08:08 Oxcarbazepine (Trileptal) 600 mg DAILY PO 05/31/20 09:00 06/15/20 08:09 Potassium Chloride (Klor-Con) 10 meq DAILYWBKFT PO 05/31/20 08:00 06/15/20 08:10 Demeclocycline HCl (Declomycin) 300 mg BID PO 05/30/20 21:00 06/15/20 20:20 Sodium Chloride (Sodium Chloride Tab) 2 gm BID PO 05/30/20 21:00 06/15/20 20:20 Medroxyprogesterone Acetate (Depo-Provera Im) 150 mg Q2WKS IM 06/02/20 10:15 06/02/20 10:15 I have reviewed the current psychotropics carefully including drug interactions. Risk benefit ratio favors no change other than as noted in my dictated progress note. Diagnosis: Problems: (1) Bipolar disorder, current episode mixed, severe, with psychotic features (2) Anxiety disorder (3) Impulse control disorder (4) Schizoaffective disorder, bipolar type (5) Schizoaffective disorder, chronic condition with acute exacerbation LEONARD ASHFORD MD Jun 16, 2020 07:33
[2020-06-16] MEDS: buPROPion SR 100 MG TABLET.SA. PO SCH (08:05)
[2020-06-16] MEDS: DEMECLOCYCLINE HCL 150 MG TABLET. PO SCH ×2 (08:05→20:20)
[2020-06-16] MEDS: NICOTINE 21MG PATCH. TD SCH (08:06)
[2020-06-16] MEDS: SODIUM CHLORIDE 1 GM TABLET PO SCH ×2 (08:06→20:20)
[2020-06-16] MEDS: FUROSEMIDE 40 MG TABLET PO SCH (08:07)
[2020-06-16] MEDS: risperiDONE 0.5 MG TABLET. PO SCH ×3 (08:07→20:19)
[2020-06-16] MEDS: MULTIVITAMIN with MINERAL TABLET. PO SCH (08:07)
[2020-06-16] MEDS: GABAPENTIN 100 MG CAPSULE. PO SCH ×3 (08:07→20:20)
[2020-06-16] MEDS: LISINOPRIL 5 MG TABLET. PO SCH (08:08)
[2020-06-16] MEDS: DOCUSATE SODIUM 100 MG CAPSULE PO SCH ×2 (08:08→20:19)
[2020-06-16] MEDS: ASPIRIN ENTERIC COATED 81 MG TABLET.DR. PO SCH (08:09)
[2020-06-16] MEDS: PANTOPRAZOLE 40 MG TABLET. PO SCH (08:09)
[2020-06-16] MEDS: POTASSIUM CHLORIDE 10 MEQ TABLET.ER. PO SCH (08:09)
[2020-06-16] MEDS: LISINOPRIL 20 MG TABLET PO SCH (08:09)
[2020-06-16] MEDS: TAMSULOSIN 0.4 MG CAP.ER.24H. PO SCH (08:09)
[2020-06-16] MEDS: CHOLECALCIFEROL (VITAMIN D3) 1,000 UNIT TABLET PO SCH (08:10)
[2020-06-16] MEDS: SPIRONOLACTONE 25 MG TABLET PO SCH (08:10)
[2020-06-16] MEDS: medroxyPROGESTERone IM 150 MG/ML VIAL. IM SCH (09:34)
[2020-06-16 16:07] VITALS: BP 130/82
--- NOTE | 2020-06-16 22:02 | PDOC ---
Exam Note: Rafael Note: Please also refer to the separate dictated note~for this date of service dictated separately.~Patient seen individually. Discussed the patient with Nursing staff reviewed the chart.~Reviewed interim history and current functioning. Reviewed vital signs,~Labs/ Radiology~and current medications noted below. Continue current treatment with the changes noted in the dictated addendum note Assessment: Vital Signs/I&O: Vital Signs Date Time Temp Pulse Resp B/P (MAP) Pulse Ox O2 Delivery O2 Flow Rate FiO2 06/16/20 16:07 97.2 92 18 130/82 (98) 97 06/15/20 16:13 Room Air I & O 06/15/20 06/15/20 06/16/20 15:00 23:00 07:00 Intake Total 840 ml 480 ml Balance 840 ml 480 ml Labs: Laboratory Tests Test 06/16/20 07:23 Glucose (Fingerstick) 116 mg/dL (70-99) H Current Medications: Meds: Laboratory Tests Test 06/16/20 07:23 Glucose (Fingerstick) 116 mg/dL Current Medications Medications (Trade) Dose Ordered Sig/Rober Route PRN Reason Start Time Stop Time Status Last Admin Dose Admin Acetaminophen (Tylenol) 650 mg PRN Q6HRS PRN PO MILD PAIN / TEMP > 100.3'F 05/30/20 15:45 Multi-Ingredient Ointment (Analgesic [place]) 1 muriel PRN QID PRN TP MUSCLE PAIN 05/30/20 15:45 Al Hydroxide/Mg Hydroxide (Mylanta Plus Xs) 15 ml PRN AFTMEALHC PRN PO DYSPEPSIA 05/30/20 15:45 Magnesium Hydroxide (Milk Of Magnesia) 2,400 mg PRN QHS PRN PO CONSTIPATION 05/30/20 15:45 06/16/20 05:23 Nicotine (Nicoderm Cq 21mg Patch) 1 patch DAILY TD 05/30/20 16:30 06/16/20 08:06 Aspirin (Aspirin Enteric Coated) 81 mg DAILY PO 05/31/20 09:00 06/16/20 08:09 Bupropion HCl (Wellbutrin Sr) 200 mg DAILY PO 05/31/20 09:00 06/16/20 08:05 Docusate Sodium (Colace) 100 mg BID PO 05/30/20 21:00 06/16/20 20:19 Furosemide (Lasix) 40 mg DAILY PO 05/31/20 09:00 06/16/20 08:07 Gabapentin (Neurontin) 100 mg TID PO 05/30/20 21:00 06/16/20 20:20 Levothyroxine Sodium (Synthroid) 100 mcg DAILY06 PO 05/31/20 06:00 06/16/20 05:22 Lisinopril (Prinivil) 5 mg DAILY PO 05/31/20 09:00 06/16/20 08:08 Lisinopril (Prinivil) 20 mg DAILY PO 05/31/20 09:00 06/16/20 08:09 Metformin HCl (Glucophage) 500 mg BIDWMEALS PO 05/30/20 17:00 05/30/20 17:56 DC Neomycin Sulfate (Neomycin Sulfate) 4,000 mg DAILY PO 05/31/20 09:00 05/31/20 13:21 DC Paliperidone Palmitate (Invega Sustenna) 234 mg QMONTH IM 06/11/20 09:00 06/11/20 08:36 Risperidone (RisperDAL) 0.5 mg TID PO 05/30/20 21:00 06/16/20 20:19 Spironolactone (Aldactone) 25 mg DAILY PO 05/31/20 09:00 06/16/20 08:10 Tamsulosin HCl (Flomax) 0.4 mg DAILY PO 05/31/20 09:00 06/16/20 08:09 Vitamin D (Vitamin D3) 2,000 unit DAILY PO 05/31/20 09:00 06/16/20 08:10 Non-Formulary Medication (Medroxyprogesterone Acetate (Depo-Provera)) 1 ml Q2WKS IM 06/02/20 09:00 06/02/20 10:08 DC Multivitamins/ Calcium (Thera-M Plus) 1 tab DAILY PO 05/31/20 09:00 06/16/20 08:07 Pantoprazole Sodium (Protonix) 40 mg DAILYAC PO 05/31/20 07:30 06/16/20 08:09 Oxcarbazepine (Trileptal) 600 mg DAILY PO 05/31/20 09:00 06/16/20 08:07 Potassium Chloride (Klor-Con) 10 meq DAILYWBKFT PO 05/31/20 08:00 06/16/20 08:09 Demeclocycline HCl (Declomycin) 300 mg BID PO 05/30/20 21:00 06/16/20 20:20 Sodium Chloride (Sodium Chloride Tab) 2 gm BID PO 05/30/20 21:00 06/16/20 20:20 Medroxyprogesterone Acetate (Depo-Provera Im) 150 mg Q2WKS IM 06/02/20 10:15 06/16/20 09:34 I have reviewed the current psychotropics carefully including drug interactions. Risk benefit ratio favors no change other than as noted in my dictated progress note. Diagnosis: Problems: (1) Bipolar disorder, current episode mixed, severe, with psychotic features (2) Anxiety disorder (3) Impulse control disorder (4) Schizoaffective disorder, bipolar type (5) Schizoaffective disorder, chronic condition with acute exacerbation LEONARD ASHOFRD MD Jun 16, 2020 22:02
[2020-06-17] MEDS: LEVOTHYROXINE 100 MCG TABLET PO SCH (05:40)
[2020-06-17 06:25] VITALS: BP 102/71
--- NOTE | 2020-06-17 06:30 | PDOC ---
Exam Note: Rafael Note: This note is a late entry for 06/16/2020 covers elements not covered in my initial note. Subjective: The patient was seen individually in the evening of 06/16/2020 with Adriana PERSAUD, discussed and reviewed the chart. The patient slept 5-3/4 hours previous night. He remains somewhat withdrawn, spends much time in his room but he has not been cursing, aggressive, or disruptive, which is what prompted this admission. He has also not shown any sexually inappropriate behaviors. He was lying in bed as I met with him and we discussed discharge plans for tomorrow. Review of Systems: No CV, , pulmonary, eye system symptoms on review. Mental Status Exam: The patient is reasonably oriented. Speech coherent. Often response is monosyllabic. Abstraction is fair. Computation impaired. Attention span is short. Language function intact. Mood and affect withdrawn. Laboratory Data: Reviewed. Impression: Schizoaffective disorder bipolar type, mixed with psychotic features, in partial remission. Anxiety disorder unspecified. Impulse control disorder unspecified. Plan: No change from initial note. Tentative discharge back to halfway tomorrow 06/17/20. Assessment: Vital Signs/I&O: Vital Signs Date Time Temp Pulse Resp B/P (MAP) Pulse Ox O2 Delivery O2 Flow Rate FiO2 06/17/20 06:25 97.3 90 16 102/71 (81) 96 06/15/20 16:13 Room Air I & O 06/16/20 06/16/20 06/17/20 14:59 22:59 06:59 Intake Total 600 ml 480 ml Balance 600 ml 480 ml Labs: Laboratory Tests Test 06/16/20 07:23 Glucose (Fingerstick) 116 mg/dL (70-99) H Current Medications: Meds: Laboratory Tests Test 06/16/20 07:23 Glucose (Fingerstick) 116 mg/dL Current Medications Medications (Trade) Dose Ordered Sig/Rober Route PRN Reason Start Time Stop Time Status Last Admin Dose Admin Acetaminophen (Tylenol) 650 mg PRN Q6HRS PRN PO MILD PAIN / TEMP > 100.3'F 05/30/20 15:45 Multi-Ingredient Ointment (Analgesic [place]) 1 muriel PRN QID PRN TP MUSCLE PAIN 05/30/20 15:45 Al Hydroxide/Mg Hydroxide (Mylanta Plus Xs) 15 ml PRN AFTMEALHC PRN PO DYSPEPSIA 05/30/20 15:45 Magnesium Hydroxide (Milk Of Magnesia) 2,400 mg PRN QHS PRN PO CONSTIPATION 05/30/20 15:45 06/16/20 05:23 Nicotine (Nicoderm Cq 21mg Patch) 1 patch DAILY TD 05/30/20 16:30 06/16/20 08:06 Aspirin (Aspirin Enteric Coated) 81 mg DAILY PO 05/31/20 09:00 06/16/20 08:09 Bupropion HCl (Wellbutrin Sr) 200 mg DAILY PO 05/31/20 09:00 06/16/20 08:05 Docusate Sodium (Colace) 100 mg BID PO 05/30/20 21:00 06/16/20 20:19 Furosemide (Lasix) 40 mg DAILY PO 05/31/20 09:00 06/16/20 08:07 Gabapentin (Neurontin) 100 mg TID PO 05/30/20 21:00 06/16/20 20:20 Levothyroxine Sodium (Synthroid) 100 mcg DAILY06 PO 05/31/20 06:00 06/17/20 05:40 Lisinopril (Prinivil) 5 mg DAILY PO 05/31/20 09:00 06/16/20 08:08 Lisinopril (Prinivil) 20 mg DAILY PO 05/31/20 09:00 06/16/20 08:09 Metformin HCl (Glucophage) 500 mg BIDWMEALS PO 05/30/20 17:00 05/30/20 17:56 DC Neomycin Sulfate (Neomycin Sulfate) 4,000 mg DAILY PO 05/31/20 09:00 05/31/20 13:21 DC Paliperidone Palmitate (Invega Sustenna) 234 mg QMONTH IM 06/11/20 09:00 06/11/20 08:36 Risperidone (RisperDAL) 0.5 mg TID PO 05/30/20 21:00 06/16/20 20:19 Spironolactone (Aldactone) 25 mg DAILY PO 05/31/20 09:00 06/16/20 08:10 Tamsulosin HCl (Flomax) 0.4 mg DAILY PO 05/31/20 09:00 06/16/20 08:09 Vitamin D (Vitamin D3) 2,000 unit DAILY PO 05/31/20 09:00 06/16/20 08:10 Non-Formulary Medication (Medroxyprogesterone Acetate (Depo-Provera)) 1 ml Q2WKS IM 06/02/20 09:00 06/02/20 10:08 DC Multivitamins/ Calcium (Thera-M Plus) 1 tab DAILY PO 05/31/20 09:00 06/16/20 08:07 Pantoprazole Sodium (Protonix) 40 mg DAILYAC PO 05/31/20 07:30 06/16/20 08:09 Oxcarbazepine (Trileptal) 600 mg DAILY PO 05/31/20 09:00 06/16/20 08:07 Potassium Chloride (Klor-Con) 10 meq DAILYWBKFT PO 05/31/20 08:00 06/16/20 08:09 Demeclocycline HCl (Declomycin) 300 mg BID PO 05/30/20 21:00 06/16/20 20:20 Sodium Chloride (Sodium Chloride Tab) 2 gm BID PO 05/30/20 21:00 06/16/20 20:20 Medroxyprogesterone Acetate (Depo-Provera Im) 150 mg Q2WKS IM 06/02/20 10:15 06/16/20 09:34 I have reviewed the current psychotropics carefully including drug interactions. Risk benefit ratio favors no change other than as noted in my dictated progress note. Diagnosis: Problems: (1) Bipolar disorder, current episode mixed, severe, with psychotic features (2) Anxiety disorder (3) Impulse control disorder (4) Schizoaffective disorder, bipolar type (5) Schizoaffective disorder, chronic condition with acute exacerbation LEONARD ASHFORD MD Jun 17, 2020 06:30
[2020-06-17] MEDS: NICOTINE 21MG PATCH. TD SCH (07:58)
[2020-06-17] MEDS: LISINOPRIL 5 MG TABLET. PO SCH (07:59)
[2020-06-17] MEDS: POTASSIUM CHLORIDE 10 MEQ TABLET.ER. PO SCH (07:59)
[2020-06-17] MEDS: MULTIVITAMIN with MINERAL TABLET. PO SCH (07:59)
[2020-06-17] MEDS: DEMECLOCYCLINE HCL 150 MG TABLET. PO SCH (08:00)
[2020-06-17] MEDS: risperiDONE 0.5 MG TABLET. PO SCH (08:00)
[2020-06-17] MEDS: FUROSEMIDE 40 MG TABLET PO SCH (08:00)
[2020-06-17] MEDS: TAMSULOSIN 0.4 MG CAP.ER.24H. PO SCH (08:00)
[2020-06-17] MEDS: CHOLECALCIFEROL (VITAMIN D3) 1,000 UNIT TABLET PO SCH (08:00)
[2020-06-17] MEDS: DOCUSATE SODIUM 100 MG CAPSULE PO SCH (08:00)
[2020-06-17] MEDS: GABAPENTIN 100 MG CAPSULE. PO SCH (08:00)
[2020-06-17] MEDS: buPROPion SR 100 MG TABLET.SA. PO SCH (08:00)
[2020-06-17] MEDS: SODIUM CHLORIDE 1 GM TABLET PO SCH (08:00)
[2020-06-17 08:01] VITALS: BP 102/71
[2020-06-17] MEDS: SPIRONOLACTONE 25 MG TABLET PO SCH (08:01)
[2020-06-17] MEDS: ASPIRIN ENTERIC COATED 81 MG TABLET.DR. PO SCH (08:01)
[2020-06-17] MEDS: LISINOPRIL 20 MG TABLET PO SCH (08:01)
[2020-06-17] MEDS: PANTOPRAZOLE 40 MG TABLET. PO SCH (08:01)
--- NOTE | 2020-06-17 22:14 | PDOC ---
Exam Note: Rafael Note: Please also refer to the separate dictated note~for this date of service dictated separately.~Patient seen individually. Discussed the patient with Nursing staff reviewed the chart.~Reviewed interim history and current functioning. Reviewed vital signs,~Labs/ Radiology~and current medications noted below. Continue current treatment with the changes noted in the dictated addendum note Assessment: Vital Signs/I&O: Vital Signs Date Time Temp Pulse Resp B/P (MAP) Pulse Ox O2 Delivery O2 Flow Rate FiO2 06/17/20 08:01 90 102/71 06/17/20 06:25 97.3 16 96 06/15/20 16:13 Room Air I & O 06/16/20 06/16/20 06/17/20 15:00 23:00 07:00 Intake Total 600 ml 480 ml Balance 600 ml 480 ml Labs: Laboratory Tests Test 06/17/20 07:31 Glucose (Fingerstick) 104 mg/dL (70-99) H Current Medications: Meds: Laboratory Tests Test 06/17/20 07:31 Glucose (Fingerstick) 104 mg/dL Current Medications Medications (Trade) Dose Ordered Sig/Rober Route PRN Reason Start Time Stop Time Status Last Admin Dose Admin Acetaminophen (Tylenol) 650 mg PRN Q6HRS PRN PO MILD PAIN / TEMP > 100.3'F 05/30/20 15:45 06/17/20 11:16 DC Multi-Ingredient Ointment (Analgesic [place]) 1 muriel PRN QID PRN TP MUSCLE PAIN 05/30/20 15:45 06/17/20 11:16 DC Al Hydroxide/Mg Hydroxide (Mylanta Plus Xs) 15 ml PRN AFTMEALHC PRN PO DYSPEPSIA 05/30/20 15:45 06/17/20 11:16 DC Magnesium Hydroxide (Milk Of Magnesia) 2,400 mg PRN QHS PRN PO CONSTIPATION 05/30/20 15:45 06/17/20 11:16 DC 06/16/20 05:23 Nicotine (Nicoderm Cq 21mg Patch) 1 patch DAILY TD 05/30/20 16:30 06/17/20 11:16 DC 06/17/20 07:58 Aspirin (Aspirin Enteric Coated) 81 mg DAILY PO 05/31/20 09:00 06/17/20 11:16 DC 06/17/20 08:01 Bupropion HCl (Wellbutrin Sr) 200 mg DAILY PO 05/31/20 09:00 06/17/20 11:16 DC 06/17/20 08:00 Docusate Sodium (Colace) 100 mg BID PO 05/30/20 21:00 06/17/20 11:16 DC 06/17/20 08:00 Furosemide (Lasix) 40 mg DAILY PO 05/31/20 09:00 06/17/20 11:16 DC 06/17/20 08:00 Gabapentin (Neurontin) 100 mg TID PO 05/30/20 21:00 06/17/20 11:16 DC 06/17/20 08:00 Levothyroxine Sodium (Synthroid) 100 mcg DAILY06 PO 05/31/20 06:00 06/17/20 11:16 DC 06/17/20 05:40 Lisinopril (Prinivil) 5 mg DAILY PO 05/31/20 09:00 06/17/20 11:16 DC 06/17/20 07:59 Lisinopril (Prinivil) 20 mg DAILY PO 05/31/20 09:00 06/17/20 11:16 DC 06/17/20 08:01 Metformin HCl (Glucophage) 500 mg BIDWMEALS PO 05/30/20 17:00 05/30/20 17:56 DC Neomycin Sulfate (Neomycin Sulfate) 4,000 mg DAILY PO 05/31/20 09:00 05/31/20 13:21 DC Paliperidone Palmitate (Invega Sustenna) 234 mg QMONTH IM 06/11/20 09:00 06/17/20 11:16 DC 06/11/20 08:36 Risperidone (RisperDAL) 0.5 mg TID PO 05/30/20 21:00 06/17/20 11:16 DC 06/17/20 08:00 Spironolactone (Aldactone) 25 mg DAILY PO 05/31/20 09:00 06/17/20 11:16 DC 06/17/20 08:01 Tamsulosin HCl (Flomax) 0.4 mg DAILY PO 05/31/20 09:00 06/17/20 11:16 DC 06/17/20 08:00 Vitamin D (Vitamin D3) 2,000 unit DAILY PO 05/31/20 09:00 06/17/20 11:16 DC 06/17/20 08:00 Non-Formulary Medication (Medroxyprogesterone Acetate (Depo-Provera)) 1 ml Q2WKS IM 06/02/20 09:00 06/02/20 10:08 DC Multivitamins/ Calcium (Thera-M Plus) 1 tab DAILY PO 05/31/20 09:00 06/17/20 11:16 DC 06/17/20 07:59 Pantoprazole Sodium (Protonix) 40 mg DAILYAC PO 05/31/20 07:30 06/17/20 11:16 DC 06/17/20 08:01 Oxcarbazepine (Trileptal) 600 mg DAILY PO 05/31/20 09:00 06/17/20 11:16 DC 06/17/20 07:59 Potassium Chloride (Klor-Con) 10 meq DAILYWBKFT PO 05/31/20 08:00 06/17/20 11:16 DC 06/17/20 07:59 Demeclocycline HCl (Declomycin) 300 mg BID PO 05/30/20 21:00 06/17/20 11:16 DC 06/17/20 08:00 Sodium Chloride (Sodium Chloride Tab) 2 gm BID PO 05/30/20 21:00 06/17/20 11:16 DC 06/17/20 08:00 Medroxyprogesterone Acetate (Depo-Provera Im) 150 mg Q2WKS IM 06/02/20 10:15 06/17/20 11:16 DC 06/16/20 09:34 I have reviewed the current psychotropics carefully including drug interactions. Risk benefit ratio favors no change other than as noted in my dictated progress note. Diagnosis: Problems: (1) Bipolar disorder, current episode mixed, severe, with psychotic features (2) Anxiety disorder (3) Impulse control disorder (4) Schizoaffective disorder, bipolar type (5) Schizoaffective disorder, chronic condition with acute exacerbation LEONARD ASHFORD MD Jun 17, 2020 22:14
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
== END 2020-06-17 11:00 | DRG 885 ==
LOC: GEROPSY 13:58
PROVIDERS: ADMIT Psychiatry & Neurology Psychiatry; ATTEND Psychiatry & Neurology Psychiatry
DX: F25.0 Schizoaffective disorder, bipolar type (principal); E03.9 Hypothyroidism, unspecified; E11.9 Type 2 diabetes mellitus without complications; F10.10 Alcohol abuse, uncomplicated; F63.9 Impulse disorder, unspecified; I10 Essential (primary) hypertension; J44.9 Chronic obstructive pulmonary disease, unspecified; M19.90 Unspecified osteoarthritis, unspecified site; R32 Unspecified urinary incontinence; Z79.899 Other long term (current) drug therapy; Z81.8 Family history of other mental and behavioral disorders; Z87.891 Personal history of nicotine dependence; K21.9 Gastro-esophageal reflux disease without esophagitis
CPT/HCPCS: 36415; 80053; 80061; 80164; 81001; 82140; 82306; 82607; 82947; 83036; 83540; 83550; 83735; 84436; 84443; 84480; 85025; 85379; 86592; 87077; 87086; 93005; 99406; J1050; J2426

== ENCOUNTER 2020-08-20 16:47 | Inpatient (IN) | payer MEDICARE, MEDICAID ==
[~2020-08-20] VITALS: Ht 193 cm; Wt 130.1 kg
[~2020-08-20 16:47] MED LIST changes: +ACET325T9 PO; -BACI1OIN5 TP; +BACI1PAC TP; +DEMECLOCYCLINE PO; +FURO-68 PO; +LISI-517 PO; +MAG-115 PO; +METF500T16 PO; +METH28OI2 TP; +MIRT-7 PO; -MIRT15TA3 PO; +NACL PO; +NEOM500T PO; +PALI234D IM; +POTA10TA5 PO; +RISP0.5T62 PO; +SPIR25TA5 PO; +sodium chloride tab PO
[2020-08-20 18:24] LABS: BASO % 0 % (0-3); EOS # 0.1 x10^3/uL (0.0-0.7); EOS % 1 % (0-3); HEMATOCRIT 39.6 % (39.0-53.0); HEMOGLOBIN 13.2 g/dL (13.0-17.5); LYMPH # 1.2 x10^3/uL (1.0-4.8); LYMPH % 11 % (24-48); MEAN CORPUSCULAR HEMOGLOBIN 31 pg (25-35); MEAN CORPUSCULAR HGB CONC 33 g/dL (31-37); MEAN CORPUSCULAR VOLUME 95 fL (79-100); MONO # 0.8 x10^3/uL (0.0-1.1); MONO % 7 % (0-9); NEUT % 81 % (31-73); PLATELET COUNT 235 x10^3/uL (140-400); RED BLOOD COUNT 4.19 x10^6/uL (4.30-5.70); RED CELL DISTRIBUTION WIDTH 15.3 % (11.5-14.5); WHITE BLOOD COUNT 11.2 x10^3/uL (4.0-11.0)
[2020-08-20] MEDS ORDERED: IV NORMAL SALINE 1,000ML 1,000 ML IV ONE (18:45)
[2020-08-20 18:51] LABS: ALBUMIN 3.6 g/dL (3.4-5.0); ALBUMIN/GLOBULIN RATIO 0.9 (1.0-1.7); CALCIUM 9.2 mg/dL (8.5-10.1); CREATININE 1.4 mg/dL (0.7-1.3); GFR 51.9; MAGNESIUM 1.7 mg/dL (1.8-2.4); POTASSIUM 4.3 mmol/L (3.5-5.1); TOTAL BILIRUBIN 0.2 mg/dL (0.2-1.0); TOTAL PROTEIN 7.4 g/dL (6.4-8.2)
[2020-08-20 18:56] LABS: ACETAMIN < 2.0 mcg/mL (10-30); SALIC < 2.8 mg/dL (2.8-20.0)
--- NOTE | 2020-08-20 19:08 | EKG ---
[address] [address] Test Date: 2020-08-20 Test Time: 18:21:18 Pat Name: JULIANE AYALA Department: Room: Gender: M Tile Conduit Layer: ZION : 1960 Requested By: BURT RAUSCH Order Number: [id number] Reading MD: Measurements Intervals [place] Rate: 81 P: 47 UT: 168 QRS: 95 QRSD: 80 T: 64 QT: 364 QTc: 423 Interpretive Statements SINUS RHYTHM RIGHTWARD AXIS NO SPECIFIC ECG ABNORMALITIES RI6.02 No previous ECG available for comparison
[2020-08-20] MEDS ORDERED: RISP1TAB88 PO (19:22)
[2020-08-20] MEDS ORDERED: METO25TA4 PO (19:22)
[2020-08-20] MEDS ORDERED: BUPR100T11 PO (19:22)
[2020-08-20] MEDS ORDERED: METF500T16 PO (19:22)
[2020-08-20] MEDS ORDERED: LISI30TA4 PO (19:22)
[2020-08-20] MEDS ORDERED: GUAI600T6 PO (19:22)
[2020-08-20] MEDS ORDERED: MAGN400T44 PO (19:22)
[2020-08-20] MEDS ORDERED: GUAI473L15 PO (19:22)
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
[2020-08-20] MEDS ORDERED: LORA2DIS2 IM (20:39)
[2020-08-20 20:46] LABS: BILIRUBIN,URINE NEG (NEG); CLARITY,URINE CLEAR; COLOR,URINE YELLOW; GLUCOSE,URINE NEG (NEG)
[2020-08-20 20:47] LABS: NITRITE,URINE NEG (NEG); UROBILINOGEN,URINE 0.2 mg/dL (0.2 mg/dL)
[2020-08-20 20:48] LABS: BACTERIA,URINE 0 /HPF (0-FEW); RBC,URINE RARE /HPF (0-2); SQUAMOUS EPITHELIAL CELL,UR OCC /LPF; WBC,URINE 0 /HPF (0-4)
[2020-08-20] MEDS ORDERED: GUAI100L34 PO (22:54)
[2020-08-20] MEDS ORDERED: guaiFENesin 300 MG/15 ML LIQUID PO PRN (23:00)
[2020-08-20] MEDS ORDERED: MAG HYDROX/AL HYDROX/SIMETH 30 ML ORAL.SUSP PO PRN (23:00)
[2020-08-20] MEDS ORDERED: ACETAMINOPHEN 325 MG TABLET PO PRN (23:00)
[2020-08-20] MEDS ORDERED: METHYL SALICYLATE/MENTHOL TOPICAL OINTMENT 57GM TUBE. TP PRN (23:00)
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
[2020-08-20] MEDS ORDERED: guaiFENesin/CODEINE 100mg/10mg 5 ML LIQUID PO PRN (23:15)
[2020-08-20 23:57] VITALS: BP 132/85
[2020-08-21] MEDS ORDERED: risperiDONE 1 MG TABLET. PO PRN (00:45)
[2020-08-21 05:53] VITALS: BP 95/69
[2020-08-21] MEDS: LEVOTHYROXINE 100 MCG TABLET PO SCH (05:59)
[2020-08-21] MEDS ORDERED: LISINOPRIL 5 MG TABLET. PO SCH (09:00)
[2020-08-21] MEDS ORDERED: risperiDONE 1 MG TABLET. PO SCH (09:00)
[2020-08-21] MEDS: MAGNESIUM OXIDE 400 MG TABLET PO SCH (09:00)
[2020-08-21] MEDS: SODIUM CHLORIDE 1 GM TABLET PO SCH ×2 (09:00→20:41)
[2020-08-21] MEDS: CHOLECALCIFEROL (VITAMIN D3) 1,000 UNIT TABLET PO SCH (09:00)
[2020-08-21] MEDS: DEMECLOCYCLINE HCL 150 MG TABLET. PO SCH ×2 (09:00→20:40)
[2020-08-21] MEDS: NICOTINE 21MG PATCH. TD SCH (10:08)
[2020-08-21] MEDS: MULTIVITAMIN with MINERAL TABLET. PO SCH (10:10)
[2020-08-21] MEDS: buPROPion 100 MG TABLET. PO SCH ×2 (10:10→20:40)
[2020-08-21] MEDS: ASPIRIN ENTERIC COATED 81 MG TABLET.DR. PO SCH (10:10)
[2020-08-21] MEDS: metFORMIN 500 MG TABLET PO SCH ×2 (10:10→17:10)
[2020-08-21] MEDS: SPIRONOLACTONE 25 MG TABLET PO SCH (10:11)
[2020-08-21] MEDS: POTASSIUM CHLORIDE 10 MEQ TABLET.ER. PO SCH (10:11)
[2020-08-21] MEDS: DOCUSATE SODIUM 100 MG CAPSULE PO SCH ×2 (10:11→20:41)
[2020-08-21] MEDS: risperiDONE 0.5 MG TABLET. PO SCH ×3 (10:11→20:41)
[2020-08-21] MEDS: PANTOPRAZOLE 40 MG TABLET. PO SCH (10:11)
[2020-08-21] MEDS: GABAPENTIN 100 MG CAPSULE. PO SCH ×3 (10:11→20:41)
[2020-08-21] MEDS: TAMSULOSIN 0.4 MG CAP.ER.24H. PO SCH (10:11)
[2020-08-21] MEDS: FUROSEMIDE 40 MG TABLET PO SCH (10:11)
[2020-08-21] MEDS: LISINOPRIL 10 MG TABLET PO SCH (10:14)
[2020-08-21] MEDS: METOPROLOL TART IMMED RELEASE 25 MG TABLET. PO SCH ×2 (10:15→20:41)
--- NOTE | 2020-08-21 13:15 | NUR ---
Nursing note: Client in bed room for morning medications & assessment, took pills whole. He denies SI/HI/VH/AH/AH/delusions at this time. Client reports 9/10 chronic back pain. He is calm, compliant, social with peers. He is currently in day room. Plan of care continues, will continue to monitor.
[2020-08-21 14:09] LABS: THYROXINE 7.8 ug/dL (4.5-12.0)
[2020-08-21 16:01] VITALS: BP 102/68
--- NOTE | 2020-08-21 16:11 | NUR ---
Patient has been provided with Practical Counseling for tobacco cessation. It included a face to face interaction and the following was discussed: Recognizing danger situations, Developing coping skills,Basic cessation information. Will follow for discharge needs and discharge planning.
[2020-08-21 19:08] LABS: THYROID STIM HORMONE (TSH) 1.499 uIU/mL (0.358-3.740)
--- NOTE | 2020-08-21 21:57 | PDOC ---
Exam Note: Rafael Note: Please also refer to the separate dictated note~for this date of service dictated separately.~Patient seen individually. Discussed the patient with Nursing staff reviewed the chart.~Reviewed interim history and current functioning. Reviewed vital signs,~Labs/ Radiology~and current medications noted below. Continue current treatment with the changes noted in the dictated addendum note Assessment: Vital Signs/I&O: Vital Signs Date Time Temp Pulse Resp B/P (MAP) Pulse Ox O2 Delivery O2 Flow Rate FiO2 08/21/20 20:41 90 102/68 08/21/20 16:01 97.1 18 100 08/20/20 23:57 Room Air 08/20/20 17:50 97.0 I & O 08/20/20 08/20/20 08/21/20 15:00 23:00 07:00 Intake Total 0 ml Balance 0 ml Labs: Laboratory Tests Test 08/21/20 05:50 D-Dimer (Xenia) 2.19 mg/L (0.00-0.50) H Current Medications: Meds: Current Medications Medications (Trade) Dose Ordered Sig/Rober Route PRN Reason Start Time Stop Time Status Last Admin Dose Admin Aspirin (Aspirin Enteric Coated) 81 mg DAILY PO 08/21/20 09:00 08/21/20 10:10 Docusate Sodium (Colace) 100 mg BID PO 08/21/20 09:00 08/21/20 20:41 Furosemide (Lasix) 40 mg DAILY PO 08/21/20 09:00 08/21/20 10:11 Gabapentin (Neurontin) 100 mg TID PO 08/21/20 09:00 08/21/20 20:41 Guaifenesin (Mucinex Er) 600 mg BID PO 08/21/20 09:00 08/21/20 20:41 Levothyroxine Sodium (Synthroid) 100 mcg DAILY06 PO 08/21/20 06:00 08/21/20 05:59 Lisinopril (Prinivil) 5 mg DAILY PO 08/21/20 09:00 08/21/20 16:16 DC 08/21/20 10:13 Metformin HCl (Glucophage) 500 mg BIDWMEALS PO 08/21/20 08:00 08/21/20 17:10 Metoprolol Tartrate (Lopressor) 12.5 mg BID PO 08/21/20 09:00 08/21/20 20:41 Spironolactone (Aldactone) 25 mg DAILY PO 08/21/20 09:00 08/21/20 10:11 Tamsulosin HCl (Flomax) 0.4 mg DAILY PO 08/21/20 09:00 08/21/20 10:11 Lisinopril (Prinivil) 30 mg DAILY PO 08/21/20 09:00 08/21/20 10:14 Magnesium Oxide (Magnesium Oxide) 400 mg DAILY PO 08/21/20 09:00 08/21/20 09:00 Multivitamins/ Calcium (Thera-M Plus) 1 tab DAILY PO 08/21/20 09:00 08/21/20 10:10 Pantoprazole Sodium (Protonix) 40 mg DAILYAC PO 08/21/20 07:30 08/21/20 10:11 Potassium Chloride (Klor-Con) 10 meq DAILYWBKFT PO 08/21/20 08:00 08/21/20 10:11 Demeclocycline HCl (Declomycin) 300 mg Q12HR PO 08/21/20 09:00 08/21/20 20:40 Sodium Chloride (Sodium Chloride Tab) 2 gm BID PO 08/21/20 09:00 08/21/20 20:41 Bupropion HCl (Wellbutrin) 200 mg BID PO 08/21/20 09:00 08/21/20 20:40 Risperidone (RisperDAL) 0.5 mg TID PO 08/21/20 09:00 08/21/20 20:41 Oxcarbazepine (Trileptal) 600 mg DAILY PO 08/21/20 09:00 08/21/20 10:10 Nicotine (Nicoderm Cq 21mg Patch) 1 patch DAILY TD 08/21/20 09:00 08/21/20 10:08 I have reviewed the current psychotropics carefully including drug interactions. Risk benefit ratio favors no change other than as noted in my dictated progress note. Diagnosis: Problems: (1) Bipolar disorder, current episode mixed, severe, with psychotic features (2) Anxiety disorder (3) Impulse control disorder (4) Schizophrenia, paranoid, chronic with acute exacerbation LEONARD ASHFORD MD Aug 21, 2020 21:57
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
[2020-08-21 23:11] LABS: HEMOGLOBIN A1C 6.9 % (4.8-5.6)
--- NOTE | 2020-08-22 00:21 | NUR ---
Pt sitting up in w/c in the day room when approached. Pt calm, pleasant, and interactive during encounter. Pt cooperative with assessment and compliant with medications administered whole. No agitation, aggression, or SIB noted thus far this shift.
[2020-08-22] MEDS: LEVOTHYROXINE 100 MCG TABLET PO SCH (05:36)
[2020-08-22 05:56] VITALS: BP 109/75
[2020-08-22] MEDS: MULTIVITAMIN with MINERAL TABLET. PO SCH (08:24)
[2020-08-22] MEDS: CHOLECALCIFEROL (VITAMIN D3) 1,000 UNIT TABLET PO SCH (08:24)
[2020-08-22] MEDS: DEMECLOCYCLINE HCL 150 MG TABLET. PO SCH ×2 (08:24→21:00)
[2020-08-22] MEDS: GABAPENTIN 100 MG CAPSULE. PO SCH ×3 (08:25→21:01)
[2020-08-22] MEDS: risperiDONE 0.5 MG TABLET. PO SCH ×3 (08:25→21:00)
[2020-08-22] MEDS: buPROPion 100 MG TABLET. PO SCH ×2 (08:25→21:00)
[2020-08-22] MEDS: PANTOPRAZOLE 40 MG TABLET. PO SCH (08:25)
[2020-08-22] MEDS: ASPIRIN ENTERIC COATED 81 MG TABLET.DR. PO SCH (08:25)
[2020-08-22] MEDS: metFORMIN 500 MG TABLET PO SCH ×2 (08:25→14:52)
[2020-08-22] MEDS: SODIUM CHLORIDE 1 GM TABLET PO SCH ×2 (08:26→21:01)
[2020-08-22] MEDS: LISINOPRIL 10 MG TABLET PO SCH (08:26)
[2020-08-22] MEDS: METOPROLOL TART IMMED RELEASE 25 MG TABLET. PO SCH ×2 (08:27→21:01)
[2020-08-22] MEDS: SPIRONOLACTONE 25 MG TABLET PO SCH (08:27)
[2020-08-22] MEDS: DOCUSATE SODIUM 100 MG CAPSULE PO SCH ×2 (08:27→21:00)
[2020-08-22] MEDS: TAMSULOSIN 0.4 MG CAP.ER.24H. PO SCH (08:28)
[2020-08-22] MEDS: NICOTINE 21MG PATCH. TD SCH (08:28)
[2020-08-22] MEDS: FUROSEMIDE 40 MG TABLET PO SCH (08:28)
[2020-08-22] MEDS: POTASSIUM CHLORIDE 10 MEQ TABLET.ER. PO SCH (08:28)
[2020-08-22] MEDS: MAGNESIUM OXIDE 400 MG TABLET PO SCH (08:29)
--- NOTE | 2020-08-22 08:31 | CONS ---
DATE OF CONSULTATION: 08/21/2020 ATTENDING PHYSICIAN: Dr. Ashford. We are asked to see this patient for medical consultation. HISTORY OF PRESENT ILLNESS: The patient is a 59-year-old gentleman well known to us from previous admission. He currently lives at [facility] outside of [place], [place]. ____ is his primary care doctor ____ at the long-term. He has had many admissions here, 7 by his ____. I just saw him most recently in May of 2020. He has been inappropriate with the young aides, yelling, agitated, throwing stuff in the hallways, threatening to kill staff, being aggressive. He has underlying schizoaffective disorder, bipolar disorder, hypertension, urinary retention, hypothyroidism, gastroesophageal reflux disease and diabetes mellitus. He is sent here again for adjustment of his medication. CURRENT MEDICATIONS: Include the following: Aspirin, BuSpar, cholecalciferol, docusate, Lasix, Neurontin, guaifenesin, Synthroid, lisinopril 30 mg p.o. daily, lorazepam, magnesium, Depo-Provera every 2 weeks, metformin, metoprolol, multivitamin, omeprazole, Trileptal, Invega, potassium, risperidone, Aldactone, Flomax and demeclocycline. ALLERGIES: He has allergies to BLUEBERRIES, exact reaction is unclear. No known drug allergies. SOCIAL HISTORY: He is a nonsmoker at this time. Questionable alcohol history. FAMILY HISTORY: Unobtainable. REVIEW OF SYSTEMS: Unobtainable due to the patient's mental state. PHYSICAL EXAMINATION: GENERAL: When I saw him, this is a calm gentleman who appears cooperative. VITAL SIGNS: Initial vital signs showed a blood pressure 135/80 mmHg. His pulse is 95 and regular. He is afebrile and his oxygen saturations are 98% on room air. HEENT: Head is without trauma. The pupils are reactive. The sclerae is nonicteric. The oropharynx is clear. No lesions. NECK: Supple. No bruits or stridor. LUNGS: Otherwise, clear to auscultation. CARDIOVASCULAR: Showed regular heart tones. No obvious gallops. Peripheral pulses palpable and full. ABDOMEN: Obese, protuberant. No organomegaly. Bowel sounds were normoactive. EXTREMITIES: Show trace edema. NEUROLOGIC: Function focally intact. Speech is fluent. PERTINENT LABORATORY STUDIES: His hemoglobin on admission was 13.2 g/dL with a white count of 11,200. Creatinine is 1.4 mg/dL, BUN is normal. Electrolytes all within normal range. Nonfasting blood sugar is 132 mg/dL. Cardiac enzymes were negative for coronary ischemia. ASSESSMENT: 1. This 59-year-old gentleman has been a previous patient here. He has underlying schizoaffective disorder with aggressive behavior. 2. Essential hypertension. 3. Hypothyroidism, on replacement. 4. Type 2 diabetes mellitus with controlled blood sugars. RECOMMENDATIONS: 1. I have reviewed his home meds and they should be continued as ordered. 2. This patient is stable from medical standpoint. Thank you again for asking us to see the patient for medical consultation and clearance. We shall gladly follow along closely during his inpatient care. We are familiar with him along his several previous admissions. YUMIKO/LUIS ANTONIO/VISHAL DR: Kelly TID: [id number] CC: LEONARD ASHFORD MD
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
--- NOTE | 2020-08-22 14:31 | NUR ---
NURSING NOTE: Pt is alert to self, location et situation. Can give year, but not date. Calm, cooperative with medications et treatments. Affect is interactive with others without being bright. No sexually inappropriate behavior noted thus far this shift. Utilizes wheelchair for mobility on unit, self transfers. Denies pain in any location. Does report that he has "started hearing voices again" states that it happens only in the morning and describes it as a line from a movie playing on a loop in his head. New orders for changing Trileptal from daily to TID.
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
[2020-08-22 16:16] VITALS: BP 99/65
--- NOTE | 2020-08-22 22:07 | PDOC ---
Exam Note: Rafael Note: Please also refer to the separate dictated note~for this date of service dictated separately.~Patient seen individually. Discussed the patient with Nursing staff reviewed the chart.~Reviewed interim history and current functioning. Reviewed vital signs,~Labs/ Radiology~and current medications noted below. Continue current treatment with the changes noted in the dictated addendum note Assessment: Vital Signs/I&O: Vital Signs Date Time Temp Pulse Resp B/P (MAP) Pulse Ox O2 Delivery O2 Flow Rate FiO2 08/22/20 21:01 88 99/65 08/22/20 16:16 98.1 19 95 Room Air 08/20/20 17:50 97.0 I & O 08/21/20 08/21/20 08/22/20 15:00 23:00 07:00 Intake Total 960 ml 660 ml 240 ml Balance 960 ml 660 ml 240 ml Current Medications: Meds: Current Medications Medications (Trade) Dose Ordered Sig/Rober Route PRN Reason Start Time Stop Time Status Last Admin Dose Admin Sodium Chloride 1,000 ml @ 1,000 mls/hr 1X ONCE IV 08/20/20 18:45 08/20/20 19:44 DC 08/20/20 19:19 Aspirin (Aspirin Enteric Coated) 81 mg DAILY PO 08/21/20 09:00 08/22/20 08:25 Docusate Sodium (Colace) 100 mg BID PO 08/21/20 09:00 08/22/20 21:00 Furosemide (Lasix) 40 mg DAILY PO 08/21/20 09:00 08/22/20 08:28 Gabapentin (Neurontin) 100 mg TID PO 08/21/20 09:00 08/22/20 21:01 Guaifenesin (Mucinex Er) 600 mg BID PO 08/21/20 09:00 08/22/20 21:00 Levothyroxine Sodium (Synthroid) 100 mcg DAILY06 PO 08/21/20 06:00 08/22/20 05:36 Lisinopril (Prinivil) 5 mg DAILY PO 08/21/20 09:00 08/21/20 16:16 DC 08/21/20 10:13 Metformin HCl (Glucophage) 500 mg BIDWMEALS PO 08/21/20 08:00 08/22/20 14:52 Metoprolol Tartrate (Lopressor) 12.5 mg BID PO 08/21/20 09:00 08/22/20 21:01 Spironolactone (Aldactone) 25 mg DAILY PO 08/21/20 09:00 08/22/20 08:27 Tamsulosin HCl (Flomax) 0.4 mg DAILY PO 08/21/20 09:00 08/22/20 08:28 Vitamin D (Vitamin D3) 2,000 unit DAILY PO 08/21/20 09:00 08/22/20 08:24 Guaifenesin/ Codeine Phosphate (Robitussin Ac) 10 ml PRN Q6HRS PRN PO COUGH 08/20/20 23:15 08/20/20 23:03 DC Lisinopril (Prinivil) 30 mg DAILY PO 08/21/20 09:00 08/22/20 08:26 Magnesium Oxide (Magnesium Oxide) 400 mg DAILY PO 08/21/20 09:00 08/22/20 08:29 Multivitamins/ Calcium (Thera-M Plus) 1 tab DAILY PO 08/21/20 09:00 08/22/20 08:24 Pantoprazole Sodium (Protonix) 40 mg DAILYAC PO 08/21/20 07:30 08/22/20 08:25 Potassium Chloride (Klor-Con) 10 meq DAILYWBKFT PO 08/21/20 08:00 08/22/20 08:28 Demeclocycline HCl (Declomycin) 300 mg Q12HR PO 08/21/20 09:00 08/22/20 21:00 Sodium Chloride (Sodium Chloride Tab) 2 gm BID PO 08/21/20 09:00 08/22/20 21:01 Bupropion HCl (Wellbutrin) 200 mg BID PO 08/21/20 09:00 08/22/20 21:00 Paliperidone Palmitate (Invega Sustenna) 234 mg QMONTH IM 09/19/20 09:00 Risperidone (RisperDAL) 0.5 mg TID PO 08/21/20 09:00 08/22/20 17:29 DC 08/22/20 14:00 Risperidone (RisperDAL) 1 mg DAILY PO 08/21/20 09:00 08/21/20 00:42 DC Medroxyprogesterone Acetate (Depo-Provera Im) 150 mg Q2WKS IM 09/03/20 09:00 Oxcarbazepine (Trileptal) 600 mg DAILY PO 08/21/20 09:00 08/22/20 11:10 DC 08/22/20 08:25 Olanzapine (ZyPREXA ZYDIS) 5 mg PRN Q2HR PRN PO PSYCHOSIS 08/20/20 23:00 Guaifenesin (Robitussin) 200 mg PRN Q4HRS PRN PO COUGH 08/20/20 23:00 Acetaminophen (Tylenol) 650 mg PRN Q6HRS PRN PO MILD PAIN / TEMP > 100.3'F 08/20/20 23:00 Multi-Ingredient Ointment (Analgesic [place]) 1 muriel PRN QID PRN TP MUSCLE PAIN 08/20/20 23:00 Al Hydroxide/Mg Hydroxide (Mylanta Plus Xs) 15 ml PRN AFTMEALHC PRN PO DYSPEPSIA 08/20/20 23:00 Magnesium Hydroxide (Milk Of Magnesia) 2,400 mg PRN QHS PRN PO CONSTIPATION 08/20/20 23:00 Nicotine (Nicoderm Cq 21mg Patch) 1 patch DAILY TD 08/21/20 09:00 08/22/20 08:28 Risperidone (RisperDAL) 1 mg PRN DAILY PRN PO Anxiety/Agitation 08/21/20 00:45 Oxcarbazepine (Trileptal) 300 mg [id number] PO 08/22/20 14:00 08/22/20 21:01 Risperidone (RisperDAL) 1 mg DAILY PO 08/23/20 09:00 Risperidone (RisperDAL) 0.5 mg 1400,2100 PO 08/22/20 21:00 08/22/20 21:00 Current Medications Medications (Trade) Dose Ordered Sig/Rober Route PRN Reason Start Time Stop Time Status Last Admin Dose Admin Oxcarbazepine (Trileptal) 300 mg [id number] PO 08/22/20 14:00 08/22/20 21:01 Risperidone (RisperDAL) 0.5 mg 1400,2100 PO 08/22/20 21:00 08/22/20 21:00 I have reviewed the current psychotropics carefully including drug interactions. Risk benefit ratio favors no change other than as noted in my dictated progress note. Diagnosis: Problems: (1) Bipolar disorder, current episode mixed, severe, with psychotic features (2) Anxiety disorder (3) Impulse control disorder (4) Schizoaffective disorder, bipolar type LEONARD ASHFORD MD Aug 22, 2020 22:07
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
[2020-08-23] MEDS: LEVOTHYROXINE 100 MCG TABLET PO SCH (05:15)
[2020-08-23 05:50] VITALS: BP 96/62
[2020-08-23] MEDS: NICOTINE 21MG PATCH. TD SCH (08:13)
[2020-08-23] MEDS: CHOLECALCIFEROL (VITAMIN D3) 1,000 UNIT TABLET PO SCH (08:14)
[2020-08-23] MEDS: MULTIVITAMIN with MINERAL TABLET. PO SCH (08:14)
[2020-08-23] MEDS: DOCUSATE SODIUM 100 MG CAPSULE PO SCH ×2 (08:14→20:23)
[2020-08-23] MEDS: SODIUM CHLORIDE 1 GM TABLET PO SCH ×2 (08:14→20:22)
[2020-08-23] MEDS: buPROPion 100 MG TABLET. PO SCH ×2 (08:14→20:23)
[2020-08-23] MEDS: DEMECLOCYCLINE HCL 150 MG TABLET. PO SCH ×2 (08:14→20:23)
[2020-08-23] MEDS: risperiDONE 1 MG TABLET. PO SCH ×2 (08:15→20:23)
[2020-08-23] MEDS: ASPIRIN ENTERIC COATED 81 MG TABLET.DR. PO SCH (08:15)
[2020-08-23] MEDS: GABAPENTIN 100 MG CAPSULE. PO SCH ×3 (08:15→20:23)
[2020-08-23] MEDS: FUROSEMIDE 40 MG TABLET PO SCH (08:15)
[2020-08-23] MEDS: metFORMIN 500 MG TABLET PO SCH ×2 (08:16→17:09)
[2020-08-23] MEDS: PANTOPRAZOLE 40 MG TABLET. PO SCH (08:16)
[2020-08-23] MEDS: TAMSULOSIN 0.4 MG CAP.ER.24H. PO SCH (08:16)
[2020-08-23] MEDS: POTASSIUM CHLORIDE 10 MEQ TABLET.ER. PO SCH (08:16)
[2020-08-23] MEDS: METOPROLOL TART IMMED RELEASE 25 MG TABLET. PO SCH ×2 (08:16→20:25)
[2020-08-23] MEDS: SPIRONOLACTONE 25 MG TABLET PO SCH (08:17)
[2020-08-23] MEDS: MAGNESIUM OXIDE 400 MG TABLET PO SCH (08:19)
[2020-08-23] MEDS: LISINOPRIL 10 MG TABLET PO SCH (08:22)
--- NOTE | 2020-08-23 09:42 | NUR ---
Pt has been appropriate this morning. He was present during breakfast and his appetite appears adequate. He is compliant with whole medications. Pt denies SI/HI at this time. He denies VH but states he is experiencing AH in the form of "voices." He states these voices are not threatening or commanding and states "it's as if someone stuck a microphone in my head." Pt does not appear to be distracted by the AH during the course of our assessment. During interactions he often dominates the conversation and displays flight of ideas. It is very difficult for this nurse to be a participant in conversations with him d/t this domination of the conversation. Pt A&Ox4. Plan of care continues, will pass to next shift.
--- NOTE | 2020-08-23 14:29 | NUR ---
Pt observed in the hallway with 2 patients who are primarily non-verbal and do not engage with others. Pt is talking for approx 10 minutes about random subjects and the non-verbal patients are wandering about him and not interacting with him in any capacity. Pt appears unable to read social cues from the individuals around him to realize that he is in a completely one sided conversation. After the non-verbal patients walked away pt (Devante) was alone in the hallway and he continued to talk out loud, this time to no one.
[2020-08-23] MEDS: risperiDONE 0.5 MG TABLET. PO SCH ×2 (14:42→19:30)
[2020-08-23 16:32] VITALS: BP 111/73
--- NOTE | 2020-08-23 22:02 | PDOC ---
Exam Note: Rafael Note: Please also refer to the separate dictated note~for this date of service dictated separately.~Patient seen individually. Discussed the patient with Nursing staff reviewed the chart.~Reviewed interim history and current functioning. Reviewed vital signs,~Labs/ Radiology~and current medications noted below. Continue current treatment with the changes noted in the dictated addendum note Assessment: Vital Signs/I&O: Vital Signs Date Time Temp Pulse Resp B/P (MAP) Pulse Ox O2 Delivery O2 Flow Rate FiO2 08/23/20 20:25 102 111/73 08/23/20 16:32 19 96 Room Air 08/23/20 05:50 97.4 08/20/20 17:50 97.0 I & O 08/22/20 08/22/20 08/23/20 15:00 23:00 07:00 Intake Total 840 ml 480 ml Balance 840 ml 480 ml Current Medications: Meds: Current Medications Medications (Trade) Dose Ordered Sig/Rober Route PRN Reason Start Time Stop Time Status Last Admin Dose Admin Sodium Chloride 1,000 ml @ 1,000 mls/hr 1X ONCE IV 08/20/20 18:45 08/20/20 19:44 DC 08/20/20 19:19 Aspirin (Aspirin Enteric Coated) 81 mg DAILY PO 08/21/20 09:00 08/23/20 08:15 Docusate Sodium (Colace) 100 mg BID PO 08/21/20 09:00 08/23/20 20:23 Furosemide (Lasix) 40 mg DAILY PO 08/21/20 09:00 08/23/20 08:15 Gabapentin (Neurontin) 100 mg TID PO 08/21/20 09:00 08/23/20 20:23 Guaifenesin (Mucinex Er) 600 mg BID PO 08/21/20 09:00 08/23/20 20:23 Levothyroxine Sodium (Synthroid) 100 mcg DAILY06 PO 08/21/20 06:00 08/23/20 05:15 Lisinopril (Prinivil) 5 mg DAILY PO 08/21/20 09:00 08/21/20 16:16 DC 08/21/20 10:13 Metformin HCl (Glucophage) 500 mg BIDWMEALS PO 08/21/20 08:00 08/23/20 17:09 Metoprolol Tartrate (Lopressor) 12.5 mg BID PO 08/21/20 09:00 08/23/20 20:25 Spironolactone (Aldactone) 25 mg DAILY PO 08/21/20 09:00 08/23/20 08:17 Tamsulosin HCl (Flomax) 0.4 mg DAILY PO 08/21/20 09:00 08/23/20 08:16 Vitamin D (Vitamin D3) 2,000 unit DAILY PO 08/21/20 09:00 08/23/20 08:14 Guaifenesin/ Codeine Phosphate (Robitussin Ac) 10 ml PRN Q6HRS PRN PO COUGH 08/20/20 23:15 08/20/20 23:03 DC Lisinopril (Prinivil) 30 mg DAILY PO 08/21/20 09:00 08/23/20 08:22 Magnesium Oxide (Magnesium Oxide) 400 mg DAILY PO 08/21/20 09:00 08/23/20 08:19 Multivitamins/ Calcium (Thera-M Plus) 1 tab DAILY PO 08/21/20 09:00 08/23/20 08:14 Pantoprazole Sodium (Protonix) 40 mg DAILYAC PO 08/21/20 07:30 08/23/20 08:16 Potassium Chloride (Klor-Con) 10 meq DAILYWBKFT PO 08/21/20 08:00 08/23/20 08:16 Demeclocycline HCl (Declomycin) 300 mg Q12HR PO 08/21/20 09:00 08/23/20 20:23 Sodium Chloride (Sodium Chloride Tab) 2 gm BID PO 08/21/20 09:00 08/23/20 20:22 Bupropion HCl (Wellbutrin) 200 mg BID PO 08/21/20 09:00 08/23/20 20:23 Paliperidone Palmitate (Invega Sustenna) 234 mg QMONTH IM 09/19/20 09:00 Risperidone (RisperDAL) 0.5 mg TID PO 08/21/20 09:00 08/22/20 17:29 DC 08/22/20 14:00 Risperidone (RisperDAL) 1 mg DAILY PO 08/21/20 09:00 08/21/20 00:42 DC Medroxyprogesterone Acetate (Depo-Provera Im) 150 mg Q2WKS IM 09/03/20 09:00 Oxcarbazepine (Trileptal) 600 mg DAILY PO 08/21/20 09:00 08/22/20 11:10 DC 08/22/20 08:25 Olanzapine (ZyPREXA ZYDIS) 5 mg PRN Q2HR PRN PO PSYCHOSIS 08/20/20 23:00 Guaifenesin (Robitussin) 200 mg PRN Q4HRS PRN PO COUGH 08/20/20 23:00 Acetaminophen (Tylenol) 650 mg PRN Q6HRS PRN PO MILD PAIN / TEMP > 100.3'F 08/20/20 23:00 Multi-Ingredient Ointment (Analgesic [place]) 1 muriel PRN QID PRN TP MUSCLE PAIN 08/20/20 23:00 Al Hydroxide/Mg Hydroxide (Mylanta Plus Xs) 15 ml PRN AFTMEALHC PRN PO DYSPEPSIA 08/20/20 23:00 Magnesium Hydroxide (Milk Of Magnesia) 2,400 mg PRN QHS PRN PO CONSTIPATION 08/20/20 23:00 Nicotine (Nicoderm Cq 21mg Patch) 1 patch DAILY TD 08/21/20 09:00 08/23/20 08:13 Risperidone (RisperDAL) 1 mg PRN DAILY PRN PO Anxiety/Agitation 08/21/20 00:45 Oxcarbazepine (Trileptal) 300 mg [id number] PO 08/22/20 14:00 08/23/20 20:25 Risperidone (RisperDAL) 1 mg DAILY PO 08/23/20 09:00 08/23/20 08:15 Risperidone (RisperDAL) 0.5 mg 1400,2100 PO 08/22/20 21:00 08/23/20 19:33 DC 08/23/20 14:42 Risperidone (RisperDAL) 0.5 mg DAILY@1400 PO 08/23/20 19:30 Risperidone (RisperDAL) 1 mg HS PO 08/23/20 21:00 08/23/20 20:23 Current Medications Medications (Trade) Dose Ordered Sig/Rober Route PRN Reason Start Time Stop Time Status Last Admin Dose Admin Risperidone (RisperDAL) 1 mg DAILY PO 08/23/20 09:00 08/23/20 08:15 Risperidone (RisperDAL) 1 mg HS PO 08/23/20 21:00 08/23/20 20:23 I have reviewed the current psychotropics carefully including drug interactions. Risk benefit ratio favors no change other than as noted in my dictated progress note. Diagnosis: Problems: (1) Bipolar disorder, current episode mixed, severe, with psychotic features (2) Anxiety disorder (3) Impulse control disorder (4) Schizoaffective disorder, bipolar type LEONARD ASHFORD MD Aug 23, 2020 22:02
--- NOTE | 2020-08-23 23:12 | NUR ---
Patient talking non-stop about a variety of topics and is jumping from topic to topic. He is attention seeking and will continue to talk out loud even when no one is in his proximity. He sits at the nurses station window and stares at female staff members. Patient denies having a/v hallucinations when asked. He stated that "when he sleeps with his head under the covers, he uses up all his oxygen and has only carbon dioxide to breathe. That is when he has visual and auditory hallucinations". He then asked this nurse if she ever had that happen. Patient stated that he "dates" a peer from his facility that she is also currently admitted here at [facility] and that they "planned" to come here together. Patient compliant with medications and cooperative with cares. He has not been aggressive or threatening this shift.
[2020-08-24] MEDS: LEVOTHYROXINE 100 MCG TABLET PO SCH (05:57)
--- NOTE | 2020-08-24 05:59 | NUR ---
Patient urinated on the floor of his bathroom during the night.
[2020-08-24 06:06] VITALS: BP 102/72
--- NOTE | 2020-08-24 07:22 | PDOC ---
Exam Note: Rafael Note: This note is a late entry for 08/22/2020 covers elements not covered in my initial note. Subjective: The patient was reviewed in the morning of 08/22/2020 for a treatment team meeting with Maria Mehta, Annalisa Jolley (health and social care teacher), Tomeka, activity therapy and Chasity PERSAUD discussed and reviewed the chart. The patient slept 7-1/4 hours previous night. We reviewed the patients diagnoses, progress. He remains somewhat hyperverbal, grandiose asking for a different nursing staff someone who has an accent. He has not been making sexually inappropriate comments however. He did attend a group therapy sessions the day before, hyperverbal. Review of Systems: Ambulation impaired in wheelchair. No CV, , pulmonary, eye, ENT system symptoms on review. Mental Status Exam: The patient is awake, alert and oriented. Speech coherent, somewhat pressured. Abstraction fair. Computation impaired. Language function intact. Attention span short. Mood and affect remains somewhat grandiose. No suicidal or homicidal ideation. Laboratory Data: Reviewed. Impression: Schizoaffective disorder, bipolar type mixed with psychotic features. Anxiety disorder unspecified. Impulse control disorder unspecified. Plan: Increase patients Trileptal from 600 mg daily to 300 mg 9 a.m., 1 p.m., 9 p.m. Risperdal is 0.5 mg t.i.d. We will increase the morning dosage to 1 mg. Continue rest psychotropics unchanged. Assessment: Vital Signs/I&O: Vital Signs Date Time Temp Pulse Resp B/P (MAP) Pulse Ox O2 Delivery O2 Flow Rate FiO2 08/24/20 06:06 96.5 96 16 102/72 (82) 97 Room Air 08/20/20 17:50 97.0 I & O 0 08/23/20 08/23/20 08/24/20 15:00 23:00 07:00 Intake Total 360 ml 840 ml Balance 360 ml 840 ml Current Medications: Meds: Current Medications Medications (Trade) Dose Ordered Sig/Rober Route PRN Reason Start Time Stop Time Status Last Admin Dose Admin Sodium Chloride 1,000 ml @ 1,000 mls/hr 1X ONCE IV 08/20/20 18:45 08/20/20 19:44 DC 08/20/20 19:19 Aspirin (Aspirin Enteric Coated) 81 mg DAILY PO 08/21/20 09:00 08/23/20 08:15 Docusate Sodium (Colace) 100 mg BID PO 08/21/20 09:00 08/23/20 20:23 Furosemide (Lasix) 40 mg DAILY PO 08/21/20 09:00 08/23/20 08:15 Gabapentin (Neurontin) 100 mg TID PO 08/21/20 09:00 08/23/20 20:23 Guaifenesin (Mucinex Er) 600 mg BID PO 08/21/20 09:00 08/23/20 20:23 Levothyroxine Sodium (Synthroid) 100 mcg DAILY06 PO 08/21/20 06:00 08/24/20 05:57 Lisinopril (Prinivil) 5 mg DAILY PO 08/21/20 09:00 08/21/20 16:16 DC 08/21/20 10:13 Metformin HCl (Glucophage) 500 mg BIDWMEALS PO 08/21/20 08:00 08/23/20 17:09 Metoprolol Tartrate (Lopressor) 12.5 mg BID PO 08/21/20 09:00 08/23/20 20:25 Spironolactone (Aldactone) 25 mg DAILY PO 08/21/20 09:00 08/23/20 08:17 Tamsulosin HCl (Flomax) 0.4 mg DAILY PO 08/21/20 09:00 08/23/20 08:16 Vitamin D (Vitamin D3) 2,000 unit DAILY PO 08/21/20 09:00 08/23/20 08:14 Guaifenesin/ Codeine Phosphate (Robitussin Ac) 10 ml PRN Q6HRS PRN PO COUGH 08/20/20 23:15 08/20/20 23:03 DC Lisinopril (Prinivil) 30 mg DAILY PO 08/21/20 09:00 08/23/20 08:22 Magnesium Oxide (Magnesium Oxide) 400 mg DAILY PO 08/21/20 09:00 08/23/20 08:19 Multivitamins/ Calcium (Thera-M Plus) 1 tab DAILY PO 08/21/20 09:00 08/23/20 08:14 Pantoprazole Sodium (Protonix) 40 mg DAILYAC PO 08/21/20 07:30 08/23/20 08:16 Potassium Chloride (Klor-Con) 10 meq DAILYWBKFT PO 08/21/20 08:00 08/23/20 08:16 Demeclocycline HCl (Declomycin) 300 mg Q12HR PO 08/21/20 09:00 08/23/20 20:23 Sodium Chloride (Sodium Chloride Tab) 2 gm BID PO 08/21/20 09:00 08/23/20 20:22 Bupropion HCl (Wellbutrin) 200 mg BID PO 08/21/20 09:00 08/23/20 20:23 Paliperidone Palmitate (Invega Sustenna) 234 mg QMONTH IM 09/19/20 09:00 Risperidone (RisperDAL) 0.5 mg TID PO 08/21/20 09:00 08/22/20 17:29 DC 08/22/20 14:00 Risperidone (RisperDAL) 1 mg DAILY PO 08/21/20 09:00 08/21/20 00:42 DC Medroxyprogesterone Acetate (Depo-Provera Im) 150 mg Q2WKS IM 09/03/20 09:00 Oxcarbazepine (Trileptal) 600 mg DAILY PO 08/21/20 09:00 08/22/20 11:10 DC 08/22/20 08:25 Olanzapine (ZyPREXA ZYDIS) 5 mg PRN Q2HR PRN PO PSYCHOSIS 08/20/20 23:00 Guaifenesin (Robitussin) 200 mg PRN Q4HRS PRN PO COUGH 08/20/20 23:00 Acetaminophen (Tylenol) 650 mg PRN Q6HRS PRN PO MILD PAIN / TEMP > 100.3'F 08/20/20 23:00 Multi-Ingredient Ointment (Analgesic Ernest) 1 muriel PRN QID PRN TP MUSCLE PAIN 08/20/20 23:00 Al Hydroxide/Mg Hydroxide (Mylanta Plus Xs) 15 ml PRN AFTMEALHC PRN PO DYSPEPSIA 08/20/20 23:00 Magnesium Hydroxide (Milk Of Magnesia) 2,400 mg PRN QHS PRN PO CONSTIPATION 08/20/20 23:00 Nicotine (Nicoderm Cq 21mg Patch) 1 patch DAILY TD 08/21/20 09:00 08/23/20 08:13 Risperidone (RisperDAL) 1 mg PRN DAILY PRN PO Anxiety/Agitation 08/21/20 00:45 Oxcarbazepine (Trileptal) 300 mg [id number] PO 08/22/20 14:00 08/23/20 20:25 Risperidone (RisperDAL) 1 mg DAILY PO 08/23/20 09:00 08/23/20 08:15 Risperidone (RisperDAL) 0.5 mg 1400,2100 PO 08/22/20 21:00 08/23/20 19:33 DC 08/23/20 14:42 Risperidone (RisperDAL) 0.5 mg DAILY@1400 PO 08/23/20 19:30 Risperidone (RisperDAL) 1 mg HS PO 08/23/20 21:00 08/23/20 20:23 Current Medications Medications (Trade) Dose Ordered Sig/Rober Route PRN Reason Start Time Stop Time Status Last Admin Dose Admin Risperidone (RisperDAL) 1 mg DAILY PO 08/23/20 09:00 08/23/20 08:15 Risperidone (RisperDAL) 1 mg HS PO 08/23/20 21:00 08/23/20 20:23 I have reviewed the current psychotropics carefully including drug interactions. Risk benefit ratio favors no change other than as noted in my dictated progress note. Diagnosis: Problems: (1) Bipolar disorder, current episode mixed, severe, with psychotic features (2) Anxiety disorder (3) Impulse control disorder (4) Schizoaffective disorder, bipolar type LEONARD ASHFORD MD Aug 24, 2020 07:22
--- NOTE | 2020-08-24 07:38 | PDOC ---
Exam Note: Rafael Note: This note is a late entry for 08/23/2020 covers elements not covered in my initial note. Subjective: The patient was seen individually in the evening of 08/23/2020 with Litzy PERSAUD, discussed and reviewed the chart. The patient slept 7-1/4 hours previous night. He remains hyperverbal, somewhat grandiose, paranoid. Review of Systems: Gait unsteady in wheelchair. No CV, , pulmonary, eye, ENT system symptoms on review. Mental Status Exam: The patient is oriented to himself and situation. Speech coherent, somewhat pressured. Abstraction fair. Computation impaired. Language function intact. Mood and affect remains somewhat labile. Laboratory Data: Reviewed. Impression: Schizoaffective disorder, bipolar type mixed with psychotic features. Anxiety disorder unspecified. Impulse control disorder unspecified. Plan: Continue psychotropics from initial note but increase the Risperdal from 0.5 mg at 2100 hours to 1 mg. Rest unchanged for now. Assessment: Vital Signs/I&O: Vital Signs Date Time Temp Pulse Resp B/P (MAP) Pulse Ox O2 Delivery O2 Flow Rate FiO2 08/24/20 06:06 96.5 96 16 102/72 (82) 97 Room Air 08/20/20 17:50 97.0 I & O 08/23/20 08/23/20 08/24/20 15:00 23:00 07:00 Intake Total 360 ml 840 ml Balance 360 ml 840 ml Current Medications: Meds: Current Medications Medications (Trade) Dose Ordered Sig/Rober Route PRN Reason Start Time Stop Time Status Last Admin Dose Admin Sodium Chloride 1,000 ml @ 1,000 mls/hr 1X ONCE IV 08/20/20 18:45 08/20/20 19:44 DC 08/20/20 19:19 Aspirin (Aspirin Enteric Coated) 81 mg DAILY PO 08/21/20 09:00 08/23/20 08:15 Docusate Sodium (Colace) 100 mg BID PO 08/21/20 09:00 08/23/20 20:23 Furosemide (Lasix) 40 mg DAILY PO 08/21/20 09:00 08/23/20 08:15 Gabapentin (Neurontin) 100 mg TID PO 08/21/20 09:00 08/23/20 20:23 Guaifenesin (Mucinex Er) 600 mg BID PO 08/21/20 09:00 08/23/20 20:23 Levothyroxine Sodium (Synthroid) 100 mcg DAILY06 PO 08/21/20 06:00 08/24/20 05:57 Lisinopril (Prinivil) 5 mg DAILY PO 08/21/20 09:00 08/21/20 16:16 DC 08/21/20 10:13 Metformin HCl (Glucophage) 500 mg BIDWMEALS PO 08/21/20 08:00 08/23/20 17:09 Metoprolol Tartrate (Lopressor) 12.5 mg BID PO 08/21/20 09:00 08/23/20 20:25 Spironolactone (Aldactone) 25 mg DAILY PO 08/21/20 09:00 08/23/20 08:17 Tamsulosin HCl (Flomax) 0.4 mg DAILY PO 08/21/20 09:00 08/23/20 08:16 Vitamin D (Vitamin D3) 2,000 unit DAILY PO 08/21/20 09:00 08/23/20 08:14 Guaifenesin/ Codeine Phosphate (Robitussin Ac) 10 ml PRN Q6HRS PRN PO COUGH 08/20/20 23:15 08/20/20 23:03 DC Lisinopril (Prinivil) 30 mg DAILY PO 08/21/20 09:00 08/23/20 08:22 Magnesium Oxide (Magnesium Oxide) 400 mg DAILY PO 08/21/20 09:00 08/23/20 08:19 Multivitamins/ Calcium (Thera-M Plus) 1 tab DAILY PO 08/21/20 09:00 08/23/20 08:14 Pantoprazole Sodium (Protonix) 40 mg DAILYAC PO 08/21/20 07:30 08/23/20 08:16 Potassium Chloride (Klor-Con) 10 meq DAILYWBKFT PO 08/21/20 08:00 08/23/20 08:16 Demeclocycline HCl (Declomycin) 300 mg Q12HR PO 08/21/20 09:00 08/23/20 20:23 Sodium Chloride (Sodium Chloride Tab) 2 gm BID PO 08/21/20 09:00 08/23/20 20:22 Bupropion HCl (Wellbutrin) 200 mg BID PO 08/21/20 09:00 08/23/20 20:23 Paliperidone Palmitate (Invega Sustenna) 234 mg QMONTH IM 09/19/20 09:00 Risperidone (RisperDAL) 0.5 mg TID PO 08/21/20 09:00 08/22/20 17:29 DC 08/22/20 14:00 Risperidone (RisperDAL) 1 mg DAILY PO 08/21/20 09:00 08/21/20 00:42 DC Medroxyprogesterone Acetate (Depo-Provera Im) 150 mg Q2WKS IM 09/03/20 09:00 Oxcarbazepine (Trileptal) 600 mg DAILY PO 08/21/20 09:00 08/22/20 11:10 DC 08/22/20 08:25 Olanzapine (ZyPREXA ZYDIS) 5 mg PRN Q2HR PRN PO PSYCHOSIS 08/20/20 23:00 Guaifenesin (Robitussin) 200 mg PRN Q4HRS PRN PO COUGH 08/20/20 23:00 Acetaminophen (Tylenol) 650 mg PRN Q6HRS PRN PO MILD PAIN / TEMP > 100.3'F 08/20/20 23:00 Multi-Ingredient Ointment (Analgesic [place]) 1 muriel PRN QID PRN TP MUSCLE PAIN 08/20/20 23:00 Al Hydroxide/Mg Hydroxide (Mylanta Plus Xs) 15 ml PRN AFTMEALHC PRN PO DYSPEPSIA 08/20/20 23:00 Magnesium Hydroxide (Milk Of Magnesia) 2,400 mg PRN QHS PRN PO CONSTIPATION 08/20/20 23:00 Nicotine (Nicoderm Cq 21mg Patch) 1 patch DAILY TD 08/21/20 09:00 08/23/20 08:13 Risperidone (RisperDAL) 1 mg PRN DAILY PRN PO Anxiety/Agitation 08/21/20 00:45 Oxcarbazepine (Trileptal) 300 mg [id number] PO 08/22/20 14:00 08/23/20 20:25 Risperidone (RisperDAL) 1 mg DAILY PO 08/23/20 09:00 08/23/20 08:15 Risperidone (RisperDAL) 0.5 mg 1400,2100 PO 08/22/20 21:00 08/23/20 19:33 DC 08/23/20 14:42 Risperidone (RisperDAL) 0.5 mg DAILY@1400 PO 08/23/20 19:30 Risperidone (RisperDAL) 1 mg HS PO 08/23/20 21:00 08/23/20 20:23 Current Medications Medications (Trade) Dose Ordered Sig/Rober Route PRN Reason Start Time Stop Time Status Last Admin Dose Admin Risperidone (RisperDAL) 1 mg DAILY PO 08/23/20 09:00 08/23/20 08:15 Risperidone (RisperDAL) 1 mg HS PO 08/23/20 21:00 08/23/20 20:23 I have reviewed the current psychotropics carefully including drug interactions. Risk benefit ratio favors no change other than as noted in my dictated progress note. Diagnosis: Problems: (1) Bipolar disorder, current episode mixed, severe, with psychotic features (2) Anxiety disorder (3) Impulse control disorder (4) Schizoaffective disorder, bipolar type LEONARD ASHFORD MD Aug 24, 2020 07:38
[2020-08-24] MEDS: MAGNESIUM OXIDE 400 MG TABLET PO SCH (09:00)
[2020-08-24] MEDS: CHOLECALCIFEROL (VITAMIN D3) 1,000 UNIT TABLET PO SCH (09:28)
[2020-08-24] MEDS: FUROSEMIDE 40 MG TABLET PO SCH (09:28)
[2020-08-24] MEDS: MULTIVITAMIN with MINERAL TABLET. PO SCH (09:28)
[2020-08-24] MEDS: GABAPENTIN 100 MG CAPSULE. PO SCH ×3 (09:29→20:59)
[2020-08-24] MEDS: risperiDONE 1 MG TABLET. PO SCH ×2 (09:29→20:58)
[2020-08-24] MEDS: metFORMIN 500 MG TABLET PO SCH ×2 (09:29→17:23)
[2020-08-24] MEDS: TAMSULOSIN 0.4 MG CAP.ER.24H. PO SCH (09:29)
[2020-08-24] MEDS: SPIRONOLACTONE 25 MG TABLET PO SCH (09:29)
[2020-08-24] MEDS: DEMECLOCYCLINE HCL 150 MG TABLET. PO SCH ×2 (09:29→20:59)
[2020-08-24] MEDS: buPROPion 100 MG TABLET. PO SCH ×2 (09:29→20:59)
[2020-08-24] MEDS: SODIUM CHLORIDE 1 GM TABLET PO SCH ×2 (09:29→20:59)
[2020-08-24] MEDS: DOCUSATE SODIUM 100 MG CAPSULE PO SCH ×2 (09:29→20:58)
[2020-08-24] MEDS: POTASSIUM CHLORIDE 10 MEQ TABLET.ER. PO SCH (09:30)
[2020-08-24] MEDS: LISINOPRIL 10 MG TABLET PO SCH (09:30)
[2020-08-24] MEDS: PANTOPRAZOLE 40 MG TABLET. PO SCH (09:30)
[2020-08-24] MEDS: NICOTINE 21MG PATCH. TD SCH (09:30)
[2020-08-24] MEDS: ASPIRIN ENTERIC COATED 81 MG TABLET.DR. PO SCH (09:30)
[2020-08-24] MEDS: METOPROLOL TART IMMED RELEASE 25 MG TABLET. PO SCH ×2 (09:31→20:55)
--- NOTE | 2020-08-24 10:58 | NUR ---
Pt med compliant this morning. He is appropriate in his interactions with others. He did get into a verbal disagreement with a female patient whom he states is his girlfriend, however it remained civil and did not escalate into verbal/physical aggression. After breakfast he retired back to bed and napped a little, then returned to the day room and has been visible on the unit. He is A&Ox4, absent of SI/HI/VH/AH/delusions/pain at this time. He has been speaking at extended lengths at times to anyone and no one in particular. Plan of care continues, will pass to next shift.
[2020-08-24] MEDS: risperiDONE 0.5 MG TABLET. PO SCH (12:15)
--- NOTE | 2020-08-24 14:01 | NUR ---
CHIEF PILOT reports that while taking pt's VS he was complaining about feeling "light headed" and that his BP was 69/46 with the adult cuff on the forearm. This nurse assessed pt; he was sitting upright in w/c stating that he was feeling "light headed" but he feels better now. VS obtained with large adult long cuff on upper arm: BP 79/59 HR 64. Pt does not appear in distress, he actually is talking continuously during assessment and requires multiple requests to not talk or move around while BP is being obtained. Pt educated about not attempting to stand or amb without staff assistance, water provided. Will pass on to Dr Estrada for review of his BP medications since he takes 4 in the morning.
[2020-08-24 14:08] VITALS: BP_SYST 69; BP_SYST 79; BP_DIAS 46; BP_DIAS 59
[2020-08-24 16:21] VITALS: BP 97/67
[2020-08-24] MEDS: LACTOBACILLUS RHAMNOSUS GG 1 CAPSULE. PO SCH (20:58)
--- NOTE | 2020-08-24 23:23 | PDOC ---
Exam Note: Rafael Note: Please also refer to the separate dictated note~for this date of service dictated separately.~Patient seen individually. Discussed the patient with Nursing staff reviewed the chart.~Reviewed interim history and current functioning. Reviewed vital signs,~Labs/ Radiology~and current medications noted below. Continue current treatment with the changes noted in the dictated addendum note Assessment: Vital Signs/I&O: Vital Signs Date Time Temp Pulse Resp B/P (MAP) Pulse Ox O2 Delivery O2 Flow Rate FiO2 08/24/20 20:55 88 97/67 08/24/20 16:21 97.7 18 95 08/24/20 06:06 Room Air 08/20/20 17:50 97.0 I & O 08/23/20 08/23/20 08/24/20 15:00 23:00 07:00 Intake Total 360 ml 840 ml Balance 360 ml 840 ml Current Medications: Meds: Current Medications Medications (Trade) Dose Ordered Sig/Rober Route PRN Reason Start Time Stop Time Status Last Admin Dose Admin Sodium Chloride 1,000 ml @ 1,000 mls/hr 1X ONCE IV 08/20/20 18:45 08/20/20 19:44 DC 08/20/20 19:19 Aspirin (Aspirin Enteric Coated) 81 mg DAILY PO 08/21/20 09:00 08/24/20 09:30 Docusate Sodium (Colace) 100 mg BID PO 08/21/20 09:00 08/24/20 20:58 Furosemide (Lasix) 40 mg DAILY PO 08/21/20 09:00 08/24/20 09:28 Gabapentin (Neurontin) 100 mg TID PO 08/21/20 09:00 08/24/20 20:59 Guaifenesin (Mucinex Er) 600 mg BID PO 08/21/20 09:00 08/24/20 20:59 Levothyroxine Sodium (Synthroid) 100 mcg DAILY06 PO 08/21/20 06:00 08/24/20 05:57 Lisinopril (Prinivil) 5 mg DAILY PO 08/21/20 09:00 08/21/20 16:16 DC 08/21/20 10:13 Metformin HCl (Glucophage) 500 mg BIDWMEALS PO 08/21/20 08:00 08/24/20 17:23 Metoprolol Tartrate (Lopressor) 12.5 mg BID PO 08/21/20 09:00 08/24/20 09:31 Spironolactone (Aldactone) 25 mg DAILY PO 08/21/20 09:00 08/24/20 09:29 Tamsulosin HCl (Flomax) 0.4 mg DAILY PO 08/21/20 09:00 08/24/20 09:29 Vitamin D (Vitamin D3) 2,000 unit DAILY PO 08/21/20 09:00 08/24/20 09:28 Guaifenesin/ Codeine Phosphate (Robitussin Ac) 10 ml PRN Q6HRS PRN PO COUGH 08/20/20 23:15 08/20/20 23:03 DC Lisinopril (Prinivil) 30 mg DAILY PO 08/21/20 09:00 08/24/20 09:30 Magnesium Oxide (Magnesium Oxide) 400 mg DAILY PO 08/21/20 09:00 08/24/20 09:00 Multivitamins/ Calcium (Thera-M Plus) 1 tab DAILY PO 08/21/20 09:00 08/24/20 09:28 Pantoprazole Sodium (Protonix) 40 mg DAILYAC PO 08/21/20 07:30 08/24/20 09:30 Potassium Chloride (Klor-Con) 10 meq DAILYWBKFT PO 08/21/20 08:00 08/24/20 09:30 Demeclocycline HCl (Declomycin) 300 mg Q12HR PO 08/21/20 09:00 08/24/20 20:59 Sodium Chloride (Sodium Chloride Tab) 2 gm BID PO 08/21/20 09:00 08/24/20 20:59 Bupropion HCl (Wellbutrin) 200 mg BID PO 08/21/20 09:00 08/24/20 20:59 Paliperidone Palmitate (Invega Sustenna) 234 mg QMONTH IM 09/19/20 09:00 Risperidone (RisperDAL) 0.5 mg TID PO 08/21/20 09:00 08/22/20 17:29 DC 08/22/20 14:00 Risperidone (RisperDAL) 1 mg DAILY PO 08/21/20 09:00 08/21/20 00:42 DC Medroxyprogesterone Acetate (Depo-Provera Im) 150 mg Q2WKS IM 09/03/20 09:00 Oxcarbazepine (Trileptal) 600 mg DAILY PO 08/21/20 09:00 08/22/20 11:10 DC 08/22/20 08:25 Olanzapine (ZyPREXA ZYDIS) 5 mg PRN Q2HR PRN PO PSYCHOSIS 08/20/20 23:00 Guaifenesin (Robitussin) 200 mg PRN Q4HRS PRN PO COUGH 08/20/20 23:00 Acetaminophen (Tylenol) 650 mg PRN Q6HRS PRN PO MILD PAIN / TEMP > 100.3'F 08/20/20 23:00 Multi-Ingredient Ointment (Analgesic [place]) 1 muriel PRN QID PRN TP MUSCLE PAIN 08/20/20 23:00 Al Hydroxide/Mg Hydroxide (Mylanta Plus Xs) 15 ml PRN AFTMEALHC PRN PO DYSPEPSIA 08/20/20 23:00 Magnesium Hydroxide (Milk Of Magnesia) 2,400 mg PRN QHS PRN PO CONSTIPATION 08/20/20 23:00 Nicotine (Nicoderm Cq 21mg Patch) 1 patch DAILY TD 08/21/20 09:00 08/24/20 09:30 Risperidone (RisperDAL) 1 mg PRN DAILY PRN PO Anxiety/Agitation 08/21/20 00:45 Oxcarbazepine (Trileptal) 300 mg [id number] PO 08/22/20 14:00 08/24/20 20:59 Risperidone (RisperDAL) 1 mg DAILY PO 08/23/20 09:00 08/24/20 09:29 Risperidone (RisperDAL) 0.5 mg 1400,2100 PO 08/22/20 21:00 08/23/20 19:33 DC 08/23/20 14:42 Risperidone (RisperDAL) 0.5 mg DAILY@1400 PO 08/23/20 19:30 08/24/20 12:15 Risperidone (RisperDAL) 1 mg HS PO 08/23/20 21:00 08/24/20 20:58 Lactobacillus Rhamnosus (Culturelle) 1 cap BID PO 08/24/20 21:00 08/24/20 20:58 Current Medications Medications (Trade) Dose Ordered Sig/Orber Route PRN Reason Start Time Stop Time Status Last Admin Dose Admin Lactobacillus Rhamnosus (Culturelle) 1 cap BID PO 08/24/20 21:00 08/24/20 20:58 I have reviewed the current psychotropics carefully including drug interactions. Risk benefit ratio favors no change other than as noted in my dictated progress note. Diagnosis: Problems: (1) Bipolar disorder, current episode mixed, severe, with psychotic features (2) Anxiety disorder (3) Impulse control disorder (4) Schizoaffective disorder, bipolar type LEONARD ASHFORD MD Aug 24, 2020 23:22
[2020-08-25] MEDS: LEVOTHYROXINE 100 MCG TABLET PO SCH (05:28)
--- NOTE | 2020-08-25 05:42 | NUR ---
Patient was in the day room until bed time. He is cooperative with staff and compliant with medications. Patient denies hallucinations when asked. He is alert and oriented x4.
[2020-08-25 06:44] VITALS: BP 110/78
[2020-08-25] MEDS: NICOTINE 21MG PATCH. TD SCH (08:28)
[2020-08-25] MEDS: PANTOPRAZOLE 40 MG TABLET. PO SCH (08:28)
[2020-08-25] MEDS: DOCUSATE SODIUM 100 MG CAPSULE PO SCH ×2 (08:29→20:42)
[2020-08-25] MEDS: MULTIVITAMIN with MINERAL TABLET. PO SCH (08:29)
[2020-08-25] MEDS: CHOLECALCIFEROL (VITAMIN D3) 1,000 UNIT TABLET PO SCH (08:29)
[2020-08-25] MEDS: DEMECLOCYCLINE HCL 150 MG TABLET. PO SCH ×2 (08:29→20:42)
[2020-08-25] MEDS: buPROPion 100 MG TABLET. PO SCH ×2 (08:29→20:42)
[2020-08-25] MEDS: TAMSULOSIN 0.4 MG CAP.ER.24H. PO SCH (08:29)
[2020-08-25] MEDS: GABAPENTIN 100 MG CAPSULE. PO SCH ×3 (08:30→20:43)
[2020-08-25] MEDS: LACTOBACILLUS RHAMNOSUS GG 1 CAPSULE. PO SCH ×2 (08:30→20:43)
[2020-08-25] MEDS: SODIUM CHLORIDE 1 GM TABLET PO SCH ×2 (08:30→20:43)
[2020-08-25] MEDS: risperiDONE 1 MG TABLET. PO SCH ×2 (08:30→20:43)
[2020-08-25] MEDS: POTASSIUM CHLORIDE 10 MEQ TABLET.ER. PO SCH (08:30)
[2020-08-25] MEDS: ASPIRIN ENTERIC COATED 81 MG TABLET.DR. PO SCH (08:30)
[2020-08-25] MEDS: metFORMIN 500 MG TABLET PO SCH ×2 (08:31→17:18)
[2020-08-25] MEDS: LISINOPRIL 10 MG TABLET PO SCH (08:31)
[2020-08-25] MEDS: SPIRONOLACTONE 25 MG TABLET PO SCH (08:31)
[2020-08-25] MEDS: FUROSEMIDE 40 MG TABLET PO SCH (08:31)
[2020-08-25] MEDS: METOPROLOL TART IMMED RELEASE 25 MG TABLET. PO SCH (08:32)
[2020-08-25] MEDS: MAGNESIUM OXIDE 400 MG TABLET PO SCH (08:32)
--- NOTE | 2020-08-25 13:52 | NUR ---
Nursing note: Client in dinning room for morning medications & assessment, took pills whole. He denies SI/HI/VH/AH/AH/delusions/pain/discomfort at this time. Client is alert & oriented X4. He is calm, compliant, social with peers & staff. He is currently in sitting in eng. Plan of care continues, will continue to monitor.
[2020-08-25] MEDS: risperiDONE 0.5 MG TABLET. PO SCH (14:11)
[2020-08-25 15:53] VITALS: BP 92/65
--- NOTE | 2020-08-26 02:33 | NUR ---
Last evening pt was in the day room conversing with himself at great length. He was cooperative with staff and took meds without difficulty. Since going to bed he has been sleeping.
[2020-08-26] MEDS: LEVOTHYROXINE 100 MCG TABLET PO SCH (05:49)
[2020-08-26 06:03] VITALS: BP 107/77
[2020-08-26] MEDS: NICOTINE 21MG PATCH. TD SCH (08:44)
[2020-08-26] MEDS: MULTIVITAMIN with MINERAL TABLET. PO SCH (08:45)
[2020-08-26] MEDS: POTASSIUM CHLORIDE 10 MEQ TABLET.ER. PO SCH (08:45)
[2020-08-26] MEDS: ASPIRIN ENTERIC COATED 81 MG TABLET.DR. PO SCH (08:45)
[2020-08-26] MEDS: FUROSEMIDE 40 MG TABLET PO SCH (08:46)
[2020-08-26] MEDS: metFORMIN 500 MG TABLET PO SCH ×2 (08:46→17:41)
[2020-08-26] MEDS: DOCUSATE SODIUM 100 MG CAPSULE PO SCH ×2 (08:46→20:30)
[2020-08-26] MEDS: LACTOBACILLUS RHAMNOSUS GG 1 CAPSULE. PO SCH ×2 (08:46→20:30)
[2020-08-26] MEDS: GABAPENTIN 100 MG CAPSULE. PO SCH ×3 (08:46→20:31)
[2020-08-26] MEDS: PANTOPRAZOLE 40 MG TABLET. PO SCH (08:46)
[2020-08-26] MEDS: risperiDONE 1 MG TABLET. PO SCH ×2 (08:46→20:30)
[2020-08-26] MEDS: buPROPion 100 MG TABLET. PO SCH ×2 (08:46→20:30)
[2020-08-26] MEDS: CHOLECALCIFEROL (VITAMIN D3) 1,000 UNIT TABLET PO SCH (08:47)
[2020-08-26] MEDS: MAGNESIUM OXIDE 400 MG TABLET PO SCH (08:47)
[2020-08-26] MEDS: TAMSULOSIN 0.4 MG CAP.ER.24H. PO SCH (08:47)
[2020-08-26] MEDS: DEMECLOCYCLINE HCL 150 MG TABLET. PO SCH ×2 (08:49→20:29)
[2020-08-26] MEDS: SODIUM CHLORIDE 1 GM TABLET PO SCH ×2 (09:21→20:29)
--- NOTE | 2020-08-26 09:26 | PDOC ---
Exam Note: Rafael Note: This note is a late entry for 08/24/2020 covers elements not covered in my initial note. Subjective: The patient was seen on telehealth rounds in the evening of 08/24/2020 with the nursing staff taking the telehealth camera to each patient, which was on a secure portal, discussed and reviewed the chart with Litzy PERSAUD. The patient slept 6-1/2 hours previous night. Previous evening he was delusional, talking about if he had his face under the blanket. His carbon dioxide would increase. He gets a little obsessive at times, hyperverbal, stares at female nursing staff, compliant with medications. He was somewhat hypotensive and we will defer to Dr. Estrada. He is also found to be kissing one of the other female patients on the unit and this is someone he is known from the intermediate and apparently they have had similar relationship with the intermediate as well. Previously when I discussed with him he felt he was still manic and somewhat paranoid and that Haldol had done very well in the past. Nevertheless I had increased the Risperdal and later he told me that the increase was very significantly effective. I had considered adding Haldol but we will defer consequent to above. Review of Systems: Gait unsteady in wheelchair. No CV, , pulmonary, eye, ENT system symptoms on review. Mental Status Exam: The patient is oriented to himself and situation. Speech coherent, somewhat pressured. Abstraction fair. Computation impaired. Languag e function intact. Mood and affect remains somewhat labile. Laboratory Data: Reviewed. Impression: Schizoaffective disorder, bipolar type mixed with psychotic features. Anxiety disorder unspecified. Impulse control disorder unspecified. Plan: Continue psychotropics from initial note and not add the Haldol. Adjust further as clinically indicated. Assessment: Vital Signs/I&O: Vital Signs Date Time Temp Pulse Resp B/P (MAP) Pulse Ox O2 Delivery O2 Flow Rate FiO2 08/26/20 06:03 97.5 102 18 107/77 (87) 94 08/24/20 06:06 Room Air 08/20/20 17:50 97.0 I & O 08/25/20 08/25/20 08/26/20 15:00 23:00 07:00 Intake Total 720 ml 840 ml Balance 720 ml 840 ml Current Medications: Meds: Current Medications Medications (Trade) Dose Ordered Sig/Rober Route PRN Reason Start Time Stop Time Status Last Admin Dose Admin Sodium Chloride 1,000 ml @ 1,000 mls/hr 1X ONCE IV 08/20/20 18:45 08/20/20 19:44 DC 08/20/20 19:19 Aspirin (Aspirin Enteric Coated) 81 mg DAILY PO 08/21/20 09:00 08/26/20 08:45 Docusate Sodium (Colace) 100 mg BID PO 08/21/20 09:00 08/26/20 08:46 Furosemide (Lasix) 40 mg DAILY PO 08/21/20 09:00 08/26/20 08:46 Gabapentin (Neurontin) 100 mg TID PO 08/21/20 09:00 08/26/20 08:46 Guaifenesin (Mucinex Er) 600 mg BID PO 08/21/20 09:00 08/26/20 08:46 Levothyroxine Sodium (Synthroid) 100 mcg DAILY06 PO 08/21/20 06:00 08/26/20 05:49 Lisinopril (Prinivil) 5 mg DAILY PO 08/21/20 09:00 08/21/20 16:16 DC 08/21/20 10:13 Metformin HCl (Glucophage) 500 mg BIDWMEALS PO 08/21/20 08:00 08/26/20 08:46 Metoprolol Tartrate (Lopressor) 12.5 mg BID PO 08/21/20 09:00 08/25/20 09:33 DC 08/25/20 08:32 Spironolactone (Aldactone) 25 mg DAILY PO 08/21/20 09:00 08/25/20 09:33 DC 08/25/20 08:31 Tamsulosin HCl (Flomax) 0.4 mg DAILY PO 08/21/20 09:00 08/26/20 08:47 Vitamin D (Vitamin D3) 2,000 unit DAILY PO 08/21/20 09:00 08/26/20 08:47 Guaifenesin/ Codeine Phosphate (Robitussin Ac) 10 ml PRN Q6HRS PRN PO COUGH 08/20/20 23:15 08/20/20 23:03 DC Lisinopril (Prinivil) 30 mg DAILY PO 08/21/20 09:00 08/25/20 09:33 DC 08/25/20 08:31 Magnesium Oxide (Magnesium Oxide) 400 mg DAILY PO 08/21/20 09:00 08/26/20 08:47 Multivitamins/ Calcium (Thera-M Plus) 1 tab DAILY PO 08/21/20 09:00 08/26/20 08:45 Pantoprazole Sodium (Protonix) 40 mg DAILYAC PO 08/21/20 07:30 08/26/20 08:46 Potassium Chloride (Klor-Con) 10 meq DAILYWBKFT PO 08/21/20 08:00 08/26/20 08:45 Demeclocycline HCl (Declomycin) 300 mg Q12HR PO 08/21/20 09:00 08/26/20 08:49 Sodium Chloride (Sodium Chloride Tab) 2 gm BID PO 08/21/20 09:00 08/26/20 09:21 Bupropion HCl (Wellbutrin) 200 mg BID PO 08/21/20 09:00 08/26/20 08:46 Paliperidone Palmitate (Invega Sustenna) 234 mg QMONTH IM 09/19/20 09:00 Risperidone (RisperDAL) 0.5 mg TID PO 08/21/20 09:00 08/22/20 17:29 DC 08/22/20 14:00 Risperidone (RisperDAL) 1 mg DAILY PO 08/21/20 09:00 08/21/20 00:42 DC Medroxyprogesterone Acetate (Depo-Provera Im) 150 mg Q2WKS IM 09/03/20 09:00 Oxcarbazepine (Trileptal) 600 mg DAILY PO 08/21/20 09:00 08/22/20 11:10 DC 08/22/20 08:25 Olanzapine (ZyPREXA ZYDIS) 5 mg PRN Q2HR PRN PO PSYCHOSIS 08/20/20 23:00 Guaifenesin (Robitussin) 200 mg PRN Q4HRS PRN PO COUGH 08/20/20 23:00 Acetaminophen (Tylenol) 650 mg PRN Q6HRS PRN PO MILD PAIN / TEMP > 100.3'F 08/20/20 23:00 Multi-Ingredient Ointment (Analgesic [place]) 1 muriel PRN QID PRN TP MUSCLE PAIN 08/20/20 23:00 Al Hydroxide/Mg Hydroxide (Mylanta Plus Xs) 15 ml PRN AFTMEALHC PRN PO DYSPEPSIA 08/20/20 23:00 Magnesium Hydroxide (Milk Of Magnesia) 2,400 mg PRN QHS PRN PO CONSTIPATION 08/20/20 23:00 Nicotine (Nicoderm Cq 21mg Patch) 1 patch DAILY TD 08/21/20 09:00 08/26/20 08:44 Risperidone (RisperDAL) 1 mg PRN DAILY PRN PO Anxiety/Agitation 08/21/20 00:45 Oxcarbazepine (Trileptal) 300 mg [id number] PO 08/22/20 14:00 08/26/20 08:47 Risperidone (RisperDAL) 1 mg DAILY PO 08/23/20 09:00 08/26/20 08:46 Risperidone (RisperDAL) 0.5 mg 1400,2100 PO 08/22/20 21:00 08/23/20 19:33 DC 08/23/20 14:42 Risperidone (RisperDAL) 0.5 mg DAILY@1400 PO 08/23/20 19:30 08/25/20 14:11 Risperidone (RisperDAL) 1 mg HS PO 08/23/20 21:00 08/25/20 20:43 Lactobacillus Rhamnosus (Culturelle) 1 cap BID PO 08/24/20 21:00 08/26/20 08:46 I have reviewed the current psychotropics carefully including drug interactions. Risk benefit ratio favors no change other than as noted in my dictated progress note. Diagnosis: Problems: (1) Bipolar disorder, current episode mixed, severe, with psychotic features (2) Anxiety disorder (3) Impulse control disorder (4) Schizoaffective disorder, bipolar type LEONARD ASHFORD MD Aug 26, 2020 09:26
[2020-08-26] MEDS: risperiDONE 0.5 MG TABLET. PO SCH (13:43)
--- NOTE | 2020-08-26 14:06 | NUR ---
Nursing note: Client in bed room for morning medications & assessment, took pills whole. He denies SI/HI/VH/AH/AH/delusions at this time. He reported lower back pain that is chronic in nature. Client is alert & oriented X4. He self propels himself in wheel chair. Client frequently carries on conversations talking to himself or unknown person. He is calm, compliant, social with peers & staff. Peer trying to kiss & hug client, staff redirected. He is currently sitting in eng. Plan of care continues, will continue to monitor.
[2020-08-26 15:44] VITALS: BP 134/88
--- NOTE | 2020-08-26 22:12 | PDOC ---
Exam Note: Rafael Note: Please also refer to the separate dictated note~for this date of service dictated separately.~Patient seen individually. Discussed the patient with Nursing staff reviewed the chart.~Reviewed interim history and current functioning. Reviewed vital signs,~Labs/ Radiology~and current medications noted below. Continue current treatment with the changes noted in the dictated addendum note Assessment: Vital Signs/I&O: Vital Signs Date Time Temp Pulse Resp B/P (MAP) Pulse Ox O2 Delivery O2 Flow Rate FiO2 08/26/20 15:44 96.7 108 20 134/88 (103) 99 08/24/20 06:06 Room Air 08/20/20 17:50 97.0 I & O 0 08/25/20 08/25/20 08/26/20 15:00 23:00 07:00 Intake Total 720 ml 840 ml Balance 720 ml 840 ml Current Medications: Meds: Current Medications Medications (Trade) Dose Ordered Sig/Rober Route PRN Reason Start Time Stop Time Status Last Admin Dose Admin Sodium Chloride 1,000 ml @ 1,000 mls/hr 1X ONCE IV 08/20/20 18:45 08/20/20 19:44 DC 08/20/20 19:19 Aspirin (Aspirin Enteric Coated) 81 mg DAILY PO 08/21/20 09:00 08/26/20 08:45 Docusate Sodium (Colace) 100 mg BID PO 08/21/20 09:00 08/26/20 20:30 Furosemide (Lasix) 40 mg DAILY PO 08/21/20 09:00 08/26/20 08:46 Gabapentin (Neurontin) 100 mg TID PO 08/21/20 09:00 08/26/20 20:31 Guaifenesin (Mucinex Er) 600 mg BID PO 08/21/20 09:00 08/26/20 20:30 Levothyroxine Sodium (Synthroid) 100 mcg DAILY06 PO 08/21/20 06:00 08/26/20 05:49 Lisinopril (Prinivil) 5 mg DAILY PO 08/21/20 09:00 08/21/20 16:16 DC 08/21/20 10:13 Metformin HCl (Glucophage) 500 mg BIDWMEALS PO 08/21/20 08:00 08/26/20 17:41 Metoprolol Tartrate (Lopressor) 12.5 mg BID PO 08/21/20 09:00 08/25/20 09:33 DC 08/25/20 08:32 Spironolactone (Aldactone) 25 mg DAILY PO 08/21/20 09:00 08/25/20 09:33 DC 08/25/20 08:31 Tamsulosin HCl (Flomax) 0.4 mg DAILY PO 08/21/20 09:00 08/26/20 08:47 Vitamin D (Vitamin D3) 2,000 unit DAILY PO 08/21/20 09:00 08/26/20 08:47 Guaifenesin/ Codeine Phosphate (Robitussin Ac) 10 ml PRN Q6HRS PRN PO COUGH 08/20/20 23:15 08/20/20 23:03 DC Lisinopril (Prinivil) 30 mg DAILY PO 08/21/20 09:00 08/25/20 09:33 DC 08/25/20 08:31 Magnesium Oxide (Magnesium Oxide) 400 mg DAILY PO 08/21/20 09:00 08/26/20 08:47 Multivitamins/ Calcium (Thera-M Plus) 1 tab DAILY PO 08/21/20 09:00 08/26/20 08:45 Pantoprazole Sodium (Protonix) 40 mg DAILYAC PO 08/21/20 07:30 08/26/20 08:46 Potassium Chloride (Klor-Con) 10 meq DAILYWBKFT PO 08/21/20 08:00 08/26/20 08:45 Demeclocycline HCl (Declomycin) 300 mg Q12HR PO 08/21/20 09:00 08/26/20 20:29 Sodium Chloride (Sodium Chloride Tab) 2 gm BID PO 08/21/20 09:00 08/26/20 20:29 Bupropion HCl (Wellbutrin) 200 mg BID PO 08/21/20 09:00 08/26/20 20:30 Paliperidone Palmitate (Invega Sustenna) 234 mg QMONTH IM 09/19/20 09:00 Risperidone (RisperDAL) 0.5 mg TID PO 08/21/20 09:00 08/22/20 17:29 DC 08/22/20 14:00 Risperidone (RisperDAL) 1 mg DAILY PO 08/21/20 09:00 08/21/20 00:42 DC Medroxyprogesterone Acetate (Depo-Provera Im) 150 mg Q2WKS IM 09/03/20 09:00 Oxcarbazepine (Trileptal) 600 mg DAILY PO 08/21/20 09:00 08/22/20 11:10 DC 08/22/20 08:25 Olanzapine (ZyPREXA ZYDIS) 5 mg PRN Q2HR PRN PO PSYCHOSIS 08/20/20 23:00 Guaifenesin (Robitussin) 200 mg PRN Q4HRS PRN PO COUGH 08/20/20 23:00 Acetaminophen (Tylenol) 650 mg PRN Q6HRS PRN PO MILD PAIN / TEMP > 100.3'F 08/20/20 23:00 Multi-Ingredient Ointment (Analgesic [place]) 1 muriel PRN QID PRN TP MUSCLE PAIN 08/20/20 23:00 Al Hydroxide/Mg Hydroxide (Mylanta Plus Xs) 15 ml PRN AFTMEALHC PRN PO DYSPEPSIA 08/20/20 23:00 Magnesium Hydroxide (Milk Of Magnesia) 2,400 mg PRN QHS PRN PO CONSTIPATION 08/20/20 23:00 Nicotine (Nicoderm Cq 21mg Patch) 1 patch DAILY TD 08/21/20 09:00 08/26/20 08:44 Risperidone (RisperDAL) 1 mg PRN DAILY PRN PO Anxiety/Agitation 08/21/20 00:45 Oxcarbazepine (Trileptal) 300 mg [id number] PO 08/22/20 14:00 08/26/20 15:47 DC 08/26/20 13:43 Risperidone (RisperDAL) 1 mg DAILY PO 08/23/20 09:00 08/26/20 08:46 Risperidone (RisperDAL) 0.5 mg 1400,2100 PO 08/22/20 21:00 08/23/20 19:33 DC 08/23/20 14:42 Risperidone (RisperDAL) 0.5 mg DAILY@1400 PO 08/23/20 19:30 08/26/20 13:43 Risperidone (RisperDAL) 1 mg HS PO 08/23/20 21:00 08/26/20 20:30 Lactobacillus Rhamnosus (Culturelle) 1 cap BID PO 08/24/20 21:00 08/26/20 20:30 Oxcarbazepine (Trileptal) 300 mg 1400,2100 PO 08/26/20 21:00 08/26/20 20:30 Oxcarbazepine (Trileptal) 600 mg DAILY PO 08/27/20 09:00 Current Medications Medications (Trade) Dose Ordered Sig/Rober Route PRN Reason Start Time Stop Time Status Last Admin Dose Admin Oxcarbazepine (Trileptal) 300 mg 1400,2100 PO 08/26/20 21:00 08/26/20 20:30 I have reviewed the current psychotropics carefully including drug interactions. Risk benefit ratio favors no change other than as noted in my dictated progress note. Diagnosis: Problems: (1) Bipolar disorder, current episode mixed, severe, with psychotic features (2) Anxiety disorder (3) Impulse control disorder (4) Schizoaffective disorder, bipolar type LEONARD ASHFORD MD Aug 26, 2020 22:12
--- NOTE | 2020-08-27 05:28 | NUR ---
Cyndy pt has been pleasant and cooperative. He took meds whole and is cooperative with cares. He has not been conversing with self as he did the night before. After going to bed he slept well and has had no behaviors tonight.
[2020-08-27] MEDS: LEVOTHYROXINE 100 MCG TABLET PO SCH (05:41)
[2020-08-27 05:53] VITALS: BP 106/76
[2020-08-27] MEDS: ASPIRIN ENTERIC COATED 81 MG TABLET.DR. PO SCH (08:03)
[2020-08-27] MEDS: CHOLECALCIFEROL (VITAMIN D3) 1,000 UNIT TABLET PO SCH (08:03)
[2020-08-27] MEDS: SODIUM CHLORIDE 1 GM TABLET PO SCH ×2 (08:03→20:32)
[2020-08-27] MEDS: MULTIVITAMIN with MINERAL TABLET. PO SCH (08:04)
[2020-08-27] MEDS: FUROSEMIDE 40 MG TABLET PO SCH (08:04)
[2020-08-27] MEDS: DEMECLOCYCLINE HCL 150 MG TABLET. PO SCH ×2 (08:04→20:32)
[2020-08-27] MEDS: DOCUSATE SODIUM 100 MG CAPSULE PO SCH ×2 (08:04→20:32)
[2020-08-27] MEDS: metFORMIN 500 MG TABLET PO SCH ×2 (08:04→17:12)
[2020-08-27] MEDS: GABAPENTIN 100 MG CAPSULE. PO SCH ×3 (08:04→20:33)
[2020-08-27] MEDS: buPROPion 100 MG TABLET. PO SCH ×2 (08:04→20:32)
[2020-08-27] MEDS: LACTOBACILLUS RHAMNOSUS GG 1 CAPSULE. PO SCH ×2 (08:05→20:33)
[2020-08-27] MEDS: PANTOPRAZOLE 40 MG TABLET. PO SCH (08:05)
[2020-08-27] MEDS: risperiDONE 1 MG TABLET. PO SCH ×2 (08:05→20:33)
[2020-08-27] MEDS: POTASSIUM CHLORIDE 10 MEQ TABLET.ER. PO SCH (08:05)
[2020-08-27] MEDS: TAMSULOSIN 0.4 MG CAP.ER.24H. PO SCH (08:05)
[2020-08-27] MEDS: MAGNESIUM OXIDE 400 MG TABLET PO SCH (08:06)
[2020-08-27] MEDS: NICOTINE 21MG PATCH. TD SCH (08:06)
--- NOTE | 2020-08-27 09:46 | PDOC ---
Exam Note: Rafael Note: This note is a late entry for 08/25/2020 covers elements not covered in my initial note. Subjective: The patient was seen on telehealth rounds in the afternoon of 08/25/2020 with the nursing staff taking the telehealth camera to each patient, which was on a secure portal, discussed and reviewed the chart with Carolina PERSAUD. The patient slept 7 hours previous night. Previous evening he was somewhat hyperactive. Blood pressure was somewhat low and lisinopril and Aldactone were discontinued per Dr. Estrada. He has been more social. No kissing inappropriately of another female patient on the unit. Review of Systems: Ambulation impaired in wheelchair. No CV, , pulmonary, eye, ENT system symptoms on review. Mental Status Exam: The patient is reasonably oriented. Speech coherent. Abstraction fair. Computation impaired. Language function intact. Attention span short. Mood less grandiose, affect mood congruent. Laboratory Data: Reviewed. Impression: Schizoaffective disorder, bipolar type mixed with psychotic features. Anxiety disorder unspecified. Impulse control disorder unspecified. Plan: Continue psychotropics from initial note. Continue Trileptal but if manic symptoms resurface we will increase the Trileptal. Assessment: Vital Signs/I&O: Vital Signs Date Time Temp Pulse Resp B/P (MAP) Pulse Ox O2 Delivery O2 Flow Rate FiO2 08/27/20 05:53 97.4 115 18 106/76 (86) 97 08/24/20 06:06 Room Air I & O 08/26/20 08/26/20 08/27/20 15:00 23:00 07:00 Intake Total 1140 ml 600 ml Balance 1140 ml 600 ml Current Medications: Meds: Current Medications Medications (Trade) Dose Ordered Sig/Rober Route PRN Reason Start Time Stop Time Status Last Admin Dose Admin Sodium Chloride 1,000 ml @ 1,000 mls/hr 1X ONCE IV 08/20/20 18:45 08/20/20 19:44 DC 08/20/20 19:19 Aspirin (Aspirin Enteric Coated) 81 mg DAILY PO 08/21/20 09:00 08/27/20 08:03 Docusate Sodium (Colace) 100 mg BID PO 08/21/20 09:00 08/27/20 08:04 Furosemide (Lasix) 40 mg DAILY PO 08/21/20 09:00 08/27/20 08:04 Gabapentin (Neurontin) 100 mg TID PO 08/21/20 09:00 08/27/20 08:04 Guaifenesin (Mucinex Er) 600 mg BID PO 08/21/20 09:00 08/27/20 08:04 Levothyroxine Sodium (Synthroid) 100 mcg DAILY06 PO 08/21/20 06:00 08/27/20 05:41 Lisinopril (Prinivil) 5 mg DAILY PO 08/21/20 09:00 08/21/20 16:16 DC 08/21/20 10:13 Metformin HCl (Glucophage) 500 mg BIDWMEALS PO 08/21/20 08:00 08/27/20 08:04 Metoprolol Tartrate (Lopressor) 12.5 mg BID PO 08/21/20 09:00 08/25/20 09:33 DC 08/25/20 08:32 Spironolactone (Aldactone) 25 mg DAILY PO 08/21/20 09:00 08/25/20 09:33 DC 08/25/20 08:31 Tamsulosin HCl (Flomax) 0.4 mg DAILY PO 08/21/20 09:00 08/27/20 08:05 Vitamin D (Vitamin D3) 2,000 unit DAILY PO 08/21/20 09:00 08/27/20 08:03 Guaifenesin/ Codeine Phosphate (Robitussin Ac) 10 ml PRN Q6HRS PRN PO COUGH 08/20/20 23:15 08/20/20 23:03 DC Lisinopril (Prinivil) 30 mg DAILY PO 08/21/20 09:00 08/25/20 09:33 DC 08/25/20 08:31 Magnesium Oxide (Magnesium Oxide) 400 mg DAILY PO 08/21/20 09:00 08/27/20 08:06 Multivitamins/ Calcium (Thera-M Plus) 1 tab DAILY PO 08/21/20 09:00 08/27/20 08:04 Pantoprazole Sodium (Protonix) 40 mg DAILYAC PO 08/21/20 07:30 08/27/20 08:05 Potassium Chloride (Klor-Con) 10 meq DAILYWBKFT PO 08/21/20 08:00 08/27/20 08:05 Demeclocycline HCl (Declomycin) 300 mg Q12HR PO 08/21/20 09:00 08/27/20 08:04 Sodium Chloride (Sodium Chloride Tab) 2 gm BID PO 08/21/20 09:00 08/27/20 08:03 Bupropion HCl (Wellbutrin) 200 mg BID PO 08/21/20 09:00 08/27/20 08:04 Paliperidone Palmitate (Invega Sustenna) 234 mg QMONTH IM 09/19/20 09:00 Risperidone (RisperDAL) 0.5 mg TID PO 08/21/20 09:00 08/22/20 17:29 DC 08/22/20 14:00 Risperidone (RisperDAL) 1 mg DAILY PO 08/21/20 09:00 08/21/20 00:42 DC Medroxyprogesterone Acetate (Depo-Provera Im) 150 mg Q2WKS IM 09/03/20 09:00 Oxcarbazepine (Trileptal) 600 mg DAILY PO 08/21/20 09:00 08/22/20 11:10 DC 08/22/20 08:25 Olanzapine (ZyPREXA ZYDIS) 5 mg PRN Q2HR PRN PO PSYCHOSIS 08/20/20 23:00 Guaifenesin (Robitussin) 200 mg PRN Q4HRS PRN PO COUGH 08/20/20 23:00 Acetaminophen (Tylenol) 650 mg PRN Q6HRS PRN PO MILD PAIN / TEMP > 100.3'F 08/20/20 23:00 Multi-Ingredient Ointment (Analgesic [place]) 1 muriel PRN QID PRN TP MUSCLE PAIN 08/20/20 23:00 Al Hydroxide/Mg Hydroxide (Mylanta Plus Xs) 15 ml PRN AFTMEALHC PRN PO DYSPEPSIA 08/20/20 23:00 Magnesium Hydroxide (Milk Of Magnesia) 2,400 mg PRN QHS PRN PO CONSTIPATION 08/20/20 23:00 Nicotine (Nicoderm Cq 21mg Patch) 1 patch DAILY TD 08/21/20 09:00 08/27/20 08:06 Risperidone (RisperDAL) 1 mg PRN DAILY PRN PO Anxiety/Agitation 08/21/20 00:45 Oxcarbazepine (Trileptal) 300 mg [id number] PO 08/22/20 14:00 08/26/20 15:47 DC 08/26/20 13:43 Risperidone (RisperDAL) 1 mg DAILY PO 08/23/20 09:00 08/27/20 08:05 Risperidone (RisperDAL) 0.5 mg 1400,2100 PO 08/22/20 21:00 08/23/20 19:33 DC 08/23/20 14:42 Risperidone (RisperDAL) 0.5 mg DAILY@1400 PO 08/23/20 19:30 08/26/20 13:43 Risperidone (RisperDAL) 1 mg HS PO 08/23/20 21:00 08/26/20 20:30 Lactobacillus Rhamnosus (Culturelle) 1 cap BID PO 08/24/20 21:00 08/27/20 08:05 Oxcarbazepine (Trileptal) 300 mg 1400,2100 PO 08/26/20 21:00 08/26/20 20:30 Oxcarbazepine (Trileptal) 600 mg DAILY PO 08/27/20 09:00 08/27/20 08:49 Current Medications Medications (Trade) Dose Ordered Sig/Rober Route PRN Reason Start Time Stop Time Status Last Admin Dose Admin Oxcarbazepine (Trileptal) 300 mg 1400,2100 PO 08/26/20 21:00 08/26/20 20:30 Oxcarbazepine (Trileptal) 600 mg DAILY PO 08/27/20 09:00 08/27/20 08:49 I have reviewed the current psychotropics carefully including drug interactions. Risk benefit ratio favors no change other than as noted in my dictated progress note. Diagnosis: Problems: (1) Bipolar disorder, current episode mixed, severe, with psychotic features (2) Anxiety disorder (3) Impulse control disorder (4) Schizoaffective disorder, bipolar type LEONARD ASHFORD MD Aug 27, 2020 09:46
--- NOTE | 2020-08-27 10:16 | PDOC ---
Exam Note: Rafael Note: This note is a late entry for 08/26/2020 covers elements not covered in my initial note. Subjective: The patient was seen on telehealth rounds in the afternoon of 08/26/2020 with the nursing staff taking the telehealth camera to each patient, which was on a secure portal, discussed and reviewed the chart with Carolina PERSAUD. The patient slept 8 hours previous night. The patient was found inappropriately kissing another female patient on the unit. However, this is being instigated by this female patient since they had known each other from the care home. Review of Systems: Ambulation impaired in wheelchair. No CV, , pulmonary, eye, ENT system symptoms on review. Mental Status Exam: The patient is reasonably oriented. He remains hyperverbal but redirectable. Speech coherent. Abstraction fair. Computation impaired. Language function intact. Attention span short. Mood less grandiose, affect mood congruent. Laboratory Data: Reviewed. Impression: Schizoaffective disorder, bipolar type mixed with psychotic features. Anxiety disorder unspecified. Impulse control disorder unspecified. Plan: Continue psychotropics from initial note. Increase Trileptal from 300 mg t.i.d. to 600 mg a.m. and 300 mg b.i.d. Rest unchanged for now. Hopefully the increased Trileptal will help some of his manic symptoms. We may consider Depakote but he had difficulty tolerating it in the past. Assessment: Vital Signs/I&O: Vital Signs Date Time Temp Pulse Resp B/P (MAP) Pulse Ox O2 Delivery O2 Flow Rate FiO2 08/27/20 05:53 97.4 115 18 106/76 (86) 97 08/24/20 06:06 Room Air I & O 08/26/20 08/26/20 08/27/20 15:00 23:00 07:00 Intake Total 1140 ml 600 ml Balance 1140 ml 600 ml Current Medications: Meds: Current Medications Medications (Trade) Dose Ordered Sig/Rober Route PRN Reason Start Time Stop Time Status Last Admin Dose Admin Sodium Chloride 1,000 ml @ 1,000 mls/hr 1X ONCE IV 08/20/20 18:45 08/20/20 19:44 DC 08/20/20 19:19 Aspirin (Aspirin Enteric Coated) 81 mg DAILY PO 08/21/20 09:00 08/27/20 08:03 Docusate Sodium (Colace) 100 mg BID PO 08/21/20 09:00 08/27/20 08:04 Furosemide (Lasix) 40 mg DAILY PO 08/21/20 09:00 08/27/20 08:04 Gabapentin (Neurontin) 100 mg TID PO 08/21/20 09:00 08/27/20 08:04 Guaifenesin (Mucinex Er) 600 mg BID PO 08/21/20 09:00 08/27/20 08:04 Levothyroxine Sodium (Synthroid) 100 mcg DAILY06 PO 08/21/20 06:00 08/27/20 05:41 Lisinopril (Prinivil) 5 mg DAILY PO 08/21/20 09:00 08/21/20 16:16 DC 08/21/20 10:13 Metformin HCl (Glucophage) 500 mg BIDWMEALS PO 08/21/20 08:00 08/27/20 08:04 Metoprolol Tartrate (Lopressor) 12.5 mg BID PO 08/21/20 09:00 08/25/20 09:33 DC 08/25/20 08:32 Spironolactone (Aldactone) 25 mg DAILY PO 08/21/20 09:00 08/25/20 09:33 DC 08/25/20 08:31 Tamsulosin HCl (Flomax) 0.4 mg DAILY PO 08/21/20 09:00 08/27/20 08:05 Vitamin D (Vitamin D3) 2,000 unit DAILY PO 08/21/20 09:00 08/27/20 08:03 Guaifenesin/ Codeine Phosphate (Robitussin Ac) 10 ml PRN Q6HRS PRN PO COUGH 08/20/20 23:15 08/20/20 23:03 DC Lisinopril (Prinivil) 30 mg DAILY PO 08/21/20 09:00 08/25/20 09:33 DC 08/25/20 08:31 Magnesium Oxide (Magnesium Oxide) 400 mg DAILY PO 08/21/20 09:00 08/27/20 08:06 Multivitamins/ Calcium (Thera-M Plus) 1 tab DAILY PO 08/21/20 09:00 08/27/20 08:04 Pantoprazole Sodium (Protonix) 40 mg DAILYAC PO 08/21/20 07:30 08/27/20 08:05 Potassium Chloride (Klor-Con) 10 meq DAILYWBKFT PO 08/21/20 08:00 08/27/20 08:05 Demeclocycline HCl (Declomycin) 300 mg Q12HR PO 08/21/20 09:00 08/27/20 08:04 Sodium Chloride (Sodium Chloride Tab) 2 gm BID PO 08/21/20 09:00 08/27/20 08:03 Bupropion HCl (Wellbutrin) 200 mg BID PO 08/21/20 09:00 08/27/20 08:04 Paliperidone Palmitate (Invega Sustenna) 234 mg QMONTH IM 09/19/20 09:00 Risperidone (RisperDAL) 0.5 mg TID PO 08/21/20 09:00 08/22/20 17:29 DC 08/22/20 14:00 Risperidone (RisperDAL) 1 mg DAILY PO 08/21/20 09:00 08/21/20 00:42 DC Medroxyprogesterone Acetate (Depo-Provera Im) 150 mg Q2WKS IM 09/03/20 09:00 Oxcarbazepine (Trileptal) 600 mg DAILY PO 08/21/20 09:00 08/22/20 11:10 DC 08/22/20 08:25 Olanzapine (ZyPREXA ZYDIS) 5 mg PRN Q2HR PRN PO PSYCHOSIS 08/20/20 23:00 Guaifenesin (Robitussin) 200 mg PRN Q4HRS PRN PO COUGH 08/20/20 23:00 Acetaminophen (Tylenol) 650 mg PRN Q6HRS PRN PO MILD PAIN / TEMP > 100.3'F 08/20/20 23:00 Multi-Ingredient Ointment (Analgesic [place]) 1 muriel PRN QID PRN TP MUSCLE PAIN 08/20/20 23:00 Al Hydroxide/Mg Hydroxide (Mylanta Plus Xs) 15 ml PRN AFTMEALHC PRN PO DYSPEPSIA 08/20/20 23:00 Magnesium Hydroxide (Milk Of Magnesia) 2,400 mg PRN QHS PRN PO CONSTIPATION 08/20/20 23:00 Nicotine (Nicoderm Cq 21mg Patch) 1 patch DAILY TD 08/21/20 09:00 08/27/20 08:06 Risperidone (RisperDAL) 1 mg PRN DAILY PRN PO Anxiety/Agitation 08/21/20 00:45 Oxcarbazepine (Trileptal) 300 mg [id number] PO 08/22/20 14:00 08/26/20 15:47 DC 08/26/20 13:43 Risperidone (RisperDAL) 1 mg DAILY PO 08/23/20 09:00 08/27/20 08:05 Risperidone (RisperDAL) 0.5 mg 1400,2100 PO 08/22/20 21:00 08/23/20 19:33 DC 08/23/20 14:42 Risperidone (RisperDAL) 0.5 mg DAILY@1400 PO 08/23/20 19:30 08/26/20 13:43 Risperidone (RisperDAL) 1 mg HS PO 08/23/20 21:00 08/26/20 20:30 Lactobacillus Rhamnosus (Culturelle) 1 cap BID PO 08/24/20 21:00 08/27/20 08:05 Oxcarbazepine (Trileptal) 300 mg 1400,2100 PO 08/26/20 21:00 08/26/20 20:30 Oxcarbazepine (Trileptal) 600 mg DAILY PO 08/27/20 09:00 08/27/20 08:49 Current Medications Medications (Trade) Dose Ordered Sig/Rober Route PRN Reason Start Time Stop Time Status Last Admin Dose Admin Oxcarbazepine (Trileptal) 300 mg 1400,2100 PO 08/26/20 21:00 08/26/20 20:30 Oxcarbazepine (Trileptal) 600 mg DAILY PO 08/27/20 09:00 08/27/20 08:49 I have reviewed the current psychotropics carefully including drug interactions. Risk benefit ratio favors no change other than as noted in my dictated progress note. Diagnosis: Problems: (1) Bipolar disorder, current episode mixed, severe, with psychotic features (2) Anxiety disorder (3) Impulse control disorder (4) Schizoaffective disorder, bipolar type LEONARD ASHFORD MD Aug 27, 2020 10:16
[2020-08-27] MEDS: risperiDONE 0.5 MG TABLET. PO SCH (12:58)
--- NOTE | 2020-08-27 14:27 | NUR ---
NURSING NOTE: Alert and oriented x3, able to make needs known. Affect flat, less conversational than usual. A little self-isolating today. Independent with wheelchair for mobility, able to self transfer. Denies pain at this time. No wandering or exit seeking behaviors noted. Compliant with medication regimen. Behavior today has been quiet, calm et cooperative.
[2020-08-27 16:07] VITALS: BP 105/79
--- NOTE | 2020-08-27 22:11 | PDOC ---
Exam Note: Rafael Note: Please also refer to the separate dictated note~for this date of service dictated separately.~Patient seen individually. Discussed the patient with Nursing staff reviewed the chart.~Reviewed interim history and current functioning. Reviewed vital signs,~Labs/ Radiology~and current medications noted below. Continue current treatment with the changes noted in the dictated addendum note Assessment: Vital Signs/I&O: Vital Signs Date Time Temp Pulse Resp B/P (MAP) Pulse Ox O2 Delivery O2 Flow Rate FiO2 08/27/20 16:07 97.0 98 20 105/79 (88) 94 08/24/20 06:06 Room Air I & O 08/26/20 08/26/20 08/27/20 15:00 23:00 07:00 Intake Total 1140 ml 600 ml Balance 1140 ml 600 ml Current Medications: Meds: Current Medications Medications (Trade) Dose Ordered Sig/Rober Route PRN Reason Start Time Stop Time Status Last Admin Dose Admin Sodium Chloride 1,000 ml @ 1,000 mls/hr 1X ONCE IV 08/20/20 18:45 08/20/20 19:44 DC 08/20/20 19:19 Aspirin (Aspirin Enteric Coated) 81 mg DAILY PO 08/21/20 09:00 08/27/20 08:03 Docusate Sodium (Colace) 100 mg BID PO 08/21/20 09:00 08/27/20 20:32 Furosemide (Lasix) 40 mg DAILY PO 08/21/20 09:00 08/27/20 08:04 Gabapentin (Neurontin) 100 mg TID PO 08/21/20 09:00 08/27/20 20:33 Guaifenesin (Mucinex Er) 600 mg BID PO 08/21/20 09:00 08/27/20 20:33 Levothyroxine Sodium (Synthroid) 100 mcg DAILY06 PO 08/21/20 06:00 08/27/20 05:41 Lisinopril (Prinivil) 5 mg DAILY PO 08/21/20 09:00 08/21/20 16:16 DC 08/21/20 10:13 Metformin HCl (Glucophage) 500 mg BIDWMEALS PO 08/21/20 08:00 08/27/20 17:12 Metoprolol Tartrate (Lopressor) 12.5 mg BID PO 08/21/20 09:00 08/25/20 09:33 DC 08/25/20 08:32 Spironolactone (Aldactone) 25 mg DAILY PO 08/21/20 09:00 08/25/20 09:33 DC 08/25/20 08:31 Tamsulosin HCl (Flomax) 0.4 mg DAILY PO 08/21/20 09:00 08/27/20 08:05 Vitamin D (Vitamin D3) 2,000 unit DAILY PO 08/21/20 09:00 08/27/20 08:03 Guaifenesin/ Codeine Phosphate (Robitussin Ac) 10 ml PRN Q6HRS PRN PO COUGH 08/20/20 23:15 08/20/20 23:03 DC Lisinopril (Prinivil) 30 mg DAILY PO 08/21/20 09:00 08/25/20 09:33 DC 08/25/20 08:31 Magnesium Oxide (Magnesium Oxide) 400 mg DAILY PO 08/21/20 09:00 08/27/20 08:06 Multivitamins/ Calcium (Thera-M Plus) 1 tab DAILY PO 08/21/20 09:00 08/27/20 08:04 Pantoprazole Sodium (Protonix) 40 mg DAILYAC PO 08/21/20 07:30 08/27/20 08:05 Potassium Chloride (Klor-Con) 10 meq DAILYWBKFT PO 08/21/20 08:00 08/27/20 08:05 Demeclocycline HCl (Declomycin) 300 mg Q12HR PO 08/21/20 09:00 08/27/20 20:32 Sodium Chloride (Sodium Chloride Tab) 2 gm BID PO 08/21/20 09:00 08/27/20 20:32 Bupropion HCl (Wellbutrin) 200 mg BID PO 08/21/20 09:00 08/27/20 20:32 Paliperidone Palmitate (Invega Sustenna) 234 mg QMONTH IM 09/19/20 09:00 Risperidone (RisperDAL) 0.5 mg TID PO 08/21/20 09:00 08/22/20 17:29 DC 08/22/20 14:00 Risperidone (RisperDAL) 1 mg DAILY PO 08/21/20 09:00 08/21/20 00:42 DC Medroxyprogesterone Acetate (Depo-Provera Im) 150 mg Q2WKS IM 09/03/20 09:00 Oxcarbazepine (Trileptal) 600 mg DAILY PO 08/21/20 09:00 08/22/20 11:10 DC 08/22/20 08:25 Olanzapine (ZyPREXA ZYDIS) 5 mg PRN Q2HR PRN PO PSYCHOSIS 08/20/20 23:00 Guaifenesin (Robitussin) 200 mg PRN Q4HRS PRN PO COUGH 08/20/20 23:00 Acetaminophen (Tylenol) 650 mg PRN Q6HRS PRN PO MILD PAIN / TEMP > 100.3'F 08/20/20 23:00 Multi-Ingredient Ointment (Analgesic [place]) 1 muriel PRN QID PRN TP MUSCLE PAIN 08/20/20 23:00 Al Hydroxide/Mg Hydroxide (Mylanta Plus Xs) 15 ml PRN AFTMEALHC PRN PO DYSPEPSIA 08/20/20 23:00 Magnesium Hydroxide (Milk Of Magnesia) 2,400 mg PRN QHS PRN PO CONSTIPATION 08/20/20 23:00 Nicotine (Nicoderm Cq 21mg Patch) 1 patch DAILY TD 08/21/20 09:00 08/27/20 08:06 Risperidone (RisperDAL) 1 mg PRN DAILY PRN PO Anxiety/Agitation 08/21/20 00:45 Oxcarbazepine (Trileptal) 300 mg [id number] PO 08/22/20 14:00 08/26/20 15:47 DC 08/26/20 13:43 Risperidone (RisperDAL) 1 mg DAILY PO 08/23/20 09:00 08/27/20 08:05 Risperidone (RisperDAL) 0.5 mg 1400,2100 PO 08/22/20 21:00 08/23/20 19:33 DC 08/23/20 14:42 Risperidone (RisperDAL) 0.5 mg DAILY@1400 PO 08/23/20 19:30 08/27/20 12:58 Risperidone (RisperDAL) 1 mg HS PO 08/23/20 21:00 08/27/20 20:33 Lactobacillus Rhamnosus (Culturelle) 1 cap BID PO 08/24/20 21:00 08/27/20 20:33 Oxcarbazepine (Trileptal) 300 mg 1400,2100 PO 08/26/20 21:00 08/27/20 20:32 Oxcarbazepine (Trileptal) 600 mg DAILY PO 08/27/20 09:00 08/27/20 08:49 Current Medications Medications (Trade) Dose Ordered Sig/Rober Route PRN Reason Start Time Stop Time Status Last Admin Dose Admin Oxcarbazepine (Trileptal) 600 mg DAILY PO 08/27/20 09:00 08/27/20 08:49 I have reviewed the current psychotropics carefully including drug interactions. Risk benefit ratio favors no change other than as noted in my dictated progress note. Diagnosis: Problems: (1) Bipolar disorder, current episode mixed, severe, with psychotic features (2) Anxiety disorder (3) Impulse control disorder (4) Schizoaffective disorder, bipolar type LEONARD ASHFORD MD Aug 27, 2020 22:11
[2020-08-28] MEDS: LEVOTHYROXINE 100 MCG TABLET PO SCH (05:11)
[2020-08-28] MEDS: PANTOPRAZOLE 40 MG TABLET. PO SCH (05:11)
[2020-08-28 05:56] VITALS: BP 94/64
[2020-08-28 07:24] VITALS: BP 116/83
[2020-08-28] MEDS: SODIUM CHLORIDE 1 GM TABLET PO SCH ×2 (08:01→20:16)
[2020-08-28] MEDS: DEMECLOCYCLINE HCL 150 MG TABLET. PO SCH ×2 (08:01→20:16)
[2020-08-28] MEDS: risperiDONE 1 MG TABLET. PO SCH ×2 (08:02→20:15)
[2020-08-28] MEDS: buPROPion 100 MG TABLET. PO SCH ×2 (08:02→20:14)
[2020-08-28] MEDS: CHOLECALCIFEROL (VITAMIN D3) 1,000 UNIT TABLET PO SCH (08:02)
[2020-08-28] MEDS: MULTIVITAMIN with MINERAL TABLET. PO SCH (08:02)
[2020-08-28] MEDS: metFORMIN 500 MG TABLET PO SCH ×2 (08:03→17:01)
[2020-08-28] MEDS: ASPIRIN ENTERIC COATED 81 MG TABLET.DR. PO SCH (08:03)
[2020-08-28] MEDS: POTASSIUM CHLORIDE 10 MEQ TABLET.ER. PO SCH (08:03)
[2020-08-28] MEDS: LACTOBACILLUS RHAMNOSUS GG 1 CAPSULE. PO SCH ×2 (08:03→20:13)
[2020-08-28] MEDS: DOCUSATE SODIUM 100 MG CAPSULE PO SCH ×2 (08:03→20:14)
[2020-08-28] MEDS: TAMSULOSIN 0.4 MG CAP.ER.24H. PO SCH (08:03)
[2020-08-28] MEDS: NICOTINE 21MG PATCH. TD SCH (08:04)
[2020-08-28] MEDS: FUROSEMIDE 40 MG TABLET PO SCH (08:04)
[2020-08-28] MEDS: GABAPENTIN 100 MG CAPSULE. PO SCH ×3 (08:04→20:13)
[2020-08-28] MEDS: MAGNESIUM OXIDE 400 MG TABLET PO SCH (08:05)
--- NOTE | 2020-08-28 12:55 | NUR ---
SAMIRA sent updates via fax to Leilani at facility, [facility] on [address]. Transmittal successful.
[2020-08-28] MEDS: risperiDONE 0.5 MG TABLET. PO SCH (13:49)
--- NOTE | 2020-08-28 14:11 | NUR ---
PATIENT IS CALM AND COOPERATIVE UPON ASSESSMENT, INTERACTIVE WITH PEERS AND STAFF. PATIENT HAS A PLEASANT DAY SO FAR, NO INAPPROPRIATE BEHAVIOR NOTED.
[2020-08-28 16:22] VITALS: BP 115/79
--- NOTE | 2020-08-28 22:20 | NUR ---
Patient is propelling around the unit in his wheelchair on assumption of care, rambling to no one in particular. During assessment, patient was very distracted, having an argument with a peer from his facility. When this nurse asked him to remove himself from the day room and come to the hallway, he was cooperative. Compliant with medications taken whole. No agitation. No sexually inappropriate behaviors so far this shift. He denies any pain or discomfort. Patient appears to be sleeping comfortably at present time. Will continue to monitor.
--- NOTE | 2020-08-28 22:49 | PDOC ---
Exam Note: Rafael Note: Please also refer to the separate dictated note~for this date of service dictated separately.~Patient seen individually. Discussed the patient with Nursing staff reviewed the chart.~Reviewed interim history and current functioning. Reviewed vital signs,~Labs/ Radiology~and current medications noted below. Continue current treatment with the changes noted in the dictated addendum note Assessment: Vital Signs/I&O: Vital Signs Date Time Temp Pulse Resp B/P (MAP) Pulse Ox O2 Delivery O2 Flow Rate FiO2 08/28/20 16:22 98.1 105 18 115/79 (91) 98 Room Air I & O 08/27/20 08/27/20 08/28/20 14:59 22:59 06:59 Intake Total 600 ml 480 ml Balance 600 ml 480 ml Current Medications: Meds: Current Medications Medications (Trade) Dose Ordered Sig/Rober Route PRN Reason Start Time Stop Time Status Last Admin Dose Admin Sodium Chloride 1,000 ml @ 1,000 mls/hr 1X ONCE IV 08/20/20 18:45 08/20/20 19:44 DC 08/20/20 19:19 Aspirin (Aspirin Enteric Coated) 81 mg DAILY PO 08/21/20 09:00 08/28/20 08:03 Docusate Sodium (Colace) 100 mg BID PO 08/21/20 09:00 08/28/20 20:14 Furosemide (Lasix) 40 mg DAILY PO 08/21/20 09:00 08/28/20 08:04 Gabapentin (Neurontin) 100 mg TID PO 08/21/20 09:00 08/28/20 20:13 Guaifenesin (Mucinex Er) 600 mg BID PO 08/21/20 09:00 08/28/20 20:13 Levothyroxine Sodium (Synthroid) 100 mcg DAILY06 PO 08/21/20 06:00 08/28/20 05:11 Lisinopril (Prinivil) 5 mg DAILY PO 08/21/20 09:00 08/21/20 16:16 DC 08/21/20 10:13 Metformin HCl (Glucophage) 500 mg BIDWMEALS PO 08/21/20 08:00 08/28/20 17:01 Metoprolol Tartrate (Lopressor) 12.5 mg BID PO 08/21/20 09:00 08/25/20 09:33 DC 08/25/20 08:32 Spironolactone (Aldactone) 25 mg DAILY PO 08/21/20 09:00 08/25/20 09:33 DC 08/25/20 08:31 Tamsulosin HCl (Flomax) 0.4 mg DAILY PO 08/21/20 09:00 08/28/20 08:03 Vitamin D (Vitamin D3) 2,000 unit DAILY PO 08/21/20 09:00 08/28/20 08:02 Guaifenesin/ Codeine Phosphate (Robitussin Ac) 10 ml PRN Q6HRS PRN PO COUGH 08/20/20 23:15 08/20/20 23:03 DC Lisinopril (Prinivil) 30 mg DAILY PO 08/21/20 09:00 08/25/20 09:33 DC 08/25/20 08:31 Magnesium Oxide (Magnesium Oxide) 400 mg DAILY PO 08/21/20 09:00 08/28/20 08:05 Multivitamins/ Calcium (Thera-M Plus) 1 tab DAILY PO 08/21/20 09:00 08/28/20 08:02 Pantoprazole Sodium (Protonix) 40 mg DAILYAC PO 08/21/20 07:30 08/28/20 05:11 Potassium Chloride (Klor-Con) 10 meq DAILYWBKFT PO 08/21/20 08:00 08/28/20 08:03 Demeclocycline HCl (Declomycin) 300 mg Q12HR PO 08/21/20 09:00 08/28/20 20:16 Sodium Chloride (Sodium Chloride Tab) 2 gm BID PO 08/21/20 09:00 08/28/20 20:16 Bupropion HCl (Wellbutrin) 200 mg BID PO 08/21/20 09:00 08/28/20 20:14 Paliperidone Palmitate (Invega Sustenna) 234 mg QMONTH IM 09/19/20 09:00 Risperidone (RisperDAL) 0.5 mg TID PO 08/21/20 09:00 08/22/20 17:29 DC 08/22/20 14:00 Risperidone (RisperDAL) 1 mg DAILY PO 08/21/20 09:00 08/21/20 00:42 DC Medroxyprogesterone Acetate (Depo-Provera Im) 150 mg Q2WKS IM 09/03/20 09:00 Oxcarbazepine (Trileptal) 600 mg DAILY PO 08/21/20 09:00 08/22/20 11:10 DC 08/22/20 08:25 Olanzapine (ZyPREXA ZYDIS) 5 mg PRN Q2HR PRN PO PSYCHOSIS 08/20/20 23:00 Guaifenesin (Robitussin) 200 mg PRN Q4HRS PRN PO COUGH 08/20/20 23:00 Acetaminophen (Tylenol) 650 mg PRN Q6HRS PRN PO MILD PAIN / TEMP > 100.3'F 08/20/20 23:00 Multi-Ingredient Ointment (Analgesic [place]) 1 muriel PRN QID PRN TP MUSCLE PAIN 08/20/20 23:00 Al Hydroxide/Mg Hydroxide (Mylanta Plus Xs) 15 ml PRN AFTMEALHC PRN PO DYSPEPSIA 08/20/20 23:00 Magnesium Hydroxide (Milk Of Magnesia) 2,400 mg PRN QHS PRN PO CONSTIPATION 08/20/20 23:00 Nicotine (Nicoderm Cq 21mg Patch) 1 patch DAILY TD 08/21/20 09:00 08/28/20 08:04 Risperidone (RisperDAL) 1 mg PRN DAILY PRN PO Anxiety/Agitation 08/21/20 00:45 Oxcarbazepine (Trileptal) 300 mg [id number] PO 08/22/20 14:00 08/26/20 15:47 DC 08/26/20 13:43 Risperidone (RisperDAL) 1 mg DAILY PO 08/23/20 09:00 08/28/20 08:02 Risperidone (RisperDAL) 0.5 mg 1400,2100 PO 08/22/20 21:00 08/23/20 19:33 DC 08/23/20 14:42 Risperidone (RisperDAL) 0.5 mg DAILY@1400 PO 08/23/20 19:30 08/28/20 13:49 Risperidone (RisperDAL) 1 mg HS PO 08/23/20 21:00 08/28/20 20:15 Lactobacillus Rhamnosus (Culturelle) 1 cap BID PO 08/24/20 21:00 08/28/20 20:13 Oxcarbazepine (Trileptal) 300 mg 1400,2100 PO 08/26/20 21:00 08/28/20 20:18 Oxcarbazepine (Trileptal) 600 mg DAILY PO 08/27/20 09:00 08/28/20 08:02 I have reviewed the current psychotropics carefully including drug interactions. Risk benefit ratio favors no change other than as noted in my dictated progress note. Diagnosis: Problems: (1) Bipolar disorder, current episode mixed, severe, with psychotic features (2) Anxiety disorder (3) Impulse control disorder (4) Schizoaffective disorder, bipolar type LEONARD ASHFORD MD Aug 28, 2020 22:49
[2020-08-29] MEDS: LEVOTHYROXINE 100 MCG TABLET PO SCH (05:37)
[2020-08-29 06:06] VITALS: BP 133/74
[2020-08-29] MEDS: metFORMIN 500 MG TABLET PO SCH ×2 (07:51→17:18)
[2020-08-29] MEDS: ASPIRIN ENTERIC COATED 81 MG TABLET.DR. PO SCH (07:51)
[2020-08-29] MEDS: buPROPion 100 MG TABLET. PO SCH ×2 (07:51→21:03)
[2020-08-29] MEDS: CHOLECALCIFEROL (VITAMIN D3) 1,000 UNIT TABLET PO SCH (07:51)
[2020-08-29] MEDS: PANTOPRAZOLE 40 MG TABLET. PO SCH (07:51)
[2020-08-29] MEDS: LACTOBACILLUS RHAMNOSUS GG 1 CAPSULE. PO SCH ×2 (07:52→21:02)
[2020-08-29] MEDS: SODIUM CHLORIDE 1 GM TABLET PO SCH ×2 (07:52→21:02)
[2020-08-29] MEDS: GABAPENTIN 100 MG CAPSULE. PO SCH ×3 (07:52→21:03)
[2020-08-29] MEDS: MULTIVITAMIN with MINERAL TABLET. PO SCH (07:52)
[2020-08-29] MEDS: TAMSULOSIN 0.4 MG CAP.ER.24H. PO SCH (07:52)
[2020-08-29] MEDS: POTASSIUM CHLORIDE 10 MEQ TABLET.ER. PO SCH (07:52)
[2020-08-29] MEDS: risperiDONE 1 MG TABLET. PO SCH ×2 (07:53→21:03)
[2020-08-29] MEDS: DOCUSATE SODIUM 100 MG CAPSULE PO SCH ×2 (07:53→21:02)
[2020-08-29] MEDS: FUROSEMIDE 40 MG TABLET PO SCH (07:53)
[2020-08-29] MEDS: NICOTINE 21MG PATCH. TD SCH (07:54)
[2020-08-29] MEDS: MAGNESIUM OXIDE 400 MG TABLET PO SCH (07:54)
[2020-08-29] MEDS: DEMECLOCYCLINE HCL 150 MG TABLET. PO SCH ×2 (08:51→21:02)
--- NOTE | 2020-08-29 09:25 | PDOC ---
Exam Note: Rafael Note: This note is a late entry for 08/27/2020 covers elements not covered in my initial note. Subjective: The patient was seen on telehealth rounds in the afternoon of 08/27/2020 with the nursing staff taking the telehealth camera to each patient, which was on a secure portal, discussed and reviewed the chart with Chasity PERSAUD. The patient slept 8 hours previous night. Appetite is 90%. He is not very verbal per nursing report but when I met with him, he remained quite hyperverbal, anxious, grandiose. Review of Systems: Ambulation impaired in wheelchair. No CV, , pulmonary, eye, ENT system symptoms on review. Mental Status Exam: The patient is reasonably oriented. He remains hyperverbal with some loose associations but generally less paranoid. Speech coherent. Abstraction fair. Computation impaired. Language function intact. Attention span short. Mood and affect somewhat animated, grandiose. No suicidal or homicidal ideation. Laboratory Data: Reviewed. Impression: Schizoaffective disorder, bipolar type mixed with psychotic features. Anxiety disorder unspecified. Impulse control disorder unspecified. Plan: Continue psychotropics from initial note. He has not been sexually inappropriate with the other female patient on the unit as before. We will not increase his Risperdal any further just yet maintain Trileptal at current dosage. Adjust further as clinically indicated. Assessment: Vital Signs/I&O: Vital Signs Date Time Temp Pulse Resp B/P (MAP) Pulse Ox O2 Delivery O2 Flow Rate FiO2 08/29/20 06:06 97.4 98 16 133/74 (93) 97 Room Air I & O 08/28/20 08/28/20 08/29/20 14:59 22:59 06:59 Intake Total 720 ml 600 ml Balance 720 ml 600 ml Labs: Laboratory Tests Test 08/29/20 08:02 Glucose (Fingerstick) 118 mg/dL (70-99) H Current Medications: Meds: Laboratory Tests Test 08/29/20 08:02 Glucose (Fingerstick) 118 mg/dL Current Medications Medications (Trade) Dose Ordered Sig/Rober Route PRN Reason Start Time Stop Time Status Last Admin Dose Admin Sodium Chloride 1,000 ml @ 1,000 mls/hr 1X ONCE IV 08/20/20 18:45 08/20/20 19:44 DC 08/20/20 19:19 Aspirin (Aspirin Enteric Coated) 81 mg DAILY PO 08/21/20 09:00 08/29/20 07:51 Docusate Sodium (Colace) 100 mg BID PO 08/21/20 09:00 08/29/20 07:53 Furosemide (Lasix) 40 mg DAILY PO 08/21/20 09:00 08/29/20 07:53 Gabapentin (Neurontin) 100 mg TID PO 08/21/20 09:00 08/29/20 07:52 Guaifenesin (Mucinex Er) 600 mg BID PO 08/21/20 09:00 08/29/20 07:51 Levothyroxine Sodium (Synthroid) 100 mcg DAILY06 PO 08/21/20 06:00 08/29/20 05:37 Lisinopril (Prinivil) 5 mg DAILY PO 08/21/20 09:00 08/21/20 16:16 DC 08/21/20 10:13 Metformin HCl (Glucophage) 500 mg BIDWMEALS PO 08/21/20 08:00 08/29/20 07:51 Metoprolol Tartrate (Lopressor) 12.5 mg BID PO 08/21/20 09:00 08/25/20 09:33 DC 08/25/20 08:32 Spironolactone (Aldactone) 25 mg DAILY PO 08/21/20 09:00 08/25/20 09:33 DC 08/25/20 08:31 Tamsulosin HCl (Flomax) 0.4 mg DAILY PO 08/21/20 09:00 08/29/20 07:52 Vitamin D (Vitamin D3) 2,000 unit DAILY PO 08/21/20 09:00 08/29/20 07:51 Guaifenesin/ Codeine Phosphate (Robitussin Ac) 10 ml PRN Q6HRS PRN PO COUGH 08/20/20 23:15 08/20/20 23:03 DC Lisinopril (Prinivil) 30 mg DAILY PO 08/21/20 09:00 08/25/20 09:33 DC 08/25/20 08:31 Magnesium Oxide (Magnesium Oxide) 400 mg DAILY PO 08/21/20 09:00 08/29/20 07:54 Multivitamins/ Calcium (Thera-M Plus) 1 tab DAILY PO 08/21/20 09:00 08/29/20 07:52 Pantoprazole Sodium (Protonix) 40 mg DAILYAC PO 08/21/20 07:30 08/29/20 07:51 Potassium Chloride (Klor-Con) 10 meq DAILYWBKFT PO 08/21/20 08:00 08/29/20 07:52 Demeclocycline HCl (Declomycin) 300 mg Q12HR PO 08/21/20 09:00 08/28/20 20:16 Sodium Chloride (Sodium Chloride Tab) 2 gm BID PO 08/21/20 09:00 08/29/20 07:52 Bupropion HCl (Wellbutrin) 200 mg BID PO 08/21/20 09:00 08/29/20 07:51 Paliperidone Palmitate (Invega Sustenna) 234 mg QMONTH IM 09/19/20 09:00 Risperidone (RisperDAL) 0.5 mg TID PO 08/21/20 09:00 08/22/20 17:29 DC 08/22/20 14:00 Risperidone (RisperDAL) 1 mg DAILY PO 08/21/20 09:00 08/21/20 00:42 DC Medroxyprogesterone Acetate (Depo-Provera Im) 150 mg Q2WKS IM 09/03/20 09:00 Oxcarbazepine (Trileptal) 600 mg DAILY PO 08/21/20 09:00 08/22/20 11:10 DC 08/22/20 08:25 Olanzapine (ZyPREXA ZYDIS) 5 mg PRN Q2HR PRN PO PSYCHOSIS 08/20/20 23:00 Guaifenesin (Robitussin) 200 mg PRN Q4HRS PRN PO COUGH 08/20/20 23:00 Acetaminophen (Tylenol) 650 mg PRN Q6HRS PRN PO MILD PAIN / TEMP > 100.3'F 08/20/20 23:00 Multi-Ingredient Ointment (Analgesic [place]) 1 muriel PRN QID PRN TP MUSCLE PAIN 08/20/20 23:00 Al Hydroxide/Mg Hydroxide (Mylanta Plus Xs) 15 ml PRN AFTMEALHC PRN PO DYSPEPSIA 08/20/20 23:00 Magnesium Hydroxide (Milk Of Magnesia) 2,400 mg PRN QHS PRN PO CONSTIPATION 08/20/20 23:00 Nicotine (Nicoderm Cq 21mg Patch) 1 patch DAILY TD 08/21/20 09:00 08/29/20 07:54 Risperidone (RisperDAL) 1 mg PRN DAILY PRN PO Anxiety/Agitation 08/21/20 00:45 Oxcarbazepine (Trileptal) 300 mg [id number] PO 08/22/20 14:00 08/26/20 15:47 DC 08/26/20 13:43 Risperidone (RisperDAL) 1 mg DAILY PO 08/23/20 09:00 08/29/20 07:53 Risperidone (RisperDAL) 0.5 mg 1400,2100 PO 08/22/20 21:00 08/23/20 19:33 DC 08/23/20 14:42 Risperidone (RisperDAL) 0.5 mg DAILY@1400 PO 08/23/20 19:30 08/28/20 13:49 Risperidone (RisperDAL) 1 mg HS PO 08/23/20 21:00 08/28/20 20:15 Lactobacillus Rhamnosus (Culturelle) 1 cap BID PO 08/24/20 21:00 08/29/20 07:52 Oxcarbazepine (Trileptal) 300 mg 1400,2100 PO 08/26/20 21:00 08/28/20 20:18 Oxcarbazepine (Trileptal) 600 mg DAILY PO 08/27/20 09:00 08/29/20 07:54 I have reviewed the current psychotropics carefully including drug interactions. Risk benefit ratio favors no change other than as noted in my dictated progress note. Diagnosis: Problems: (1) Bipolar disorder, current episode mixed, severe, with psychotic features (2) Anxiety disorder (3) Impulse control disorder (4) Schizoaffective disorder, bipolar type LEONARD ASHFORD MD Aug 29, 2020 09:25
--- NOTE | 2020-08-29 12:11 | NUR ---
WEEKLY ACTIVITY THERAPY NOTE Date of Admission:08/20/20 Date of AT Assessment: 08/22 Precipitating behaviors that initiated intake and admission:SIB, being inappropriate with young aides, yelling, agitated, throwing stuff in the hallway, threatening to kill staff, slapped peer on the arm, name calling, belligerent. Goal aimed: to increase positive social interaction Initial Goal: Pt. will participate in all Activity Therapy groups offered, in an appropriate manner towards staff and peers. Weekly progress towards goal: did not achieve, 08/07 Group participation level: 4 min, 2 mod Weekly highlights: answered trivia questions , balloon bop group , answered sentence starter questions Wednesday, socialized during music [employer] Wednesday Behaviors observed: limited interest in groups, pleasant Plan: no change to goal Beneficial adaptations: redirection needed at times
[2020-08-29] MEDS: risperiDONE 0.5 MG TABLET. PO SCH (13:14)
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
--- NOTE | 2020-08-29 16:44 | NUR ---
PATIENT HAD A PLEASANT SHIFT, SOCIALIZING IN A DAY ROOM, PARTICIPATING IN A GROUP SESSIONS, COOPERATIVE AND COMPLIANT, NO INAPPROPRIATE BEHAVIOR NOTED.
[2020-08-29 16:46] VITALS: BP 116/81
--- NOTE | 2020-08-29 22:14 | PDOC ---
Exam Note: Rafael Note: Please also refer to the separate dictated note~for this date of service dictated separately.~Patient seen individually. Discussed the patient with Nursing staff reviewed the chart.~Reviewed interim history and current functioning. Reviewed vital signs,~Labs/ Radiology~and current medications noted below. Continue current treatment with the changes noted in the dictated addendum note Assessment: Vital Signs/I&O: Vital Signs Date Time Temp Pulse Resp B/P (MAP) Pulse Ox O2 Delivery O2 Flow Rate FiO2 08/29/20 16:46 97.5 102 20 116/81 (93) 96 Room Air I & O 08/28/20 08/28/20 08/29/20 15:00 23:00 07:00 Intake Total 720 ml 600 ml Balance 720 ml 600 ml Labs: Laboratory Tests Test 08/29/20 08:02 Glucose (Fingerstick) 118 mg/dL (70-99) H Current Medications: Meds: Laboratory Tests Test 08/29/20 08:02 Glucose (Fingerstick) 118 mg/dL Current Medications Medications (Trade) Dose Ordered Sig/Rober Route PRN Reason Start Time Stop Time Status Last Admin Dose Admin Sodium Chloride 1,000 ml @ 1,000 mls/hr 1X ONCE IV 08/20/20 18:45 08/20/20 19:44 DC 08/20/20 19:19 Aspirin (Aspirin Enteric Coated) 81 mg DAILY PO 08/21/20 09:00 08/29/20 07:51 Docusate Sodium (Colace) 100 mg BID PO 08/21/20 09:00 08/29/20 21:02 Furosemide (Lasix) 40 mg DAILY PO 08/21/20 09:00 08/29/20 07:53 Gabapentin (Neurontin) 100 mg TID PO 08/21/20 09:00 08/29/20 21:03 Guaifenesin (Mucinex Er) 600 mg BID PO 08/21/20 09:00 08/29/20 21:02 Levothyroxine Sodium (Synthroid) 100 mcg DAILY06 PO 08/21/20 06:00 08/29/20 05:37 Lisinopril (Prinivil) 5 mg DAILY PO 08/21/20 09:00 08/21/20 16:16 DC 08/21/20 10:13 Metformin HCl (Glucophage) 500 mg BIDWMEALS PO 08/21/20 08:00 08/29/20 17:18 Metoprolol Tartrate (Lopressor) 12.5 mg BID PO 08/21/20 09:00 08/25/20 09:33 DC 08/25/20 08:32 Spironolactone (Aldactone) 25 mg DAILY PO 08/21/20 09:00 08/25/20 09:33 DC 08/25/20 08:31 Tamsulosin HCl (Flomax) 0.4 mg DAILY PO 08/21/20 09:00 08/29/20 07:52 Vitamin D (Vitamin D3) 2,000 unit DAILY PO 08/21/20 09:00 08/29/20 07:51 Guaifenesin/ Codeine Phosphate (Robitussin Ac) 10 ml PRN Q6HRS PRN PO COUGH 08/20/20 23:15 08/20/20 23:03 DC Lisinopril (Prinivil) 30 mg DAILY PO 08/21/20 09:00 08/25/20 09:33 DC 08/25/20 08:31 Magnesium Oxide (Magnesium Oxide) 400 mg DAILY PO 08/21/20 09:00 08/29/20 07:54 Multivitamins/ Calcium (Thera-M Plus) 1 tab DAILY PO 08/21/20 09:00 08/29/20 07:52 Pantoprazole Sodium (Protonix) 40 mg DAILYAC PO 08/21/20 07:30 08/29/20 07:51 Potassium Chloride (Klor-Con) 10 meq DAILYWBKFT PO 08/21/20 08:00 08/29/20 07:52 Demeclocycline HCl (Declomycin) 300 mg Q12HR PO 08/21/20 09:00 08/29/20 21:02 Sodium Chloride (Sodium Chloride Tab) 2 gm BID PO 08/21/20 09:00 08/29/20 21:02 Bupropion HCl (Wellbutrin) 200 mg BID PO 08/21/20 09:00 08/29/20 21:03 Paliperidone Palmitate (Invega Sustenna) 234 mg QMONTH IM 09/19/20 09:00 Risperidone (RisperDAL) 0.5 mg TID PO 08/21/20 09:00 08/22/20 17:29 DC 08/22/20 14:00 Risperidone (RisperDAL) 1 mg DAILY PO 08/21/20 09:00 08/21/20 00:42 DC Medroxyprogesterone Acetate (Depo-Provera Im) 150 mg Q2WKS IM 09/03/20 09:00 Oxcarbazepine (Trileptal) 600 mg DAILY PO 08/21/20 09:00 08/22/20 11:10 DC 08/22/20 08:25 Olanzapine (ZyPREXA ZYDIS) 5 mg PRN Q2HR PRN PO PSYCHOSIS 08/20/20 23:00 Guaifenesin (Robitussin) 200 mg PRN Q4HRS PRN PO COUGH 08/20/20 23:00 Acetaminophen (Tylenol) 650 mg PRN Q6HRS PRN PO MILD PAIN / TEMP > 100.3'F 08/20/20 23:00 Multi-Ingredient Ointment (Analgesic [place]) 1 muriel PRN QID PRN TP MUSCLE PAIN 08/20/20 23:00 Al Hydroxide/Mg Hydroxide (Mylanta Plus Xs) 15 ml PRN AFTMEALHC PRN PO DYSPEPSIA 08/20/20 23:00 Magnesium Hydroxide (Milk Of Magnesia) 2,400 mg PRN QHS PRN PO CONSTIPATION 08/20/20 23:00 Nicotine (Nicoderm Cq 21mg Patch) 1 patch DAILY TD 08/21/20 09:00 08/29/20 07:54 Risperidone (RisperDAL) 1 mg PRN DAILY PRN PO Anxiety/Agitation 08/21/20 00:45 Oxcarbazepine (Trileptal) 300 mg [id number] PO 08/22/20 14:00 08/26/20 15:47 DC 08/26/20 13:43 Risperidone (RisperDAL) 1 mg DAILY PO 08/23/20 09:00 08/29/20 07:53 Risperidone (RisperDAL) 0.5 mg 1400,2100 PO 08/22/20 21:00 08/23/20 19:33 DC 08/23/20 14:42 Risperidone (RisperDAL) 0.5 mg DAILY@1400 PO 08/23/20 19:30 08/29/20 13:14 Risperidone (RisperDAL) 1 mg HS PO 08/23/20 21:00 08/29/20 21:03 Lactobacillus Rhamnosus (Culturelle) 1 cap BID PO 08/24/20 21:00 08/29/20 21:02 Oxcarbazepine (Trileptal) 300 mg 1400,2100 PO 08/26/20 21:00 08/29/20 21:02 Oxcarbazepine (Trileptal) 600 mg DAILY PO 08/27/20 09:00 08/29/20 07:54 I have reviewed the current psychotropics carefully including drug interactions. Risk benefit ratio favors no change other than as noted in my dictated progress note. Diagnosis: Problems: (1) Bipolar disorder, current episode mixed, severe, with psychotic features (2) Anxiety disorder (3) Impulse control disorder (4) Schizoaffective disorder, bipolar type LEONARD ASHFORD MD Aug 29, 2020 22:14
--- NOTE | 2020-08-30 01:05 | NUR ---
Nursing Note The patient was located in the day room and his room for his assessment and medication pass. The patient took his medication whole and was appropriate during interactions with this nurse. The patient talked about his day and about his concerns with the facility he lives at. The patient reports that he feels his community mental health social worker at the facility is holding up his discharge from this hospital. The patient is currently sleeping in his room.
[2020-08-30 06:01] VITALS: BP 126/83
[2020-08-30] MEDS: LEVOTHYROXINE 100 MCG TABLET PO SCH (06:22)
[2020-08-30] MEDS: PANTOPRAZOLE 40 MG TABLET. PO SCH (07:30)
[2020-08-30] MEDS: DEMECLOCYCLINE HCL 150 MG TABLET. PO SCH ×2 (08:06→21:35)
[2020-08-30] MEDS: risperiDONE 1 MG TABLET. PO SCH ×2 (08:06→21:36)
[2020-08-30] MEDS: SODIUM CHLORIDE 1 GM TABLET PO SCH ×2 (08:06→21:36)
[2020-08-30] MEDS: POTASSIUM CHLORIDE 10 MEQ TABLET.ER. PO SCH (08:06)
[2020-08-30] MEDS: CHOLECALCIFEROL (VITAMIN D3) 1,000 UNIT TABLET PO SCH (08:06)
[2020-08-30] MEDS: LACTOBACILLUS RHAMNOSUS GG 1 CAPSULE. PO SCH ×2 (08:07→21:36)
[2020-08-30] MEDS: TAMSULOSIN 0.4 MG CAP.ER.24H. PO SCH (08:07)
[2020-08-30] MEDS: metFORMIN 500 MG TABLET PO SCH ×2 (08:07→17:14)
[2020-08-30] MEDS: buPROPion 100 MG TABLET. PO SCH ×2 (08:07→21:36)
[2020-08-30] MEDS: DOCUSATE SODIUM 100 MG CAPSULE PO SCH ×2 (08:07→21:36)
[2020-08-30] MEDS: ASPIRIN ENTERIC COATED 81 MG TABLET.DR. PO SCH (08:07)
[2020-08-30] MEDS: GABAPENTIN 100 MG CAPSULE. PO SCH ×3 (08:08→21:36)
[2020-08-30] MEDS: MULTIVITAMIN with MINERAL TABLET. PO SCH (08:08)
[2020-08-30] MEDS: MAGNESIUM OXIDE 400 MG TABLET PO SCH (08:08)
[2020-08-30] MEDS: FUROSEMIDE 40 MG TABLET PO SCH (08:08)
[2020-08-30] MEDS: NICOTINE 21MG PATCH. TD SCH (08:09)
[2020-08-30] MEDS: risperiDONE 0.5 MG TABLET. PO SCH (14:48)
[2020-08-30 16:03] VITALS: BP 159/93
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
--- NOTE | 2020-08-30 22:43 | PDOC ---
Exam Note: Rafael Note: This note is a late entry for 08/29/2020 covers elements not covered in my initial note. Subjective: The patient was reviewed on telehealth rounds in the morning of 08/29/2020 as an option during the COVID-19 pandemic period for a treatment team meeting with Maria Mehta, Annalisa Jolley (dialysis social worker), Tomeka, activity therapy and Adriana PERSAUD, discussed and reviewed the chart. We discussed the patients diagnoses, progress, current psychotropics, reviewed drug interactions, risk-benefit ratio of current psychotropics. The patient slept 6- 1/2 hours previous night. The patient has been pleasant, cooperative. No inappropriate sexual behaviors with the other female patient on the unit. He needed help with toilet paper since he had urinated on the floor but not disruptive about this. Review of Systems: Gait unsteady in wheelchair. No CV, , pulmonary, eye, ENT system symptoms on review. Mental Status Exam: The patient is reasonably oriented. Speech coherent. Abstraction fair. Computation impaired. Language function intact. Attention span short. Mood and affect grandiose. No suicidal or homicidal ideation. Laboratory Data: Reviewed. Impression: Schizoaffective disorder, bipolar type mixed with psychotic features. Anxiety disorder unspecified. Impulse control disorder unspecified. Plan: Continue psychotropics from initial note. Assessment: Vital Signs/I&O: Vital Signs Date Time Temp Pulse Resp B/P (MAP) Pulse Ox O2 Delivery O2 Flow Rate FiO2 08/30/20 16:03 97.4 104 18 159/93 (115) 96 08/30/20 06:01 Room Air I & O 08/29/20 08/29/20 08/30/20 15:00 23:00 07:00 Intake Total 600 ml 240 ml 240 ml Balance 600 ml 240 ml 240 ml Labs: Laboratory Tests Test 08/30/20 07:59 Glucose (Fingerstick) 114 mg/dL (70-99) H Current Medications: Meds: Laboratory Tests Test 08/30/20 07:59 Glucose (Fingerstick) 114 mg/dL Current Medications Medications (Trade) Dose Ordered Sig/Rober Route PRN Reason Start Time Stop Time Status Last Admin Dose Admin Sodium Chloride 1,000 ml @ 1,000 mls/hr 1X ONCE IV 08/20/20 18:45 08/20/20 19:44 DC 08/20/20 19:19 Aspirin (Aspirin Enteric Coated) 81 mg DAILY PO 08/21/20 09:00 08/30/20 08:07 Docusate Sodium (Colace) 100 mg BID PO 08/21/20 09:00 08/30/20 21:36 Furosemide (Lasix) 40 mg DAILY PO 08/21/20 09:00 08/30/20 08:08 Gabapentin (Neurontin) 100 mg TID PO 08/21/20 09:00 08/30/20 21:36 Guaifenesin (Mucinex Er) 600 mg BID PO 08/21/20 09:00 08/30/20 21:36 Levothyroxine Sodium (Synthroid) 100 mcg DAILY06 PO 08/21/20 06:00 08/30/20 06:22 Lisinopril (Prinivil) 5 mg DAILY PO 08/21/20 09:00 08/21/20 16:16 DC 08/21/20 10:13 Metformin HCl (Glucophage) 500 mg BIDWMEALS PO 08/21/20 08:00 08/30/20 17:14 Metoprolol Tartrate (Lopressor) 12.5 mg BID PO 08/21/20 09:00 08/25/20 09:33 DC 08/25/20 08:32 Spironolactone (Aldactone) 25 mg DAILY PO 08/21/20 09:00 08/25/20 09:33 DC 08/25/20 08:31 Tamsulosin HCl (Flomax) 0.4 mg DAILY PO 08/21/20 09:00 08/30/20 08:07 Vitamin D (Vitamin D3) 2,000 unit DAILY PO 08/21/20 09:00 08/30/20 08:06 Guaifenesin/ Codeine Phosphate (Robitussin Ac) 10 ml PRN Q6HRS PRN PO COUGH 08/20/20 23:15 08/20/20 23:03 DC Lisinopril (Prinivil) 30 mg DAILY PO 08/21/20 09:00 08/25/20 09:33 DC 08/25/20 08:31 Magnesium Oxide (Magnesium Oxide) 400 mg DAILY PO 08/21/20 09:00 08/30/20 08:08 Multivitamins/ Calcium (Thera-M Plus) 1 tab DAILY PO 08/21/20 09:00 08/30/20 08:08 Pantoprazole Sodium (Protonix) 40 mg DAILYAC PO 08/21/20 07:30 08/30/20 07:30 Potassium Chloride (Klor-Con) 10 meq DAILYWBKFT PO 08/21/20 08:00 08/30/20 08:06 Demeclocycline HCl (Declomycin) 300 mg Q12HR PO 08/21/20 09:00 08/30/20 21:35 Sodium Chloride (Sodium Chloride Tab) 2 gm BID PO 08/21/20 09:00 08/30/20 21:36 Bupropion HCl (Wellbutrin) 200 mg BID PO 08/21/20 09:00 08/30/20 21:36 Paliperidone Palmitate (Invega Sustenna) 234 mg QMONTH IM 09/19/20 09:00 Risperidone (RisperDAL) 0.5 mg TID PO 08/21/20 09:00 08/22/20 17:29 DC 08/22/20 14:00 Risperidone (RisperDAL) 1 mg DAILY PO 08/21/20 09:00 08/21/20 00:42 DC Medroxyprogesterone Acetate (Depo-Provera Im) 150 mg Q2WKS IM 09/03/20 09:00 Oxcarbazepine (Trileptal) 600 mg DAILY PO 08/21/20 09:00 08/22/20 11:10 DC 08/22/20 08:25 Olanzapine (ZyPREXA ZYDIS) 5 mg PRN Q2HR PRN PO PSYCHOSIS 08/20/20 23:00 Guaifenesin (Robitussin) 200 mg PRN Q4HRS PRN PO COUGH 08/20/20 23:00 Acetaminophen (Tylenol) 650 mg PRN Q6HRS PRN PO MILD PAIN / TEMP > 100.3'F 08/20/20 23:00 Multi-Ingredient Ointment (Analgesic [place]) 1 muriel PRN QID PRN TP MUSCLE PAIN 08/20/20 23:00 Al Hydroxide/Mg Hydroxide (Mylanta Plus Xs) 15 ml PRN AFTMEALHC PRN PO DYSPEPSIA 08/20/20 23:00 Magnesium Hydroxide (Milk Of Magnesia) 2,400 mg PRN QHS PRN PO CONSTIPATION 08/20/20 23:00 Nicotine (Nicoderm Cq 21mg Patch) 1 patch DAILY TD 08/21/20 09:00 08/30/20 08:09 Risperidone (RisperDAL) 1 mg PRN DAILY PRN PO Anxiety/Agitation 08/21/20 00:45 Oxcarbazepine (Trileptal) 300 mg [id number] PO 08/22/20 14:00 08/26/20 15:47 DC 08/26/20 13:43 Risperidone (RisperDAL) 1 mg DAILY PO 08/23/20 09:00 08/30/20 08:06 Risperidone (RisperDAL) 0.5 mg 1400,2100 PO 08/22/20 21:00 08/23/20 19:33 DC 08/23/20 14:42 Risperidone (RisperDAL) 0.5 mg DAILY@1400 PO 08/23/20 19:30 08/30/20 14:48 Risperidone (RisperDAL) 1 mg HS PO 08/23/20 21:00 08/30/20 21:36 Lactobacillus Rhamnosus (Culturelle) 1 cap BID PO 08/24/20 21:00 08/30/20 21:36 Oxcarbazepine (Trileptal) 300 mg 1400,2100 PO 08/26/20 21:00 08/30/20 21:36 Oxcarbazepine (Trileptal) 600 mg DAILY PO 08/27/20 09:00 08/30/20 08:07 I have reviewed the current psychotropics carefully including drug interactions. Risk benefit ratio favors no change other than as noted in my dictated progress note. Diagnosis: Problems: (1) Bipolar disorder, current episode mixed, severe, with psychotic features (2) Anxiety disorder (3) Impulse control disorder (4) Schizoaffective disorder, bipolar type LEONARD ASHFORD MD Aug 30, 2020 22:43
--- NOTE | 2020-08-30 22:51 | PDOC ---
Exam Note: Rafael Note: Please also refer to the separate dictated note~for this date of service dictated separately.~Patient seen individually. Discussed the patient with Nursing staff reviewed the chart.~Reviewed interim history and current functioning. Reviewed vital signs,~Labs/ Radiology~and current medications noted below. Continue current treatment with the changes noted in the dictated addendum note Assessment: Vital Signs/I&O: Vital Signs Date Time Temp Pulse Resp B/P (MAP) Pulse Ox O2 Delivery O2 Flow Rate FiO2 08/30/20 16:03 97.4 104 18 159/93 (115) 96 08/30/20 06:01 Room Air I & O 08/29/20 08/29/20 08/30/20 15:00 23:00 07:00 Intake Total 600 ml 240 ml 240 ml Balance 600 ml 240 ml 240 ml Labs: Laboratory Tests Test 08/30/20 07:59 Glucose (Fingerstick) 114 mg/dL (70-99) H Current Medications: I have reviewed the current psychotropics carefully including drug interactions. Risk benefit ratio favors no change other than as noted in my dictated progress note. Diagnosis: Problems: (1) Bipolar disorder, current episode mixed, severe, with psychotic features (2) Anxiety disorder (3) Impulse control disorder (4) Schizoaffective disorder, bipolar type LEONARD ASHFORD MD Aug 30, 2020 22:51
--- NOTE | 2020-08-30 23:12 | NUR ---
Nursing note: Pt calm, compliant with meds and cares, no issues with inappropriate behavior towards staff.
[2020-08-31] MEDS: LEVOTHYROXINE 100 MCG TABLET PO SCH (05:26)
[2020-08-31 06:00] VITALS: BP 126/75
[2020-08-31] MEDS: POTASSIUM CHLORIDE 10 MEQ TABLET.ER. PO SCH (08:00)
[2020-08-31] MEDS: NICOTINE 21MG PATCH. TD SCH (08:32)
[2020-08-31] MEDS: SODIUM CHLORIDE 1 GM TABLET PO SCH ×2 (08:34→20:05)
[2020-08-31] MEDS: ASPIRIN ENTERIC COATED 81 MG TABLET.DR. PO SCH (08:34)
[2020-08-31] MEDS: DOCUSATE SODIUM 100 MG CAPSULE PO SCH ×2 (08:34→20:05)
[2020-08-31] MEDS: PANTOPRAZOLE 40 MG TABLET. PO SCH (08:34)
[2020-08-31] MEDS: DEMECLOCYCLINE HCL 150 MG TABLET. PO SCH ×2 (08:34→20:05)
[2020-08-31] MEDS: MULTIVITAMIN with MINERAL TABLET. PO SCH (08:34)
[2020-08-31] MEDS: risperiDONE 1 MG TABLET. PO SCH ×2 (08:35→20:05)
[2020-08-31] MEDS: metFORMIN 500 MG TABLET PO SCH ×2 (08:35→17:26)
[2020-08-31] MEDS: LACTOBACILLUS RHAMNOSUS GG 1 CAPSULE. PO SCH ×2 (08:35→20:06)
[2020-08-31] MEDS: TAMSULOSIN 0.4 MG CAP.ER.24H. PO SCH (08:35)
[2020-08-31] MEDS: FUROSEMIDE 40 MG TABLET PO SCH (08:35)
[2020-08-31] MEDS: GABAPENTIN 100 MG CAPSULE. PO SCH ×3 (08:35→20:06)
[2020-08-31] MEDS: CHOLECALCIFEROL (VITAMIN D3) 1,000 UNIT TABLET PO SCH (08:36)
[2020-08-31] MEDS: buPROPion 100 MG TABLET. PO SCH ×2 (08:36→20:05)
[2020-08-31] MEDS: MAGNESIUM OXIDE 400 MG TABLET PO SCH (08:36)
--- NOTE | 2020-08-31 11:47 | NUR ---
Nursing note: Patient in dinning room for morning medications & assessment, took pills whole. He denies SI/HI/VH/AH/AH/delusions. He reported chronic lower back pain 10/08. Patient is alert & oriented X4. He is calm, compliant, social with peers & staff. He self propels in wheel chair. He is currently sitting in eng. Plan of care continues, will continue to monitor.
[2020-08-31] MEDS: MAGNESIUM HYDROXIDE 2,400 MG/30 ML ORAL.SUSP. PO PRN (13:26)
[2020-08-31] MEDS: risperiDONE 0.5 MG TABLET. PO SCH (14:11)
[2020-08-31 15:40] VITALS: BP 150/86
--- NOTE | 2020-08-31 22:30 | PDOC ---
Exam Note: Rafael Note: Please also refer to the separate dictated note~for this date of service dictated separately.~Patient seen individually. Discussed the patient with Nursing staff reviewed the chart.~Reviewed interim history and current functioning. Reviewed vital signs,~Labs/ Radiology~and current medications noted below. Continue current treatment with the changes noted in the dictated addendum note Assessment: Vital Signs/I&O: Vital Signs Date Time Temp Pulse Resp B/P (MAP) Pulse Ox O2 Delivery O2 Flow Rate FiO2 08/31/20 15:40 98.4 89 20 150/86 (107) 98 08/31/20 06:00 Room Air I & O 08/30/20 08/30/20 08/31/20 15:00 23:00 07:00 Intake Total 1010 ml 480 ml Balance 1010 ml 480 ml Labs: Laboratory Tests Test 08/31/20 07:19 Glucose (Fingerstick) 117 mg/dL (70-99) H Current Medications: I have reviewed the current psychotropics carefully including drug interactions. Risk benefit ratio favors no change other than as noted in my dictated progress note. Diagnosis: Problems: (1) Bipolar disorder, current episode mixed, severe, with psychotic features (2) Anxiety disorder (3) Impulse control disorder (4) Schizoaffective disorder, bipolar type LEONARD ASHFORD MD Aug 31, 2020 22:30
--- NOTE | 2020-08-31 22:54 | NUR ---
Pt laying in bed on assessment. Pt calm and compliant with medication and assessment. Pt social and interactive with staff. Pt denies pain at this time. No behaviors noted at this time.
[2020-09-01 05:45] VITALS: BP 145/89
[2020-09-01] MEDS: LEVOTHYROXINE 100 MCG TABLET PO SCH (06:00)
[2020-09-01] MEDS: NICOTINE 21MG PATCH. TD SCH (08:29)
[2020-09-01] MEDS: POTASSIUM CHLORIDE 10 MEQ TABLET.ER. PO SCH (08:30)
[2020-09-01] MEDS: LACTOBACILLUS RHAMNOSUS GG 1 CAPSULE. PO SCH ×2 (08:30→20:44)
[2020-09-01] MEDS: metFORMIN 500 MG TABLET PO SCH ×2 (08:30→16:36)
[2020-09-01] MEDS: ASPIRIN ENTERIC COATED 81 MG TABLET.DR. PO SCH (08:30)
[2020-09-01] MEDS: SODIUM CHLORIDE 1 GM TABLET PO SCH ×2 (08:30→20:44)
[2020-09-01] MEDS: GABAPENTIN 100 MG CAPSULE. PO SCH ×3 (08:30→20:44)
[2020-09-01] MEDS: DOCUSATE SODIUM 100 MG CAPSULE PO SCH ×2 (08:30→20:45)
[2020-09-01] MEDS: risperiDONE 1 MG TABLET. PO SCH ×2 (08:31→20:46)
[2020-09-01] MEDS: DEMECLOCYCLINE HCL 150 MG TABLET. PO SCH ×2 (08:31→20:45)
[2020-09-01] MEDS: buPROPion 100 MG TABLET. PO SCH ×2 (08:31→20:43)
[2020-09-01] MEDS: MULTIVITAMIN with MINERAL TABLET. PO SCH (08:31)
[2020-09-01] MEDS: TAMSULOSIN 0.4 MG CAP.ER.24H. PO SCH (08:31)
[2020-09-01] MEDS: CHOLECALCIFEROL (VITAMIN D3) 1,000 UNIT TABLET PO SCH (08:31)
[2020-09-01] MEDS: FUROSEMIDE 40 MG TABLET PO SCH (08:31)
[2020-09-01] MEDS: PANTOPRAZOLE 40 MG TABLET. PO SCH (08:32)
[2020-09-01] MEDS: MAGNESIUM OXIDE 400 MG TABLET PO SCH (08:32)
--- NOTE | 2020-09-01 09:23 | PDOC ---
Exam Note: Rafael Note: This note is a late entry for 08/30/2020 covers elements not covered in my initial note. Subjective: The patient was seen on telehealth rounds in the afternoon of 08/30/2020 as an option during the COVID-19 pandemic period with Meggan PERSAUD, discussed and reviewed the chart. The patient slept 6-1/2 hours previous night. The patient remains hyperverbal, able to correct himself. He is compliant with medications. Appetite is fair. He has not been disruptive, not trying to kiss the other female patient on the unit that he has a relationship with. Review of Systems: Gait unsteady in wheelchair. No CV, , pulmonary, eye, ENT system symptoms on review. Mental Status Exam: The patient is reasonably oriented. Speech coherent. Abstraction fair. Computation impaired. Language function intact. Attention span short. Mood and affect grandiose. No suicidal or homicidal ideation. Laboratory Data: Reviewed. Impression: Schizoaffective disorder, bipolar type mixed with psychotic features. Anxiety disorder unspecified. Impulse control disorder unspecified. Plan: Continue psychotropics from initial note. Assessment: Vital Signs/I&O: Vital Signs Date Time Temp Pulse Resp B/P (MAP) Pulse Ox O2 Delivery O2 Flow Rate FiO2 09/01/20 05:45 96.6 98 18 145/89 (107) 99 08/31/20 06:00 Room Air I & O 08/31/20 08/31/20 09/01/20 14:59 22:59 06:59 Intake Total 1140 ml 720 ml Balance 1140 ml 720 ml Labs: Laboratory Tests Test 09/01/20 07:52 Glucose (Fingerstick) 123 mg/dL (70-99) H Current Medications: Meds: Laboratory Tests Test 09/01/20 07:52 Glucose (Fingerstick) 123 mg/dL Current Medications Medications (Trade) Dose Ordered Sig/Rober Route PRN Reason Start Time Stop Time Status Last Admin Dose Admin Sodium Chloride 1,000 ml @ 1,000 mls/hr 1X ONCE IV 08/20/20 18:45 08/20/20 19:44 DC 08/20/20 19:19 Aspirin (Aspirin Enteric Coated) 81 mg DAILY PO 08/21/20 09:00 09/01/20 08:30 Docusate Sodium (Colace) 100 mg BID PO 08/21/20 09:00 09/01/20 08:30 Furosemide (Lasix) 40 mg DAILY PO 08/21/20 09:00 09/01/20 08:31 Gabapentin (Neurontin) 100 mg TID PO 08/21/20 09:00 09/01/20 08:30 Guaifenesin (Mucinex Er) 600 mg BID PO 08/21/20 09:00 09/01/20 08:32 Levothyroxine Sodium (Synthroid) 100 mcg DAILY06 PO 08/21/20 06:00 09/01/20 06:00 Lisinopril (Prinivil) 5 mg DAILY PO 08/21/20 09:00 08/21/20 16:16 DC 08/21/20 10:13 Metformin HCl (Glucophage) 500 mg BIDWMEALS PO 08/21/20 08:00 09/01/20 08:30 Metoprolol Tartrate (Lopressor) 12.5 mg BID PO 08/21/20 09:00 08/25/20 09:33 DC 08/25/20 08:32 Spironolactone (Aldactone) 25 mg DAILY PO 08/21/20 09:00 08/25/20 09:33 DC 08/25/20 08:31 Tamsulosin HCl (Flomax) 0.4 mg DAILY PO 08/21/20 09:00 09/01/20 08:31 Vitamin D (Vitamin D3) 2,000 unit DAILY PO 08/21/20 09:00 09/01/20 08:31 Guaifenesin/ Codeine Phosphate (Robitussin Ac) 10 ml PRN Q6HRS PRN PO COUGH 08/20/20 23:15 08/20/20 23:03 DC Lisinopril (Prinivil) 30 mg DAILY PO 08/21/20 09:00 08/25/20 09:33 DC 08/25/20 08:31 Magnesium Oxide (Magnesium Oxide) 400 mg DAILY PO 08/21/20 09:00 09/01/20 08:32 Multivitamins/ Calcium (Thera-M Plus) 1 tab DAILY PO 08/21/20 09:00 09/01/20 08:31 Pantoprazole Sodium (Protonix) 40 mg DAILYAC PO 08/21/20 07:30 09/01/20 08:32 Potassium Chloride (Klor-Con) 10 meq DAILYWBKFT PO 08/21/20 08:00 09/01/20 08:30 Demeclocycline HCl (Declomycin) 300 mg Q12HR PO 08/21/20 09:00 09/01/20 08:31 Sodium Chloride (Sodium Chloride Tab) 2 gm BID PO 08/21/20 09:00 09/01/20 08:30 Bupropion HCl (Wellbutrin) 200 mg BID PO 08/21/20 09:00 09/01/20 08:31 Paliperidone Palmitate (Invega Sustenna) 234 mg QMONTH IM 09/19/20 09:00 Risperidone (RisperDAL) 0.5 mg TID PO 08/21/20 09:00 08/22/20 17:29 DC 08/22/20 14:00 Risperidone (RisperDAL) 1 mg DAILY PO 08/21/20 09:00 08/21/20 00:42 DC Medroxyprogesterone Acetate (Depo-Provera Im) 150 mg Q2WKS IM 09/03/20 09:00 Oxcarbazepine (Trileptal) 600 mg DAILY PO 08/21/20 09:00 08/22/20 11:10 DC 08/22/20 08:25 Olanzapine (ZyPREXA ZYDIS) 5 mg PRN Q2HR PRN PO PSYCHOSIS 08/20/20 23:00 Guaifenesin (Robitussin) 200 mg PRN Q4HRS PRN PO COUGH 08/20/20 23:00 Acetaminophen (Tylenol) 650 mg PRN Q6HRS PRN PO MILD PAIN / TEMP > 100.3'F 08/20/20 23:00 Multi-Ingredient Ointment (Analgesic [place]) 1 muriel PRN QID PRN TP MUSCLE PAIN 08/20/20 23:00 Al Hydroxide/Mg Hydroxide (Mylanta Plus Xs) 15 ml PRN AFTMEALHC PRN PO DYSPEPSIA 08/20/20 23:00 Magnesium Hydroxide (Milk Of Magnesia) 2,400 mg PRN QHS PRN PO CONSTIPATION 08/20/20 23:00 08/31/20 13:26 Nicotine (Nicoderm Cq 21mg Patch) 1 patch DAILY TD 08/21/20 09:00 09/01/20 08:29 Risperidone (RisperDAL) 1 mg PRN DAILY PRN PO Anxiety/Agitation 08/21/20 00:45 Oxcarbazepine (Trileptal) 300 mg [id number] PO 08/22/20 14:00 08/26/20 15:47 DC 08/26/20 13:43 Risperidone (RisperDAL) 1 mg DAILY PO 08/23/20 09:00 09/01/20 08:31 Risperidone (RisperDAL) 0.5 mg 1400,2100 PO 08/22/20 21:00 08/23/20 19:33 DC 08/23/20 14:42 Risperidone (RisperDAL) 0.5 mg DAILY@1400 PO 08/23/20 19:30 08/31/20 14:11 Risperidone (RisperDAL) 1 mg HS PO 08/23/20 21:00 08/31/20 20:05 Lactobacillus Rhamnosus (Culturelle) 1 cap BID PO 08/24/20 21:00 09/01/20 08:30 Oxcarbazepine (Trileptal) 300 mg 1400,2100 PO 08/26/20 21:00 08/31/20 20:05 Oxcarbazepine (Trileptal) 600 mg DAILY PO 08/27/20 09:00 09/01/20 08:30 I have reviewed the current psychotropics carefully including drug interactions. Risk benefit ratio favors no change other than as noted in my dictated progress note. Diagnosis: Problems: (1) Bipolar disorder, current episode mixed, severe, with psychotic features (2) Anxiety disorder (3) Impulse control disorder (4) Schizoaffective disorder, bipolar type LEONARD ASHFORD MD Sep 01, 2020 09:23
--- NOTE | 2020-09-01 09:47 | PDOC ---
Exam Note: Rafael Note: This note is a late entry for 08/31/2020 covers elements not covered in my initial note. Subjective: The patient was seen on telehealth rounds in the afternoon of 08/31/2020 as an option during the COVID-19 pandemic period with Carolina PERSAUD, discussed and reviewed the chart. The patient slept 7 hours previous night. Overall the patient is doing reasonably well. Per nursing report he is less hyperverbal as I met with him on telehealth rounds. During the telehealth rounds he was extremely hyperverbal and rambling but quickly able to correct himself and this was pointed out to him with the assistance of nursing staff. Review of Systems: Gait unsteady in wheelchair. No CV, , pulmonary, eye, ENT system symptoms on review. Mental Status Exam: The patient is reasonably oriented. Speech coherent. Abstraction fair. Computation impaired. Language function intact. Attention span short. Mood and affect grandiose. No suicidal or homicidal ideation. Laboratory Data: Reviewed. Impression: Schizoaffective disorder, bipolar type mixed with psychotic features. Anxiety disorder unspecified. Impulse control disorder unspecified. Plan: Continue psychotropics from initial note. Assessment: Vital Signs/I&O: Vital Signs Date Time Temp Pulse Resp B/P (MAP) Pulse Ox O2 Delivery O2 Flow Rate FiO2 09/01/20 05:45 96.6 98 18 145/89 (107) 99 08/31/20 06:00 Room Air I & O 08/31/20 08/31/20 09/01/20 15:00 23:00 07:00 Intake Total 1140 ml 720 ml Balance 1140 ml 720 ml Labs: Laboratory Tests Test 09/01/20 07:52 Glucose (Fingerstick) 123 mg/dL (70-99) H Current Medications: Meds: Laboratory Tests Test 09/01/20 07:52 Glucose (Fingerstick) 123 mg/dL Current Medications Medications (Trade) Dose Ordered Sig/Rober Route PRN Reason Start Time Stop Time Status Last Admin Dose Admin Sodium Chloride 1,000 ml @ 1,000 mls/hr 1X ONCE IV 08/20/20 18:45 08/20/20 19:44 DC 08/20/20 19:19 Aspirin (Aspirin Enteric Coated) 81 mg DAILY PO 08/21/20 09:00 09/01/20 08:30 Docusate Sodium (Colace) 100 mg BID PO 08/21/20 09:00 09/01/20 08:30 Furosemide (Lasix) 40 mg DAILY PO 08/21/20 09:00 09/01/20 08:31 Gabapentin (Neurontin) 100 mg TID PO 08/21/20 09:00 09/01/20 08:30 Guaifenesin (Mucinex Er) 600 mg BID PO 08/21/20 09:00 09/01/20 08:32 Levothyroxine Sodium (Synthroid) 100 mcg DAILY06 PO 08/21/20 06:00 09/01/20 06:00 Lisinopril (Prinivil) 5 mg DAILY PO 08/21/20 09:00 08/21/20 16:16 DC 08/21/20 10:13 Metformin HCl (Glucophage) 500 mg BIDWMEALS PO 08/21/20 08:00 09/01/20 08:30 Metoprolol Tartrate (Lopressor) 12.5 mg BID PO 08/21/20 09:00 08/25/20 09:33 DC 08/25/20 08:32 Spironolactone (Aldactone) 25 mg DAILY PO 08/21/20 09:00 08/25/20 09:33 DC 08/25/20 08:31 Tamsulosin HCl (Flomax) 0.4 mg DAILY PO 08/21/20 09:00 09/01/20 08:31 Vitamin D (Vitamin D3) 2,000 unit DAILY PO 08/21/20 09:00 09/01/20 08:31 Guaifenesin/ Codeine Phosphate (Robitussin Ac) 10 ml PRN Q6HRS PRN PO COUGH 08/20/20 23:15 08/20/20 23:03 DC Lisinopril (Prinivil) 30 mg DAILY PO 08/21/20 09:00 08/25/20 09:33 DC 08/25/20 08:31 Magnesium Oxide (Magnesium Oxide) 400 mg DAILY PO 08/21/20 09:00 09/01/20 08:32 Multivitamins/ Calcium (Thera-M Plus) 1 tab DAILY PO 08/21/20 09:00 09/01/20 08:31 Pantoprazole Sodium (Protonix) 40 mg DAILYAC PO 08/21/20 07:30 09/01/20 08:32 Potassium Chloride (Klor-Con) 10 meq DAILYWBKFT PO 08/21/20 08:00 09/01/20 08:30 Demeclocycline HCl (Declomycin) 300 mg Q12HR PO 08/21/20 09:00 09/01/20 08:31 Sodium Chloride (Sodium Chloride Tab) 2 gm BID PO 08/21/20 09:00 09/01/20 08:30 Bupropion HCl (Wellbutrin) 200 mg BID PO 08/21/20 09:00 09/01/20 08:31 Paliperidone Palmitate (Invega Sustenna) 234 mg QMONTH IM 09/19/20 09:00 Risperidone (RisperDAL) 0.5 mg TID PO 08/21/20 09:00 08/22/20 17:29 DC 08/22/20 14:00 Risperidone (RisperDAL) 1 mg DAILY PO 08/21/20 09:00 08/21/20 00:42 DC Medroxyprogesterone Acetate (Depo-Provera Im) 150 mg Q2WKS IM 09/03/20 09:00 Oxcarbazepine (Trileptal) 600 mg DAILY PO 08/21/20 09:00 08/22/20 11:10 DC 08/22/20 08:25 Olanzapine (ZyPREXA ZYDIS) 5 mg PRN Q2HR PRN PO PSYCHOSIS 08/20/20 23:00 Guaifenesin (Robitussin) 200 mg PRN Q4HRS PRN PO COUGH 08/20/20 23:00 Acetaminophen (Tylenol) 650 mg PRN Q6HRS PRN PO MILD PAIN / TEMP > 100.3'F 08/20/20 23:00 Multi-Ingredient Ointment (Analgesic [place]) 1 muriel PRN QID PRN TP MUSCLE PAIN 08/20/20 23:00 Al Hydroxide/Mg Hydroxide (Mylanta Plus Xs) 15 ml PRN AFTMEALHC PRN PO DYSPEPSIA 08/20/20 23:00 Magnesium Hydroxide (Milk Of Magnesia) 2,400 mg PRN QHS PRN PO CONSTIPATION 08/20/20 23:00 08/31/20 13:26 Nicotine (Nicoderm Cq 21mg Patch) 1 patch DAILY TD 08/21/20 09:00 09/01/20 08:29 Risperidone (RisperDAL) 1 mg PRN DAILY PRN PO Anxiety/Agitation 08/21/20 00:45 Oxcarbazepine (Trileptal) 300 mg [id number] PO 08/22/20 14:00 08/26/20 15:47 DC 08/26/20 13:43 Risperidone (RisperDAL) 1 mg DAILY PO 08/23/20 09:00 09/01/20 08:31 Risperidone (RisperDAL) 0.5 mg 1400,2100 PO 08/22/20 21:00 08/23/20 19:33 DC 08/23/20 14:42 Risperidone (RisperDAL) 0.5 mg DAILY@1400 PO 08/23/20 19:30 08/31/20 14:11 Risperidone (RisperDAL) 1 mg HS PO 08/23/20 21:00 08/31/20 20:05 Lactobacillus Rhamnosus (Culturelle) 1 cap BID PO 08/24/20 21:00 09/01/20 08:30 Oxcarbazepine (Trileptal) 300 mg 1400,2100 PO 08/26/20 21:00 08/31/20 20:05 Oxcarbazepine (Trileptal) 600 mg DAILY PO 08/27/20 09:00 09/01/20 08:30 I have reviewed the current psychotropics carefully including drug interactions. Risk benefit ratio favors no change other than as noted in my dictated progress note. Diagnosis: Problems: (1) Bipolar disorder, current episode mixed, severe, with psychotic features (2) Anxiety disorder (3) Impulse control disorder (4) Schizoaffective disorder, bipolar type LEONARD ASHFORD MD Sep 01, 2020 09:47
--- NOTE | 2020-09-01 11:29 | NUR ---
Nursing Note Pt on the patio, yelling at a peer angry in response to peers comments. States "Fuck you, you had it better than I EVER had it at that [place]!" Having a very heated discussion with a peer that resided at the same [place] as him. both of them. Pt med compliant and cooperative, compliant with po meds.
[2020-09-01] MEDS: risperiDONE 0.5 MG TABLET. PO SCH (13:20)
[2020-09-01 16:35] VITALS: BP 121/79
[2020-09-01] MEDS: MAGNESIUM HYDROXIDE 2,400 MG/30 ML ORAL.SUSP. PO PRN (20:43)
--- NOTE | 2020-09-01 21:58 | PDOC ---
Exam Note: Rafael Note: Please also refer to the separate dictated note~for this date of service dictated separately.~Patient seen individually. Discussed the patient with Nursing staff reviewed the chart.~Reviewed interim history and current functioning. Reviewed vital signs,~Labs/ Radiology~and current medications noted below. Continue current treatment with the changes noted in the dictated addendum note Assessment: Vital Signs/I&O: Vital Signs Date Time Temp Pulse Resp B/P (MAP) Pulse Ox O2 Delivery O2 Flow Rate FiO2 09/01/20 16:35 98.6 105 20 121/79 (93) 95 08/31/20 06:00 Room Air I & O 08/31/20 08/31/20 09/01/20 14:59 22:59 06:59 Intake Total 1140 ml 720 ml Balance 1140 ml 720 ml Labs: Laboratory Tests Test 09/01/20 07:52 Glucose (Fingerstick) 123 mg/dL (70-99) H Current Medications: Meds: Laboratory Tests Test 09/01/20 07:52 Glucose (Fingerstick) 123 mg/dL Current Medications Medications (Trade) Dose Ordered Sig/Rober Route PRN Reason Start Time Stop Time Status Last Admin Dose Admin Sodium Chloride 1,000 ml @ 1,000 mls/hr 1X ONCE IV 08/20/20 18:45 08/20/20 19:44 DC 08/20/20 19:19 Aspirin (Aspirin Enteric Coated) 81 mg DAILY PO 08/21/20 09:00 09/01/20 08:30 Docusate Sodium (Colace) 100 mg BID PO 08/21/20 09:00 09/01/20 20:45 Furosemide (Lasix) 40 mg DAILY PO 08/21/20 09:00 09/01/20 08:31 Gabapentin (Neurontin) 100 mg TID PO 08/21/20 09:00 09/01/20 20:44 Guaifenesin (Mucinex Er) 600 mg BID PO 08/21/20 09:00 09/01/20 20:45 Levothyroxine Sodium (Synthroid) 100 mcg DAILY06 PO 08/21/20 06:00 09/01/20 06:00 Lisinopril (Prinivil) 5 mg DAILY PO 08/21/20 09:00 08/21/20 16:16 DC 08/21/20 10:13 Metformin HCl (Glucophage) 500 mg BIDWMEALS PO 08/21/20 08:00 09/01/20 16:36 Metoprolol Tartrate (Lopressor) 12.5 mg BID PO 08/21/20 09:00 08/25/20 09:33 DC 08/25/20 08:32 Spironolactone (Aldactone) 25 mg DAILY PO 08/21/20 09:00 08/25/20 09:33 DC 08/25/20 08:31 Tamsulosin HCl (Flomax) 0.4 mg DAILY PO 08/21/20 09:00 09/01/20 08:31 Vitamin D (Vitamin D3) 2,000 unit DAILY PO 08/21/20 09:00 09/01/20 08:31 Guaifenesin/ Codeine Phosphate (Robitussin Ac) 10 ml PRN Q6HRS PRN PO COUGH 08/20/20 23:15 08/20/20 23:03 DC Lisinopril (Prinivil) 30 mg DAILY PO 08/21/20 09:00 08/25/20 09:33 DC 08/25/20 08:31 Magnesium Oxide (Magnesium Oxide) 400 mg DAILY PO 08/21/20 09:00 09/01/20 08:32 Multivitamins/ Calcium (Thera-M Plus) 1 tab DAILY PO 08/21/20 09:00 09/01/20 08:31 Pantoprazole Sodium (Protonix) 40 mg DAILYAC PO 08/21/20 07:30 09/01/20 08:32 Potassium Chloride (Klor-Con) 10 meq DAILYWBKFT PO 08/21/20 08:00 09/01/20 08:30 Demeclocycline HCl (Declomycin) 300 mg Q12HR PO 08/21/20 09:00 09/01/20 20:45 Sodium Chloride (Sodium Chloride Tab) 2 gm BID PO 08/21/20 09:00 09/01/20 20:44 Bupropion HCl (Wellbutrin) 200 mg BID PO 08/21/20 09:00 09/01/20 20:43 Paliperidone Palmitate (Invega Sustenna) 234 mg QMONTH IM 09/19/20 09:00 Risperidone (RisperDAL) 0.5 mg TID PO 08/21/20 09:00 08/22/20 17:29 DC 08/22/20 14:00 Risperidone (RisperDAL) 1 mg DAILY PO 08/21/20 09:00 08/21/20 00:42 DC Medroxyprogesterone Acetate (Depo-Provera Im) 150 mg Q2WKS IM 09/03/20 09:00 Oxcarbazepine (Trileptal) 600 mg DAILY PO 08/21/20 09:00 08/22/20 11:10 DC 08/22/20 08:25 Olanzapine (ZyPREXA ZYDIS) 5 mg PRN Q2HR PRN PO PSYCHOSIS 08/20/20 23:00 Guaifenesin (Robitussin) 200 mg PRN Q4HRS PRN PO COUGH 08/20/20 23:00 Acetaminophen (Tylenol) 650 mg PRN Q6HRS PRN PO MILD PAIN / TEMP > 100.3'F 08/20/20 23:00 Multi-Ingredient Ointment (Analgesic [place]) 1 muriel PRN QID PRN TP MUSCLE PAIN 08/20/20 23:00 Al Hydroxide/Mg Hydroxide (Mylanta Plus Xs) 15 ml PRN AFTMEALHC PRN PO DYSPEPSIA 08/20/20 23:00 Magnesium Hydroxide (Milk Of Magnesia) 2,400 mg PRN QHS PRN PO CONSTIPATION 08/20/20 23:00 09/01/20 20:43 Nicotine (Nicoderm Cq 21mg Patch) 1 patch DAILY TD 08/21/20 09:00 09/01/20 08:29 Risperidone (RisperDAL) 1 mg PRN DAILY PRN PO Anxiety/Agitation 08/21/20 00:45 Oxcarbazepine (Trileptal) 300 mg [id number] PO 08/22/20 14:00 08/26/20 15:47 DC 08/26/20 13:43 Risperidone (RisperDAL) 1 mg DAILY PO 08/23/20 09:00 09/01/20 08:31 Risperidone (RisperDAL) 0.5 mg 1400,2100 PO 08/22/20 21:00 08/23/20 19:33 DC 08/23/20 14:42 Risperidone (RisperDAL) 0.5 mg DAILY@1400 PO 08/23/20 19:30 09/01/20 13:20 Risperidone (RisperDAL) 1 mg HS PO 08/23/20 21:00 09/01/20 20:46 Lactobacillus Rhamnosus (Culturelle) 1 cap BID PO 08/24/20 21:00 09/01/20 20:44 Oxcarbazepine (Trileptal) 300 mg 1400,2100 PO 08/26/20 21:00 09/01/20 20:45 Oxcarbazepine (Trileptal) 600 mg DAILY PO 08/27/20 09:00 09/01/20 08:30 I have reviewed the current psychotropics carefully including drug interactions. Risk benefit ratio favors no change other than as noted in my dictated progress note. Diagnosis: Problems: (1) Bipolar disorder, current episode mixed, severe, with psychotic features (2) Anxiety disorder (3) Impulse control disorder (4) Schizoaffective disorder, bipolar type LEONARD ASHFROD MD Sep 01, 2020 21:58
--- NOTE | 2020-09-01 22:18 | NUR ---
Patient is propelling around the unit in his wheelchair on assumption of care, rambling to no one in particular.Compliant with assessments and medications taken whole. Patient complained of constipation and requested MOM with his HS meds. No agitation. No sexually inappropriate behaviors so far this shift. He denies any pain or discomfort. Patient appears to be sleeping comfortably at present time. Will continue to monitor.
[2020-09-02] MEDS: LEVOTHYROXINE 100 MCG TABLET PO SCH (05:24)
[2020-09-02 05:26] VITALS: BP 149/99
[2020-09-02] MEDS: CHOLECALCIFEROL (VITAMIN D3) 1,000 UNIT TABLET PO SCH (08:38)
[2020-09-02] MEDS: LACTOBACILLUS RHAMNOSUS GG 1 CAPSULE. PO SCH ×2 (08:38→21:07)
[2020-09-02] MEDS: NICOTINE 21MG PATCH. TD SCH (08:38)
[2020-09-02] MEDS: risperiDONE 1 MG TABLET. PO SCH ×2 (08:39→21:07)
[2020-09-02] MEDS: metFORMIN 500 MG TABLET PO SCH ×2 (08:39→17:20)
[2020-09-02] MEDS: PANTOPRAZOLE 40 MG TABLET. PO SCH (08:39)
[2020-09-02] MEDS: buPROPion 100 MG TABLET. PO SCH ×2 (08:39→21:07)
[2020-09-02] MEDS: DOCUSATE SODIUM 100 MG CAPSULE PO SCH ×2 (08:39→21:06)
[2020-09-02] MEDS: ASPIRIN ENTERIC COATED 81 MG TABLET.DR. PO SCH (08:39)
[2020-09-02] MEDS: SODIUM CHLORIDE 1 GM TABLET PO SCH ×2 (08:39→21:07)
[2020-09-02] MEDS: POTASSIUM CHLORIDE 10 MEQ TABLET.ER. PO SCH (08:39)
[2020-09-02] MEDS: TAMSULOSIN 0.4 MG CAP.ER.24H. PO SCH (08:39)
[2020-09-02] MEDS: DEMECLOCYCLINE HCL 150 MG TABLET. PO SCH ×2 (08:39→21:07)
[2020-09-02] MEDS: GABAPENTIN 100 MG CAPSULE. PO SCH ×3 (08:40→21:07)
[2020-09-02] MEDS: FUROSEMIDE 40 MG TABLET PO SCH (08:40)
[2020-09-02] MEDS: MULTIVITAMIN with MINERAL TABLET. PO SCH (08:40)
[2020-09-02] MEDS: MAGNESIUM OXIDE 400 MG TABLET PO SCH (08:40)
--- NOTE | 2020-09-02 08:45 | PDOC ---
Exam Note: Rafael Note: This note is a late entry for 09/01/2020 covers elements not covered in my initial note. Subjective: The patient was seen individually in the evening of 09/01/2020 with Mandi PERSAUD, discussed and reviewed the chart. The patient slept 6-1/4 hours previous night. The patient remains somewhat hyperverbal but able to correct this somewhat as I explained and discussed this with him. He states he gets anxious and therefore talks excessively. Review of Systems: Gait unsteady in wheelchair. No CV, , pulmonary, eye, ENT system symptoms on review. Mental Status Exam: The patient is reasonably oriented. Speech coherent. Abstraction fair. Computation impaired. Language function intact. Attention span short. Mood and affect grandiose. No suicidal or homicidal ideation. Laboratory Data: Reviewed. Impression: Schizoaffective disorder, bipolar type mixed with psychotic features. Anxiety disorder unspecified. Impulse control disorder unspecified. Plan: Continue psychotropics from initial note. Assessment: Vital Signs/I&O: Vital Signs Date Time Temp Pulse Resp B/P (MAP) Pulse Ox O2 Delivery O2 Flow Rate FiO2 09/02/20 05:26 98.1 96 18 149/99 (116) 97 08/31/20 06:00 Room Air I & O 09/01/20 09/01/20 09/02/20 15:00 23:00 07:00 Intake Total 960 ml 780 ml Output Total 2 ml Balance 960 ml 778 ml Labs: Laboratory Tests Test 09/02/20 07:56 Glucose (Fingerstick) 144 mg/dL (70-99) H Current Medications: Meds: Laboratory Tests Test 09/02/20 07:56 Glucose (Fingerstick) 144 mg/dL Current Medications Medications (Trade) Dose Ordered Sig/Rober Route PRN Reason Start Time Stop Time Status Last Admin Dose Admin Sodium Chloride 1,000 ml @ 1,000 mls/hr 1X ONCE IV 08/20/20 18:45 08/20/20 19:44 DC 08/20/20 19:19 Aspirin (Aspirin Enteric Coated) 81 mg DAILY PO 08/21/20 09:00 09/01/20 08:30 Docusate Sodium (Colace) 100 mg BID PO 08/21/20 09:00 09/01/20 20:45 Furosemide (Lasix) 40 mg DAILY PO 08/21/20 09:00 09/01/20 08:31 Gabapentin (Neurontin) 100 mg TID PO 08/21/20 09:00 09/01/20 20:44 Guaifenesin (Mucinex Er) 600 mg BID PO 08/21/20 09:00 09/01/20 20:45 Levothyroxine Sodium (Synthroid) 100 mcg DAILY06 PO 08/21/20 06:00 09/02/20 05:24 Lisinopril (Prinivil) 5 mg DAILY PO 08/21/20 09:00 08/21/20 16:16 DC 08/21/20 10:13 Metformin HCl (Glucophage) 500 mg BIDWMEALS PO 08/21/20 08:00 09/01/20 16:36 Metoprolol Tartrate (Lopressor) 12.5 mg BID PO 08/21/20 09:00 08/25/20 09:33 DC 08/25/20 08:32 Spironolactone (Aldactone) 25 mg DAILY PO 08/21/20 09:00 08/25/20 09:33 DC 08/25/20 08:31 Tamsulosin HCl (Flomax) 0.4 mg DAILY PO 08/21/20 09:00 09/01/20 08:31 Vitamin D (Vitamin D3) 2,000 unit DAILY PO 08/21/20 09:00 09/01/20 08:31 Guaifenesin/ Codeine Phosphate (Robitussin Ac) 10 ml PRN Q6HRS PRN PO COUGH 08/20/20 23:15 08/20/20 23:03 DC Lisinopril (Prinivil) 30 mg DAILY PO 08/21/20 09:00 08/25/20 09:33 DC 08/25/20 08:31 Magnesium Oxide (Magnesium Oxide) 400 mg DAILY PO 08/21/20 09:00 09/01/20 08:32 Multivitamins/ Calcium (Thera-M Plus) 1 tab DAILY PO 08/21/20 09:00 09/01/20 08:31 Pantoprazole Sodium (Protonix) 40 mg DAILYAC PO 08/21/20 07:30 09/01/20 08:32 Potassium Chloride (Klor-Con) 10 meq DAILYWBKFT PO 08/21/20 08:00 09/01/20 08:30 Demeclocycline HCl (Declomycin) 300 mg Q12HR PO 08/21/20 09:00 09/01/20 20:45 Sodium Chloride (Sodium Chloride Tab) 2 gm BID PO 08/21/20 09:00 09/01/20 20:44 Bupropion HCl (Wellbutrin) 200 mg BID PO 08/21/20 09:00 09/01/20 20:43 Paliperidone Palmitate (Invega Sustenna) 234 mg QMONTH IM 09/19/20 09:00 Risperidone (RisperDAL) 0.5 mg TID PO 08/21/20 09:00 08/22/20 17:29 DC 08/22/20 14:00 Risperidone (RisperDAL) 1 mg DAILY PO 08/21/20 09:00 08/21/20 00:42 DC Medroxyprogesterone Acetate (Depo-Provera Im) 150 mg Q2WKS IM 09/03/20 09:00 Oxcarbazepine (Trileptal) 600 mg DAILY PO 08/21/20 09:00 08/22/20 11:10 DC 08/22/20 08:25 Olanzapine (ZyPREXA ZYDIS) 5 mg PRN Q2HR PRN PO PSYCHOSIS 08/20/20 23:00 Guaifenesin (Robitussin) 200 mg PRN Q4HRS PRN PO COUGH 08/20/20 23:00 Acetaminophen (Tylenol) 650 mg PRN Q6HRS PRN PO MILD PAIN / TEMP > 100.3'F 08/20/20 23:00 Multi-Ingredient Ointment (Analgesic Max) 1 muriel PRN QID PRN TP MUSCLE PAIN 08/20/20 23:00 Al Hydroxide/Mg Hydroxide (Mylanta Plus Xs) 15 ml PRN AFTMEALHC PRN PO DYSPEPSIA 08/20/20 23:00 Magnesium Hydroxide (Milk Of Magnesia) 2,400 mg PRN QHS PRN PO CONSTIPATION 08/20/20 23:00 09/01/20 20:43 Nicotine (Nicoderm Cq 21mg Patch) 1 patch DAILY TD 08/21/20 09:00 09/01/20 08:29 Risperidone (RisperDAL) 1 mg PRN DAILY PRN PO Anxiety/Agitation 08/21/20 00:45 Oxcarbazepine (Trileptal) 300 mg [id number] PO 08/22/20 14:00 08/26/20 15:47 DC 08/26/20 13:43 Risperidone (RisperDAL) 1 mg DAILY PO 08/23/20 09:00 09/01/20 08:31 Risperidone (RisperDAL) 0.5 mg 1400,2100 PO 08/22/20 21:00 08/23/20 19:33 DC 08/23/20 14:42 Risperidone (RisperDAL) 0.5 mg DAILY@1400 PO 08/23/20 19:30 09/01/20 13:20 Risperidone (RisperDAL) 1 mg HS PO 08/23/20 21:00 09/01/20 20:46 Lactobacillus Rhamnosus (Culturelle) 1 cap BID PO 08/24/20 21:00 09/01/20 20:44 Oxcarbazepine (Trileptal) 300 mg 1400,2100 PO 08/26/20 21:00 09/01/20 20:45 Oxcarbazepine (Trileptal) 600 mg DAILY PO 08/27/20 09:00 09/01/20 08:30 I have reviewed the current psychotropics carefully including drug interactions. Risk benefit ratio favors no change other than as noted in my dictated progress note. Diagnosis: Problems: (1) Bipolar disorder, current episode mixed, severe, with psychotic features (2) Anxiety disorder (3) Impulse control disorder (4) Schizoaffective disorder, bipolar type LEONARD ASHFORD MD Sep 02, 2020 08:45
[2020-09-02] MEDS: risperiDONE 0.5 MG TABLET. PO SCH (14:46)
--- NOTE | 2020-09-02 15:21 | NUR ---
Nursing note: Patient in dinning room for morning medications & assessment, took pills whole. He denies SI/HI/VH/AH/AH/delusions. He reported chronic lower back pain 10/08. Patient is alert & oriented X4. He is calm, compliant, has been getting agitated with intrusive peers. He self propels in wheel chair. He is currently sitting in w/c in the door way of his room. Plan of care continues, will continue to monitor.
[2020-09-02 16:10] VITALS: BP 134/89
[2020-09-02] MEDS ORDERED: BISACODYL TAB 5 MG TABLET.DR. PO PRN (21:15)
--- NOTE | 2020-09-02 21:57 | PDOC ---
Exam Note: Rafael Note: Please also refer to the separate dictated note~for this date of service dictated separately.~Patient seen individually. Discussed the patient with Nursing staff reviewed the chart.~Reviewed interim history and current functioning. Reviewed vital signs,~Labs/ Radiology~and current medications noted below. Continue current treatment with the changes noted in the dictated addendum note Assessment: Vital Signs/I&O: Vital Signs Date Time Temp Pulse Resp B/P (MAP) Pulse Ox O2 Delivery O2 Flow Rate FiO2 09/02/20 16:10 97.6 94 20 134/89 (104) 96 08/31/20 06:00 Room Air I & O 09/01/20 09/01/20 09/02/20 15:00 23:00 07:00 Intake Total 960 ml 780 ml Output Total 2 ml Balance 960 ml 778 ml Labs: Laboratory Tests Test 09/02/20 07:56 Glucose (Fingerstick) 144 mg/dL (70-99) H Current Medications: Meds: Laboratory Tests Test 09/02/20 07:56 Glucose (Fingerstick) 144 mg/dL Current Medications Medications (Trade) Dose Ordered Sig/Rober Route PRN Reason Start Time Stop Time Status Last Admin Dose Admin Sodium Chloride 1,000 ml @ 1,000 mls/hr 1X ONCE IV 08/20/20 18:45 08/20/20 19:44 DC 08/20/20 19:19 Aspirin (Aspirin Enteric Coated) 81 mg DAILY PO 08/21/20 09:00 09/02/20 08:39 Docusate Sodium (Colace) 100 mg BID PO 08/21/20 09:00 09/02/20 21:06 Furosemide (Lasix) 40 mg DAILY PO 08/21/20 09:00 09/02/20 08:40 Gabapentin (Neurontin) 100 mg TID PO 08/21/20 09:00 09/02/20 21:07 Guaifenesin (Mucinex Er) 600 mg BID PO 08/21/20 09:00 09/02/20 21:07 Levothyroxine Sodium (Synthroid) 100 mcg DAILY06 PO 08/21/20 06:00 09/02/20 05:24 Lisinopril (Prinivil) 5 mg DAILY PO 08/21/20 09:00 08/21/20 16:16 DC 08/21/20 10:13 Metformin HCl (Glucophage) 500 mg BIDWMEALS PO 08/21/20 08:00 09/02/20 17:20 Metoprolol Tartrate (Lopressor) 12.5 mg BID PO 08/21/20 09:00 08/25/20 09:33 DC 08/25/20 08:32 Spironolactone (Aldactone) 25 mg DAILY PO 08/21/20 09:00 08/25/20 09:33 DC 08/25/20 08:31 Tamsulosin HCl (Flomax) 0.4 mg DAILY PO 08/21/20 09:00 09/02/20 08:39 Vitamin D (Vitamin D3) 2,000 unit DAILY PO 08/21/20 09:00 09/02/20 08:38 Guaifenesin/ Codeine Phosphate (Robitussin Ac) 10 ml PRN Q6HRS PRN PO COUGH 08/20/20 23:15 08/20/20 23:03 DC Lisinopril (Prinivil) 30 mg DAILY PO 08/21/20 09:00 08/25/20 09:33 DC 08/25/20 08:31 Magnesium Oxide (Magnesium Oxide) 400 mg DAILY PO 08/21/20 09:00 09/02/20 08:40 Multivitamins/ Calcium (Thera-M Plus) 1 tab DAILY PO 08/21/20 09:00 09/02/20 08:40 Pantoprazole Sodium (Protonix) 40 mg DAILYAC PO 08/21/20 07:30 09/02/20 08:39 Potassium Chloride (Klor-Con) 10 meq DAILYWBKFT PO 08/21/20 08:00 09/02/20 08:39 Demeclocycline HCl (Declomycin) 300 mg Q12HR PO 08/21/20 09:00 09/02/20 21:07 Sodium Chloride (Sodium Chloride Tab) 2 gm BID PO 08/21/20 09:00 09/02/20 21:07 Bupropion HCl (Wellbutrin) 200 mg BID PO 08/21/20 09:00 09/02/20 21:07 Paliperidone Palmitate (Invega Sustenna) 234 mg QMONTH IM 09/19/20 09:00 Risperidone (RisperDAL) 0.5 mg TID PO 08/21/20 09:00 08/22/20 17:29 DC 08/22/20 14:00 Risperidone (RisperDAL) 1 mg DAILY PO 08/21/20 09:00 08/21/20 00:42 DC Medroxyprogesterone Acetate (Depo-Provera Im) 150 mg Q2WKS IM 09/03/20 09:00 Oxcarbazepine (Trileptal) 600 mg DAILY PO 08/21/20 09:00 08/22/20 11:10 DC 08/22/20 08:25 Olanzapine (ZyPREXA ZYDIS) 5 mg PRN Q2HR PRN PO PSYCHOSIS 08/20/20 23:00 Guaifenesin (Robitussin) 200 mg PRN Q4HRS PRN PO COUGH 08/20/20 23:00 Acetaminophen (Tylenol) 650 mg PRN Q6HRS PRN PO MILD PAIN / TEMP > 100.3'F 08/20/20 23:00 Multi-Ingredient Ointment (Analgesic [place]) 1 muriel PRN QID PRN TP MUSCLE PAIN 08/20/20 23:00 Al Hydroxide/Mg Hydroxide (Mylanta Plus Xs) 15 ml PRN AFTMEALHC PRN PO DYSPEPSIA 08/20/20 23:00 Magnesium Hydroxide (Milk Of Magnesia) 2,400 mg PRN QHS PRN PO CONSTIPATION 08/20/20 23:00 09/01/20 20:43 Nicotine (Nicoderm Cq 21mg Patch) 1 patch DAILY TD 08/21/20 09:00 09/02/20 08:38 Risperidone (RisperDAL) 1 mg PRN DAILY PRN PO Anxiety/Agitation 08/21/20 00:45 Oxcarbazepine (Trileptal) 300 mg [id number] PO 08/22/20 14:00 08/26/20 15:47 DC 08/26/20 13:43 Risperidone (RisperDAL) 1 mg DAILY PO 08/23/20 09:00 09/02/20 08:39 Risperidone (RisperDAL) 0.5 mg 1400,2100 PO 08/22/20 21:00 08/23/20 19:33 DC 08/23/20 14:42 Risperidone (RisperDAL) 0.5 mg DAILY@1400 PO 08/23/20 19:30 09/02/20 14:46 Risperidone (RisperDAL) 1 mg HS PO 08/23/20 21:00 09/02/20 21:07 Lactobacillus Rhamnosus (Culturelle) 1 cap BID PO 08/24/20 21:00 09/02/20 21:07 Oxcarbazepine (Trileptal) 300 mg 1400,2100 PO 08/26/20 21:00 09/02/20 21:07 Oxcarbazepine (Trileptal) 600 mg DAILY PO 08/27/20 09:00 09/02/20 08:39 Polyethylene Glycol (miraLAX) 17 gm DAILY PO 09/03/20 09:00 Bisacodyl (Dulcolax Tab) 10 mg PRN DAILY PRN PO CONSTIPATION 09/02/20 21:15 I have reviewed the current psychotropics carefully including drug interactions. Risk benefit ratio favors no change other than as noted in my dictated progress note. Diagnosis: Problems: (1) Bipolar disorder, current episode mixed, severe, with psychotic features (2) Anxiety disorder (3) Impulse control disorder (4) Schizoaffective disorder, bipolar type LEONARD ASHFORD MD Sep 02, 2020 21:57
--- NOTE | 2020-09-02 22:55 | NUR ---
Nursing Note Pt complains of constipation, meds given at HS, pt in room during assessment. Pt hyperverbal, but pleasant and cooperative compliant with meds. No other behaviors.
[2020-09-03] MEDS: LEVOTHYROXINE 100 MCG TABLET PO SCH (06:00)
[2020-09-03 06:16] VITALS: BP 138/80
--- NOTE | 2020-09-03 06:26 | PDOC ---
Exam Note: Rafael Note: This note is a late entry for 09/02/2020 covers elements not covered in my initial note. Subjective: The patient was seen individually in the evening of 09/02/2020 with Carolina PERSAUD, discussed and reviewed the chart. The patient slept 7 hours previous night. At times he gets agitated with peers and then redirects. I met with him in the hallway. He is looking down the middle of the hospital, garden on the ground floor and seem to be observing this quite closely and seemed to remember that a statue had been removed from there. Review of Systems: Gait unsteady in wheelchair. No CV, , pulmonary, eye, ENT system symptoms on review. Mental Status Exam: The patient is reasonably oriented. Speech remains slightly hyperverbal but better than before. Abstraction fair. Computation impaired. Language function intact. Attention span short. Mood and affect grandiose. No suicidal or homicidal ideation. Laboratory Data: Reviewed. Impression: Schizoaffective disorder, bipolar type mixed with psychotic features. Anxiety disorder unspecified. Impulse control disorder unspecified. Plan: Continue psychotropics from initial note. Assessment: Vital Signs/I&O: Vital Signs Date Time Temp Pulse Resp B/P (MAP) Pulse Ox O2 Delivery O2 Flow Rate FiO2 09/03/20 06:16 98.1 88 20 138/80 (99) 95 08/31/20 06:00 Room Air I & O 09/02/20 09/02/20 09/03/20 15:00 23:00 07:00 Intake Total 840 ml 480 ml Balance 840 ml 480 ml Labs: Laboratory Tests Test 09/02/20 07:56 Glucose (Fingerstick) 144 mg/dL (70-99) H Current Medications: Meds: Laboratory Tests Test 09/02/20 07:56 Glucose (Fingerstick) 144 mg/dL Current Medications Medications (Trade) Dose Ordered Sig/Rober Route PRN Reason Start Time Stop Time Status Last Admin Dose Admin Sodium Chloride 1,000 ml @ 1,000 mls/hr 1X ONCE IV 08/20/20 18:45 08/20/20 19:44 DC 08/20/20 19:19 Aspirin (Aspirin Enteric Coated) 81 mg DAILY PO 08/21/20 09:00 09/02/20 08:39 Docusate Sodium (Colace) 100 mg BID PO 08/21/20 09:00 09/02/20 21:06 Furosemide (Lasix) 40 mg DAILY PO 08/21/20 09:00 09/02/20 08:40 Gabapentin (Neurontin) 100 mg TID PO 08/21/20 09:00 09/02/20 21:07 Guaifenesin (Mucinex Er) 600 mg BID PO 08/21/20 09:00 09/02/20 21:07 Levothyroxine Sodium (Synthroid) 100 mcg DAILY06 PO 08/21/20 06:00 09/02/20 05:24 Lisinopril (Prinivil) 5 mg DAILY PO 08/21/20 09:00 08/21/20 16:16 DC 08/21/20 10:13 Metformin HCl (Glucophage) 500 mg BIDWMEALS PO 08/21/20 08:00 09/02/20 17:20 Metoprolol Tartrate (Lopressor) 12.5 mg BID PO 08/21/20 09:00 08/25/20 09:33 DC 08/25/20 08:32 Spironolactone (Aldactone) 25 mg DAILY PO 08/21/20 09:00 08/25/20 09:33 DC 08/25/20 08:31 Tamsulosin HCl (Flomax) 0.4 mg DAILY PO 08/21/20 09:00 09/02/20 08:39 Vitamin D (Vitamin D3) 2,000 unit DAILY PO 08/21/20 09:00 09/02/20 08:38 Guaifenesin/ Codeine Phosphate (Robitussin Ac) 10 ml PRN Q6HRS PRN PO COUGH 08/20/20 23:15 08/20/20 23:03 DC Lisinopril (Prinivil) 30 mg DAILY PO 08/21/20 09:00 08/25/20 09:33 DC 08/25/20 08:31 Magnesium Oxide (Magnesium Oxide) 400 mg DAILY PO 08/21/20 09:00 09/02/20 08:40 Multivitamins/ Calcium (Thera-M Plus) 1 tab DAILY PO 08/21/20 09:00 09/02/20 08:40 Pantoprazole Sodium (Protonix) 40 mg DAILYAC PO 08/21/20 07:30 09/02/20 08:39 Potassium Chloride (Klor-Con) 10 meq DAILYWBKFT PO 08/21/20 08:00 09/02/20 08:39 Demeclocycline HCl (Declomycin) 300 mg Q12HR PO 08/21/20 09:00 09/02/20 21:07 Sodium Chloride (Sodium Chloride Tab) 2 gm BID PO 08/21/20 09:00 09/02/20 21:07 Bupropion HCl (Wellbutrin) 200 mg BID PO 08/21/20 09:00 09/02/20 21:07 Paliperidone Palmitate (Invega Sustenna) 234 mg QMONTH IM 09/19/20 09:00 Risperidone (RisperDAL) 0.5 mg TID PO 08/21/20 09:00 08/22/20 17:29 DC 08/22/20 14:00 Risperidone (RisperDAL) 1 mg DAILY PO 08/21/20 09:00 08/21/20 00:42 DC Medroxyprogesterone Acetate (Depo-Provera Im) 150 mg Q2WKS IM 09/03/20 09:00 Oxcarbazepine (Trileptal) 600 mg DAILY PO 08/21/20 09:00 08/22/20 11:10 DC 08/22/20 08:25 Olanzapine (ZyPREXA ZYDIS) 5 mg PRN Q2HR PRN PO PSYCHOSIS 08/20/20 23:00 Guaifenesin (Robitussin) 200 mg PRN Q4HRS PRN PO COUGH 08/20/20 23:00 Acetaminophen (Tylenol) 650 mg PRN Q6HRS PRN PO MILD PAIN / TEMP > 100.3'F 08/20/20 23:00 Multi-Ingredient Ointment (Analgesic [place]) 1 muriel PRN QID PRN TP MUSCLE PAIN 08/20/20 23:00 Al Hydroxide/Mg Hydroxide (Mylanta Plus Xs) 15 ml PRN AFTMEALHC PRN PO DYSPEPSIA 08/20/20 23:00 Magnesium Hydroxide (Milk Of Magnesia) 2,400 mg PRN QHS PRN PO CONSTIPATION 08/20/20 23:00 09/01/20 20:43 Nicotine (Nicoderm Cq 21mg Patch) 1 patch DAILY TD 08/21/20 09:00 09/02/20 08:38 Risperidone (RisperDAL) 1 mg PRN DAILY PRN PO Anxiety/Agitation 08/21/20 00:45 Oxcarbazepine (Trileptal) 300 mg [id number] PO 08/22/20 14:00 08/26/20 15:47 DC 08/26/20 13:43 Risperidone (RisperDAL) 1 mg DAILY PO 08/23/20 09:00 09/02/20 08:39 Risperidone (RisperDAL) 0.5 mg 1400,2100 PO 08/22/20 21:00 08/23/20 19:33 DC 08/23/20 14:42 Risperidone (RisperDAL) 0.5 mg DAILY@1400 PO 08/23/20 19:30 09/02/20 14:46 Risperidone (RisperDAL) 1 mg HS PO 08/23/20 21:00 09/02/20 21:07 Lactobacillus Rhamnosus (Culturelle) 1 cap BID PO 08/24/20 21:00 09/02/20 21:07 Oxcarbazepine (Trileptal) 300 mg 1400,2100 PO 08/26/20 21:00 09/02/20 21:07 Oxcarbazepine (Trileptal) 600 mg DAILY PO 08/27/20 09:00 09/02/20 08:39 Polyethylene Glycol (miraLAX) 17 gm DAILY PO 09/03/20 09:00 Bisacodyl (Dulcolax Tab) 10 mg PRN DAILY PRN PO CONSTIPATION 09/02/20 21:15 09/02/20 22:09 Current Medications Medications (Trade) Dose Ordered Sig/Rober Route PRN Reason Start Time Stop Time Status Last Admin Dose Admin Bisacodyl (Dulcolax Tab) 10 mg PRN DAILY PRN PO CONSTIPATION 09/02/20 21:15 09/02/20 22:09 I have reviewed the current psychotropics carefully including drug interactions. Risk benefit ratio favors no change other than as noted in my dictated progress note. Diagnosis: Problems: (1) Bipolar disorder, current episode mixed, severe, with psychotic features (2) Anxiety disorder (3) Impulse control disorder (4) Schizoaffective disorder, bipolar type LEONARD ASHFORD MD Sep 03, 2020 06:26
[2020-09-03] MEDS: POLYETHYLENE GLYCOL 3350 17 GM PACKET. PO SCH (08:55)
[2020-09-03] MEDS: NICOTINE 21MG PATCH. TD SCH (08:55)
[2020-09-03] MEDS: risperiDONE 1 MG TABLET. PO SCH ×2 (08:57→20:16)
[2020-09-03] MEDS: PANTOPRAZOLE 40 MG TABLET. PO SCH (08:57)
[2020-09-03] MEDS: DEMECLOCYCLINE HCL 150 MG TABLET. PO SCH ×2 (08:58→20:16)
[2020-09-03] MEDS: metFORMIN 500 MG TABLET PO SCH ×2 (08:58→17:18)
[2020-09-03] MEDS: MULTIVITAMIN with MINERAL TABLET. PO SCH (08:58)
[2020-09-03] MEDS: DOCUSATE SODIUM 100 MG CAPSULE PO SCH ×2 (08:58→20:17)
[2020-09-03] MEDS: GABAPENTIN 100 MG CAPSULE. PO SCH ×3 (08:58→20:17)
[2020-09-03] MEDS: FUROSEMIDE 40 MG TABLET PO SCH (08:58)
[2020-09-03] MEDS: LACTOBACILLUS RHAMNOSUS GG 1 CAPSULE. PO SCH ×2 (08:58→20:16)
[2020-09-03] MEDS: buPROPion 100 MG TABLET. PO SCH ×2 (08:58→20:17)
[2020-09-03] MEDS: TAMSULOSIN 0.4 MG CAP.ER.24H. PO SCH (08:58)
[2020-09-03] MEDS: POTASSIUM CHLORIDE 10 MEQ TABLET.ER. PO SCH (08:59)
[2020-09-03] MEDS: ASPIRIN ENTERIC COATED 81 MG TABLET.DR. PO SCH (08:59)
[2020-09-03] MEDS: SODIUM CHLORIDE 1 GM TABLET PO SCH ×2 (08:59→20:15)
[2020-09-03] MEDS: CHOLECALCIFEROL (VITAMIN D3) 1,000 UNIT TABLET PO SCH (08:59)
[2020-09-03] MEDS ORDERED: medroxyPROGESTERone IM 150 MG/ML VIAL. IM SCH (09:00)
[2020-09-03] MEDS: MAGNESIUM OXIDE 400 MG TABLET PO SCH (09:00)
[2020-09-03] MEDS: risperiDONE 0.5 MG TABLET. PO SCH (14:35)
--- NOTE | 2020-09-03 15:10 | NUR ---
[facility] Social Work Discharge Planning Form Patient Name JULIANE AYALA Admit Date: 08/20/20 DISCHARGE PLAN Discharge Dest[facility]: [facility] Assessment: No Level II Assessment: No Transportation: Facility will p/u at 1100 Special Instructions/Notes: Please fax signed med list and visit summary. DISCHARGE TO FACILITY Facility: [facility] [address] Address: [address] [place] [address] Contact Name: [employer] on Duty PCP: Dr. Perry Psychiatrist: None
--- NOTE | 2020-09-03 15:29 | NUR ---
Nursing note: Patient in bed room for morning medications & assessment, took pills whole. He denies SI/HI/VH/AH/AH/delusions. He reported chronic lower back pain 10/08. Patient is alert & oriented X4. He is calm, compliant, hyperverbal, and has been getting agitated with intrusive peers. He self propels in wheel chair. He is currently sitting in w/c in the eng way of his room. Plan of care continues, will continue to monitor.
[2020-09-03 15:47] VITALS: BP 155/98
[2020-09-03 15:50] VITALS: BP 158/98
--- NOTE | 2020-09-03 21:49 | NUR ---
Patient has been hyperverbal most of the evening. He has been annoying his roommate (who is trying to sleep) and is now sitting in the hallway talking to no one. Patient speaking about peer that he "dates" at his facility, stating he calls her "pissy" and she prefers that name. Patient continues to talk even after there is no one else in the area. Patient cooperative with cares and compliant with medications. Patient denies delusions and hallucinations when asked, none are apparent.
--- NOTE | 2020-09-03 22:01 | PDOC ---
Exam Note: Rafael Note: Please also refer to the separate dictated note~for this date of service dictated separately.~Patient seen individually. Discussed the patient with Nursing staff reviewed the chart.~Reviewed interim history and current functioning. Reviewed vital signs,~Labs/ Radiology~and current medications noted below. Continue current treatment with the changes noted in the dictated addendum note Assessment: Vital Signs/I&O: Vital Signs Date Time Temp Pulse Resp B/P (MAP) Pulse Ox O2 Delivery O2 Flow Rate FiO2 09/03/20 15:50 97.5 102 21 158/98 (118) 98 Room Air I & O 09/02/20 09/02/20 09/03/20 15:00 23:00 07:00 Intake Total 840 ml 480 ml Balance 840 ml 480 ml Labs: Laboratory Tests Test 09/03/20 07:43 Glucose (Fingerstick) 113 mg/dL (70-99) H Current Medications: Meds: Laboratory Tests Test 09/03/20 07:43 Glucose (Fingerstick) 113 mg/dL Current Medications Medications (Trade) Dose Ordered Sig/Rober Route PRN Reason Start Time Stop Time Status Last Admin Dose Admin Sodium Chloride 1,000 ml @ 1,000 mls/hr 1X ONCE IV 08/20/20 18:45 08/20/20 19:44 DC 08/20/20 19:19 Aspirin (Aspirin Enteric Coated) 81 mg DAILY PO 08/21/20 09:00 09/03/20 08:59 Docusate Sodium (Colace) 100 mg BID PO 08/21/20 09:00 09/03/20 20:17 Furosemide (Lasix) 40 mg DAILY PO 08/21/20 09:00 09/03/20 08:58 Gabapentin (Neurontin) 100 mg TID PO 08/21/20 09:00 09/03/20 20:17 Guaifenesin (Mucinex Er) 600 mg BID PO 08/21/20 09:00 09/03/20 20:16 Levothyroxine Sodium (Synthroid) 100 mcg DAILY06 PO 08/21/20 06:00 09/03/20 06:00 Lisinopril (Prinivil) 5 mg DAILY PO 08/21/20 09:00 08/21/20 16:16 DC 08/21/20 10:13 Metformin HCl (Glucophage) 500 mg BIDWMEALS PO 08/21/20 08:00 09/03/20 17:18 Metoprolol Tartrate (Lopressor) 12.5 mg BID PO 08/21/20 09:00 08/25/20 09:33 DC 08/25/20 08:32 Spironolactone (Aldactone) 25 mg DAILY PO 08/21/20 09:00 08/25/20 09:33 DC 08/25/20 08:31 Tamsulosin HCl (Flomax) 0.4 mg DAILY PO 08/21/20 09:00 09/03/20 08:58 Vitamin D (Vitamin D3) 2,000 unit DAILY PO 08/21/20 09:00 09/03/20 08:59 Guaifenesin/ Codeine Phosphate (Robitussin Ac) 10 ml PRN Q6HRS PRN PO COUGH 08/20/20 23:15 08/20/20 23:03 DC Lisinopril (Prinivil) 30 mg DAILY PO 08/21/20 09:00 08/25/20 09:33 DC 08/25/20 08:31 Magnesium Oxide (Magnesium Oxide) 400 mg DAILY PO 08/21/20 09:00 09/03/20 09:00 Multivitamins/ Calcium (Thera-M Plus) 1 tab DAILY PO 08/21/20 09:00 09/03/20 08:58 Pantoprazole Sodium (Protonix) 40 mg DAILYAC PO 08/21/20 07:30 09/03/20 08:57 Potassium Chloride (Klor-Con) 10 meq DAILYWBKFT PO 08/21/20 08:00 09/03/20 08:59 Demeclocycline HCl (Declomycin) 300 mg Q12HR PO 08/21/20 09:00 09/03/20 20:16 Sodium Chloride (Sodium Chloride Tab) 2 gm BID PO 08/21/20 09:00 09/03/20 20:15 Bupropion HCl (Wellbutrin) 200 mg BID PO 08/21/20 09:00 09/03/20 20:17 Paliperidone Palmitate (Invega Sustenna) 234 mg QMONTH IM 09/19/20 09:00 Risperidone (RisperDAL) 0.5 mg TID PO 08/21/20 09:00 08/22/20 17:29 DC 08/22/20 14:00 Risperidone (RisperDAL) 1 mg DAILY PO 08/21/20 09:00 08/21/20 00:42 DC Medroxyprogesterone Acetate (Depo-Provera Im) 150 mg Q2WKS IM 09/03/20 09:00 09/03/20 09:05 Oxcarbazepine (Trileptal) 600 mg DAILY PO 08/21/20 09:00 08/22/20 11:10 DC 08/22/20 08:25 Olanzapine (ZyPREXA ZYDIS) 5 mg PRN Q2HR PRN PO PSYCHOSIS 08/20/20 23:00 Guaifenesin (Robitussin) 200 mg PRN Q4HRS PRN PO COUGH 08/20/20 23:00 Acetaminophen (Tylenol) 650 mg PRN Q6HRS PRN PO MILD PAIN / TEMP > 100.3'F 08/20/20 23:00 Multi-Ingredient Ointment (Analgesic [place]) 1 muriel PRN QID PRN TP MUSCLE PAIN 08/20/20 23:00 Al Hydroxide/Mg Hydroxide (Mylanta Plus Xs) 15 ml PRN AFTMEALHC PRN PO DYSPEPSIA 08/20/20 23:00 Magnesium Hydroxide (Milk Of Magnesia) 2,400 mg PRN QHS PRN PO CONSTIPATION 08/20/20 23:00 09/01/20 20:43 Nicotine (Nicoderm Cq 21mg Patch) 1 patch DAILY TD 08/21/20 09:00 09/03/20 08:55 Risperidone (RisperDAL) 1 mg PRN DAILY PRN PO Anxiety/Agitation 08/21/20 00:45 Oxcarbazepine (Trileptal) 300 mg [id number] PO 08/22/20 14:00 08/26/20 15:47 DC 08/26/20 13:43 Risperidone (RisperDAL) 1 mg DAILY PO 08/23/20 09:00 09/03/20 08:57 Risperidone (RisperDAL) 0.5 mg 1400,2100 PO 08/22/20 21:00 08/23/20 19:33 DC 08/23/20 14:42 Risperidone (RisperDAL) 0.5 mg DAILY@1400 PO 08/23/20 19:30 09/03/20 14:35 Risperidone (RisperDAL) 1 mg HS PO 08/23/20 21:00 09/03/20 20:16 Lactobacillus Rhamnosus (Culturelle) 1 cap BID PO 08/24/20 21:00 09/03/20 20:16 Oxcarbazepine (Trileptal) 300 mg 1400,2100 PO 08/26/20 21:00 09/03/20 20:17 Oxcarbazepine (Trileptal) 600 mg DAILY PO 08/27/20 09:00 09/03/20 08:59 Polyethylene Glycol (miraLAX) 17 gm DAILY PO 09/03/20 09:00 09/03/20 08:55 Bisacodyl (Dulcolax Tab) 10 mg PRN DAILY PRN PO CONSTIPATION 09/02/20 21:15 09/02/20 22:09 Current Medications Medications (Trade) Dose Ordered Sig/Rober Route PRN Reason Start Time Stop Time Status Last Admin Dose Admin Medroxyprogesterone Acetate (Depo-Provera Im) 150 mg Q2WKS IM 09/03/20 09:00 09/03/20 09:05 Polyethylene Glycol (miraLAX) 17 gm DAILY PO 09/03/20 09:00 09/03/20 08:55 I have reviewed the current psychotropics carefully including drug interactions. Risk benefit ratio favors no change other than as noted in my dictated progress note. Diagnosis: Problems: (1) Bipolar disorder, current episode mixed, severe, with psychotic features (2) Anxiety disorder (3) Impulse control disorder (4) Schizoaffective disorder, bipolar type LEONARD ASHFORD MD Sep 03, 2020 22:01
--- NOTE | 2020-09-04 06:00 | NUR ---
Patient urinated on floor in room during the night. When asked, patient stated he doesn't know why he didn't get up to go to the bathroom. Patient is able to transfer self to wheelchair to get to the bathroom.
[2020-09-04 06:02] VITALS: BP 118/84
[2020-09-04] MEDS: LEVOTHYROXINE 100 MCG TABLET PO SCH (06:06)
[2020-09-04 07:18] LABS: BASO % 0 % (0-3); EOS # 0.1 x10^3/uL (0.0-0.7); EOS % 1 % (0-3); HEMATOCRIT 34.4 % (39.0-53.0); HEMOGLOBIN 12.1 g/dL (13.0-17.5); LYMPH # 1.1 x10^3/uL (1.0-4.8); LYMPH % 13 % (24-48); MEAN CORPUSCULAR HEMOGLOBIN 32 pg (25-35); MEAN CORPUSCULAR HGB CONC 35 g/dL (31-37); MEAN CORPUSCULAR VOLUME 91 fL (79-100); MONO # 0.6 x10^3/uL (0.0-1.1); MONO % 7 % (0-9); NEUT # 6.5 x10^3uL (1.8-7.7); NEUT % 79 % (31-73); PLATELET COUNT 236 x10^3/uL (140-400); WHITE BLOOD COUNT 8.3 x10^3/uL (4.0-11.0)
[2020-09-04 07:23] LABS: ALBUMIN 3.6 g/dL (3.4-5.0); ALBUMIN/GLOBULIN RATIO 1.2 (1.0-1.7); CALCIUM 9.1 mg/dL (8.5-10.1); GFR 76.5; POTASSIUM 3.9 mmol/L (3.5-5.1); TOTAL BILIRUBIN 0.3 mg/dL (0.2-1.0); TOTAL PROTEIN 6.7 g/dL (6.4-8.2)
[2020-09-04] MEDS: CHOLECALCIFEROL (VITAMIN D3) 1,000 UNIT TABLET PO SCH (08:45)
[2020-09-04] MEDS: GABAPENTIN 100 MG CAPSULE. PO SCH ×3 (08:45→20:15)
[2020-09-04] MEDS: buPROPion 100 MG TABLET. PO SCH ×2 (08:45→20:14)
[2020-09-04] MEDS: POTASSIUM CHLORIDE 10 MEQ TABLET.ER. PO SCH (08:46)
[2020-09-04] MEDS: ASPIRIN ENTERIC COATED 81 MG TABLET.DR. PO SCH (08:46)
[2020-09-04] MEDS: LACTOBACILLUS RHAMNOSUS GG 1 CAPSULE. PO SCH ×2 (08:46→20:15)
[2020-09-04] MEDS: risperiDONE 1 MG TABLET. PO SCH ×2 (08:46→20:15)
[2020-09-04] MEDS: PANTOPRAZOLE 40 MG TABLET. PO SCH (08:46)
[2020-09-04] MEDS: MULTIVITAMIN with MINERAL TABLET. PO SCH (08:46)
[2020-09-04] MEDS: DOCUSATE SODIUM 100 MG CAPSULE PO SCH ×2 (08:46→20:14)
[2020-09-04] MEDS: FUROSEMIDE 40 MG TABLET PO SCH (08:46)
[2020-09-04] MEDS: TAMSULOSIN 0.4 MG CAP.ER.24H. PO SCH (08:46)
[2020-09-04] MEDS: metFORMIN 500 MG TABLET PO SCH ×2 (08:46→17:21)
[2020-09-04] MEDS: DEMECLOCYCLINE HCL 150 MG TABLET. PO SCH ×2 (08:47→20:15)
[2020-09-04] MEDS: SODIUM CHLORIDE 1 GM TABLET PO SCH ×2 (08:47→20:15)
[2020-09-04] MEDS: NICOTINE 21MG PATCH. TD SCH (08:47)
--- NOTE | 2020-09-04 08:50 | PDOC ---
Exam Note: Rafael Note: This note is a late entry for 09/03/2020 covers elements not covered in my initial note. Subjective: The patient was seen individually in the evening of 09/03/2020 with Carolina PERSAUD, discussed and reviewed the chart. The patient slept 7-1/2 hours previous night. Also discussed with Annalisa, social media sr strategy manager about discharge plans. He gets somewhat hyperverbal at times but redirects. Review of Systems: Ambulation impaired in wheelchair. No CV, , pulmonary, eye, ENT system symptoms on review. Mental Status Exam: The patient is reasonably oriented. Speech coherent. Abstraction fair. Computation impaired. Language function intact. Attention span short. Mood and affect grandiose. No suicidal or homicidal ideation. Laboratory Data: Reviewed. Impression: Schizoaffective disorder, bipolar type mixed with psychotic features. Anxiety disorder unspecified. Impulse control disorder unspecified. Plan: Continue psychotropics from initial note. The patient is tolerating his current psychotropics. Overall his bipolar symptoms appears to have stabilized, we will transition him back to correction later this week. Assessment: Vital Signs/I&O: Vital Signs Date Time Temp Pulse Resp B/P (MAP) Pulse Ox O2 Delivery O2 Flow Rate FiO2 09/04/20 06:02 97.1 104 19 118/84 (95) 96 Room Air I & O 09/03/20 09/03/20 09/04/20 15:00 23:00 07:00 Intake Total 960 ml 360 ml 120 ml Balance 960 ml 360 ml 120 ml Labs: Laboratory Tests Test 09/04/20 06:23 09/04/20 07:27 White Blood Count 8.3 x10^3/uL (4.0-11.0) Red Blood Count 3.80 x10^6/uL (4.30-5.70) L Hemoglobin 12.1 g/dL (13.0-17.5) L Hematocrit 34.4 % (39.0-53.0) L Mean Corpuscular Volume 91 fL (79-100) Mean Corpuscular Hemoglobin 32 pg (25-35) Mean Corpuscular Hemoglobin Concent 35 g/dL (31-37) Red Cell Distribution Width 15.0 % (11.5-14.5) H Platelet Count 236 x10^3/uL (140-400) Neutrophils (%) (Auto) 79 % (31-73) H Lymphocytes (%) (Auto) 13 % (24-48) L Monocytes (%) (Auto) 7 % (0-9) Eosinophils (%) (Auto) 1 % (0-3) Basophils (%) (Auto) 0 % (0-3) Neutrophils # (Auto) 6.5 x10^3uL (1.8-7.7) Lymphocytes # (Auto) 1.1 x10^3/uL (1.0-4.8) Monocytes # (Auto) 0.6 x10^3/uL (0.0-1.1) Eosinophils # (Auto) 0.1 x10^3/uL (0.0-0.7) Basophils # (Auto) 0.0 x10^3/uL (0.0-0.2) Sodium Level 129 mmol/L (136-145) L Potassium Level 3.9 mmol/L (3.5-5.1) Chloride Level 93 mmol/L (98-107) L Carbon Dioxide Level 25 mmol/L (21-32) Anion Gap 11 (6-14) Blood Urea Nitrogen 10 mg/dL (8-26) Creatinine 1.0 mg/dL (0.7-1.3) Estimated GFR (Cockcroft-Gault) 76.5 BUN/Creatinine Ratio 10 (6-20) Glucose Level 106 mg/dL (70-99) H Calcium Level 9.1 mg/dL (8.5-10.1) Total Bilirubin 0.3 mg/dL (0.2-1.0) Aspartate Amino Transferase (AST) 20 U/L (15-37) Alanine Aminotransferase (ALT) 34 U/L (16-63) Alkaline Phosphatase 107 U/L (46-116) Total Protein 6.7 g/dL (6.4-8.2) Albumin 3.6 g/dL (3.4-5.0) Albumin/Globulin Ratio 1.2 (1.0-1.7) Glucose (Fingerstick) 119 mg/dL (70-99) H Current Medications: Meds: Laboratory Tests Test 09/04/20 06:23 09/04/20 07:27 White Blood Count 8.3 x10^3/uL Red Blood Count 3.80 x10^6/uL Hemoglobin 12.1 g/dL Hematocrit 34.4 % Mean Corpuscular Volume 91 fL Mean Corpuscular Hemoglobin 32 pg Mean Corpuscular Hemoglobin Concent 35 g/dL Red Cell Distribution Width 15.0 % Platelet Count 236 x10^3/uL Neutrophils (%) (Auto) 79 % Lymphocytes (%) (Auto) 13 % Monocytes (%) (Auto) 7 % Eosinophils (%) (Auto) 1 % Basophils (%) (Auto) 0 % Neutrophils # (Auto) 6.5 x10^3uL Lymphocytes # (Auto) 1.1 x10^3/uL Monocytes # (Auto) 0.6 x10^3/uL Eosinophils # (Auto) 0.1 x10^3/uL Basophils # (Auto) 0.0 x10^3/uL Sodium Level 129 mmol/L Potassium Level 3.9 mmol/L Chloride Level 93 mmol/L Carbon Dioxide Level 25 mmol/L Anion Gap 11 Blood Urea Nitrogen 10 mg/dL Creatinine 1.0 mg/dL Estimated GFR (Cockcroft-Gault) 76.5 BUN/Creatinine Ratio 10 Glucose Level 106 mg/dL Calcium Level 9.1 mg/dL Total Bilirubin 0.3 mg/dL Aspartate Amino Transf (AST/SGOT) 20 U/L Alanine Aminotransferase (ALT/SGPT) 34 U/L Alkaline Phosphatase 107 U/L Total Protein 6.7 g/dL Albumin 3.6 g/dL Albumin/Globulin Ratio 1.2 Glucose (Fingerstick) 119 mg/dL Current Medications Medications (Trade) Dose Ordered Sig/Rober Route PRN Reason Start Time Stop Time Status Last Admin Dose Admin Sodium Chloride 1,000 ml @ 1,000 mls/hr 1X ONCE IV 08/20/20 18:45 08/20/20 19:44 DC 08/20/20 19:19 Aspirin (Aspirin Enteric Coated) 81 mg DAILY PO 08/21/20 09:00 09/04/20 08:46 Docusate Sodium (Colace) 100 mg BID PO 08/21/20 09:00 09/04/20 08:46 Furosemide (Lasix) 40 mg DAILY PO 08/21/20 09:00 09/04/20 08:46 Gabapentin (Neurontin) 100 mg TID PO 08/21/20 09:00 09/04/20 08:45 Guaifenesin (Mucinex Er) 600 mg BID PO 08/21/20 09:00 09/04/20 08:46 Levothyroxine Sodium (Synthroid) 100 mcg DAILY06 PO 08/21/20 06:00 09/04/20 06:06 Lisinopril (Prinivil) 5 mg DAILY PO 08/21/20 09:00 08/21/20 16:16 DC 08/21/20 10:13 Metformin HCl (Glucophage) 500 mg BIDWMEALS PO 08/21/20 08:00 09/04/20 08:46 Metoprolol Tartrate (Lopressor) 12.5 mg BID PO 08/21/20 09:00 08/25/20 09:33 DC 08/25/20 08:32 Spironolactone (Aldactone) 25 mg DAILY PO 08/21/20 09:00 08/25/20 09:33 DC 08/25/20 08:31 Tamsulosin HCl (Flomax) 0.4 mg DAILY PO 08/21/20 09:00 09/04/20 08:46 Vitamin D (Vitamin D3) 2,000 unit DAILY PO 08/21/20 09:00 09/04/20 08:45 Guaifenesin/ Codeine Phosphate (Robitussin Ac) 10 ml PRN Q6HRS PRN PO COUGH 08/20/20 23:15 08/20/20 23:03 DC Lisinopril (Prinivil) 30 mg DAILY PO 08/21/20 09:00 08/25/20 09:33 DC 08/25/20 08:31 Magnesium Oxide (Magnesium Oxide) 400 mg DAILY PO 08/21/20 09:00 09/03/20 09:00 Multivitamins/ Calcium (Thera-M Plus) 1 tab DAILY PO 08/21/20 09:00 09/04/20 08:46 Pantoprazole Sodium (Protonix) 40 mg DAILYAC PO 08/21/20 07:30 09/04/20 08:46 Potassium Chloride (Klor-Con) 10 meq DAILYWBKFT PO 08/21/20 08:00 09/04/20 08:46 Demeclocycline HCl (Declomycin) 300 mg Q12HR PO 08/21/20 09:00 09/04/20 08:47 Sodium Chloride (Sodium Chloride Tab) 2 gm BID PO 08/21/20 09:00 09/04/20 08:47 Bupropion HCl (Wellbutrin) 200 mg BID PO 08/21/20 09:00 09/04/20 08:45 Paliperidone Palmitate (Invega Sustenna) 234 mg QMONTH IM 09/19/20 09:00 Risperidone (RisperDAL) 0.5 mg TID PO 08/21/20 09:00 08/22/20 17:29 DC 08/22/20 14:00 Risperidone (RisperDAL) 1 mg DAILY PO 08/21/20 09:00 08/21/20 00:42 DC Medroxyprogesterone Acetate (Depo-Provera Im) 150 mg Q2WKS IM 09/03/20 09:00 09/03/20 09:05 Oxcarbazepine (Trileptal) 600 mg DAILY PO 08/21/20 09:00 08/22/20 11:10 DC 08/22/20 08:25 Olanzapine (ZyPREXA ZYDIS) 5 mg PRN Q2HR PRN PO PSYCHOSIS 08/20/20 23:00 Guaifenesin (Robitussin) 200 mg PRN Q4HRS PRN PO COUGH 08/20/20 23:00 Acetaminophen (Tylenol) 650 mg PRN Q6HRS PRN PO MILD PAIN / TEMP > 100.3'F 08/20/20 23:00 Multi-Ingredient Ointment (Analgesic [place]) 1 muriel PRN QID PRN TP MUSCLE PAIN 08/20/20 23:00 Al Hydroxide/Mg Hydroxide (Mylanta Plus Xs) 15 ml PRN AFTMEALHC PRN PO DYSPEPSIA 08/20/20 23:00 Magnesium Hydroxide (Milk Of Magnesia) 2,400 mg PRN QHS PRN PO CONSTIPATION 08/20/20 23:00 09/01/20 20:43 Nicotine (Nicoderm Cq 21mg Patch) 1 patch DAILY TD 08/21/20 09:00 09/04/20 08:47 Risperidone (RisperDAL) 1 mg PRN DAILY PRN PO Anxiety/Agitation 08/21/20 00:45 Oxcarbazepine (Trileptal) 300 mg [id number] PO 08/22/20 14:00 08/26/20 15:47 DC 08/26/20 13:43 Risperidone (RisperDAL) 1 mg DAILY PO 08/23/20 09:00 09/04/20 08:46 Risperidone (RisperDAL) 0.5 mg 1400,2100 PO 08/22/20 21:00 08/23/20 19:33 DC 08/23/20 14:42 Risperidone (RisperDAL) 0.5 mg DAILY@1400 PO 08/23/20 19:30 09/03/20 14:35 Risperidone (RisperDAL) 1 mg HS PO 08/23/20 21:00 09/03/20 20:16 Lactobacillus Rhamnosus (Culturelle) 1 cap BID PO 08/24/20 21:00 09/04/20 08:46 Oxcarbazepine (Trileptal) 300 mg 1400,2100 PO 08/26/20 21:00 09/03/20 20:17 Oxcarbazepine (Trileptal) 600 mg DAILY PO 08/27/20 09:00 09/04/20 08:46 Polyethylene Glycol (miraLAX) 17 gm DAILY PO 09/03/20 09:00 09/03/20 08:55 Bisacodyl (Dulcolax Tab) 10 mg PRN DAILY PRN PO CONSTIPATION 09/02/20 21:15 09/02/20 22:09 Current Medications Medications (Trade) Dose Ordered Sig/Rober Route PRN Reason Start Time Stop Time Status Last Admin Dose Admin Medroxyprogesterone Acetate (Depo-Provera Im) 150 mg Q2WKS IM 09/03/20 09:00 09/03/20 09:05 Polyethylene Glycol (miraLAX) 17 gm DAILY PO 09/03/20 09:00 09/03/20 08:55 I have reviewed the current psychotropics carefully including drug interactions. Risk benefit ratio favors no change other than as noted in my dictated progress note. Diagnosis: Problems: (1) Bipolar disorder, current episode mixed, severe, with psychotic features (2) Anxiety disorder (3) Impulse control disorder (4) Schizoaffective disorder, bipolar type LEONARD ASHFORD MD Sep 04, 2020 08:50
[2020-09-04] MEDS: MAGNESIUM OXIDE 400 MG TABLET PO SCH (08:54)
[2020-09-04] MEDS: POLYETHYLENE GLYCOL 3350 17 GM PACKET. PO SCH (08:54)
[2020-09-04] MEDS: risperiDONE 0.5 MG TABLET. PO SCH (13:37)
[2020-09-04 16:19] VITALS: BP 143/99
[2020-09-04] MEDS: traZODone 100 MG TABLET. PO PRN (20:14)
--- NOTE | 2020-09-04 20:42 | NUR ---
PRN trazodone given per order for insomnia with HS medications.
--- NOTE | 2020-09-04 21:42 | PDOC ---
Exam Note: Rafael Note: Please also refer to the separate dictated note~for this date of service dictated separately.~Patient seen individually. Discussed the patient with Nursing staff reviewed the chart.~Reviewed interim history and current functioning. Reviewed vital signs,~Labs/ Radiology~and current medications noted below. Continue current treatment with the changes noted in the dictated addendum note Assessment: Vital Signs/I&O: Vital Signs Date Time Temp Pulse Resp B/P (MAP) Pulse Ox O2 Delivery O2 Flow Rate FiO2 09/04/20 16:19 97.9 99 18 143/99 (114) 95 09/04/20 06:02 Room Air I & O 09/03/20 09/03/20 09/04/20 14:59 22:59 06:59 Intake Total 960 ml 360 ml 120 ml Balance 960 ml 360 ml 120 ml Labs: Laboratory Tests Test 09/04/20 06:23 09/04/20 07:27 White Blood Count 8.3 x10^3/uL (4.0-11.0) Red Blood Count 3.80 x10^6/uL (4.30-5.70) L Hemoglobin 12.1 g/dL (13.0-17.5) L Hematocrit 34.4 % (39.0-53.0) L Mean Corpuscular Volume 91 fL (79-100) Mean Corpuscular Hemoglobin 32 pg (25-35) Mean Corpuscular Hemoglobin Concent 35 g/dL (31-37) Red Cell Distribution Width 15.0 % (11.5-14.5) H Platelet Count 236 x10^3/uL (140-400) Neutrophils (%) (Auto) 79 % (31-73) H Lymphocytes (%) (Auto) 13 % (24-48) L Monocytes (%) (Auto) 7 % (0-9) Eosinophils (%) (Auto) 1 % (0-3) Basophils (%) (Auto) 0 % (0-3) Neutrophils # (Auto) 6.5 x10^3uL (1.8-7.7) Lymphocytes # (Auto) 1.1 x10^3/uL (1.0-4.8) Monocytes # (Auto) 0.6 x10^3/uL (0.0-1.1) Eosinophils # (Auto) 0.1 x10^3/uL (0.0-0.7) Basophils # (Auto) 0.0 x10^3/uL (0.0-0.2) Sodium Level 129 mmol/L (136-145) L Potassium Level 3.9 mmol/L (3.5-5.1) Chloride Level 93 mmol/L (98-107) L Carbon Dioxide Level 25 mmol/L (21-32) Anion Gap 11 (6-14) Blood Urea Nitrogen 10 mg/dL (8-26) Creatinine 1.0 mg/dL (0.7-1.3) Estimated GFR (Cockcroft-Gault) 76.5 BUN/Creatinine Ratio 10 (6-20) Glucose Level 106 mg/dL (70-99) H Calcium Level 9.1 mg/dL (8.5-10.1) Total Bilirubin 0.3 mg/dL (0.2-1.0) Aspartate Amino Transferase (AST) 20 U/L (15-37) Alanine Aminotransferase (ALT) 34 U/L (16-63) Alkaline Phosphatase 107 U/L (46-116) Total Protein 6.7 g/dL (6.4-8.2) Albumin 3.6 g/dL (3.4-5.0) Albumin/Globulin Ratio 1.2 (1.0-1.7) Glucose (Fingerstick) 119 mg/dL (70-99) H Current Medications: Meds: Laboratory Tests Test 09/04/20 06:23 09/04/20 07:27 White Blood Count 8.3 x10^3/uL Red Blood Count 3.80 x10^6/uL Hemoglobin 12.1 g/dL Hematocrit 34.4 % Mean Corpuscular Volume 91 fL Mean Corpuscular Hemoglobin 32 pg Mean Corpuscular Hemoglobin Concent 35 g/dL Red Cell Distribution Width 15.0 % Platelet Count 236 x10^3/uL Neutrophils (%) (Auto) 79 % Lymphocytes (%) (Auto) 13 % Monocytes (%) (Auto) 7 % Eosinophils (%) (Auto) 1 % Basophils (%) (Auto) 0 % Neutrophils # (Auto) 6.5 x10^3uL Lymphocytes # (Auto) 1.1 x10^3/uL Monocytes # (Auto) 0.6 x10^3/uL Eosinophils # (Auto) 0.1 x10^3/uL Basophils # (Auto) 0.0 x10^3/uL Sodium Level 129 mmol/L Potassium Level 3.9 mmol/L Chloride Level 93 mmol/L Carbon Dioxide Level 25 mmol/L Anion Gap 11 Blood Urea Nitrogen 10 mg/dL Creatinine 1.0 mg/dL Estimated GFR (Cockcroft-Gault) 76.5 BUN/Creatinine Ratio 10 Glucose Level 106 mg/dL Calcium Level 9.1 mg/dL Total Bilirubin 0.3 mg/dL Aspartate Amino Transf (AST/SGOT) 20 U/L Alanine Aminotransferase (ALT/SGPT) 34 U/L Alkaline Phosphatase 107 U/L Total Protein 6.7 g/dL Albumin 3.6 g/dL Albumin/Globulin Ratio 1.2 Glucose (Fingerstick) 119 mg/dL Current Medications Medications (Trade) Dose Ordered Sig/Rober Route PRN Reason Start Time Stop Time Status Last Admin Dose Admin Sodium Chloride 1,000 ml @ 1,000 mls/hr 1X ONCE IV 08/20/20 18:45 08/20/20 19:44 DC 08/20/20 19:19 Aspirin (Aspirin Enteric Coated) 81 mg DAILY PO 08/21/20 09:00 09/04/20 08:46 Docusate Sodium (Colace) 100 mg BID PO 08/21/20 09:00 09/04/20 20:14 Furosemide (Lasix) 40 mg DAILY PO 08/21/20 09:00 09/04/20 08:46 Gabapentin (Neurontin) 100 mg TID PO 08/21/20 09:00 09/04/20 20:15 Guaifenesin (Mucinex Er) 600 mg BID PO 08/21/20 09:00 09/04/20 20:14 Levothyroxine Sodium (Synthroid) 100 mcg DAILY06 PO 08/21/20 06:00 09/04/20 06:06 Lisinopril (Prinivil) 5 mg DAILY PO 08/21/20 09:00 08/21/20 16:16 DC 08/21/20 10:13 Metformin HCl (Glucophage) 500 mg BIDWMEALS PO 08/21/20 08:00 09/04/20 17:21 Metoprolol Tartrate (Lopressor) 12.5 mg BID PO 08/21/20 09:00 08/25/20 09:33 DC 08/25/20 08:32 Spironolactone (Aldactone) 25 mg DAILY PO 08/21/20 09:00 08/25/20 09:33 DC 08/25/20 08:31 Tamsulosin HCl (Flomax) 0.4 mg DAILY PO 08/21/20 09:00 09/04/20 08:46 Vitamin D (Vitamin D3) 2,000 unit DAILY PO 08/21/20 09:00 09/04/20 08:45 Guaifenesin/ Codeine Phosphate (Robitussin Ac) 10 ml PRN Q6HRS PRN PO COUGH 08/20/20 23:15 08/20/20 23:03 DC Lisinopril (Prinivil) 30 mg DAILY PO 08/21/20 09:00 08/25/20 09:33 DC 08/25/20 08:31 Magnesium Oxide (Magnesium Oxide) 400 mg DAILY PO 08/21/20 09:00 09/04/20 08:54 Multivitamins/ Calcium (Thera-M Plus) 1 tab DAILY PO 08/21/20 09:00 09/04/20 08:46 Pantoprazole Sodium (Protonix) 40 mg DAILYAC PO 08/21/20 07:30 09/04/20 08:46 Potassium Chloride (Klor-Con) 10 meq DAILYWBKFT PO 08/21/20 08:00 09/04/20 08:46 Demeclocycline HCl (Declomycin) 300 mg Q12HR PO 08/21/20 09:00 09/04/20 20:15 Sodium Chloride (Sodium Chloride Tab) 2 gm BID PO 08/21/20 09:00 09/04/20 20:15 Bupropion HCl (Wellbutrin) 200 mg BID PO 08/21/20 09:00 09/04/20 20:14 Paliperidone Palmitate (Invega Sustenna) 234 mg QMONTH IM 09/19/20 09:00 Risperidone (RisperDAL) 0.5 mg TID PO 08/21/20 09:00 08/22/20 17:29 DC 08/22/20 14:00 Risperidone (RisperDAL) 1 mg DAILY PO 08/21/20 09:00 08/21/20 00:42 DC Medroxyprogesterone Acetate (Depo-Provera Im) 150 mg Q2WKS IM 09/03/20 09:00 09/03/20 09:05 Oxcarbazepine (Trileptal) 600 mg DAILY PO 08/21/20 09:00 08/22/20 11:10 DC 08/22/20 08:25 Olanzapine (ZyPREXA ZYDIS) 5 mg PRN Q2HR PRN PO PSYCHOSIS 08/20/20 23:00 Guaifenesin (Robitussin) 200 mg PRN Q4HRS PRN PO COUGH 08/20/20 23:00 Acetaminophen (Tylenol) 650 mg PRN Q6HRS PRN PO MILD PAIN / TEMP > 100.3'F 08/20/20 23:00 Multi-Ingredient Ointment (Analgesic [place]) 1 muriel PRN QID PRN TP MUSCLE PAIN 08/20/20 23:00 Al Hydroxide/Mg Hydroxide (Mylanta Plus Xs) 15 ml PRN AFTMEALHC PRN PO DYSPEPSIA 08/20/20 23:00 Magnesium Hydroxide (Milk Of Magnesia) 2,400 mg PRN QHS PRN PO CONSTIPATION, 1ST CHOICE 08/20/20 23:00 09/01/20 20:43 Nicotine (Nicoderm Cq 21mg Patch) 1 patch DAILY TD 08/21/20 09:00 09/04/20 08:47 Risperidone (RisperDAL) 1 mg PRN DAILY PRN PO Anxiety/Agitation 08/21/20 00:45 Oxcarbazepine (Trileptal) 300 mg [id number] PO 08/22/20 14:00 08/26/20 15:47 DC 08/26/20 13:43 Risperidone (RisperDAL) 1 mg DAILY PO 08/23/20 09:00 09/04/20 08:46 Risperidone (RisperDAL) 0.5 mg 1400,2100 PO 08/22/20 21:00 08/23/20 19:33 DC 08/23/20 14:42 Risperidone (RisperDAL) 0.5 mg DAILY@1400 PO 08/23/20 19:30 09/04/20 13:37 Risperidone (RisperDAL) 1 mg HS PO 08/23/20 21:00 09/04/20 20:15 Lactobacillus Rhamnosus (Culturelle) 1 cap BID PO 08/24/20 21:00 09/04/20 20:15 Oxcarbazepine (Trileptal) 300 mg 1400,2100 PO 08/26/20 21:00 09/04/20 20:14 Oxcarbazepine (Trileptal) 600 mg DAILY PO 08/27/20 09:00 09/04/20 08:46 Polyethylene Glycol (miraLAX) 17 gm DAILY PO 09/03/20 09:00 09/04/20 08:54 Bisacodyl (Dulcolax Tab) 10 mg PRN DAILY PRN PO CONSTIPATION, 2ND CHOICE 09/02/20 21:15 09/02/20 22:09 Trazodone HCl (Desyrel) 100 mg PRN QHS PRN PO INSOMNIA, MAY REPEAT X1 09/04/20 17:15 09/04/20 20:14 Current Medications Medications (Trade) Dose Ordered Sig/Rober Route PRN Reason Start Time Stop Time Status Last Admin Dose Admin Trazodone HCl (Desyrel) 100 mg PRN QHS PRN PO INSOMNIA, MAY REPEAT X1 09/04/20 17:15 09/04/20 20:14 I have reviewed the current psychotropics carefully including drug interactions. Risk benefit ratio favors no change other than as noted in my dictated progress note. Diagnosis: Problems: (1) Bipolar disorder, current episode mixed, severe, with psychotic features (2) Anxiety disorder (3) Impulse control disorder (4) Schizoaffective disorder, bipolar type LEONARD ASHFORD MD Sep 04, 2020 21:42
--- NOTE | 2020-09-04 22:00 | NUR ---
Patient remains hyperverbal. He talks constantly whether anyone is responding or even listening. Patient compliant with medications taken whole, he stated that he feels ready to leave on Wednesday but wishes "Prissy", his nickname for the female peer from his facility that is also a patient, would be discharging with him because she is his girlfriend. Patient went to sleep rather quickly tonight, he had been given PRN Trazodone.
[2020-09-04] MEDS ORDERED: ACET325T21 PO (22:44)
[2020-09-04] MEDS ORDERED: LACT1CAP21 PO (22:47)
[2020-09-04] MEDS ORDERED: RISP1TAB88 PO (22:56)
[2020-09-04] MEDS ORDERED: OXCA300T3 PO (23:00)
[2020-09-04] MEDS ORDERED: BISA-42 PO (23:05)
[2020-09-04] MEDS ORDERED: MAG-124 PO (23:06)
[2020-09-04] MEDS ORDERED: MAGN24003 PO (23:06)
[2020-09-04] MEDS ORDERED: TROL90CR TP (23:07)
[2020-09-04] MEDS ORDERED: MULT-114 PO (23:08)
[2020-09-04] MEDS ORDERED: NICO1PAT21 TD (23:09)
[2020-09-04] MEDS ORDERED: OLAN5TAB7 PO (23:10)
[2020-09-04] MEDS ORDERED: POLY17PO5 PO (23:11)
[2020-09-05 05:55] VITALS: BP 118/86
[2020-09-05] MEDS: LEVOTHYROXINE 100 MCG TABLET PO SCH (06:22)
--- NOTE | 2020-09-05 06:30 | PDOC ---
Exam Note: Rafael Note: This note is a late entry for 09/04/2020 covers elements not covered in my initial note. Subjective: The patient was seen individually in the evening of 09/04/2020 with Aurelio PRESAUD, discussed and reviewed the chart. The patient slept 3-1/2 hours previous night. I met with him on 2 separate occasions on rounds since he had some other questions for me about his discharge plans. He remains somewhat hyperverbal, rambling in speech, otherwise, pleasant. We will add trazodone 100 mg h.s. p.r.n. insomnia, may repeat x1. Review of Systems: Ambulation impaired in wheelchair. No CV, , pulmonary, eye, ENT system symptoms on review. Mental Status Exam: The patient is reasonably oriented. He continues to be somewhat hyperverbal but easily corrected himself and I pointed this out talking about getting back to the detention and described to me how there was a garden at the detention maintained by one of the patients and he will try and get involved with this. Speech coherent. Abstraction fair. Computation impaired. Language function intact. Attention span short. Mood and affect grandiose. No suicidal or homicidal ideation. Laboratory Data: Reviewed. Impression: Schizoaffective disorder, bipolar type mixed with psychotic features. Anxiety disorder unspecified. Impulse control disorder unspecified. Plan: Continue psychotropics from initial note. We will add trazodone 100 mg h.s. p.r.n. insomnia, june repeat x1. Assessment: Vital Signs/I&O: Vital Signs Date Time Temp Pulse Resp B/P (MAP) Pulse Ox O2 Delivery O2 Flow Rate FiO2 09/05/20 05:55 96.7 99 20 118/86 (97) 97 Room Air I & O 09/04/20 09/04/20 09/05/20 15:00 23:00 07:00 Intake Total 960 ml 480 ml Balance 960 ml 480 ml Labs: Laboratory Tests Test 09/04/20 07:27 Glucose (Fingerstick) 119 mg/dL (70-99) H Current Medications: Meds: Laboratory Tests Test 09/04/20 07:27 Glucose (Fingerstick) 119 mg/dL Current Medications Medications (Trade) Dose Ordered Sig/Rober Route PRN Reason Start Time Stop Time Status Last Admin Dose Admin Sodium Chloride 1,000 ml @ 1,000 mls/hr 1X ONCE IV 08/20/20 18:45 08/20/20 19:44 DC 08/20/20 19:19 Aspirin (Aspirin Enteric Coated) 81 mg DAILY PO 08/21/20 09:00 09/04/20 08:46 Docusate Sodium (Colace) 100 mg BID PO 08/21/20 09:00 09/04/20 20:14 Furosemide (Lasix) 40 mg DAILY PO 08/21/20 09:00 09/04/20 08:46 Gabapentin (Neurontin) 100 mg TID PO 08/21/20 09:00 09/04/20 20:15 Guaifenesin (Mucinex Er) 600 mg BID PO 08/21/20 09:00 09/04/20 20:14 Levothyroxine Sodium (Synthroid) 100 mcg DAILY06 PO 08/21/20 06:00 09/05/20 06:22 Lisinopril (Prinivil) 5 mg DAILY PO 08/21/20 09:00 08/21/20 16:16 DC 08/21/20 10:13 Metformin HCl (Glucophage) 500 mg BIDWMEALS PO 08/21/20 08:00 09/04/20 17:21 Metoprolol Tartrate (Lopressor) 12.5 mg BID PO 08/21/20 09:00 08/25/20 09:33 DC 08/25/20 08:32 Spironolactone (Aldactone) 25 mg DAILY PO 08/21/20 09:00 08/25/20 09:33 DC 08/25/20 08:31 Tamsulosin HCl (Flomax) 0.4 mg DAILY PO 08/21/20 09:00 09/04/20 08:46 Vitamin D (Vitamin D3) 2,000 unit DAILY PO 08/21/20 09:00 09/04/20 08:45 Guaifenesin/ Codeine Phosphate (Robitussin Ac) 10 ml PRN Q6HRS PRN PO COUGH 08/20/20 23:15 08/20/20 23:03 DC Lisinopril (Prinivil) 30 mg DAILY PO 08/21/20 09:00 08/25/20 09:33 DC 08/25/20 08:31 Magnesium Oxide (Magnesium Oxide) 400 mg DAILY PO 08/21/20 09:00 09/04/20 08:54 Multivitamins/ Calcium (Thera-M Plus) 1 tab DAILY PO 08/21/20 09:00 09/04/20 08:46 Pantoprazole Sodium (Protonix) 40 mg DAILYAC PO 08/21/20 07:30 09/04/20 08:46 Potassium Chloride (Klor-Con) 10 meq DAILYWBKFT PO 08/21/20 08:00 09/04/20 08:46 Demeclocycline HCl (Declomycin) 300 mg Q12HR PO 08/21/20 09:00 09/04/20 20:15 Sodium Chloride (Sodium Chloride Tab) 2 gm BID PO 08/21/20 09:00 09/04/20 20:15 Bupropion HCl (Wellbutrin) 200 mg BID PO 08/21/20 09:00 09/04/20 20:14 Paliperidone Palmitate (Invega Sustenna) 234 mg QMONTH IM 09/19/20 09:00 Risperidone (RisperDAL) 0.5 mg TID PO 08/21/20 09:00 08/22/20 17:29 DC 08/22/20 14:00 Risperidone (RisperDAL) 1 mg DAILY PO 08/21/20 09:00 08/21/20 00:42 DC Medroxyprogesterone Acetate (Depo-Provera Im) 150 mg Q2WKS IM 09/03/20 09:00 09/03/20 09:05 Oxcarbazepine (Trileptal) 600 mg DAILY PO 08/21/20 09:00 08/22/20 11:10 DC 08/22/20 08:25 Olanzapine (ZyPREXA ZYDIS) 5 mg PRN Q2HR PRN PO PSYCHOSIS 08/20/20 23:00 Guaifenesin (Robitussin) 200 mg PRN Q4HRS PRN PO COUGH 08/20/20 23:00 Acetaminophen (Tylenol) 650 mg PRN Q6HRS PRN PO MILD PAIN / TEMP > 100.3'F 08/20/20 23:00 Multi-Ingredient Ointment (Analgesic [place]) 1 muriel PRN QID PRN TP MUSCLE PAIN 08/20/20 23:00 Al Hydroxide/Mg Hydroxide (Mylanta Plus Xs) 15 ml PRN AFTMEALHC PRN PO DYSPEPSIA 08/20/20 23:00 Magnesium Hydroxide (Milk Of Magnesia) 2,400 mg PRN QHS PRN PO CONSTIPATION, 1ST CHOICE 08/20/20 23:00 09/01/20 20:43 Nicotine (Nicoderm Cq 21mg Patch) 1 patch DAILY TD 08/21/20 09:00 09/04/20 08:47 Risperidone (RisperDAL) 1 mg PRN DAILY PRN PO Anxiety/Agitation 08/21/20 00:45 Oxcarbazepine (Trileptal) 300 mg [id number] PO 08/22/20 14:00 08/26/20 15:47 DC 08/26/20 13:43 Risperidone (RisperDAL) 1 mg DAILY PO 08/23/20 09:00 09/04/20 08:46 Risperidone (RisperDAL) 0.5 mg 1400,2100 PO 08/22/20 21:00 08/23/20 19:33 DC 08/23/20 14:42 Risperidone (RisperDAL) 0.5 mg DAILY@1400 PO 08/23/20 19:30 09/04/20 13:37 Risperidone (RisperDAL) 1 mg HS PO 08/23/20 21:00 09/04/20 20:15 Lactobacillus Rhamnosus (Culturelle) 1 cap BID PO 08/24/20 21:00 09/04/20 20:15 Oxcarbazepine (Trileptal) 300 mg 1400,2100 PO 08/26/20 21:00 09/04/20 20:14 Oxcarbazepine (Trileptal) 600 mg DAILY PO 08/27/20 09:00 09/04/20 08:46 Polyethylene Glycol (miraLAX) 17 gm DAILY PO 09/03/20 09:00 09/04/20 08:54 Bisacodyl (Dulcolax Tab) 10 mg PRN DAILY PRN PO CONSTIPATION, 2ND CHOICE 09/02/20 21:15 09/02/20 22:09 Trazodone HCl (Desyrel) 100 mg PRN QHS PRN PO INSOMNIA, MAY REPEAT X1 09/04/20 17:15 09/04/20 20:14 Current Medications Medications (Trade) Dose Ordered Sig/Rober Route PRN Reason Start Time Stop Time Status Last Admin Dose Admin Trazodone HCl (Desyrel) 100 mg PRN QHS PRN PO INSOMNIA, MAY REPEAT X1 09/04/20 17:15 09/04/20 20:14 I have reviewed the current psychotropics carefully including drug interactions. Risk benefit ratio favors no change other than as noted in my dictated progress note. Diagnosis: Problems: (1) Bipolar disorder, current episode mixed, severe, with psychotic features (2) Anxiety disorder (3) Impulse control disorder (4) Schizoaffective disorder, bipolar type LEONARD ASHFORD MD Sep 05, 2020 06:30
[2020-09-05] MEDS: MAGNESIUM OXIDE 400 MG TABLET PO SCH (09:00)
[2020-09-05] MEDS: ASPIRIN ENTERIC COATED 81 MG TABLET.DR. PO SCH (09:38)
[2020-09-05] MEDS: DEMECLOCYCLINE HCL 150 MG TABLET. PO SCH ×2 (09:38→19:59)
[2020-09-05] MEDS: NICOTINE 21MG PATCH. TD SCH (09:38)
[2020-09-05] MEDS: buPROPion 100 MG TABLET. PO SCH ×2 (09:38→20:00)
[2020-09-05] MEDS: POLYETHYLENE GLYCOL 3350 17 GM PACKET. PO SCH (09:38)
[2020-09-05] MEDS: SODIUM CHLORIDE 1 GM TABLET PO SCH ×2 (09:39→20:00)
[2020-09-05] MEDS: MULTIVITAMIN with MINERAL TABLET. PO SCH (09:39)
[2020-09-05] MEDS: FUROSEMIDE 40 MG TABLET PO SCH (09:39)
[2020-09-05] MEDS: LACTOBACILLUS RHAMNOSUS GG 1 CAPSULE. PO SCH ×2 (09:39→19:59)
[2020-09-05] MEDS: CHOLECALCIFEROL (VITAMIN D3) 1,000 UNIT TABLET PO SCH (09:39)
[2020-09-05] MEDS: GABAPENTIN 100 MG CAPSULE. PO SCH ×3 (09:40→19:59)
[2020-09-05] MEDS: PANTOPRAZOLE 40 MG TABLET. PO SCH (09:40)
[2020-09-05] MEDS: metFORMIN 500 MG TABLET PO SCH ×2 (09:40→17:33)
[2020-09-05] MEDS: DOCUSATE SODIUM 100 MG CAPSULE PO SCH ×2 (09:40→19:59)
[2020-09-05] MEDS: POTASSIUM CHLORIDE 10 MEQ TABLET.ER. PO SCH (09:40)
[2020-09-05] MEDS: TAMSULOSIN 0.4 MG CAP.ER.24H. PO SCH (09:40)
[2020-09-05] MEDS: risperiDONE 1 MG TABLET. PO SCH ×2 (09:41→19:59)
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
--- NOTE | 2020-09-05 12:56 | NUR ---
Nursing Note: Pt. was calm, cooperative, and compliant today. He remains hyperverbal and at his baseline. He continues to hold full conversations even when no one is listening or responding to him. He has been roaming around the unit in his wheelchair and laughing with other patients. Pt. is compliant with medications.
[2020-09-05] MEDS: risperiDONE 0.5 MG TABLET. PO SCH (14:20)
[2020-09-05 16:05] VITALS: BP 100/62
[2020-09-05] MEDS: traZODone 100 MG TABLET. PO PRN (20:00)
--- NOTE | 2020-09-05 20:58 | NUR ---
Patient is talking in day room while peers are watching tv. He is compliant with medications and cooperative. Patient is scheduled to be discharging tomorrow.
--- NOTE | 2020-09-05 22:14 | PDOC ---
Exam Note: Rafael Note: Please also refer to the separate dictated note~for this date of service dictated separately.~Patient seen individually. Discussed the patient with Nursing staff reviewed the chart.~Reviewed interim history and current functioning. Reviewed vital signs,~Labs/ Radiology~and current medications noted below. Continue current treatment with the changes noted in the dictated addendum note Assessment: Vital Signs/I&O: Vital Signs Date Time Temp Pulse Resp B/P (MAP) Pulse Ox O2 Delivery O2 Flow Rate FiO2 09/05/20 16:05 97.9 103 20 100/62 (75) 94 09/05/20 05:55 Room Air I & O 09/04/20 09/04/20 09/05/20 15:00 23:00 07:00 Intake Total 960 ml 480 ml Balance 960 ml 480 ml Labs: Laboratory Tests Test 09/05/20 07:34 Glucose (Fingerstick) 111 mg/dL (70-99) H Current Medications: Meds: Laboratory Tests Test 09/05/20 07:34 Glucose (Fingerstick) 111 mg/dL Current Medications Medications (Trade) Dose Ordered Sig/Rober Route PRN Reason Start Time Stop Time Status Last Admin Dose Admin Sodium Chloride 1,000 ml @ 1,000 mls/hr 1X ONCE IV 08/20/20 18:45 08/20/20 19:44 DC 08/20/20 19:19 Aspirin (Aspirin Enteric Coated) 81 mg DAILY PO 08/21/20 09:00 09/05/20 09:38 Docusate Sodium (Colace) 100 mg BID PO 08/21/20 09:00 09/05/20 19:59 Furosemide (Lasix) 40 mg DAILY PO 08/21/20 09:00 09/05/20 09:39 Gabapentin (Neurontin) 100 mg TID PO 08/21/20 09:00 09/05/20 19:59 Guaifenesin (Mucinex Er) 600 mg BID PO 08/21/20 09:00 09/05/20 19:59 Levothyroxine Sodium (Synthroid) 100 mcg DAILY06 PO 08/21/20 06:00 09/05/20 06:22 Lisinopril (Prinivil) 5 mg DAILY PO 08/21/20 09:00 08/21/20 16:16 DC 08/21/20 10:13 Metformin HCl (Glucophage) 500 mg BIDWMEALS PO 08/21/20 08:00 09/05/20 17:33 Metoprolol Tartrate (Lopressor) 12.5 mg BID PO 08/21/20 09:00 08/25/20 09:33 DC 08/25/20 08:32 Spironolactone (Aldactone) 25 mg DAILY PO 08/21/20 09:00 08/25/20 09:33 DC 08/25/20 08:31 Tamsulosin HCl (Flomax) 0.4 mg DAILY PO 08/21/20 09:00 09/05/20 09:40 Vitamin D (Vitamin D3) 2,000 unit DAILY PO 08/21/20 09:00 09/05/20 09:39 Guaifenesin/ Codeine Phosphate (Robitussin Ac) 10 ml PRN Q6HRS PRN PO COUGH 08/20/20 23:15 08/20/20 23:03 DC Lisinopril (Prinivil) 30 mg DAILY PO 08/21/20 09:00 08/25/20 09:33 DC 08/25/20 08:31 Magnesium Oxide (Magnesium Oxide) 400 mg DAILY PO 08/21/20 09:00 09/05/20 09:00 Multivitamins/ Calcium (Thera-M Plus) 1 tab DAILY PO 08/21/20 09:00 09/05/20 09:39 Pantoprazole Sodium (Protonix) 40 mg DAILYAC PO 08/21/20 07:30 09/05/20 09:40 Potassium Chloride (Klor-Con) 10 meq DAILYWBKFT PO 08/21/20 08:00 09/05/20 09:40 Demeclocycline HCl (Declomycin) 300 mg Q12HR PO 08/21/20 09:00 09/05/20 19:59 Sodium Chloride (Sodium Chloride Tab) 2 gm BID PO 08/21/20 09:00 09/05/20 20:00 Bupropion HCl (Wellbutrin) 200 mg BID PO 08/21/20 09:00 09/05/20 20:00 Paliperidone Palmitate (Invega Sustenna) 234 mg QMONTH IM 09/19/20 09:00 Risperidone (RisperDAL) 0.5 mg TID PO 08/21/20 09:00 08/22/20 17:29 DC 08/22/20 14:00 Risperidone (RisperDAL) 1 mg DAILY PO 08/21/20 09:00 08/21/20 00:42 DC Medroxyprogesterone Acetate (Depo-Provera Im) 150 mg Q2WKS IM 09/03/20 09:00 09/03/20 09:05 Oxcarbazepine (Trileptal) 600 mg DAILY PO 08/21/20 09:00 08/22/20 11:10 DC 08/22/20 08:25 Olanzapine (ZyPREXA ZYDIS) 5 mg PRN Q2HR PRN PO PSYCHOSIS 08/20/20 23:00 Guaifenesin (Robitussin) 200 mg PRN Q4HRS PRN PO COUGH 08/20/20 23:00 Acetaminophen (Tylenol) 650 mg PRN Q6HRS PRN PO MILD PAIN / TEMP > 100.3'F 08/20/20 23:00 Multi-Ingredient Ointment (Analgesic [place]) 1 muriel PRN QID PRN TP MUSCLE PAIN 08/20/20 23:00 Al Hydroxide/Mg Hydroxide (Mylanta Plus Xs) 15 ml PRN AFTMEALHC PRN PO DYSPEPSIA 08/20/20 23:00 Magnesium Hydroxide (Milk Of Magnesia) 2,400 mg PRN QHS PRN PO CONSTIPATION, 1ST CHOICE 08/20/20 23:00 09/01/20 20:43 Nicotine (Nicoderm Cq 21mg Patch) 1 patch DAILY TD 08/21/20 09:00 09/05/20 09:38 Risperidone (RisperDAL) 1 mg PRN DAILY PRN PO Anxiety/Agitation 08/21/20 00:45 Oxcarbazepine (Trileptal) 300 mg [id number] PO 08/22/20 14:00 08/26/20 15:47 DC 08/26/20 13:43 Risperidone (RisperDAL) 1 mg DAILY PO 08/23/20 09:00 09/05/20 09:41 Risperidone (RisperDAL) 0.5 mg 1400,2100 PO 08/22/20 21:00 08/23/20 19:33 DC 08/23/20 14:42 Risperidone (RisperDAL) 0.5 mg DAILY@1400 PO 08/23/20 19:30 09/05/20 14:20 Risperidone (RisperDAL) 1 mg HS PO 08/23/20 21:00 09/05/20 19:59 Lactobacillus Rhamnosus (Culturelle) 1 cap BID PO 08/24/20 21:00 09/05/20 19:59 Oxcarbazepine (Trileptal) 300 mg 1400,2100 PO 08/26/20 21:00 09/05/20 20:00 Oxcarbazepine (Trileptal) 600 mg DAILY PO 08/27/20 09:00 09/05/20 14:21 Polyethylene Glycol (miraLAX) 17 gm DAILY PO 09/03/20 09:00 09/05/20 09:38 Bisacodyl (Dulcolax Tab) 10 mg PRN DAILY PRN PO CONSTIPATION, 2ND CHOICE 09/02/20 21:15 09/02/20 22:09 Trazodone HCl (Desyrel) 100 mg PRN QHS PRN PO INSOMNIA, MAY REPEAT X1 09/04/20 17:15 09/05/20 20:00 I have reviewed the current psychotropics carefully including drug interactions. Risk benefit ratio favors no change other than as noted in my dictated progress note. Diagnosis: Problems: (1) Bipolar disorder, current episode mixed, severe, with psychotic features (2) Anxiety disorder (3) Impulse control disorder (4) Schizoaffective disorder, bipolar type LEONARD ASHFORD MD Sep 05, 2020 22:14
[2020-09-06] MEDS: LEVOTHYROXINE 100 MCG TABLET PO SCH (04:57)
[2020-09-06 06:18] VITALS: BP 115/76
--- NOTE | 2020-09-06 06:56 | PDOC ---
Exam Note: Rafael Note: This note is a late entry for 09/05/2020 covers elements not covered in my initial note. Subjective: The patient was seen individually in the morning of 09/05/2020 for a treatment team meeting with Maria Mehta, Annalisa Jolley (social science manager), Tomeka, activity therapy and Evan RN, discussed and reviewed the chart. The patient slept 8-1/4 hours previous night. He remains a little hyperverbal but redirects with trazodone, compliant with medications. Tentative plan is transition back to care home tomorrow. He has attended 7 groups in the past one week. At times when he is hyperverbal, he has to be redirected but then there is a verbal interaction that last extended period of time we discussed about having a sign painted that could be shown to him like a placard when he was talking excessively, reminder to correct himself and he was agreeable to himself. Review of Systems: Ambulation impaired in wheelchair. No CV, , pulmonary, eye, ENT system symptoms on review. Mental Status Exam: The patient is reasonably oriented. Speech coherent. Abst raction fair. Computation impaired. Language function intact. Attention span short. Mood and affect grandiose. No suicidal or homicidal ideation. Laboratory Data: Reviewed. Impression: Schizoaffective disorder, bipolar type mixed with psychotic fe atures. Anxiety disorder unspecified. Impulse control disorder unspecified. Plan: Continue psychotropics from initial note. Transition back to care home 09/06. Assessment: Vital Signs/I&O: Vital Signs Date Time Temp Pulse Resp B/P (MAP) Pulse Ox O2 Delivery O2 Flow Rate FiO2 09/06/20 06:18 97.2 83 18 115/76 (89) 97 09/05/20 05:55 Room Air I & O 09/05/20 09/05/20 09/06/20 15:00 23:00 07:00 Intake Total 960 ml 840 ml Balance 960 ml 840 ml Labs: Laboratory Tests Test 09/05/20 07:34 Glucose (Fingerstick) 111 mg/dL (70-99) H Current Medications: Meds: Laboratory Tests Test 09/05/20 07:34 Glucose (Fingerstick) 111 mg/dL Current Medications Medications (Trade) Dose Ordered Sig/Rober Route PRN Reason Start Time Stop Time Status Last Admin Dose Admin Sodium Chloride 1,000 ml @ 1,000 mls/hr 1X ONCE IV 08/20/20 18:45 08/20/20 19:44 DC 08/20/20 19:19 Aspirin (Aspirin Enteric Coated) 81 mg DAILY PO 08/21/20 09:00 09/05/20 09:38 Docusate Sodium (Colace) 100 mg BID PO 08/21/20 09:00 09/05/20 19:59 Furosemide (Lasix) 40 mg DAILY PO 08/21/20 09:00 09/05/20 09:39 Gabapentin (Neurontin) 100 mg TID PO 08/21/20 09:00 09/05/20 19:59 Guaifenesin (Mucinex Er) 600 mg BID PO 08/21/20 09:00 09/05/20 19:59 Levothyroxine Sodium (Synthroid) 100 mcg DAILY06 PO 08/21/20 06:00 09/06/20 04:57 Lisinopril (Prinivil) 5 mg DAILY PO 08/21/20 09:00 08/21/20 16:16 DC 08/21/20 10:13 Metformin HCl (Glucophage) 500 mg BIDWMEALS PO 08/21/20 08:00 09/05/20 17:33 Metoprolol Tartrate (Lopressor) 12.5 mg BID PO 08/21/20 09:00 08/25/20 09:33 DC 08/25/20 08:32 Spironolactone (Aldactone) 25 mg DAILY PO 08/21/20 09:00 08/25/20 09:33 DC 08/25/20 08:31 Tamsulosin HCl (Flomax) 0.4 mg DAILY PO 08/21/20 09:00 09/05/20 09:40 Vitamin D (Vitamin D3) 2,000 unit DAILY PO 08/21/20 09:00 09/05/20 09:39 Guaifenesin/ Codeine Phosphate (Robitussin Ac) 10 ml PRN Q6HRS PRN PO COUGH 08/20/20 23:15 08/20/20 23:03 DC Lisinopril (Prinivil) 30 mg DAILY PO 08/21/20 09:00 08/25/20 09:33 DC 08/25/20 08:31 Magnesium Oxide (Magnesium Oxide) 400 mg DAILY PO 08/21/20 09:00 09/05/20 09:00 Multivitamins/ Calcium (Thera-M Plus) 1 tab DAILY PO 08/21/20 09:00 09/05/20 09:39 Pantoprazole Sodium (Protonix) 40 mg DAILYAC PO 08/21/20 07:30 09/05/20 09:40 Potassium Chloride (Klor-Con) 10 meq DAILYWBKFT PO 08/21/20 08:00 09/05/20 09:40 Demeclocycline HCl (Declomycin) 300 mg Q12HR PO 08/21/20 09:00 09/05/20 19:59 Sodium Chloride (Sodium Chloride Tab) 2 gm BID PO 08/21/20 09:00 09/05/20 20:00 Bupropion HCl (Wellbutrin) 200 mg BID PO 08/21/20 09:00 09/05/20 20:00 Paliperidone Palmitate (Invega Sustenna) 234 mg QMONTH IM 09/19/20 09:00 Risperidone (RisperDAL) 0.5 mg TID PO 08/21/20 09:00 08/22/20 17:29 DC 08/22/20 14:00 Risperidone (RisperDAL) 1 mg DAILY PO 08/21/20 09:00 08/21/20 00:42 DC Medroxyprogesterone Acetate (Depo-Provera Im) 150 mg Q2WKS IM 09/03/20 09:00 09/03/20 09:05 Oxcarbazepine (Trileptal) 600 mg DAILY PO 08/21/20 09:00 08/22/20 11:10 DC 08/22/20 08:25 Olanzapine (ZyPREXA ZYDIS) 5 mg PRN Q2HR PRN PO PSYCHOSIS 08/20/20 23:00 Guaifenesin (Robitussin) 200 mg PRN Q4HRS PRN PO COUGH 08/20/20 23:00 Acetaminophen (Tylenol) 650 mg PRN Q6HRS PRN PO MILD PAIN / TEMP > 100.3'F 08/20/20 23:00 Multi-Ingredient Ointment (Analgesic [place]) 1 muriel PRN QID PRN TP MUSCLE PAIN 08/20/20 23:00 Al Hydroxide/Mg Hydroxide (Mylanta Plus Xs) 15 ml PRN AFTMEALHC PRN PO DYSPEPSIA 08/20/20 23:00 Magnesium Hydroxide (Milk Of Magnesia) 2,400 mg PRN QHS PRN PO CONSTIPATION, 1ST CHOICE 08/20/20 23:00 09/01/20 20:43 Nicotine (Nicoderm Cq 21mg Patch) 1 patch DAILY TD 08/21/20 09:00 09/05/20 09:38 Risperidone (RisperDAL) 1 mg PRN DAILY PRN PO Anxiety/Agitation 08/21/20 00:45 Oxcarbazepine (Trileptal) 300 mg [id number] PO 08/22/20 14:00 08/26/20 15:47 DC 08/26/20 13:43 Risperidone (RisperDAL) 1 mg DAILY PO 08/23/20 09:00 09/05/20 09:41 Risperidone (RisperDAL) 0.5 mg 1400,2100 PO 08/22/20 21:00 08/23/20 19:33 DC 08/23/20 14:42 Risperidone (RisperDAL) 0.5 mg DAILY@1400 PO 08/23/20 19:30 09/05/20 14:20 Risperidone (RisperDAL) 1 mg HS PO 08/23/20 21:00 09/05/20 19:59 Lactobacillus Rhamnosus (Culturelle) 1 cap BID PO 08/24/20 21:00 09/05/20 19:59 Oxcarbazepine (Trileptal) 300 mg 1400,2100 PO 08/26/20 21:00 09/05/20 20:00 Oxcarbazepine (Trileptal) 600 mg DAILY PO 08/27/20 09:00 09/05/20 14:21 Polyethylene Glycol (miraLAX) 17 gm DAILY PO 09/03/20 09:00 09/05/20 09:38 Bisacodyl (Dulcolax Tab) 10 mg PRN DAILY PRN PO CONSTIPATION, 2ND CHOICE 09/02/20 21:15 09/02/20 22:09 Trazodone HCl (Desyrel) 100 mg PRN QHS PRN PO INSOMNIA, MAY REPEAT X1 09/04/20 17:15 7/8/21 20:00 I have reviewed the current psychotropics carefully including drug interactions. Risk benefit ratio favors no change other than as noted in my dictated progress note. Diagnosis: Problems: (1) Bipolar disorder, current episode mixed, severe, with psychotic features (2) Anxiety disorder (3) Impulse control disorder (4) Schizoaffective disorder, bipolar type LEONARD ASHFORD MD Sep 06, 2020 06:56
[2020-09-06] MEDS: POLYETHYLENE GLYCOL 3350 17 GM PACKET. PO SCH (08:44)
[2020-09-06] MEDS: NICOTINE 21MG PATCH. TD SCH (08:45)
[2020-09-06] MEDS: CHOLECALCIFEROL (VITAMIN D3) 1,000 UNIT TABLET PO SCH (08:46)
[2020-09-06] MEDS: POTASSIUM CHLORIDE 10 MEQ TABLET.ER. PO SCH (08:46)
[2020-09-06] MEDS: buPROPion 100 MG TABLET. PO SCH (08:46)
[2020-09-06] MEDS: ASPIRIN ENTERIC COATED 81 MG TABLET.DR. PO SCH (08:46)
[2020-09-06] MEDS: LACTOBACILLUS RHAMNOSUS GG 1 CAPSULE. PO SCH (08:47)
[2020-09-06] MEDS: metFORMIN 500 MG TABLET PO SCH (08:47)
[2020-09-06] MEDS: PANTOPRAZOLE 40 MG TABLET. PO SCH (08:47)
[2020-09-06] MEDS: MULTIVITAMIN with MINERAL TABLET. PO SCH (08:47)
[2020-09-06] MEDS: DEMECLOCYCLINE HCL 150 MG TABLET. PO SCH (08:47)
[2020-09-06] MEDS: risperiDONE 1 MG TABLET. PO SCH (08:48)
[2020-09-06] MEDS: TAMSULOSIN 0.4 MG CAP.ER.24H. PO SCH (08:48)
[2020-09-06] MEDS: SODIUM CHLORIDE 1 GM TABLET PO SCH (08:48)
[2020-09-06] MEDS: FUROSEMIDE 40 MG TABLET PO SCH (08:49)
[2020-09-06] MEDS: DOCUSATE SODIUM 100 MG CAPSULE PO SCH (08:49)
[2020-09-06] MEDS: GABAPENTIN 100 MG CAPSULE. PO SCH (08:49)
[2020-09-06] MEDS: MAGNESIUM OXIDE 400 MG TABLET PO SCH (09:00)
--- NOTE | 2020-09-06 10:54 | NUR ---
Nursing Note: Pt is calm, cooperative, and medication compliant. He continues to be hyperverbal and will continue to talk even when no one is listening. Pt. was suppose to discharge at 11am today, but his facilities van broke down, so they had to find other transport. Pt. will still be discharging just a little later this afternoon. Pt. declined to call the smoking cessation hotline. He has been wandering throughout the unit visiting with patients.
--- NOTE | 2020-09-06 13:33 | NUR ---
Tobacco Discharge Note [facility] Tobacco Hotline called with patient prior to discharge, Patient refused to call the number before discharge Tobacco cessation medication listed with current medications for discharge. YES Transition Record was faxed to follow-up provider with the following elements: Reason for admission, procedures, tests, principal diagnosis, pending studies, patient instructions, 21/09 contact information for unit, phone number to obtain pending test results, plan for follow-up care, physician follow-up, advanced directive information, and medication list with dose, duration and instructions. This information was included in the following documents: History and physical, lab results, study results, progress notes, social work planning form, DC instruction form, patient visit summary, and medication reconciliation form. Date & time record faxed: 09/05/20 [id number] Record faxed to: Esteban on Record discussed with/ report given to: Dottie Mayen LPN
--- NOTE | 2020-09-06 22:14 | PDOC ---
Exam Note: Rafael Note: Please also refer to the separate dictated note~for this date of service dictated separately.~Patient seen individually. Discussed the patient with Nursing staff reviewed the chart.~Reviewed interim history and current functioning. Reviewed vital signs,~Labs/ Radiology~and current medications noted below. Continue current treatment with the changes noted in the dictated addendum note Assessment: Vital Signs/I&O: Vital Signs Date Time Temp Pulse Resp B/P (MAP) Pulse Ox O2 Delivery O2 Flow Rate FiO2 09/06/20 06:18 97.2 83 18 115/76 (89) 97 09/05/20 05:55 Room Air I & O 09/05/20 09/05/20 09/06/20 15:00 23:00 07:00 Intake Total 960 ml 840 ml Balance 960 ml 840 ml Labs: Laboratory Tests Test 09/06/20 07:59 Glucose (Fingerstick) 117 mg/dL (70-99) H Current Medications: Meds: Laboratory Tests Test 09/06/20 07:59 Glucose (Fingerstick) 117 mg/dL Current Medications Medications (Trade) Dose Ordered Sig/Rober Route PRN Reason Start Time Stop Time Status Last Admin Dose Admin Sodium Chloride 1,000 ml @ 1,000 mls/hr 1X ONCE IV 08/20/20 18:45 08/20/20 19:44 DC 08/20/20 19:19 Aspirin (Aspirin Enteric Coated) 81 mg DAILY PO 08/21/20 09:00 09/06/20 13:38 DC 09/06/20 08:46 Docusate Sodium (Colace) 100 mg BID PO 08/21/20 09:00 09/06/20 13:38 DC 09/06/20 08:49 Furosemide (Lasix) 40 mg DAILY PO 08/21/20 09:00 09/06/20 13:38 DC 09/06/20 08:49 Gabapentin (Neurontin) 100 mg TID PO 08/21/20 09:00 09/06/20 13:38 DC 09/06/20 08:49 Guaifenesin (Mucinex Er) 600 mg BID PO 08/21/20 09:00 09/06/20 13:38 DC 09/06/20 08:48 Levothyroxine Sodium (Synthroid) 100 mcg DAILY06 PO 08/21/20 06:00 09/06/20 13:38 DC 09/06/20 04:57 Lisinopril (Prinivil) 5 mg DAILY PO 08/21/20 09:00 08/21/20 16:16 DC 08/21/20 10:13 Metformin HCl (Glucophage) 500 mg BIDWMEALS PO 08/21/20 08:00 09/06/20 13:38 DC 09/06/20 08:47 Metoprolol Tartrate (Lopressor) 12.5 mg BID PO 08/21/20 09:00 08/25/20 09:33 DC 08/25/20 08:32 Spironolactone (Aldactone) 25 mg DAILY PO 08/21/20 09:00 08/25/20 09:33 DC 08/25/20 08:31 Tamsulosin HCl (Flomax) 0.4 mg DAILY PO 08/21/20 09:00 09/06/20 13:38 DC 09/06/20 08:48 Vitamin D (Vitamin D3) 2,000 unit DAILY PO 08/21/20 09:00 09/06/20 13:38 DC 09/06/20 08:46 Guaifenesin/ Codeine Phosphate (Robitussin Ac) 10 ml PRN Q6HRS PRN PO COUGH 08/20/20 23:15 08/20/20 23:03 DC Lisinopril (Prinivil) 30 mg DAILY PO 08/21/20 09:00 08/25/20 09:33 DC 08/25/20 08:31 Magnesium Oxide (Magnesium Oxide) 400 mg DAILY PO 08/21/20 09:00 09/06/20 13:38 DC 09/06/20 09:00 Multivitamins/ Calcium (Thera-M Plus) 1 tab DAILY PO 08/21/20 09:00 09/06/20 13:38 DC 09/06/20 08:47 Pantoprazole Sodium (Protonix) 40 mg DAILYAC PO 08/21/20 07:30 09/06/20 13:38 DC 09/06/20 08:47 Potassium Chloride (Klor-Con) 10 meq DAILYWBKFT PO 08/21/20 08:00 09/06/20 13:39 DC 09/06/20 08:46 Demeclocycline HCl (Declomycin) 300 mg Q12HR PO 08/21/20 09:00 7/9/21 13:39 DC 09/06/20 08:47 Sodium Chloride (Sodium Chloride Tab) 2 gm BID PO 08/21/20 09:00 09/06/20 13:39 DC 09/06/20 08:48 Bupropion HCl (Wellbutrin) 200 mg BID PO 08/21/20 09:00 09/06/20 13:39 DC 09/06/20 08:46 Paliperidone Palmitate (Invega Sustenna) 234 mg QMONTH IM 09/19/20 09:00 09/06/20 13:39 DC Risperidone (RisperDAL) 0.5 mg TID PO 08/21/20 09:00 08/22/20 17:29 DC 08/22/20 14:00 Risperidone (RisperDAL) 1 mg DAILY PO 08/21/20 09:00 08/21/20 00:42 DC Medroxyprogesterone Acetate (Depo-Provera Im) 150 mg Q2WKS IM 09/03/20 09:00 09/06/20 13:39 DC 09/03/20 09:05 Oxcarbazepine (Trileptal) 600 mg DAILY PO 08/21/20 09:00 08/22/20 11:10 DC 08/22/20 08:25 Olanzapine (ZyPREXA ZYDIS) 5 mg PRN Q2HR PRN PO PSYCHOSIS 08/20/20 23:00 09/06/20 13:39 DC Guaifenesin (Robitussin) 200 mg PRN Q4HRS PRN PO COUGH 08/20/20 23:00 09/06/20 13:39 DC Acetaminophen (Tylenol) 650 mg PRN Q6HRS PRN PO MILD PAIN / TEMP > 100.3'F 08/20/20 23:00 09/06/20 13:39 DC Multi-Ingredient Ointment (Analgesic [place]) 1 muriel PRN QID PRN TP MUSCLE PAIN 08/20/20 23:00 09/06/20 13:39 DC Al Hydroxide/Mg Hydroxide (Mylanta Plus Xs) 15 ml PRN AFTMEALHC PRN PO DYSPEPSIA 08/20/20 23:00 09/06/20 13:39 DC Magnesium Hydroxide (Milk Of Magnesia) 2,400 mg PRN QHS PRN PO CONSTIPATION, 1ST CHOICE 08/20/20 23:00 09/06/20 13:39 DC 09/01/20 20:43 Nicotine (Nicoderm Cq 21mg Patch) 1 patch DAILY TD 08/21/20 09:00 09/06/20 13:39 DC 09/06/20 08:45 Risperidone (RisperDAL) 1 mg PRN DAILY PRN PO Anxiety/Agitation 08/21/20 00:45 09/06/20 13:39 DC Oxcarbazepine (Trileptal) 300 mg [id number] PO 08/22/20 14:00 08/26/20 15:47 DC 08/26/20 13:43 Risperidone (RisperDAL) 1 mg DAILY PO 08/23/20 09:00 09/06/20 13:39 DC 09/06/20 08:48 Risperidone (RisperDAL) 0.5 mg 1400,2100 PO 08/22/20 21:00 08/23/20 19:33 DC 08/23/20 14:42 Risperidone (RisperDAL) 0.5 mg DAILY@1400 PO 08/23/20 19:30 09/06/20 13:39 DC 09/05/20 14:20 Risperidone (RisperDAL) 1 mg HS PO 08/23/20 21:00 09/06/20 13:39 DC 09/05/20 19:59 Lactobacillus Rhamnosus (Culturelle) 1 cap BID PO 08/24/20 21:00 09/06/20 13:39 DC 09/06/20 08:47 Oxcarbazepine (Trileptal) 300 mg 1400,2100 PO 08/26/20 21:00 09/06/20 13:39 DC 09/05/20 20:00 Oxcarbazepine (Trileptal) 600 mg DAILY PO 08/27/20 09:00 09/06/20 13:39 DC 09/06/20 09:03 Polyethylene Glycol (miraLAX) 17 gm DAILY PO 09/03/20 09:00 09/06/20 13:39 DC 09/06/20 08:44 Bisacodyl (Dulcolax Tab) 10 mg PRN DAILY PRN PO CONSTIPATION, 2ND CHOICE 09/02/20 21:15 09/06/20 13:39 DC 09/02/20 22:09 Trazodone HCl (Desyrel) 100 mg PRN QHS PRN PO INSOMNIA, MAY REPEAT X1 09/04/20 17:15 09/06/20 13:39 DC 09/05/20 20:00 I have reviewed the current psychotropics carefully including drug interactions. Risk benefit ratio favors no change other than as noted in my dictated progress note. Diagnosis: Problems: (1) Bipolar disorder, current episode mixed, severe, with psychotic features (2) Anxiety disorder (3) Impulse control disorder (4) Schizoaffective disorder, bipolar type LEONARD ASHFORD MD Sep 06, 2020 22:14
--- NOTE | 2020-09-07 22:40 | DS ---
DATE OF DISCHARGE: 09/06/2020 DISCHARGE SUMMARY/PSYCHIATRIC PROGRESS NOTE This is a late entry, date of service 09/06/2020, covers the elements not covered in my initial note, 09/06/2020. REASON FOR ADMISSION: Please refer to the admission history for details. Briefly, the patient is a 59-year-old male referred back to us from [facility] on [address] [place] [address] on account of worsening mood swings within the context of his diagnosis of schizoaffective disorder, bipolar type, mixed with psychotic features. He was having sexually inappropriate behaviors and was inappropriate with young female nursing aides at the [facility]. He is yelling, agitated, throwing things in the hallway, threatening to kill staff. He slapped the arm of a peer, was name calling, belligerent. He had an acute exacerbation of his schizoaffective disorder, bipolar type. He had failed outpatient psychiatric interventions resulting in this referral. SIGNIFICANT FINDINGS AND CLINICAL COURSE: Following admission, the patient was seen daily individually by myself from a psychiatric standpoint, medical followup, Dr. Hall/Dr. Estrada. The patient continued to be extremely hyperverbal, grandiose with marked mood lability, inappropriate kissing of a another female peer on the unit whom he had known from the past at the [facility]. He redirected. Adjustments were made in his psychotropics and he seemed to respond to a combination of Wellbutrin 200 mg b.i.d., Invega Sustenna 234 mg IM every 28 days, next due on 09/19/2020, Depo-Provera 150 mg IM every 14 days, Trileptal 600 mg a.m., 300 mg at 1400 and 2100, Zyprexa p.r.n., gabapentin 100 mg t.i.d., Risperdal 1 mg 0900, 2100, 0.5 mg at 1400. Trazodone 100 mg at bedtime p.r.n. insomnia, june repeat x 1. At time of discharge, he was on 2 atypical antipsychotics, Invega Sustenna and oral Risperdal. Once he has been stable at the [facility] for 60 days, consideration should be given to gradually tapering the Risperdal if clinically appropriate. CONDITION ON DISCHARGE: Improved prior to discharge. REVIEW OF SYSTEMS: Ambulation impaired in wheelchair. No CV, , pulmonary, eye, ENT system symptoms on review. MENTAL STATUS EXAMINATION: Oriented to himself and situation. Speech coherent, less pressured. Abstraction fair. Computation impaired. Language function intact. Less paranoid. No suicidal or homicidal ideation. No inappropriate sexual behaviors. FINAL DIAGNOSES: Schizoaffective disorder, bipolar type, mixed with psychotic features, in partial remission. Schizophrenia, chronic, undifferentiated with acute exacerbation. Rest unchanged from admission. DISCHARGE MEDICATIONS: Please refer to the MRAD. DISCHARGE INSTRUCTIONS: Outpatient psychiatric and medical followup at the [facility]. Time for discharge day management greater than [address]: Beth TID: [id number]
[2020-09-19] MEDS ORDERED: PALIPERIDONE PALMITATE 234 MG/1.5 ML SYRINGE KIT. IM SCH (09:00)
== END 2020-09-06 13:00 | DRG 885 ==
LOC: ER 16:47 → GEROPSY 22:40
PROVIDERS: ADMIT Psychiatry & Neurology Psychiatry; ATTEND Psychiatry & Neurology Psychiatry
DX: F25.0 Schizoaffective disorder, bipolar type (principal); N17.0 Acute kidney failure with tubular necrosis; F32.9 Major depressive disorder, single episode, unspecified; J44.9 Chronic obstructive pulmonary disease, unspecified; I10 Essential (primary) hypertension; E03.9 Hypothyroidism, unspecified; Z66 Do not resuscitate; K21.9 Gastro-esophageal reflux disease without esophagitis; E11.9 Type 2 diabetes mellitus without complications; F63.9 Impulse disorder, unspecified; F41.1 Generalized anxiety disorder; Z91.018 Allergy to other foods; Z79.899 Other long term (current) drug therapy
CPT/HCPCS: 36415; 80053; 80061; 80329; 81001; 82306; 82607; 82947; 83036; 83540; 83550; 83735; 84436; 84443; 84480; 84484; 85025; 85379; 86592; 93005; 96360; 99407; J1050; 99285-25; G0480; J7030